=== PATIENT | male | born 1950 | race African-American/Black ===

== ENCOUNTER 2016-09-06 17:00 | Inpatient (IN) | payer MEDICARE ==
[~2016-09-06] VITALS: Ht 185.4 cm; Wt 91.6 kg
--- NOTE | 2016-09-06 17:11 | Emergency Room Report ---
History of Present Illness General Chief Complaint: Pain Source: Patient Present Illness HPI Patient is a 66-year-old male sent in from nursing facility after fall. Patient had recent hip surgery. The patient was noted to have increased pain to his left hip. Patient had been ambulatory with assistance previously. Patient was brought in by EMS. The patient did not strike his head. No loss of consciousness. Allergies: Coded Allergies: No Known Allergies (Unverified , 09/06/16) Patient History Past Medical History: see triage record Reviewed Nursing Documentation: PMH: Agreed, PSxH: Agreed Review of Systems All Other Systems: negative except mentioned in HPI Physical Exam Vital Signs Date Time Temp Pulse Resp B/P Pulse Ox O2 Delivery O2 Flow Rate FiO2 09/06/16 17:03 97.7 87 18 146/76 96 Room Air Sp02 EP Interpretation: reviewed, normal General Appearance: normal inspection, well appearing, no apparent distress, alert Head: atraumatic ENT: normal ENT inspection, hearing grossly normal, normal voice Neck: normal inspection, supple, no bony tend, limited range of motion Respiratory: normal inspection, lungs clear, normal breath sounds, no respiratory distress, no retraction, no wheezing Cardiovascular #1: regular rate, rhythm, no edema Gastrointestinal: normal inspection, normal bowel sounds, non tender, soft, no guarding, no hernia Genitourinary: no CVA tenderness Musculoskeletal: normal inspection, back normal, decreased range of motion - left hip Neurologic: alert, responsive, speech normal Psychiatric: normal inspection Skin: normal color, no rash, laceration - 1 cm Procedures Laceration/Wound Repair Laceration/Wound Repair : Wound Location: other - buttock Wound's Depth, Shape: superficial Wound Length (cm): 1 Irrigated w/ Saline (ccs): 100 Betadine Prep?: Yes Anesthesia: Lidocaine w/ Epi Volume Anesthetic (ccs): 3 Wound Debrided: minimal Wound Repaired With: sutures - 1 horizontal mattress Suture Size/Type: 3:0 Number of Sutures: 1 Layer Closure?: No Sterile Dressing Applied?: Yes Patient Tolerated: Well Complications: None Medical Decision Making Diagnostic Impression: Primary Impression: Fall Additional Impression: Laceration of buttock ER Course Patient presented for extremity pain after fall. Differential diagnosis included but was not limited to fracture, contusion, renal stone, vascular insufficiency, aortic aneurysm, cellulitis. The patient was noted to have a open wound. This was irrigated and closed with 3-0 nylon suture. This will require removal in approximately 10 days. Last Vital Signs Date Time Temp Pulse Resp B/P Pulse Ox O2 Delivery O2 Flow Rate FiO2 09/06/16 17:03 97.7 87 18 146/76 96 Room Air Jun Knapp Sep 06, 2016 17:11
[2016-09-06] MEDS ORDERED: Silver Nitrate Stick TOPIC ONE (17:15)
[2016-09-06] MEDS ORDERED: Lidocaine 2% 20mg/ml/Epi 0.005mg/ml 20ml vial ONE (17:18)
[2016-09-06] MEDS ORDERED: Neosporin Oint Ud Pkt TOPIC ONE (17:28)
[2016-09-06] MEDS ORDERED: Bacitracin Oint UD TOPIC ONE (17:30)
[2016-09-06 17:32] VITALS: BP 149/73
[2016-09-06] MEDS ORDERED: Morphine Sulfate 4mg/ml Inj IM ONE (17:45)
[2016-09-06] MEDS ORDERED: Lidocaine 2% 20mg/ml/Epi 0.005mg/ml 20ml vial INJ ONE (18:00)
[2016-09-06] MEDS ORDERED: XIFAXAN550 MG ORAL (18:43)
[2016-09-06] MEDS ORDERED: FERROUS SULFAT325 MG ORAL (18:43)
[2016-09-06] MEDS ORDERED: CALCIUM CARBON500 M1 PO (18:43)
[2016-09-06] MEDS ORDERED: SPIRONOLACTONE50 MG ORAL (18:43)
[2016-09-06] MEDS ORDERED: GABAPENTIN100 MG ORAL (18:43)
[2016-09-06] MEDS ORDERED: VITAMIN D250000 UNI1 ORAL ×2 (18:43→18:48)
[2016-09-06] MEDS ORDERED: VIBRAMYCIN100 MG ORAL (18:43)
[2016-09-06] MEDS ORDERED: LACTULOSE20 GM/301 ORAL (18:48)
[2016-09-06] MEDS ORDERED: PROTONIX40 MG ORAL ×2 (18:48→18:53)
[2016-09-06] MEDS ORDERED: SANTYL30 GM TP ×2 (18:53→19:06)
[2016-09-06] MEDS ORDERED: LEXAPRO20 MG ORAL (18:53)
[2016-09-06] MEDS ORDERED: ZYPREXA5 MG ORAL (18:53)
[2016-09-06] MEDS ORDERED: ASPIRIN81 MG ORAL (18:53)
[2016-09-06] MEDS ORDERED: CALCIUM ALGINATE1 GM TOPIC (19:06)
[2016-09-06] MEDS ORDERED: SENNA8.6 M2 PO (19:06)
[2016-09-06] MEDS ORDERED: MILK OF MA400 MG/51 ORAL (19:06)
[2016-09-06] MEDS ORDERED: DOCUSATE SODIU100 MG ORAL (19:06)
[2016-09-06] MEDS ORDERED: FLEET ENEMA133 ML RECTAL (19:06)
[2016-09-06] MEDS ORDERED: DULCOLAX10 MG RC (19:06)
[2016-09-06] MEDS ORDERED: ACETAMINOPHEN325 M1 ORAL (19:06)
[2016-09-06 19:30] VITALS: BP 154/84
[2016-09-06 19:49] LABS: MEAN CORPUSCULAR HEMOGLOBIN 36.1 PG (27.0-31.0); MEAN CORPUSCULAR HGB CONC 35.6 G/DL (32.0-36.0); MEAN CORPUSCULAR VOLUME 101 FL (80-99); MEAN PLATELET VOLUME 8.2 FL (6.5-10.1); PLATELET COUNT 65 K/UL (150-450); RED BLOOD COUNT 3.56 M/UL (4.70-6.10); RED CELL DISTRIBUTION WIDTH 14.6 % (11.6-14.8); WHITE BLOOD COUNT 5.4 K/UL (4.8-10.8)
[2016-09-06 19:50] LABS: BASOPHILS % (AUTO) 1.8 % (0.0-2.0); EOSINOPHILS % (AUTO) 0.5 % (0.0-3.0); LYMPHOCYTES % (AUTO) 9.3 % (20.0-45.0); MONOCYTES % (AUTO) 7.4 % (1.0-10.0); NEUTROPHILS % (AUTO) 80.9 % (45.0-75.0)
[2016-09-06 20:01] LABS: INR 1.6 (0.9-1.1); PROTHROMBIN TIME 16.4 SEC (9.30-11.50)
[2016-09-06 20:16] LABS: ALANINE AMINOTRANSFERASE 45 U/L (3-41); ALBUMIN/GLOBULIN RATIO 0.4 (1.0-2.7); ANION GAP 15 (5-15); ASPARTATE AMINO TRANSFERASE 111 U/L (5-40); CALCIUM 8.3 mg/dL (8.6-10.2); CARBON DIOXIDE 21 mEQ/L (20-30); CHLORIDE 100 mEQ/L (98-107); CREATININE 0.8 mg/dL (0.7-1.2); GLOMERULAR FILTRATION RATE > 60 mL/min (>60); HEMOLYSIS 5; POTASSIUM 4.3 mEQ/L (3.4-4.9); SODIUM 136 mEQ/L (135-145); TOTAL PROTEIN 7.1 g/dL (6.6-8.7)
[2016-09-06 20:38] LABS: BILIRUBIN,DIRECT 1.2 mg/dL (0.1-0.3)
[2016-09-06] MEDS ORDERED: Norco 5mg/325mg tab ORAL PRN (21:45)
[2016-09-06 22:00] VITALS: BP 147/77
--- NOTE | 2016-09-06 22:37 | Cardiology Progress Note ---
Assessment/Plan Assessment/Plan The patient is seen and examined. Full consult note will be dictated. Objective Last 24 Hour Vital Signs Date Time Temp Pulse Resp B/P Pulse Ox O2 Delivery O2 Flow Rate FiO2 09/06/16 22:00 97.5 93 19 147/77 97 Room Air 09/06/16 19:30 97.5 84 19 154/84 97 Room Air 09/06/16 17:32 97.5 84 19 149/73 97 Room Air 09/06/16 17:03 97.7 87 18 146/76 96 Room Air Laboratory Tests Test 09/06/16 19:10 White Blood Count 5.4 K/UL (4.8-10.8) Red Blood Count 3.56 M/UL (4.70-6.10) L Hemoglobin 12.9 G/DL (14.2-18.0) L Hematocrit 36.1 % (42.0-52.0) L Mean Corpuscular Volume 101 FL (80-99) H Mean Corpuscular Hemoglobin 36.1 PG (27.0-31.0) H Mean Corpuscular Hemoglobin Concent 35.6 G/DL (32.0-36.0) Red Cell Distribution Width 14.6 % (11.6-14.8) Platelet Count 65 K/UL (150-450) L Mean Platelet Volume 8.2 FL (6.5-10.1) Neutrophils (%) (Auto) 80.9 % (45.0-75.0) H Lymphocytes (%) (Auto) 9.3 % (20.0-45.0) L Monocytes (%) (Auto) 7.4 % (1.0-10.0) Eosinophils (%) (Auto) 0.5 % (0.0-3.0) Basophils (%) (Auto) 1.8 % (0.0-2.0) Prothrombin Time 16.4 SEC (9.30-11.50) H Prothromb Time International Ratio 1.6 (0.9-1.1) H Activated Partial Thromboplast Time 34 SEC (23-33) H Sodium Level 136 mEQ/L (135-145) Potassium Level 4.3 mEQ/L (3.4-4.9) Chloride Level 100 mEQ/L (98-107) Carbon Dioxide Level 21 mEQ/L (20-30) Anion Gap 15 (5-15) Blood Urea Nitrogen 12 mg/dL (7-23) Creatinine 0.8 mg/dL (0.7-1.2) Estimat Glomerular Filtration Rate > 60 mL/min (>60) Glucose Level 114 mg/dL (74-106) H Calcium Level 8.3 mg/dL (8.6-10.2) L Total Bilirubin 2.4 mg/dL (0.0-1.2) H Direct Bilirubin 1.2 mg/dL (0.1-0.3) H Aspartate Amino Transf (AST/SGOT) 111 U/L (5-40) H Alanine Aminotransferase (ALT/SGPT) 45 U/L (3-41) H Alkaline Phosphatase 148 U/L (40-129) H Total Protein 7.1 g/dL (6.6-8.7) Albumin 2.3 g/dL (3.5-5.2) L Globulin 4.8 g/dL Albumin/Globulin Ratio 0.4 (1.0-2.7) L ASHLEY URIBE Sep 06, 2016 22:37
[2016-09-06] MEDS: HYDROmorphone 1mg/ml Carpuject IVP PRN (22:54)
[2016-09-06] MEDS: Propranolol 10mg tab ORAL SCH (23:03)
[2016-09-07] VITALS (7 sets, daily range): BP systolic 119–156; BP diastolic 56–104
[2016-09-07] MEDS: Propranolol 10mg tab ORAL SCH ×3 (05:30→20:14)
[2016-09-07] MEDS: HYDROmorphone 1mg/ml Carpuject IVP PRN ×3 (05:31→20:15)
--- NOTE | 2016-09-07 09:24 | Diagnostic Imaging Report ---
Indication: PAIN Technique: CT scan of the pelvis performed without intravenous contrast material. Axial, coronal, and sagittal images were generated. Dose: Total Dose Length Product - DLP [address] Dose Index - CTDIvol(s) 14.4 mGy. Comparison: None Findings: The bones are osteopenic. The pelvis is intact. There is a left hip hemiarthroplasty. Fracture of the intertrochanteric region of the left femur is noted. There is some soft tissue swelling in the region of the fracture. Degenerative changes are noted in the spine. The aorta and iliac vessels are calcified. There is some ascites in the pelvis. Impression: Left hip hemiarthroplasty. Fracture of the intertrochanteric region of the left femur around the prosthesis. Soft tissue swelling (hematoma) in the proximal left thigh. Atherosclerotic change. Ascites. The above report is concordant with preliminary reading by [employer] . The CT scanner at [facility] is accredited by the [employer] and the scans are performed using protocols designed to limit radiation exposure to as low as reasonably achievable to attain images of sufficient resolution adequate for diagnostic evaluation.
[2016-09-07] MEDS ORDERED: CALCIUM CARBON500 M1 PO (09:56)
--- NOTE | 2016-09-07 10:21 | Diagnostic Imaging Report ---
Indication: PREOP. Technique: XRAY CHEST 1 V. Comparison: None Findings: The heart is normal in size. The lungs are clear. No pleural fluid. There is atherosclerotic change of the aorta. The bones are unremarkable. Impression: Atherosclerotic change. Otherwise negative chest.
[2016-09-07] MEDS ORDERED: Norco 5mg/325mg tab ORAL PRN (10:30)
[2016-09-07 12:06] LABS: CHOLESTEROL/HDL RATIO 2.7 (3.3-4.4)
[2016-09-07 12:12] LABS: THYROID STIMULATING HORMONE 2.23 uIU/mL (0.300-4.500)
[2016-09-07 12:47] LABS: HEMOGLOBIN A1C 4.8 % (< 6.0)
[2016-09-07] MEDS: Lactulose 20gm/30ml UDC ORAL SCH ×2 (12:52→17:59)
[2016-09-07] MEDS: Rifaximin 550mg tab ORAL SCH (17:59)
--- NOTE | 2016-09-07 18:05 | General Progress Note ---
Assessment/Plan Status: stable Assessment/Plan 1- Acute Lt hip Ellie-Prostatic fracture 2- Alcoholic Liver Cirrhosis 3- Thrombocytopenia 4- Anemia 5- Hypercoagulation state 6- Dementia GI, Hemonch, Cardiology services notified and consulted Anticipated surgery on Friday By Dr Dolan Subjective ROS Limited/Unobtainable: Yes - patient demented Allergies: Coded Allergies: No Known Allergies (Unverified , 09/06/16) Objective Last 24 Hour Vital Signs Date Time Temp Pulse Resp B/P Pulse Ox O2 Delivery O2 Flow Rate FiO2 09/07/16 15:42 98.1 76 21 150/71 97 Room Air 09/07/16 14:00 65 95/47 09/07/16 12:39 98.2 68 21 138/88 97 Room Air 09/07/16 08:08 97.9 67 21 156/104 97 Room Air 09/07/16 05:30 72 143/86 09/07/16 04:00 97.9 72 16 143/86 93 Room Air 09/07/16 00:00 98.3 93 17 155/98 97 Room Air 09/06/16 23:03 93 147/77 09/06/16 22:15 97.5 93 19 147/77 97 Room Air 09/06/16 22:00 97.5 93 19 147/77 97 Room Air 09/06/16 19:30 97.5 84 19 154/84 97 Room Air Intake and Output 09/06/16 09/07/16 19:00 07:00 Intake Total 240 ml Balance 240 ml Intake Oral 240 ml # Voids 1 Laboratory Tests 09/06/16 19:10: White Blood Count 5.4, Red Blood Count 3.56L, Hemoglobin 12.9L, Hematocrit 36.1L , Mean Corpuscular Volume 101H, Mean Corpuscular Hemoglobin 36.1H, Mean Corpuscular Hemoglobin Concent 35.6, Red Cell Distribution Width 14.6, Platelet Count 65L, Mean Platelet Volume 8.2, Neutrophils (%) (Auto) 80.9H, Lymphocytes ( %) (Auto) 9.3L, Monocytes (%) (Auto) 7.4, Eosinophils (%) (Auto) 0.5, Basophils (%) (Auto) 1.8, Prothrombin Time 16.4H, Prothromb Time International Ratio 1.6H , Activated Partial Thromboplast Time 34H, Sodium Level 136, Potassium Level 4.3 , Chloride Level 100, Carbon Dioxide Level 21, Anion Gap 15, Blood Urea Nitrogen 12, Creatinine 0.8, Estimat Glomerular Filtration Rate > 60, Glucose Level 114H, Calcium Level 8.3L, Total Bilirubin 2.4H, Direct Bilirubin 1.2H, Aspartate Amino Transf (AST/SGOT) 111H, Alanine Aminotransferase (ALT/SGPT) 45H , Alkaline Phosphatase 148H, Total Protein 7.1, Albumin 2.3L, Globulin 4.8, Albumin/Globulin Ratio 0.4L 09/07/16 11:27: Hemoglobin A1c 4.8, Ammonia 63H, Triglycerides Level 49, Cholesterol Level 119, LDL Cholesterol 65, HDL Cholesterol 44, Cholesterol/HDL Ratio 2.7L, Thyroid Stimulating Hormone (TSH) 2.230 Height (Feet): 6 Height (Inches): 1.00 Weight (Pounds): 202 General Appearance: no apparent distress EENT: PERRL/EOMI Neck: supple Cardiovascular: normal rate Respiratory/Chest: lungs clear Abdomen: soft Extremities: non-tender Neurologic: disoriented, other - demented Shanita Oden MD Sep 07, 2016 18:05
--- NOTE | 2016-09-07 18:14 | Cardiology Progress Note ---
Assessment/Plan Assessment/Plan 1. The patient is clear for "intermediate risk" orthopedic surgery with the risk of coronary artery events perioperatively estimated to be less than 1%. 2. s/p fall with no associated syncope/pre-syncope. 3. Hx of HTN, will increase propranolol dose. 4. Hx of liver cirrhosis Subjective Subjective No cardiac events. Not on the tele unit. Objective Last 24 Hour Vital Signs Date Time Temp Pulse Resp B/P Pulse Ox O2 Delivery O2 Flow Rate FiO2 09/07/16 15:42 98.1 76 21 150/71 97 Room Air 09/07/16 14:00 65 95/47 09/07/16 12:39 98.2 68 21 138/88 97 Room Air 09/07/16 08:08 97.9 67 21 156/104 97 Room Air 09/07/16 05:30 72 143/86 09/07/16 04:00 97.9 72 16 143/86 93 Room Air 09/07/16 00:00 98.3 93 17 155/98 97 Room Air 09/06/16 23:03 93 147/77 09/06/16 22:15 97.5 93 19 147/77 97 Room Air 09/06/16 22:00 97.5 93 19 147/77 97 Room Air 09/06/16 19:30 97.5 84 19 154/84 97 Room Air Intake and Output 09/06/16 09/07/16 19:00 07:00 Intake Total 240 ml Balance 240 ml Intake Oral 240 ml # Voids 1 2D Echo: LVEF 60%, Mild LVH, Mild LAE, RVSP 29, Mod MR, Grade I LVDD Laboratory Tests Test 09/06/16 19:10 09/07/16 11:27 White Blood Count 5.4 K/UL (4.8-10.8) Red Blood Count 3.56 M/UL (4.70-6.10) L Hemoglobin 12.9 G/DL (14.2-18.0) L Hematocrit 36.1 % (42.0-52.0) L Mean Corpuscular Volume 101 FL (80-99) H Mean Corpuscular Hemoglobin 36.1 PG (27.0-31.0) H Mean Corpuscular Hemoglobin Concent 35.6 G/DL (32.0-36.0) Red Cell Distribution Width 14.6 % (11.6-14.8) Platelet Count 65 K/UL (150-450) L Mean Platelet Volume 8.2 FL (6.5-10.1) Neutrophils (%) (Auto) 80.9 % (45.0-75.0) H Lymphocytes (%) (Auto) 9.3 % (20.0-45.0) L Monocytes (%) (Auto) 7.4 % (1.0-10.0) Eosinophils (%) (Auto) 0.5 % (0.0-3.0) Basophils (%) (Auto) 1.8 % (0.0-2.0) Prothrombin Time 16.4 SEC (9.30-11.50) H Prothromb Time International Ratio 1.6 (0.9-1.1) H Activated Partial Thromboplast Time 34 SEC (23-33) H Sodium Level 136 mEQ/L (135-145) Potassium Level 4.3 mEQ/L (3.4-4.9) Chloride Level 100 mEQ/L (98-107) Carbon Dioxide Level 21 mEQ/L (20-30) Anion Gap 15 (5-15) Blood Urea Nitrogen 12 mg/dL (7-23) Creatinine 0.8 mg/dL (0.7-1.2) Estimat Glomerular Filtration Rate > 60 mL/min (>60) Glucose Level 114 mg/dL (74-106) H Calcium Level 8.3 mg/dL (8.6-10.2) L Total Bilirubin 2.4 mg/dL (0.0-1.2) H Direct Bilirubin 1.2 mg/dL (0.1-0.3) H Aspartate Amino Transf (AST/SGOT) 111 U/L (5-40) H Alanine Aminotransferase (ALT/SGPT) 45 U/L (3-41) H Alkaline Phosphatase 148 U/L (40-129) H Total Protein 7.1 g/dL (6.6-8.7) Albumin 2.3 g/dL (3.5-5.2) L Globulin 4.8 g/dL Albumin/Globulin Ratio 0.4 (1.0-2.7) L Hemoglobin A1c 4.8 % (< 6.0) Ammonia 63 umol/L (16-60) H Triglycerides Level 49 mg/dL (< 150) Cholesterol Level 119 mg/dL (< 200) LDL Cholesterol 65 mg/dL (60-99) HDL Cholesterol 44 mg/dL (> 60) Cholesterol/HDL Ratio 2.7 (3.3-4.4) L Thyroid Stimulating Hormone (TSH) 2.230 uIU/mL (0.300-4.500) Objective HEENT: Atruamatic, normocephalic, PERRLA, EOMI Neck: Negative JVD, no carotid bruit, upstroke 2+ B/L Respiratory: normal inspection, lungs clear, normal breath sounds Cardiovascular: Normal S1 S2, regular rate, rhythm, no murmurs, gallops or rubs Gastrointestinal: normal inspection, normal bowel sounds, non tender, soft, no guarding Musculoskeletal: no edema, clubbing or cyanosis, decreased range of motion - left hip ASHLEY URIBE Sep 07, 2016 18:14
[2016-09-07] MEDS ORDERED: Phytonadione 1 MG in D5W 55 ML IVPB ONE (19:00)
[2016-09-07 22:03] LABS: INR 1.7 (0.9-1.1)
[2016-09-07 22:20] LABS: PSA TOTAL < 0.1 ng/mL (< 4.5)
--- NOTE | 2016-09-07 23:08 | Consultation ---
DATE OF CONSULTATION: 09/06/2016 CARDIOLOGY CONSULTATION REFERRING PHYSICIAN: Shanita Oden M.D. REASON FOR CONSULTATION: Preoperative cardiac assessment for noncardiac surgery. HISTORY OF PRESENT ILLNESS: The patient is a very pleasant 66-year-old gentleman, who is sent from nursing facility after an episode of fall, which was not associated with presyncope or syncopal event. Apparently, the patient had a trip and injured his left hip. It is important to mention that the he had left hemiarthroplasty, not too long ago plus trying to ambulate with a walker in the nursing facility. Head CT of pelvic area showed the fracture of the intertrochanteric region of the left femur around the prosthesis and presence of the left hip hemiarthroplasty. Cardiology consultation was made at request of Dr. Oden for preoperative cardiac assessment, as he is scheduled for operation on Friday. At this time, the patient is denying any chest pain or shortness of breath. He states that he walks a few steps with a walker at the nursing facility without having significant symptoms. PAST MEDICAL HISTORY: Significant for 1. History of hepatic encephalopathy. 2. History of liver cirrhosis. 3. History of anemia. 4. History of gastroesophageal reflux. 5. History of depression. 6. History of bipolar disorder. 7. History of left hip hemiarthroplasty. PAST SURGICAL HISTORY: Left hip hemiarthroplasty. MEDICATIONS: List of medications nursing facility includes acetaminophen 650 mg q.4 h. p.r.n. pain and temperature above 101 degrees, Dulcolax 10 mg rectal p.r.n. constipation, calcium carbonate 500 mg twice daily, Santyl one application daily, Colace 100 mg twice daily, Lexapro 20 mg p.o. daily, ferrous sulfate 325 mg twice daily, lactulose 15 mL daily, milk of magnesia 30 mL p.o. daily p.r.n. constipation, fleet enema 133 mL rectal p.r.n. constipation, Zyprexa 5 mg p.o. at bedtime, Protonix 40 mg p.o. daily before breakfast, Zyprexa 550 mg twice daily, senna 8.6 mg p.o. daily, and Aldactone 50 mg p.o. daily. ALLERGIES: No known drug allergies. REVIEW OF SYSTEMS: HEENT: Denies any headache, diplopia, or blurred vision. Constitutional: Generalized weakness. Denies any fever, chills, or night sweats. Cardiovascular: Denies any chest pain or shortness of breath. Denies any PND or orthopnea. Complaints of bilateral lower extremity edema. Denies any syncope or palpitation. Pulmonary: Denies any cough, hemoptysis, or wheezing. Gastrointestinal: Denies any nausea, vomiting, or diarrhea. He has a history of the liver cirrhosis. Genitourinary: Denies any hematuria, dysuria, or incontinence. Neurology: Denies any motor dysfunction, sensory deficit, or altered speech. Musculoskeletal: He has got bilateral lower extremity edema. Difficulty any ambulation. He was using a walker after his surgery at nursing facility and tolerating a few steps. PHYSICAL EXAMINATION: GENERAL: The patient is a pleasant 62-year-old gentleman, older than the stated age, not in no apparent respiratory distress. VITAL SIGNS: Blood pressure at time of arrival to the hospital was 146/76, pulse 87, respirations of 18, temperature 97.7 degrees Fahrenheit, and O2 saturation 96% on room air. HEENT: Atraumatic and normocephalic. Anicteric. Pupils are equal, round, and reactive to light and accommodation. Extraocular muscles intact. NECK: JVP is less than 5 cm. No carotid bruits. Carotid upstrokes 2+ bilaterally. LUNGS: Clear to auscultation bilaterally. CARDIOVASCULAR: Normal S1 and S2. Regular rate and rhythm. There is no gallops, murmurs and rubs. PMI is at fourth costosternal in left midclavicular line. ABDOMEN: Soft, nontender, and nondistended. No hepatosplenomegaly. Positive bowel sounds. EXTREMITIES: There is 1 to 2+ of bilateral lower extremity edema. Also, there is tenderness in the left hip area with motion. LABORATORY AND DIAGNOSTIC DATA: Chest x-ray showed atherosclerotic changes and no acute cardiopulmonary disease. A 12-lead electrocardiogram not done. Laboratory findings, WBC is 5.4, hemoglobin of 12.9, hematocrit 36.1 and platelet count of 265,000. Sodium 136, potassium 4.3, chloride 100, bicarbonate 21, BUN of 12, creatinine 0.8 and glucose is 114. Calcium is 8.3. ASSESSMENT AND PLAN: The patient is a very unfortunate 66-year-old gentleman who is seen in Cardiology consultation for preoperative cardiac assessment, as he is scheduled for left hip open reduction and internal fixation. The patient does not have any history of coronary artery disease, congestive heart failure, or cardiac arrhythmias. His risk factors for coronary artery disease includes hypertension. A 12-lead electrocardiogram shows hypertension. In order to obtain clearance, we would like to obtain 2D echocardiography for assessment of left ventricular systolic function and also 12-lead electrocardiogram. Chest x-ray will also be ordered. A chest x-ray has shown no acute cardiopulmonary disease. Further diagnostic decision will be based on the area result of the above studies. History of hypertension. I would start the patient on low-dose propranolol for portal hypertension in view of his liver cirrhosis and also control blood pressure. History of liver cirrhosis. Status post fall with left intertrochanteric femur fracture. History of left hip hemiarthroplasty. I would like to thank, Dr. Oden, for allowing me to participate in the care of this patient. Wilner Mcnair M.D. DR: DAJA JOB#: [id number] CC:
[2016-09-08] MEDS: HYDROmorphone 1mg/ml Carpuject IVP PRN ×4 (00:51→19:59)
--- NOTE | 2016-09-08 01:28 | History and Physical Report ---
DATE OF ADMISSION: 09/06/2016 SOURCE OF INFORMATION: EMR. HISTORY OF PRESENT ILLNESS: The patient is a pleasant 66-year-old male with a history of left side hip fracture status post surgery. The patient is currently a resident of a senior living. I had a call from the staff regarding an incidental fall and pain in the left hip area. Requested the patient to be transferred to the hospital. Initial evaluation in the emergency room shows a fracture of the intertrochanteric region of the left femur around the prosthesis. The patient was admitted for additional evaluation and surgery. PAST MEDICAL HISTORY: Cirrhosis, anxiety, depression, hypertension, dementia, history of alcoholism, and anemia. PAST SURGICAL HISTORY: Left-sided hip surgery. ALLERGIES: NKDA. SOCIAL HISTORY: The patient is positive for prior history of alcoholism. The patient is a resident of a [facility] facility (limited source of information). Remainder information cannot be obtained. FAMILY HISTORY: Reviewed and noncontributory. Review Of Systems: Limited as the patient is closely demented, however, appears to be stable and comfortable. No chest pain or shortness of breath. No abdominal pain. No fever or chills. No severe headache or blurry vision is noted. PHYSICAL EXAMINATION: VITAL SIGNS: Blood pressure 140/70, temperature 98.2 degrees, and pulse oximetry 98% on room air. HEAD AND NECK: Atraumatic and normocephalic. CHEST: Clear to auscultation. HEART: S1 and S2. Regular rate and rhythm. ABDOMEN: Soft. Tenderness in the right upper quadrant of abdomen. No evidence of shifting dullness to suggest . NEUROLOGY: The patient is awake and alert x1. Positive for gross dementia. LABORATORY AND DIAGNOSTIC DATA: WBC 5.4, hemoglobin 12.9, and platelets 65,000. Sodium 136, potassium 4.3, BUN 12, and creatinine 0.8. Calcium 8.3. AST 110 and ALT 45. Ammonia 63. Albumin 2.3. INR 1.6. Pelvic CT scan and chest x-ray are noted. ASSESSMENT AND PLAN: 1. Left-sided periprosthetic intertrochanteric hip fracture. 2. Liver cirrhosis. 3. Psychiatric disorder. 4. Dementia. 5. Iron deficiency anemia. 6. Hypercoagulation. 7. Abnormal blood sugar. 8. Gastrointestinal and deep vein thrombosis prophylaxis. PLAN OF CARE: We will continue with the SCDs. Surgeon Dr. Dolan and Cardiology Dr. Mcnair have been consulted. We will avoid aspirin and heparin. We will provide 1 mg vitamin K. We will monitor the PT/PTT/NR. Continue with the current pain management with Shannon and Dilaudid p.r.n. Shanita Oden M.D. DR: Jimmie JOB#: [id number] CC: LEATHA
--- NOTE | 2016-09-08 03:38 | Consultation ---
DATE OF CONSULTATION: HEMATOLOGY/ONCOLOGY CONSULTATION CONSULTING PHYSICIAN: Abril Snyder M.D ATTENDING PHYSICIAN: Shanita Oden M.D. REASON FOR CONSULTATION: Coagulopathy, thrombocytopenia, and anemia. CURRENT COMPLAINT/HISTORY OF PRESENT ILLNESS: Dear Dr. Oden, Today, I had an opportunity to see one of your patient, Mr. Channing Freed, who as you are well aware 66-year-old delightful gentleman with past medical history remarkable for history of hip fracture, alcoholic liver cirrhosis, thrombocytopenia, anemia, and dementia. The patient was found to have fall episodes and developed acute left hip periprosthetic fracture. The patient will be scheduled surgery by Dr. Dolan coming Friday. coagulopathy as well as thrombocytopenia and anemia. PAST MEDICAL HISTORY: 1. History of left hip fracture. 2. Alcoholic liver cirrhosis. 3. Thrombocytopenia. 4. Anemia of chronic disease. 5. 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 6. Dementia. MEDICATIONS: 1. Spironolactone. 2. Celexa. 3. 4. Protonix. 5. . 6. . 7. Ferrous sulfate. 8. . 9. Tylenol. 10. Dilaudid. ALLERGIES: NKDA. FAMILY HISTORY: Noncontributory. SOCIAL HISTORY: No history of smoking. No history of alcohol abuse. No history of illicit drug use. REVIEW OF SYSTEMS: General Description: The patient is not in any significant distress, but is chronically ill. Respiratory: Mild shortness of breath on exertion. Gastrointestinal: The patient claims constipation. Neuromuscular: The patient claims muscle weakness. PHYSICAL EXAMINATION: VITAL SIGNS: T-max 97 degrees, respiratory rate 20, heart rate 80, and blood pressure 130/80. HEART: S1 and S2 regular. ABDOMEN: Soft and benign. No organomegaly present. Bowel sounds present. EXTREMITIES: No cyanosis, clubbing, or edema. LABORATORY AND DIAGNOSTIC DATA: , AST 45. Coagulation shows INR 1.6. Hematology show WBC 5.4, hemoglobin 12.9, hematocrit 36.1 and platelets 65,000. IMPRESSION: 1. Thrombocytopenia . 2. Alcoholic liver cirrhosis. 3. Anemia of chronic disease. 4. 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 5. secondary to alcoholic liver cirrhosis. 6. Acute left hip periprosthetic fracture. 7. Alcoholic liver cirrhosis. 8. History of alcohol abuse. 9. Dementia. 10. Psychosis. 11. Failure to thrive. RECOMMENDATIONS: 1. Watch count. 2. Watch coagulopathy. 3. bilateral lowe extremities to rule out DVT. 4. Vitamin K prior to surgery. 5. Platelet transfusion prior to surgery. 6. Close followup. 7. will be appropriate to do platelet transfusion prior to surgery to target platelet count 100,000 and above prior to surgery. 8. Case will be discussed with orthopedic surgeon, Dr. Dolan. All recommendations . Dear Dr. Oden, I greatly appreciate the opportunity to participate in care of one of your patient. this interesting and challenging case. Jacky Snyder MD DR: VARGAS JOB#: [id number] CC:
[2016-09-08 04:00] VITALS: BP 126/61
[2016-09-08 07:12] LABS: MEAN CORPUSCULAR HEMOGLOBIN 33.5 PG (27.0-31.0); MEAN CORPUSCULAR HGB CONC 33.2 G/DL (32.0-36.0); MEAN CORPUSCULAR VOLUME 101 FL (80-99); PLATELET COUNT 96 K/UL (150-450); RED BLOOD COUNT 3.25 M/UL (4.70-6.10); RED CELL DISTRIBUTION WIDTH 14.4 % (11.6-14.8); WHITE BLOOD COUNT 10.5 K/UL (4.8-10.8)
[2016-09-08 07:42] LABS: ALANINE AMINOTRANSFERASE 38 U/L (3-41); ALBUMIN/GLOBULIN RATIO 0.4 (1.0-2.7); ANION GAP 12 (5-15); ASPARTATE AMINO TRANSFERASE 80 U/L (5-40); CALCIUM 8.2 mg/dL (8.6-10.2); CARBON DIOXIDE 23 mEQ/L (20-30); CHLORIDE 98 mEQ/L (98-107); GLOMERULAR FILTRATION RATE > 60 mL/min (>60); HEMOLYSIS 3; POTASSIUM 4.6 mEQ/L (3.4-4.9); SODIUM 133 mEQ/L (135-145); TOTAL PROTEIN 6.1 g/dL (6.6-8.7)
[2016-09-08 08:00] LABS: BILIRUBIN,DIRECT 1.1 mg/dL (0.1-0.3)
[2016-09-08 08:13] VITALS: BP 114/62
[2016-09-08 08:19] LABS: ANISOCYTOSIS 1+; BAND NEUTROPHILS % (MANUAL) 0 % (0-8); BASOPHILS % (MANUAL) 0 % (0-2); EOSINOPHILS % (MANUAL) 0 % (0-3); HYPOCHROMASIA 1+; LYMPHOCYTES % (MANUAL) 4 % (20-45); MACROCYTES 1+; NEUTROPHILS % (MANUAL) 91 % (45-75); PLATELET ESTIMATE DECREASED; PLATELET MORPHOLOGY NORMAL; TOTAL CELLS COUNTED 100
[2016-09-08] MEDS: Spironolactone 50mg tab ORAL SCH (08:20)
[2016-09-08] MEDS: Rifaximin 550mg tab ORAL SCH ×2 (08:20→18:00)
[2016-09-08] MEDS: Lactulose 20gm/30ml UDC ORAL SCH ×3 (08:21→18:00)
[2016-09-08] MEDS: Propranolol 10mg tab ORAL SCH ×4 (08:22→21:00)
--- NOTE | 2016-09-08 10:42 | General Progress Note ---
Assessment/Plan Status: stable Assessment/Plan 1. Left-sided periprosthetic intertrochanteric hip fracture. 2. Liver cirrhosis. 3. Psychiatric disorder. 4. Dementia. 5. Iron deficiency anemia. 6. Hypercoagulation. 7. Abnormal blood sugar. 8. Gastrointestinal and deep vein thrombosis prophylaxis. GI, Hemonch, Cardiology Notes were reviewed Anticipated surgery on Friday By Dr Magdaleno Ojeda ROS Limited/Unobtainable: Yes Constitutional: Reports: no symptoms HEENT: Reports: no symptoms Respiratory: Reports: no symptoms Allergies: Coded Allergies: No Known Allergies (Unverified , 09/06/16) Objective Last 24 Hour Vital Signs Date Time Temp Pulse Resp B/P Pulse Ox O2 Delivery O2 Flow Rate FiO2 09/08/16 08:22 66 114/62 09/08/16 08:13 97.2 66 21 114/62 96 Room Air 09/08/16 06:23 97.9 09/08/16 04:00 99.0 73 18 126/61 95 Room Air 09/07/16 23:39 97.9 68 18 126/56 99 Room Air 09/07/16 20:14 65 119/76 09/07/16 20:00 97.3 65 18 119/76 100 Room Air 09/07/16 15:42 98.1 76 21 150/71 97 Room Air 09/07/16 14:00 65 95/47 09/07/16 12:39 98.2 68 21 138/88 97 Room Air Intake and Output 09/07/16 09/08/16 19:00 07:00 Intake Total 240 ml 450 ml Output Total 600 ml Balance 240 ml -150 ml Intake Oral 240 ml 450 ml Output Urine Total 600 ml # Voids 3 Laboratory Tests 09/07/16 11:27: Hemoglobin A1c 4.8, Ammonia 63H, Triglycerides Level 49, Cholesterol Level 119, LDL Cholesterol 65, HDL Cholesterol 44, Cholesterol/HDL Ratio 2.7L, Thyroid Stimulating Hormone (TSH) 2.230 09/07/16 21:30: Prothrombin Time 18.0H, Prothromb Time International Ratio 1.7H, Alpha Fetoprotein [Pending], Carcinoembryonic Antigen 9.1H, Prostate Specific Antigen < 0.1, Hepatitis A IgM Antibody [Pending], Hepatitis B Surface Antigen [Pending] , Hepatitis B Core IgM Antibody [Pending], Hepatitis C Antibody [Pending], HIV ( 1&2) Antibody Rapid Negative 09/08/16 06:15: White Blood Count 10.5#, Red Blood Count 3.25L, Hemoglobin 10.9L, Hematocrit 32.8L, Mean Corpuscular Volume 101H, Mean Corpuscular Hemoglobin 33.5H, Mean Corpuscular Hemoglobin Concent 33.2, Red Cell Distribution Width 14.4, Platelet Count 96L, Mean Platelet Volume 8.0, Neutrophils (%) (Auto) , Lymphocytes (%) ( Auto) , Monocytes (%) (Auto) , Eosinophils (%) (Auto) , Basophils (%) (Auto) , Differential Total Cells Counted 100, Neutrophils % (Manual) 91H, Lymphocytes % (Manual) 4L, Monocytes % (Manual) 5, Eosinophils % (Manual) 0, Basophils % ( Manual) 0, Band Neutrophils 0, Platelet Estimate DecreasedL, Platelet Morphology Normal, Hypochromasia 1+, Anisocytosis 1+, Macrocytosis 1+, Sodium Level 133L, Potassium Level 4.6, Chloride Level 98, Carbon Dioxide Level 23, Anion Gap 12, Blood Urea Nitrogen 26H, Creatinine 1.0, Estimat Glomerular Filtration Rate > 60, Glucose Level 107H, Calcium Level 8.2L, Total Bilirubin 2.6H, Direct Bilirubin 1.1H, Aspartate Amino Transf (AST/SGOT) 80H, Alanine Aminotransferase (ALT/SGPT) 38, Alkaline Phosphatase 112, Total Protein 6.1L, Albumin 1.9L, Globulin 4.2, Albumin/Globulin Ratio 0.4L Height (Feet): 6 Height (Inches): 1.00 Weight (Pounds): 202 General Appearance: no apparent distress EENT: PERRL/EOMI Neck: supple Cardiovascular: normal rate Respiratory/Chest: lungs clear Abdomen: soft Extremities: other - pianful on movement. Limited ROM of left LE Neurologic: disoriented, other - demented. limited source of info Shanita Oden MD Sep 08, 2016 10:42
[2016-09-08 12:15] VITALS: BP 111/47
--- NOTE | 2016-09-08 12:55 | General Progress Note ---
Assessment/Plan Assessment/Plan IMPRESSION: 1. Thrombocytopenia secondary to alcoholic liver cirrhosis. Is cleared for surgery, plt close to 100k as required and INR <2 2. Alcoholic liver cirrhosis. 3. Anemia of chronic disease. 4. 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 5. Acute left hip periprosthetic fracture. 6. History of alcohol abuse. 7. Dementia. 8. Psychosis. 9. Failure to thrive. RECOMMENDATIONS: 1. Watch counts, transfuse to hgb >7. 2. Watch coagulopathy. 3. Duplex bilateral lower extremities to rule out DVT. 4. Vitamin K prior to surgery. 5. Platelet transfusion prior to surgery. 6. Close followup. 7. Will be appropriate to do platelet transfusion prior to surgery to target platelet count 100,000 and above prior to surgery. 8. Case will be discussed with orthopedic surgeon, Dr. Dolan. 9. Appreciate consultation! Subjective ROS Limited/Unobtainable: Yes Constitutional: Reports: no symptoms HEENT: Reports: no symptoms Cardiovascular: Reports: no symptoms Respiratory: Reports: no symptoms Gastrointestinal/Abdominal: Reports: constipated Genitourinary: Reports: no symptoms Neurologic/Psychiatric: Reports: no symptoms Endocrine: Reports: no symptoms Hematologic/Lymphatic: Reports: anemia Allergies: Coded Allergies: No Known Allergies (Unverified , 09/06/16) Subjective pt resting, awaits hip surgery Saturday 09/09 Objective Last 24 Hour Vital Signs Date Time Temp Pulse Resp B/P Pulse Ox O2 Delivery O2 Flow Rate FiO2 09/08/16 12:15 97.6 64 20 111/47 95 Room Air 09/08/16 08:22 66 114/62 09/08/16 08:13 97.2 66 21 114/62 96 Room Air 09/08/16 06:23 97.9 09/08/16 04:00 99.0 73 18 126/61 95 Room Air 09/07/16 23:39 97.9 68 18 126/56 99 Room Air 09/07/16 20:14 65 119/76 09/07/16 20:00 97.3 65 18 119/76 100 Room Air 09/07/16 15:42 98.1 76 21 150/71 97 Room Air 09/07/16 14:00 65 95/47 Intake and Output 09/07/16 09/08/16 19:00 07:00 Intake Total 240 ml 450 ml Output Total 600 ml Balance 240 ml -150 ml Intake Oral 240 ml 450 ml Output Urine Total 600 ml # Voids 3 Laboratory Tests 09/07/16 21:30: Prothrombin Time 18.0H, Prothromb Time International Ratio 1.7H, Alpha Fetoprotein [Pending], Carcinoembryonic Antigen 9.1H, Prostate Specific Antigen < 0.1, Hepatitis A IgM Antibody [Pending], Hepatitis B Surface Antigen [Pending] , Hepatitis B Core IgM Antibody [Pending], Hepatitis C Antibody [Pending], HIV ( 1&2) Antibody Rapid Negative 09/08/16 06:15: White Blood Count 10.5#, Red Blood Count 3.25L, Hemoglobin 10.9L, Hematocrit 32.8L, Mean Corpuscular Volume 101H, Mean Corpuscular Hemoglobin 33.5H, Mean Corpuscular Hemoglobin Concent 33.2, Red Cell Distribution Width 14.4, Platelet Count 96L, Mean Platelet Volume 8.0, Neutrophils (%) (Auto) , Lymphocytes (%) ( Auto) , Monocytes (%) (Auto) , Eosinophils (%) (Auto) , Basophils (%) (Auto) , Differential Total Cells Counted 100, Neutrophils % (Manual) 91H, Lymphocytes % (Manual) 4L, Monocytes % (Manual) 5, Eosinophils % (Manual) 0, Basophils % ( Manual) 0, Band Neutrophils 0, Platelet Estimate DecreasedL, Platelet Morphology Normal, Hypochromasia 1+, Anisocytosis 1+, Macrocytosis 1+, Sodium Level 133L, Potassium Level 4.6, Chloride Level 98, Carbon Dioxide Level 23, Anion Gap 12, Blood Urea Nitrogen 26H, Creatinine 1.0, Estimat Glomerular Filtration Rate > 60, Glucose Level 107H, Calcium Level 8.2L, Total Bilirubin 2.6H, Direct Bilirubin 1.1H, Aspartate Amino Transf (AST/SGOT) 80H, Alanine Aminotransferase (ALT/SGPT) 38, Alkaline Phosphatase 112, Total Protein 6.1L, Albumin 1.9L, Globulin 4.2, Albumin/Globulin Ratio 0.4L Height (Feet): 6 Height (Inches): 1.00 Weight (Pounds): 202 General Appearance: no apparent distress EENT: PERRL/EOMI Neck: non-tender Cardiovascular: normal peripheral pulses Respiratory/Chest: lungs clear Abdomen: normal bowel sounds Extremities: other - limited ROM LLE d/t hip fx Edema: no edema noted Leg (L), no edema noted Leg (R), no edema noted Pedal (L) , no edema noted Pedal (R) 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
[2016-09-08] MEDS ORDERED: NS 275ml ONE (13:50)
[2016-09-08] MEDS ORDERED: Tubing IV Secondary IV ONE (13:50)
[2016-09-08 16:15] VITALS: BP 99/54
[2016-09-08 19:34] VITALS: BP 113/46
--- NOTE | 2016-09-08 22:00 | Cardiology Progress Note ---
Assessment/Plan Assessment/Plan 1. The patient is clear for "intermediate risk" orthopedic surgery with the risk of coronary artery events perioperatively estimated to be less than 1%. 2D echo showed normal LV systolic function with LVEF at 65%. 2. s/p fall with no associated syncope/pre-syncope. 3. Hx of HTN, will increase propranolol dose. 4. Hx of liver cirrhosis Subjective Subjective No cardiac events. Echocardiogram was reviewed. Objective Last 24 Hour Vital Signs Date Time Temp Pulse Resp B/P Pulse Ox O2 Delivery O2 Flow Rate FiO2 09/08/16 21:00 54 113/46 09/08/16 19:34 98.8 54 20 113/46 94 Room Air 09/08/16 17:59 51 96/47 09/08/16 16:15 98.0 73 21 99/54 95 Room Air 09/08/16 12:45 61 90/51 09/08/16 12:15 97.6 64 20 111/47 95 Room Air 09/08/16 08:22 66 114/62 09/08/16 08:13 97.2 66 21 114/62 96 Room Air 09/08/16 06:23 97.9 09/08/16 04:00 99.0 73 18 126/61 95 Room Air 09/07/16 23:39 97.9 68 18 126/56 99 Room Air Intake and Output 09/07/16 09/08/16 19:00 07:00 Intake Total 240 ml 450 ml Output Total 600 ml Balance 240 ml -150 ml Intake Oral 240 ml 450 ml Output Urine Total 600 ml # Voids 3 2D Echo: LVEF 65%, Mild LVH, Grade I LVDD, Mod MR, RVSP 29 mmHg Laboratory Tests Test 09/08/16 06:15 White Blood Count 10.5 K/UL (4.8-10.8) # Red Blood Count 3.25 M/UL (4.70-6.10) L Hemoglobin 10.9 G/DL (14.2-18.0) L Hematocrit 32.8 % (42.0-52.0) L Mean Corpuscular Volume 101 FL (80-99) H Mean Corpuscular Hemoglobin 33.5 PG (27.0-31.0) H Mean Corpuscular Hemoglobin Concent 33.2 G/DL (32.0-36.0) Red Cell Distribution Width 14.4 % (11.6-14.8) Platelet Count 96 K/UL (150-450) L Mean Platelet Volume 8.0 FL (6.5-10.1) Neutrophils (%) (Auto) % (45.0-75.0) Lymphocytes (%) (Auto) % (20.0-45.0) Monocytes (%) (Auto) % (1.0-10.0) Eosinophils (%) (Auto) % (0.0-3.0) Basophils (%) (Auto) % (0.0-2.0) Differential Total Cells Counted 100 Neutrophils % (Manual) 91 % (45-75) H Lymphocytes % (Manual) 4 % (20-45) L Monocytes % (Manual) 5 % (1-10) Eosinophils % (Manual) 0 % (0-3) Basophils % (Manual) 0 % (0-2) Band Neutrophils 0 % (0-8) Platelet Estimate Decreased L Platelet Morphology Normal Hypochromasia 1+ Anisocytosis 1+ Macrocytosis 1+ Sodium Level 133 mEQ/L (135-145) L Potassium Level 4.6 mEQ/L (3.4-4.9) Chloride Level 98 mEQ/L (98-107) Carbon Dioxide Level 23 mEQ/L (20-30) Anion Gap 12 (5-15) Blood Urea Nitrogen 26 mg/dL (7-23) H Creatinine 1.0 mg/dL (0.7-1.2) Estimat Glomerular Filtration Rate > 60 mL/min (>60) Glucose Level 107 mg/dL (74-106) H Calcium Level 8.2 mg/dL (8.6-10.2) L Total Bilirubin 2.6 mg/dL (0.0-1.2) H Direct Bilirubin 1.1 mg/dL (0.1-0.3) H Aspartate Amino Transf (AST/SGOT) 80 U/L (5-40) H Alanine Aminotransferase (ALT/SGPT) 38 U/L (3-41) Alkaline Phosphatase 112 U/L (40-129) Total Protein 6.1 g/dL (6.6-8.7) L Albumin 1.9 g/dL (3.5-5.2) L Globulin 4.2 g/dL Albumin/Globulin Ratio 0.4 (1.0-2.7) L Microbiology Date/Time Source Procedure Growth Status 4/14/17 19:55 Rectum VRE Culture - Final Enterococcus Faecium - Vre Complete Objective HEENT: Atruamatic, normocephalic, PERRLA, EOMI Neck: Negative JVD, no carotid bruit, upstroke 2+ B/L Respiratory: normal inspection, lungs clear, normal breath sounds Cardiovascular: Normal S1 S2, regular rate, rhythm, 2/6 HSM at the apex, no gallops or rubs Gastrointestinal: normal inspection, normal bowel sounds, non tender, soft, no guarding Musculoskeletal: no edema, clubbing or cyanosis, decreased range of motion - left hip ASHLEY URIBE Sep 08, 2016 22:00
[2016-09-09] VITALS (9 sets, daily range): BP systolic 100–139; BP diastolic 49–67
--- NOTE | 2016-09-09 01:58 | Consultation ---
DATE OF CONSULTATION: 09/08/2016 REQUESTING PHYSICIAN: Shanita Oden M.D. CHIEF COMPLAINT: Left hip pain. HISTORY OF PRESENT ILLNESS: The patient is a pleasant 66-year-old gentleman with a history of psychiatric issues who had a mechanical fall approximately 2 weeks ago. Today, he underwent a left hip hemiarthroplasty and was sent to rehabilitation center brought here to [place]. He had a fall, had significant pain and difficulty ambulating. He was brought to the ER and was diagnosed with periprosthetic femur fracture. He was admitted. Orthopedic consult was obtained for further care and recommendation. PAST MEDICAL HISTORY: Reviewed from the intake chart. PAST SURGICAL HISTORY: Reviewed from the intake chart. MEDICATIONS: Reviewed from the intake chart. PHYSICAL EXAMINATION: The patient is little confused. Left hip incision shows some drainage but is clean, dry, and intact. There is +1 in the left lower extremity. Posterior calf is soft. No palpable cord. Neurovascular was normal. IMAGING STUDIES: Show left periprosthetic femur fracture, had hip hemiarthroplasty. ASSESSMENT: Left periprosthetic femur fracture. DISCUSSION: At this point, I have had a lengthy discussion with his sister who is the only person who is really involved in his care. I discussed with her that we proceed with surgery tomorrow. This would entail fixing the bone and then using implant more distal fixation ambulation. Risks, limitations, expectations, and complications of the procedure were discussed in detail. All questions were addressed. We will proceed with surgery accordingly. Georgi Dolan M.D. DR: MICHAEL JOB#: [id number] CC:
[2016-09-09] MEDS: HYDROmorphone 1mg/ml Carpuject IVP PRN ×3 (06:06→15:27)
[2016-09-09 07:00] LABS: ALANINE AMINOTRANSFERASE 36 U/L (3-41); ALBUMIN/GLOBULIN RATIO 0.4 (1.0-2.7); ANION GAP 10 (5-15); ASPARTATE AMINO TRANSFERASE 79 U/L (5-40); CALCIUM 8.1 mg/dL (8.6-10.2); CARBON DIOXIDE 24 mEQ/L (20-30); CHLORIDE 102 mEQ/L (98-107); CREATININE 0.8 mg/dL (0.7-1.2); GLOMERULAR FILTRATION RATE > 60 mL/min (>60); HEMOLYSIS 1; POTASSIUM 4.4 mEQ/L (3.4-4.9); SODIUM 136 mEQ/L (135-145); TOTAL PROTEIN 5.8 g/dL (6.6-8.7)
[2016-09-09 07:06] LABS: MEAN CORPUSCULAR HEMOGLOBIN 33.9 PG (27.0-31.0); MEAN CORPUSCULAR HGB CONC 33.4 G/DL (32.0-36.0); MEAN CORPUSCULAR VOLUME 101 FL (80-99); MEAN PLATELET VOLUME 8.1 FL (6.5-10.1); PLATELET COUNT 79 K/UL (150-450); RED CELL DISTRIBUTION WIDTH 14.5 % (11.6-14.8); WHITE BLOOD COUNT 4.8 K/UL (4.8-10.8)
[2016-09-09 07:20] LABS: BILIRUBIN,DIRECT 0.9 mg/dL (0.1-0.3)
[2016-09-09] MEDS: Propranolol 10mg tab ORAL SCH ×4 (09:00→21:25)
--- NOTE | 2016-09-09 09:07 | Diagnostic Imaging Report ---
Indication: PAIN Technique: XRAY PELVIS 1 VIEW Comparison: None. Findings: The pelvis is intact. No fracture. No bone destruction. There is a left hip hemiarthroplasty. Impression: Left hip hemiarthroplasty. No fracture identified on this one view.
[2016-09-09] MEDS: Rifaximin 550mg tab ORAL SCH ×2 (09:18→17:54)
[2016-09-09] MEDS: Spironolactone 50mg tab ORAL SCH (09:18)
[2016-09-09] MEDS: Lactulose 20gm/30ml UDC ORAL SCH ×3 (09:19→17:53)
[2016-09-09 09:40] LABS: LYMPHOCYTES % (MANUAL) 12 % (20-45); NEUTROPHILS % (MANUAL) 77 % (45-75); TOTAL CELLS COUNTED 100
[2016-09-09 09:41] LABS: ANISOCYTOSIS 1+; BAND NEUTROPHILS % (MANUAL) 0 % (0-8); BASOPHILS % (MANUAL) 0 % (0-2); EOSINOPHILS % (MANUAL) 0 % (0-3); HYPOCHROMASIA 1+; MACROCYTES 1+; PLATELET ESTIMATE DECREASED; PLATELET MORPHOLOGY NORMAL
--- NOTE | 2016-09-09 11:53 | General Progress Note ---
Assessment/Plan Status: stable Assessment/Plan 1. Left-sided periprosthetic intertrochanteric hip fracture. 2. Liver cirrhosis. 3. Psychiatric disorder. 4. Dementia. 5. Iron deficiency anemia. 6. Hypercoagulation. 7. Abnormal blood sugar. 8. Gastrointestinal and deep vein thrombosis prophylaxis. GI, Hemonch, Cardiology Notes were reviewed case discussed with Dr Dolan in detailed Given the anticipated complexity of surgical technique, patient will be transferred to [facility] Subjective ROS Limited/Unobtainable: Yes Constitutional: Reports: no symptoms HEENT: Reports: no symptoms Cardiovascular: Reports: no symptoms Allergies: Coded Allergies: No Known Allergies (Unverified , 09/06/16) Objective Last 24 Hour Vital Signs Date Time Temp Pulse Resp B/P Pulse Ox O2 Delivery O2 Flow Rate FiO2 09/09/16 09:00 63 100/52 09/09/16 08:00 97.7 63 20 100/52 100 Room Air 09/09/16 06:00 97.9 64 20 112/54 96 Room Air 09/09/16 04:00 97.9 64 20 112/54 96 Room Air 09/09/16 01:38 98.4 71 20 113/58 95 Room Air 09/09/16 00:00 98.4 71 20 113/58 95 Room Air 09/08/16 21:00 54 113/46 09/08/16 19:34 98.8 54 20 113/46 94 Room Air 09/08/16 17:59 51 96/47 09/08/16 16:15 98.0 73 21 99/54 95 Room Air 09/08/16 12:45 61 90/51 09/08/16 12:15 97.6 64 20 111/47 95 Room Air Intake and Output 09/08/16 09/09/16 19:00 07:00 Intake Total 240 ml 120 ml Output Total 300 ml Balance -60 ml 120 ml Intake Oral 240 ml 120 ml Output Urine Total 300 ml # Voids 3 2 Laboratory Tests 09/09/16 05:55: White Blood Count 4.8#, Red Blood Count 3.00L, Hemoglobin 10.2L, Hematocrit 30.5L, Mean Corpuscular Volume 101H, Mean Corpuscular Hemoglobin 33.9H, Mean Corpuscular Hemoglobin Concent 33.4, Red Cell Distribution Width 14.5, Platelet Count 79L, Mean Platelet Volume 8.1, Neutrophils (%) (Auto) , Lymphocytes (%) ( Auto) , Monocytes (%) (Auto) , Eosinophils (%) (Auto) , Basophils (%) (Auto) , Differential Total Cells Counted 100, Neutrophils % (Manual) 77H, Lymphocytes % (Manual) 12L, Monocytes % (Manual) 11H, Eosinophils % (Manual) 0, Basophils % ( Manual) 0, Band Neutrophils 0, Platelet Estimate DecreasedL, Platelet Morphology Normal, Hypochromasia 1+, Anisocytosis 1+, Macrocytosis 1+, Sodium Level 136, Potassium Level 4.4, Chloride Level 102, Carbon Dioxide Level 24, Anion Gap 10, Blood Urea Nitrogen 23, Creatinine 0.8, Estimat Glomerular Filtration Rate > 60, Glucose Level 96, Calcium Level 8.1L, Total Bilirubin 2.1H , Direct Bilirubin 0.9H, Aspartate Amino Transf (AST/SGOT) 79H, Alanine Aminotransferase (ALT/SGPT) 36, Alkaline Phosphatase 106, Total Protein 5.8L, Albumin 1.7L, Globulin 4.1, Albumin/Globulin Ratio 0.4L Height (Feet): 6 Height (Inches): 1.00 Weight (Pounds): 202 General Appearance: no apparent distress EENT: PERRL/EOMI Neck: supple Cardiovascular: normal rate Respiratory/Chest: lungs clear Abdomen: soft Extremities: other - painful left hip and decreased ROM Neurologic: disoriented, other - demented Shanita Oden MD Sep 09, 2016 11:53
--- NOTE | 2016-09-09 16:33 | GI Initial Consult Note ---
Bren Palacios N.PSong 09/09/16 1633: History of Present Illness General Date patient seen: Sep 09, 2016 Time patient seen: 11:00 Reason for Hospitalization: Pain Referring physician: KIMBERLYN BROWN Reason for Consultation: ANEMIA / ELEVATED CEA Present Illness HPI The patient is a pleasant 66-year-old male with a history of left side hip fracture status post surgery. The [facility] a [facility] of a [facility]. Call from the staff regarding an incidental fall and pain in the left hip area. Requested the patient to be transferred to the hospital. Initial evaluation in the emergency room shows a fracture of the intertrochanteric region of the left femur around the prosthesis. The patient was admitted for additional evaluation and surgery. GI CONSULT: HPI as noted above. GI consulted for evaluation of anemia and elevated CEA. Pt seen on floor, awake A&Ox4 NAD with noted AMS and BLE + 1 edema. Pt presents today for MIKI revision, iron deficiency anemia, thrombocytopenia, elevated ammonia 60, and elevated CEA 9.1 Unknown history of endoscopic procedures. Home Meds Reported Medications Hydromorphone HCl (Hydromorphone HCl) 1 Mg/1 Ml Syringe, 1 MG IVP Q4HR Y for Severe Pain (Pain Scale 7-10), MG 09/09/16 Hydromorphone Hcl (DILAUDID) 1 Mg/1 Ml Liquid, 1 MG PO, ML 09/09/16 Acetaminophen (Acetaminophen) 650 Mg/20.3 Ml Solution, 650 MG ORAL Q4HR Y for Mild Pain/Temp > 100.5, ML 0 Refills 09/09/16 Hydrocodone Bit/Acetaminophen 5-325* (NORCO 5-325 TABLET*) 1 Each Tablet, 1 TAB ORAL Q4H Y for Moderate Pain (Pain Scale 4-6), TAB 09/09/16 Lactulose (LACTULOSE) 10 Gm/15 Ml Solution, 10 GM PO TID 09/09/16 Rifaximin* (XIFAXAN*) 550 Mg Tablet, 550 MG ORAL TWICE A DAY for 30 Days, MG 0 Refills 09/09/16 Ferrous Sulfate (Ferrous Sulfate) 325 Mg Tablet, 1 TAB ORAL TWICE A DAY, #60 TAB 0 Refills 09/09/16 Calcium Carbonate (CALCIUM CARBONATE) 500 Mg Tablet, 500 MG PO BID, TAB 09/09/16 Propranolol HCl (Propranolol HCl) 20 Mg Tablet, 20 MG PO FOUR TIMES A DAY, TAB 09/09/16 Olanzapine* (ZYPREXA*) 5 Mg Tablet, 5 MG ORAL BEDTIME, TAB 09/09/16 Pantoprazole* (PROTONIX*) 40 Mg Tablet.dr, 40 MG ORAL BEFORE BREAKFAST, TAB 09/09/16 Escitalopram Oxalate* (LEXAPRO*) 20 Mg Tablet, 20 MG ORAL DAILY, TAB 09/09/16 Spironolact/Hydrochlorothiazid (ALDACTAZIDE 50-50 TABLET) 1 Each Tablet, 1 TAB ORAL DAILY, TAB 09/09/16 Pantoprazole (PANTOPRAZOLE) 20 Mg Tablet.dr, 20 MG ORAL DAILY, #10 TAB 0 Refills 09/09/16 Spironolact/Hydrochlorothiazid (SPIRONOLACTONE-HCTZ 25-25 TAB) 1 Each Tablet, 1 TAB ORAL DAILY, TAB 09/09/16 Calcium Carbonate (CALCIUM CARBONATE) 500 Mg Tablet, 500 MG PO BID, TAB 09/07/16 Acetaminophen* (ACETAMINOPHEN 325MG TABLET*) 325 Mg Tablet, 650 MG ORAL Q4H/PRN for mild pain/fever >101F 09/06/16 Sennosides (SENNA) 8.6 Mg Tablet, 8.6 MG PO 09/06/16 Na Phos,M-B/Na Phos,Di-Ba* (FLEET ENEMA*) 133 Ml Enema, 133 ML RECTAL PRN 09/06/16 Bisacodyl (DULCOLAX) 10 Mg Supp.rect, 10 MG RC PRN for if MOM not effective 09/06/16 Magnesium Hydroxide* (MILK OF MAGNESIA*) 400 Mg/5 Ml Oral.susp, 30 ML ORAL Daily /PRN 09/06/16 Docusate Sodium* (DOCUSATE SODIUM*) 100 Mg Capsule, 100 MG ORAL TWICE A DAY 09/06/16 Collagenase Clostridium Hist. (Santyl) 30 Gm Oint...g., 1 APPLIC TP Daily/PRN for L trochanter/surgical [id number] 09/06/16 Escitalopram Oxalate* (LEXAPRO*) 20 Mg Tablet, 20 MG ORAL DAILY 09/06/16 Olanzapine* (ZYPREXA*) 5 Mg Tablet, 5 MG ORAL BEDTIME 09/06/16 Pantoprazole* (PROTONIX*) 40 Mg Tablet.dr, 40 MG ORAL BEFORE BREAKFAST 09/06/16 Lactulose (LACTULOSE*) 20 Gm/30 Ml Solution, 15 ML ORAL for hold for LBM 09/06/16 Spironolactone* (ALDACTONE*) 50 Mg Tablet, 50 MG ORAL DAILY 09/06/16 Rifaximin* (XIFAXAN*) 550 Mg Tablet, 550 MG ORAL TWICE A DAY, 0 Refills 09/06/16 Ferrous Sulfate* (FERROUS SULFATE*) 325 Mg Tablet, 325 MG ORAL TWICE A DAY, 0 Refills 09/06/16 Discontinued Reported Medications Calcium Alginate (CALCIUM ALGINATE) 1 Gm Powder, 1 APPLIC TOPIC Daily/PRN for L trochanter/surgical [id number] 09/06/16 Aspirin* (ASPIRIN*) 81 Mg Tab.chew, 81 MG ORAL DAILY 09/06/16 Ergocalciferol (Vitamin D2)* (VITAMIN D*) 50,000 Unit Capsule, 27526 UNIT ORAL Friday/, CAP 09/06/16 Ergocalciferol (Vitamin D2)* (VITAMIN D*) 50,000 Unit Capsule, 43569 UNIT ORAL TWICE A WEEK Y for FRI AND 09/06/16 Doxycycline Hyclate* (VIBRAMYCIN*) 100 Mg Capsule, 100 MG ORAL EVERY 12 HOURS for x2 more days, 0 Refills 09/06/16 Calcium Carbonate (CALCIUM CARBONATE) 500 Mg Tablet, 500 MG PO 09/06/16 Gabapentin* (GABAPENTIN*) 100 Mg Capsule, 100 MG ORAL BID 09/06/16 Med list reviewed/reconciled: Yes Allergies: Coded Allergies: No Known Allergies (Unverified , 09/06/16) Patient History Limited by: medical condition History Provided By: Medical Record [facility] Narrative PAST MEDICAL HISTORY: Cirrhosis, anxiety, depression, hypertension, dementia, history of alcoholism, and anemia. PAST SURGICAL HISTORY: Left-sided hip surgery. ALLERGIES: NKDA. SOCIAL HISTORY: The patient is positive for prior history of alcoholism. The patient is a resident of a longterm facility (limited source of information). Remainder information cannot be obtained. Review of Systems All Other Systems: limited Physical Exam Vital Signs Date Time Temp Pulse Resp B/P Pulse Ox O2 Delivery O2 Flow Rate FiO2 09/06/16 17:03 97.7 87 18 146/76 96 Room Air Sp02 EP Interpretation: reviewed Labs Laboratory Tests Test 09/09/16 05:55 White Blood Count 4.8 K/UL (4.8-10.8) # Red Blood Count 3.00 M/UL (4.70-6.10) L Hemoglobin 10.2 G/DL (14.2-18.0) L Hematocrit 30.5 % (42.0-52.0) L Mean Corpuscular Volume 101 FL (80-99) H Mean Corpuscular Hemoglobin 33.9 PG (27.0-31.0) H Mean Corpuscular Hemoglobin Concent 33.4 G/DL (32.0-36.0) Red Cell Distribution Width 14.5 % (11.6-14.8) Platelet Count 79 K/UL (150-450) L Mean Platelet Volume 8.1 FL (6.5-10.1) Neutrophils (%) (Auto) % (45.0-75.0) Lymphocytes (%) (Auto) % (20.0-45.0) Monocytes (%) (Auto) % (1.0-10.0) Eosinophils (%) (Auto) % (0.0-3.0) Basophils (%) (Auto) % (0.0-2.0) Differential Total Cells Counted 100 Neutrophils % (Manual) 77 % (45-75) H Lymphocytes % (Manual) 12 % (20-45) L Monocytes % (Manual) 11 % (1-10) H Eosinophils % (Manual) 0 % (0-3) Basophils % (Manual) 0 % (0-2) Band Neutrophils 0 % (0-8) Platelet Estimate Decreased L Platelet Morphology Normal Hypochromasia 1+ Anisocytosis 1+ Macrocytosis 1+ Sodium Level 136 mEQ/L (135-145) Potassium Level 4.4 mEQ/L (3.4-4.9) Chloride Level 102 mEQ/L (98-107) Carbon Dioxide Level 24 mEQ/L (20-30) Anion Gap 10 (5-15) Blood Urea Nitrogen 23 mg/dL (7-23) Creatinine 0.8 mg/dL (0.7-1.2) Estimat Glomerular Filtration Rate > 60 mL/min (>60) Glucose Level 96 mg/dL (74-106) Calcium Level 8.1 mg/dL (8.6-10.2) L Total Bilirubin 2.1 mg/dL (0.0-1.2) H Direct Bilirubin 0.9 mg/dL (0.1-0.3) H Aspartate Amino Transf (AST/SGOT) 79 U/L (5-40) H Alanine Aminotransferase (ALT/SGPT) 36 U/L (3-41) Alkaline Phosphatase 106 U/L (40-129) Total Protein 5.8 g/dL (6.6-8.7) L Albumin 1.7 g/dL (3.5-5.2) L Globulin 4.1 g/dL Albumin/Globulin Ratio 0.4 (1.0-2.7) L General Appearance: no apparent distress, alert, other - periods of confusion Head: normocephalic EENT: PERRL/EOMI, normal ENT inspection Neck: supple Respiratory: normal breath sounds, no respiratory distress Cardiovascular: normal rate Gastrointestinal: normal inspection, non tender, soft Rectal: deferred Musculoskeletal: back normal Neurologic: alert Skin: normal color, no rash Lymphatic: normal inspection, no adenopathy Other Organ Systems BLE +1 edema Current Medications Current Medications Medications (Trade) Dose Ordered Sig/Carolynn Route PRN Reason Start Time Stop Time Status Last Admin Dose Admin Acetaminophen (Tylenol) 650 mg Q4H PRN ORAL Mild Pain/Temp > 100.5 09/07/16 10:00 10/07/16 09:59 Acetaminophen/ Hydrocodone Bitart ([place] 5/325) 1 tab Q4H PRN ORAL Moderate Pain (Pain Scale 4-6) 09/07/16 10:30 09/13/16 21:44 Calcium Carbonate ([place]) 500 mg BID ORAL 09/07/16 18:00 10/07/16 17:59 09/09/16 09:19 Escitalopram Oxalate (Lexapro) 20 mg DAILY ORAL 09/08/16 09:00 10/08/16 08:59 09/09/16 09:18 Ferrous Sulfate (Feosol) 325 mg TWICE A DAY ORAL 09/07/16 18:00 10/07/16 17:59 09/09/16 09:18 Hydromorphone HCl (Dilaudid) 1 mg Q4H PRN IVP Severe Pain (Pain Scale 7-10) 09/06/16 21:45 09/13/16 21:44 09/09/16 15:27 Lactulose (Cephulac) 10 gm TID ORAL 09/07/16 13:00 10/07/16 12:59 09/09/16 09:19 Olanzapine (ZyPREXA) 5 mg BEDTIME ORAL 09/07/16 21:00 10/07/16 20:59 09/08/16 21:11 Pantoprazole (Protonix) 40 mg BEFORE BREAKFAST ORAL 09/08/16 06:30 10/08/16 06:29 09/09/16 06:02 Propranolol HCl (Inderal) 20 mg FOUR TIMES A DAY ORAL 09/07/16 21:00 10/07/16 20:59 09/08/16 08:22 Rifaximin (Xifaxan) 550 mg TWICE A DAY ORAL 09/07/16 18:00 09/14/16 17:59 09/09/16 09:18 Spironolactone (Aldactone) 50 mg DAILY ORAL 09/08/16 09:00 10/08/16 08:59 09/09/16 09:18 GI: Plan Problems: (1) LFT elevation (2) History of alcoholism (3) Anemia (4) Acute hepatic encephalopathy (5) Elevated CEA Plan ok for surgical procedures per GI standpoint thrombocytopenia >> see hematology note ordered APCT to evaluate CEA elevated ammonia >> cont lactulose + Xifaxan cont propranolol, hold for SBP < 90. monitor H&H, transfuse prn ppi anemia work up fu hep panel fu iron panel fu labs outpatient colonoscopy to evaluate elevated CEA. Discussed with Dr. Seaman. Thank you for referring this patient, we will follow. THAI SEAMAN 09/13/16 0907: History of Present Illness General Reason for Hospitalization: Pain Present Illness Home Meds Reported Medications Hydromorphone HCl (Hydromorphone HCl) 1 Mg/1 Ml Syringe, 1 MG IVP Q4HR Y for Severe Pain (Pain Scale 7-10), MG 09/09/16 Hydromorphone Hcl (DILAUDID) 1 Mg/1 Ml Liquid, 1 MG PO, ML 09/09/16 Acetaminophen (Acetaminophen) 650 Mg/20.3 Ml Solution, 650 MG ORAL Q4HR Y for Mild Pain/Temp > 100.5, ML 0 Refills 09/09/16 Hydrocodone Bit/Acetaminophen 5-325* (NORCO 5-325 TABLET*) 1 Each Tablet, 1 TAB ORAL Q4H Y for Moderate Pain (Pain Scale 4-6), TAB 09/09/16 Lactulose (LACTULOSE) 10 Gm/15 Ml Solution, 10 GM PO TID 09/09/16 Rifaximin* (XIFAXAN*) 550 Mg Tablet, 550 MG ORAL TWICE A DAY for 30 Days, MG 0 Refills 09/09/16 Ferrous Sulfate (Ferrous Sulfate) 325 Mg Tablet, 1 TAB ORAL TWICE A DAY, #60 TAB 0 Refills 09/09/16 Calcium Carbonate (CALCIUM CARBONATE) 500 Mg Tablet, 500 MG PO BID, TAB 09/09/16 Propranolol HCl (Propranolol HCl) 20 Mg Tablet, 20 MG PO FOUR TIMES A DAY, TAB 09/09/16 Olanzapine* (ZYPREXA*) 5 Mg Tablet, 5 MG ORAL BEDTIME, TAB 09/09/16 Pantoprazole* (PROTONIX*) 40 Mg Tablet.dr, 40 MG ORAL BEFORE BREAKFAST, TAB 09/09/16 Escitalopram Oxalate* (LEXAPRO*) 20 Mg Tablet, 20 MG ORAL DAILY, TAB 09/09/16 Spironolact/Hydrochlorothiazid (ALDACTAZIDE 50-50 TABLET) 1 Each Tablet, 1 TAB ORAL DAILY, TAB 09/09/16 Pantoprazole (PANTOPRAZOLE) 20 Mg Tablet.dr, 20 MG ORAL DAILY, #10 TAB 0 Refills 09/09/16 Spironolact/Hydrochlorothiazid (SPIRONOLACTONE-HCTZ 25-25 TAB) 1 Each Tablet, 1 TAB ORAL DAILY, TAB 09/09/16 Calcium Carbonate (CALCIUM CARBONATE) 500 Mg Tablet, 500 MG PO BID, TAB 09/07/16 Acetaminophen* (ACETAMINOPHEN 325MG TABLET*) 325 Mg Tablet, 650 MG ORAL Q4H/PRN for mild pain/fever >101F 09/06/16 Sennosides (SENNA) 8.6 Mg Tablet, 8.6 MG PO 09/06/16 Na Phos,M-B/Na Phos,Di-Ba* (FLEET ENEMA*) 133 Ml Enema, 133 ML RECTAL PRN 09/06/16 Bisacodyl (DULCOLAX) 10 Mg Supp.rect, 10 MG RC PRN for if MOM not effective 09/06/16 Magnesium Hydroxide* (MILK OF MAGNESIA*) 400 Mg/5 Ml Oral.susp, 30 ML ORAL Daily /PRN 09/06/16 Docusate Sodium* (DOCUSATE SODIUM*) 100 Mg Capsule, 100 MG ORAL TWICE A DAY 09/06/16 Collagenase Clostridium Hist. (Santyl) 30 Gm Oint...g., 1 APPLIC TP Daily/PRN for L trochanter/surgical [id number] 09/06/16 Escitalopram Oxalate* (LEXAPRO*) 20 Mg Tablet, 20 MG ORAL DAILY 09/06/16 Olanzapine* (ZYPREXA*) 5 Mg Tablet, 5 MG ORAL BEDTIME 09/06/16 Pantoprazole* (PROTONIX*) 40 Mg Tablet.dr, 40 MG ORAL BEFORE BREAKFAST 09/06/16 Lactulose (LACTULOSE*) 20 Gm/30 Ml Solution, 15 ML ORAL for hold for LBM 09/06/16 Spironolactone* (ALDACTONE*) 50 Mg Tablet, 50 MG ORAL DAILY 09/06/16 Rifaximin* (XIFAXAN*) 550 Mg Tablet, 550 MG ORAL TWICE A DAY, 0 Refills 09/06/16 Ferrous Sulfate* (FERROUS SULFATE*) 325 Mg Tablet, 325 MG ORAL TWICE A DAY, 0 Refills 09/06/16 Discontinued Reported Medications Calcium Alginate (CALCIUM ALGINATE) 1 Gm Powder, 1 APPLIC TOPIC Daily/PRN for L trochanter/surgical [id number] 09/06/16 Aspirin* (ASPIRIN*) 81 Mg Tab.chew, 81 MG ORAL DAILY 09/06/16 Ergocalciferol (Vitamin D2)* (VITAMIN D*) 50,000 Unit Capsule, 84580 UNIT ORAL Friday/, CAP 09/06/16 Ergocalciferol (Vitamin D2)* (VITAMIN D*) 50,000 Unit Capsule, 28666 UNIT ORAL TWICE A WEEK Y for FRI AND 09/06/16 Doxycycline Hyclate* (VIBRAMYCIN*) 100 Mg Capsule, 100 MG ORAL EVERY 12 HOURS for x2 more days, 0 Refills 09/06/16 Calcium Carbonate (CALCIUM CARBONATE) 500 Mg Tablet, 500 MG PO 09/06/16 Gabapentin* (GABAPENTIN*) 100 Mg Capsule, 100 MG ORAL BID 09/06/16 Allergies: Coded Allergies: No Known Allergies (Unverified , 09/06/16) GI: Plan Plan The patient was seen and examined at bedside and all new and available data was reviewed in the patients chart. I agree with the above findings, impression and plan. (Patient seen earlier today. Signature stamp does not reflect patient encounter time.). -Martina Javier MDh Norris Lauren Sep 09, 2016 16:33 THAI SEAMAN Sep 13, 2016 09:07
--- NOTE | 2016-09-09 18:33 | General Progress Note ---
Assessment/Plan Assessment/Plan IMPRESSION: 1. Thrombocytopenia secondary to alcoholic liver cirrhosis. Is cleared for surgery, plt close to 100k as required and INR <2 2. Alcoholic liver cirrhosis. 3. Anemia of chronic disease. 4. 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 5. Acute left hip periprosthetic fracture- to be transferred for surgery. 6. History of alcohol abuse. 7. Dementia. 8. Psychosis. 9. Failure to thrive. RECOMMENDATIONS: 1. Watch counts, transfuse to hgb >7. 2. Watch coagulopathy. 3. Duplex bilateral lower extremities to rule out DVT- negative for DVT. 4. Vitamin K prior to surgery. 5. Platelet transfusion prior to surgery, prn. 6. Close followup. 7. To be transferred potentially. 8. Appreciate ortho recs. 9. Appreciate consultation! Subjective Constitutional: Reports: no symptoms HEENT: Reports: no symptoms Cardiovascular: Reports: no symptoms Respiratory: Reports: no symptoms Gastrointestinal/Abdominal: Reports: no symptoms Genitourinary: Reports: no symptoms Neurologic/Psychiatric: Reports: weakness Endocrine: Reports: no symptoms Hematologic/Lymphatic: Reports: anemia Allergies: Coded Allergies: No Known Allergies (Unverified , 09/06/16) Subjective pt received plt, awaits surgery Tues, potential to be transferred Objective Last 24 Hour Vital Signs Date Time Temp Pulse Resp B/P Pulse Ox O2 Delivery O2 Flow Rate FiO2 09/09/16 16:00 97.7 61 20 127/49 98 Room Air 09/09/16 11:54 96.8 60 20 102/62 94 Room Air 09/09/16 09:00 63 100/52 09/09/16 08:00 97.7 63 20 100/52 100 Room Air 09/09/16 06:00 97.9 64 20 112/54 96 Room Air 09/09/16 04:00 97.9 64 20 112/54 96 Room Air 09/09/16 01:38 98.4 71 20 113/58 95 Room Air 09/09/16 00:00 98.4 71 20 113/58 95 Room Air 09/08/16 21:00 54 113/46 09/08/16 19:34 98.8 54 20 113/46 94 Room Air Intake and Output 09/08/16 09/09/16 19:00 07:00 Intake Total 240 ml 120 ml Output Total 300 ml Balance -60 ml 120 ml Intake Oral 240 ml 120 ml Output Urine Total 300 ml # Voids 3 2 Laboratory Tests 09/09/16 05:55: White Blood Count 4.8#, Red Blood Count 3.00L, Hemoglobin 10.2L, Hematocrit 30.5L, Mean Corpuscular Volume 101H, Mean Corpuscular Hemoglobin 33.9H, Mean Corpuscular Hemoglobin Concent 33.4, Red Cell Distribution Width 14.5, Platelet Count 79L, Mean Platelet Volume 8.1, Neutrophils (%) (Auto) , Lymphocytes (%) ( Auto) , Monocytes (%) (Auto) , Eosinophils (%) (Auto) , Basophils (%) (Auto) , Differential Total Cells Counted 100, Neutrophils % (Manual) 77H, Lymphocytes % (Manual) 12L, Monocytes % (Manual) 11H, Eosinophils % (Manual) 0, Basophils % ( Manual) 0, Band Neutrophils 0, Platelet Estimate DecreasedL, Platelet Morphology Normal, Hypochromasia 1+, Anisocytosis 1+, Macrocytosis 1+, Sodium Level 136, Potassium Level 4.4, Chloride Level 102, Carbon Dioxide Level 24, Anion Gap 10, Blood Urea Nitrogen 23, Creatinine 0.8, Estimat Glomerular Filtration Rate > 60, Glucose Level 96, Calcium Level 8.1L, Total Bilirubin 2.1H , Direct Bilirubin 0.9H, Aspartate Amino Transf (AST/SGOT) 79H, Alanine Aminotransferase (ALT/SGPT) 36, Alkaline Phosphatase 106, Total Protein 5.8L, Albumin 1.7L, Globulin 4.1, Albumin/Globulin Ratio 0.4L Height (Feet): 6 Height (Inches): 1.00 Weight (Pounds): 202 General Appearance: no apparent distress EENT: PERRL/EOMI Neck: non-tender Cardiovascular: normal peripheral pulses Respiratory/Chest: chest wall non-tender Abdomen: normal bowel sounds Extremities: non-tender Edema: no edema noted Arm (L), no edema noted Arm (R), 1+ Leg (L), 1+ Leg (R) 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
--- NOTE | 2016-09-09 18:55 | Cardiology Progress Note ---
Assessment/Plan Assessment/Plan 1. Clear for orthopedic surgery, LVEF at 65%. 2. s/p fall with no associated syncope/pre-syncope. 3. Hx of HTN, well controlled, continue propranolol. 4. Hx of liver cirrhosis Subjective Subjective No cardiac events. Objective Last 24 Hour Vital Signs Date Time Temp Pulse Resp B/P Pulse Ox O2 Delivery O2 Flow Rate FiO2 09/09/16 16:00 97.7 61 20 127/49 98 Room Air 09/09/16 11:54 96.8 60 20 102/62 94 Room Air 09/09/16 09:00 63 100/52 09/09/16 08:00 97.7 63 20 100/52 100 Room Air 09/09/16 06:00 97.9 64 20 112/54 96 Room Air 09/09/16 04:00 97.9 64 20 112/54 96 Room Air 09/09/16 01:38 98.4 71 20 113/58 95 Room Air 09/09/16 00:00 98.4 71 20 113/58 95 Room Air 09/08/16 21:00 54 113/46 09/08/16 19:34 98.8 54 20 113/46 94 Room Air Intake and Output 09/08/16 09/09/16 19:00 07:00 Intake Total 240 ml 120 ml Output Total 300 ml Balance -60 ml 120 ml Intake Oral 240 ml 120 ml Output Urine Total 300 ml # Voids 3 2 2D Echo: LVEF 65%, Mild LVH, Grade I LVDD, Mod MR, RVSP 29 mmHg Laboratory Tests Test 09/09/16 05:55 White Blood Count 4.8 K/UL (4.8-10.8) # Red Blood Count 3.00 M/UL (4.70-6.10) L Hemoglobin 10.2 G/DL (14.2-18.0) L Hematocrit 30.5 % (42.0-52.0) L Mean Corpuscular Volume 101 FL (80-99) H Mean Corpuscular Hemoglobin 33.9 PG (27.0-31.0) H Mean Corpuscular Hemoglobin Concent 33.4 G/DL (32.0-36.0) Red Cell Distribution Width 14.5 % (11.6-14.8) Platelet Count 79 K/UL (150-450) L Mean Platelet Volume 8.1 FL (6.5-10.1) Neutrophils (%) (Auto) % (45.0-75.0) Lymphocytes (%) (Auto) % (20.0-45.0) Monocytes (%) (Auto) % (1.0-10.0) Eosinophils (%) (Auto) % (0.0-3.0) Basophils (%) (Auto) % (0.0-2.0) Differential Total Cells Counted 100 Neutrophils % (Manual) 77 % (45-75) H Lymphocytes % (Manual) 12 % (20-45) L Monocytes % (Manual) 11 % (1-10) H Eosinophils % (Manual) 0 % (0-3) Basophils % (Manual) 0 % (0-2) Band Neutrophils 0 % (0-8) Platelet Estimate Decreased L Platelet Morphology Normal Hypochromasia 1+ Anisocytosis 1+ Macrocytosis 1+ Sodium Level 136 mEQ/L (135-145) Potassium Level 4.4 mEQ/L (3.4-4.9) Chloride Level 102 mEQ/L (98-107) Carbon Dioxide Level 24 mEQ/L (20-30) Anion Gap 10 (5-15) Blood Urea Nitrogen 23 mg/dL (7-23) Creatinine 0.8 mg/dL (0.7-1.2) Estimat Glomerular Filtration Rate > 60 mL/min (>60) Glucose Level 96 mg/dL (74-106) Calcium Level 8.1 mg/dL (8.6-10.2) L Total Bilirubin 2.1 mg/dL (0.0-1.2) H Direct Bilirubin 0.9 mg/dL (0.1-0.3) H Aspartate Amino Transf (AST/SGOT) 79 U/L (5-40) H Alanine Aminotransferase (ALT/SGPT) 36 U/L (3-41) Alkaline Phosphatase 106 U/L (40-129) Total Protein 5.8 g/dL (6.6-8.7) L Albumin 1.7 g/dL (3.5-5.2) L Globulin 4.1 g/dL Albumin/Globulin Ratio 0.4 (1.0-2.7) L Microbiology Date/Time Source Procedure Growth Status 09/06/16 19:55 Nasal Nares MRSA Culture - Final NO METHICILLIN RESISTANT STAPH AUREUS... Complete 09/06/16 19:55 Rectum VRE Culture - Final Enterococcus Faecium - Vre Complete Objective HEENT: Atraumatic, normocephalic, PERRLA, EOMI Neck: Negative JVD, no carotid bruit, upstroke 2+ B/L Respiratory: normal inspection, lungs clear, normal breath sounds Cardiovascular: Normal S1 S2, regular rate, rhythm, 2/6 HSM at the apex, no gallops or rubs Gastrointestinal: normal inspection, normal bowel sounds, non tender, soft, no guarding Musculoskeletal: no edema, clubbing or cyanosis, decreased range of motion - left hip ASHLEY URIBE Sep 09, 2016 18:55
[2016-09-09] MEDS ORDERED: SPIRONOLACTONE1 EACH ORAL (20:41)
[2016-09-09] MEDS ORDERED: PANTOPRAZOLE SO20 MG ORAL (20:42)
[2016-09-09] MEDS ORDERED: ALDACTAZIDE 501 EACH ORAL (20:43)
[2016-09-09] MEDS ORDERED: PROTONIX40 MG ORAL (20:44)
[2016-09-09] MEDS ORDERED: LEXAPRO20 MG ORAL (20:44)
[2016-09-09] MEDS ORDERED: ZYPREXA5 MG ORAL (20:45)
[2016-09-09] MEDS ORDERED: INDERAL20 MG PO (20:46)
[2016-09-09] MEDS ORDERED: CALCIUM CARBON500 M1 PO (20:47)
[2016-09-09] MEDS ORDERED: FEOSOL1 TAB ORAL (20:48)
[2016-09-09] MEDS ORDERED: LACTULOSE10 GM/153 PO (20:49)
[2016-09-09] MEDS ORDERED: XIFAXAN550 MG ORAL (20:49)
[2016-09-09] MEDS ORDERED: TYLENOL650 MG/20. ORAL (20:50)
[2016-09-09] MEDS ORDERED: NORCO 5-325 TA1 EAC1 ORAL (20:50)
[2016-09-09] MEDS ORDERED: DILAUDID1 MG/1 ML PO (20:52)
[2016-09-09] MEDS ORDERED: DILAUDID1 MG/M1 IVP (20:52)
[2016-09-09] MEDS ORDERED: NS 275ml ONE (21:49)
--- NOTE | 2016-09-10 12:03 | Discharge Summary ---
Discharge Summary Hospital Course Date of Admission Sep 06, 2016 at 19:48 Date of Discharge Sep 09, 2016 at 21:50 Admitting Diagnosis periprosthetic fracture HPI Channing Freed is a 66 year old male who was admitted on Sep 06, 2016 at 19:48 for Periprosthetic Fracture Hospital Course dc summary #[id number] Discharge Medications Continued Medications: Acetaminophen* (Acetaminophen 325MG Tablet*) 325 Mg Tablet 650 MG ORAL Q4H/PRN for mild pain/fever >101F Calcium Carbonate (Calcium Carbonate) 500 Mg Tablet 500 MG PO BID, TAB Escitalopram Oxalate* (Lexapro*) 20 Mg Tablet 20 MG ORAL DAILY Ferrous Sulfate* (Ferrous Sulfate*) 325 Mg Tablet 325 MG ORAL TWICE A DAY, 0 Refills Hydrocodone Bit/Acetaminophen 5-325* ([place] 5-325 Tablet*) 1 Each Tablet 1 TAB ORAL Q4H PRN for Moderate Pain (Pain Scale 4-6), TAB Hydromorphone HCl (Hydromorphone HCl) 1 Mg/1 Ml Syringe 1 MG IVP Q4HR PRN for Severe Pain (Pain Scale 7-10), MG Lactulose (Lactulose*) 20 Gm/30 Ml Solution 15 ML ORAL for hold for LBM Olanzapine* (Zyprexa*) 5 Mg Tablet 5 MG ORAL BEDTIME Pantoprazole* (Protonix*) 40 Mg Tablet.dr 40 MG ORAL BEFORE BREAKFAST Propranolol HCl (Propranolol HCl) 20 Mg Tablet 20 MG PO FOUR TIMES A DAY, TAB Rifaximin* (Xifaxan*) 550 Mg Tablet 550 MG ORAL TWICE A DAY, 0 Refills Spironolactone* (Aldactone*) 50 Mg Tablet 50 MG ORAL DAILY Discharge Condition Upon Discharge: stable Discharge Disposition Patient was discharged to [facility] for surgery Discharge Diagnoses: Discharge Instructions Discharge Instructions Special Instructions I have been assigned to complete a D/C Summary on this account. I was not involved in the patient management Yesenia Bailey NP ([place]te[place]) Sep 10, 2016 12:03
--- NOTE | 2016-09-11 00:28 | Cardiology Report ---
APPROVED REPORT EKG Measurement Heart [id number] IN [id number] Normal sinus rhythm T wave abnormality, consider inferior ischemia Abnormal ECG
--- NOTE | 2016-09-11 04:18 | Discharge Summary 2 SIG ---
DATE OF ADMISSION: 09/06/2016 DATE OF DISCHARGE: 09/09/2016 REASON FOR ADMISSION: 66-year-old male was sent from the longterm facility after a mechanical fall that he sustained recently. The patient had a recent left hip hemiarthroplasty. The patient noted after fall to have increased pain in the left hip. Prior to fall, the patient was ambulatory with assistance. The patient denied any head injury, any loss of consciousness, or blackouts. No dizziness. He denied chest pain, shortness of breath, or palpitations. No fever. No chills. Workup in the emergency room revealed left intertrochanteric femur fracture. The patient's laboratory work revealed elevated transaminase, coagulopathy, INR 1.6. No leukocytosis. Mild anemia and thrombocytopenia with platelets of 65,000. The patient admitted for further management. ADMITTING DIAGNOSES: 1. Status post mechanical fall. 2. Periprosthetic left femur fracture. 3. Left hip pain. 4. Alcoholic liver cirrhosis. 5. Dementia. HOSPITAL STAY: The patient was admitted. The patient with a history of alcoholic liver cirrhosis. GI and Hematology along with ortho surgery consults were requested. Orthopedic surgeon had seen the patient and had discussion with his sister who was involved in care of the patient. Decision was made to proceed with the surgery in the morning. Risks, limitations, expectations, and complications were discussed in detail by surgeon, all the questions were addressed. At the same time, the patient was seen by Cardiology, GI, and Hematology to clear the patient for surgery. As per GI note, the patient noted to have alcoholic liver cirrhosis along with elevated transaminase and albumin. Vitamin K was given for coagulability. The patient with a history of alcohol abuse and subsequent alcoholic liver cirrhosis. Recommended to start the patient on PPI. Anemia workup revealed anemia of chronic disease. The patient with elevated ammonia - 63. The patient was on rifaximin and lactulose. The patient noted to have elevated tumor markers with alpha-fetoprotein - 13.2 and CEA- 9.5, normal PSA. Hepatitis panel was positive for hepatitis C antibody. GI recommended outpatient colonoscopy. GI cleared the patient for surgery. Name Plate Stamping Machine Operator had seen and evaluated the patient and cleared the patient for surgery as well. Per Hematology, thrombocytopenia was likely related to alcoholic liver cirrhosis. Platelets were trending up. INR below 2. Venous duplex bilateral lower extremities was negative for DVT. He recommended to watch counts and transfuse as needed to keep hemoglobin above 7. Recommended another vitamin K prior to surgery and watch for coagulability. Launch Manager had seen the patient and cleared the patient for orthopedic surgery. Ejection fraction 65%. Fall was mechanical. No associated syncope or presyncope. Blood pressure, well controlled. Continue propranolol. For DVT prophylaxis, SCDs were used. No aspirin. No heparin. Family later decided to transfer the patient to [facility] for surgery. Transfer was arranged, and the patient was transferred to [facility] for surgery. DISCHARGE DIAGNOSES: 1. Status post mechanical fall. 2. Left periprosthetic femoral fracture. 3. Alcoholic liver cirrhosis. 4. Elevated transaminase. 5. 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 6. Elevated tumor markers (CEA, AFP/alpha-fetoprotein). 7. Acute hepatic encephalopathy. 8. Hypertension. 9. Dementia. 10. Psychosis. 11. History of hemiarthroplasty, left hip, recent. 12. Hepatitis C. 13. History of alcohol abuse. 14. Anemia of chronic disease. 15. Thrombocytopenia, secondary to alcohol abuse. DISCHARGE MEDICATIONS: See medication reconciliation list. DISCHARGE INSTRUCTIONS: The patient was transferred to [facility] for surgery. Shanita Oden M.D. I have been assigned to dictate discharge summary on this account and I was not involved in the patient's management. Yesenia ScanlonBatavia Veterans Administration Hospitaltho [facility].P. DR: GABRIEL JOB#: [id number] CC: LEATHA
--- NOTE | 2016-09-11 11:36 | Cardiology Report ---
APPROVED REPORT EXAM: Two-dimensional and M-mode echocardiogram with Doppler and color Doppler. INDICATION Pre-Op M-Mode DIMENSIONS IVSd0.6 (0.7-1.1cm)Left Atrium (MM)3.5 (1.6-4.0cm) LVDd5.7 (3.5-5.6cm)Aortic Root2.9 (2.0-3.7cm) PWd1.0 (0.7-1.1cm)Aortic Cusp Exc.1.6 (1.5-2.0cm) LVDs3.4 (2.5-4.0cm) PWs0.9 cm Normal left ventricular chamber size, systolic function and wall motion. Left ventricular ejection fraction estimated to be 60-65%. Mild left ventricular hypertrophy. No evidence of pericardial fat or effusion. Right cardiac chamber sizes are within normal limits. Mild left atrial enlargement by 2D. Focal aortic valve sclerosis with adequate cusp excursion Thickened mitral valve leaflets with normal excursion. Mitral annulus and aortic root calcification. Pulmonic valve not well visualized. Normal tricuspid valve structure. IVC not obtainable due to patients position. A color flow and spectral Doppler study was performed and revealed: No aortic regurgitation. Moderate mitral regurgitation. Left ventricular diastolic dysfunction grade 1. Moderate tricuspid regurgitation. Tricuspid systolic velocities suggests peak right ventricular systolic pressure of 29 mmHg
--- NOTE | 2016-09-13 08:29 | Diagnostic Imaging Report ---
APPROVED REPORT CPT Code: 44923 BILATERAL: Imaging reveals a patent deep venous system bilaterally. There is no evidence of thrombus within the femoral, popliteal or tibial segments. The greater saphenous veins are also within normal limits. Doppler indicates normal spontaneous flow within these segments.
== END 2016-09-09 21:50 | disposition short-term general hospital (02) | DRG 536 ==
LOC: EDBD 17:00 → EMR 17:32 → 4E 19:48 → EDBEDREQ 21:46
PROC: 30233R1 Transfusion of Nonautologous Platelets into Peripheral Vein, Percutaneous Approach (ICD-10-PCS; principal; 2016-09-09)
DX: S72.142A Displaced intertrochanteric fracture of left femur, initial encounter for closed fracture (principal); D68.4 Acquired coagulation factor deficiency; F03.90 Unspecified dementia, unspecified severity, without behavioral disturbance, psychotic disturbance, mood disturbance, and anxiety; K70.30 Alcoholic cirrhosis of liver without ascites; D69.59 Other secondary thrombocytopenia; D50.9 Iron deficiency anemia, unspecified; I10 Essential (primary) hypertension; F10.21 Alcohol dependence, in remission; M97.02XA Periprosthetic fracture around internal prosthetic left hip joint, initial encounter; W19.XXXA Unspecified fall, initial encounter; Y92.129 Unspecified place in nursing home as the place of occurrence of the external cause; R97.0 Elevated carcinoembryonic antigen [CEA]; K72.90 Hepatic failure, unspecified without coma; B19.20 Unspecified viral hepatitis C without hepatic coma; D63.8 Anemia in other chronic diseases classified elsewhere; F29 Unspecified psychosis not due to a substance or known physiological condition
CPT/HCPCS: 36415; 71010; 72170; 72192; 80053; 80061; 82105; 82140; 82248; 82378; 83036; 84153; 84443; 85007; 85025; 85610; 85730; 86703; 86705; 86709; 86803; 86850; 86900; 86901; 87081; 87340; 93005; 93306; 93970; J3430

== ENCOUNTER 2016-09-23 22:45 | Inpatient (IN) | payer MEDICARE ==
[~2016-09-23] VITALS: Ht 188 cm; Wt 105.2 kg
[~2016-09-23 22:45] MED LIST: ACETAMINOPHEN325 M1 ORAL; ALDACTAZIDE 501 EACH ORAL; ASPIRIN81 MG ORAL; CALCIUM ALGINATE1 GM TOPIC; CALCIUM CARBON500 M1 PO; DILAUDID1 MG/1 ML PO; DILAUDID1 MG/M1 IVP; DOCUSATE SODIU100 MG ORAL; DULCOLAX10 MG RC; FEOSOL1 TAB ORAL; FERROUS SULFAT325 MG ORAL; FLEET ENEMA133 ML RECTAL; GABAPENTIN100 MG ORAL; INDERAL20 MG PO; LACTULOSE10 GM/153 PO; LACTULOSE20 GM/301 ORAL; LEXAPRO20 MG ORAL; MILK OF MA400 MG/51 ORAL; NORCO 5-325 TA1 EAC1 ORAL; PANTOPRAZOLE SO20 MG ORAL; PROTONIX40 MG ORAL; SANTYL30 GM TP; SENNA8.6 M2 PO; SPIRONOLACTONE1 EACH ORAL; SPIRONOLACTONE50 MG ORAL; TYLENOL650 MG/20. ORAL; VIBRAMYCIN100 MG ORAL; VITAMIN D250000 UNI1 ORAL; XIFAXAN550 MG ORAL; ZYPREXA5 MG ORAL
[2016-09-23 23:00] VITALS: BP 126/72
[2016-09-24] VITALS (8 sets, daily range): BP systolic 111–145; BP diastolic 63–86
[2016-09-24] LABS: APPEARANCE,URINE SLIGHTLY CLOUDY; KETONES,URINE NEGATIVE (NEGATIVE); LEUKOCYTE ESTERASE ,URINE 2+ (NEGATIVE); NITRITE,URINE NEGATIVE (NEGATIVE); PH,URINE 6 (4.5-8.0); PROTEIN,URINE 2+ (NEGATIVE); UROBILINOGEN,URINE 4 MG/DL (0.0-1.0)
[2016-09-24 00:10] LABS: CALCIUM 8.4 mg/dL (8.6-10.2); CREATININE 1.7 mg/dL (0.7-1.2); GLOMERULAR FILTRATION RATE 49.3 mL/min (>60); POTASSIUM 5.1 mEQ/L (3.4-4.9)
[2016-09-24 00:12] LABS: INR 2.7 (0.9-1.1); PROTHROMBIN TIME 28.1 SEC (9.30-11.50)
[2016-09-24 00:14] LABS: MEAN CORPUSCULAR HEMOGLOBIN 34.6 PG (27.0-31.0); MEAN CORPUSCULAR HGB CONC 33.3 G/DL (32.0-36.0); MEAN CORPUSCULAR VOLUME 104 FL (80-99); PLATELET COUNT 80 K/UL (150-450); RED CELL DISTRIBUTION WIDTH 19.7 % (11.6-14.8); WHITE BLOOD COUNT 9.9 K/UL (4.8-10.8)
[2016-09-24 00:30] LABS: AMORPHOUS SEDIMENT,UR MODERATE /LPF; BACTERIA,URINE FEW /HPF; FINE GRANULAR CASTS,URINE 0-2 /LPF; RBC,URINE TNTC /HPF (0 - 0)
[2016-09-24 00:32] LABS: ICTOTEST NEGATIVE
--- NOTE | 2016-09-24 01:32 | Emergency Room Report ---
History of Present Illness General Chief Complaint: Abnormal Labs Source: Medical Record, EMS Present Illness HPI Is a 66-year-old male with multiple medical problem. He resides in a intermediate. He presents with chief complaint of abnormal lab with low hemoglobin. No active bleeding. This has no complaint. No fever or chills. No chest pain. Allergies: Coded Allergies: No Known Allergies (Unverified , 09/06/16) Patient History Past Medical History: see triage record, old chart reviewed Past Surgical History: other Pertinent Family History: none Social History: Denies: drug use Immunizations: other Reviewed Nursing Documentation: PMH: Agreed, PSxH: Agreed Nursing Documentation-PMH Hx Cardiac Problems: No Hx Hypertension: Yes Review of Systems Eye: Denies: blurred vision, eye pain ENT: Denies: ear pain, nose congestion, throat swelling Respiratory: Denies: cough, shortness of breath Cardiovascular: Denies: chest pain, palpitations Gastrointestinal: Denies: abdominal pain, diarrhea, nausea, vomiting Musculoskeletal: Denies: back pain, joint pain Skin: Denies: rash Neurological: Denies: headache, numbness Endocrine: Denies: increased thirst, increased urine Hematologic/Lymphatic: Denies: easy bruising All Other Systems: negative except mentioned in HPI Physical Exam Vital Signs Date Time Temp Pulse Resp B/P Pulse Ox O2 Delivery O2 Flow Rate FiO2 09/23/16 22:45 98.2 89 18 116/54 98 Room Air vitals unremarkable Sp02 EP Interpretation: reviewed, normal General Appearance: well appearing, no apparent distress, alert Head: normocephalic, atraumatic Eyes: bilateral eye EOMI, bilateral eye PERRL ENT: hearing grossly normal, normal pharynx Neck: full range of motion, supple, no meningismus Respiratory: chest non-tender, lungs clear, normal breath sounds Cardiovascular #1: regular rate, rhythm, no murmur Gastrointestinal: normal bowel sounds, non tender, no mass, no organomegaly, no bruit, non-distended Musculoskeletal: back normal, normal range of motion Neurologic: alert, grossly normal Psychiatric: mood/affect normal Skin: warm/dry Medical Decision Making Diagnostic Impression: Primary Impression: Anemia Qualified Codes: D64.9 - Anemia, unspecified Additional Impressions: Proteinuria Qualified Codes: R80.9 - Proteinuria, unspecified Dehydration EDITH (acute kidney injury) ER Course Patient with anemia. No evidence of acute bleeding. This may be a chronic issue. Will admit for serial H&H and possible transfusion. Lab Results Impression last with low hemoglobin 7.6 Rhythm Strip Diag. Results EP Interpretation: yes Rate: 87 Rhythm: NSR, no PVC's, no ectopy Last Vital Signs Date Time Temp Pulse Resp B/P Pulse Ox O2 Delivery O2 Flow Rate FiO2 09/24/16 00:46 98.2 88 16 116/86 99 Room Air Status: improved Disposition: ADMITTED INPATIENT Condition: Serious Referrals: Shanita Oden MD (PCP) NOAH COLLIER M.D. September 24, 2016 01:32
[2016-09-24] MEDS ORDERED: ASPIR 8181 MG ORAL (02:15)
[2016-09-24] MEDS ORDERED: VITAMIN D400 INTLU ORAL (02:18)
[2016-09-24] MEDS ORDERED: ZINC50 M2 ORAL (02:18)
[2016-09-24] MEDS ORDERED: VITAMIN C500 M1 ORAL (02:18)
[2016-09-24] MEDS ORDERED: ZINC50 M1 ORAL (02:18)
[2016-09-24] MEDS ORDERED: Norco 5mg/325mg tab ORAL PRN (05:00)
[2016-09-24] MEDS ORDERED: Milk of Magnesia 30ml Ud ORAL PRN (05:00)
[2016-09-24] MEDS: Aspirin EC 81mg tab ORAL SCH (09:08)
[2016-09-24] MEDS: Ascorbic Acid 500mg tab ORAL SCH (09:08)
[2016-09-24] MEDS: Rifaximin 550mg tab ORAL SCH ×2 (09:08→19:00)
[2016-09-24] MEDS: Docusate 100mg cap ORAL SCH ×2 (09:08→19:00)
--- NOTE | 2016-09-24 10:15 | History & Physical ---
History and Physical History & Physicial patient is seen and examined. Dictation is completed. Shanita Oden MD September 24, 2016 10:15
--- NOTE | 2016-09-24 10:19 | General Progress Note ---
Assessment/Plan Status: stable Assessment/Plan 1- Acute Anemia 2- Bleeding diathesis- hypercoagulation state 3- Alcoholic cirhosis 4- left Hip fracture, s/p sx times two 5- Dementia 6- Abn Cr level Plan: GI Hemonch Nephro Ortho services are consulted Subjective Allergies: Coded Allergies: No Known Allergies (Unverified , 09/06/16) Objective Last 24 Hour Vital Signs Date Time Temp Pulse Resp B/P Pulse Ox O2 Delivery O2 Flow Rate FiO2 09/24/16 07:40 98.1 83 20 111/77 98 Room Air 09/24/16 04:00 97.3 18 124/85 Nasal Cannula 09/24/16 02:46 98.2 87 16 115/63 98 Room Air 09/24/16 02:40 98.2 87 16 115/63 98 Room Air 09/24/16 00:46 98.2 88 16 116/86 99 Room Air 09/23/16 23:00 98.2 87 18 126/72 99 Room Air 09/23/16 22:45 98.2 89 18 116/54 98 Room Air Intake and Output 09/23/16 09/24/16 19:00 07:00 Output Total 200 ml Balance -200 ml Output Urine Total 200 ml # Voids 3 Laboratory Tests 09/23/16 23:16: White Blood Count 9.9, Red Blood Count 2.20L, Hemoglobin 7.6L, Hematocrit 22.9L , Mean Corpuscular Volume 104H, Mean Corpuscular Hemoglobin 34.6H, Mean Corpuscular Hemoglobin Concent 33.3, Red Cell Distribution Width 19.7H, Platelet Count 80L, Mean Platelet Volume 7.0, Neutrophils (%) (Auto) , Lymphocytes (%) (Auto) , Monocytes (%) (Auto) , Eosinophils (%) (Auto) , Basophils (%) (Auto) , Prothrombin Time 28.1H, Prothromb Time International Ratio 2.7H, Activated Partial Thromboplast Time 47H, Sodium Level 133L, Potassium Level 5.1H, Chloride Level 99, Carbon Dioxide Level 21, Anion Gap 13, Blood Urea Nitrogen 42H, Creatinine 1.7H, Estimat Glomerular Filtration Rate 49.3, Glucose Level 123H, Calcium Level 8.4L 09/23/16 23:26: Urine Color Yellow, Urine Appearance Slightly cloudy, Urine pH 6, Urine Specific [place] 1.015, Urine Protein 2+H, Urine Glucose (UA) Negative, Urine Ketones Negative, Urine Occult Blood 5+H, Urine Nitrite Negative, Urine Bilirubin 1+H, Urine Ictotest Negative, Urine Urobilinogen 4H, Urine Leukocyte Esterase 2+H, Urine RBC TntcH, Urine WBC 2-4, Urine Squamous Epithelial Cells None, Urine Amorphous Sediment ModerateH, Urine Bacteria Few, Urine Fine Granular Casts 0-2H Height (Feet): 6 Height (Inches): 2.00 Weight (Pounds): 232 Shanita Oden MD September 24, 2016 10:19
--- NOTE | 2016-09-24 10:23 | General Progress Note ---
Assessment/Plan Assessment/Plan 1- Acute Anemia 2- Bleeding diathesis- hypercoagulation state 3- Alcoholic cirhosis 4- left Hip fracture, s/p sx times two 5- Dementia 6- Abn Cr level Plan: GI Hemonch Nephro Ortho services are consulted Subjective ROS Limited/Unobtainable: Yes - significant dementia Allergies: Coded Allergies: No Known Allergies (Unverified , 09/06/16) Objective Last 24 Hour Vital Signs Date Time Temp Pulse Resp B/P Pulse Ox O2 Delivery O2 Flow Rate FiO2 09/24/16 07:40 98.1 83 20 111/77 98 Room Air 09/24/16 04:00 97.3 18 124/85 Nasal Cannula 09/24/16 02:46 98.2 87 16 115/63 98 Room Air 09/24/16 02:40 98.2 87 16 115/63 98 Room Air 09/24/16 00:46 98.2 88 16 116/86 99 Room Air 09/23/16 23:00 98.2 87 18 126/72 99 Room Air 09/23/16 22:45 98.2 89 18 116/54 98 Room Air Intake and Output 09/23/16 09/24/16 19:00 07:00 Output Total 200 ml Balance -200 ml Output Urine Total 200 ml # Voids 3 Laboratory Tests 09/23/16 23:16: White Blood Count 9.9, Red Blood Count 2.20L, Hemoglobin 7.6L, Hematocrit 22.9L , Mean Corpuscular Volume 104H, Mean Corpuscular Hemoglobin 34.6H, Mean Corpuscular Hemoglobin Concent 33.3, Red Cell Distribution Width 19.7H, Platelet Count 80L, Mean Platelet Volume 7.0, Neutrophils (%) (Auto) , Lymphocytes (%) (Auto) , Monocytes (%) (Auto) , Eosinophils (%) (Auto) , Basophils (%) (Auto) , Prothrombin Time 28.1H, Prothromb Time International Ratio 2.7H, Activated Partial Thromboplast Time 47H, Sodium Level 133L, Potassium Level 5.1H, Chloride Level 99, Carbon Dioxide Level 21, Anion Gap 13, Blood Urea Nitrogen 42H, Creatinine 1.7H, Estimat Glomerular Filtration Rate 49.3, Glucose Level 123H, Calcium Level 8.4L 09/23/16 23:26: Urine Color Yellow, Urine Appearance Slightly cloudy, Urine pH 6, Urine Specific [place] 1.015, Urine Protein 2+H, Urine Glucose (UA) Negative, Urine Ketones Negative, Urine Occult Blood 5+H, Urine Nitrite Negative, Urine Bilirubin 1+H, Urine Ictotest Negative, Urine Urobilinogen 4H, Urine Leukocyte Esterase 2+H, Urine RBC TntcH, Urine WBC 2-4, Urine Squamous Epithelial Cells None, Urine Amorphous Sediment ModerateH, Urine Bacteria Few, Urine Fine Granular Casts 0-2H Height (Feet): 6 Height (Inches): 2.00 Weight (Pounds): 232 General Appearance: no apparent distress EENT: PERRL/EOMI Neck: supple Cardiovascular: normal rate Respiratory/Chest: lungs clear Abdomen: distended Extremities: non-tender, other - minimal blood oozing from left hip area, Edema: 2+ Leg (L), 2+ Leg (R), 2+ Pedal (L), 2+ Pedal (R) Neurologic: other - demented Shanita Oden MD September 24, 2016 10:23
[2016-09-24 10:44] LABS: HEMOLYSIS 7; IRON 50 ug/dL (59-158); TOTAL IRON BINDING CAPACITY 120 ug/dL (250-400)
[2016-09-24] MEDS: HYDROmorphone 1mg/ml Carpuject IVP PRN (11:00)
[2016-09-24] MEDS ORDERED: Phytonadione 1 MG in D5W 55 ML IVPB ONE (11:30)
[2016-09-24] MEDS: Calcium Carbonate 1250mg/5ml Liquid ud ORAL SCH ×2 (12:17→19:00)
--- NOTE | 2016-09-24 15:00 | GI Initial Consult Note ---
Bren Palacios N.P. 09/24/16 1500: History of Present Illness General Date patient seen: September 24, 2016 Time patient seen: 14:49 Reason for Hospitalization: Abnormal Labs Referring physician: KEVIN Reason for Consultation: ANEMIA Present Illness HPI Is a 66-year-old male with multiple medical problem. He resides in a [facility]pc. He presents with chief complaint of abnormal lab with low hemoglobin. No active bleeding. This has no complaint. No fever or chills. No chest pain. GI CONSULT: HPI noted above. GI consulted for anemia. Pt seen on floor, awake and alert NAD. He presents today with low Hgb ~ 7.6, baseline approximately 10 from previous admission. Pt was seen a few weeks prior admitted for MIKI revision. He has history of liver cirrhosis presents today with abdominal distention 2/2 ascites and BLE +2 edema. Iron panel unremarkable. During the last admission, we recommended outpatient colonoscopy to evaluate anemia and elevated CEA in which we will proceed this admission. Home Meds Reported Medications Zinc (ZINC) 50 Mg Tablet, 50 MG ORAL DAILY, TAB 09/24/16 Zinc Amino Acid Chelate (ZINC) 50 Mg Tablet, 50 MG ORAL, TAB 09/24/16 Vitamin D (Vitamin D3) 400 Unit Tablet, 31674 UNITS ORAL, TAB 09/24/16 Ascorbic Acid* (VITAMIN C*) 500 Mg Tablet, 500 MG ORAL DAILY, #30 TAB 0 Refills 09/24/16 Aspirin* (ASPIR 81*) 81 Mg Tablet.dr, 81 MG ORAL DAILY, TAB 09/24/16 Hydromorphone HCl (Hydromorphone HCl) 1 Mg/1 Ml Syringe, 1 MG IVP Q4HR Y for Severe Pain (Pain Scale 7-10), MG 09/09/16 Hydromorphone Hcl (DILAUDID) 1 Mg/1 Ml Liquid, 1 MG PO, ML 09/09/16 Acetaminophen (Acetaminophen) 650 Mg/20.3 Ml Solution, 650 MG ORAL Q4HR Y for Mild Pain/Temp > 100.5, ML 0 Refills 09/09/16 Hydrocodone Bit/Acetaminophen 5-325* (NORCO 5-325 TABLET*) 1 Each Tablet, 1 TAB ORAL Q4H Y for Moderate Pain (Pain Scale 4-6), TAB 09/09/16 Lactulose (LACTULOSE) 10 Gm/15 Ml Solution, 10 GM PO TID 09/09/16 Rifaximin* (XIFAXAN*) 550 Mg Tablet, 550 MG ORAL TWICE A DAY for 30 Days, MG 0 Refills 09/09/16 Ferrous Sulfate (Ferrous Sulfate) 325 Mg Tablet, 1 TAB ORAL TWICE A DAY, #60 TAB 0 Refills 09/09/16 Calcium Carbonate (CALCIUM CARBONATE) 500 Mg Tablet, 500 MG PO BID, TAB 09/09/16 Propranolol HCl (Propranolol HCl) 20 Mg Tablet, 20 MG PO FOUR TIMES A DAY, TAB 09/09/16 Olanzapine* (ZYPREXA*) 5 Mg Tablet, 5 MG ORAL BEDTIME, TAB 09/09/16 Pantoprazole* (PROTONIX*) 40 Mg Tablet.dr, 40 MG ORAL BEFORE BREAKFAST, TAB 09/09/16 Escitalopram Oxalate* (LEXAPRO*) 20 Mg Tablet, 20 MG ORAL DAILY, TAB 09/09/16 Spironolact/Hydrochlorothiazid (ALDACTAZIDE 50-50 TABLET) 1 Each Tablet, 1 TAB ORAL DAILY, TAB 09/09/16 Pantoprazole (PANTOPRAZOLE) 20 Mg Tablet.dr, 20 MG ORAL DAILY, #10 TAB 0 Refills 09/09/16 Spironolact/Hydrochlorothiazid (SPIRONOLACTONE-HCTZ 25-25 TAB) 1 Each Tablet, 1 TAB ORAL DAILY, TAB 09/09/16 Calcium Carbonate (CALCIUM CARBONATE) 500 Mg Tablet, 500 MG PO BID, TAB 09/07/16 Acetaminophen* (ACETAMINOPHEN 325MG TABLET*) 325 Mg Tablet, 650 MG ORAL Q4H/PRN for mild pain/fever >101F 09/06/16 Sennosides (SENNA) 8.6 Mg Tablet, 8.6 MG PO 09/06/16 Na Phos,M-B/Na Phos,Di-Ba* (FLEET ENEMA*) 133 Ml Enema, 133 ML RECTAL PRN 09/06/16 Bisacodyl (DULCOLAX) 10 Mg Supp.rect, 10 MG RC PRN for if MOM not effective 09/06/16 Magnesium Hydroxide* (MILK OF MAGNESIA*) 400 Mg/5 Ml Oral.susp, 30 ML ORAL Daily /PRN 09/06/16 Docusate Sodium* (DOCUSATE SODIUM*) 100 Mg Capsule, 100 MG ORAL TWICE A DAY 09/06/16 Collagenase Clostridium Hist. (Santyl) 30 Gm Oint...g., 1 APPLIC TP Daily/PRN for L trochanter/surgical [id number] 09/06/16 Escitalopram Oxalate* (LEXAPRO*) 20 Mg Tablet, 20 MG ORAL DAILY 09/06/16 Olanzapine* (ZYPREXA*) 5 Mg Tablet, 5 MG ORAL BEDTIME 09/06/16 Pantoprazole* (PROTONIX*) 40 Mg Tablet.dr, 40 MG ORAL BEFORE BREAKFAST 09/06/16 Lactulose (LACTULOSE*) 20 Gm/30 Ml Solution, 15 ML ORAL for hold for LBM 09/06/16 Spironolactone* (ALDACTONE*) 50 Mg Tablet, 50 MG ORAL DAILY 09/06/16 Rifaximin* (XIFAXAN*) 550 Mg Tablet, 550 MG ORAL TWICE A DAY, 0 Refills 09/06/16 Ferrous Sulfate* (FERROUS SULFATE*) 325 Mg Tablet, 325 MG ORAL TWICE A DAY, 0 Refills 09/06/16 Med list reviewed/reconciled: Yes Allergies: Coded Allergies: No Known Allergies (Unverified , 09/06/16) Patient History History Provided By: Medical Record [facility] Narrative PAST MEDICAL HISTORY: Cirrhosis, anxiety, depression, hypertension, dementia, history of alcoholism, and anemia. PAST SURGICAL HISTORY: Left-sided hip surgery. ALLERGIES: NKDA. SOCIAL HISTORY: The patient is positive for prior history of alcoholism. The patient is a [facility] of [facility] (limited source of information). Remainder information cannot be obtained. Social History: Reports: alcohol use - history Review of Systems All Other Systems: negative except mentioned in HPI Physical Exam Vital Signs Date Time Temp Pulse Resp B/P Pulse Ox O2 Delivery O2 Flow Rate FiO2 09/23/16 22:45 98.2 89 18 116/54 98 Room Air Sp02 EP Interpretation: reviewed Labs Laboratory Tests Test 09/23/16 23:16 09/23/16 23:26 09/24/16 10:15 White Blood Count 9.9 K/UL (4.8-10.8) Red Blood Count 2.20 M/UL (4.70-6.10) L Hemoglobin 7.6 G/DL (14.2-18.0) L Hematocrit 22.9 % (42.0-52.0) L Mean Corpuscular Volume 104 FL (80-99) H Mean Corpuscular Hemoglobin 34.6 PG (27.0-31.0) H Mean Corpuscular Hemoglobin Concent 33.3 G/DL (32.0-36.0) Red Cell Distribution Width 19.7 % (11.6-14.8) H Platelet Count 80 K/UL (150-450) L Mean Platelet Volume 7.0 FL (6.5-10.1) Neutrophils (%) (Auto) % (45.0-75.0) Lymphocytes (%) (Auto) % (20.0-45.0) Monocytes (%) (Auto) % (1.0-10.0) Eosinophils (%) (Auto) % (0.0-3.0) Basophils (%) (Auto) % (0.0-2.0) Prothrombin Time 28.1 SEC (9.30-11.50) H Prothromb Time International Ratio 2.7 (0.9-1.1) H Activated Partial Thromboplast Time 47 SEC (23-33) H Sodium Level 133 mEQ/L (135-145) L Potassium Level 5.1 mEQ/L (3.4-4.9) H Chloride Level 99 mEQ/L (98-107) Carbon Dioxide Level 21 mEQ/L (20-30) Anion Gap 13 (5-15) Blood Urea Nitrogen 42 mg/dL (7-23) H Creatinine 1.7 mg/dL (0.7-1.2) H Estimat Glomerular Filtration Rate 49.3 mL/min (>60) Glucose Level 123 mg/dL (74-106) H Calcium Level 8.4 mg/dL (8.6-10.2) L Urine Color Yellow Urine Appearance Slightly cloudy Urine pH 6 (4.5-8.0) Urine Specific [place] 1.015 (1.005-1.035) Urine Protein 2+ (NEGATIVE) H Urine Glucose (UA) Negative (NEGATIVE) Urine Ketones Negative (NEGATIVE) Urine Occult Blood 5+ (NEGATIVE) H Urine Nitrite Negative (NEGATIVE) Urine Bilirubin 1+ (NEGATIVE) H Urine Ictotest Negative Urine Urobilinogen 4 MG/DL (0.0-1.0) H Urine Leukocyte Esterase 2+ (NEGATIVE) H Urine RBC Tntc /HPF (0 - 0) H Urine WBC 2-4 /HPF (0 - 0) Urine Squamous Epithelial Cells None /LPF (NONE/OCC) Urine Amorphous Sediment Moderate /LPF (NONE) H Urine Bacteria Few /HPF (NONE) Urine Fine Granular Casts 0-2 /LPF (NONE) H Iron Level 50 ug/dL (59-158) L Total Iron Binding Capacity 120 ug/dL (250-400) L Percent Iron Saturation 42 % (15-50) Unsaturated Iron Binding 70 ug/dL (112-346) L General Appearance: no apparent distress Head: normocephalic EENT: normal ENT inspection Neck: supple Respiratory: no respiratory distress Cardiovascular: normal rate Gastrointestinal: distended, ascites Rectal: deferred Neurologic: alert, responsive Psychiatric: normal inspection, judgement/insight normal, memory normal Skin: normal inspection, normal color, no rash, warm/dry Lymphatic: normal inspection, no adenopathy Current Medications Current Medications Medications (Trade) Dose Ordered Sig/Carolynn Route PRN Reason Start Time Stop Time Status Last Admin Dose Admin Acetaminophen (Tylenol) 650 mg Q4H PRN ORAL Mild Pain/Temp > 100.5 09/24/16 05:00 10/24/16 04:59 Acetaminophen/ Hydrocodone Bitart ([place] 5/325) 1 tab Q4H PRN ORAL Moderate Pain (Pain Scale 4-6) 09/24/16 05:00 10/01/16 04:59 Ascorbic Acid (Vitamin C) 500 mg DAILY ORAL 09/24/16 09:00 10/24/16 08:59 09/24/16 09:08 Aspirin (Ecotrin) 81 mg DAILY ORAL 09/24/16 09:00 10/24/16 08:59 09/24/16 09:08 Bisacodyl (Dulcolax) 10 mg PRN PRN RECTAL Constipation 09/24/16 05:00 10/24/16 04:59 Calcium Carbonate ([place]) 1,250 mg BID ORAL 09/24/16 11:30 10/24/16 11:29 09/24/16 12:17 Docusate Sodium (Colace) 100 mg TWICE A DAY ORAL 09/24/16 09:00 10/24/16 08:59 09/24/16 09:08 Ergocalciferol (Drisdol) 50,000 intlu MoTh ORAL 09/26/16 09:00 10/26/16 08:59 Escitalopram Oxalate (Lexapro) 20 mg DAILY ORAL 09/24/16 09:00 10/24/16 08:59 09/24/16 09:08 Ferrous Sulfate (Feosol) 325 mg BIAC ORAL 09/24/16 06:30 10/24/16 06:29 09/24/16 06:06 Hydromorphone HCl (Dilaudid) 1 mg Q4H PRN IVP Severe Pain (Pain Scale 7-10) 09/24/16 05:00 10/01/16 04:59 09/24/16 11:00 Magnesium Hydroxide (Mom) 30 ml QHS PRN ORAL Constipation 09/24/16 05:00 10/24/16 04:59 Olanzapine (ZyPREXA) 5 mg BEDTIME ORAL 09/24/16 21:00 10/24/16 20:59 Pantoprazole (Protonix) 40 mg BEFORE BREAKFAST ORAL 09/24/16 06:30 10/24/16 06:29 09/24/16 06:06 Rifaximin (Xifaxan) 550 mg TWICE A DAY ORAL 09/24/16 09:00 10/01/16 08:59 09/24/16 09:08 Sodium Chloride (Sodium Chloride 1000ml bag) 1,000 ml @ 10 mls/hr Q24H ONCE IV 09/23/16 22:58 09/24/16 22:57 09/24/16 00:00 GI: Plan Problems: (1) Anemia (2) Elevated CEA (3) Acute hepatic encephalopathy (4) History of alcoholism (5) LFT elevation (6) Dehydration Plan Hep C positive OB stool uncollected patient will be scheduled for pt for EGD/colonoscopy - maintain patient on CLD. monitor H&H, transfuse prn ordered paracentesis, r/o SBP lactulose + xifaxin, ammonia levels am ppi propranolol, hold for SBP < [address] fu labs [address] with Dr. Bojorquez. Thank you for referring this patient, we will follow. TREVOR BOJORQUEZ 09/25/16 4120: History of Present Illness General Reason for Hospitalization: Abnormal Labs Present Illness Home Meds Reported Medications Zinc (ZINC) 50 Mg Tablet, 50 MG ORAL DAILY, TAB 09/24/16 Zinc Amino Acid Chelate (ZINC) 50 Mg Tablet, 50 MG ORAL, TAB 09/24/16 Vitamin D (Vitamin D3) 400 Unit Tablet, 12844 UNITS ORAL, TAB 09/24/16 Ascorbic Acid* (VITAMIN C*) 500 Mg Tablet, 500 MG ORAL DAILY, #30 TAB 0 Refills 09/24/16 Aspirin* (ASPIR 81*) 81 Mg Tablet.dr, 81 MG ORAL DAILY, TAB 09/24/16 Hydromorphone HCl (Hydromorphone HCl) 1 Mg/1 Ml Syringe, 1 MG IVP Q4HR Y for Severe Pain (Pain Scale 7-10), MG 09/09/16 Hydromorphone Hcl (DILAUDID) 1 Mg/1 Ml Liquid, 1 MG PO, ML 09/09/16 Acetaminophen (Acetaminophen) 650 Mg/20.3 Ml Solution, 650 MG ORAL Q4HR Y for Mild Pain/Temp > 100.5, ML 0 Refills 09/09/16 Hydrocodone Bit/Acetaminophen 5-325* (NORCO 5-325 TABLET*) 1 Each Tablet, 1 TAB ORAL Q4H Y for Moderate Pain (Pain Scale 4-6), TAB 09/09/16 Lactulose (LACTULOSE) 10 Gm/15 Ml Solution, 10 GM PO TID 09/09/16 Rifaximin* (XIFAXAN*) 550 Mg Tablet, 550 MG ORAL TWICE A DAY for 30 Days, MG 0 Refills 09/09/16 Ferrous Sulfate (Ferrous Sulfate) 325 Mg Tablet, 1 TAB ORAL TWICE A DAY, #60 TAB 0 Refills 09/09/16 Calcium Carbonate (CALCIUM CARBONATE) 500 Mg Tablet, 500 MG PO BID, TAB 09/09/16 Propranolol HCl (Propranolol HCl) 20 Mg Tablet, 20 MG PO FOUR TIMES A DAY, TAB 09/09/16 Olanzapine* (ZYPREXA*) 5 Mg Tablet, 5 MG ORAL BEDTIME, TAB 09/09/16 Pantoprazole* (PROTONIX*) 40 Mg Tablet.dr, 40 MG ORAL BEFORE BREAKFAST, TAB 09/09/16 Escitalopram Oxalate* (LEXAPRO*) 20 Mg Tablet, 20 MG ORAL DAILY, TAB 09/09/16 Spironolact/Hydrochlorothiazid (ALDACTAZIDE 50-50 TABLET) 1 Each Tablet, 1 TAB ORAL DAILY, TAB 09/09/16 Pantoprazole (PANTOPRAZOLE) 20 Mg Tablet.dr, 20 MG ORAL DAILY, #10 TAB 0 Refills 09/09/16 Spironolact/Hydrochlorothiazid (SPIRONOLACTONE-HCTZ 25-25 TAB) 1 Each Tablet, 1 TAB ORAL DAILY, TAB 09/09/16 Calcium Carbonate (CALCIUM CARBONATE) 500 Mg Tablet, 500 MG PO BID, TAB 09/07/16 Acetaminophen* (ACETAMINOPHEN 325MG TABLET*) 325 Mg Tablet, 650 MG ORAL Q4H/PRN for mild pain/fever >101F 09/06/16 Sennosides (SENNA) 8.6 Mg Tablet, 8.6 MG PO 09/06/16 Na Phos,M-B/Na Phos,Di-Ba* (FLEET ENEMA*) 133 Ml Enema, 133 ML RECTAL PRN 09/06/16 Bisacodyl (DULCOLAX) 10 Mg Supp.rect, 10 MG RC PRN for if MOM not effective 09/06/16 Magnesium Hydroxide* (MILK OF MAGNESIA*) 400 Mg/5 Ml Oral.susp, 30 ML ORAL Daily /PRN 09/06/16 Docusate Sodium* (DOCUSATE SODIUM*) 100 Mg Capsule, 100 MG ORAL TWICE A DAY 09/06/16 Collagenase Clostridium Hist. (Santyl) 30 Gm Oint...g., 1 APPLIC TP Daily/PRN for L trochanter/surgical [id number] 09/06/16 Escitalopram Oxalate* (LEXAPRO*) 20 Mg Tablet, 20 MG ORAL DAILY 09/06/16 Olanzapine* (ZYPREXA*) 5 Mg Tablet, 5 MG ORAL BEDTIME 09/06/16 Pantoprazole* (PROTONIX*) 40 Mg Tablet.dr, 40 MG ORAL BEFORE BREAKFAST 09/06/16 Lactulose (LACTULOSE*) 20 Gm/30 Ml Solution, 15 ML ORAL for hold for LBM 09/06/16 Spironolactone* (ALDACTONE*) 50 Mg Tablet, 50 MG ORAL DAILY 09/06/16 Rifaximin* (XIFAXAN*) 550 Mg Tablet, 550 MG ORAL TWICE A DAY, 0 Refills 09/06/16 Ferrous Sulfate* (FERROUS SULFATE*) 325 Mg Tablet, 325 MG ORAL TWICE A DAY, 0 Refills 09/06/16 Allergies: Coded Allergies: No Known Allergies (Unverified , 09/06/16) GI: Plan Plan The patient was seen and examined at bedside and all new and available data was reviewed in the patients chart. I agree with the above findings, impression and plan. (Patient seen earlier today. Signature stamp does not reflect patient encounter time.). -[facility] Norris N.PSong September 24, 2016 15:00 TREVOR BOJORQUEZ September 25, 2016 13:57
--- NOTE | 2016-09-24 15:15 | Consultation ---
Consult Note Consult Note asked to evaluate for renal failure and hyperkalemia Is a 66-year-old male with multiple medical problem. He resides in a half-way. He presents with chief complaint of abnormal lab with low hemoglobin. No active bleeding. This has no complaint. No fever or chills. No chest pain. admitted for Anemia , dehydration, EDITH patient lethargic non historian examined data reviewed Assessment/Plan status: Acute renal failure- Severe Anemia HyperKalemia Dehydration Proteinuria UTI High INR others: 1. s/p Status post mechanical fall. 2. Left periprosthetic femoral fracture. 3. Alcoholic liver cirrhosis. 4. s/p Elevated transaminase. 5. 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 6. Elevated tumor markers (CEA, AFP/alpha-fetoprotein). 7. Acute hepatic encephalopathy. 8. Hypertension. 9. Dementia. 10. Psychosis. 11. History of hemiarthroplasty, left hip, recent. 12. Hepatitis C. 13. History of alcohol abuse. 14. Anemia of chronic disease. 15. Thrombocytopenia, secondary to alcohol abuse. Plan: Transfuse- hold mind altering meds- antibiotics - avoid nephrotoxics urine studies monitor renal parameters per orders PRINCESS PALACIO September 24, 2016 15:15
--- NOTE | 2016-09-24 17:58 | History and Physical Report ---
DATE OF ADMISSION: 09/24/2016 SOURCE OF INFORMATION: EMR. HISTORY OF PRESENT ILLNESS: The patient is a 66-year-old male, status post left hip fracture and surgery. The patient is transferred from a prison facility regarding the abnormal oozing of the blood and decreased drop in the hemoglobin. At the time of evaluation, the patient is comfortable and seen and examined under General Medical Floor and positive review of systems as follows, positive for [id number] pain on the hip, negative for chest pain and shortness of breath, positive for minimal bleeding from the wound of the left hip. REVIEW OF SYSTEMS: 10-point review of systems reviewed. The pertinent positive findings in history of present illness as above. PAST MEDICAL HISTORY: Significant for depression, hypertension, dementia, history of alcoholism, and anemia. PAST SURGICAL HISTORY: Left hip surgery initially three to four months ago followed by complication of second surgery about two weeks ago in [facility]. CURRENT HOSPITAL MEDICATIONS: As follows, Tylenol, aspirin, calcium, vitamin D, Lexapro, ferrous sulfate, [place], and rifaximin. ALLERGIES: NKDA. SOCIAL HISTORY: Positive for prior history of alcoholism. Currently resident of a prison facility [facility]. The patient's next kin sister is in close contact with the medical team. FAMILY HISTORY: Reviewed and noncontributory. PHYSICAL EXAMINATION: VITAL SIGNS: Blood pressure 120/70, pulse oximetry 98% on room air, respiratory rate 18, pulse rate 85-90, and temperature 98.2 degrees. HEAD AND NECK: Atraumatic and normocephalic. CHEST: Clear to auscultation. HEART: S1 and S2. Regular rate and rhythm. ABDOMEN: Soft. Positive for distention and possibility of the mood shifting dullness cannot be excluded. NEUROLOGIC: The patient is awake, alert and oriented x1. MUSCULOSKELETAL: Positive for decreased range of motion of the lower extremity. Positive for 2+ pitting edema in the lower extremities. LABORATORY AND DIAGNOSTIC DATA: Labs dated 09/23/2016 shows WBC 9.9, hemoglobin 7.6, and platelets 80,000. Sodium 133, potassium 5.1, BUN 42, creatinine 1.7. INR 2.7. ASSESSMENT: 1. Bleeding diatheses from the postoperative left-sided hip area. 2. Left-sided hip fracture, status post complicated course of infection and revision surgery in [facility] in August 2016. 3. Acute anemia. 4. Anxiety and depression. 5. Dementia. 6. Alcoholic cirrhosis. 7. Hypercoagulable state. 8. Iron deficiency anemia. 9. Pain management. 10. Gastrointestinal and deep vein thrombosis prophylaxis. PLAN: Plan of care with the anticoagulation. Only on aspirin low dose. We will obtain the lower extremity duplex prior to SCD placement. Hematology/Oncology, orthopedic surgeon, and Nephrology have already been consulted in addition to the GI service. We will resume the snf medications. We will obtain the iron panel. No evidence of active infection. Type and cross 2 units of blood supply to the transfusion. Vitamin K 10 mg x1 subcutaneously. Guarded prognosis. Shanita Oden M.D. DR: Rocío JOB#: [id number] CC:
[2016-09-24] MEDS: Propranolol 40mg tab ORAL SCH (18:00)
[2016-09-24] MEDS ORDERED: Propranolol 40mg tab ORAL SCH (18:00)
[2016-09-24] MEDS: Lactulose 20gm/30ml UDC ORAL SCH (19:00)
[2016-09-24] MEDS ORDERED: Tamsulosin 0.4mg cap ORAL SCH (21:00)
--- NOTE | 2016-09-24 21:08 | Wound Care Consultation ---
Wound Assessment Wound Assessment #1: Wound Present on Admission: Yes New Wound: No Status Change of Wound: No Wound Location Body Site Modif: left Wound Location Body Site: trochanter Wound Type: incision - surgical Angela Test: Does not Angela Pressure Ulcer Stage: deep tissue injury Incisional Wounds: Sutured w/ Brandie Wound Length: 28.0 Wound Drainage Description: [place], Serosanguineous Wound Drainage Amount: Moderate Wound Drainage Odor: None/Absent Tissue Surrounding Wound: Intact Wound General Appearance: Draining Wound Assessment #2: Wound Number: #2 Wound Present on Admission: Yes New Wound: No Status Change of Wound: No Wound Location Body Site Modif: left Wound Location Body Site: heel Wound Type: pressure ulcer Angela Test: Does not Angela Pressure Ulcer Stage: deep tissue injury - blood filled blister, soft and boggy Wound Thickness: Full Thickness Wound Length: 6.5 Wound Width: 7.0 Wound Depth: utd Percent of Wound Purple/Maroon: 100 Wound Drainage Amount: None Wound Drainage Odor: None/Absent Tissue Surrounding Wound: Intact Wound General Appearance: Reddened Wound Comment #1 Left hip surgical incision with brandie #2 Left heel DTI pressure ulcer. Blood filled blister, soft and boggy. Recommendation -Local wound care per protocol for DTI pressure ulcer -F/u with MD for surgical incision treatment -Heel protector on both heels -Offload both heels -Turn and reposition -Optimize nutrition -Keep clean and dry -Low air loss mattress -Assess and f/u accordingly for any changes BURAK REYES RN September 24, 2016 21:08
--- NOTE | 2016-09-24 22:55 | Consultation ---
Consult Note Consult Note DATE OF CONSULTATION: 09/24/16 HEMATOLOGY/ONCOLOGY CONSULTATION CONSULTING PHYSICIAN: Abril Snyder M.D ATTENDING PHYSICIAN: Shanita Oden M.D. REASON FOR CONSULTATION: Coagulopathy, thrombocytopenia, and anemia. CURRENT COMPLAINT/HISTORY OF PRESENT ILLNESS: Dear Dr. Oden, Today, I had an opportunity to see one of your patient, Mr. Channing Freed, who as you are well aware 66-year-old delightful gentleman with past medical history remarkable for history of hip fracture s/p rep, alcoholic liver cirrhosis, thrombocytopenia, anemia, and dementia. The patient was found to have fall episodes and developed acute left hip periprosthetic fracture. He has coagulopathy as well as thrombocytopenia and anemia and heme was consulted in regards to anticoag PAST MEDICAL HISTORY: 1. History of left hip fracture. 2. Alcoholic liver cirrhosis. 3. Thrombocytopenia. 4. Anemia of chronic disease. 5. 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 6. Dementia. MEDICATIONS: 1. Spironolactone. 2. Celexa. 3. Protonix. 4. Ferrous sulfate. 5. Tylenol. 6. Dilaudid. ALLERGIES: NKDA. FAMILY HISTORY: Noncontributory. SOCIAL HISTORY: No history of smoking. No history of alcohol abuse. No history of illicit drug use. REVIEW OF SYSTEMS: General Description: The patient is not in any significant distress, but is chronically ill. Respiratory: Mild shortness of breath on exertion. Gastrointestinal: The patient claim constipation. Neuromuscular: The patient claims muscle weakness. PHYSICAL EXAMINATION: VITAL SIGNS: Vitals have been reviewed and are stable GEN: NAD, A+O x3 HEART: S1 and S2 regular. ABDOMEN: Soft and benign. No organomegaly present. Bowel sounds present. EXTREMITIES: No cyanosis, clubbing, or edema. IMPRESSION: 1. Thrombocytopenia secondary to alcoholic liver cirrhosis. ok to continue asa, would hold off on coumadin and/or heparin sq 2. Alcoholic liver cirrhosis. 3. Anemia of bleeding diathesis from hip 4. 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 5. Acute left hip periprosthetic fracture s/p repair 6. History of alcohol abuse. 7. Dementia. 8. Psychosis. 9. Failure to thrive. RECOMMENDATIONS: -. Prior admission and heme workup has been reviewed -. Ok to continue asa, would hold off on coumadin and/or heparin sq -. Watch counts, transfuse to hgb >8 (especially in light of bleeding diathesis and cirrhosis) -. Watch coagulopathy. -. Vitamin K prn -. Appreciate consultation! Darren Snyder September 24, 2016 22:55
[2016-09-25] VITALS (23 sets, daily range): BP systolic 80–135; BP diastolic 43–97
[2016-09-25 06:29] LABS: MEAN CORPUSCULAR HEMOGLOBIN 33.1 PG (27.0-31.0); MEAN CORPUSCULAR HGB CONC 32.7 G/DL (32.0-36.0); MEAN CORPUSCULAR VOLUME 101 FL (80-99); MEAN PLATELET VOLUME 7.4 FL (6.5-10.1); PLATELET COUNT 56 K/UL (150-450); RED BLOOD COUNT 2.33 M/UL (4.70-6.10)
[2016-09-25 06:34] LABS: INR 1.8 (0.9-1.1); PROTHROMBIN TIME 18.3 SEC (9.30-11.50)
[2016-09-25 07:20] LABS: ALBUMIN/GLOBULIN RATIO 0.3 (1.0-2.7); CALCIUM 8.2 mg/dL (8.6-10.2); CREATININE 1.5 mg/dL (0.7-1.2); POTASSIUM 4.9 mEQ/L (3.4-4.9); TOTAL PROTEIN 5.8 g/dL (6.6-8.7)
[2016-09-25 07:34] LABS: CRP QUANT 1.8 mg/dL (< 0.5); MAGNESIUM 1.9 mg/dL (1.7-2.5); PHOSPHORUS 3.2 mg/dL (2.5-4.8); URIC ACID 9.1 mg/dL (3.0-7.5)
[2016-09-25 07:36] LABS: BILIRUBIN,DIRECT 1.3 mg/dL (0.1-0.3)
[2016-09-25 08:25] LABS: BAND NEUTROPHILS % (MANUAL) 0 % (0-8); BASOPHILS % (MANUAL) 0 % (0-2); EOSINOPHILS % (MANUAL) 1 % (0-3); HYPOCHROMASIA 1+; LYMPHOCYTES % (MANUAL) 14 % (20-45); MACROCYTES 1+; NEUTROPHILS % (MANUAL) 80 % (45-75); PLATELET ESTIMATE DECREASED; PLATELET MORPHOLOGY NORMAL; TOTAL CELLS COUNTED 100
[2016-09-25 08:26] LABS: ANISOCYTOSIS 2+
--- NOTE | 2016-09-25 08:48 | Consultation ---
History of Present Illness General Date patient seen: September 25, 2016 Present Illness Allergies: Coded Allergies: No Known Allergies (Unverified , 09/06/16) Medication History Scheduled Acetaminophen* (Acetaminophen 325MG Tablet*), 650 MG ORAL Q4H/PRN, (Reported) Ascorbic Acid* (Vitamin C*), 500 MG ORAL DAILY, (Reported) Aspirin* (Aspir 81*), 81 MG ORAL DAILY, (Reported) Bisacodyl (Dulcolax), 10 MG RC PRN, (Reported) Calcium Carbonate (Calcium Carbonate), 500 MG PO BID, (Reported) Calcium Carbonate (Calcium Carbonate), 500 MG PO BID, (Reported) Collagenase Clostridium Hist. (Santyl), 1 APPLIC TP Daily/PRN, (Reported) Docusate Sodium* (Docusate Sodium*), 100 MG ORAL TWICE A DAY, (Reported) Escitalopram Oxalate* (Lexapro*), 20 MG ORAL DAILY, (Reported) Escitalopram Oxalate* (Lexapro*), 20 MG ORAL DAILY, (Reported) Ferrous Sulfate (Ferrous Sulfate), 1 TAB ORAL TWICE A DAY, (Reported) Ferrous Sulfate* (Ferrous Sulfate*), 325 MG ORAL TWICE A DAY, (Reported) Lactulose (Lactulose), 10 GM PO TID, (Reported) Magnesium Hydroxide* (Milk Of Magnesia*), 30 ML ORAL Daily/PRN, (Reported) Na Phos,M-B/Na Phos,Di-Ba* (Fleet Enema*), 133 ML RECTAL PRN, (Reported) Olanzapine* (Zyprexa*), 5 MG ORAL BEDTIME, (Reported) Olanzapine* (Zyprexa*), 5 MG ORAL BEDTIME, (Reported) Pantoprazole (Pantoprazole), 20 MG ORAL DAILY, (Reported) Pantoprazole* (Protonix*), 40 MG ORAL BEFORE BREAKFAST, (Reported) Pantoprazole* (Protonix*), 40 MG ORAL BEFORE BREAKFAST, (Reported) Propranolol HCl (Propranolol HCl), 20 MG PO FOUR TIMES A DAY, (Reported) Rifaximin* (Xifaxan*), 550 MG ORAL TWICE A DAY, (Reported) Rifaximin* (Xifaxan*), 550 MG ORAL TWICE A DAY, (Reported) Spironolact/Hydrochlorothiazid (Spironolactone-Hctz 25-25 Tab), 1 TAB ORAL DAILY , (Reported) Spironolact/Hydrochlorothiazid (Aldactazide 50-50 Tablet), 1 TAB ORAL DAILY, ( Reported) Spironolactone* (Aldactone*), 50 MG ORAL DAILY, (Reported) Zinc (Zinc), 50 MG ORAL DAILY, (Reported) Scheduled PRN Acetaminophen (Acetaminophen), 650 MG ORAL Q4HR PRN for Mild Pain/Temp > 100.5, (Reported) Hydrocodone Bit/Acetaminophen 5-325* ([place] 5-325 Tablet*), 1 TAB ORAL Q4H PRN for Moderate Pain (Pain Scale 4-6), (Reported) Hydromorphone HCl (Hydromorphone HCl), 1 MG IVP Q4HR PRN for Severe Pain (Pain Scale 7-10), (Reported) Miscellaneous Medications Hydromorphone Hcl (Dilaudid), 1 MG PO, (Reported) Lactulose (Lactulose*), 15 ML ORAL, (Reported) Sennosides (Senna), 8.6 MG PO, (Reported) Vitamin D (Vitamin D3), 50,000 UNITS ORAL, (Reported) Zinc Amino Acid Chelate (Zinc), 50 MG ORAL, (Reported) Patient History Healthcare decision maker Resuscitation status Full Code Advanced Directive on File No Physical Exam Last 24 Hour Vital Signs Date Time Temp Pulse Resp B/P Pulse Ox O2 Delivery O2 Flow Rate FiO2 09/25/16 08:12 98.1 88 19 135/76 100 09/25/16 04:20 97.3 82 17 128/78 93 Room Air 09/24/16 23:45 97.7 85 19 130/80 Room Air 09/24/16 20:52 100.0 75 17 145/69 59 Room Air 09/24/16 18:00 84 100/58 09/24/16 15:58 97.7 80 20 117/72 97 Room Air 09/24/16 11:46 97.2 88 21 115/66 98 Room Air Intake and Output 09/24/16 09/25/16 19:00 07:00 Intake Total 650 ml Output Total 275 ml Balance 375 ml Intake Oral 400 ml Blood Product 250 ml Output Urine Total 275 ml # Voids 3 2 # Bowel Movements 2 3 Laboratory Tests Test 09/24/16 10:15 09/24/16 10:27 5/2/17 20:00 09/25/16 05:05 Iron Level 50 ug/dL (59-158) L Total Iron Binding Capacity 120 ug/dL (250-400) L Percent Iron Saturation 42 % (15-50) Unsaturated Iron Binding 70 ug/dL (112-346) L Ferritin 396 ng/mL (10-230) H Stool Occult Blood Pending White Blood Count 5.0 K/UL (4.8-10.8) Red Blood Count 2.33 M/UL (4.70-6.10) L Hemoglobin 7.7 G/DL (14.2-18.0) L Hematocrit 23.6 % (42.0-52.0) L Mean Corpuscular Volume 101 FL (80-99) H Mean Corpuscular Hemoglobin 33.1 PG (27.0-31.0) H Mean Corpuscular Hemoglobin Concent 32.7 G/DL (32.0-36.0) Red Cell Distribution Width 21.0 % (11.6-14.8) H Platelet Count 56 K/UL (150-450) L Mean Platelet Volume 7.4 FL (6.5-10.1) Neutrophils (%) (Auto) % (45.0-75.0) Lymphocytes (%) (Auto) % (20.0-45.0) Monocytes (%) (Auto) % (1.0-10.0) Eosinophils (%) (Auto) % (0.0-3.0) Basophils (%) (Auto) % (0.0-2.0) Differential Total Cells Counted 100 Neutrophils % (Manual) 80 % (45-75) H Lymphocytes % (Manual) 14 % (20-45) L Monocytes % (Manual) 5 % (1-10) Eosinophils % (Manual) 1 % (0-3) Basophils % (Manual) 0 % (0-2) Band Neutrophils 0 % (0-8) Platelet Estimate Decreased L Platelet Morphology Normal Hypochromasia 1+ Anisocytosis 2+ Macrocytosis 1+ Prothrombin Time 18.3 SEC (9.30-11.50) H Prothromb Time International Ratio 1.8 (0.9-1.1) H Activated Partial Thromboplast Time 40 SEC (23-33) H Sodium Level 136 mEQ/L (135-145) Potassium Level 4.9 mEQ/L (3.4-4.9) Chloride Level 102 mEQ/L (98-107) Carbon Dioxide Level 22 mEQ/L (20-30) Anion Gap 12 (5-15) Blood Urea Nitrogen 43 mg/dL (7-23) H Creatinine 1.5 mg/dL (0.7-1.2) H Estimat Glomerular Filtration Rate 57.0 mL/min (>60) Glucose Level 92 mg/dL (74-106) Uric Acid 9.1 mg/dL (3.0-7.5) H Calcium Level 8.2 mg/dL (8.6-10.2) L Phosphorus Level 3.2 mg/dL (2.5-4.8) Magnesium Level 1.9 mg/dL (1.7-2.5) Total Bilirubin 2.6 mg/dL (0.0-1.2) H Direct Bilirubin 1.3 mg/dL (0.1-0.3) H Gamma Glutamyl Transpeptidase 29 U/L (8-61) Aspartate Amino Transf (AST/SGOT) 70 U/L (5-40) H Alanine Aminotransferase (ALT/SGPT) 11 U/L (3-41) Alkaline Phosphatase 111 U/L (40-129) Ammonia 53 umol/L (16-60) Total Creatine Kinase 98 U/L (38-174) C-Reactive Protein, Quantitative 1.8 mg/dL (< 0.5) H Pro-B-Type Natriuretic Peptide 305 pg/mL (0-125) H Total Protein 5.8 g/dL (6.6-8.7) L Albumin 1.4 g/dL (3.5-5.2) L Globulin 4.4 g/dL Albumin/Globulin Ratio 0.3 (1.0-2.7) L Vitamin B12 Level 1975 pg/mL (211-946) H Folate Pending Height (Feet): 6 Height (Inches): 2.00 Weight (Pounds): 232 Medications Current Medications Medications (Trade) Dose Ordered Sig/Carolynn Route PRN Reason Start Time Stop Time Status Last Admin Dose Admin Acetaminophen (Tylenol) 650 mg Q4H PRN ORAL Mild Pain/Temp > 100.5 09/24/16 05:00 10/24/16 04:59 Acetaminophen/ Hydrocodone Bitart ([place] 5/325) 1 tab Q4H PRN ORAL Moderate Pain (Pain Scale 4-6) 09/24/16 05:00 10/01/16 04:59 Ascorbic Acid (Vitamin C) 500 mg DAILY ORAL 09/24/16 09:00 10/24/16 08:59 09/24/16 09:08 Aspirin (Ecotrin) 81 mg DAILY ORAL 09/24/16 09:00 10/24/16 08:59 09/24/16 09:08 Bisacodyl (Dulcolax) 10 mg PRN PRN RECTAL Constipation 09/24/16 05:00 10/24/16 04:59 Calcium Carbonate (Os-Amari) 1,250 mg BID ORAL 09/24/16 11:30 10/24/16 11:29 09/24/16 19:00 Docusate Sodium (Colace) 100 mg TWICE A DAY ORAL 09/24/16 09:00 10/24/16 08:59 09/24/16 19:00 Ergocalciferol (Drisdol) 50,000 intlu MoTh ORAL 09/26/16 09:00 10/26/16 08:59 Escitalopram Oxalate (Lexapro) 20 mg DAILY ORAL 09/24/16 09:00 10/24/16 08:59 09/24/16 09:08 Hydromorphone HCl (Dilaudid) 1 mg Q4H PRN IVP Severe Pain (Pain Scale 7-10) 09/24/16 05:00 10/01/16 04:59 09/24/16 11:00 Lactulose (Cephulac) 30 gm THREE TIMES A DAY ORAL 09/24/16 18:00 10/24/16 17:59 09/24/16 19:00 Magnesium Hydroxide (Mom) 30 ml QHS PRN ORAL Constipation 09/24/16 05:00 10/24/16 04:59 Olanzapine (ZyPREXA) 5 mg BEDTIME ORAL 09/24/16 21:00 10/24/16 20:59 09/24/16 21:10 Pantoprazole (Protonix) 40 mg DAILY IVP 09/25/16 09:00 10/25/16 08:59 Propranolol HCl (Inderal) 20 mg BID ORAL 09/24/16 18:00 10/24/16 17:59 Rifaximin (Xifaxan) 550 mg TWICE A DAY ORAL 09/24/16 09:00 10/01/16 08:59 09/24/16 19:00 Tamsulosin HCl (Flomax) 0.4 mg BEDTIME ORAL 09/24/16 21:00 10/24/16 20:59 09/24/16 21:10 Assessment/Plan Assessment/Plan (1) Dementia (2) S/p Mechanical fall (3) Left hip Fracture (4) Left hip pain (5) S/p Left hip hemiarthroplasty Seen dictated SLOAN PACKER September 25, 2016 08:48
[2016-09-25] MEDS ORDERED: Pantoprazole Inj IVP SCH (09:00)
[2016-09-25] MEDS: Lactulose 20gm/30ml UDC ORAL SCH (09:36)
[2016-09-25] MEDS: Docusate 100mg cap ORAL SCH (09:38)
[2016-09-25] MEDS: Aspirin EC 81mg tab ORAL SCH (09:39)
[2016-09-25] MEDS: Propranolol 40mg tab ORAL SCH (09:44)
[2016-09-25] MEDS: Calcium Carbonate 1250mg/5ml Liquid ud ORAL SCH (09:48)
[2016-09-25] MEDS: Ascorbic Acid 500mg tab ORAL SCH (09:49)
[2016-09-25] MEDS: Rifaximin 550mg tab ORAL SCH (09:50)
--- NOTE | 2016-09-25 09:59 | General Progress Note ---
Assessment/Plan Status: stable Assessment/Plan 1. Bleeding diatheses from the postoperative left-sided hip area. 2. Left-sided hip fracture, status post complicated course of infection and revision surgery in [facility] in August 2016. 3. Acute anemia. 4. Anxiety and depression. 5. Dementia. 6. Alcoholic cirrhosis. 7. Hypercoagulable state. 8. Iron deficiency anemia. 9. Pain management. 11. A/C Renal failure 10. Gastrointestinal and deep vein thrombosis prophylaxis. Plan: Current management GI Hemonch Nephro Ortho Notes are reviewed Subjective ROS Limited/Unobtainable: Yes Allergies: Coded Allergies: No Known Allergies (Unverified , 09/06/16) Objective Last 24 Hour Vital Signs Date Time Temp Pulse Resp B/P Pulse Ox O2 Delivery O2 Flow Rate FiO2 09/25/16 09:44 83 118/62 09/25/16 08:12 98.1 88 19 135/76 100 09/25/16 04:20 97.3 82 17 128/78 93 Room Air 09/24/16 23:45 97.7 85 19 130/80 Room Air 09/24/16 20:52 100.0 75 17 145/69 59 Room Air 09/24/16 18:00 84 100/58 09/24/16 15:58 97.7 80 20 117/72 97 Room Air 09/24/16 11:46 97.2 88 21 115/66 98 Room Air Intake and Output 09/24/16 09/25/16 19:00 07:00 Intake Total 650 ml Output Total 275 ml Balance 375 ml Intake Oral 400 ml Blood Product 250 ml Output Urine Total 275 ml # Voids 3 2 # Bowel Movements 2 3 Laboratory Tests 09/24/16 10:15: Iron Level 50L, Total Iron Binding Capacity 120L, Percent Iron Saturation 42, Unsaturated Iron Binding 70L 09/24/16 10:27: Ferritin 396H 09/24/16 20:00: Stool Occult Blood [Pending] 09/25/16 05:05: White Blood Count 5.0, Red Blood Count 2.33L, Hemoglobin 7.7L, Hematocrit 23.6L , Mean Corpuscular Volume 101H, Mean Corpuscular Hemoglobin 33.1H, Mean Corpuscular Hemoglobin Concent 32.7, Red Cell Distribution Width 21.0H, Platelet Count 56L, Mean Platelet Volume 7.4, Neutrophils (%) (Auto) , Lymphocytes (%) (Auto) , Monocytes (%) (Auto) , Eosinophils (%) (Auto) , Basophils (%) (Auto) , Differential Total Cells Counted 100, Neutrophils % ( Manual) 80H, Lymphocytes % (Manual) 14L, Monocytes % (Manual) 5, Eosinophils % ( Manual) 1, Basophils % (Manual) 0, Band Neutrophils 0, Platelet Estimate DecreasedL, Platelet Morphology Normal, Hypochromasia 1+, Anisocytosis 2+, Macrocytosis 1+, Prothrombin Time 18.3H, Prothromb Time International Ratio 1.8H , Activated Partial Thromboplast Time 40H, Sodium Level 136, Potassium Level 4.9 , Chloride Level 102, Carbon Dioxide Level 22, Anion Gap 12, Blood Urea Nitrogen 43H, Creatinine 1.5H, Estimat Glomerular Filtration Rate 57.0, Glucose Level 92, Uric Acid 9.1H, Calcium Level 8.2L, Phosphorus Level 3.2, Magnesium Level 1.9, Total Bilirubin 2.6H, Direct Bilirubin 1.3H, Gamma Glutamyl Transpeptidase 29, Aspartate Amino Transf (AST/SGOT) 70H, Alanine Aminotransferase (ALT/SGPT) 11, Alkaline Phosphatase 111, Ammonia 53, Total Creatine Kinase 98, C-Reactive Protein, Quantitative 1.8H, Pro-B-Type Natriuretic Peptide 305H, Total Protein 5.8L, Albumin 1.4L, Globulin 4.4, Albumin/Globulin Ratio 0.3L, Vitamin B12 Level 1975H, Folate [Pending] Height (Feet): 6 Height (Inches): 2.00 Weight (Pounds): 232 General Appearance: WD/WN EENT: PERRL/EOMI Neck: supple Cardiovascular: normal rate Respiratory/Chest: lungs clear Abdomen: soft Extremities: other - minimal oozing from left hip wound. 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
--- NOTE | 2016-09-25 10:40 | General Progress Note ---
Assessment/Plan Status: stable - from renal stand Assessment/Plan status; Acute renal failure- Severe Anemia HyperKalemia Dehydration Proteinuria UTI High INR others: 1. s/p Status post mechanical fall. 2. Left periprosthetic femoral fracture. 3. Alcoholic liver cirrhosis. 4. s/p Elevated transaminase. 5. 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 6. Elevated tumor markers (CEA, AFP/alpha-fetoprotein). 7. Acute hepatic encephalopathy. 8. Hypertension. 9. Dementia. 10. Psychosis. 11. History of hemiarthroplasty, left hip, recent. 12. Hepatitis C. 13. History of alcohol abuse. 14. Anemia of chronic disease. 15. Thrombocytopenia, secondary to alcohol abuse. Transfuse- hold mind altering meds- antibiotics - avoid nephrotoxics urine studies monitor renal parameters per orders Subjective ROS Limited/Unobtainable: No Constitutional: Reports: malaise, weakness Allergies: Coded Allergies: No Known Allergies (Unverified , 09/06/16) Objective Last 24 Hour Vital Signs Date Time Temp Pulse Resp B/P Pulse Ox O2 Delivery O2 Flow Rate FiO2 09/25/16 09:44 83 118/62 09/25/16 08:12 98.1 88 19 135/76 100 09/25/16 04:20 97.3 82 17 128/78 93 Room Air 09/24/16 23:45 97.7 85 19 130/80 Room Air 09/24/16 20:52 100.0 75 17 145/69 59 Room Air 09/24/16 18:00 84 100/58 09/24/16 15:58 97.7 80 20 117/72 97 Room Air 09/24/16 11:46 97.2 88 21 115/66 98 Room Air Intake and Output 09/24/16 09/25/16 19:00 07:00 Intake Total 650 ml Output Total 275 ml Balance 375 ml Intake Oral 400 ml Blood Product 250 ml Output Urine Total 275 ml # Voids 3 2 # Bowel Movements 2 3 Laboratory Tests 09/24/16 20:00: Stool Occult Blood Positive 09/25/16 05:05: White Blood Count 5.0, Red Blood Count 2.33L, Hemoglobin 7.7L, Hematocrit 23.6L , Mean Corpuscular Volume 101H, Mean Corpuscular Hemoglobin 33.1H, Mean Corpuscular Hemoglobin Concent 32.7, Red Cell Distribution Width 21.0H, Platelet Count 56L, Mean Platelet Volume 7.4, Neutrophils (%) (Auto) , Lymphocytes (%) (Auto) , Monocytes (%) (Auto) , Eosinophils (%) (Auto) , Basophils (%) (Auto) , Differential Total Cells Counted 100, Neutrophils % ( Manual) 80H, Lymphocytes % (Manual) 14L, Monocytes % (Manual) 5, Eosinophils % ( Manual) 1, Basophils % (Manual) 0, Band Neutrophils 0, Platelet Estimate DecreasedL, Platelet Morphology Normal, Hypochromasia 1+, Anisocytosis 2+, Macrocytosis 1+, Prothrombin Time 18.3H, Prothromb Time International Ratio 1.8H , Activated Partial Thromboplast Time 40H, Sodium Level 136, Potassium Level 4.9 , Chloride Level 102, Carbon Dioxide Level 22, Anion Gap 12, Blood Urea Nitrogen 43H, Creatinine 1.5H, Estimat Glomerular Filtration Rate 57.0, Glucose Level 92, Uric Acid 9.1H, Calcium Level 8.2L, Phosphorus Level 3.2, Magnesium Level 1.9, Total Bilirubin 2.6H, Direct Bilirubin 1.3H, Gamma Glutamyl Transpeptidase 29, Aspartate Amino Transf (AST/SGOT) 70H, Alanine Aminotransferase (ALT/SGPT) 11, Alkaline Phosphatase 111, Ammonia 53, Total Creatine Kinase 98, C-Reactive Protein, Quantitative 1.8H, Pro-B-Type Natriuretic Peptide 305H, Total Protein 5.8L, Albumin 1.4L, Globulin 4.4, Albumin/Globulin Ratio 0.3L, Vitamin B12 Level 1975H, Folate [Pending] Height (Feet): 6 Height (Inches): 2.00 Weight (Pounds): 232 General Appearance: no apparent distress, lethargic Cardiovascular: normal rate Respiratory/Chest: decreased breath sounds Abdomen: distended PRINCESS PALACIO September 25, 2016 10:40
[2016-09-25] MEDS: HYDROmorphone 1mg/ml Carpuject IVP PRN (11:02)
--- NOTE | 2016-09-25 11:28 | GI Progress Note ---
Assessment/Plan Problems: (1) Acute hepatic encephalopathy ICD Codes: K72.00 - Acute and subacute hepatic failure without coma SNOMED: 52821104 (2) LFT elevation ICD Codes: R94.5 - Abnormal results of liver function studies SNOMED: 964096470 (3) History of alcoholism ICD Codes: F10.21 - Alcohol dependence, in remission SNOMED: 552929796 (4) Elevated CEA ICD Codes: R97.0 - Elevated carcinoembryonic antigen [CEA] SNOMED: 13938358, 961808509 (5) Anemia ICD Codes: D64.9 - Anemia, unspecified SNOMED: 503000195 Qualifiers: Qualified Codes: D64.9 - Anemia, unspecified (6) Dehydration ICD Codes: E86.0 - Dehydration SNOMED: 80787626 Status: unchanged Status Narrative Discussed with Dr. Bojorquez. Assessment/Plan Hep C positive OB stool positive ammonia WNL >> cont lactulose + Xifaxan monitor H&H, transfuse prn fu paracentesis, r/o SBP ppi propranolol, hold for SBP < 90 fu labs patient will be scheduled for pt for EGD/colonoscopy tomorrow. - CLD today, NPO @ CO. - hold all blood thinners Subjective Subjective limited Objective Last 24 Hour Vital Signs Date Time Temp Pulse Resp B/P Pulse Ox O2 Delivery O2 Flow Rate FiO2 09/25/16 09:44 83 118/62 09/25/16 08:12 98.1 88 19 135/76 100 09/25/16 04:20 97.3 82 17 128/78 93 Room Air 09/24/16 23:45 97.7 85 19 130/80 Room Air 09/24/16 20:52 100.0 75 17 145/69 59 Room Air 09/24/16 18:00 84 100/58 09/24/16 15:58 97.7 80 20 117/72 97 Room Air 09/24/16 11:46 97.2 88 21 115/66 98 Room Air Intake and Output 09/24/16 09/25/16 19:00 07:00 Intake Total 650 ml Output Total 275 ml Balance 375 ml Intake Oral 400 ml Blood Product 250 ml Output Urine Total 275 ml # Voids 3 2 # Bowel Movements 2 3 Laboratory Tests Test 09/24/16 20:00 09/25/16 05:05 Stool Occult Blood Positive (NEGATIVE) White Blood Count 5.0 K/UL (4.8-10.8) Red Blood Count 2.33 M/UL (4.70-6.10) L Hemoglobin 7.7 G/DL (14.2-18.0) L Hematocrit 23.6 % (42.0-52.0) L Mean Corpuscular Volume 101 FL (80-99) H Mean Corpuscular Hemoglobin 33.1 PG (27.0-31.0) H Mean Corpuscular Hemoglobin Concent 32.7 G/DL (32.0-36.0) Red Cell Distribution Width 21.0 % (11.6-14.8) H Platelet Count 56 K/UL (150-450) L Mean Platelet Volume 7.4 FL (6.5-10.1) Neutrophils (%) (Auto) % (45.0-75.0) Lymphocytes (%) (Auto) % (20.0-45.0) Monocytes (%) (Auto) % (1.0-10.0) Eosinophils (%) (Auto) % (0.0-3.0) Basophils (%) (Auto) % (0.0-2.0) Differential Total Cells Counted 100 Neutrophils % (Manual) 80 % (45-75) H Lymphocytes % (Manual) 14 % (20-45) L Monocytes % (Manual) 5 % (1-10) Eosinophils % (Manual) 1 % (0-3) Basophils % (Manual) 0 % (0-2) Band Neutrophils 0 % (0-8) Platelet Estimate Decreased L Platelet Morphology Normal Hypochromasia 1+ Anisocytosis 2+ Macrocytosis 1+ Prothrombin Time 18.3 SEC (9.30-11.50) H Prothromb Time International Ratio 1.8 (0.9-1.1) H Activated Partial Thromboplast Time 40 SEC (23-33) H Sodium Level 136 mEQ/L (135-145) Potassium Level 4.9 mEQ/L (3.4-4.9) Chloride Level 102 mEQ/L (98-107) Carbon Dioxide Level 22 mEQ/L (20-30) Anion Gap 12 (5-15) Blood Urea Nitrogen 43 mg/dL (7-23) H Creatinine 1.5 mg/dL (0.7-1.2) H Estimat Glomerular Filtration Rate 57.0 mL/min (>60) Glucose Level 92 mg/dL (74-106) Uric Acid 9.1 mg/dL (3.0-7.5) H Calcium Level 8.2 mg/dL (8.6-10.2) L Phosphorus Level 3.2 mg/dL (2.5-4.8) Magnesium Level 1.9 mg/dL (1.7-2.5) Total Bilirubin 2.6 mg/dL (0.0-1.2) H Direct Bilirubin 1.3 mg/dL (0.1-0.3) H Gamma Glutamyl Transpeptidase 29 U/L (8-61) Aspartate Amino Transf (AST/SGOT) 70 U/L (5-40) H Alanine Aminotransferase (ALT/SGPT) 11 U/L (3-41) Alkaline Phosphatase 111 U/L (40-129) Ammonia 53 umol/L (16-60) Total Creatine Kinase 98 U/L (38-174) C-Reactive Protein, Quantitative 1.8 mg/dL (< 0.5) H Pro-B-Type Natriuretic Peptide 305 pg/mL (0-125) H Total Protein 5.8 g/dL (6.6-8.7) L Albumin 1.4 g/dL (3.5-5.2) L Globulin 4.4 g/dL Albumin/Globulin Ratio 0.3 (1.0-2.7) L Vitamin B12 Level 1975 pg/mL (211-946) H Folate Pending Height (Feet): 6 Height (Inches): 2.00 Weight (Pounds): 232 General Appearance: no apparent distress, alert Cardiovascular: normal rate Respiratory/Chest: normal breath sounds, no respiratory distress Abdominal Exam: normal bowel sounds, non tender, soft Bren Palacios N.PSong September 25, 2016 11:28
[2016-09-25] MEDS ORDERED: Norco 5mg/325mg tab ORAL PRN ×2 (13:00→20:30)
[2016-09-25] MEDS ORDERED: Phytonadione 1 MG in D5W 55 ML IVPB ONE (15:00)
[2016-09-25] MEDS ORDERED: NS 550ML IV ONE (15:51)
[2016-09-25] MEDS ORDERED: Tubing Blood Filter IV ONE (15:51)
[2016-09-25] MEDS ORDERED: Bisacodyl EC 5mg tab ORAL ONE ×2 (16:00)
[2016-09-25] MEDS ORDERED: Nulytely 4L ORAL ONE ×2 (16:00)
--- NOTE | 2016-09-25 16:18 | Consultation ---
DATE OF CONSULTATION: 09/25/2016 REQUESTING PHYSICIAN: Shanita Oden M.D. CHIEF COMPLAINT: Status post left hip hemiarthroplasty. HISTORY OF PRESENT ILLNESS: The patient is a pleasant, 66-year-old gentleman who underwent a left hip hemiarthroplasty less than two weeks ago at [facility]. He subsequently was readmitted for anemia. There was some moderate drainage on the left hip incision. Therefore, orthopedic consultation was obtained for further care and recommendation of his left hip. PAST MEDICAL HISTORY: Reviewed from the intake chart. PAST SURGICAL HISTORY: Reviewed from the intake chart. MEDICATIONS: Reviewed from the intake chart. PHYSICAL EXAMINATION: The patient is alert. Left hip incision shows significantly sized incision. There is some drainage proximally. Posterior calf is soft. Neurovascular exam is normal. IMAGING STUDY: A left hip hemiarthroplasty with somewhat shortening of the leg length. ASSESSMENT: Status post left hip hemiarthroplasty. DISCUSSION: At this point, he has drainage on the incision site given his other medical comorbidities we continue to oniter this.. He is only on aspirin. At this point, what I recommend is continue to monitor the wound and go on twice a day dressing changes. He is currently only taking aspirin for DVT prophylaxis. We will continue to monitor his drainage. If he has continued issues, then ultimately may require I and D for possible subcutaneous or subfascial seroma. Georgi Dolan M.D. DR: RUBENS JOB#: [id number] CC: LEATHA
[2016-09-25 17:02] LABS: TROPONIN I < 0.30 ng/mL (<=0.30)
[2016-09-25] MEDS ORDERED: Lactulose 20gm/30ml UDC ORAL SCH ×2 (18:00)
[2016-09-25] MEDS ORDERED: Docusate 100mg cap ORAL SCH (18:00)
[2016-09-25] MEDS ORDERED: Rifaximin 550mg tab ORAL SCH (18:00)
[2016-09-25] MEDS ORDERED: DOPamine 400mg/250ml 250 ML IV SCH (18:30)
--- NOTE | 2016-09-25 19:05 | Consultation ---
Consult Note Consult Note ID Dic# [id number] CHAY DOMINGO M.D. September 25, 2016 19:05
--- NOTE | 2016-09-25 20:00 | General Progress Note ---
Assessment/Plan Assessment/Plan IMPRESSION: 1. Thrombocytopenia secondary to alcoholic liver cirrhosis. ok to continue asa, would hold off on coumadin and/or heparin sq 2. Alcoholic liver cirrhosis. 3. Anemia of bleeding diathesis from hip 4. 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 5. Acute left hip periprosthetic fracture s/p repair 6. History of alcohol abuse. 7. Dementia. 8. Psychosis. 9. Failure to thrive. RECOMMENDATIONS: -. SEND OFF DIC PANEL TODAY -. Prior admission and heme workup has been reviewed -. Ok to continue asa, would hold off on coumadin and/or heparin sq -. Watch counts, transfuse to hgb >8 (especially in light of bleeding diathesis and cirrhosis) -. Watch coagulopathy. -. Vitamin K prn -. Appreciate consultation! Subjective Constitutional: Reports: no symptoms HEENT: Reports: no symptoms Cardiovascular: Reports: no symptoms Respiratory: Reports: no symptoms Gastrointestinal/Abdominal: Reports: no symptoms Genitourinary: Reports: no symptoms Neurologic/Psychiatric: Reports: no symptoms Endocrine: Reports: no symptoms Hematologic/Lymphatic: Reports: anemia Allergies: Coded Allergies: No Known Allergies (Unverified , 09/06/16) Subjective hr 29, transferred to icu Objective Last 24 Hour Vital Signs Date Time Temp Pulse Resp B/P Pulse Ox O2 Delivery O2 Flow Rate FiO2 09/25/16 19:15 85 14 90/49 100 Room Air 09/25/16 19:00 86 8 110/56 100 Room Air 09/25/16 18:48 90/51 09/25/16 18:45 90 20 105/56 100 Room Air 09/25/16 18:30 60 19 98/56 99 Room Air 09/25/16 18:00 98.5 45 19 90/56 99 Room Air 09/25/16 17:30 50 09/25/16 15:37 97.1 78 20 118/82 100 Room Air 09/25/16 14:13 96.2 77 20 117/83 100 Room Air 09/25/16 12:52 44 09/25/16 11:49 97.5 42 19 80/43 95 09/25/16 09:44 83 118/62 09/25/16 08:12 98.1 88 19 135/76 100 09/25/16 04:20 97.3 82 17 128/78 93 Room Air 09/24/16 23:45 97.7 85 19 130/80 Room Air 09/24/16 20:52 100.0 75 17 145/69 59 Room Air Intake and Output 09/24/16 09/25/16 19:00 07:00 Intake Total 650 ml Output Total 275 ml Balance 375 ml Intake Oral 400 ml Blood Product 250 ml Output Urine Total 275 ml # Voids 3 2 # Bowel Movements 2 3 Laboratory Tests 09/24/16 20:00: Stool Occult Blood Positive 09/25/16 05:05: White Blood Count 5.0, Red Blood Count 2.33L, Hemoglobin 7.7L, Hematocrit 23.6L , Mean Corpuscular Volume 101H, Mean Corpuscular Hemoglobin 33.1H, Mean Corpuscular Hemoglobin Concent 32.7, Red Cell Distribution Width 21.0H, Platelet Count 56L, Mean Platelet Volume 7.4, Neutrophils (%) (Auto) , Lymphocytes (%) (Auto) , Monocytes (%) (Auto) , Eosinophils (%) (Auto) , Basophils (%) (Auto) , Differential Total Cells Counted 100, Neutrophils % ( Manual) 80H, Lymphocytes % (Manual) 14L, Monocytes % (Manual) 5, Eosinophils % ( Manual) 1, Basophils % (Manual) 0, Band Neutrophils 0, Platelet Estimate DecreasedL, Platelet Morphology Normal, Hypochromasia 1+, Anisocytosis 2+, Macrocytosis 1+, Prothrombin Time 18.3H, Prothromb Time International Ratio 1.8H , Activated Partial Thromboplast Time 40H, Sodium Level 136, Potassium Level 4.9 , Chloride Level 102, Carbon Dioxide Level 22, Anion Gap 12, Blood Urea Nitrogen 43H, Creatinine 1.5H, Estimat Glomerular Filtration Rate 57.0, Glucose Level 92, Uric Acid 9.1H, Calcium Level 8.2L, Phosphorus Level 3.2, Magnesium Level 1.9, Total Bilirubin 2.6H, Direct Bilirubin 1.3H, Gamma Glutamyl Transpeptidase 29, Aspartate Amino Transf (AST/SGOT) 70H, Alanine Aminotransferase (ALT/SGPT) 11, Alkaline Phosphatase 111, Ammonia 53, Total Creatine Kinase 98, C-Reactive Protein, Quantitative 1.8H, Pro-B-Type Natriuretic Peptide 305H, Total Protein 5.8L, Albumin 1.4L, Globulin 4.4, Albumin/Globulin Ratio 0.3L, Vitamin B12 Level 1975H, Folate [Pending] 09/25/16 15:50: Troponin I < 0.30 Height (Feet): 6 Height (Inches): 2.00 Weight (Pounds): 232 General Appearance: no apparent distress EENT: pharynx normal Neck: supple Cardiovascular: normal rate Respiratory/Chest: normal breath sounds Abdomen: no mass Pelvis: speculum exam normal Extremities: non-tender Edema: 1+ Leg (L), 1+ Leg (R) Neurologic: alert Skin: normal pigmentation Darren Snyder September 25, 2016 20:00
--- NOTE | 2016-09-25 20:19 | Cardiology Progress Note ---
Assessment/Plan Assessment/Plan The patient is seen and examined, full consult note is dictated. Objective Last 24 Hour Vital Signs Date Time Temp Pulse Resp B/P Pulse Ox O2 Delivery O2 Flow Rate FiO2 09/25/16 19:15 85 14 90/49 100 Room Air 09/25/16 19:00 86 8 110/56 100 Room Air 09/25/16 18:48 90/51 09/25/16 18:45 90 20 105/56 100 Room Air 09/25/16 18:30 60 19 98/56 99 Room Air 09/25/16 18:00 98.5 45 19 90/56 99 Room Air 09/25/16 17:30 50 09/25/16 15:37 97.1 78 20 118/82 100 Room Air 09/25/16 14:13 96.2 77 20 117/83 100 Room Air 09/25/16 12:52 44 09/25/16 11:49 97.5 42 19 80/43 95 09/25/16 09:44 83 118/62 09/25/16 08:12 98.1 88 19 135/76 100 09/25/16 04:20 97.3 82 17 128/78 93 Room Air 09/24/16 23:45 97.7 85 19 130/80 Room Air 09/24/16 20:52 100.0 75 17 145/69 59 Room Air Intake and Output 09/24/16 09/25/16 19:00 07:00 Intake Total 650 ml Output Total 275 ml Balance 375 ml Intake Oral 400 ml Blood Product 250 ml Output Urine Total 275 ml # Voids 3 2 # Bowel Movements 2 3 Laboratory Tests Test 09/25/16 05:05 09/25/16 15:50 White Blood Count 5.0 K/UL (4.8-10.8) Red Blood Count 2.33 M/UL (4.70-6.10) L Hemoglobin 7.7 G/DL (14.2-18.0) L Hematocrit 23.6 % (42.0-52.0) L Mean Corpuscular Volume 101 FL (80-99) H Mean Corpuscular Hemoglobin 33.1 PG (27.0-31.0) H Mean Corpuscular Hemoglobin Concent 32.7 G/DL (32.0-36.0) Red Cell Distribution Width 21.0 % (11.6-14.8) H Platelet Count 56 K/UL (150-450) L Mean Platelet Volume 7.4 FL (6.5-10.1) Neutrophils (%) (Auto) % (45.0-75.0) Lymphocytes (%) (Auto) % (20.0-45.0) Monocytes (%) (Auto) % (1.0-10.0) Eosinophils (%) (Auto) % (0.0-3.0) Basophils (%) (Auto) % (0.0-2.0) Differential Total Cells Counted 100 Neutrophils % (Manual) 80 % (45-75) H Lymphocytes % (Manual) 14 % (20-45) L Monocytes % (Manual) 5 % (1-10) Eosinophils % (Manual) 1 % (0-3) Basophils % (Manual) 0 % (0-2) Band Neutrophils 0 % (0-8) Platelet Estimate Decreased L Platelet Morphology Normal Hypochromasia 1+ Anisocytosis 2+ Macrocytosis 1+ Prothrombin Time 18.3 SEC (9.30-11.50) H Prothromb Time International Ratio 1.8 (0.9-1.1) H Activated Partial Thromboplast Time 40 SEC (23-33) H Sodium Level 136 mEQ/L (135-145) Potassium Level 4.9 mEQ/L (3.4-4.9) Chloride Level 102 mEQ/L (98-107) Carbon Dioxide Level 22 mEQ/L (20-30) Anion Gap 12 (5-15) Blood Urea Nitrogen 43 mg/dL (7-23) H Creatinine 1.5 mg/dL (0.7-1.2) H Estimat Glomerular Filtration Rate 57.0 mL/min (>60) Glucose Level 92 mg/dL (74-106) Uric Acid 9.1 mg/dL (3.0-7.5) H Calcium Level 8.2 mg/dL (8.6-10.2) L Phosphorus Level 3.2 mg/dL (2.5-4.8) Magnesium Level 1.9 mg/dL (1.7-2.5) Total Bilirubin 2.6 mg/dL (0.0-1.2) H Direct Bilirubin 1.3 mg/dL (0.1-0.3) H Gamma Glutamyl Transpeptidase 29 U/L (8-61) Aspartate Amino Transf (AST/SGOT) 70 U/L (5-40) H Alanine Aminotransferase (ALT/SGPT) 11 U/L (3-41) Alkaline Phosphatase 111 U/L (40-129) Ammonia 53 umol/L (16-60) Total Creatine Kinase 98 U/L (38-174) C-Reactive Protein, Quantitative 1.8 mg/dL (< 0.5) H Pro-B-Type Natriuretic Peptide 305 pg/mL (0-125) H Total Protein 5.8 g/dL (6.6-8.7) L Albumin 1.4 g/dL (3.5-5.2) L Globulin 4.4 g/dL Albumin/Globulin Ratio 0.3 (1.0-2.7) L Vitamin B12 Level 1975 pg/mL (211-946) H Folate Pending Troponin I < 0.30 ng/mL (<=0.30) ASHLEY URIBE September 25, 2016 20:18
[2016-09-25] MEDS ORDERED: Sodium Chloride 550 ML IV PRN (20:30)
[2016-09-25] MEDS ORDERED: Tamsulosin 0.4mg cap ORAL SCH ×2 (21:00)
[2016-09-25 21:30] LABS: MEAN CORPUSCULAR HEMOGLOBIN 35.2 PG (27.0-31.0); MEAN CORPUSCULAR HGB CONC 34.3 G/DL (32.0-36.0); MEAN CORPUSCULAR VOLUME 103 FL (80-99); PLATELET COUNT 72 K/UL (150-450); RED BLOOD COUNT 2.45 M/UL (4.70-6.10); RED CELL DISTRIBUTION WIDTH 21.5 % (11.6-14.8); WHITE BLOOD COUNT 9.5 K/UL (4.8-10.8)
[2016-09-25 21:50] LABS: INR 1.6 (0.9-1.1); PROTHROMBIN TIME 16.7 SEC (9.30-11.50)
[2016-09-25 22:03] LABS: BILIRUBIN,DIRECT 1.6 mg/dL (0.1-0.3)
[2016-09-25 22:11] LABS: ALBUMIN/GLOBULIN RATIO 0.3 (1.0-2.7); CALCIUM 8.2 mg/dL (8.6-10.2); CREATININE 1.6 mg/dL (0.7-1.2); GLOMERULAR FILTRATION RATE 52.8 mL/min (>60)
[2016-09-25 22:24] LABS: BILIRUBIN,DIRECT 1.6 mg/dL (0.1-0.3)
--- NOTE | 2016-09-25 22:29 | Consultation ---
DATE OF CONSULTATION: 09/25/2016 PAIN MANAGEMENT CONSULTATION: CONSULTING PHYSICIAN: Shanita Oden M.D. REQUESTING PHYSICIAN: Quinton Donald M.D. CHIEF COMPLAINT: Left hip pain. HISTORY OF PRESENT ILLNESS: This is a 66-year-old male, who is being seen on the medical/surgical floor of [facility] for initial pain management. The patient is confused due to dementia and also has alcoholic cirrhosis, and unable to give a complete history. Most of the information is received from the chart and nurse. At this time, the patient is in pain with movement and has a surgical wound with josué applied into the left hip, drainage seen, on Dilaudid 1 mg IV every four hours as needed for severe pain and Lucien 5/325 mg one tablet every four hours as needed for moderate pain. He has not received the medication over the time due to anemia and we were consulted, so the patient adequate control, while here in hospital. PAST MEDICAL HISTORY: Depression, dementia, alcoholism, and anemia. PAST SURGICAL HISTORY: Left hip surgery. ALLERGIES: No known drug allergies. MEDICATIONS: Tylenol, aspirin, calcium, vitamin D, Lexapro, ferrous sulfate, Lucien, and rifaximin. SOCIAL HISTORY: Alcoholism. Denies smoking and IV drug abuse. REVIEW OF SYSTEMS: Unable to obtain due to the patient's mental status, but just complains of left hip pain. PHYSICAL EXAMINATION: GENERAL: Alert and awake. VITAL SIGNS: Blood pressure is 135/76, heart rate 88, oxygen saturation 100%, respiratory rate 19, and temperature 98.1 degrees Fahrenheit. HEENT: PERRLA. NECK: Range of motion is full in all directions. No tenderness to paracervical muscles. LUNGS: Clear. HEART: Regular. ABDOMEN: Distended. BACK: Range of motion is decreased in flexion and extension. EXTREMITIES: Upper extremity motion is full in all directions. Motor is intact. No cyanosis. No clubbing. No edema. Sensory is intact. Reflexes are not obtainable. No adenopathy. Lower extremity motion is decreased over the left hip. Josué are seen over the surgical wound. Drainage noted. Tenderness to palpation. ASSESSMENT AND PLAN: This is a 66-year-old male with dementia, left hip fracture, and left hip pain, status post mechanical fall and status post hemiarthroplasty of left hip. The patient will be continued on Dilaudid 1 mg IV every four hours for severe pain, hold for oversedation and Lucien 5/325 mg every four hours for moderate pain. The patient was discussed with Dr. Donald and Dr. Donald concurred. We will follow the patient. Thank you very much for the courtesy of this consultation. Shanita Oden M.D. KAY aRtliff DR: Don JOB#: [id number] CC:
[2016-09-25 22:37] LABS: BASOPHILS % (MANUAL) 1 % (0-2); EOSINOPHILS % (MANUAL) 2 % (0-3); HYPOCHROMASIA 2+; LYMPHOCYTES % (MANUAL) 9 % (20-45); NEUTROPHILS % (MANUAL) 82 % (45-75); TOTAL CELLS COUNTED 100
[2016-09-25 22:38] LABS: ANISOCYTOSIS 2+; BAND NEUTROPHILS % (MANUAL) 0 % (0-8); MACROCYTES 2+; PLATELET ESTIMATE DECREASED; PLATELET MORPHOLOGY NORMAL; POLYCHROMASIA 1+
[2016-09-25 22:39] LABS: PATH BLOOD SMEAR/OMC SENT TO PATHOLOGIST
--- NOTE | 2016-09-25 22:59 | Consultation ---
DATE OF CONSULTATION: 09/25/2016 CONSULTING PHYSICIAN: Rufino Ng M.D. REFERRING PHYSICIAN: Shanita Oden M.D. REASON FOR CONSULTATION: Evaluation of urinary retention. HISTORY OF PRESENT ILLNESS: This is a 66-year-old gentleman. He was admitted to the hospital because of oozing from the wound from recent hip surgery. Today he was noted to have difficulty voiding. Bladder scan showed residual of 400 mL. Carter catheter was placed. Urology evaluation requested. The patient is a poor historian. Most of the history was obtained from the chart. Apparently does have a history of BPH. PAST MEDICAL HISTORY: Significant for depression, hypertension, dementia, alcoholism, anemia, BPH. PAST SURGICAL HISTORY: Hip surgery. CURRENT MEDICATIONS: In the hospital, the patient is on vitamin C, Ecotrin, Drisdol, Lexapro, Protonix, Dulcolax, Zyprexa, Flomax, Colace, Xifaxan, Tylenol, and [place]. ALLERGIES: No known drug allergies. SOCIAL HISTORY: Resident of senior care. REVIEW OF SYSTEMS: Difficult to obtain. FAMILY HISTORY: Unable to obtain. PHYSICAL EXAMINATION: GENERAL: This is an elderly male. VITAL SIGNS: Temperature is 97.1, blood pressure is 118/82. ABDOMEN: Soft. Carter in place. Urine is [place]. LABORATORY DATA: INR is 1.8. White count 5.0, hemoglobin 10.7, BUN 43, creatinine 1.5. His creatinine was 1.7 on admission. UA showed 2+ protein, 2 to 4 WBCs, too numerous to count RBCs. DIAGNOSTIC IMAGING STUDIES: The patient had a pelvic CT scan in August, at that time there was left hip hemiarthroplasty noted. Fracture was noted. IMPRESSION: 1. Urinary retention. 2. Benign prostatic hypertrophy. 3. Possible neurogenic bladder. 4. Hematuria. 5. Pyuria. 6. Proteinuria. 7. Renal insufficiency which is acute on chronic. PLAN AND DISCUSSION: The patient's Carter catheter remained indwelling. He is to continue with Flomax as ordered. Finasteride 5 mg will be added and can have a voiding trial when he is more medically stable, more alert and ambulatory. He has had some labile blood pressure and we may have to hold Flomax. He will need to have cystoscopy at some point to complete the workup. Thank you, Dr. Oden , for asking me to see this patient in consultation Rufino Ng M.D. DR: Erin JOB#: [id number] CC:
--- NOTE | 2016-09-25 22:59 | Consultation ---
DATE OF CONSULTATION: INFECTIOUS DISEASE CONSULTATION CONSULTING PHYSICIAN: Marcos Ricketts M.D. REFERRING PHYSICIAN: Shanita Oden M.D. REASON FOR CONSULTATION: Evaluation of the patient for possible sepsis due to hypotension. HISTORY OF PRESENT ILLNESS: The patient is a 66-year-old male with multiple medical problems, who was admitted to this medical center for weakness and anemia. The patient developed hypotension and bradycardia and was transferred to intensive care unit. The patient has been started on dopamine. Infectious Disease consultation requested for further evaluation of the patient's antibiotic management. PAST MEDICAL HISTORY: 1. Depression. 2. Hypotension. 3. Dementia. 4. Alcohol . 5. Anemia. 6. History of left hip surgery four months ago. ALLERGIES: No known drug allergies. SOCIAL HISTORY: The patient has a history of alcohol abuse. FAMILY HISTORY: Noncontributory. REVIEW OF SYSTEMS: HEENT: No recent change in vision or hearing. Pulmonary: No cough or shortness of breath. Cardiovascular: No chest pain or palpitation. Gastrointestinal: Distended abdomen. Extremities: No cyanosis. Pelvic: The patient left hip surgery staple is oozing blood. PHYSICAL EXAMINATION: VITAL SIGNS: Temperature is 97, blood pressure 118/82, pulse 86, and respiratory rate 18. HEENT: Mild pale conjunctivae. No icterus. NECK: Supple. CHEST: Coarse breathing sounds. HEART: S1 and S2. ABDOMEN: Distended. No tenderness. LABORATORY AND DIAGNOSTIC DATA: BUN 43, creatinine 1.5. AST 70, ALT 11, and alkaline phosphatase 111. Hepatitis C antibody is positive. HIV test is negative. Rectum is positive. CT of the pelvis, left hip hemiarthroplasty, fracture of intertrochanteric region of the femur, soft tissue swelling, hematoma, and ascites. ASSESSMENT: The patient is a 66-year-old male with multiple medical problems as listed above, who was admitted with anemia, appears to be secondary to bleeding from the surgical site. The patient developed hypotension due to bradycardia. There is no abdominal tenderness, doubt spontaneous bacterial peritonitis, however, if the patient's blood pressure does not improve, we may consider treatment with empiric antibiotics for possible spontaneous bacterial peritonitis while we are waiting for paracentesis. Also, the patient will benefit from panculture. There is no evidence of surgical site infection at this time. PLAN: 1. We will monitor the patient off of antibiotics. 2. Monitor CBC. 3. Monitor BMP. 4. Monitor cultures of the blood and urine. 5. Paracentesis when the patient is more stable. 6. If the patient does not improve, clinically we will start the patient on intravenous Rocephin empirically. Thank you, Dr. Castro, for allowing me to participate in the care of this patient. I will follow the patient with you during this hospitalization. Marcos Ricketts M.D. DR: JOEY JOB#: [id number] CC:
[2016-09-25] MEDS ORDERED: Fleet's Enema 133ml RECTAL ONE ×3 (23:00)
[2016-09-26] VITALS (31 sets, daily range): BP systolic 90–130; BP diastolic 47–95
--- NOTE | 2016-09-26 00:38 | Consultation ---
DATE OF CONSULTATION: 09/25/2016 CARDIOLOGY CONSULTATION REFERRING PHYSICIAN: Shanita Oden M.D. REASON FOR CONSULTATION: Management of profound bradyarrhythmia. HISTORY OF PRESENT ILLNESS: The patient is a very unfortunate 66-year-old gentleman, who [facility], who was brought to this facility for abnormal laboratories including low hemoglobin and hematocrit with no signs of active bleeding. The patient was recently seen in this facility after an episode of fall, which was not associated with presyncope or syncopal event. At the time of the fall, he injured his left hip, which was complicated as he has already had a left hemiarthroplasty of the hip not too long prior to that event. As Dr. Dolan decided that the open reduction and internal fixation of this hip is complicated, the patient was transferred to [facility] for surgical procedure and was accordingly discharged after the procedure. The patient was readmitted to this facility on 09/24/2016 with the complaints as mentioned above to Med/Surg unit. The patient developed bradycardia and therefore was transferred to telemetry unit. I received a call from the nurse that the patient is running profound sinus bradycardia in the upper 20s and low 80s. There is also pauses of around 2 seconds and junctional escaped beats. A 12-lead electrocardiogram stat revealed junctional rhythm at rate of 42. The nurse was advised to transfer the patient to intensive care unit and to initiate a dopamine drip at 5 mcg/kg/min. Of note, the previous admission prior to the surgical procedure of the hip, he had been started on propranolol in view of the tachycardia and also history of liver cirrhosis. PAST MEDICAL HISTORY: Includes hepatic encephalopathy, liver cirrhosis, anemia, gastroesophageal reflux disease, history of depression, history of bipolar disorder, status post left hemiarthroplasty, which underwent revision following the fall and fracture around the hardware, which was done 2 weeks ago at [facility]. PAST SURGICAL HISTORY: Left hip hemiarthroplasty and status post revision following fracture around the hardware done at [facility] by Dr. Dolan. MEDICATIONS: At nursing facility, acetaminophen 650 mg q.4 hours, vitamin C 500 mg p.o. daily, aspirin 81 mg p.o. daily, Dulcolax 10 mg rectal p.r.n. constipation, calcium carbonate 500 mg twice daily, Santyl 1 application once daily, Colace 100 mg p.o. twice daily, Lexapro 10 mg p.o. daily, ferrous sulfate 325 mg twice daily, hydrocodone and acetaminophen 5-325 mg one tablet q.4 hours p.r.n. pain, Dilaudid 1 mg IV push q.4 hours p.r.n. severe pain, lactulose 15 mL p.o. daily p.r.n. constipation, 10 mg p.o. t.i.d., milk of magnesia 30 mL p.o. daily p.r.n. constipation, Fleet enema 133 mL rectal p.r.n. constipation, Zyprexa 5 mg p.o. q.h.s., pantoprazole 40 mg before breakfast, propranolol 20 mg 4 times daily, Xifaxan 550 mg twice daily, Senna 8.6 mg p.o. daily, spironolactone hydrochlorothiazide 25-25 mg one tablet p.o. daily, Aldactone 50 mg p.o. daily, vitamin D3 50,000 units p.o. q.weekly, and zinc 50 mg p.o. daily. REVIEW OF SYSTEMS: Twelve systems review were done essentially negative except what I mentioned in history of present illness. PHYSICAL EXAMINATION: VITAL SIGNS: Blood pressure 90/49, heart rate of 85, respirations of 14, and O2 saturation 100%. Prior to the arrival to intensive care unit, heart rate was 45, respiratory rate of 19, blood pressure 90/56, pulse ox of 99% on room air and temperature 98.5 degrees Fahrenheit. GENERAL: The patient is a very unfortunate 66-year-old gentleman, alert and awake, in no apparent respiratory distress. HEENT: Atraumatic and normocephalic. Anicteric. Pupils are equal, round, and reactive to light and accommodation. Extraocular muscles intact. NECK: JVP is 5 cm, but no carotid bruit. Carotid upstrokes 2+ bilaterally. CARDIOVASCULAR: Normal S1 and S2. Regular rate and rhythm. A 2/6 mid systolic murmur left sternal border. PMI is at fourth intercostal space in the midclavicular line. LUNGS: Diminished breath sounds at both bases. ABDOMEN: Distended with ascites. Positive shifting dullness. EXTREMITIES: There is 1+ to 3+ edema bilaterally. LABORATORY AND DIAGNOSTIC DATA: WBC is 9.9, hemoglobin 7.6, hematocrit 32.9, and platelet counts 80,000. Sodium 136, potassium 4.9, chloride 102, bicarbonate 22, BUN of 43, creatinine 1.5, and glucose 92. Calcium is 8.2. Troponin I is less than 0.3. ProBNP is 305. ECG shows junctional rhythm at rate of 42, with no ST and T-wave abnormalities. ASSESSMENT AND PLAN: The patient is a very pleasant 66-year-old gentleman seen in Cardiology consultation for bradyarrhythmias. 1. Junctional rhythm heart rate of 42. The patient was transferred to intensive care unit of [facility] for dopamine drip, which was started at 5 microgram/kilograms/per minute. He responded to this therapy and currently as sinus rhythm at a rate of 64. We will continue the dopamine to ensure that we are keeping the heart rate at about 65. Electrophysiology consultation with Dr. Eden for possible pacemaker implantation. The patient is currently hemodynamically stable with dopamine 5 micrograms. Recent 2D echocardiography has shown normal LV systolic function with LVEF of 60% to 65%, mild left ventricular hypertrophy and normal pulmonary artery pressure. 2. Status post open reduction and internal fixation of left hip at [facility] around two weeks ago. 3. History of hypertension. Currently hypotensive. Off propranolol from 09/24/2016. 4. History of liver cirrhosis. 5. Total amount of time spent in evaluation and management of this patient in the intensive care unit of [facility] was 45 minutes. I would like to thank, Dr. Oden for allowing me to participate in the care of this patient. Wilner Mcnair M.D. DR: MELVA JOB#: [id number] CC:
[2016-09-26 06:01] LABS: MEAN CORPUSCULAR HEMOGLOBIN 33.7 PG (27.0-31.0); MEAN CORPUSCULAR HGB CONC 32.9 G/DL (32.0-36.0); MEAN CORPUSCULAR VOLUME 103 FL (80-99); MEAN PLATELET VOLUME 6.9 FL (6.5-10.1); PLATELET COUNT 67 K/UL (150-450); WHITE BLOOD COUNT 6.7 K/UL (4.8-10.8)
[2016-09-26 06:23] LABS: INR 1.7 (0.9-1.1); PROTHROMBIN TIME 17.1 SEC (9.30-11.50)
[2016-09-26 06:31] LABS: ALBUMIN/GLOBULIN RATIO 0.2 (1.0-2.7); CALCIUM 8.3 mg/dL (8.6-10.2); CREATININE 1.7 mg/dL (0.7-1.2); GLOMERULAR FILTRATION RATE 49.3 mL/min (>60); POTASSIUM 5.3 mEQ/L (3.4-4.9)
[2016-09-26 07:07] LABS: BILIRUBIN,DIRECT 1.3 mg/dL (0.1-0.3)
--- NOTE | 2016-09-26 07:41 | Urology Progress Note ---
Assessment/Plan Assessment/Plan 1. Urinary retention. 2. Benign prostatic hypertrophy. 3. Possible neurogenic bladder. 4. Hematuria. 5. Pyuria. 6. Proteinuria. 7. Renal insufficiency which is acute on chronic. weeks indwelling flomax, may need to hold if BP low proscar monitor renal fxn voiding trial later Subjective Allergies: Coded Allergies: No Known Allergies (Unverified , 09/06/16) Subjective all noted, feels fair Objective Last 24 Hour Vital Signs Date Time Temp Pulse Resp B/P Pulse Ox O2 Delivery O2 Flow Rate FiO2 09/26/16 07:00 71 15 106/65 94 Room Air 09/26/16 06:30 74 14 108/74 100 Room Air 09/26/16 06:00 71 10 126/70 100 Room Air 09/26/16 05:30 73 18 115/95 92 Room Air 09/26/16 05:00 71 14 102/66 97 Room Air 09/26/16 04:30 71 17 99/59 100 Room Air 09/26/16 04:00 97.9 66 16 99/59 99 Room Air 09/26/16 03:30 73 15 107/69 98 Room Air 09/26/16 03:00 71 15 96/69 98 Room Air 09/26/16 02:30 69 11 90/53 99 Room Air 09/26/16 02:00 71 9 101/59 96 Room Air 09/26/16 01:30 71 10 103/56 97 Room Air 09/26/16 01:00 70 9 107/65 99 Room Air 09/26/16 00:30 71 11 98/66 99 Room Air 09/26/16 00:00 69 09/26/16 00:00 98.5 73 16 97/47 100 Room Air 09/25/16 23:30 63 11 95/44 99 Room Air 09/25/16 23:00 68 15 116/64 100 Room Air 09/25/16 22:30 59 13 95/64 99 Room Air 09/25/16 22:00 66 10 123/60 100 Room Air 09/25/16 21:30 73 16 105/61 100 Room Air 09/25/16 21:15 69 17 123/97 100 Room Air 09/25/16 21:00 71 16 112/66 100 Room Air 09/25/16 20:45 73 17 107/60 100 Room Air 09/25/16 20:30 58 14 87/57 100 Room Air 09/25/16 20:15 56 15 94/54 100 Room Air 09/25/16 20:00 65 09/25/16 20:00 116/63 09/25/16 20:00 98.1 68 10 119/83 100 Room Air 09/25/16 19:45 59 14 116/63 100 Room Air 09/25/16 19:30 62 15 103/77 100 Room Air 09/25/16 19:15 85 14 90/49 100 Room Air 09/25/16 19:00 86 8 110/56 100 Room Air 09/25/16 18:48 90/51 09/25/16 18:45 90 20 105/56 100 Room Air 09/25/16 18:30 60 19 98/56 99 Room Air 09/25/16 18:00 98.5 45 19 90/56 99 Room Air 09/25/16 17:30 50 09/25/16 15:37 97.1 78 20 118/82 100 Room Air 09/25/16 14:13 96.2 77 20 117/83 100 Room Air 09/25/16 12:52 44 09/25/16 11:49 97.5 42 19 80/43 95 09/25/16 09:44 83 118/62 09/25/16 08:12 98.1 88 19 135/76 100 Intake and Output 09/25/16 09/26/16 19:00 07:00 Intake Total 280 ml 374.665 ml Output Total 650 ml 550 ml Balance -370 ml -175.335 ml Intake Oral 280 ml IV Total 244.665 ml Other 130 ml Output Urine Total 650 ml 550 ml # Bowel Movements 4 Current Medications Medications (Trade) Dose Ordered Sig/Carolynn Route PRN Reason Start Time Stop Time Status Last Admin Dose Admin Acetaminophen (Tylenol) 650 mg Q4H PRN ORAL Mild Pain/Temp > 100.5 09/25/16 20:00 10/25/16 19:59 Acetaminophen/ Hydrocodone Bitart ([place] 5/325) 1 tab Q4H PRN ORAL Moderate Pain (Pain Scale 4-6) 09/25/16 20:30 10/02/16 20:29 Ascorbic Acid (Vitamin C) 500 mg DAILY ORAL 09/26/16 09:00 10/26/16 08:59 Aspirin (Ecotrin) 81 mg DAILY ORAL 09/26/16 09:00 10/26/16 08:59 Bisacodyl (Dulcolax) 10 mg DAILYPRN PRN RECTAL Constipation 09/25/16 21:00 10/25/16 20:59 Docusate Sodium (Colace) 100 mg TWICE A DAY ORAL 09/26/16 09:00 10/26/16 08:59 Dopamine HCl/ Dextrose (DOPamine 400mg/ 250ml) 250 ml @ 0 mls/hr Q24H IV 09/26/16 20:00 10/26/16 19:59 09/25/16 20:00 Ergocalciferol (Drisdol) 50,000 intlu MoTh ORAL 09/26/16 09:00 10/26/16 08:59 Escitalopram Oxalate (Lexapro) 20 mg DAILY ORAL 09/26/16 09:00 10/26/16 08:59 Lactulose (Cephulac) 30 gm BID ORAL 09/26/16 09:00 10/26/16 08:59 Olanzapine (ZyPREXA) 5 mg BEDTIME ORAL 09/25/16 21:00 10/25/16 20:59 09/25/16 20:48 Pantoprazole (Protonix) 40 mg DAILY IVP 09/26/16 09:00 10/26/16 08:59 Rifaximin (Xifaxan) 550 mg TWICE A DAY ORAL 09/26/16 09:00 10/03/16 08:59 Sodium Chloride (NS) 550 ml @ 0 mls/hr Q0M PRN IV PRN SBP < 95 09/25/16 20:30 10/25/16 20:29 Tamsulosin HCl 0.4 mg 0.4 mg BEDTIME ORAL 09/25/16 21:00 10/25/16 20:59 09/25/16 20:48 Laboratory Tests 09/25/16 10:15: Reticulocyte Count 2.6H, Sodium Level 132L, Potassium Level 5.0H, Chloride Level 100, Carbon Dioxide Level 19L, Anion Gap 13, Blood Urea Nitrogen 43H, Creatinine 1.6H, Estimat Glomerular Filtration Rate 52.8, Glucose Level 116H, Calcium Level 8.2L, Total Bilirubin 2.9H, Direct Bilirubin 1.6H, Aspartate Amino Transf (AST/SGOT) 80H, Alanine Aminotransferase (ALT/SGPT) 13, Alkaline Phosphatase 108, Ammonia 54, Total Protein 6.0L, Albumin 1.5L, Globulin 4.5, Albumin/Globulin Ratio 0.3L, Vitamin B12 Level 1819H, Hepatitis A IgM Antibody [ Pending], Hepatitis B Surface Antigen [Pending], Hepatitis B Core IgM Antibody [ Pending], Hepatitis C Antibody [Pending], HIV (1&2) Antibody Rapid Negative 09/25/16 15:50: Troponin I < 0.30 09/25/16 21:00: Total Bilirubin 3.0H, Direct Bilirubin 1.6H, White Blood Count 9.5#, Red Blood Count 2.45L, Hemoglobin 8.6L, Hematocrit 25.1L, Mean Corpuscular Volume 103H, Mean Corpuscular Hemoglobin 35.2H, Mean Corpuscular Hemoglobin Concent 34.3, Red Cell Distribution Width 21.5H, Platelet Count 72L, Mean Platelet Volume 6.0L , Neutrophils (%) (Auto) , Lymphocytes (%) (Auto) , Monocytes (%) (Auto) , Eosinophils (%) (Auto) , Basophils (%) (Auto) , Differential Total Cells Counted 100, Neutrophils % (Manual) 82H, Lymphocytes % (Manual) 9L, Monocytes % (Manual) 6, Eosinophils % (Manual) 2, Basophils % (Manual) 1, Band Neutrophils 0 , Platelet Estimate DecreasedL, Platelet Morphology Normal, Polychromasia 1+, Hypochromasia 2+, Anisocytosis 2+, Macrocytosis 2+, Haptoglobin < 29L, Prothrombin Time 16.7H, Prothromb Time International Ratio 1.6H, Fibrinogen 152L , Urine Random Sodium < 10 09/26/16 04:45: Sodium Level 132L, Potassium Level 5.3H, Chloride Level 102, Carbon Dioxide Level 21, Anion Gap 9, Blood Urea Nitrogen 45H, Creatinine 1.7H, Estimat Glomerular Filtration Rate 49.3, Glucose Level 114H, Calcium Level 8.3L, Total Bilirubin 2.7H, Direct Bilirubin 1.3H, Aspartate Amino Transf (AST/SGOT) 79H, Alanine Aminotransferase (ALT/SGPT) 14, Alkaline Phosphatase 108, Total Protein 6.0L, Albumin 1.3L, Globulin 4.7, Albumin/Globulin Ratio 0.2L, White Blood Count 6.7, Red Blood Count 2.50L, Hemoglobin 8.4L, Hematocrit 25.7L, Mean Corpuscular Volume 103H, Mean Corpuscular Hemoglobin 33.7H, Mean Corpuscular Hemoglobin Concent 32.9, Red Cell Distribution Width 22.0H, Platelet Count 67L, Mean Platelet Volume 6.9, Neutrophils (%) (Auto) , Lymphocytes (%) (Auto) , Monocytes (%) (Auto) , Eosinophils (%) (Auto) , Basophils (%) (Auto) , Neutrophils % (Manual) [Pending], Lymphocytes % (Manual) [Pending], Platelet Estimate [Pending], Platelet Morphology [Pending], Prothrombin Time 17.1H, Prothromb Time International Ratio 1.7H, Activated Partial Thromboplast Time 38H Height (Feet): 6 Height (Inches): 2.00 Weight (Pounds): 232 Objective exam stable MESHA TRUONG September 26, 2016 07:41
[2016-09-26] MEDS: DOPamine 400mg/250ml 250 ML IV SCH ×2 (08:16→20:06)
[2016-09-26] MEDS: Lactulose 20gm/30ml UDC ORAL SCH ×2 (08:20→17:56)
[2016-09-26] MEDS: Pantoprazole Inj IVP SCH (08:20)
[2016-09-26] MEDS: Aspirin EC 81mg tab ORAL SCH (08:21)
[2016-09-26] MEDS: Docusate 100mg cap ORAL SCH ×2 (08:21→17:56)
[2016-09-26] MEDS: Ascorbic Acid 500mg tab ORAL SCH (08:22)
[2016-09-26] MEDS: Rifaximin 550mg tab ORAL SCH ×2 (08:22→17:56)
--- NOTE | 2016-09-26 08:26 | General Progress Note ---
Assessment/Plan Assessment/Plan (1) Dementia (2) S/p Mechanical fall (3) Left hip Fracture (4) Left hip pain (5) S/p Left hip hemiarthroplasty Patient will be continued on [place] as needed. Parameters to hold opioids for oversedation or SBP <90 or DBP <60. D/w Dr. Donald and he concurred. Subjective Date patient seen: September 26, 2016 Time patient seen: 07:30 - am Allergies: Coded Allergies: No Known Allergies (Unverified , 09/06/16) Subjective REVIEW OF SYSTEMS: Unable to obtain due to the patient's mental status SUBJECTIVE: Patient was transferred to ICU due to Hypotension caused by anemia. At this time patient is in bed no signs of pain or distress. Dilaudid was discontinued and Parameters were set to hold opioids. Objective Last 24 Hour Vital Signs Date Time Temp Pulse Resp B/P Pulse Ox O2 Delivery O2 Flow Rate FiO2 09/26/16 08:16 90/52 09/26/16 07:00 71 15 106/65 94 Room Air 09/26/16 06:30 74 14 108/74 100 Room Air 09/26/16 06:00 71 10 126/70 100 Room Air 09/26/16 05:30 73 18 115/95 92 Room Air 09/26/16 05:00 71 14 102/66 97 Room Air 09/26/16 04:30 71 17 99/59 100 Room Air 09/26/16 04:00 97.9 66 16 99/59 99 Room Air 09/26/16 03:30 73 15 107/69 98 Room Air 09/26/16 03:00 71 15 96/69 98 Room Air 09/26/16 02:30 69 11 90/53 99 Room Air 09/26/16 02:00 71 9 101/59 96 Room Air 09/26/16 01:30 71 10 103/56 97 Room Air 09/26/16 01:00 70 9 107/65 99 Room Air 09/26/16 00:30 71 11 98/66 99 Room Air 09/26/16 00:00 69 09/26/16 00:00 98.5 73 16 97/47 100 Room Air 09/25/16 23:30 63 11 95/44 99 Room Air 09/25/16 23:00 68 15 116/64 100 Room Air 09/25/16 22:30 59 13 95/64 99 Room Air 09/25/16 22:00 66 10 123/60 100 Room Air 09/25/16 21:30 73 16 105/61 100 Room Air 09/25/16 21:15 69 17 123/97 100 Room Air 09/25/16 21:00 71 16 112/66 100 Room Air 09/25/16 20:45 73 17 107/60 100 Room Air 09/25/16 20:30 58 14 87/57 100 Room Air 09/25/16 20:15 56 15 94/54 100 Room Air 09/25/16 20:00 65 09/25/16 20:00 116/63 09/25/16 20:00 98.1 68 10 119/83 100 Room Air 09/25/16 19:45 59 14 116/63 100 Room Air 09/25/16 19:30 62 15 103/77 100 Room Air 09/25/16 19:15 85 14 90/49 100 Room Air 09/25/16 19:00 86 8 110/56 100 Room Air 09/25/16 18:48 90/51 09/25/16 18:45 90 20 105/56 100 Room Air 09/25/16 18:30 60 19 98/56 99 Room Air 09/25/16 18:00 98.5 45 19 90/56 99 Room Air 09/25/16 17:30 50 09/25/16 15:37 97.1 78 20 118/82 100 Room Air 09/25/16 14:13 96.2 77 20 117/83 100 Room Air 09/25/16 12:52 44 09/25/16 11:49 97.5 42 19 80/43 95 09/25/16 09:44 83 118/62 Intake and Output 09/25/16 09/26/16 19:00 07:00 Intake Total 280 ml 374.665 ml Output Total 650 ml 550 ml Balance -370 ml -175.335 ml Intake Oral 280 ml IV Total 244.665 ml Other 130 ml Output Urine Total 650 ml 550 ml # Bowel Movements 4 Laboratory Tests 09/25/16 10:15: Reticulocyte Count 2.6H, Sodium Level 132L, Potassium Level 5.0H, Chloride Level 100, Carbon Dioxide Level 19L, Anion Gap 13, Blood Urea Nitrogen 43H, Creatinine 1.6H, Estimat Glomerular Filtration Rate 52.8, Glucose Level 116H, Calcium Level 8.2L, Total Bilirubin 2.9H, Direct Bilirubin 1.6H, Aspartate Amino Transf (AST/SGOT) 80H, Alanine Aminotransferase (ALT/SGPT) 13, Alkaline Phosphatase 108, Ammonia 54, Total Protein 6.0L, Albumin 1.5L, Globulin 4.5, Albumin/Globulin Ratio 0.3L, Vitamin B12 Level 1819H, Hepatitis A IgM Antibody [ Pending], Hepatitis B Surface Antigen [Pending], Hepatitis B Core IgM Antibody [ Pending], Hepatitis C Antibody [Pending], HIV (1&2) Antibody Rapid Negative 09/25/16 15:50: Troponin I < 0.30 09/25/16 21:00: Total Bilirubin 3.0H, Direct Bilirubin 1.6H, White Blood Count 9.5#, Red Blood Count 2.45L, Hemoglobin 8.6L, Hematocrit 25.1L, Mean Corpuscular Volume 103H, Mean Corpuscular Hemoglobin 35.2H, Mean Corpuscular Hemoglobin Concent 34.3, Red Cell Distribution Width 21.5H, Platelet Count 72L, Mean Platelet Volume 6.0L , Neutrophils (%) (Auto) , Lymphocytes (%) (Auto) , Monocytes (%) (Auto) , Eosinophils (%) (Auto) , Basophils (%) (Auto) , Differential Total Cells Counted 100, Neutrophils % (Manual) 82H, Lymphocytes % (Manual) 9L, Monocytes % (Manual) 6, Eosinophils % (Manual) 2, Basophils % (Manual) 1, Band Neutrophils 0 , Platelet Estimate DecreasedL, Platelet Morphology Normal, Polychromasia 1+, Hypochromasia 2+, Anisocytosis 2+, Macrocytosis 2+, Haptoglobin < 29L, Prothrombin Time 16.7H, Prothromb Time International Ratio 1.6H, Fibrinogen 152L , Urine Random Sodium < 10 09/26/16 04:45: Sodium Level 132L, Potassium Level 5.3H, Chloride Level 102, Carbon Dioxide Level 21, Anion Gap 9, Blood Urea Nitrogen 45H, Creatinine 1.7H, Estimat Glomerular Filtration Rate 49.3, Glucose Level 114H, Calcium Level 8.3L, Total Bilirubin 2.7H, Direct Bilirubin 1.3H, Aspartate Amino Transf (AST/SGOT) 79H, Alanine Aminotransferase (ALT/SGPT) 14, Alkaline Phosphatase 108, Total Protein 6.0L, Albumin 1.3L, Globulin 4.7, Albumin/Globulin Ratio 0.2L, White Blood Count 6.7, Red Blood Count 2.50L, Hemoglobin 8.4L, Hematocrit 25.7L, Mean Corpuscular Volume 103H, Mean Corpuscular Hemoglobin 33.7H, Mean Corpuscular Hemoglobin Concent 32.9, Red Cell Distribution Width 22.0H, Platelet Count 67L, Mean Platelet Volume 6.9, Neutrophils (%) (Auto) , Lymphocytes (%) (Auto) , Monocytes (%) (Auto) , Eosinophils (%) (Auto) , Basophils (%) (Auto) , Neutrophils % (Manual) [Pending], Lymphocytes % (Manual) [Pending], Platelet Estimate [Pending], Platelet Morphology [Pending], Prothrombin Time 17.1H, Prothromb Time International Ratio 1.7H, Activated Partial Thromboplast Time 38H Height (Feet): 6 Height (Inches): 2.00 Weight (Pounds): 232 Objective GENERAL: Alert and awake. HEENT: PERRLA. NECK: Range of motion is full in all directions. No tenderness to paracervical muscles. LUNGS: Clear. HEART: Regular. ABDOMEN: Distended. BACK: Range of motion is decreased in flexion and extension. EXTREMITIES: Lower extremity motion is decreased over the left hip. Josué are seen over the surgical wound. Drainage noted. Tenderness to palpation. SLOAN PACKER September 26, 2016 08:26
--- NOTE | 2016-09-26 08:39 | Diagnostic Imaging Report ---
Indication: Evaluation of existing PICC Technique: One view of the chest Comparison: For 2016 Findings: There is a left arm PICC, tip which terminates in the mid superior vena cava. There is suggestion of mild interstitial congestion. Heart is borderline enlarged. Pleural spaces are clear. No focal airspace consolidation. Impression: Satisfactory position of PICC, in the mid superior vena cava, suitable for use Mild interstitial congestion Borderline cardiomegaly
[2016-09-26 08:43] LABS: BAND NEUTROPHILS % (MANUAL) 0 % (0-8); BASOPHILS % (MANUAL) 0 % (0-2); EOSINOPHILS % (MANUAL) 1 % (0-3); HYPOCHROMASIA 3+; LYMPHOCYTES % (MANUAL) 12 % (20-45); MACROCYTES 1+; NEUTROPHILS % (MANUAL) 80 % (45-75); PLATELET ESTIMATE DECREASED; SPHEROCYTES 2+; TOTAL CELLS COUNTED 100
[2016-09-26 08:44] LABS: ANISOCYTOSIS 3+; PLATELET MORPHOLOGY NORMAL
[2016-09-26] MEDS ORDERED: Ascorbic Acid 500mg tab ORAL SCH (09:00)
[2016-09-26] MEDS ORDERED: Pantoprazole Inj IVP SCH (09:00)
[2016-09-26] MEDS ORDERED: Aspirin EC 81mg tab ORAL SCH (09:00)
[2016-09-26] MEDS ORDERED: Vitamin D 50,000 units cap ORAL SCH ×3 (09:00)
--- NOTE | 2016-09-26 10:33 | General Progress Note ---
Assessment/Plan Status: stable Status Narrative Location of Service: CCU- Assessment/Plan 1. Shock: ddx, cardiogenic secondary to arrythmai 2. Bradycardia-junctional 3.Bleeding diatheses from the postoperative left-sided hip area. 4. Left-sided hip fracture, status post complicated course of infection and revision surgery in [facility] in August 2016. 5. Acute anemia. 6. Anxiety and depression. 5. Dementia. 6. Alcoholic cirrhosis. 7. Hypercoagulable state. 8. Iron deficiency anemia. 9. Pain management. 11. A/C Renal failure 10. Gastrointestinal and deep vein thrombosis prophylaxis. Plan: Will hold all alpha blockers and All psychotropic medications for now continue Dopamin gtt and optimise to achieve MAP greater than 65 Ok to continue ASA, per [facility] Notes are reviewed Subjective ROS Limited/Unobtainable: Yes Allergies: Coded Allergies: No Known Allergies (Unverified , 09/06/16) Objective Last 24 Hour Vital Signs Date Time Temp Pulse Resp B/P Pulse Ox O2 Delivery O2 Flow Rate FiO2 09/26/16 10:00 73 15 104/63 100 Room Air 09/26/16 09:00 71 15 106/72 100 Room Air 09/26/16 08:16 90/52 09/26/16 08:00 97.9 60 16 98/67 98 Room Air 09/26/16 07:00 71 15 106/65 94 Room Air 09/26/16 06:30 74 14 108/74 100 Room Air 09/26/16 06:00 71 10 126/70 100 Room Air 09/26/16 05:30 73 18 115/95 92 Room Air 09/26/16 05:00 71 14 102/66 97 Room Air 09/26/16 04:30 71 17 99/59 100 Room Air 09/26/16 04:00 97.9 66 16 99/59 99 Room Air 09/26/16 03:30 73 15 107/69 98 Room Air 09/26/16 03:00 71 15 96/69 98 Room Air 09/26/16 02:30 69 11 90/53 99 Room Air 09/26/16 02:00 71 9 101/59 96 Room Air 09/26/16 01:30 71 10 103/56 97 Room Air 09/26/16 01:00 70 9 107/65 99 Room Air 09/26/16 00:30 71 11 98/66 99 Room Air 09/26/16 00:00 69 09/26/16 00:00 98.5 73 16 97/47 100 Room Air 09/25/16 23:30 63 11 95/44 99 Room Air 09/25/16 23:00 68 15 116/64 100 Room Air 09/25/16 22:30 59 13 95/64 99 Room Air 09/25/16 22:00 66 10 123/60 100 Room Air 09/25/16 21:30 73 16 105/61 100 Room Air 09/25/16 21:15 69 17 123/97 100 Room Air 09/25/16 21:00 71 16 112/66 100 Room Air 09/25/16 20:45 73 17 107/60 100 Room Air 09/25/16 20:30 58 14 87/57 100 Room Air 09/25/16 20:15 56 15 94/54 100 Room Air 09/25/16 20:00 65 09/25/16 20:00 116/63 09/25/16 20:00 98.1 68 10 119/83 100 Room Air 09/25/16 19:45 59 14 116/63 100 Room Air 09/25/16 19:30 62 15 103/77 100 Room Air 09/25/16 19:15 85 14 90/49 100 Room Air 09/25/16 19:00 86 8 110/56 100 Room Air 09/25/16 18:48 90/51 09/25/16 18:45 90 20 105/56 100 Room Air 09/25/16 18:30 60 19 98/56 99 Room Air 09/25/16 18:00 98.5 45 19 90/56 99 Room Air 09/25/16 17:30 50 09/25/16 15:37 97.1 78 20 118/82 100 Room Air 09/25/16 14:13 96.2 77 20 117/83 100 Room Air 09/25/16 12:52 44 09/25/16 11:49 97.5 42 19 80/43 95 Intake and Output 09/25/16 09/26/16 19:00 07:00 Intake Total 280 ml 374.665 ml Output Total 650 ml 550 ml Balance -370 ml -175.335 ml Intake Oral 280 ml IV Total 244.665 ml Other 130 ml Output Urine Total 650 ml 550 ml # Bowel Movements 4 Laboratory Tests 09/25/16 15:50: Troponin I < 0.30 09/25/16 21:00: White Blood Count 9.5#, Red Blood Count 2.45L, Hemoglobin 8.6L, Hematocrit 25.1L , Mean Corpuscular Volume 103H, Mean Corpuscular Hemoglobin 35.2H, Mean Corpuscular Hemoglobin Concent 34.3, Red Cell Distribution Width 21.5H, Platelet Count 72L, Mean Platelet Volume 6.0L, Neutrophils (%) (Auto) , Lymphocytes (%) (Auto) , Monocytes (%) (Auto) , Eosinophils (%) (Auto) , Basophils (%) (Auto) , Differential Total Cells Counted 100, Neutrophils % ( Manual) 82H, Lymphocytes % (Manual) 9L, Monocytes % (Manual) 6, Eosinophils % ( Manual) 2, Basophils % (Manual) 1, Band Neutrophils 0, Platelet Estimate DecreasedL, Platelet Morphology Normal, Polychromasia 1+, Hypochromasia 2+, Anisocytosis 2+, Macrocytosis 2+, Haptoglobin < 29L, Prothrombin Time 16.7H, Prothromb Time International Ratio 1.6H, Fibrinogen 152L, Urine Random Sodium < 10, Total Bilirubin 3.0H, Direct Bilirubin 1.6H 09/26/16 04:45: White Blood Count 6.7, Red Blood Count 2.50L, Hemoglobin 8.4L, Hematocrit 25.7L , Mean Corpuscular Volume 103H, Mean Corpuscular Hemoglobin 33.7H, Mean Corpuscular Hemoglobin Concent 32.9, Red Cell Distribution Width 22.0H, Platelet Count 67L, Mean Platelet Volume 6.9, Neutrophils (%) (Auto) , Lymphocytes (%) (Auto) , Monocytes (%) (Auto) , Eosinophils (%) (Auto) , Basophils (%) (Auto) , Differential Total Cells Counted 100, Neutrophils % ( Manual) 80H, Lymphocytes % (Manual) 12L, Monocytes % (Manual) 7, Eosinophils % ( Manual) 1, Basophils % (Manual) 0, Band Neutrophils 0, Platelet Estimate DecreasedL, Platelet Morphology Normal, Hypochromasia 3+, Anisocytosis 3+, Macrocytosis 1+, Prothrombin Time 17.1H, Prothromb Time International Ratio 1.7H , Total Bilirubin 2.7H, Direct Bilirubin 1.3H, Spherocytes 2+, Activated Partial Thromboplast Time 38H, Sodium Level 132L, Potassium Level 5.3H, Chloride Level 102, Carbon Dioxide Level 21, Anion Gap 9, Blood Urea Nitrogen 45H, Creatinine 1.7H, Estimat Glomerular Filtration Rate 49.3, Glucose Level 114H, Calcium Level 8.3L, Aspartate Amino Transf (AST/SGOT) 79H, Alanine Aminotransferase (ALT/SGPT) 14, Alkaline Phosphatase 108, Total Protein 6.0L, Albumin 1.3L, Globulin 4.7, Albumin/Globulin Ratio 0.2L Height (Feet): 6 Height (Inches): 2.00 Weight (Pounds): 232 General Appearance: no apparent distress EENT: PERRL/EOMI Neck: supple Cardiovascular: bradycardia Respiratory/Chest: lungs clear Abdomen: soft, other - diffuse sever ascitis Extremities: other - minimal oozing blood from left hip Edema: 2+ Leg (R), 2+ Pedal (L) 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
--- NOTE | 2016-09-26 10:38 | Infectious Diseases Prog Note ---
Assessment/Plan Assessment/Plan A: No evid of sepsis at this time SP Hypotension Doubt :SPB No evidence of surgical site infection at this time Hepatitis C antibody + HIV : neg Depression Hypotension due to bradycardia Dementia Alcohol abuse Anemia History of left hip surgery four months ago CT of the pelvis, left hip : hemiarthroplasty, fracture of intertrochanteric region of the femur, soft tissue swelling, hematoma, and ascites PLAN: Monitor the patient off of antibiotics Monitor CBC Monitor BMP. Monitor cultures of the blood and urine Paracentesis today Subjective Allergies: Coded Allergies: No Known Allergies (Unverified , 09/06/16) Subjective on dopamine Objective Vital Signs Last 24 Hour Vital Signs Date Time Temp Pulse Resp B/P Pulse Ox O2 Delivery O2 Flow Rate FiO2 09/26/16 10:00 73 15 104/63 100 Room Air 09/26/16 09:00 71 15 106/72 100 Room Air 09/26/16 08:16 90/52 09/26/16 08:00 97.9 60 16 98/67 98 Room Air 09/26/16 07:00 71 15 106/65 94 Room Air 09/26/16 06:30 74 14 108/74 100 Room Air 09/26/16 06:00 71 10 126/70 100 Room Air 09/26/16 05:30 73 18 115/95 92 Room Air 09/26/16 05:00 71 14 102/66 97 Room Air 09/26/16 04:30 71 17 99/59 100 Room Air 09/26/16 04:00 97.9 66 16 99/59 99 Room Air 09/26/16 03:30 73 15 107/69 98 Room Air 09/26/16 03:00 71 15 96/69 98 Room Air 09/26/16 02:30 69 11 90/53 99 Room Air 09/26/16 02:00 71 9 101/59 96 Room Air 09/26/16 01:30 71 10 103/56 97 Room Air 09/26/16 01:00 70 9 107/65 99 Room Air 09/26/16 00:30 71 11 98/66 99 Room Air 09/26/16 00:00 69 09/26/16 00:00 98.5 73 16 97/47 100 Room Air 09/25/16 23:30 63 11 95/44 99 Room Air 09/25/16 23:00 68 15 116/64 100 Room Air 09/25/16 22:30 59 13 95/64 99 Room Air 09/25/16 22:00 66 10 123/60 100 Room Air 09/25/16 21:30 73 16 105/61 100 Room Air 09/25/16 21:15 69 17 123/97 100 Room Air 09/25/16 21:00 71 16 112/66 100 Room Air 09/25/16 20:45 73 17 107/60 100 Room Air 09/25/16 20:30 58 14 87/57 100 Room Air 09/25/16 20:15 56 15 94/54 100 Room Air 09/25/16 20:00 65 09/25/16 20:00 116/63 09/25/16 20:00 98.1 68 10 119/83 100 Room Air 09/25/16 19:45 59 14 116/63 100 Room Air 09/25/16 19:30 62 15 103/77 100 Room Air 09/25/16 19:15 85 14 90/49 100 Room Air 09/25/16 19:00 86 8 110/56 100 Room Air 09/25/16 18:48 90/51 09/25/16 18:45 90 20 105/56 100 Room Air 09/25/16 18:30 60 19 98/56 99 Room Air 09/25/16 18:00 98.5 45 19 90/56 99 Room Air 09/25/16 17:30 50 09/25/16 15:37 97.1 78 20 118/82 100 Room Air 09/25/16 14:13 96.2 77 20 117/83 100 Room Air 09/25/16 12:52 44 09/25/16 11:49 97.5 42 19 80/43 95 Height (Feet): 6 Height (Inches): 2.00 Weight (Pounds): 232 HEENT: atraumatic Respiratory/Chest: normal breath sounds Cardiovascular: no JVD Abdomen: non distended Microbiology Date/Time Source Procedure Growth Status 09/24/16 02:35 Nasal Nares MRSA Culture - Final NO METHICILLIN RESISTANT STAPH AUREUS... Complete Laboratory Tests Test 09/25/16 15:50 09/25/16 21:00 09/26/16 04:45 Troponin I < 0.30 ng/mL (<=0.30) White Blood Count 9.5 K/UL (4.8-10.8) # 6.7 K/UL (4.8-10.8) Red Blood Count 2.45 M/UL (4.70-6.10) L 2.50 M/UL (4.70-6.10) L Hemoglobin 8.6 G/DL (14.2-18.0) L 8.4 G/DL (14.2-18.0) L Hematocrit 25.1 % (42.0-52.0) L 25.7 % (42.0-52.0) L Mean Corpuscular Volume 103 FL (80-99) H 103 FL (80-99) H Mean Corpuscular Hemoglobin 35.2 PG (27.0-31.0) H 33.7 PG (27.0-31.0) H Mean Corpuscular Hemoglobin Concent 34.3 G/DL (32.0-36.0) 32.9 G/DL (32.0-36.0) Red Cell Distribution Width 21.5 % (11.6-14.8) H 22.0 % (11.6-14.8) H Platelet Count 72 K/UL (150-450) L 67 K/UL (150-450) L Mean Platelet Volume 6.0 FL (6.5-10.1) L 6.9 FL (6.5-10.1) Neutrophils (%) (Auto) % (45.0-75.0) % (45.0-75.0) Lymphocytes (%) (Auto) % (20.0-45.0) % (20.0-45.0) Monocytes (%) (Auto) % (1.0-10.0) % (1.0-10.0) Eosinophils (%) (Auto) % (0.0-3.0) % (0.0-3.0) Basophils (%) (Auto) % (0.0-2.0) % (0.0-2.0) Differential Total Cells Counted 100 100 Neutrophils % (Manual) 82 % (45-75) H 80 % (45-75) H Lymphocytes % (Manual) 9 % (20-45) L 12 % (20-45) L Monocytes % (Manual) 6 % (1-10) 7 % (1-10) Eosinophils % (Manual) 2 % (0-3) 1 % (0-3) Basophils % (Manual) 1 % (0-2) 0 % (0-2) Band Neutrophils 0 % (0-8) 0 % (0-8) Platelet Estimate Decreased L Decreased L Platelet Morphology Normal Normal Polychromasia 1+ Hypochromasia 2+ 3+ Anisocytosis 2+ 3+ Macrocytosis 2+ 1+ Haptoglobin < 29 mg/dL (30-200) L Prothrombin Time 16.7 SEC (9.30-11.50) H 17.1 SEC (9.30-11.50) H Prothromb Time International Ratio 1.6 (0.9-1.1) H 1.7 (0.9-1.1) H Fibrinogen 152 mg/dL (200-400) L Urine Random Sodium < 10 mmol/L Total Bilirubin 3.0 mg/dL (0.0-1.2) H 2.7 mg/dL (0.0-1.2) H Direct Bilirubin 1.6 mg/dL (0.1-0.3) H 1.3 mg/dL (0.1-0.3) H Spherocytes 2+ Activated Partial Thromboplast Time 38 SEC (23-33) H Sodium Level 132 mEQ/L (135-145) L Potassium Level 5.3 mEQ/L (3.4-4.9) H Chloride Level 102 mEQ/L (98-107) Carbon Dioxide Level 21 mEQ/L (20-30) Anion Gap 9 (5-15) Blood Urea Nitrogen 45 mg/dL (7-23) H Creatinine 1.7 mg/dL (0.7-1.2) H Estimat Glomerular Filtration Rate 49.3 mL/min (>60) Glucose Level 114 mg/dL (74-106) H Calcium Level 8.3 mg/dL (8.6-10.2) L Aspartate Amino Transf (AST/SGOT) 79 U/L (5-40) H Alanine Aminotransferase (ALT/SGPT) 14 U/L (3-41) Alkaline Phosphatase 108 U/L (40-129) Total Protein 6.0 g/dL (6.6-8.7) L Albumin 1.3 g/dL (3.5-5.2) L Globulin 4.7 g/dL Albumin/Globulin Ratio 0.2 (1.0-2.7) L Current Medications Medications (Trade) Dose Ordered Sig/Carolynn Route PRN Reason Start Time Stop Time Status Last Admin Dose Admin Acetaminophen (Tylenol) 650 mg Q4H PRN ORAL Mild Pain/Temp > 100.5 09/25/16 20:00 10/25/16 19:59 Acetaminophen/ Hydrocodone Bitart ([place] 5/325) 1 tab Q4H PRN ORAL Moderate Pain (Pain Scale 4-6) 09/25/16 20:30 10/02/16 20:29 Ascorbic Acid (Vitamin C) 500 mg DAILY ORAL 09/26/16 09:00 10/26/16 08:59 Aspirin (Ecotrin) 81 mg DAILY ORAL 09/26/16 09:00 10/26/16 08:59 Bisacodyl (Dulcolax) 10 mg DAILYPRN PRN RECTAL Constipation 09/25/16 21:00 10/25/16 20:59 Docusate Sodium (Colace) 100 mg TWICE A DAY ORAL 09/26/16 09:00 10/26/16 08:59 Dopamine HCl/ Dextrose (DOPamine 400mg/ 250ml) 250 ml @ 0 mls/hr Q24H IV 09/26/16 08:15 10/26/16 08:14 09/26/16 08:16 Ergocalciferol (Drisdol) 50,000 intlu MoTh ORAL 09/26/16 09:00 10/26/16 08:59 Lactulose (Cephulac) 30 gm BID ORAL 09/26/16 09:00 10/26/16 08:59 Pantoprazole (Protonix) 40 mg DAILY IVP 09/26/16 09:00 10/26/16 08:59 09/26/16 08:20 Rifaximin 550 mg 550 mg TWICE A DAY ORAL 09/26/16 09:00 10/03/16 08:59 Sodium Chloride 550 ml @ 0 mls/hr Q0M PRN IV PRN SBP < 95 09/25/16 20:30 10/25/16 20:29 CHAY DOMINGO M.D. September 26, 2016 10:38
--- NOTE | 2016-09-26 10:58 | Pulmonolgy Critical Care Note ---
Critical Care - Asmt/Plan Problems: (1) Coagulopathy (2) Shock (3) End-stage liver disease (4) Elevated CEA (5) EDITH (acute kidney injury) (6) Bradycardia (7) Thrombocytopenia Respiratory: monitor respiratory rate, adjust FIO2 Cardiac: continue pressors Renal: F/U I&O, keep IV fluid, check electrolytes Infectious Disease: check cultures Gastrointestinal: other - paracenthesis Endocrine: monitor blood sugar Hematologic: monitor H/H, transfuse if hgb<8.5 Neurologic: PRN Ativan, PRN Morphine, keep patient comfortable Affect: PRN ativan Prophylaxis: Protonix, Heparin Notes Reviewed: log buyer, cardio, renal Discussed with: nurses, consultants, nurse outreach case manageroracle database manager - Objective Last 24 Hour Vital Signs Date Time Temp Pulse Resp B/P Pulse Ox O2 Delivery O2 Flow Rate FiO2 09/26/16 10:00 73 15 104/63 100 Room Air 09/26/16 09:00 71 15 106/72 100 Room Air 09/26/16 08:16 90/52 09/26/16 08:00 97.9 60 16 98/67 98 Room Air 09/26/16 07:00 71 15 106/65 94 Room Air 09/26/16 06:30 74 14 108/74 100 Room Air 09/26/16 06:00 71 10 126/70 100 Room Air 09/26/16 05:30 73 18 115/95 92 Room Air 09/26/16 05:00 71 14 102/66 97 Room Air 09/26/16 04:30 71 17 99/59 100 Room Air 09/26/16 04:00 97.9 66 16 99/59 99 Room Air 09/26/16 03:30 73 15 107/69 98 Room Air 09/26/16 03:00 71 15 96/69 98 Room Air 09/26/16 02:30 69 11 90/53 99 Room Air 09/26/16 02:00 71 9 101/59 96 Room Air 09/26/16 01:30 71 10 103/56 97 Room Air 09/26/16 01:00 70 9 107/65 99 Room Air 09/26/16 00:30 71 11 98/66 99 Room Air 09/26/16 00:00 69 09/26/16 00:00 98.5 73 16 97/47 100 Room Air 09/25/16 23:30 63 11 95/44 99 Room Air 09/25/16 23:00 68 15 116/64 100 Room Air 09/25/16 22:30 59 13 95/64 99 Room Air 09/25/16 22:00 66 10 123/60 100 Room Air 09/25/16 21:30 73 16 105/61 100 Room Air 09/25/16 21:15 69 17 123/97 100 Room Air 09/25/16 21:00 71 16 112/66 100 Room Air 09/25/16 20:45 73 17 107/60 100 Room Air 09/25/16 20:30 58 14 87/57 100 Room Air 09/25/16 20:15 56 15 94/54 100 Room Air 09/25/16 20:00 65 09/25/16 20:00 116/63 09/25/16 20:00 98.1 68 10 119/83 100 Room Air 09/25/16 19:45 59 14 116/63 100 Room Air 09/25/16 19:30 62 15 103/77 100 Room Air 09/25/16 19:15 85 14 90/49 100 Room Air 09/25/16 19:00 86 8 110/56 100 Room Air 09/25/16 18:48 90/51 09/25/16 18:45 90 20 105/56 100 Room Air 09/25/16 18:30 60 19 98/56 99 Room Air 09/25/16 18:00 98.5 45 19 90/56 99 Room Air 09/25/16 17:30 50 09/25/16 15:37 97.1 78 20 118/82 100 Room Air 09/25/16 14:13 96.2 77 20 117/83 100 Room Air 09/25/16 12:52 44 09/25/16 11:49 97.5 42 19 80/43 95 Status: awake Condition: critical HEENT: atraumatic Heart: HR/BP stable, HR/BP unstable Abdomen: soft, active bowel sounds Extremities: no C/C/E Decubiti: location Micro: Microbiology Date/Time Source Procedure Growth Status 09/24/16 02:35 Nasal Nares MRSA Culture - Final NO METHICILLIN RESISTANT STAPH AUREUS... Complete Critical Care - Subjective ROS Limited/Unobtainable: No ICU Day: 2 Interval Events: 66 year old male with hx of end-stage ETOH liver disease, chronic thrombocytopenia and anemia was admitted a few days ago with CC of anemia and increased weakness. He was transferred to ICU with CC of hypotension and bradycardia and was started on dopamine drip. His Echo showed EF of 55% Currently, he is awake and c/o abdominal distension. Condition: critical Drips: dopamin drip I&O: Intake and Output 09/25/16 09/26/16 19:00 07:00 Intake Total 280 ml 374.665 ml Output Total 650 ml 550 ml Balance -370 ml -175.335 ml Intake Oral 280 ml IV Total 244.665 ml Other 130 ml Output Urine Total 650 ml 550 ml # Bowel Movements 4 CXR: pulmonary edema Labs: Laboratory Tests Test 09/25/16 15:50 09/25/16 21:00 09/26/16 04:45 Troponin I < 0.30 ng/mL (<=0.30) White Blood Count 9.5 K/UL (4.8-10.8) # 6.7 K/UL (4.8-10.8) Red Blood Count 2.45 M/UL (4.70-6.10) L 2.50 M/UL (4.70-6.10) L Hemoglobin 8.6 G/DL (14.2-18.0) L 8.4 G/DL (14.2-18.0) L Hematocrit 25.1 % (42.0-52.0) L 25.7 % (42.0-52.0) L Mean Corpuscular Volume 103 FL (80-99) H 103 FL (80-99) H Mean Corpuscular Hemoglobin 35.2 PG (27.0-31.0) H 33.7 PG (27.0-31.0) H Mean Corpuscular Hemoglobin Concent 34.3 G/DL (32.0-36.0) 32.9 G/DL (32.0-36.0) Red Cell Distribution Width 21.5 % (11.6-14.8) H 22.0 % (11.6-14.8) H Platelet Count 72 K/UL (150-450) L 67 K/UL (150-450) L Mean Platelet Volume 6.0 FL (6.5-10.1) L 6.9 FL (6.5-10.1) Neutrophils (%) (Auto) % (45.0-75.0) % (45.0-75.0) Lymphocytes (%) (Auto) % (20.0-45.0) % (20.0-45.0) Monocytes (%) (Auto) % (1.0-10.0) % (1.0-10.0) Eosinophils (%) (Auto) % (0.0-3.0) % (0.0-3.0) Basophils (%) (Auto) % (0.0-2.0) % (0.0-2.0) Differential Total Cells Counted 100 100 Neutrophils % (Manual) 82 % (45-75) H 80 % (45-75) H Lymphocytes % (Manual) 9 % (20-45) L 12 % (20-45) L Monocytes % (Manual) 6 % (1-10) 7 % (1-10) Eosinophils % (Manual) 2 % (0-3) 1 % (0-3) Basophils % (Manual) 1 % (0-2) 0 % (0-2) Band Neutrophils 0 % (0-8) 0 % (0-8) Platelet Estimate Decreased L Decreased L Platelet Morphology Normal Normal Polychromasia 1+ Hypochromasia 2+ 3+ Anisocytosis 2+ 3+ Macrocytosis 2+ 1+ Haptoglobin < 29 mg/dL (30-200) L Prothrombin Time 16.7 SEC (9.30-11.50) H 17.1 SEC (9.30-11.50) H Prothromb Time International Ratio 1.6 (0.9-1.1) H 1.7 (0.9-1.1) H Fibrinogen 152 mg/dL (200-400) L Urine Random Sodium < 10 mmol/L Total Bilirubin 3.0 mg/dL (0.0-1.2) H 2.7 mg/dL (0.0-1.2) H Direct Bilirubin 1.6 mg/dL (0.1-0.3) H 1.3 mg/dL (0.1-0.3) H Spherocytes 2+ Activated Partial Thromboplast Time 38 SEC (23-33) H Sodium Level 132 mEQ/L (135-145) L Potassium Level 5.3 mEQ/L (3.4-4.9) H Chloride Level 102 mEQ/L (98-107) Carbon Dioxide Level 21 mEQ/L (20-30) Anion Gap 9 (5-15) Blood Urea Nitrogen 45 mg/dL (7-23) H Creatinine 1.7 mg/dL (0.7-1.2) H Estimat Glomerular Filtration Rate 49.3 mL/min (>60) Glucose Level 114 mg/dL (74-106) H Calcium Level 8.3 mg/dL (8.6-10.2) L Aspartate Amino Transf (AST/SGOT) 79 U/L (5-40) H Alanine Aminotransferase (ALT/SGPT) 14 U/L (3-41) Alkaline Phosphatase 108 U/L (40-129) Total Protein 6.0 g/dL (6.6-8.7) L Albumin 1.3 g/dL (3.5-5.2) L Globulin 4.7 g/dL Albumin/Globulin Ratio 0.2 (1.0-2.7) L CIRA KOCH September 26, 2016 10:58
--- NOTE | 2016-09-26 11:03 | Anethesia Preoperative Eval ---
Anesthesia Pre-op PMH/ROS General Date of Evaluation: September 26, 2016 Time of Evaluation: 11:01 Anesthesiologist: evangelina ASA Score: ASA 3 Mallampati Score Class I : Soft palate, uvula, fauces, pillars visible Class II: Soft palate, uvula, fauces visible Class III: Soft palate, base of uvula visible Class IV: Only hard plate visible Mallampati Classification: Class III Surgeon: alfredo Diagnosis: anemia Surgical Procedure: EGD Anesthesia History: none Family History: no anesthesia problems Allergies: Coded Allergies: No Known Allergies (Unverified , 09/06/16) Past Medical History Cardiovascular: Reports: other - hypotension on dopamine Pulmonary: Denies: COPD, JARET, asthma, other Gastrointestinal/Genitourinary: Reports: CRI, other - cirrhosis / hep c Neurologic/Psychiatric: Reports: dementia Endocrine: Denies: DM, hypothyroidism, other, steroids HEENT: Denies: NULATO (L), NULATO (R), cataract (L), cataract (R), glaucoma, other Hematology/Immune: Reports: anemia, bleeding disorder Musculoskeletal/Integumentary: Denies: DDD, DJD, OA, RA, edema, other PMH Narrative: 1- Acute Anemia 2- Bleeding diathesis- hypercoagulation state 3- Alcoholic cirhosis 4- left Hip fracture, s/p sx times two 5- Dementia 6- Abn Cr level PSxH Narrative: hip surgery Anesthesia Pre-op Phys. Exam Physician Exam Last Vital Signs Date Time Temp Pulse Resp B/P Pulse Ox O2 Delivery O2 Flow Rate FiO2 09/26/16 10:00 73 15 104/63 100 Room Air 09/26/16 08:00 97.9 Constitutional: NAD Neurologic: other - answers simple questions Cardiovascular: RRR Respiratory: CTA Gastrointestinal: other - distended Airway Exam Mallampati Classification 3 Mallampati Score: Class III MO: limited ROM: limited Teeth: missing Dentures: no lower, no upper Anesthesia Pre-op A/P Labs Hematology Test 09/25/16 21:00 09/26/16 04:45 White Blood Count 9.5 K/UL (4.8-10.8) # 6.7 K/UL (4.8-10.8) Red Blood Count 2.45 M/UL (4.70-6.10) L 2.50 M/UL (4.70-6.10) L Hemoglobin 8.6 G/DL (14.2-18.0) L 8.4 G/DL (14.2-18.0) L Hematocrit 25.1 % (42.0-52.0) L 25.7 % (42.0-52.0) L Mean Corpuscular Volume 103 FL (80-99) H 103 FL (80-99) H Mean Corpuscular Hemoglobin 35.2 PG (27.0-31.0) H 33.7 PG (27.0-31.0) H Mean Corpuscular Hemoglobin Concent 34.3 G/DL (32.0-36.0) 32.9 G/DL (32.0-36.0) Red Cell Distribution Width 21.5 % (11.6-14.8) H 22.0 % (11.6-14.8) H Platelet Count 72 K/UL (150-450) L 67 K/UL (150-450) L Mean Platelet Volume 6.0 FL (6.5-10.1) L 6.9 FL (6.5-10.1) Neutrophils (%) (Auto) % (45.0-75.0) % (45.0-75.0) Lymphocytes (%) (Auto) % (20.0-45.0) % (20.0-45.0) Monocytes (%) (Auto) % (1.0-10.0) % (1.0-10.0) Eosinophils (%) (Auto) % (0.0-3.0) % (0.0-3.0) Basophils (%) (Auto) % (0.0-2.0) % (0.0-2.0) Differential Total Cells Counted 100 100 Neutrophils % (Manual) 82 % (45-75) H 80 % (45-75) H Lymphocytes % (Manual) 9 % (20-45) L 12 % (20-45) L Monocytes % (Manual) 6 % (1-10) 7 % (1-10) Eosinophils % (Manual) 2 % (0-3) 1 % (0-3) Basophils % (Manual) 1 % (0-2) 0 % (0-2) Band Neutrophils 0 % (0-8) 0 % (0-8) Platelet Estimate Decreased L Decreased L Platelet Morphology Normal Normal Polychromasia 1+ Hypochromasia 2+ 3+ Anisocytosis 2+ 3+ Macrocytosis 2+ 1+ Haptoglobin < 29 mg/dL (30-200) L Spherocytes 2+ Coagulation Test 09/25/16 21:00 09/26/16 04:45 Prothrombin Time 16.7 SEC (9.30-11.50) H 17.1 SEC (9.30-11.50) H Prothromb Time International Ratio 1.6 (0.9-1.1) H 1.7 (0.9-1.1) H Fibrinogen 152 mg/dL (200-400) L Activated Partial Thromboplast Time 38 SEC (23-33) H Chemistry Test 09/25/16 15:50 09/25/16 21:00 09/26/16 04:45 Troponin I < 0.30 ng/mL (<=0.30) Total Bilirubin 3.0 mg/dL (0.0-1.2) H 2.7 mg/dL (0.0-1.2) H Direct Bilirubin 1.6 mg/dL (0.1-0.3) H 1.3 mg/dL (0.1-0.3) H Sodium Level 132 mEQ/L (135-145) L Potassium Level 5.3 mEQ/L (3.4-4.9) H Chloride Level 102 mEQ/L (98-107) Carbon Dioxide Level 21 mEQ/L (20-30) Anion Gap 9 (5-15) Blood Urea Nitrogen 45 mg/dL (7-23) H Creatinine 1.7 mg/dL (0.7-1.2) H Estimat Glomerular Filtration Rate 49.3 mL/min (>60) Glucose Level 114 mg/dL (74-106) H Calcium Level 8.3 mg/dL (8.6-10.2) L Aspartate Amino Transf (AST/SGOT) 79 U/L (5-40) H Alanine Aminotransferase (ALT/SGPT) 14 U/L (3-41) Alkaline Phosphatase 108 U/L (40-129) Total Protein 6.0 g/dL (6.6-8.7) L Albumin 1.3 g/dL (3.5-5.2) L Globulin 4.7 g/dL Albumin/Globulin Ratio 0.2 (1.0-2.7) L Studies Pre-op Studies: EKG - SR, echo - ef=55% Risk Assessment & Plan Plan: mac Status Change Before Surgery: No Pre-Antibiotics Drug: none MOOSE ROSENBERG CRNA September 26, 2016 11:03
--- NOTE | 2016-09-26 11:04 | Pre-Procedure Note/Attestation ---
Pre-Procedure Note/Attestation Complete Prior to Procedure Planned Procedure: not applicable Procedure Narrative: egd Indications for Procedure Pre-Operative Diagnosis: gib Attestation I attest that I discussed the nature of the procedure; its benefits; risks and complications; and alternatives (and the risks and benefits of such alternatives ), prior to the procedure, with the patient (or the patient's legal sales representative [place] [employer]). I attest that, if there was a reasonable possibility of needing a blood transfusion, the patient (or the patient's legal sales representative [place]) was given the [facility] standardized written summary, pursuant to the Nikko Julia Blood Safety Act ([place] Health and Safety Code # 1645, as amended). I attest that I re-evaluated the patient just prior to the surgery and that there has been no change in the patient's H&P, except as documented below: THAI SEAMAN September 26, 2016 11:04
--- NOTE | 2016-09-26 11:19 | Endoscopy Procedure Note ---
Endoscopy Procedure Note Indication for Procedure: gib Procedures Performed: EGD Operative Findings/Diagnosis: gastritis Specimen: yes Pt Tolerated Procedure Well: Yes Estimated Blood Loss: none Anesthesiologist: kelly Anesthesia: MAC Implant(s) used?: No 50 yrs or older w/o bx or poly: Not Applicable 10yrs. F/U not recommended: Not Applicable THAI SEAMAN September 26, 2016 11:19
--- NOTE | 2016-09-26 11:27 | Immediate Post-Op Evaluation ---
Immediate Post-Op Evalulation Immediate Post-Op Evalulation Procedure: egd Date of Evaluation: September 26, 2016 Time of Evaluation: 11:20 Blood Pressure Systolic: 98 Blood Pressure Diastolic: 50 Pulse Rate: 78 Respiratory Rate: 14 O2 Sat by Pulse Oximetry: 98 Nausea: No Vomiting: No Complications none Patient Status: awake, reacts Hydration Status: other - on dopamine as baseline Drug: none MOOSE ROSENBERG CRNA September 26, 2016 11:27
--- NOTE | 2016-09-26 11:34 | General Progress Note ---
Assessment/Plan Status: unchanged Assessment/Plan status; Acute renal failure- Severe Anemia HyperKalemia Dehydration Proteinuria UTI High INR others: 1. s/p Status post mechanical fall. 2. Left periprosthetic femoral fracture. 3. Alcoholic liver cirrhosis. 4. s/p Elevated transaminase. 5. 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 6. Elevated tumor markers (CEA, AFP/alpha-fetoprotein). 7. Acute hepatic encephalopathy. 8. Hypertension. 9. Dementia. 10. Psychosis. 11. History of hemiarthroplasty, left hip, recent. 12. Hepatitis C. 13. History of alcohol abuse. 14. Anemia of chronic disease. 15. Thrombocytopenia, secondary to alcohol abuse. Transfuse- hold mind altering meds- antibiotics - avoid nephrotoxics urine studies monitor renal parameters Paracythesis per orders Subjective ROS Limited/Unobtainable: No Constitutional: Reports: malaise Allergies: Coded Allergies: No Known Allergies (Unverified , 09/06/16) Objective Last 24 Hour Vital Signs Date Time Temp Pulse Resp B/P Pulse Ox O2 Delivery O2 Flow Rate FiO2 09/26/16 11:27 78 14 98 09/26/16 11:00 77 15 123/68 100 Room Air 09/26/16 10:00 73 15 104/63 100 Room Air 09/26/16 09:00 71 15 106/72 100 Room Air 09/26/16 08:16 90/52 09/26/16 08:00 97.9 60 16 98/67 98 Room Air 09/26/16 07:00 71 15 106/65 94 Room Air 09/26/16 06:30 74 14 108/74 100 Room Air 09/26/16 06:00 71 10 126/70 100 Room Air 09/26/16 05:30 73 18 115/95 92 Room Air 09/26/16 05:00 71 14 102/66 97 Room Air 09/26/16 04:30 71 17 99/59 100 Room Air 09/26/16 04:00 97.9 66 16 99/59 99 Room Air 09/26/16 03:30 73 15 107/69 98 Room Air 09/26/16 03:00 71 15 96/69 98 Room Air 09/26/16 02:30 69 11 90/53 99 Room Air 09/26/16 02:00 71 9 101/59 96 Room Air 09/26/16 01:30 71 10 103/56 97 Room Air 09/26/16 01:00 70 9 107/65 99 Room Air 09/26/16 00:30 71 11 98/66 99 Room Air 09/26/16 00:00 69 09/26/16 00:00 98.5 73 16 97/47 100 Room Air 09/25/16 23:30 63 11 95/44 99 Room Air 09/25/16 23:00 68 15 116/64 100 Room Air 09/25/16 22:30 59 13 95/64 99 Room Air 09/25/16 22:00 66 10 123/60 100 Room Air 09/25/16 21:30 73 16 105/61 100 Room Air 09/25/16 21:15 69 17 123/97 100 Room Air 09/25/16 21:00 71 16 112/66 100 Room Air 09/25/16 20:45 73 17 107/60 100 Room Air 09/25/16 20:30 58 14 87/57 100 Room Air 09/25/16 20:15 56 15 94/54 100 Room Air 09/25/16 20:00 65 09/25/16 20:00 116/63 09/25/16 20:00 98.1 68 10 119/83 100 Room Air 09/25/16 19:45 59 14 116/63 100 Room Air 09/25/16 19:30 62 15 103/77 100 Room Air 09/25/16 19:15 85 14 90/49 100 Room Air 09/25/16 19:00 86 8 110/56 100 Room Air 09/25/16 18:48 90/51 09/25/16 18:45 90 20 105/56 100 Room Air 09/25/16 18:30 60 19 98/56 99 Room Air 09/25/16 18:00 98.5 45 19 90/56 99 Room Air 09/25/16 17:30 50 09/25/16 15:37 97.1 78 20 118/82 100 Room Air 09/25/16 14:13 96.2 77 20 117/83 100 Room Air 09/25/16 12:52 44 09/25/16 11:49 97.5 42 19 80/43 95 Intake and Output 09/25/16 09/26/16 19:00 07:00 Intake Total 280 ml 374.665 ml Output Total 650 ml 550 ml Balance -370 ml -175.335 ml Intake Oral 280 ml IV Total 244.665 ml Other 130 ml Output Urine Total 650 ml 550 ml # Bowel Movements 4 Laboratory Tests 09/25/16 15:50: Troponin I < 0.30 09/25/16 21:00: White Blood Count 9.5#, Red Blood Count 2.45L, Hemoglobin 8.6L, Hematocrit 25.1L , Mean Corpuscular Volume 103H, Mean Corpuscular Hemoglobin 35.2H, Mean Corpuscular Hemoglobin Concent 34.3, Red Cell Distribution Width 21.5H, Platelet Count 72L, Mean Platelet Volume 6.0L, Neutrophils (%) (Auto) , Lymphocytes (%) (Auto) , Monocytes (%) (Auto) , Eosinophils (%) (Auto) , Basophils (%) (Auto) , Differential Total Cells Counted 100, Neutrophils % ( Manual) 82H, Lymphocytes % (Manual) 9L, Monocytes % (Manual) 6, Eosinophils % ( Manual) 2, Basophils % (Manual) 1, Band Neutrophils 0, Platelet Estimate DecreasedL, Platelet Morphology Normal, Polychromasia 1+, Hypochromasia 2+, Anisocytosis 2+, Macrocytosis 2+, Haptoglobin < 29L, Prothrombin Time 16.7H, Prothromb Time International Ratio 1.6H, Fibrinogen 152L, Urine Random Sodium < 10, Total Bilirubin 3.0H, Direct Bilirubin 1.6H 09/26/16 04:45: White Blood Count 6.7, Red Blood Count 2.50L, Hemoglobin 8.4L, Hematocrit 25.7L , Mean Corpuscular Volume 103H, Mean Corpuscular Hemoglobin 33.7H, Mean Corpuscular Hemoglobin Concent 32.9, Red Cell Distribution Width 22.0H, Platelet Count 67L, Mean Platelet Volume 6.9, Neutrophils (%) (Auto) , Lymphocytes (%) (Auto) , Monocytes (%) (Auto) , Eosinophils (%) (Auto) , Basophils (%) (Auto) , Differential Total Cells Counted 100, Neutrophils % ( Manual) 80H, Lymphocytes % (Manual) 12L, Monocytes % (Manual) 7, Eosinophils % ( Manual) 1, Basophils % (Manual) 0, Band Neutrophils 0, Platelet Estimate DecreasedL, Platelet Morphology Normal, Hypochromasia 3+, Anisocytosis 3+, Macrocytosis 1+, Prothrombin Time 17.1H, Prothromb Time International Ratio 1.7H , Total Bilirubin 2.7H, Direct Bilirubin 1.3H, Spherocytes 2+, Activated Partial Thromboplast Time 38H, Sodium Level 132L, Potassium Level 5.3H, Chloride Level 102, Carbon Dioxide Level 21, Anion Gap 9, Blood Urea Nitrogen 45H, Creatinine 1.7H, Estimat Glomerular Filtration Rate 49.3, Glucose Level 114H, Calcium Level 8.3L, Aspartate Amino Transf (AST/SGOT) 79H, Alanine Aminotransferase (ALT/SGPT) 14, Alkaline Phosphatase 108, Total Protein 6.0L, Albumin 1.3L, Globulin 4.7, Albumin/Globulin Ratio 0.2L Height (Feet): 6 Height (Inches): 2.00 Weight (Pounds): 232 General Appearance: lethargic Cardiovascular: normal rate Respiratory/Chest: decreased breath sounds Abdomen: distended, other - ascitis PRINCESS PALACIO September 26, 2016 11:34
--- NOTE | 2016-09-26 12:14 | 48 Hour Post Anesthesia Eval ---
Post Anesthesia Evaluation Procedure: egd Date of Evaluation: September 26, 2016 Time of Evaluation: 12:14 Blood Pressure Systolic: 96 0: 40 Pulse Rate: 75 Respiratory Rate: 14 O2 Sat by Pulse Oximetry: 100 Airway: patent Nausea: No Vomiting: No Hydration Status: adequate Mental Status/LOC: patient returned to baseline Post-Anesthesia Complications: none Follow-up care needed: N/A MOOSE ROSENBERG CRNA September 26, 2016 12:14
[2016-09-26 12:32] LABS: RETICULOCYTE COUNT 4.9 % (0.0-2.0)
[2016-09-26 12:35] LABS: LACTATE DEHYDROGENASE 374 U/L (135-230)
[2016-09-26 13:42] LABS: HEMOLYSIS 6; IRON 52 ug/dL (59-158); TOTAL IRON BINDING CAPACITY 137 ug/dL (250-400)
--- NOTE | 2016-09-26 15:11 | Diagnostic Imaging Report ---
APPROVED REPORT CPT Code: 43599 Present Symptoms Lower Extremity Pain: Bilateral BILATERAL: Imaging reveals a patent deep venous system bilaterally. There is no evidence of thrombus within the femoral, popliteal or tibial segments. The greater saphenous veins are also within normal limits. Doppler indicates normal spontaneous flow within these segments.
--- NOTE | 2016-09-26 15:58 | Cardiology Report ---
APPROVED REPORT EKG Measurement Heart [id number] [id number] Atrial fibrillation Abnormal ECG
--- NOTE | 2016-09-26 16:10 | Diagnostic Imaging Report ---
Indications: Tense abdominal distention, recurrent ascites. Technique: Procedure, indications, risks and alternatives were explained to the patient's family who understands and gives consent to proceed. Procedure performed at bedside. The abdomen and pelvis were surveyed sonographically. The skin over the left lower quadrant was sterilely prepped and draped in usual fashion. Skin and subcutaneous soft tissues were infiltrated with 1% lidocaine and sodium bicarbonate. A small dermatotomy was made, through which an 8 Frisian paracentesis catheter was advanced under direct sonographic guidance into the peritoneal cavity. Ascites was maximally drained via vacuum apparatus. Followup imaging was performed. Catheter was removed. Dermatotomy site was manually compressed to achieve stasis, then cleansed and bandaged. Patient tolerated the procedure well without immediate complications. Ascites sent to laboratory/pathology for analysis, as ordered. Findings: Initial imaging demonstrates a moderate amount of ascites throughout the abdomen and pelvis. Post procedure imaging demonstrates near complete resolution of ascites. Paracentesis yields approximately 5000 cc of clear light yellow fluid. IMPRESSION: Ultrasound-guided paracentesis yielding 5 L of ascites.
--- NOTE | 2016-09-26 17:48 | Procedure Note ---
DATE OF PROCEDURE: 09/26/2016 SURGEON: Trevor Bojorquez M.D. ANESTHESIA: PROCEDURE: Colonoscopy with biopsy. INSTRUMENT: Olympus adult flexible colonoscope. INDICATION: Upper GI bleeding. REASON FOR PROCEDURE: The procedure, risks, benefits, and possible consequences, including hemorrhage, aspiration, perforation and infection, and alternative treatments, were explained to the patient/legal guardian by Dr. Trevor Bojorquez and the patient/legal guardian understood and accepted these risks DESCRIPTION OF PROCEDURE: After informed consent was obtained and the patient was adequately sedated, Olympus upper endoscope was advanced from mouth into the second portion of duodenum and retroflexion was performed in the stomach. The patient has severe diffuse portal hypertensive gastropathy without any active bleeding. There was evidence of may be two to three columns of grade I/maximum grade II distal esophageal varices without any stigmata of bleeding. Biopsy from the body of the stomach was obtained to document the portal hypertensive gastropathy. Otherwise, the rest of the examination within normal limit. No obvious bleeding at this time. FINDINGS: 1. Severe portal hypertensive gastropathy. Status post biopsy. 2. Distal esophageal varices grade I/II without any stigmata. RECOMMENDATIONS: The patient to clear the paracentesis today, follow biopsy results. The patient did not take the prep for colonoscopy last night, we will monitor hemoglobin and hematocrit, and if the patient has signs and symptoms of bleeding, again we will consider doing colonoscopy at that time. I want to thank, Dr. Oden, for this kind referral. Trevor Bojorquez M.D. DR: Ke JOB#: [id number] CC: Shanita Oden M.D.; Fax#: [phone]
--- NOTE | 2016-09-26 17:51 | General Progress Note ---
Assessment/Plan Assessment/Plan IMPRESSION: 1. Thrombocytopenia secondary to alcoholic liver cirrhosis. ok to continue asa, would hold off on coumadin and/or heparin sq. Also patient with DIC as haptoglobin is <29, monitor closely, given sepsis. Has a hx of hepatitis C and 5L removed via para on admission 2. Alcoholic liver cirrhosis. 3. Anemia of bleeding diathesis from hip 4. 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 5. Acute left hip periprosthetic fracture s/p repair 6. History of alcohol abuse. 7. Hepatitis C. 8. Psychosis. 9. Failure to thrive. RECOMMENDATIONS: -. DIC test is +++ thus will monitor closely for fibrinogen and treat symptomatically -. Prior admission and heme workup has been reviewed -. Ok to continue asa, would hold off on coumadin and/or heparin sq -. Watch counts, transfuse to hgb >8 (especially in light of bleeding diathesis and cirrhosis) -. Watch coagulopathy. -. Hep C rx as outpatient -. Vitamin K prn -. Appreciate consultation! Subjective Constitutional: Reports: no symptoms HEENT: Reports: no symptoms Cardiovascular: Reports: no symptoms Respiratory: Reports: no symptoms Gastrointestinal/Abdominal: Reports: poor appetite Genitourinary: Reports: no symptoms Neurologic/Psychiatric: Reports: weakness Endocrine: Reports: no symptoms Hematologic/Lymphatic: Reports: anemia Allergies: Coded Allergies: No Known Allergies (Unverified , 09/06/16) Subjective Monitoring counts closely, remains in the ICU Objective Last 24 Hour Vital Signs Date Time Temp Pulse Resp B/P Pulse Ox O2 Delivery O2 Flow Rate FiO2 09/26/16 17:00 76 09/26/16 17:00 79 15 116/71 100 Room Air 09/26/16 16:00 97.8 80 16 126/75 99 Room Air 09/26/16 15:00 74 15 114/54 99 Room Air 09/26/16 14:00 75 15 104/58 99 Room Air 09/26/16 13:00 77 15 100/60 95 Room Air 09/26/16 12:14 75 14 100 09/26/16 12:00 98.1 74 15 113/62 100 Room Air 09/26/16 11:27 78 14 98 09/26/16 11:00 77 15 123/68 100 Room Air 09/26/16 10:00 73 15 104/63 100 Room Air 09/26/16 09:00 71 15 106/72 100 Room Air 09/26/16 08:16 90/52 09/26/16 08:00 97.9 60 16 98/67 98 Room Air 09/26/16 07:00 71 15 106/65 94 Room Air 09/26/16 06:30 74 14 108/74 100 Room Air 09/26/16 06:00 71 10 126/70 100 Room Air 09/26/16 05:30 73 18 115/95 92 Room Air 09/26/16 05:00 71 14 102/66 97 Room Air 09/26/16 04:30 71 17 99/59 100 Room Air 09/26/16 04:00 97.9 66 16 99/59 99 Room Air 09/26/16 03:30 73 15 107/69 98 Room Air 09/26/16 03:00 71 15 96/69 98 Room Air 09/26/16 02:30 69 11 90/53 99 Room Air 09/26/16 02:00 71 9 101/59 96 Room Air 09/26/16 01:30 71 10 103/56 97 Room Air 09/26/16 01:00 70 9 107/65 99 Room Air 09/26/16 00:30 71 11 98/66 99 Room Air 09/26/16 00:00 69 09/26/16 00:00 98.5 73 16 97/47 100 Room Air 09/25/16 23:30 63 11 95/44 99 Room Air 09/25/16 23:00 68 15 116/64 100 Room Air 09/25/16 22:30 59 13 95/64 99 Room Air 09/25/16 22:00 66 10 123/60 100 Room Air 09/25/16 21:30 73 16 105/61 100 Room Air 09/25/16 21:15 69 17 123/97 100 Room Air 09/25/16 21:00 71 16 112/66 100 Room Air 09/25/16 20:45 73 17 107/60 100 Room Air 09/25/16 20:30 58 14 87/57 100 Room Air 09/25/16 20:15 56 15 94/54 100 Room Air 09/25/16 20:00 65 09/25/16 20:00 116/63 09/25/16 20:00 98.1 68 10 119/83 100 Room Air 09/25/16 19:45 59 14 116/63 100 Room Air 09/25/16 19:30 62 15 103/77 100 Room Air 09/25/16 19:15 85 14 90/49 100 Room Air 09/25/16 19:00 86 8 110/56 100 Room Air 09/25/16 18:48 90/51 09/25/16 18:45 90 20 105/56 100 Room Air 09/25/16 18:30 60 19 98/56 99 Room Air 09/25/16 18:00 98.5 45 19 90/56 99 Room Air Intake and Output 09/25/16 09/26/16 19:00 07:00 Intake Total 280 ml 374.665 ml Output Total 650 ml 550 ml Balance -370 ml -175.335 ml Intake Oral 280 ml IV Total 244.665 ml Other 130 ml Output Urine Total 650 ml 550 ml # Bowel Movements 4 Laboratory Tests 09/25/16 21:00: White Blood Count 9.5#, Red Blood Count 2.45L, Hemoglobin 8.6L, Hematocrit 25.1L , Mean Corpuscular Volume 103H, Mean Corpuscular Hemoglobin 35.2H, Mean Corpuscular Hemoglobin Concent 34.3, Red Cell Distribution Width 21.5H, Platelet Count 72L, Mean Platelet Volume 6.0L, Neutrophils (%) (Auto) , Lymphocytes (%) (Auto) , Monocytes (%) (Auto) , Eosinophils (%) (Auto) , Basophils (%) (Auto) , Differential Total Cells Counted 100, Neutrophils % ( Manual) 82H, Lymphocytes % (Manual) 9L, Monocytes % (Manual) 6, Eosinophils % ( Manual) 2, Basophils % (Manual) 1, Band Neutrophils 0, Platelet Estimate DecreasedL, Platelet Morphology Normal, Polychromasia 1+, Hypochromasia 2+, Anisocytosis 2+, Macrocytosis 2+, Haptoglobin < 29L, Prothrombin Time 16.7H, Prothromb Time International Ratio 1.6H, Fibrinogen 152L, Urine Random Sodium < 10, Total Bilirubin 3.0H, Direct Bilirubin 1.6H 09/26/16 04:45: White Blood Count 6.7, Red Blood Count 2.50L, Hemoglobin 8.4L, Hematocrit 25.7L , Mean Corpuscular Volume 103H, Mean Corpuscular Hemoglobin 33.7H, Mean Corpuscular Hemoglobin Concent 32.9, Red Cell Distribution Width 22.0H, Platelet Count 67L, Mean Platelet Volume 6.9, Neutrophils (%) (Auto) , Lymphocytes (%) (Auto) , Monocytes (%) (Auto) , Eosinophils (%) (Auto) , Basophils (%) (Auto) , Differential Total Cells Counted 100, Neutrophils % ( Manual) 80H, Lymphocytes % (Manual) 12L, Monocytes % (Manual) 7, Eosinophils % ( Manual) 1, Basophils % (Manual) 0, Band Neutrophils 0, Platelet Estimate DecreasedL, Platelet Morphology Normal, Hypochromasia 3+, Anisocytosis 3+, Macrocytosis 1+, Prothrombin Time 17.1H, Prothromb Time International Ratio 1.7H , Total Bilirubin 2.7H, Direct Bilirubin 1.3H, Spherocytes 2+, Activated Partial Thromboplast Time 38H, Sodium Level 132L, Potassium Level 5.3H, Chloride Level 102, Carbon Dioxide Level 21, Anion Gap 9, Blood Urea Nitrogen 45H, Creatinine 1.7H, Estimat Glomerular Filtration Rate 49.3, Glucose Level 114H, Calcium Level 8.3L, Aspartate Amino Transf (AST/SGOT) 79H, Alanine Aminotransferase (ALT/SGPT) 14, Alkaline Phosphatase 108, Total Protein 6.0L, Albumin 1.3L, Globulin 4.7, Albumin/Globulin Ratio 0.2L 09/26/16 11:20: Erythrocyte Sedimentation Rate 116H, Reticulocyte Count 4.9H, Iron Level 52L, Total Iron Binding Capacity 137L, Percent Iron Saturation 38, Unsaturated Iron Binding 85L, Lactate Dehydrogenase 374H, Alpha Fetoprotein [Pending], Carcinoembryonic Antigen 9.6H, Vitamin B12 Level > 2000H, Folate [Pending] 09/26/16 14:15: Body Fluid Source [Pending], Body Fluid Volume [Pending], Body Fluid Appearance [Pending], Body Fluid RBC [Pending], Body Fluid Total Nucleated Cells [Pending] , Body Fluid Polynuclear WBCs (%) [Pending], Body Fluid Mononuclear WBCs (%) [ Pending], Body Fluid Mesothelial Cells (%) [Pending], Body Fluid Albumin [ Pending] Height (Feet): 6 Height (Inches): 2.00 Weight (Pounds): 232 General Appearance: no apparent distress EENT: TMs normal Neck: supple Cardiovascular: regular rhythm Respiratory/Chest: lungs clear Abdomen: non tender Extremities: non-tender Edema: no edema noted Leg (L), no edema noted Leg (R) Neurologic: alert Skin: warm/dry Darren Snyder September 26, 2016 17:51
[2016-09-26] MEDS ORDERED: DOPamine 400mg/250ml 250 ML IV SCH (20:00)
[2016-09-26 20:23] LABS: APPEARANCE, BODY FLUID CLEAR; BD FL SOURCE PARACENTESIS; BD FL VOLUME 24 mL
[2016-09-26 20:24] LABS: BODY FLUID NUCLEATED CELLS 21 /CUMM; BODY FLUID RBC 1285 /CUMM; MONONUCLEAR WBC 53 %; POLYMORPHONUCLEAR WBC 28 %
[2016-09-27] VITALS (24 sets, daily range): BP systolic 86–133; BP diastolic 56–80
[2016-09-27 05:28] LABS: MEAN CORPUSCULAR HEMOGLOBIN 33.2 PG (27.0-31.0); MEAN CORPUSCULAR HGB CONC 32.6 G/DL (32.0-36.0); MEAN CORPUSCULAR VOLUME 102 FL (80-99); MEAN PLATELET VOLUME 8.3 FL (6.5-10.1); PLATELET COUNT 84 K/UL (150-450); RED BLOOD COUNT 2.81 M/UL (4.70-6.10); RED CELL DISTRIBUTION WIDTH 21.2 % (11.6-14.8); WHITE BLOOD COUNT 7.3 K/UL (4.8-10.8)
[2016-09-27 06:00] LABS: ALBUMIN/GLOBULIN RATIO 0.3 (1.0-2.7); CREATININE 1.5 mg/dL (0.7-1.2); TOTAL PROTEIN 6.4 g/dL (6.6-8.7)
[2016-09-27 06:15] LABS: MAGNESIUM 1.9 mg/dL (1.7-2.5); PHOSPHORUS 3.7 mg/dL (2.5-4.8)
[2016-09-27 06:57] LABS: BILIRUBIN,DIRECT 1.2 mg/dL (0.1-0.3)
[2016-09-27] MEDS: Pantoprazole Inj IVP SCH (08:13)
[2016-09-27] MEDS: Ascorbic Acid 500mg tab ORAL SCH (08:14)
[2016-09-27] MEDS: Lactulose 20gm/30ml UDC ORAL SCH ×2 (08:14→17:44)
[2016-09-27] MEDS: Rifaximin 550mg tab ORAL SCH ×2 (08:14→17:44)
[2016-09-27] MEDS: Docusate 100mg cap ORAL SCH ×2 (08:14→17:44)
[2016-09-27] MEDS: Aspirin EC 81mg tab ORAL SCH (08:15)
[2016-09-27 08:17] LABS: ABG PCO2 28.7 mmHg (35.0-45.0)
[2016-09-27 08:18] LABS: ABG ALLEN TEST POSITIVE; ABG BASE EXCESS -4.1
--- NOTE | 2016-09-27 09:42 | Urology Progress Note ---
Assessment/Plan Assessment/Plan 1. Urinary retention. 2. Benign prostatic hypertrophy. 3. Possible neurogenic bladder. 4. Hematuria. 5. Pyuria. 6. Proteinuria. 7. Renal insufficiency which is acute on chronic. weeks indwelling flomax and proscar dc'd monitor renal fxn voiding trial later Subjective Allergies: Coded Allergies: No Known Allergies (Unverified , 09/06/16) Subjective all noted, confused Objective Last 24 Hour Vital Signs Date Time Temp Pulse Resp B/P Pulse Ox O2 Delivery O2 Flow Rate FiO2 09/27/16 09:00 71 16 107/72 97 Room Air 09/27/16 08:00 97.8 79 15 108/56 98 Room Air 09/27/16 07:00 75 14 131/78 100 Room Air 09/27/16 06:00 74 14 128/72 99 Room Air 09/27/16 05:00 71 11 115/71 99 Room Air 09/27/16 04:00 97.9 72 10 121/76 97 Room Air 09/27/16 03:00 83 25 123/61 97 Room Air 09/27/16 02:00 76 10 112/63 98 Room Air 09/27/16 01:00 78 16 126/71 99 Room Air 09/27/16 00:00 98.0 72 14 133/65 100 Room Air 09/26/16 23:00 77 17 94/60 100 Room Air 09/26/16 22:00 85 23 130/76 100 Room Air 09/26/16 21:00 76 18 108/59 100 Room Air 09/26/16 20:06 97/57 09/26/16 20:00 97.8 75 17 109/59 100 Room Air 09/26/16 19:00 69 12 97/57 100 Room Air 09/26/16 18:00 70 16 99/59 100 Room Air 09/26/16 17:00 76 09/26/16 17:00 79 15 116/71 100 Room Air 09/26/16 16:00 97.8 80 16 126/75 99 Room Air 09/26/16 15:00 74 15 114/54 99 Room Air 09/26/16 14:00 75 15 104/58 99 Room Air 09/26/16 13:00 77 15 100/60 95 Room Air 09/26/16 12:14 75 14 100 09/26/16 12:00 98.1 74 15 113/62 100 Room Air 09/26/16 11:27 78 14 98 09/26/16 11:00 77 15 123/68 100 Room Air 09/26/16 10:00 73 15 104/63 100 Room Air Intake and Output 09/26/16 09/27/16 19:00 07:00 Intake Total 506.772 ml 1076.772 ml Output Total 1130 ml 525 ml Balance -623.228 ml 551.772 ml Intake Oral 270 ml 840 ml IV Total 236.772 ml 236.772 ml Output Urine Total 630 ml 525 ml Other 500 ml # Bowel Movements 1 Microbiology Date/Time Source Procedure Growth Status 09/25/16 21:05 Blood Blood Culture - Preliminary NO GROWTH AFTER 24 HOURS Resulted 09/24/16 02:35 Nasal Nares MRSA Culture - Final NO METHICILLIN RESISTANT STAPH AUREUS... Complete 09/26/16 14:15 Abdominal Fluid Gram Stain Pending Resulted 09/26/16 14:15 Abdominal Fluid Body Fluid Culture - Preliminary NO GROWTH Resulted Current Medications Medications (Trade) Dose Ordered Sig/Carolynn Route PRN Reason Start Time Stop Time Status Last Admin Dose Admin Acetaminophen (Tylenol) 650 mg Q4H PRN ORAL Mild Pain/Temp > 100.5 09/25/16 20:00 10/25/16 19:59 09/27/16 01:00 Acetaminophen/ Hydrocodone Bitart ([place] 5/325) 1 tab Q4H PRN ORAL Moderate Pain (Pain Scale 4-6) 09/25/16 20:30 10/02/16 20:29 09/27/16 08:15 Ascorbic Acid (Vitamin C) 500 mg DAILY ORAL 09/26/16 09:00 10/26/16 08:59 09/27/16 08:14 Aspirin (Ecotrin) 81 mg DAILY ORAL 09/26/16 09:00 10/26/16 08:59 Bisacodyl (Dulcolax) 10 mg DAILYPRN PRN RECTAL Constipation 09/25/16 21:00 10/25/16 20:59 Docusate Sodium (Colace) 100 mg TWICE A DAY ORAL 09/26/16 09:00 10/26/16 08:59 09/27/16 08:14 Dopamine HCl/ Dextrose (DOPamine 400mg/ 250ml) 250 ml @ 0 mls/hr Q24H IV 09/26/16 08:15 10/26/16 08:14 09/26/16 20:06 Ergocalciferol (Drisdol) 50,000 intlu MoTh ORAL 09/26/16 09:00 10/26/16 08:59 Lactulose (Cephulac) 30 gm BID ORAL 09/26/16 09:00 10/26/16 08:59 09/27/16 08:14 Pantoprazole (Protonix) 40 mg DAILY IVP 09/26/16 09:00 10/26/16 08:59 09/27/16 08:13 Rifaximin 550 mg 550 mg TWICE A DAY ORAL 09/26/16 09:00 10/03/16 08:59 09/27/16 08:14 Sodium Chloride 550 ml @ 0 mls/hr Q0M PRN IV PRN SBP < 95 09/25/16 20:30 10/25/16 20:29 Laboratory Tests 09/26/16 11:20: Erythrocyte Sedimentation Rate 116H, Reticulocyte Count 4.9H, Iron Level 52L, Total Iron Binding Capacity 137L, Percent Iron Saturation 38, Unsaturated Iron Binding 85L, Lactate Dehydrogenase 374H, Alpha Fetoprotein 5.6, Carcinoembryonic Antigen 9.6H, Vitamin B12 Level > 2000H, Folate [Pending] 09/26/16 14:15: Body Fluid Source Paracentesis, Body Fluid Volume 24, Body Fluid Appearance Clear, Body Fluid RBC 1285, Body Fluid Total Nucleated Cells 21, Body Fluid Polynuclear WBCs (%) 28, Body Fluid Mononuclear WBCs (%) 53, Body Fluid Mesothelial Cells (%) 19, Body Fluid Albumin [Pending] 09/27/16 04:10: White Blood Count 7.3, Red Blood Count 2.81L, Hemoglobin 9.3L, Hematocrit 28.7L , Mean Corpuscular Volume 102H, Mean Corpuscular Hemoglobin 33.2H, Mean Corpuscular Hemoglobin Concent 32.6, Red Cell Distribution Width 21.2H, Platelet Count 84L, Mean Platelet Volume 8.3, Neutrophils (%) (Auto) , Lymphocytes (%) (Auto) , Monocytes (%) (Auto) , Eosinophils (%) (Auto) , Basophils (%) (Auto) , Neutrophils % (Manual) [Pending], Lymphocytes % (Manual) [Pending], Platelet Estimate [Pending], Platelet Morphology [Pending], Sodium Level 136, Potassium Level 5.0H, Chloride Level 102, Carbon Dioxide Level 19L, Anion Gap 15, Blood Urea Nitrogen 43H, Creatinine 1.5H, Estimat Glomerular Filtration Rate 57.0, Glucose Level 114H, Calcium Level 8.0L, Phosphorus Level 3.7, Magnesium Level 1.9, Total Bilirubin 2.6H, Direct Bilirubin 1.2H, Aspartate Amino Transf (AST/SGOT) 81H, Alanine Aminotransferase (ALT/SGPT) 17, Alkaline Phosphatase 115, Total Protein 6.4L, Albumin 1.6L, Globulin 4.8, Albumin/Globulin Ratio 0.3L 09/27/16 08:05: Arterial Blood pH 7.440, Arterial Blood Partial Pressure CO2 28.7L, Arterial Blood Partial Pressure O2 77.4, Arterial Blood HCO3 19.1L, Arterial Blood Oxygen Saturation 95.4, Arterial Blood Base Excess -4.1, Rinku Test Positive Height (Feet): 6 Height (Inches): 2.00 Weight (Pounds): 232 Objective exam stable MESHA TRUONG September 27, 2016 09:42
--- NOTE | 2016-09-27 10:03 | General Progress Note ---
Assessment/Plan Assessment/Plan (1) Dementia (2) S/p Mechanical fall (3) Left hip Fracture (4) Left hip pain (5) S/p Left hip hemiarthroplasty Patient will be continued on [place] as needed. Parameters continued. D/w Dr. Donald and he concurred. Subjective Date patient seen: September 27, 2016 Time patient seen: 09:30 - am Allergies: Coded Allergies: No Known Allergies (Unverified , 09/06/16) Subjective REVIEW OF SYSTEMS: Complaining of left hip pain SUBJECTIVE: The pt is in bed in no acute distress and reports that the pain is worse with movement. Has gotten one dose of [place]. Objective Last 24 Hour Vital Signs Date Time Temp Pulse Resp B/P Pulse Ox O2 Delivery O2 Flow Rate FiO2 09/27/16 09:00 71 16 107/72 97 Room Air 09/27/16 08:00 97.8 79 15 108/56 98 Room Air 09/27/16 07:00 75 14 131/78 100 Room Air 09/27/16 06:00 74 14 128/72 99 Room Air 09/27/16 05:00 71 11 115/71 99 Room Air 09/27/16 04:00 97.9 72 10 121/76 97 Room Air 09/27/16 03:00 83 25 123/61 97 Room Air 09/27/16 02:00 76 10 112/63 98 Room Air 09/27/16 01:00 78 16 126/71 99 Room Air 09/27/16 00:00 98.0 72 14 133/65 100 Room Air 09/26/16 23:00 77 17 94/60 100 Room Air 09/26/16 22:00 85 23 130/76 100 Room Air 09/26/16 21:00 76 18 108/59 100 Room Air 09/26/16 20:06 97/57 09/26/16 20:00 97.8 75 17 109/59 100 Room Air 09/26/16 19:00 69 12 97/57 100 Room Air 09/26/16 18:00 70 16 99/59 100 Room Air 09/26/16 17:00 76 09/26/16 17:00 79 15 116/71 100 Room Air 09/26/16 16:00 97.8 80 16 126/75 99 Room Air 09/26/16 15:00 74 15 114/54 99 Room Air 09/26/16 14:00 75 15 104/58 99 Room Air 09/26/16 13:00 77 15 100/60 95 Room Air 09/26/16 12:14 75 14 100 09/26/16 12:00 98.1 74 15 113/62 100 Room Air 09/26/16 11:27 78 14 98 09/26/16 11:00 77 15 123/68 100 Room Air Intake and Output 09/26/16 09/27/16 19:00 07:00 Intake Total 506.772 ml 1076.772 ml Output Total 1130 ml 525 ml Balance -623.228 ml 551.772 ml Intake Oral 270 ml 840 ml IV Total 236.772 ml 236.772 ml Output Urine Total 630 ml 525 ml Other 500 ml # Bowel Movements 1 Laboratory Tests 09/26/16 11:20: Erythrocyte Sedimentation Rate 116H, Reticulocyte Count 4.9H, Iron Level 52L, Total Iron Binding Capacity 137L, Percent Iron Saturation 38, Unsaturated Iron Binding 85L, Lactate Dehydrogenase 374H, Alpha Fetoprotein 5.6, Carcinoembryonic Antigen 9.6H, Vitamin B12 Level > 2000H, Folate [Pending] 09/26/16 14:15: Body Fluid Source Paracentesis, Body Fluid Volume 24, Body Fluid Appearance Clear, Body Fluid RBC 1285, Body Fluid Total Nucleated Cells 21, Body Fluid Polynuclear WBCs (%) 28, Body Fluid Mononuclear WBCs (%) 53, Body Fluid Mesothelial Cells (%) 19, Body Fluid Albumin [Pending] 09/27/16 04:10: White Blood Count 7.3, Red Blood Count 2.81L, Hemoglobin 9.3L, Hematocrit 28.7L , Mean Corpuscular Volume 102H, Mean Corpuscular Hemoglobin 33.2H, Mean Corpuscular Hemoglobin Concent 32.6, Red Cell Distribution Width 21.2H, Platelet Count 84L, Mean Platelet Volume 8.3, Neutrophils (%) (Auto) , Lymphocytes (%) (Auto) , Monocytes (%) (Auto) , Eosinophils (%) (Auto) , Basophils (%) (Auto) , Neutrophils % (Manual) [Pending], Lymphocytes % (Manual) [Pending], Platelet Estimate [Pending], Platelet Morphology [Pending], Sodium Level 136, Potassium Level 5.0H, Chloride Level 102, Carbon Dioxide Level 19L, Anion Gap 15, Blood Urea Nitrogen 43H, Creatinine 1.5H, Estimat Glomerular Filtration Rate 57.0, Glucose Level 114H, Calcium Level 8.0L, Phosphorus Level 3.7, Magnesium Level 1.9, Total Bilirubin 2.6H, Direct Bilirubin 1.2H, Aspartate Amino Transf (AST/SGOT) 81H, Alanine Aminotransferase (ALT/SGPT) 17, Alkaline Phosphatase 115, Total Protein 6.4L, Albumin 1.6L, Globulin 4.8, Albumin/Globulin Ratio 0.3L 09/27/16 08:05: Arterial Blood pH 7.440, Arterial Blood Partial Pressure CO2 28.7L, Arterial Blood Partial Pressure O2 77.4, Arterial Blood HCO3 19.1L, Arterial Blood Oxygen Saturation 95.4, Arterial Blood Base Excess -4.1, Rinku Test Positive Height (Feet): 6 Height (Inches): 2.00 Weight (Pounds): 232 Objective GENERAL: Alert and awake. HEENT: PERRLA. NECK: Range of motion is full in all directions. No tenderness to paracervical muscles. LUNGS: Clear. HEART: Regular. ABDOMEN: Distended. BACK: Range of motion is decreased in flexion and extension. EXTREMITIES: Lower extremity motion is decreased over the left hip. Josué are seen over the surgical wound. Drainage noted. Tenderness to palpation. SLOAN PACKER September 27, 2016 10:03
[2016-09-27] MEDS: DOPamine 400mg/250ml 250 ML IV SCH (10:32)
--- NOTE | 2016-09-27 10:56 | GI Progress Note ---
Assessment/Plan Problems: (1) Acute hepatic encephalopathy ICD Codes: K72.00 - Acute and subacute hepatic failure without coma SNOMED: 90217373 (2) LFT elevation ICD Codes: R94.5 - Abnormal results of liver function studies SNOMED: 070984392 (3) History of alcoholism ICD Codes: F10.21 - Alcohol dependence, in remission SNOMED: 319076036 (4) Elevated CEA ICD Codes: R97.0 - Elevated carcinoembryonic antigen [CEA] SNOMED: 15217043, 565973002 (5) Anemia ICD Codes: D64.9 - Anemia, unspecified SNOMED: 553370661 Qualifiers: Qualified Codes: D64.9 - Anemia, unspecified (6) Dehydration ICD Codes: E86.0 - Dehydration SNOMED: 99490120 Status: stable, progressing Status Narrative Discussed with Dr. Bojorquez. Assessment/Plan S/P EGD - FINDINGS: 1. Severe portal hypertensive gastropathy. Status post biopsy. 2. Distal esophageal varices grade I/II without any stigmata. Hep C positive s/p paracentesis >> 5L yield >> r/o SBP ammonia WNL >> cont lactulose + Xifaxan monitor H&H, will consider colonoscopy if patient has s/sx of bleeding ppi dc propranolol fu labs Subjective Subjective limited Objective Last 24 Hour Vital Signs Date Time Temp Pulse Resp B/P Pulse Ox O2 Delivery O2 Flow Rate FiO2 09/27/16 10:32 121/57 09/27/16 10:00 73 16 127/70 98 Room Air 09/27/16 09:00 71 16 107/72 97 Room Air 09/27/16 08:00 97.8 79 15 108/56 98 Room Air 09/27/16 07:00 75 14 131/78 100 Room Air 09/27/16 06:00 74 14 128/72 99 Room Air 09/27/16 05:00 71 11 115/71 99 Room Air 09/27/16 04:00 97.9 72 10 121/76 97 Room Air 09/27/16 03:00 83 25 123/61 97 Room Air 09/27/16 02:00 76 10 112/63 98 Room Air 09/27/16 01:00 78 16 126/71 99 Room Air 09/27/16 00:00 98.0 72 14 133/65 100 Room Air 09/26/16 23:00 77 17 94/60 100 Room Air 09/26/16 22:00 85 23 130/76 100 Room Air 09/26/16 21:00 76 18 108/59 100 Room Air 09/26/16 20:06 97/57 09/26/16 20:00 97.8 75 17 109/59 100 Room Air 09/26/16 19:00 69 12 97/57 100 Room Air 09/26/16 18:00 70 16 99/59 100 Room Air 09/26/16 17:00 76 09/26/16 17:00 79 15 116/71 100 Room Air 09/26/16 16:00 97.8 80 16 126/75 99 Room Air 09/26/16 15:00 74 15 114/54 99 Room Air 09/26/16 14:00 75 15 104/58 99 Room Air 09/26/16 13:00 77 15 100/60 95 Room Air 09/26/16 12:14 75 14 100 09/26/16 12:00 98.1 74 15 113/62 100 Room Air 09/26/16 11:27 78 14 98 09/26/16 11:00 77 15 123/68 100 Room Air Intake and Output 09/26/16 09/27/16 19:00 07:00 Intake Total 506.772 ml 1076.772 ml Output Total 1130 ml 525 ml Balance -623.228 ml 551.772 ml Intake Oral 270 ml 840 ml IV Total 236.772 ml 236.772 ml Output Urine Total 630 ml 525 ml Other 500 ml # Bowel Movements 1 Laboratory Tests Test 09/26/16 11:20 09/26/16 14:15 09/27/16 04:10 09/27/16 08:05 Erythrocyte Sedimentation Rate 116 MM/HR (0-20) H Reticulocyte Count 4.9 % (0.0-2.0) H Iron Level 52 ug/dL (59-158) L Total Iron Binding Capacity 137 ug/dL (250-400) L Percent Iron Saturation 38 % (15-50) Unsaturated Iron Binding 85 ug/dL (112-346) L Lactate Dehydrogenase 374 U/L (135-230) H Alpha Fetoprotein 5.6 ng/mL (0.0-8.3) Carcinoembryonic Antigen 9.6 ng/mL H Vitamin B12 Level > 2000 pg/mL (211-946) H Folate Pending Body Fluid Source Paracentesis Body Fluid Volume 24 mL Body Fluid Appearance Clear Body Fluid RBC 1285 /CUMM Body Fluid Total Nucleated Cells 21 /CUMM Body Fluid Polynuclear WBCs (%) 28 % Body Fluid Mononuclear WBCs (%) 53 % Body Fluid Mesothelial Cells (%) 19 % Body Fluid Albumin Pending White Blood Count 7.3 K/UL (4.8-10.8) Red Blood Count 2.81 M/UL (4.70-6.10) L Hemoglobin 9.3 G/DL (14.2-18.0) L Hematocrit 28.7 % (42.0-52.0) L Mean Corpuscular Volume 102 FL (80-99) H Mean Corpuscular Hemoglobin 33.2 PG (27.0-31.0) H Mean Corpuscular Hemoglobin Concent 32.6 G/DL (32.0-36.0) Red Cell Distribution Width 21.2 % (11.6-14.8) H Platelet Count 84 K/UL (150-450) L Mean Platelet Volume 8.3 FL (6.5-10.1) Neutrophils (%) (Auto) % (45.0-75.0) Lymphocytes (%) (Auto) % (20.0-45.0) Monocytes (%) (Auto) % (1.0-10.0) Eosinophils (%) (Auto) % (0.0-3.0) Basophils (%) (Auto) % (0.0-2.0) Neutrophils % (Manual) Pending Lymphocytes % (Manual) Pending Platelet Estimate Pending Platelet Morphology Pending Sodium Level 136 mEQ/L (135-145) Potassium Level 5.0 mEQ/L (3.4-4.9) H Chloride Level 102 mEQ/L (98-107) Carbon Dioxide Level 19 mEQ/L (20-30) L Anion Gap 15 (5-15) Blood Urea Nitrogen 43 mg/dL (7-23) H Creatinine 1.5 mg/dL (0.7-1.2) H Estimat Glomerular Filtration Rate 57.0 mL/min (>60) Glucose Level 114 mg/dL (74-106) H Calcium Level 8.0 mg/dL (8.6-10.2) L Phosphorus Level 3.7 mg/dL (2.5-4.8) Magnesium Level 1.9 mg/dL (1.7-2.5) Total Bilirubin 2.6 mg/dL (0.0-1.2) H Direct Bilirubin 1.2 mg/dL (0.1-0.3) H Aspartate Amino Transf (AST/SGOT) 81 U/L (5-40) H Alanine Aminotransferase (ALT/SGPT) 17 U/L (3-41) Alkaline Phosphatase 115 U/L (40-129) Total Protein 6.4 g/dL (6.6-8.7) L Albumin 1.6 g/dL (3.5-5.2) L Globulin 4.8 g/dL Albumin/Globulin Ratio 0.3 (1.0-2.7) L Arterial Blood pH 7.440 (7.350-7.450) Arterial Blood Partial Pressure CO2 28.7 mmHg (35.0-45.0) L Arterial Blood Partial Pressure O2 77.4 mmHg (75.0-100.0) Arterial Blood HCO3 19.1 mmol/L (22.0-26.0) L Arterial Blood Oxygen Saturation 95.4 % (92.0-98.0) Arterial Blood Base Excess -4.1 Rinku Test Positive Microbiology Date/Time Source Procedure Growth Status 09/26/16 14:15 Abdominal Fluid Gram Stain Pending Resulted 09/26/16 14:15 Abdominal Fluid Body Fluid Culture - Preliminary NO GROWTH Resulted Height (Feet): 6 Height (Inches): 2.00 Weight (Pounds): 232 General Appearance: no apparent distress, alert Cardiovascular: normal rate Respiratory/Chest: normal breath sounds Abdominal Exam: soft, distended, ascites Bren Palacios N.PSong September 27, 2016 10:56
--- NOTE | 2016-09-27 11:11 | Pulmonolgy Critical Care Note ---
Critical Care - Asmt/Plan Problems: (1) Coagulopathy (2) Shock (3) End-stage liver disease (4) Elevated CEA (5) EDITH (acute kidney injury) (6) Bradycardia (7) Thrombocytopenia Respiratory: monitor respiratory rate, adjust FIO2 Cardiac: stop pressors, other - add midodrine Renal: F/U I&O Infectious Disease: check cultures, continue antibiotics, add antibiotics Gastrointestinal: continue feedings/current rate Endocrine: monitor blood sugar, check HgA1C Hematologic: monitor H/H, transfuse if hgb<8.5 Neurologic: PRN Ativan, keep patient comfortable Prophylaxis: Protonix, Heparin Disposition: keep in ICU Notes Reviewed: rn bsn, cardio, renal Discussed with: nurses, consultants, 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 [employer] - Objective Last 24 Hour Vital Signs Date Time Temp Pulse Resp B/P Pulse Ox O2 Delivery O2 Flow Rate FiO2 09/27/16 10:32 121/57 09/27/16 10:00 73 16 127/70 98 Room Air 09/27/16 09:00 71 16 107/72 97 Room Air 09/27/16 08:00 97.8 79 15 108/56 98 Room Air 09/27/16 07:00 75 14 131/78 100 Room Air 09/27/16 06:00 74 14 128/72 99 Room Air 09/27/16 05:00 71 11 115/71 99 Room Air 09/27/16 04:00 97.9 72 10 121/76 97 Room Air 09/27/16 03:00 83 25 123/61 97 Room Air 09/27/16 02:00 76 10 112/63 98 Room Air 09/27/16 01:00 78 16 126/71 99 Room Air 09/27/16 00:00 98.0 72 14 133/65 100 Room Air 09/26/16 23:00 77 17 94/60 100 Room Air 09/26/16 22:00 85 23 130/76 100 Room Air 09/26/16 21:00 76 18 108/59 100 Room Air 09/26/16 20:06 97/57 09/26/16 20:00 97.8 75 17 109/59 100 Room Air 09/26/16 19:00 69 12 97/57 100 Room Air 09/26/16 18:00 70 16 99/59 100 Room Air 09/26/16 17:00 76 09/26/16 17:00 79 15 116/71 100 Room Air 09/26/16 16:00 97.8 80 16 126/75 99 Room Air 09/26/16 15:00 74 15 114/54 99 Room Air 09/26/16 14:00 75 15 104/58 99 Room Air 09/26/16 13:00 77 15 100/60 95 Room Air 09/26/16 12:14 75 14 100 09/26/16 12:00 98.1 74 15 113/62 100 Room Air 09/26/16 11:27 78 14 98 Status: awake Condition: critical HEENT: atraumatic Neck: full ROM Lungs: chest wall tender Heart: HR/BP stable Abdomen: soft, non-tender, active bowel sounds Extremities: no C/C/E, edema Micro: Microbiology Date/Time Source Procedure Growth Status 09/25/16 21:05 Blood Blood Culture - Preliminary NO GROWTH AFTER 24 HOURS Resulted 09/25/16 21:00 Blood Blood Culture - Preliminary NO GROWTH AFTER 24 HOURS Resulted 09/25/16 21:00 Urine,Clean Catch Urine Culture - Preliminary NO GROWTH AFTER 24 HOURS Resulted 09/26/16 14:15 Abdominal Fluid Gram Stain Pending Resulted 09/26/16 14:15 Abdominal Fluid Body Fluid Culture - Preliminary NO GROWTH Resulted Critical Care - Subjective ROS Limited/Unobtainable: No ICU Day: 3 Interval Events: had paracentesis, still on dopamine drip Condition: critical EKG Rhythm: Sinus Rhythm Drips: dopamin I&O: Intake and Output 09/26/16 09/27/16 19:00 07:00 Intake Total 506.772 ml 1076.772 ml Output Total 1130 ml 525 ml Balance -623.228 ml 551.772 ml Intake Oral 270 ml 840 ml IV Total 236.772 ml 236.772 ml Output Urine Total 630 ml 525 ml Other 500 ml # Bowel Movements 1 CXR: no change Labs: Laboratory Tests Test 09/26/16 11:20 09/26/16 14:15 09/27/16 04:10 09/27/16 08:05 Erythrocyte Sedimentation Rate 116 MM/HR (0-20) H Reticulocyte Count 4.9 % (0.0-2.0) H Iron Level 52 ug/dL (59-158) L Total Iron Binding Capacity 137 ug/dL (250-400) L Percent Iron Saturation 38 % (15-50) Unsaturated Iron Binding 85 ug/dL (112-346) L Lactate Dehydrogenase 374 U/L (135-230) H Alpha Fetoprotein 5.6 ng/mL (0.0-8.3) Carcinoembryonic Antigen 9.6 ng/mL H Vitamin B12 Level > 2000 pg/mL (211-946) H Folate Pending Body Fluid Source Paracentesis Body Fluid Volume 24 mL Body Fluid Appearance Clear Body Fluid RBC 1285 /CUMM Body Fluid Total Nucleated Cells 21 /CUMM Body Fluid Polynuclear WBCs (%) 28 % Body Fluid Mononuclear WBCs (%) 53 % Body Fluid Mesothelial Cells (%) 19 % Body Fluid Albumin Pending White Blood Count 7.3 K/UL (4.8-10.8) Red Blood Count 2.81 M/UL (4.70-6.10) L Hemoglobin 9.3 G/DL (14.2-18.0) L Hematocrit 28.7 % (42.0-52.0) L Mean Corpuscular Volume 102 FL (80-99) H Mean Corpuscular Hemoglobin 33.2 PG (27.0-31.0) H Mean Corpuscular Hemoglobin Concent 32.6 G/DL (32.0-36.0) Red Cell Distribution Width 21.2 % (11.6-14.8) H Platelet Count 84 K/UL (150-450) L Mean Platelet Volume 8.3 FL (6.5-10.1) Neutrophils (%) (Auto) % (45.0-75.0) Lymphocytes (%) (Auto) % (20.0-45.0) Monocytes (%) (Auto) % (1.0-10.0) Eosinophils (%) (Auto) % (0.0-3.0) Basophils (%) (Auto) % (0.0-2.0) Neutrophils % (Manual) Pending Lymphocytes % (Manual) Pending Platelet Estimate Pending Platelet Morphology Pending Sodium Level 136 mEQ/L (135-145) Potassium Level 5.0 mEQ/L (3.4-4.9) H Chloride Level 102 mEQ/L (98-107) Carbon Dioxide Level 19 mEQ/L (20-30) L Anion Gap 15 (5-15) Blood Urea Nitrogen 43 mg/dL (7-23) H Creatinine 1.5 mg/dL (0.7-1.2) H Estimat Glomerular Filtration Rate 57.0 mL/min (>60) Glucose Level 114 mg/dL (74-106) H Calcium Level 8.0 mg/dL (8.6-10.2) L Phosphorus Level 3.7 mg/dL (2.5-4.8) Magnesium Level 1.9 mg/dL (1.7-2.5) Total Bilirubin 2.6 mg/dL (0.0-1.2) H Direct Bilirubin 1.2 mg/dL (0.1-0.3) H Aspartate Amino Transf (AST/SGOT) 81 U/L (5-40) H Alanine Aminotransferase (ALT/SGPT) 17 U/L (3-41) Alkaline Phosphatase 115 U/L (40-129) Total Protein 6.4 g/dL (6.6-8.7) L Albumin 1.6 g/dL (3.5-5.2) L Globulin 4.8 g/dL Albumin/Globulin Ratio 0.3 (1.0-2.7) L Arterial Blood pH 7.440 (7.350-7.450) Arterial Blood Partial Pressure CO2 28.7 mmHg (35.0-45.0) L Arterial Blood Partial Pressure O2 77.4 mmHg (75.0-100.0) Arterial Blood HCO3 19.1 mmol/L (22.0-26.0) L Arterial Blood Oxygen Saturation 95.4 % (92.0-98.0) Arterial Blood Base Excess -4.1 Rinku Test Positive CIRA KOCH September 27, 2016 11:11
[2016-09-27 11:35] LABS: ANISOCYTOSIS 2+; BAND NEUTROPHILS % (MANUAL) 0 % (0-8); BASOPHILS % (MANUAL) 0 % (0-2); EOSINOPHILS % (MANUAL) 3 % (0-3); HYPOCHROMASIA 1+; LYMPHOCYTES % (MANUAL) 12 % (20-45); MACROCYTES 1+; NEUTROPHILS % (MANUAL) 82 % (45-75); PLATELET ESTIMATE DECREASED; PLATELET MORPHOLOGY NORMAL; TOTAL CELLS COUNTED 100
--- NOTE | 2016-09-27 12:31 | Diagnostic Imaging Report ---
Indication: Dyspnea Comparison: 09/25/16 A single view chest radiograph was obtained. Findings: Aorta is ectatic. There is a PICC line present in good position. Bones are osteopenic. Lungs appear clear. Heart size is normal. Impression: No acute disease
[2016-09-27 13:05] LABS: OTHERS PATHOLOGIST COMMENT
[2016-09-27 13:08] LABS: OTHERS PATHOLOGIST COMMENT
[2016-09-27] MEDS: Midodrine 10mg tab ORAL SCH ×2 (13:24→17:44)
--- NOTE | 2016-09-27 13:30 | General Progress Note ---
Assessment/Plan Status: unchanged Status Narrative Cr Stable- Had 5 liters removal of Ascitis yesterday BP Low Assessment/Plan status; Acute renal failure- Severe Anemia HyperKalemia Dehydration Proteinuria UTI High INR others: 1. s/p Status post mechanical fall. 2. Left periprosthetic femoral fracture. 3. Alcoholic liver cirrhosis. 4. s/p Elevated transaminase. 5. 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 6. Elevated tumor markers (CEA, AFP/alpha-fetoprotein). 7. Acute hepatic encephalopathy. 8. Hypertension. 9. Dementia. 10. Psychosis. 11. History of hemiarthroplasty, left hip, recent. 12. Hepatitis C. 13. History of alcohol abuse. 14. Anemia of chronic disease. 15. Thrombocytopenia, secondary to alcohol abuse. Transfuse as needed Midodrine- hold mind altering meds- antibiotics - avoid nephrotoxics urine studies monitor renal parameters Tap Ascitis PRN per orders Subjective ROS Limited/Unobtainable: No Constitutional: Reports: malaise Allergies: Coded Allergies: No Known Allergies (Unverified , 09/06/16) Objective Last 24 Hour Vital Signs Date Time Temp Pulse Resp B/P Pulse Ox O2 Delivery O2 Flow Rate FiO2 09/27/16 13:00 74 15 105/80 98 Room Air 09/27/16 12:00 97.9 75 14 130/57 99 Room Air 09/27/16 11:30 68 15 86/61 99 Room Air 09/27/16 11:15 67 14 90/62 98 Room Air 09/27/16 11:00 67 13 93/65 98 Room Air 09/27/16 10:32 121/57 09/27/16 10:00 73 16 127/70 98 Room Air 09/27/16 09:00 71 16 107/72 97 Room Air 09/27/16 08:00 97.8 79 15 108/56 98 Room Air 09/27/16 07:00 75 14 131/78 100 Room Air 09/27/16 06:00 74 14 128/72 99 Room Air 09/27/16 05:00 71 11 115/71 99 Room Air 09/27/16 04:00 97.9 72 10 121/76 97 Room Air 09/27/16 03:00 83 25 123/61 97 Room Air 09/27/16 02:00 76 10 112/63 98 Room Air 09/27/16 01:00 78 16 126/71 99 Room Air 09/27/16 00:00 98.0 72 14 133/65 100 Room Air 09/26/16 23:00 77 17 94/60 100 Room Air 09/26/16 22:00 85 23 130/76 100 Room Air 09/26/16 21:00 76 18 108/59 100 Room Air 09/26/16 20:06 97/57 09/26/16 20:00 97.8 75 17 109/59 100 Room Air 09/26/16 19:00 69 12 97/57 100 Room Air 09/26/16 18:00 70 16 99/59 100 Room Air 09/26/16 17:00 76 09/26/16 17:00 79 15 116/71 100 Room Air 09/26/16 16:00 97.8 80 16 126/75 99 Room Air 09/26/16 15:00 74 15 114/54 99 Room Air 09/26/16 14:00 75 15 104/58 99 Room Air Intake and Output 09/26/16 09/27/16 19:00 07:00 Intake Total 506.772 ml 1076.772 ml Output Total 1130 ml 525 ml Balance -623.228 ml 551.772 ml Intake Oral 270 ml 840 ml IV Total 236.772 ml 236.772 ml Output Urine Total 630 ml 525 ml Other 500 ml # Bowel Movements 1 Laboratory Tests 09/26/16 14:15: Body Fluid Source Paracentesis, Body Fluid Volume 24, Body Fluid Appearance Clear, Body Fluid RBC 1285, Body Fluid Total Nucleated Cells 21, Body Fluid Polynuclear WBCs (%) 28, Body Fluid Mononuclear WBCs (%) 53, Body Fluid Mesothelial Cells (%) 19, Body Fluid Albumin [Pending] 09/27/16 04:10: White Blood Count 7.3, Red Blood Count 2.81L, Hemoglobin 9.3L, Hematocrit 28.7L , Mean Corpuscular Volume 102H, Mean Corpuscular Hemoglobin 33.2H, Mean Corpuscular Hemoglobin Concent 32.6, Red Cell Distribution Width 21.2H, Platelet Count 84L, Mean Platelet Volume 8.3, Neutrophils (%) (Auto) , Lymphocytes (%) (Auto) , Monocytes (%) (Auto) , Eosinophils (%) (Auto) , Basophils (%) (Auto) , Differential Total Cells Counted 100, Neutrophils % ( Manual) 82H, Lymphocytes % (Manual) 12L, Monocytes % (Manual) 3, Eosinophils % ( Manual) 3, Basophils % (Manual) 0, Band Neutrophils 0, Platelet Estimate DecreasedL, Platelet Morphology Normal, Hypochromasia 1+, Anisocytosis 2+, Macrocytosis 1+, Sodium Level 136, Potassium Level 5.0H, Chloride Level 102, Carbon Dioxide Level 19L, Anion Gap 15, Blood Urea Nitrogen 43H, Creatinine 1.5H , Estimat Glomerular Filtration Rate 57.0, Glucose Level 114H, Calcium Level 8.0L, Phosphorus Level 3.7, Magnesium Level 1.9, Total Bilirubin 2.6H, Direct Bilirubin 1.2H, Aspartate Amino Transf (AST/SGOT) 81H, Alanine Aminotransferase (ALT/SGPT) 17, Alkaline Phosphatase 115, Total Protein 6.4L, Albumin 1.6L, Globulin 4.8, Albumin/Globulin Ratio 0.3L 09/27/16 08:05: Arterial Blood pH 7.440, Arterial Blood Partial Pressure CO2 28.7L, Arterial Blood Partial Pressure O2 77.4, Arterial Blood HCO3 19.1L, Arterial Blood Oxygen Saturation 95.4, Arterial Blood Base Excess -4.1, Rinku Test Positive Height (Feet): 6 Height (Inches): 2.00 Weight (Pounds): 232 General Appearance: no apparent distress Cardiovascular: normal rate Respiratory/Chest: decreased breath sounds Abdomen: distended Objective no change in PE PRINCESS PALACIO September 27, 2016 13:30
--- NOTE | 2016-09-27 14:42 | General Progress Note ---
Assessment/Plan Status: unchanged Assessment/Plan 1. Shock: ddx, cardiogenic secondary to arrythmai, DIC?! 2. Bradycardia-junctional rythm 3.Bleeding diatheses from the postoperative left-sided hip area. 4. Left-sided hip fracture, status post complicated course of infection and revision surgery in [facility] in August 2016. 5. Acute anemia. 6. Anxiety and depression. 5. Dementia. 6. Alcoholic cirrhosis. 7. Hypercoagulable state. 8. Iron deficiency anemia. 9. Pain management. 11. A/C Renal failure 12. Ascites: S/p paracenthesis twice 10. Gastrointestinal and deep vein thrombosis prophylaxis. Plan: Will hold all alpha blockers and All psychotropic medications for now continue Midodrine and optimise to achieve MAP greater than 65 Ok to continue ASA, per [facility] Notes are reviewed Poor Prognosis Subjective ROS Limited/Unobtainable: Yes Allergies: Coded Allergies: No Known Allergies (Unverified , 09/06/16) Objective Last 24 Hour Vital Signs Date Time Temp Pulse Resp B/P Pulse Ox O2 Delivery O2 Flow Rate FiO2 09/27/16 13:00 74 15 105/80 98 Room Air 09/27/16 12:00 97.9 75 14 130/57 99 Room Air 09/27/16 11:30 68 15 86/61 99 Room Air 09/27/16 11:15 67 14 90/62 98 Room Air 09/27/16 11:00 67 13 93/65 98 Room Air 09/27/16 10:32 121/57 09/27/16 10:00 73 16 127/70 98 Room Air 09/27/16 09:00 71 16 107/72 97 Room Air 09/27/16 08:00 97.8 79 15 108/56 98 Room Air 09/27/16 07:00 75 14 131/78 100 Room Air 09/27/16 06:00 74 14 128/72 99 Room Air 09/27/16 05:00 71 11 115/71 99 Room Air 09/27/16 04:00 97.9 72 10 121/76 97 Room Air 09/27/16 03:00 83 25 123/61 97 Room Air 09/27/16 02:00 76 10 112/63 98 Room Air 09/27/16 01:00 78 16 126/71 99 Room Air 09/27/16 00:00 98.0 72 14 133/65 100 Room Air 09/26/16 23:00 77 17 94/60 100 Room Air 09/26/16 22:00 85 23 130/76 100 Room Air 09/26/16 21:00 76 18 108/59 100 Room Air 09/26/16 20:06 97/57 09/26/16 20:00 97.8 75 17 109/59 100 Room Air 09/26/16 19:00 69 12 97/57 100 Room Air 09/26/16 18:00 70 16 99/59 100 Room Air 09/26/16 17:00 76 09/26/16 17:00 79 15 116/71 100 Room Air 09/26/16 16:00 97.8 80 16 126/75 99 Room Air 09/26/16 15:00 74 15 114/54 99 Room Air Intake and Output 09/26/16 09/27/16 19:00 07:00 Intake Total 506.772 ml 1076.772 ml Output Total 1130 ml 525 ml Balance -623.228 ml 551.772 ml Intake Oral 270 ml 840 ml IV Total 236.772 ml 236.772 ml Output Urine Total 630 ml 525 ml Other 500 ml # Bowel Movements 1 Laboratory Tests 09/27/16 04:10: White Blood Count 7.3, Red Blood Count 2.81L, Hemoglobin 9.3L, Hematocrit 28.7L , Mean Corpuscular Volume 102H, Mean Corpuscular Hemoglobin 33.2H, Mean Corpuscular Hemoglobin Concent 32.6, Red Cell Distribution Width 21.2H, Platelet Count 84L, Mean Platelet Volume 8.3, Neutrophils (%) (Auto) , Lymphocytes (%) (Auto) , Monocytes (%) (Auto) , Eosinophils (%) (Auto) , Basophils (%) (Auto) , Differential Total Cells Counted 100, Neutrophils % ( Manual) 82H, Lymphocytes % (Manual) 12L, Monocytes % (Manual) 3, Eosinophils % ( Manual) 3, Basophils % (Manual) 0, Band Neutrophils 0, Platelet Estimate DecreasedL, Platelet Morphology Normal, Hypochromasia 1+, Anisocytosis 2+, Macrocytosis 1+, Sodium Level 136, Potassium Level 5.0H, Chloride Level 102, Carbon Dioxide Level 19L, Anion Gap 15, Blood Urea Nitrogen 43H, Creatinine 1.5H , Estimat Glomerular Filtration Rate 57.0, Glucose Level 114H, Calcium Level 8.0L, Phosphorus Level 3.7, Magnesium Level 1.9, Total Bilirubin 2.6H, Direct Bilirubin 1.2H, Aspartate Amino Transf (AST/SGOT) 81H, Alanine Aminotransferase (ALT/SGPT) 17, Alkaline Phosphatase 115, Total Protein 6.4L, Albumin 1.6L, Globulin 4.8, Albumin/Globulin Ratio 0.3L 09/27/16 08:05: Arterial Blood pH 7.440, Arterial Blood Partial Pressure CO2 28.7L, Arterial Blood Partial Pressure O2 77.4, Arterial Blood HCO3 19.1L, Arterial Blood Oxygen Saturation 95.4, Arterial Blood Base Excess -4.1, Rinku Test Positive Height (Feet): 6 Height (Inches): 2.00 Weight (Pounds): 232 General Appearance: no apparent distress EENT: PERRL/EOMI Neck: supple Cardiovascular: bradycardia Respiratory/Chest: crackles/rales Abdomen: other - signigicant distention Extremities: swelling Edema: 1+ Leg (R), 1+ Pedal (L) Neurologic: disoriented, other - demented at base line Shanita Oden MD September 27, 2016 14:42
--- NOTE | 2016-09-27 17:19 | General Progress Note ---
Assessment/Plan Assessment/Plan IMPRESSION: 1. Thrombocytopenia secondary to alcoholic liver cirrhosis. ok to continue asa, would hold off on coumadin and/or heparin sq. Also patient with DIC as haptoglobin is <29, monitor closely, given sepsis. Has a hx of hepatitis C and 5L removed via para on admission 2. Alcoholic liver cirrhosis. 3. Anemia of bleeding diathesis from hip 4. 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 5. Acute left hip periprosthetic fracture s/p repair 6. History of alcohol abuse. 7. Hepatitis C. 8. Psychosis. 9. Failure to thrive. RECOMMENDATIONS: -. DIC test is ++ thus will monitor closely for fibrinogen and treat symptomatically -. Prior admission and heme workup has been reviewed -. Ok to continue asa, would hold off on coumadin and/or heparin sq -. Watch counts, transfuse to hgb >8 (especially in light of bleeding diathesis and cirrhosis) -. Watch coagulopathy. -. Gi service followup -. Hep C rx as outpatient -. Vitamin K prn -. Appreciate consultation!! Subjective HEENT: Reports: no symptoms Cardiovascular: Reports: no symptoms Respiratory: Reports: no symptoms Gastrointestinal/Abdominal: Reports: poor appetite Genitourinary: Reports: no symptoms Neurologic/Psychiatric: Reports: no symptoms Endocrine: Reports: no symptoms Hematologic/Lymphatic: Reports: no symptoms Allergies: Coded Allergies: No Known Allergies (Unverified , 09/06/16) Subjective Monitoring counts closely, patient in the ICU still Objective Last 24 Hour Vital Signs Date Time Temp Pulse Resp B/P Pulse Ox O2 Delivery O2 Flow Rate FiO2 09/27/16 16:00 97.9 79 14 120/60 98 Room Air 09/27/16 15:00 70 15 102/62 98 Room Air 09/27/16 14:00 72 14 126/64 98 Room Air 09/27/16 13:00 74 15 105/80 98 Room Air 09/27/16 12:00 97.9 75 14 130/57 99 Room Air 09/27/16 11:30 68 15 86/61 99 Room Air 09/27/16 11:15 67 14 90/62 98 Room Air 09/27/16 11:00 67 13 93/65 98 Room Air 09/27/16 10:32 121/57 09/27/16 10:00 73 16 127/70 98 Room Air 09/27/16 09:00 71 16 107/72 97 Room Air 09/27/16 08:00 97.8 79 15 108/56 98 Room Air 09/27/16 07:00 75 14 131/78 100 Room Air 09/27/16 06:00 74 14 128/72 99 Room Air 09/27/16 05:00 71 11 115/71 99 Room Air 09/27/16 04:00 97.9 72 10 121/76 97 Room Air 09/27/16 03:00 83 25 123/61 97 Room Air 09/27/16 02:00 76 10 112/63 98 Room Air 09/27/16 01:00 78 16 126/71 99 Room Air 09/27/16 00:00 98.0 72 14 133/65 100 Room Air 09/26/16 23:00 77 17 94/60 100 Room Air 09/26/16 22:00 85 23 130/76 100 Room Air 09/26/16 21:00 76 18 108/59 100 Room Air 09/26/16 20:06 97/57 09/26/16 20:00 97.8 75 17 109/59 100 Room Air 09/26/16 19:00 69 12 97/57 100 Room Air 09/26/16 18:00 70 16 99/59 100 Room Air Intake and Output 09/26/16 09/27/16 19:00 07:00 Intake Total 506.772 ml 1076.772 ml Output Total 1130 ml 525 ml Balance -623.228 ml 551.772 ml Intake Oral 270 ml 840 ml IV Total 236.772 ml 236.772 ml Output Urine Total 630 ml 525 ml Other 500 ml # Bowel Movements 1 Laboratory Tests 09/27/16 04:10: White Blood Count 7.3, Red Blood Count 2.81L, Hemoglobin 9.3L, Hematocrit 28.7L , Mean Corpuscular Volume 102H, Mean Corpuscular Hemoglobin 33.2H, Mean Corpuscular Hemoglobin Concent 32.6, Red Cell Distribution Width 21.2H, Platelet Count 84L, Mean Platelet Volume 8.3, Neutrophils (%) (Auto) , Lymphocytes (%) (Auto) , Monocytes (%) (Auto) , Eosinophils (%) (Auto) , Basophils (%) (Auto) , Differential Total Cells Counted 100, Neutrophils % ( Manual) 82H, Lymphocytes % (Manual) 12L, Monocytes % (Manual) 3, Eosinophils % ( Manual) 3, Basophils % (Manual) 0, Band Neutrophils 0, Platelet Estimate DecreasedL, Platelet Morphology Normal, Hypochromasia 1+, Anisocytosis 2+, Macrocytosis 1+, Sodium Level 136, Potassium Level 5.0H, Chloride Level 102, Carbon Dioxide Level 19L, Anion Gap 15, Blood Urea Nitrogen 43H, Creatinine 1.5H , Estimat Glomerular Filtration Rate 57.0, Glucose Level 114H, Calcium Level 8.0L, Phosphorus Level 3.7, Magnesium Level 1.9, Total Bilirubin 2.6H, Direct Bilirubin 1.2H, Aspartate Amino Transf (AST/SGOT) 81H, Alanine Aminotransferase (ALT/SGPT) 17, Alkaline Phosphatase 115, Total Protein 6.4L, Albumin 1.6L, Globulin 4.8, Albumin/Globulin Ratio 0.3L 09/27/16 08:05: Arterial Blood pH 7.440, Arterial Blood Partial Pressure CO2 28.7L, Arterial Blood Partial Pressure O2 77.4, Arterial Blood HCO3 19.1L, Arterial Blood Oxygen Saturation 95.4, Arterial Blood Base Excess -4.1, Rinku Test Positive Height (Feet): 6 Height (Inches): 2.00 Weight (Pounds): 232 General Appearance: lethargic EENT: TMs normal Neck: supple, normal inspection Cardiovascular: regular rhythm Respiratory/Chest: normal breath sounds Genitourinary/Rectal: heme negative stool Extremities: non-tender Edema: 1+ Leg (L), 1+ Leg (R) Edema: mild edema Neurologic: alert Skin: warm/dry Darren Snyder September 27, 2016 17:19
[2016-09-27] MEDS ORDERED: Sodium Chloride 550 ML IV PRN (18:30)
--- NOTE | 2016-09-27 18:49 | Infectious Diseases Prog Note ---
Assessment/Plan Assessment/Plan A: No evid of sepsis at this time SP Hypotension Doubt :SPB No evidence of surgical site infection at this time Hepatitis C antibody + HIV : neg SP Paracentesis Depression Hypotension due to bradycardia Dementia Alcohol abuse Anemia History of left hip surgery four months ago CT of the pelvis, left hip : hemiarthroplasty, fracture of intertrochanteric region of the femur, soft tissue swelling, hematoma, and ascites PLAN: Monitor the patient off of antibiotics Monitor CBC Monitor BMP. Monitor cultures of the blood and urine Subjective Constitutional: Denies: anorexia, chills, drenching sweats, fatigue, fever, no symptoms, other Allergies: Coded Allergies: No Known Allergies (Unverified , 09/06/16) Subjective Objective Vital Signs Last 24 Hour Vital Signs Date Time Temp Pulse Resp B/P Pulse Ox O2 Delivery O2 Flow Rate FiO2 09/27/16 18:00 78 16 119/72 98 Room Air 09/27/16 17:00 77 16 95/57 96 Room Air 09/27/16 17:00 69 09/27/16 16:00 97.9 79 14 120/60 98 Room Air 09/27/16 15:00 70 15 102/62 98 Room Air 09/27/16 14:00 72 14 126/64 98 Room Air 09/27/16 13:00 74 15 105/80 98 Room Air 09/27/16 12:00 97.9 75 14 130/57 99 Room Air 09/27/16 12:00 78 09/27/16 11:30 68 15 86/61 99 Room Air 09/27/16 11:15 67 14 90/62 98 Room Air 09/27/16 11:00 67 13 93/65 98 Room Air 09/27/16 10:32 121/57 09/27/16 10:00 73 16 127/70 98 Room Air 09/27/16 09:00 71 16 107/72 97 Room Air 09/27/16 08:00 72 09/27/16 08:00 97.8 79 15 108/56 98 Room Air 09/27/16 07:00 75 14 131/78 100 Room Air 09/27/16 06:00 74 14 128/72 99 Room Air 09/27/16 05:00 71 11 115/71 99 Room Air 09/27/16 04:00 97.9 72 10 121/76 97 Room Air 09/27/16 03:00 83 25 123/61 97 Room Air 09/27/16 02:00 76 10 112/63 98 Room Air 09/27/16 01:00 78 16 126/71 99 Room Air 09/27/16 00:00 98.0 72 14 133/65 100 Room Air 09/26/16 23:00 77 17 94/60 100 Room Air 09/26/16 22:00 85 23 130/76 100 Room Air 09/26/16 21:00 76 18 108/59 100 Room Air 09/26/16 20:06 97/57 09/26/16 20:00 97.8 75 17 109/59 100 Room Air 09/26/16 19:00 69 12 97/57 100 Room Air Height (Feet): 6 Height (Inches): 2.00 Weight (Pounds): 232 HEENT: anicteric Respiratory/Chest: normal breath sounds Cardiovascular: regularly irregular Abdomen: no organomegaly Microbiology Date/Time Source Procedure Growth Status 09/25/16 21:05 Blood Blood Culture - Preliminary NO GROWTH AFTER 24 HOURS Resulted 09/25/16 21:00 Blood Blood Culture - Preliminary NO GROWTH AFTER 24 HOURS Resulted 09/25/16 21:00 Urine,Clean Catch Urine Culture - Preliminary NO GROWTH AFTER 24 HOURS Resulted 09/26/16 14:15 Abdominal Fluid Gram Stain - Final Resulted 09/26/16 14:15 Abdominal Fluid Body Fluid Culture - Preliminary NO GROWTH Resulted Laboratory Tests Test 09/27/16 04:10 09/27/16 08:05 White Blood Count 7.3 K/UL (4.8-10.8) Red Blood Count 2.81 M/UL (4.70-6.10) L Hemoglobin 9.3 G/DL (14.2-18.0) L Hematocrit 28.7 % (42.0-52.0) L Mean Corpuscular Volume 102 FL (80-99) H Mean Corpuscular Hemoglobin 33.2 PG (27.0-31.0) H Mean Corpuscular Hemoglobin Concent 32.6 G/DL (32.0-36.0) Red Cell Distribution Width 21.2 % (11.6-14.8) H Platelet Count 84 K/UL (150-450) L Mean Platelet Volume 8.3 FL (6.5-10.1) Neutrophils (%) (Auto) % (45.0-75.0) Lymphocytes (%) (Auto) % (20.0-45.0) Monocytes (%) (Auto) % (1.0-10.0) Eosinophils (%) (Auto) % (0.0-3.0) Basophils (%) (Auto) % (0.0-2.0) Differential Total Cells Counted 100 Neutrophils % (Manual) 82 % (45-75) H Lymphocytes % (Manual) 12 % (20-45) L Monocytes % (Manual) 3 % (1-10) Eosinophils % (Manual) 3 % (0-3) Basophils % (Manual) 0 % (0-2) Band Neutrophils 0 % (0-8) Platelet Estimate Decreased L Platelet Morphology Normal Hypochromasia 1+ Anisocytosis 2+ Macrocytosis 1+ Sodium Level 136 mEQ/L (135-145) Potassium Level 5.0 mEQ/L (3.4-4.9) H Chloride Level 102 mEQ/L (98-107) Carbon Dioxide Level 19 mEQ/L (20-30) L Anion Gap 15 (5-15) Blood Urea Nitrogen 43 mg/dL (7-23) H Creatinine 1.5 mg/dL (0.7-1.2) H Estimat Glomerular Filtration Rate 57.0 mL/min (>60) Glucose Level 114 mg/dL (74-106) H Calcium Level 8.0 mg/dL (8.6-10.2) L Phosphorus Level 3.7 mg/dL (2.5-4.8) Magnesium Level 1.9 mg/dL (1.7-2.5) Total Bilirubin 2.6 mg/dL (0.0-1.2) H Direct Bilirubin 1.2 mg/dL (0.1-0.3) H Aspartate Amino Transf (AST/SGOT) 81 U/L (5-40) H Alanine Aminotransferase (ALT/SGPT) 17 U/L (3-41) Alkaline Phosphatase 115 U/L (40-129) Total Protein 6.4 g/dL (6.6-8.7) L Albumin 1.6 g/dL (3.5-5.2) L Globulin 4.8 g/dL Albumin/Globulin Ratio 0.3 (1.0-2.7) L Arterial Blood pH 7.440 (7.350-7.450) Arterial Blood Partial Pressure CO2 28.7 mmHg (35.0-45.0) L Arterial Blood Partial Pressure O2 77.4 mmHg (75.0-100.0) Arterial Blood HCO3 19.1 mmol/L (22.0-26.0) L Arterial Blood Oxygen Saturation 95.4 % (92.0-98.0) Arterial Blood Base Excess -4.1 Rinku Test Positive Current Medications Medications (Trade) Dose Ordered Sig/Carolynn Route PRN Reason Start Time Stop Time Status Last Admin Dose Admin Acetaminophen (Tylenol) 650 mg Q4H PRN ORAL Mild Pain/Temp > 100.5 09/27/16 19:00 10/27/16 18:59 Acetaminophen/ Hydrocodone Bitart ([place] 5/325) 1 tab Q4H PRN ORAL Moderate Pain (Pain Scale 4-6) 09/27/16 19:00 10/04/16 18:59 Ascorbic Acid (Vitamin C) 500 mg DAILY ORAL 09/28/16 09:00 10/28/16 08:59 Aspirin (Ecotrin) 81 mg DAILY ORAL 09/28/16 09:00 10/28/16 08:59 Bisacodyl (Dulcolax) 10 mg DAILYPRN PRN RECTAL Constipation 09/27/16 19:00 10/27/16 18:59 Docusate Sodium (Colace) 100 mg TWICE A DAY ORAL 09/28/16 09:00 10/28/16 08:59 Ergocalciferol (Drisdol) 50,000 intlu MoTh ORAL 09/30/16 09:00 10/30/16 08:59 Lactulose (Cephulac) 30 gm BID ORAL 09/28/16 09:00 10/28/16 08:59 Midodrine (Pro-Amatine) 10 mg THREE TIMES A DAY ORAL 09/28/16 09:00 10/28/16 08:59 Pantoprazole (Protonix) 40 mg DAILY IVP 09/28/16 09:00 10/28/16 08:59 Rifaximin (Xifaxan) 550 mg TWICE A DAY ORAL 09/28/16 09:00 10/05/16 08:59 Sodium Chloride (NS) 550 ml @ 0 mls/hr Q0M PRN IV PRN SBP < 95 09/27/16 18:30 10/27/16 18:29 CHAY DOMINGO M.D. September 27, 2016 18:49
[2016-09-27] MEDS ORDERED: Norco 5mg/325mg tab ORAL PRN (19:00)
[2016-09-28] VITALS (7 sets, daily range): BP systolic 101–146; BP diastolic 57–93
[2016-09-28 08:41] LABS: MEAN CORPUSCULAR HEMOGLOBIN 33.8 PG (27.0-31.0); MEAN CORPUSCULAR HGB CONC 32.1 G/DL (32.0-36.0); MEAN CORPUSCULAR VOLUME 105 FL (80-99); MEAN PLATELET VOLUME 6.6 FL (6.5-10.1); PLATELET COUNT 74 K/UL (150-450); RED BLOOD COUNT 2.89 M/UL (4.70-6.10); RED CELL DISTRIBUTION WIDTH 21.8 % (11.6-14.8); WHITE BLOOD COUNT 6.4 K/UL (4.8-10.8)
[2016-09-28 09:00] LABS: ALBUMIN/GLOBULIN RATIO 0.3 (1.0-2.7); CALCIUM 8.2 mg/dL (8.6-10.2); CREATININE 1.5 mg/dL (0.7-1.2); POTASSIUM 4.8 mEQ/L (3.4-4.9); TOTAL PROTEIN 6.4 g/dL (6.6-8.7)
[2016-09-28] MEDS ORDERED: Ascorbic Acid 500mg tab ORAL SCH (09:00)
[2016-09-28] MEDS ORDERED: Aspirin EC 81mg tab ORAL SCH (09:00)
[2016-09-28] MEDS ORDERED: Pantoprazole Inj IVP SCH (09:00)
[2016-09-28] MEDS: Lactulose 20gm/30ml UDC ORAL SCH ×3 (09:03→17:37)
[2016-09-28] MEDS: Rifaximin 550mg tab ORAL SCH ×2 (09:03→17:30)
[2016-09-28] MEDS: Docusate 100mg cap ORAL SCH ×2 (09:03→17:29)
[2016-09-28] MEDS: Midodrine 10mg tab ORAL SCH ×3 (09:04→17:29)
[2016-09-28 09:20] LABS: BILIRUBIN,DIRECT 1.3 mg/dL (0.1-0.3)
--- NOTE | 2016-09-28 09:30 | Urology Progress Note ---
Assessment/Plan Assessment/Plan 1. Urinary retention. 2. Benign prostatic hypertrophy. 3. Possible neurogenic bladder. 4. Hematuria. 5. Pyuria. 6. Proteinuria. 7. Renal insufficiency which is acute on chronic. weeks indwelling flomax and proscar dc'd monitor renal fxn voiding trial later Subjective Allergies: Coded Allergies: No Known Allergies (Unverified , 09/06/16) Subjective all noted, tx out of ICU Objective Last 24 Hour Vital Signs Date Time Temp Pulse Resp B/P Pulse Ox O2 Delivery O2 Flow Rate FiO2 09/28/16 07:47 97.5 84 20 115/65 99 Room Air 09/28/16 04:09 98.3 79 20 111/75 98 Room Air 09/28/16 00:13 98.1 77 19 106/60 96 Room Air 09/27/16 20:42 98.5 58 20 113/58 98 Room Air 09/27/16 19:00 98.5 58 20 113/58 98 Room Air 09/27/16 18:00 78 16 119/72 98 Room Air 09/27/16 17:00 77 16 95/57 96 Room Air 09/27/16 17:00 69 09/27/16 16:00 97.9 79 14 120/60 98 Room Air 09/27/16 15:00 70 15 102/62 98 Room Air 09/27/16 14:00 72 14 126/64 98 Room Air 09/27/16 13:00 74 15 105/80 98 Room Air 09/27/16 12:00 97.9 75 14 130/57 99 Room Air 09/27/16 12:00 78 09/27/16 11:30 68 15 86/61 99 Room Air 09/27/16 11:15 67 14 90/62 98 Room Air 09/27/16 11:00 67 13 93/65 98 Room Air 09/27/16 10:32 121/57 09/27/16 10:00 73 16 127/70 98 Room Air Intake and Output 09/27/16 09/28/16 19:00 07:00 Intake Total 556.549 ml Output Total 430 ml Balance 126.549 ml Intake Oral 450 ml IV Total 106.549 ml Output Urine Total 430 ml # Bowel Movements 3 Microbiology Date/Time Source Procedure Growth Status 09/25/16 21:05 Blood Blood Culture - Preliminary NO GROWTH AFTER 48 HOURS Resulted 09/24/16 02:35 Nasal Nares MRSA Culture - Final NO METHICILLIN RESISTANT STAPH AUREUS... Complete 09/25/16 21:00 Urine,Clean Catch Urine Culture - Final NO GROWTH AFTER 48 HOURS Complete 09/26/16 14:15 Abdominal Fluid Gram Stain - Final Resulted 09/26/16 14:15 Abdominal Fluid Body Fluid Culture - Preliminary NO GROWTH AFTER 48 HOURS Resulted Current Medications Medications (Trade) Dose Ordered Sig/Carolynn Route PRN Reason Start Time Stop Time Status Last Admin Dose Admin Acetaminophen (Tylenol) 650 mg Q4H PRN ORAL Mild Pain/Temp > 100.5 09/27/16 19:00 10/27/16 18:59 Acetaminophen/ Hydrocodone Bitart ([place] 5/325) 1 tab Q4H PRN ORAL Moderate Pain (Pain Scale 4-6) 09/27/16 19:00 10/04/16 18:59 Ascorbic Acid (Vitamin C) 500 mg DAILY ORAL 09/28/16 09:00 10/28/16 08:59 09/28/16 09:03 Aspirin (Ecotrin) 81 mg DAILY ORAL 09/28/16 09:00 10/28/16 08:59 09/28/16 09:04 Bisacodyl (Dulcolax) 10 mg DAILYPRN PRN RECTAL Constipation 09/27/16 19:00 10/27/16 18:59 Docusate Sodium (Colace) 100 mg TWICE A DAY ORAL 09/28/16 09:00 10/28/16 08:59 09/28/16 09:03 Ergocalciferol (Drisdol) 50,000 intlu MoTh ORAL 09/30/16 09:00 10/30/16 08:59 Lactulose (Cephulac) 30 gm BID ORAL 09/28/16 09:00 10/28/16 08:59 09/28/16 09:03 Midodrine (Pro-Amatine) 10 mg THREE TIMES A DAY ORAL 09/28/16 09:00 10/28/16 08:59 09/28/16 09:04 Pantoprazole (Protonix) 40 mg DAILY IVP 09/28/16 09:00 10/28/16 08:59 09/28/16 09:05 Rifaximin (Xifaxan) 550 mg TWICE A DAY ORAL 09/28/16 09:00 10/05/16 08:59 09/28/16 09:03 Sodium Chloride (NS) 550 ml @ 0 mls/hr Q0M PRN IV PRN SBP < 95 09/27/16 18:30 10/27/16 18:29 Laboratory Tests 09/28/16 07:10: White Blood Count 6.4, Red Blood Count 2.89L, Hemoglobin 9.8L, Hematocrit 30.4L , Mean Corpuscular Volume 105H, Mean Corpuscular Hemoglobin 33.8H, Mean Corpuscular Hemoglobin Concent 32.1, Red Cell Distribution Width 21.8H, Platelet Count 74L, Mean Platelet Volume 6.6, Neutrophils (%) (Auto) , Lymphocytes (%) (Auto) , Monocytes (%) (Auto) , Eosinophils (%) (Auto) , Basophils (%) (Auto) , Neutrophils % (Manual) [Pending], Lymphocytes % (Manual) [Pending], Platelet Estimate [Pending], Platelet Morphology [Pending], Sodium Level 134L, Potassium Level 4.8, Chloride Level 101, Carbon Dioxide Level 20, Anion Gap 13, Blood Urea Nitrogen 42H, Creatinine 1.5H, Estimat Glomerular Filtration Rate 57.0, Glucose Level 75, Calcium Level 8.2L, Total Bilirubin 2.8H , Direct Bilirubin 1.3H, Aspartate Amino Transf (AST/SGOT) 97H, Alanine Aminotransferase (ALT/SGPT) 21, Alkaline Phosphatase 125, Pro-B-Type Natriuretic Peptide 281H, Total Protein 6.4L, Albumin 1.6L, Globulin 4.8, Albumin/Globulin Ratio 0.3L Height (Feet): 6 Height (Inches): 2.00 Weight (Pounds): 232 Objective exam stable MESHA TRUONG September 28, 2016 09:30
--- NOTE | 2016-09-28 10:17 | General Progress Note ---
Assessment/Plan Status: stable Assessment/Plan 1. Shock: ddx, cardiogenic secondary to arrythmai, DIC?! 2. Bradycardia-junctional rythm 3.Bleeding diatheses from the postoperative left-sided hip area. 4. Left-sided hip fracture, status post complicated course of infection and revision surgery in [facility] in August 2016. 5. Acute anemia. 6. Anxiety and depression. 5. Dementia. 6. Alcoholic cirrhosis. 7. Hypercoagulable state. 8. Iron deficiency anemia. 9. Pain management. 11. A/C Renal failure 12. Ascites: S/p paracenthesis twice 10. Gastrointestinal and deep vein thrombosis prophylaxis. Plan: Will hold all alpha blockers and All psychotropic medications for now continue Midodrine and optimise to achieve MAP greater than 65 Ok to continue ASA, per [facility] Notes are reviewed Poor Prognosis, but stable at this time Subjective ROS Limited/Unobtainable: Yes Allergies: Coded Allergies: No Known Allergies (Unverified , 09/06/16) Objective Last 24 Hour Vital Signs Date Time Temp Pulse Resp B/P Pulse Ox O2 Delivery O2 Flow Rate FiO2 09/28/16 08:00 81 09/28/16 07:47 97.5 84 20 115/65 99 Room Air 09/28/16 04:09 98.3 79 20 111/75 98 Room Air 09/28/16 00:13 98.1 77 19 106/60 96 Room Air 09/27/16 20:42 98.5 58 20 113/58 98 Room Air 09/27/16 19:00 98.5 58 20 113/58 98 Room Air 09/27/16 18:00 78 16 119/72 98 Room Air 09/27/16 17:00 77 16 95/57 96 Room Air 09/27/16 17:00 69 09/27/16 16:00 97.9 79 14 120/60 98 Room Air 09/27/16 15:00 70 15 102/62 98 Room Air 09/27/16 14:00 72 14 126/64 98 Room Air 09/27/16 13:00 74 15 105/80 98 Room Air 09/27/16 12:00 97.9 75 14 130/57 99 Room Air 09/27/16 12:00 78 09/27/16 11:30 68 15 86/61 99 Room Air 09/27/16 11:15 67 14 90/62 98 Room Air 09/27/16 11:00 67 13 93/65 98 Room Air 09/27/16 10:32 121/57 Intake and Output 09/27/16 09/28/16 19:00 07:00 Intake Total 556.549 ml Output Total 430 ml Balance 126.549 ml Intake Oral 450 ml IV Total 106.549 ml Output Urine Total 430 ml # Bowel Movements 3 Laboratory Tests 09/28/16 07:10: White Blood Count 6.4, Red Blood Count 2.89L, Hemoglobin 9.8L, Hematocrit 30.4L , Mean Corpuscular Volume 105H, Mean Corpuscular Hemoglobin 33.8H, Mean Corpuscular Hemoglobin Concent 32.1, Red Cell Distribution Width 21.8H, Platelet Count 74L, Mean Platelet Volume 6.6, Neutrophils (%) (Auto) , Lymphocytes (%) (Auto) , Monocytes (%) (Auto) , Eosinophils (%) (Auto) , Basophils (%) (Auto) , Neutrophils % (Manual) [Pending], Lymphocytes % (Manual) [Pending], Platelet Estimate [Pending], Platelet Morphology [Pending], Sodium Level 134L, Potassium Level 4.8, Chloride Level 101, Carbon Dioxide Level 20, Anion Gap 13, Blood Urea Nitrogen 42H, Creatinine 1.5H, Estimat Glomerular Filtration Rate 57.0, Glucose Level 75, Calcium Level 8.2L, Total Bilirubin 2.8H , Direct Bilirubin 1.3H, Aspartate Amino Transf (AST/SGOT) 97H, Alanine Aminotransferase (ALT/SGPT) 21, Alkaline Phosphatase 125, Pro-B-Type Natriuretic Peptide 281H, Total Protein 6.4L, Albumin 1.6L, Globulin 4.8, Albumin/Globulin Ratio 0.3L Height (Feet): 6 Height (Inches): 2.00 Weight (Pounds): 232 General Appearance: no apparent distress EENT: PERRL/EOMI Neck: supple Cardiovascular: normal rate Respiratory/Chest: lungs clear Abdomen: other - marked ascitis Extremities: non-tender Edema: 2+ Leg (R), 2+ Pedal (L), 2+ Pedal (R) 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
[2016-09-28 11:25] LABS: EOSINOPHILS % (MANUAL) 4 % (0-3); LYMPHOCYTES % (MANUAL) 14 % (20-45); NEUTROPHILS % (MANUAL) 76 % (45-75); TOTAL CELLS COUNTED 100
[2016-09-28 11:26] LABS: ANISOCYTOSIS 2+; BAND NEUTROPHILS % (MANUAL) 0 % (0-8); BASOPHILS % (MANUAL) 0 % (0-2); HYPOCHROMASIA 1+; MACROCYTES 1+; PLATELET ESTIMATE DECREASED; PLATELET MORPHOLOGY NORMAL
--- NOTE | 2016-09-28 11:38 | General Progress Note ---
Assessment/Plan Status: stable - from renal stand point Status Narrative Cr stable Assessment/Plan status; Acute renal failure- Severe Anemia HyperKalemia Dehydration Proteinuria UTI High INR others: 1. s/p Status post mechanical fall. 2. Left periprosthetic femoral fracture. 3. Alcoholic liver cirrhosis. 4. s/p Elevated transaminase. 5. 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 6. Elevated tumor markers (CEA, AFP/alpha-fetoprotein). 7. Acute hepatic encephalopathy. 8. Hypertension. 9. Dementia. 10. Psychosis. 11. History of hemiarthroplasty, left hip, recent. 12. Hepatitis C. 13. History of alcohol abuse. 14. Anemia of chronic disease. 15. Thrombocytopenia, secondary to alcohol abuse. Transfuse as needed Midodrine- hold mind altering meds- antibiotics - avoid nephrotoxics urine studies monitor renal parameters Tap Ascitis PRN per orders Subjective ROS Limited/Unobtainable: No Constitutional: Reports: malaise Allergies: Coded Allergies: No Known Allergies (Unverified , 09/06/16) Objective Last 24 Hour Vital Signs Date Time Temp Pulse Resp B/P Pulse Ox O2 Delivery O2 Flow Rate FiO2 09/28/16 11:24 97.8 83 20 118/73 96 Room Air 09/28/16 08:00 81 09/28/16 07:47 97.5 84 20 115/65 99 Room Air 09/28/16 04:09 98.3 79 20 111/75 98 Room Air 09/28/16 00:13 98.1 77 19 106/60 96 Room Air 09/27/16 20:42 98.5 58 20 113/58 98 Room Air 09/27/16 19:00 98.5 58 20 113/58 98 Room Air 09/27/16 18:00 78 16 119/72 98 Room Air 09/27/16 17:00 77 16 95/57 96 Room Air 09/27/16 17:00 69 09/27/16 16:00 97.9 79 14 120/60 98 Room Air 09/27/16 15:00 70 15 102/62 98 Room Air 09/27/16 14:00 72 14 126/64 98 Room Air 09/27/16 13:00 74 15 105/80 98 Room Air 09/27/16 12:00 97.9 75 14 130/57 99 Room Air 09/27/16 12:00 78 Intake and Output 09/27/16 09/28/16 19:00 07:00 Intake Total 556.549 ml Output Total 430 ml Balance 126.549 ml Intake Oral 450 ml IV Total 106.549 ml Output Urine Total 430 ml # Bowel Movements 3 Laboratory Tests 09/28/16 07:10: White Blood Count 6.4, Red Blood Count 2.89L, Hemoglobin 9.8L, Hematocrit 30.4L , Mean Corpuscular Volume 105H, Mean Corpuscular Hemoglobin 33.8H, Mean Corpuscular Hemoglobin Concent 32.1, Red Cell Distribution Width 21.8H, Platelet Count 74L, Mean Platelet Volume 6.6, Neutrophils (%) (Auto) , Lymphocytes (%) (Auto) , Monocytes (%) (Auto) , Eosinophils (%) (Auto) , Basophils (%) (Auto) , Differential Total Cells Counted 100, Neutrophils % ( Manual) 76H, Lymphocytes % (Manual) 14L, Monocytes % (Manual) 6, Eosinophils % ( Manual) 4H, Basophils % (Manual) 0, Band Neutrophils 0, Platelet Estimate DecreasedL, Platelet Morphology Normal, Hypochromasia 1+, Anisocytosis 2+, Macrocytosis 1+, Sodium Level 134L, Potassium Level 4.8, Chloride Level 101, Carbon Dioxide Level 20, Anion Gap 13, Blood Urea Nitrogen 42H, Creatinine 1.5H , Estimat Glomerular Filtration Rate 57.0, Glucose Level 75, Calcium Level 8.2L , Total Bilirubin 2.8H, Direct Bilirubin 1.3H, Aspartate Amino Transf (AST/SGOT ) 97H, Alanine Aminotransferase (ALT/SGPT) 21, Alkaline Phosphatase 125, Pro-B- Type Natriuretic Peptide 281H, Total Protein 6.4L, Albumin 1.6L, Globulin 4.8, Albumin/Globulin Ratio 0.3L Height (Feet): 6 Height (Inches): 2.00 Weight (Pounds): 232 General Appearance: no apparent distress Objective no change in PE PRINCESS PALACIO September 28, 2016 11:38
--- NOTE | 2016-09-28 11:50 | Diagnostic Imaging Report ---
Indication: Dyspnea Comparison: 09/27/16 A single view chest radiograph was obtained. Findings: No definite infiltrate or pulmonary vascular congestion identified. The heart is enlarged. The aorta is mildly enlarged consistent with atherosclerotic vascular disease. The bones are osteopenic. PICC line is in good position. Impression: No acute disease
[2016-09-28] MEDS ORDERED: Lotrisone Cream 15gm TOPIC SCH (12:00)
--- NOTE | 2016-09-28 15:06 | General Progress Note ---
Assessment/Plan Assessment/Plan Assessment/Plan Problems: (1) Acute hepatic encephalopathy ICD Codes: K72.00 - Acute and subacute hepatic failure without coma SNOMED: 82679566 (2) LFT elevation/cirrhosis ICD Codes: R94.5 - Abnormal results of liver function studies SNOMED: 719582190 (3) History of alcoholism ICD Codes: F10.21 - Alcohol dependence, in remission SNOMED: 402096648 (4) Elevated CEA ICD Codes: R97.0 - Elevated carcinoembryonic antigen [CEA] SNOMED: 61642619, 619911229 (5) Anemia ICD Codes: D64.9 - Anemia, unspecified SNOMED: 849380461 Qualifiers: Qualified Codes: D64.9 - Anemia, unspecified (6) Dehydration ICD Codes: E86.0 - Dehydration SNOMED: 88503673 Status: stable, progressing Assessment/Plan S/P EGD - FINDINGS: 1. Severe portal hypertensive gastropathy. Status post biopsy. 2. Distal esophageal varices grade I/II without any stigmata. Hep C positive s/p paracentesis >> 5L yield >> r/o SBP ammonia WNL >> cont lactulose + Xifaxan monitor H&H, will consider colonoscopy if patient has s/sx of bleeding ppi dc propranolol fu labs Subjective Allergies: Coded Allergies: No Known Allergies (Unverified , 09/06/16) Subjective above noted poor historian not hungry Objective Last 24 Hour Vital Signs Date Time Temp Pulse Resp B/P Pulse Ox O2 Delivery O2 Flow Rate FiO2 09/28/16 12:00 80 09/28/16 11:24 97.8 83 20 118/73 96 Room Air 09/28/16 08:00 81 09/28/16 07:47 97.5 84 20 115/65 99 Room Air 09/28/16 04:09 98.3 79 20 111/75 98 Room Air 09/28/16 00:13 98.1 77 19 106/60 96 Room Air 09/27/16 20:42 98.5 58 20 113/58 98 Room Air 09/27/16 19:00 98.5 58 20 113/58 98 Room Air 09/27/16 18:00 78 16 119/72 98 Room Air 09/27/16 17:00 77 16 95/57 96 Room Air 09/27/16 17:00 69 5/5/17 16:00 97.9 79 14 120/60 98 Room Air Intake and Output 09/27/16 09/28/16 19:00 07:00 Intake Total 556.549 ml Output Total 430 ml Balance 126.549 ml Intake Oral 450 ml IV Total 106.549 ml Output Urine Total 430 ml # Bowel Movements 3 Laboratory Tests 09/28/16 07:10: White Blood Count 6.4, Red Blood Count 2.89L, Hemoglobin 9.8L, Hematocrit 30.4L , Mean Corpuscular Volume 105H, Mean Corpuscular Hemoglobin 33.8H, Mean Corpuscular Hemoglobin Concent 32.1, Red Cell Distribution Width 21.8H, Platelet Count 74L, Mean Platelet Volume 6.6, Neutrophils (%) (Auto) , Lymphocytes (%) (Auto) , Monocytes (%) (Auto) , Eosinophils (%) (Auto) , Basophils (%) (Auto) , Differential Total Cells Counted 100, Neutrophils % ( Manual) 76H, Lymphocytes % (Manual) 14L, Monocytes % (Manual) 6, Eosinophils % ( Manual) 4H, Basophils % (Manual) 0, Band Neutrophils 0, Platelet Estimate DecreasedL, Platelet Morphology Normal, Hypochromasia 1+, Anisocytosis 2+, Macrocytosis 1+, Sodium Level 134L, Potassium Level 4.8, Chloride Level 101, Carbon Dioxide Level 20, Anion Gap 13, Blood Urea Nitrogen 42H, Creatinine 1.5H , Estimat Glomerular Filtration Rate 57.0, Glucose Level 75, Calcium Level 8.2L , Total Bilirubin 2.8H, Direct Bilirubin 1.3H, Aspartate Amino Transf (AST/SGOT ) 97H, Alanine Aminotransferase (ALT/SGPT) 21, Alkaline Phosphatase 125, Pro-B- Type Natriuretic Peptide 281H, Total Protein 6.4L, Albumin 1.6L, Globulin 4.8, Albumin/Globulin Ratio 0.3L Height (Feet): 6 Height (Inches): 2.00 Weight (Pounds): 232 Objective WDWN AA man NCAT supple CTA RRR soft ND NT no edema non focal CELIO SMALL September 28, 2016 15:06
--- NOTE | 2016-09-28 17:13 | General Progress Note ---
Assessment/Plan Assessment/Plan Assessment/Plan Assessment/Plan IMPRESSION: 1. Thrombocytopenia secondary to alcoholic liver cirrhosis. ok to continue asa, would hold off on coumadin and/or heparin sq. Also patient with DIC as haptoglobin is <29, monitor closely, given sepsis. Has a hx of hepatitis C and 5L removed via para on admission 2. Alcoholic liver cirrhosis. 3. Anemia of bleeding diathesis from hip 4. 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 5. Acute left hip periprosthetic fracture s/p repair 6. History of alcohol abuse. 7. Hepatitis C. 8. Psychosis. 9. Failure to thrive. RECOMMENDATIONS: -. DIC test is ++ thus will monitor closely for fibrinogen and treat symptomatically -. Prior admission and heme workup has been reviewed -. Ok to continue asa, would hold off on coumadin and/or heparin sq -. Watch counts, transfuse to hgb >8 (especially in light of bleeding diathesis and cirrhosis) -. Watch coagulopathy. -. Gi service followup -. Hep C rx as outpatient -. Vitamin K chani Snyder M.D. Subjective Constitutional: Reports: no symptoms HEENT: Reports: no symptoms Cardiovascular: Reports: no symptoms Respiratory: Reports: no symptoms Gastrointestinal/Abdominal: Reports: no symptoms Genitourinary: Reports: no symptoms Neurologic/Psychiatric: Reports: no symptoms Endocrine: Reports: no symptoms Hematologic/Lymphatic: Reports: no symptoms Allergies: Coded Allergies: No Known Allergies (Unverified , 09/06/16) Objective Last 24 Hour Vital Signs Date Time Temp Pulse Resp B/P Pulse Ox O2 Delivery O2 Flow Rate FiO2 09/28/16 16:00 77 09/28/16 15:37 97.1 89 20 133/92 95 Room Air 09/28/16 12:00 80 09/28/16 11:24 97.8 83 20 118/73 96 Room Air 09/28/16 08:00 81 09/28/16 07:47 97.5 84 20 115/65 99 Room Air 09/28/16 04:09 98.3 79 20 111/75 98 Room Air 09/28/16 00:13 98.1 77 19 106/60 96 Room Air 09/27/16 20:42 98.5 58 20 113/58 98 Room Air 09/27/16 19:00 98.5 58 20 113/58 98 Room Air 09/27/16 18:00 78 16 119/72 98 Room Air Intake and Output 09/27/16 09/28/16 19:00 07:00 Intake Total 556.549 ml Output Total 430 ml Balance 126.549 ml Intake Oral 450 ml IV Total 106.549 ml Output Urine Total 430 ml # Bowel Movements 3 Laboratory Tests 09/28/16 07:10: White Blood Count 6.4, Red Blood Count 2.89L, Hemoglobin 9.8L, Hematocrit 30.4L , Mean Corpuscular Volume 105H, Mean Corpuscular Hemoglobin 33.8H, Mean Corpuscular Hemoglobin Concent 32.1, Red Cell Distribution Width 21.8H, Platelet Count 74L, Mean Platelet Volume 6.6, Neutrophils (%) (Auto) , Lymphocytes (%) (Auto) , Monocytes (%) (Auto) , Eosinophils (%) (Auto) , Basophils (%) (Auto) , Differential Total Cells Counted 100, Neutrophils % ( Manual) 76H, Lymphocytes % (Manual) 14L, Monocytes % (Manual) 6, Eosinophils % ( Manual) 4H, Basophils % (Manual) 0, Band Neutrophils 0, Platelet Estimate DecreasedL, Platelet Morphology Normal, Hypochromasia 1+, Anisocytosis 2+, Macrocytosis 1+, Sodium Level 134L, Potassium Level 4.8, Chloride Level 101, Carbon Dioxide Level 20, Anion Gap 13, Blood Urea Nitrogen 42H, Creatinine 1.5H , Estimat Glomerular Filtration Rate 57.0, Glucose Level 75, Calcium Level 8.2L , Total Bilirubin 2.8H, Direct Bilirubin 1.3H, Aspartate Amino Transf (AST/SGOT ) 97H, Alanine Aminotransferase (ALT/SGPT) 21, Alkaline Phosphatase 125, Pro-B- Type Natriuretic Peptide 281H, Total Protein 6.4L, Albumin 1.6L, Globulin 4.8, Albumin/Globulin Ratio 0.3L Height (Feet): 6 Height (Inches): 2.00 Weight (Pounds): 232 General Appearance: no apparent distress EENT: normal ENT inspection Neck: supple Cardiovascular: normal rate Respiratory/Chest: lungs clear Abdomen: soft Pelvis: no masses Genitourinary/Rectal: normal rectal exam Extremities: normal inspection Edema: no edema noted Arm (L), no edema noted Arm (R), no edema noted Leg (L), no edema noted Leg (R), no edema noted Pedal (L), no edema noted Pedal (R), no edema noted Generalized Edema: mild edema Neurologic: alert Skin: warm/dry Lymphatic: normal anterior cervical (L), normal anterior cervical (R), normal axillary (L), normal axillary (R), normal inguinal (L), normal inguinal (R), normal other, normal posterior cervical (L), normal posterior cervical (R), normal submandibular (L), normal submandibular (R), normal supraclavicular (L), normal supraclavicular (R) ANATOLIY SNYDER September 28, 2016 17:13
--- NOTE | 2016-09-28 17:56 | Infectious Diseases Prog Note ---
Assessment/Plan Assessment/Plan A: No evid of sepsis at this time SP Hypotension Doubt :SPB No evidence of surgical site infection at this time Hepatitis C antibody + HIV : neg SP Paracentesis Depression Hypotension due to bradycardia Dementia Alcohol abuse Anemia History of left hip surgery four months ago CT of the pelvis, left hip : hemiarthroplasty, fracture of intertrochanteric region of the femur, soft tissue swelling, hematoma, and ascites PLAN: Monitor the patient off of antibiotics Monitor CBC Monitor BMP. Monitor cultures of the blood and urine Subjective Constitutional: Denies: anorexia, chills, drenching sweats, fatigue, fever, no symptoms, other Allergies: Coded Allergies: No Known Allergies (Unverified , 09/06/16) Subjective Objective Vital Signs Last 24 Hour Vital Signs Date Time Temp Pulse Resp B/P Pulse Ox O2 Delivery O2 Flow Rate FiO2 09/28/16 16:00 77 09/28/16 15:37 97.1 89 20 133/92 95 Room Air 09/28/16 12:00 80 09/28/16 11:24 97.8 83 20 118/73 96 Room Air 09/28/16 08:00 81 09/28/16 07:47 97.5 84 20 115/65 99 Room Air 09/28/16 04:09 98.3 79 20 111/75 98 Room Air 09/28/16 00:13 98.1 77 19 106/60 96 Room Air 09/27/16 20:42 98.5 58 20 113/58 98 Room Air 09/27/16 19:00 98.5 58 20 113/58 98 Room Air 09/27/16 18:00 78 16 119/72 98 Room Air Height (Feet): 6 Height (Inches): 2.00 Weight (Pounds): 232 HEENT: atraumatic Respiratory/Chest: normal breath sounds Cardiovascular: regular rhythm Abdomen: soft, non tender Microbiology Date/Time Source Procedure Growth Status 09/25/16 21:05 Blood Blood Culture - Preliminary NO GROWTH AFTER 48 HOURS Resulted 09/25/16 21:00 Blood Blood Culture - Preliminary NO GROWTH AFTER 48 HOURS Resulted 09/25/16 21:00 Urine,Clean Catch Urine Culture - Final NO GROWTH AFTER 48 HOURS Complete 09/26/16 14:15 Abdominal Fluid Gram Stain - Final Resulted 09/26/16 14:15 Abdominal Fluid Body Fluid Culture - Preliminary NO GROWTH AFTER 48 HOURS Resulted Laboratory Tests Test 09/28/16 07:10 White Blood Count 6.4 K/UL (4.8-10.8) Red Blood Count 2.89 M/UL (4.70-6.10) L Hemoglobin 9.8 G/DL (14.2-18.0) L Hematocrit 30.4 % (42.0-52.0) L Mean Corpuscular Volume 105 FL (80-99) H Mean Corpuscular Hemoglobin 33.8 PG (27.0-31.0) H Mean Corpuscular Hemoglobin Concent 32.1 G/DL (32.0-36.0) Red Cell Distribution Width 21.8 % (11.6-14.8) H Platelet Count 74 K/UL (150-450) L Mean Platelet Volume 6.6 FL (6.5-10.1) Neutrophils (%) (Auto) % (45.0-75.0) Lymphocytes (%) (Auto) % (20.0-45.0) Monocytes (%) (Auto) % (1.0-10.0) Eosinophils (%) (Auto) % (0.0-3.0) Basophils (%) (Auto) % (0.0-2.0) Differential Total Cells Counted 100 Neutrophils % (Manual) 76 % (45-75) H Lymphocytes % (Manual) 14 % (20-45) L Monocytes % (Manual) 6 % (1-10) Eosinophils % (Manual) 4 % (0-3) H Basophils % (Manual) 0 % (0-2) Band Neutrophils 0 % (0-8) Platelet Estimate Decreased L Platelet Morphology Normal Hypochromasia 1+ Anisocytosis 2+ Macrocytosis 1+ Sodium Level 134 mEQ/L (135-145) L Potassium Level 4.8 mEQ/L (3.4-4.9) Chloride Level 101 mEQ/L (98-107) Carbon Dioxide Level 20 mEQ/L (20-30) Anion Gap 13 (5-15) Blood Urea Nitrogen 42 mg/dL (7-23) H Creatinine 1.5 mg/dL (0.7-1.2) H Estimat Glomerular Filtration Rate 57.0 mL/min (>60) Glucose Level 75 mg/dL (74-106) Calcium Level 8.2 mg/dL (8.6-10.2) L Total Bilirubin 2.8 mg/dL (0.0-1.2) H Direct Bilirubin 1.3 mg/dL (0.1-0.3) H Aspartate Amino Transf (AST/SGOT) 97 U/L (5-40) H Alanine Aminotransferase (ALT/SGPT) 21 U/L (3-41) Alkaline Phosphatase 125 U/L (40-129) Pro-B-Type Natriuretic Peptide 281 pg/mL (0-125) H Total Protein 6.4 g/dL (6.6-8.7) L Albumin 1.6 g/dL (3.5-5.2) L Globulin 4.8 g/dL Albumin/Globulin Ratio 0.3 (1.0-2.7) L Current Medications Medications (Trade) Dose Ordered Sig/Carolynn Route PRN Reason Start Time Stop Time Status Last Admin Dose Admin Acetaminophen (Tylenol) 650 mg Q4H PRN ORAL Mild Pain/Temp > 100.5 09/27/16 19:00 10/27/16 18:59 Acetaminophen/ Hydrocodone Bitart ([place] 5/325) 1 tab Q4H PRN ORAL Moderate Pain (Pain Scale 4-6) 09/27/16 19:00 10/04/16 18:59 09/28/16 17:29 Ascorbic Acid (Vitamin C) 500 mg DAILY ORAL 09/28/16 09:00 10/28/16 08:59 09/28/16 09:03 Aspirin (Ecotrin) 81 mg DAILY ORAL 09/28/16 09:00 10/28/16 08:59 09/28/16 09:04 Betamethasone/ Clotrimazole (Lotrisone) 1 applic Q12HR TOPIC 09/28/16 12:00 10/28/16 11:59 09/28/16 13:29 Bisacodyl (Dulcolax) 10 mg DAILYPRN PRN RECTAL Constipation 09/27/16 19:00 10/27/16 18:59 Docusate Sodium (Colace) 100 mg TWICE A DAY ORAL 09/28/16 09:00 10/28/16 08:59 09/28/16 17:29 Ergocalciferol (Drisdol) 50,000 intlu MoTh ORAL 09/30/16 09:00 10/30/16 08:59 Lactulose (Cephulac) 30 gm BID ORAL 09/28/16 09:00 10/28/16 08:59 09/28/16 09:03 Midodrine (Pro-Amatine) 10 mg THREE TIMES A DAY ORAL 09/28/16 09:00 10/28/16 08:59 09/28/16 17:29 Pantoprazole (Protonix) 40 mg DAILY IVP 09/28/16 09:00 10/28/16 08:59 09/28/16 09:05 Rifaximin (Xifaxan) 550 mg TWICE A DAY ORAL 09/28/16 09:00 10/05/16 08:59 09/28/16 17:30 Sodium Chloride (NS) 550 ml @ 0 mls/hr Q0M PRN IV PRN SBP < 95 09/27/16 18:30 10/27/16 18:29 CHAY DOMINGO M.D. September 28, 2016 17:56
[2016-09-28] MEDS ORDERED: Sodium Chloride 550 ML IV PRN (21:30)
--- NOTE | 2016-09-28 21:54 | Pulmonology Progress Note ---
Subjective Allergies: Coded Allergies: No Known Allergies (Unverified , 09/06/16) Objective Last 24 Hour Vital Signs Date Time Temp Pulse Resp B/P Pulse Ox O2 Delivery O2 Flow Rate FiO2 09/28/16 20:30 98.8 79 20 101/57 100 Room Air 09/28/16 18:25 97.1 09/28/16 16:00 77 09/28/16 15:37 97.1 89 20 133/92 95 Room Air 09/28/16 12:00 80 09/28/16 11:24 97.8 83 20 118/73 96 Room Air 09/28/16 08:00 81 09/28/16 07:47 97.5 84 20 115/65 99 Room Air 09/28/16 04:09 98.3 79 20 111/75 98 Room Air 09/28/16 00:13 98.1 77 19 106/60 96 Room Air Intake and Output 09/27/16 09/28/16 19:00 07:00 Intake Total 556.549 ml Output Total 430 ml Balance 126.549 ml Intake Oral 450 ml IV Total 106.549 ml Output Urine Total 430 ml # Bowel Movements 3 Microbiology Date/Time Source Procedure Growth Status 09/26/16 14:15 Abdominal Fluid Gram Stain - Final Resulted 09/26/16 14:15 Abdominal Fluid Body Fluid Culture - Preliminary NO GROWTH AFTER 48 HOURS Resulted Laboratory Tests 09/28/16 07:10: White Blood Count 6.4, Red Blood Count 2.89L, Hemoglobin 9.8L, Hematocrit 30.4L , Mean Corpuscular Volume 105H, Mean Corpuscular Hemoglobin 33.8H, Mean Corpuscular Hemoglobin Concent 32.1, Red Cell Distribution Width 21.8H, Platelet Count 74L, Mean Platelet Volume 6.6, Neutrophils (%) (Auto) , Lymphocytes (%) (Auto) , Monocytes (%) (Auto) , Eosinophils (%) (Auto) , Basophils (%) (Auto) , Differential Total Cells Counted 100, Neutrophils % ( Manual) 76H, Lymphocytes % (Manual) 14L, Monocytes % (Manual) 6, Eosinophils % ( Manual) 4H, Basophils % (Manual) 0, Band Neutrophils 0, Platelet Estimate DecreasedL, Platelet Morphology Normal, Hypochromasia 1+, Anisocytosis 2+, Macrocytosis 1+, Sodium Level 134L, Potassium Level 4.8, Chloride Level 101, Carbon Dioxide Level 20, Anion Gap 13, Blood Urea Nitrogen 42H, Creatinine 1.5H , Estimat Glomerular Filtration Rate 57.0, Glucose Level 75, Calcium Level 8.2L , Total Bilirubin 2.8H, Direct Bilirubin 1.3H, Aspartate Amino Transf (AST/SGOT ) 97H, Alanine Aminotransferase (ALT/SGPT) 21, Alkaline Phosphatase 125, Pro-B- Type Natriuretic Peptide 281H, Total Protein 6.4L, Albumin 1.6L, Globulin 4.8, Albumin/Globulin Ratio 0.3L Current Medications Medications (Trade) Dose Ordered Sig/Carolynn Route PRN Reason Start Time Stop Time Status Last Admin Dose Admin Acetaminophen (Tylenol) 650 mg Q4H PRN ORAL Mild Pain/Temp > 100.5 09/28/16 23:00 10/28/16 22:59 Acetaminophen/ Hydrocodone Bitart ([place] 5/325) 1 tab Q4H PRN ORAL Moderate Pain (Pain Scale 4-6) 09/28/16 23:00 10/05/16 22:59 Ascorbic Acid (Vitamin C) 500 mg DAILY ORAL 09/29/16 09:00 10/29/16 08:59 Aspirin (Ecotrin) 81 mg DAILY ORAL 09/29/16 09:00 10/29/16 08:59 Betamethasone/ Clotrimazole (Lotrisone) 1 applic Q12HR TOPIC 09/29/16 09:00 10/29/16 08:59 Bisacodyl (Dulcolax) 10 mg DAILYPRN PRN RECTAL Constipation 09/29/16 19:00 10/29/16 18:59 Docusate Sodium (Colace) 100 mg TWICE A DAY ORAL 09/29/16 09:00 10/29/16 08:59 Ergocalciferol (Drisdol) 50,000 intlu MoTh ORAL 09/30/16 09:00 10/30/16 08:59 Lactulose (Cephulac) 30 gm BID ORAL 09/29/16 09:00 10/29/16 08:59 Midodrine (Pro-Amatine) 10 mg THREE TIMES A DAY ORAL 09/29/16 09:00 10/29/16 08:59 Pantoprazole (Protonix) 40 mg DAILY IVP 09/29/16 09:00 10/29/16 08:59 Rifaximin (Xifaxan) 550 mg TWICE A DAY ORAL 09/29/16 09:00 10/06/16 08:59 Sodium Chloride (NS) 550 ml @ 0 mls/hr Q0M PRN IV PRN SBP < 95 09/28/16 21:30 10/28/16 21:29 CIRA KOCH September 28, 2016 21:53
[2016-09-29] VITALS (7 sets, daily range): BP systolic 118–165; BP diastolic 66–100
--- NOTE | 2016-09-29 08:51 | Urology Progress Note ---
Assessment/Plan Assessment/Plan 1. Urinary retention. 2. Benign prostatic hypertrophy. 3. Possible neurogenic bladder. 4. Hematuria. 5. Pyuria. 6. Proteinuria. 7. Renal insufficiency which is acute on chronic. weeks indwelling flomax and proscar dc'd, resume if ok from medical standpoint monitor renal fxn voiding trial later Subjective Allergies: Coded Allergies: No Known Allergies (Unverified , 09/06/16) Subjective all noted, feels fair Objective Last 24 Hour Vital Signs Date Time Temp Pulse Resp B/P Pulse Ox O2 Delivery O2 Flow Rate FiO2 09/29/16 04:00 97.0 79 18 120/66 98 Room Air 09/29/16 00:00 97.5 76 18 118/72 98 Room Air 09/28/16 21:15 98.1 82 18 146/93 98 Room Air 09/28/16 20:30 98.8 79 20 101/57 100 Room Air 09/28/16 18:25 97.1 09/28/16 16:00 77 09/28/16 15:37 97.1 89 20 133/92 95 Room Air 09/28/16 12:00 80 09/28/16 11:24 97.8 83 20 118/73 96 Room Air Intake and Output 09/28/16 09/29/16 19:00 07:00 Intake Total 460 ml Balance 460 ml Intake Oral 460 ml # Bowel Movements 5 2 Microbiology Date/Time Source Procedure Growth Status 09/25/16 21:05 Blood Blood Culture - Preliminary NO GROWTH AFTER 72 HOURS Resulted 09/24/16 02:35 Nasal Nares MRSA Culture - Final NO METHICILLIN RESISTANT STAPH AUREUS... Complete 09/25/16 21:00 Urine,Clean Catch Urine Culture - Final NO GROWTH AFTER 48 HOURS Complete 09/26/16 14:15 Abdominal Fluid Gram Stain - Final Resulted 09/26/16 14:15 Abdominal Fluid Body Fluid Culture - Preliminary NO GROWTH AFTER 48 HOURS Resulted Current Medications Medications (Trade) Dose Ordered Sig/Carolynn Route PRN Reason Start Time Stop Time Status Last Admin Dose Admin Acetaminophen (Tylenol) 650 mg Q4H PRN ORAL Mild Pain/Temp > 100.5 09/28/16 23:00 10/28/16 22:59 Acetaminophen/ Hydrocodone Bitart ([place] 5/325) 1 tab Q4H PRN ORAL Moderate Pain (Pain Scale 4-6) 09/28/16 23:00 10/05/16 22:59 Ascorbic Acid (Vitamin C) 500 mg DAILY ORAL 09/29/16 09:00 10/29/16 08:59 Aspirin (Ecotrin) 81 mg DAILY ORAL 09/29/16 09:00 10/29/16 08:59 Betamethasone/ Clotrimazole (Lotrisone) 1 applic Q12HR TOPIC 09/29/16 09:00 10/29/16 08:59 Bisacodyl (Dulcolax) 10 mg DAILYPRN PRN RECTAL Constipation 09/29/16 19:00 10/29/16 18:59 Docusate Sodium (Colace) 100 mg TWICE A DAY ORAL 09/29/16 09:00 10/29/16 08:59 Ergocalciferol (Drisdol) 50,000 intlu MoTh ORAL 09/30/16 09:00 10/30/16 08:59 Lactulose (Cephulac) 30 gm BID ORAL 09/29/16 09:00 10/29/16 08:59 Midodrine (Pro-Amatine) 10 mg THREE TIMES A DAY ORAL 09/29/16 09:00 10/29/16 08:59 Pantoprazole (Protonix) 40 mg DAILY IVP 09/29/16 09:00 10/29/16 08:59 Rifaximin (Xifaxan) 550 mg TWICE A DAY ORAL 09/29/16 09:00 10/06/16 08:59 Sodium Chloride (NS) 550 ml @ 0 mls/hr Q0M PRN IV PRN SBP < 95 09/28/16 21:30 10/28/16 21:29 Height (Feet): 6 Height (Inches): 2.00 Weight (Pounds): 232 Objective exam stable MESHA TRUONG September 29, 2016 08:51
[2016-09-29] MEDS: Lactulose 20gm/30ml UDC ORAL SCH ×3 (09:00→17:17)
[2016-09-29] MEDS: Rifaximin 550mg tab ORAL SCH ×2 (09:41→17:17)
[2016-09-29] MEDS: Docusate 100mg cap ORAL SCH ×2 (09:41→17:16)
[2016-09-29] MEDS: Midodrine 10mg tab ORAL SCH ×3 (09:41→17:16)
[2016-09-29] MEDS: Ascorbic Acid 500mg tab ORAL SCH (09:42)
[2016-09-29] MEDS: Aspirin EC 81mg tab ORAL SCH (09:42)
[2016-09-29] MEDS: Lotrisone Cream 15gm TOPIC SCH ×2 (09:43→20:26)
[2016-09-29] MEDS: Pantoprazole Inj IVP SCH (10:58)
[2016-09-29] MEDS: Norco 5mg/325mg tab ORAL PRN ×2 (11:03→17:22)
--- NOTE | 2016-09-29 11:40 | General Progress Note ---
Assessment/Plan Status: stable Assessment/Plan status; Acute renal failure- Severe Anemia HyperKalemia Dehydration Proteinuria UTI High INR others: 1. s/p Status post mechanical fall. 2. Left periprosthetic femoral fracture. 3. Alcoholic liver cirrhosis. 4. s/p Elevated transaminase. 5. 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 6. Elevated tumor markers (CEA, AFP/alpha-fetoprotein). 7. Acute hepatic encephalopathy. 8. Hypertension. 9. Dementia. 10. Psychosis. 11. History of hemiarthroplasty, left hip, recent. 12. Hepatitis C. 13. History of alcohol abuse. 14. Anemia of chronic disease. 15. Thrombocytopenia, secondary to alcohol abuse. Plan; No labs today- Transfuse as needed Midodrine- hold mind altering meds- antibiotics - avoid nephrotoxics urine studies monitor renal parameters Tap Ascitis PRN per orders Subjective ROS Limited/Unobtainable: No Constitutional: Reports: malaise Allergies: Coded Allergies: No Known Allergies (Unverified , 09/06/16) Objective Last 24 Hour Vital Signs Date Time Temp Pulse Resp B/P Pulse Ox O2 Delivery O2 Flow Rate FiO2 09/29/16 08:00 96.7 84 18 139/85 95 Room Air 09/29/16 04:00 97.0 79 18 120/66 98 Room Air 09/29/16 00:00 97.5 76 18 118/72 98 Room Air 09/28/16 21:15 98.1 82 18 146/93 98 Room Air 09/28/16 20:30 98.8 79 20 101/57 100 Room Air 09/28/16 18:25 97.1 09/28/16 16:00 77 09/28/16 15:37 97.1 89 20 133/92 95 Room Air 09/28/16 12:00 80 Intake and Output 09/28/16 09/29/16 19:00 07:00 Intake Total 460 ml Balance 460 ml Intake Oral 460 ml # Bowel Movements 5 2 Height (Feet): 6 Height (Inches): 2.00 Weight (Pounds): 232 General Appearance: no apparent distress Objective no change in PE PRINCESS PALACIO September 29, 2016 11:40
--- NOTE | 2016-09-29 12:08 | General Progress Note ---
Assessment/Plan Assessment/Plan (1) Dementia (2) S/p Mechanical fall (3) Left hip Fracture (4) Left hip pain (5) S/p Left hip hemiarthroplasty Patient will be continued on [place] as needed. Parameters continued. D/w Dr. Donald and he concurred. Subjective Date patient seen: September 29, 2016 Time patient seen: 11:00 - am Allergies: Coded Allergies: No Known Allergies (Unverified , 09/06/16) Subjective REVIEW OF SYSTEMS: Complaining of left hip pain SUBJECTIVE: The pt has been transferred to med/surg floor He is comfortable and in no distress of signs of pain. Receiving the [place] as needed. Objective Last 24 Hour Vital Signs Date Time Temp Pulse Resp B/P Pulse Ox O2 Delivery O2 Flow Rate FiO2 09/29/16 08:00 96.7 84 18 139/85 95 Room Air 09/29/16 04:00 97.0 79 18 120/66 98 Room Air 09/29/16 00:00 97.5 76 18 118/72 98 Room Air 09/28/16 21:15 98.1 82 18 146/93 98 Room Air 09/28/16 20:30 98.8 79 20 101/57 100 Room Air 09/28/16 18:25 97.1 09/28/16 16:00 77 09/28/16 15:37 97.1 89 20 133/92 95 Room Air Intake and Output 09/28/16 09/29/16 19:00 07:00 Intake Total 460 ml Balance 460 ml Intake Oral 460 ml # Bowel Movements 5 2 Height (Feet): 6 Height (Inches): 2.00 Weight (Pounds): 232 Objective GENERAL: Alert and awake. HEENT: PERRLA. NECK: Range of motion is full in all directions. No tenderness to paracervical muscles. LUNGS: Clear. HEART: Regular. ABDOMEN: Distended. BACK: Range of motion is decreased in flexion and extension. EXTREMITIES: Lower extremity motion is decreased over the left hip. Stevenson are seen over the surgical wound. Drainage noted. Tenderness to palpation. SLOAN PACKER September 29, 2016 12:08
--- NOTE | 2016-09-29 13:05 | General Progress Note ---
Assessment/Plan Status: stable Assessment/Plan 1. Shock: ddx, cardiogenic secondary to arrythmai, 2. Bradycardia-junctional rhythm, 3.Bleeding diatheses from the postoperative left-sided hip area. 4. Left-sided hip fracture, status post complicated course of infection and revision surgery in [facility] in August 2016. 5. Acute anemia. 6. Anxiety and depression. 5. Dementia. 6. Alcoholic cirrhosis. 7. Hypercoagulable state. 8. Iron deficiency anemia. 9. Pain management. 11. A/C Renal failure 12. Ascites: S/p paracenthesis twice 10. Gastrointestinal and deep vein thrombosis prophylaxis. Plan: Ok to resume Alpha bladimir and proceed with Voiding trial Ok to continue ASA, per [facility] Notes are reviewed Poor Prognosis, but stable at this time Subjective ROS Limited/Unobtainable: Yes Allergies: Coded Allergies: No Known Allergies (Unverified , 09/06/16) Objective Last 24 Hour Vital Signs Date Time Temp Pulse Resp B/P Pulse Ox O2 Delivery O2 Flow Rate FiO2 09/29/16 12:13 97.5 75 18 122/68 100 Room Air 09/29/16 12:02 96.7 09/29/16 08:00 96.7 84 18 139/85 95 Room Air 09/29/16 04:00 97.0 79 18 120/66 98 Room Air 09/29/16 00:00 97.5 76 18 118/72 98 Room Air 09/28/16 21:15 98.1 82 18 146/93 98 Room Air 09/28/16 20:30 98.8 79 20 101/57 100 Room Air 09/28/16 18:25 97.1 09/28/16 16:00 77 09/28/16 15:37 97.1 89 20 133/92 95 Room Air Intake and Output 09/28/16 09/29/16 19:00 07:00 Intake Total 460 ml Balance 460 ml Intake Oral 460 ml # Bowel Movements 5 2 Height (Feet): 6 Height (Inches): 2.00 Weight (Pounds): 232 General Appearance: no apparent distress EENT: PERRL/EOMI Neck: supple Cardiovascular: normal rate Respiratory/Chest: lungs clear Abdomen: other - Diffuse ascitis, Extremities: non-tender Edema: 2+ Leg (R), 2+ Pedal (L) 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
--- NOTE | 2016-09-29 13:35 | Infectious Diseases Prog Note ---
Assessment/Plan Assessment/Plan A: Hepatitis C Cirrhosis Anemia Thrombocytopenia P: observe off antibiotic Subjective ROS Limited/Unobtainable: No Constitutional: Reports: no symptoms Respiratory: Reports: no symptoms Gastrointestinal/Abdominal: Reports: other - on and off abdominal pain Genitourinary: Reports: no symptoms Musculoskeletal: Reports: pain Allergies: Coded Allergies: No Known Allergies (Unverified , 09/06/16) Objective Vital Signs Last 24 Hour Vital Signs Date Time Temp Pulse Resp B/P Pulse Ox O2 Delivery O2 Flow Rate FiO2 09/29/16 12:13 97.5 75 18 122/68 100 Room Air 09/29/16 12:02 96.7 09/29/16 08:00 96.7 84 18 139/85 95 Room Air 09/29/16 04:00 97.0 79 18 120/66 98 Room Air 09/29/16 00:00 97.5 76 18 118/72 98 Room Air 09/28/16 21:15 98.1 82 18 146/93 98 Room Air 09/28/16 20:30 98.8 79 20 101/57 100 Room Air 09/28/16 18:25 97.1 09/28/16 16:00 77 09/28/16 15:37 97.1 89 20 133/92 95 Room Air Height (Feet): 6 Height (Inches): 2.00 Weight (Pounds): 232 General Appearance: no acute distress HEENT: mucous membranes moist Respiratory/Chest: lungs clear Cardiovascular: normal rate Abdomen: distended, other - ascites Extremities: other - bilateral SCD of legs Neurologic/Psychiatric: alert, responsive Microbiology Date/Time Source Procedure Growth Status 09/26/16 14:15 Abdominal Fluid Gram Stain - Final Resulted 09/26/16 14:15 Abdominal Fluid Body Fluid Culture - Preliminary NO GROWTH AFTER 72 HOURS Resulted Current Medications Medications (Trade) Dose Ordered Sig/Carolynn Route PRN Reason Start Time Stop Time Status Last Admin Dose Admin Acetaminophen (Tylenol) 650 mg Q4H PRN ORAL Mild Pain/Temp > 100.5 09/28/16 23:00 10/28/16 22:59 Acetaminophen/ Hydrocodone Bitart ([place] 5/325) 1 tab Q4H PRN ORAL Moderate Pain (Pain Scale 4-6) 09/28/16 23:00 10/05/16 22:59 09/29/16 11:03 Ascorbic Acid (Vitamin C) 500 mg DAILY ORAL 09/29/16 09:00 10/29/16 08:59 09/29/16 09:42 Aspirin (Ecotrin) 81 mg DAILY ORAL 09/29/16 09:00 10/29/16 08:59 09/29/16 09:42 Betamethasone/ Clotrimazole (Lotrisone) 1 applic Q12HR TOPIC 09/29/16 09:00 10/29/16 08:59 09/29/16 09:43 Bisacodyl (Dulcolax) 10 mg DAILYPRN PRN RECTAL Constipation 09/29/16 19:00 10/29/16 18:59 Docusate Sodium (Colace) 100 mg TWICE A DAY ORAL 09/29/16 09:00 10/29/16 08:59 09/29/16 09:41 Ergocalciferol (Drisdol) 50,000 intlu MoTh ORAL 09/30/16 09:00 10/30/16 08:59 Finasteride (Proscar) 5 mg DAILY ORAL 09/29/16 14:00 10/29/16 13:59 Lactulose (Cephulac) 30 gm BID ORAL 09/29/16 09:00 10/29/16 08:59 Midodrine (Pro-Amatine) 10 mg THREE TIMES A DAY ORAL 09/29/16 09:00 10/29/16 08:59 09/29/16 09:41 Pantoprazole (Protonix) 40 mg DAILY IVP 09/29/16 09:00 10/29/16 08:59 09/29/16 10:58 Rifaximin (Xifaxan) 550 mg TWICE A DAY ORAL 09/29/16 09:00 10/06/16 08:59 09/29/16 09:41 Sodium Chloride (NS) 550 ml @ 0 mls/hr Q0M PRN IV PRN SBP < 95 09/28/16 21:30 10/28/16 21:29 Tamsulosin HCl (Flomax) 0.4 mg BEDTIME ORAL 09/29/16 21:00 10/29/16 20:59 YOLANDE MANCIA September 29, 2016 13:35
--- NOTE | 2016-09-29 16:39 | General Progress Note ---
Assessment/Plan Assessment/Plan Assessment/Plan Problems: (1) Acute hepatic encephalopathy ICD Codes: K72.00 - Acute and subacute hepatic failure without coma SNOMED: 23335079 (2) LFT elevation/cirrhosis ICD Codes: R94.5 - Abnormal results of liver function studies SNOMED: 077012281 (3) History of alcoholism ICD Codes: F10.21 - Alcohol dependence, in remission SNOMED: 839854517 (4) Elevated CEA ICD Codes: R97.0 - Elevated carcinoembryonic antigen [CEA] SNOMED: 75005630, 682059127 (5) Anemia ICD Codes: D64.9 - Anemia, unspecified SNOMED: 234297488 Qualifiers: Qualified Codes: D64.9 - Anemia, unspecified (6) Dehydration ICD Codes: E86.0 - Dehydration SNOMED: 79316752 Status: stable, progressing Assessment/Plan S/P EGD - FINDINGS: 1. Severe portal hypertensive gastropathy. Status post biopsy. 2. Distal esophageal varices grade I/II without any stigmata. Hep C positive s/p paracentesis >> 5L yield >> r/o SBP ammonia WNL >> cont lactulose + Xifaxan monitor H&H, will consider colonoscopy if patient has s/sx of bleeding ppi dc propranolol fu labs Subjective Allergies: Coded Allergies: No Known Allergies (Unverified , 09/06/16) Subjective above noted feels OK no complaints Objective Last 24 Hour Vital Signs Date Time Temp Pulse Resp B/P Pulse Ox O2 Delivery O2 Flow Rate FiO2 09/29/16 16:02 96.8 79 18 143/90 96 Nasal Cannula 2.0 09/29/16 12:13 97.5 75 18 122/68 100 Room Air 09/29/16 12:02 96.7 09/29/16 08:00 96.7 84 18 139/85 95 Room Air 09/29/16 04:00 97.0 79 18 120/66 98 Room Air 09/29/16 00:00 97.5 76 18 118/72 98 Room Air 09/28/16 21:15 98.1 82 18 146/93 98 Room Air 09/28/16 20:30 98.8 79 20 101/57 100 Room Air 09/28/16 18:25 97.1 Intake and Output 09/28/16 09/29/16 19:00 07:00 Intake Total 460 ml Balance 460 ml Intake Oral 460 ml # Bowel Movements 5 2 Height (Feet): 6 Height (Inches): 2.00 Weight (Pounds): 232 Objective WDWN AA man NCAT supple CTA RRR soft ND NT no edema non focal CELIO SMALL September 29, 2016 16:39
[2016-09-29] MEDS: Tamsulosin 0.4mg cap ORAL SCH (20:26)
--- NOTE | 2016-09-29 22:58 | Pulmonology Progress Note ---
Subjective Allergies: Coded Allergies: No Known Allergies (Unverified , 09/06/16) Objective Last 24 Hour Vital Signs Date Time Temp Pulse Resp B/P Pulse Ox O2 Delivery O2 Flow Rate FiO2 09/29/16 20:00 97.6 81 18 165/100 100 Nasal Cannula 2.0 09/29/16 18:21 96.8 09/29/16 16:02 96.8 79 18 143/90 96 Nasal Cannula 2.0 09/29/16 12:13 97.5 75 18 122/68 100 Room Air 09/29/16 08:00 96.7 84 18 139/85 95 Room Air 09/29/16 04:00 97.0 79 18 120/66 98 Room Air 09/29/16 00:00 97.5 76 18 118/72 98 Room Air Intake and Output 09/28/16 09/29/16 19:00 07:00 Intake Total 460 ml Balance 460 ml Intake Oral 460 ml # Bowel Movements 5 2 Current Medications Medications (Trade) Dose Ordered Sig/Carolynn Route PRN Reason Start Time Stop Time Status Last Admin Dose Admin Acetaminophen (Tylenol) 650 mg Q4H PRN ORAL Mild Pain/Temp > 100.5 09/28/16 23:00 10/28/16 22:59 Acetaminophen/ Hydrocodone Bitart ([place] 5/325) 1 tab Q4H PRN ORAL Moderate Pain (Pain Scale 4-6) 09/28/16 23:00 10/05/16 22:59 09/29/16 17:22 Ascorbic Acid (Vitamin C) 500 mg DAILY ORAL 09/29/16 09:00 10/29/16 08:59 09/29/16 09:42 Aspirin (Ecotrin) 81 mg DAILY ORAL 09/29/16 09:00 10/29/16 08:59 09/29/16 09:42 Betamethasone/ Clotrimazole (Lotrisone) 1 applic Q12HR TOPIC 09/29/16 09:00 10/29/16 08:59 09/29/16 20:26 Bisacodyl (Dulcolax) 10 mg DAILYPRN PRN RECTAL Constipation 09/29/16 19:00 10/29/16 18:59 Docusate Sodium (Colace) 100 mg TWICE A DAY ORAL 09/29/16 09:00 10/29/16 08:59 09/29/16 17:16 Ergocalciferol (Drisdol) 50,000 intlu MoTh ORAL 09/30/16 09:00 10/30/16 08:59 Finasteride (Proscar) 5 mg DAILY ORAL 09/29/16 14:00 10/29/16 13:59 09/29/16 14:03 Lactulose (Cephulac) 30 gm BID ORAL 09/29/16 09:00 10/29/16 08:59 Midodrine (Pro-Amatine) 10 mg THREE TIMES A DAY ORAL 09/29/16 09:00 10/29/16 08:59 09/29/16 17:16 Pantoprazole (Protonix) 40 mg DAILY IVP 09/29/16 09:00 10/29/16 08:59 09/29/16 10:58 Rifaximin (Xifaxan) 550 mg TWICE A DAY ORAL 09/29/16 09:00 10/06/16 08:59 09/29/16 17:17 Sodium Chloride (NS) 550 ml @ 0 mls/hr Q0M PRN IV PRN SBP < 95 09/28/16 21:30 10/28/16 21:29 Tamsulosin HCl (Flomax) 0.4 mg BEDTIME ORAL 09/29/16 21:00 10/29/16 20:59 09/29/16 20:26 CIRA KOCH September 29, 2016 22:58
--- NOTE | 2016-09-29 23:58 | Cardiology Progress Note ---
Assessment/Plan Assessment/Plan 1. Junctional rhythm, resolved with dopamine gtt, continue to keep HR >70, LVEF at 65%. 2. Status post open reduction and internal fixation of left hip at [facility] around two weeks ago. 3. History of hypertension. 4. History of liver cirrhosis. Subjective Subjective Sinus rhythm at 80. Objective Last 24 Hour Vital Signs Date Time Temp Pulse Resp B/P Pulse Ox O2 Delivery O2 Flow Rate FiO2 09/29/16 20:00 97.6 81 18 165/100 100 Nasal Cannula 2.0 09/29/16 18:21 96.8 09/29/16 16:02 96.8 79 18 143/90 96 Nasal Cannula 2.0 09/29/16 12:13 97.5 75 18 122/68 100 Room Air 09/29/16 08:00 96.7 84 18 139/85 95 Room Air 09/29/16 04:00 97.0 79 18 120/66 98 Room Air 09/29/16 00:00 97.5 76 18 118/72 98 Room Air Intake and Output 09/28/16 09/29/16 19:00 07:00 Intake Total 460 ml Balance 460 ml Intake Oral 460 ml # Bowel Movements 5 2 2D Echo: LVEF 65%, Mild LVH, Grade I LVDD, Mod MR, RVSP 29 mmHg Objective GENERAL: The patient is a very unfortunate 66-year-old gentleman, alert and awake, in no apparent respiratory distress. HEENT: Atraumatic and normocephalic. Anicteric. Pupils are equal, round, and reactive to light and accommodation. Extraocular muscles intact. NECK: JVP is 5 cm, but no carotid bruit. Carotid upstrokes 2+ bilaterally. CARDIOVASCULAR: Normal S1 and S2. Regular rate and rhythm. A 2/6 mid systolic murmur left sternal border. PMI is at fourth intercostal space in the midclavicular line. LUNGS: Diminished breath sounds at both bases. ABDOMEN: Distended with ascites. Positive shifting dullness. EXTREMITIES: There is 1+ to 3+ edema bilaterally. ASHLEY URIBE September 29, 2016 23:58
[2016-09-30] MEDS: Norco 5mg/325mg tab ORAL PRN ×2 (00:27→08:40)
--- NOTE | 2016-09-30 00:27 | General Progress Note ---
Assessment/Plan Assessment/Plan Assessment/Plan Assessment/Plan IMPRESSION: 1. Thrombocytopenia secondary to alcoholic liver cirrhosis. ok to continue asa, would hold off on coumadin and/or heparin sq. Also patient with DIC as haptoglobin is <29, monitor closely, given sepsis. Has a hx of hepatitis C and 5L removed via para on admission 2. Alcoholic liver cirrhosis. 3. Anemia of bleeding diathesis from hip 4. 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 5. Acute left hip periprosthetic fracture s/p repair 6. History of alcohol abuse. 7. Hepatitis C. 8. Psychosis. 9. Failure to thrive. RECOMMENDATIONS: -. DIC test is ++ thus will monitor closely for fibrinogen and treat symptomatically -. Prior admission and heme workup has been reviewed -. Ok to continue asa, would hold off on coumadin and/or heparin sq -. Watch counts, transfuse to hgb >8 (especially in light of bleeding diathesis and cirrhosis) -. Watch coagulopathy. -. Gi service followup -. Hep C rx as outpatient -. Vitamin K chani Snyder M.D. Subjective Constitutional: Reports: no symptoms HEENT: Reports: no symptoms Cardiovascular: Reports: no symptoms Respiratory: Reports: no symptoms Gastrointestinal/Abdominal: Reports: no symptoms Genitourinary: Reports: no symptoms Neurologic/Psychiatric: Reports: no symptoms Endocrine: Reports: no symptoms Hematologic/Lymphatic: Reports: no symptoms Allergies: Coded Allergies: No Known Allergies (Unverified , 09/06/16) Objective Last 24 Hour Vital Signs Date Time Temp Pulse Resp B/P Pulse Ox O2 Delivery O2 Flow Rate FiO2 09/29/16 23:57 96.8 85 18 159/97 96 Nasal Cannula 2.0 09/29/16 20:00 97.6 81 18 165/100 100 Nasal Cannula 2.0 09/29/16 18:21 96.8 09/29/16 16:02 96.8 79 18 143/90 96 Nasal Cannula 2.0 09/29/16 12:13 97.5 75 18 122/68 100 Room Air 09/29/16 08:00 96.7 84 18 139/85 95 Room Air 09/29/16 04:00 97.0 79 18 120/66 98 Room Air Intake and Output 09/29/16 09/30/16 19:00 07:00 Intake Total 600 ml Output Total 400 ml Balance 200 ml Intake Oral 600 ml Output Urine Total 400 ml # Voids 1 # Bowel Movements 1 Height (Feet): 6 Height (Inches): 2.00 Weight (Pounds): 232 General Appearance: no apparent distress EENT: TMs normal Neck: supple Cardiovascular: normal rate Respiratory/Chest: lungs clear Abdomen: soft Pelvis: speculum exam normal Extremities: non-tender Edema: no edema noted Arm (L), no edema noted Arm (R), no edema noted Leg (L), no edema noted Leg (R), no edema noted Pedal (L), no edema noted Pedal (R), no edema noted Generalized ANATOLIY SNYDER September 30, 2016 00:27
[2016-09-30 04:00] VITALS: BP 133/88
[2016-09-30 08:03] LABS: MEAN CORPUSCULAR HEMOGLOBIN 33.7 PG (27.0-31.0); MEAN CORPUSCULAR HGB CONC 31.8 G/DL (32.0-36.0); MEAN CORPUSCULAR VOLUME 106 FL (80-99); MEAN PLATELET VOLUME 5.7 FL (6.5-10.1); PLATELET COUNT 62 K/UL (150-450); RED BLOOD COUNT 2.58 M/UL (4.70-6.10); RED CELL DISTRIBUTION WIDTH 21.3 % (11.6-14.8); WHITE BLOOD COUNT 4.9 K/UL (4.8-10.8)
--- NOTE | 2016-09-30 08:10 | General Progress Note ---
Assessment/Plan Assessment/Plan (1) Dementia (2) S/p Mechanical fall (3) Left hip Fracture (4) Left hip pain (5) S/p Left hip hemiarthroplasty Patient will be continued on [place] as needed. Parameters continued. D/w Dr. Donald and he concurred. Subjective Date patient seen: September 30, 2016 Time patient seen: 07:00 - am Allergies: Coded Allergies: No Known Allergies (Unverified , 09/06/16) Subjective REVIEW OF SYSTEMS: Complaining of left hip pain SUBJECTIVE: He is in bed no new complaints or signs of pain. Pain is worse with movement and has received the [place] which reduces his pain. Objective Last 24 Hour Vital Signs Date Time Temp Pulse Resp B/P Pulse Ox O2 Delivery O2 Flow Rate FiO2 09/30/16 04:00 97.2 91 18 133/88 100 Nasal Cannula 2.0 09/30/16 01:26 96.8 09/29/16 23:57 96.8 85 18 159/97 96 Nasal Cannula 2.0 09/29/16 20:00 97.6 81 18 165/100 100 Nasal Cannula 2.0 09/29/16 16:02 96.8 79 18 143/90 96 Nasal Cannula 2.0 09/29/16 12:13 97.5 75 18 122/68 100 Room Air Intake and Output 09/29/16 09/30/16 19:00 07:00 Intake Total 600 ml Output Total 400 ml Balance 200 ml Intake Oral 600 ml Output Urine Total 400 ml # Voids 1 # Bowel Movements 1 Laboratory Tests 09/30/16 05:00: White Blood Count 4.9, Red Blood Count 2.58L, Hemoglobin 8.7L, Hematocrit 27.4L , Mean Corpuscular Volume 106H, Mean Corpuscular Hemoglobin 33.7H, Mean Corpuscular Hemoglobin Concent 31.8L, Red Cell Distribution Width 21.3H, Platelet Count 62L, Mean Platelet Volume 5.7L, Neutrophils (%) (Auto) , Lymphocytes (%) (Auto) , Monocytes (%) (Auto) , Eosinophils (%) (Auto) , Basophils (%) (Auto) , Neutrophils % (Manual) [Pending], Lymphocytes % (Manual) [Pending], Platelet Estimate [Pending], Platelet Morphology [Pending], Sodium Level [Pending], Potassium Level [Pending], Chloride Level [Pending], Carbon Dioxide Level [Pending], Blood Urea Nitrogen [Pending], Creatinine [Pending], Estimat Glomerular Filtration Rate [Pending], Glucose Level [Pending], Uric Acid [Pending], Calcium Level [Pending], Phosphorus Level [Pending], Magnesium Level [Pending], Total Bilirubin [Pending], Aspartate Amino Transf (AST/SGOT) [ Pending], Alanine Aminotransferase (ALT/SGPT) [Pending], Alkaline Phosphatase [ Pending], C-Reactive Protein, Quantitative [Pending], Pro-B-Type Natriuretic Peptide [Pending], Total Protein [Pending], Albumin [Pending], Globulin [Pending ] Height (Feet): 6 Height (Inches): 2.00 Weight (Pounds): 232 Objective GENERAL: Alert and awake. HEENT: PERRLA. NECK: Range of motion is full in all directions. No tenderness to paracervical muscles. LUNGS: Clear. HEART: Regular. ABDOMEN: Distended. BACK: Range of motion is decreased in flexion and extension. EXTREMITIES: Lower extremity motion is decreased over the left hip. [place] are seen over the surgical wound. Drainage noted. Tenderness to palpation. SLONA PACKER September 30, 2016 08:10
[2016-09-30 08:14] VITALS: BP 138/99
[2016-09-30] MEDS: Pantoprazole Inj IVP SCH (08:16)
[2016-09-30] MEDS: Vitamin D 50,000 units cap ORAL SCH (08:17)
[2016-09-30] MEDS: Ascorbic Acid 500mg tab ORAL SCH (08:17)
[2016-09-30] MEDS: Midodrine 10mg tab ORAL SCH (08:17)
[2016-09-30] MEDS: Docusate 100mg cap ORAL SCH ×2 (08:17→17:05)
[2016-09-30] MEDS: Aspirin EC 81mg tab ORAL SCH (08:17)
[2016-09-30] MEDS: Lactulose 20gm/30ml UDC ORAL SCH ×2 (08:17→17:05)
[2016-09-30] MEDS: Rifaximin 550mg tab ORAL SCH ×2 (08:18→17:05)
[2016-09-30 08:19] LABS: ALBUMIN/GLOBULIN RATIO 0.3 (1.0-2.7); CREATININE 1.6 mg/dL (0.7-1.2); CRP QUANT 1.2 mg/dL (< 0.5); GLOMERULAR FILTRATION RATE 52.8 mL/min (>60); MAGNESIUM 1.9 mg/dL (1.7-2.5); PHOSPHORUS 3.4 mg/dL (2.5-4.8); POTASSIUM 4.7 mEQ/L (3.4-4.9); TOTAL PROTEIN 6.4 g/dL (6.6-8.7); URIC ACID 9.5 mg/dL (3.0-7.5)
[2016-09-30 08:44] LABS: BILIRUBIN,DIRECT 1.2 mg/dL (0.1-0.3)
[2016-09-30] MEDS: Lotrisone Cream 15gm TOPIC SCH (09:00)
[2016-09-30] MEDS ORDERED: Vitamin D 50,000 units cap ORAL SCH (09:00)
--- NOTE | 2016-09-30 09:38 | Infectious Diseases Prog Note ---
Assessment/Plan Assessment/Plan A: No evid of sepsis at this time SP Hypotension SP Paracentesis no evidence of SPB No evidence of surgical site infection at this time Hepatitis C antibody + HIV : neg Depression Hypotension due to bradycardia Dementia Alcohol abuse Anemia History of left hip surgery four months ago CT of the pelvis, left hip : hemiarthroplasty, fracture of intertrochanteric region of the femur, soft tissue swelling, hematoma, and ascites PLAN: Monitor the patient off of antibiotics Monitor CBC Monitor BMP. Monitor cultures of the blood and urine Subjective Constitutional: Denies: anorexia, chills, drenching sweats, fatigue, fever, no symptoms, other Allergies: Coded Allergies: No Known Allergies (Unverified , 09/06/16) Subjective Objective Vital Signs Last 24 Hour Vital Signs Date Time Temp Pulse Resp B/P Pulse Ox O2 Delivery O2 Flow Rate FiO2 09/30/16 08:14 97.3 95 18 138/99 100 Room Air 09/30/16 04:00 97.2 91 18 133/88 100 Nasal Cannula 2.0 09/30/16 01:26 96.8 09/29/16 23:57 96.8 85 18 159/97 96 Nasal Cannula 2.0 09/29/16 20:00 97.6 81 18 165/100 100 Nasal Cannula 2.0 09/29/16 16:02 96.8 79 18 143/90 96 Nasal Cannula 2.0 09/29/16 12:13 97.5 75 18 122/68 100 Room Air Height (Feet): 6 Height (Inches): 2.00 Weight (Pounds): 232 HEENT: anicteric Respiratory/Chest: normal breath sounds Cardiovascular: regular rhythm Abdomen: no organomegaly Laboratory Tests Test 09/30/16 05:00 White Blood Count 4.9 K/UL (4.8-10.8) Red Blood Count 2.58 M/UL (4.70-6.10) L Hemoglobin 8.7 G/DL (14.2-18.0) L Hematocrit 27.4 % (42.0-52.0) L Mean Corpuscular Volume 106 FL (80-99) H Mean Corpuscular Hemoglobin 33.7 PG (27.0-31.0) H Mean Corpuscular Hemoglobin Concent 31.8 G/DL (32.0-36.0) L Red Cell Distribution Width 21.3 % (11.6-14.8) H Platelet Count 62 K/UL (150-450) L Mean Platelet Volume 5.7 FL (6.5-10.1) L Neutrophils (%) (Auto) % (45.0-75.0) Lymphocytes (%) (Auto) % (20.0-45.0) Monocytes (%) (Auto) % (1.0-10.0) Eosinophils (%) (Auto) % (0.0-3.0) Basophils (%) (Auto) % (0.0-2.0) Neutrophils % (Manual) Pending Lymphocytes % (Manual) Pending Platelet Estimate Pending Platelet Morphology Pending Sodium Level 134 mEQ/L (135-145) L Potassium Level 4.7 mEQ/L (3.4-4.9) Chloride Level 100 mEQ/L (98-107) Carbon Dioxide Level 21 mEQ/L (20-30) Anion Gap 13 (5-15) Blood Urea Nitrogen 41 mg/dL (7-23) H Creatinine 1.6 mg/dL (0.7-1.2) H Estimat Glomerular Filtration Rate 52.8 mL/min (>60) Glucose Level 116 mg/dL (74-106) H Uric Acid 9.5 mg/dL (3.0-7.5) H Calcium Level 8.0 mg/dL (8.6-10.2) L Phosphorus Level 3.4 mg/dL (2.5-4.8) Magnesium Level 1.9 mg/dL (1.7-2.5) Total Bilirubin 2.4 mg/dL (0.0-1.2) H Direct Bilirubin 1.2 mg/dL (0.1-0.3) H Aspartate Amino Transf (AST/SGOT) 104 U/L (5-40) H Alanine Aminotransferase (ALT/SGPT) 27 U/L (3-41) Alkaline Phosphatase 156 U/L (40-129) H C-Reactive Protein, Quantitative 1.2 mg/dL (< 0.5) H Pro-B-Type Natriuretic Peptide 310 pg/mL (0-125) H Total Protein 6.4 g/dL (6.6-8.7) L Albumin 1.6 g/dL (3.5-5.2) L Globulin 4.8 g/dL Albumin/Globulin Ratio 0.3 (1.0-2.7) L Current Medications Medications (Trade) Dose Ordered Sig/Carolynn Route PRN Reason Start Time Stop Time Status Last Admin Dose Admin Acetaminophen (Tylenol) 650 mg Q4H PRN ORAL Mild Pain/Temp > 100.5 09/28/16 23:00 10/28/16 22:59 Acetaminophen/ Hydrocodone Bitart ([place] 5/325) 1 tab Q4H PRN ORAL Moderate Pain (Pain Scale 4-6) 09/28/16 23:00 10/05/16 22:59 09/30/16 08:40 Ascorbic Acid (Vitamin C) 500 mg DAILY ORAL 09/29/16 09:00 10/29/16 08:59 09/30/16 08:17 Aspirin (Ecotrin) 81 mg DAILY ORAL 09/29/16 09:00 10/29/16 08:59 09/30/16 08:17 Betamethasone/ Clotrimazole (Lotrisone) 1 applic Q12HR TOPIC 09/29/16 09:00 10/29/16 08:59 09/29/16 20:26 Bisacodyl (Dulcolax) 10 mg DAILYPRN PRN RECTAL Constipation 09/29/16 19:00 10/29/16 18:59 Docusate Sodium (Colace) 100 mg TWICE A DAY ORAL 09/29/16 09:00 10/29/16 08:59 09/30/16 08:17 Ergocalciferol (Drisdol) 50,000 intlu MoTh ORAL 09/30/16 09:00 10/30/16 08:59 09/30/16 08:17 Finasteride (Proscar) 5 mg DAILY ORAL 09/29/16 14:00 10/29/16 13:59 09/30/16 08:17 Lactulose (Cephulac) 30 gm BID ORAL 09/29/16 09:00 10/29/16 08:59 09/30/16 08:17 Midodrine (Pro-Amatine) 10 mg THREE TIMES A DAY ORAL 09/29/16 09:00 10/29/16 08:59 09/30/16 08:17 Pantoprazole (Protonix) 40 mg DAILY IVP 09/29/16 09:00 10/29/16 08:59 09/30/16 08:16 Rifaximin (Xifaxan) 550 mg TWICE A DAY ORAL 09/29/16 09:00 10/06/16 08:59 09/30/16 08:18 Sodium Chloride (NS) 550 ml @ 0 mls/hr Q0M PRN IV PRN SBP < 95 09/28/16 21:30 10/28/16 21:29 Tamsulosin HCl (Flomax) 0.4 mg BEDTIME ORAL 09/29/16 21:00 10/29/16 20:59 09/29/16 20:26 CHAY DOMINGO M.D. September 30, 2016 09:38
--- NOTE | 2016-09-30 09:49 | Urology Progress Note ---
Assessment/Plan Assessment/Plan 1. Urinary retention. 2. Benign prostatic hypertrophy. 3. Possible neurogenic bladder. 4. Hematuria. 5. Pyuria. 6. Proteinuria. 7. Renal insufficiency which is acute on chronic. weeks out flomax and proscar resumed check PVR monitor renal fxn Subjective Allergies: Coded Allergies: No Known Allergies (Unverified , 09/06/16) Subjective all noted, weeks removed, incontinent Objective Last 24 Hour Vital Signs Date Time Temp Pulse Resp B/P Pulse Ox O2 Delivery O2 Flow Rate FiO2 09/30/16 08:14 97.3 95 18 138/99 100 Room Air 09/30/16 04:00 97.2 91 18 133/88 100 Nasal Cannula 2.0 09/30/16 01:26 96.8 09/29/16 23:57 96.8 85 18 159/97 96 Nasal Cannula 2.0 09/29/16 20:00 97.6 81 18 165/100 100 Nasal Cannula 2.0 09/29/16 16:02 96.8 79 18 143/90 96 Nasal Cannula 2.0 09/29/16 12:13 97.5 75 18 122/68 100 Room Air Intake and Output 09/29/16 09/30/16 19:00 07:00 Intake Total 600 ml Output Total 400 ml Balance 200 ml Intake Oral 600 ml Output Urine Total 400 ml # Voids 1 # Bowel Movements 1 Microbiology Date/Time Source Procedure Growth Status 09/25/16 21:05 Blood Blood Culture - Preliminary NO GROWTH AFTER 4 DAYS Resulted 09/24/16 02:35 Nasal Nares MRSA Culture - Final NO METHICILLIN RESISTANT STAPH AUREUS... Complete 09/25/16 21:00 Urine,Clean Catch Urine Culture - Final NO GROWTH AFTER 48 HOURS Complete 09/26/16 14:15 Abdominal Fluid Gram Stain - Final Resulted 09/26/16 14:15 Abdominal Fluid Body Fluid Culture - Preliminary NO GROWTH AFTER 72 HOURS Resulted Current Medications Medications (Trade) Dose Ordered Sig/Carolynn Route PRN Reason Start Time Stop Time Status Last Admin Dose Admin Acetaminophen (Tylenol) 650 mg Q4H PRN ORAL Mild Pain/Temp > 100.5 09/28/16 23:00 10/28/16 22:59 Acetaminophen/ Hydrocodone Bitart ([place] 5/325) 1 tab Q4H PRN ORAL Moderate Pain (Pain Scale 4-6) 09/28/16 23:00 5/13/17 22:59 09/30/16 08:40 Ascorbic Acid (Vitamin C) 500 mg DAILY ORAL 09/29/16 09:00 10/29/16 08:59 09/30/16 08:17 Aspirin (Ecotrin) 81 mg DAILY ORAL 09/29/16 09:00 10/29/16 08:59 09/30/16 08:17 Betamethasone/ Clotrimazole (Lotrisone) 1 applic Q12HR TOPIC 09/29/16 09:00 10/29/16 08:59 09/29/16 20:26 Bisacodyl (Dulcolax) 10 mg DAILYPRN PRN RECTAL Constipation 09/29/16 19:00 10/29/16 18:59 Docusate Sodium (Colace) 100 mg TWICE A DAY ORAL 09/29/16 09:00 10/29/16 08:59 09/30/16 08:17 Ergocalciferol (Drisdol) 50,000 intlu MoTh ORAL 09/30/16 09:00 10/30/16 08:59 09/30/16 08:17 Finasteride (Proscar) 5 mg DAILY ORAL 09/29/16 14:00 10/29/16 13:59 09/30/16 08:17 Lactulose (Cephulac) 30 gm BID ORAL 09/29/16 09:00 10/29/16 08:59 09/30/16 08:17 Midodrine (Pro-Amatine) 10 mg THREE TIMES A DAY ORAL 09/29/16 09:00 10/29/16 08:59 09/30/16 08:17 Pantoprazole (Protonix) 40 mg DAILY IVP 09/29/16 09:00 10/29/16 08:59 09/30/16 08:16 Rifaximin (Xifaxan) 550 mg TWICE A DAY ORAL 09/29/16 09:00 10/06/16 08:59 09/30/16 08:18 Sodium Chloride (NS) 550 ml @ 0 mls/hr Q0M PRN IV PRN SBP < 95 09/28/16 21:30 10/28/16 21:29 Tamsulosin HCl (Flomax) 0.4 mg BEDTIME ORAL 09/29/16 21:00 10/29/16 20:59 09/29/16 20:26 Laboratory Tests 09/30/16 05:00: White Blood Count 4.9, Red Blood Count 2.58L, Hemoglobin 8.7L, Hematocrit 27.4L , Mean Corpuscular Volume 106H, Mean Corpuscular Hemoglobin 33.7H, Mean Corpuscular Hemoglobin Concent 31.8L, Red Cell Distribution Width 21.3H, Platelet Count 62L, Mean Platelet Volume 5.7L, Neutrophils (%) (Auto) , Lymphocytes (%) (Auto) , Monocytes (%) (Auto) , Eosinophils (%) (Auto) , Basophils (%) (Auto) , Neutrophils % (Manual) [Pending], Lymphocytes % (Manual) [Pending], Platelet Estimate [Pending], Platelet Morphology [Pending], Sodium Level 134L, Potassium Level 4.7, Chloride Level 100, Carbon Dioxide Level 21, Anion Gap 13, Blood Urea Nitrogen 41H, Creatinine 1.6H, Estimat Glomerular Filtration Rate 52.8, Glucose Level 116H, Uric Acid 9.5H, Calcium Level 8.0L, Phosphorus Level 3.4, Magnesium Level 1.9, Total Bilirubin 2.4H, Direct Bilirubin 1.2H, Aspartate Amino Transf (AST/SGOT) 104H, Alanine Aminotransferase (ALT/SGPT) 27, Alkaline Phosphatase 156H, C-Reactive Protein, Quantitative 1.2H, Pro-B-Type Natriuretic Peptide 310H, Total Protein 6.4L, Albumin 1.6L, Globulin 4.8, Albumin/Globulin Ratio 0.3L Height (Feet): 6 Height (Inches): 2.00 Weight (Pounds): 232 Objective exam stable MESHA TRUONG September 30, 2016 09:49
--- NOTE | 2016-09-30 10:17 | Cardiology Report ---
APPROVED REPORT EXAM: Two-dimensional and M-mode echocardiogram with Doppler and color Doppler. INDICATION Bradycardia M-Mode DIMENSIONS IVSd1.1 (0.7-1.1cm)Left Atrium (MM)3.9 (1.6-4.0cm) LVDd5.2 (3.5-5.6cm)Aortic Root3.0 (2.0-3.7cm) PWd1.0 (0.7-1.1cm)Aortic Cusp Exc.1.6 (1.5-2.0cm) LVDs2.8 (2.5-4.0cm) PWs1.7 cm Technically difficult study due to poor acoustic windows and combative patient. Study quality precludes accurate assessment of regional wall motion. Normal left ventricular chamber size, systolic function and wall motion. Left ventricular ejection fraction estimated to be 55 %. No evidence of ventricular hypertrophy. Anterior Echo-free space, may be due to pericardial fat or effusion. Moderate right atrial and right ventricular enlargement. Left atrial chamber size is within normal limits. Mild focal aortic valve sclerosis with adequate cusp excursion. Mildly thickened mitral valve leaflets with normal excursion. Mild mitral annulus and aortic root calcification. Normal pulmonic valve structure. Normal tricuspid valve structure. No subcostal views obtained. A color flow and spectral Doppler study was performed and revealed: No aortic regurgitation. Trace mitral regurgitation. Mitral inflow velocities indicates normal left ventricular diastolic function. Mild tricuspid regurgitation. Tricuspid systolic velocities suggests peak right ventricular systolic pressure of 12 mmHg. No pulmonic regurgitation present.
--- NOTE | 2016-09-30 10:33 | General Progress Note ---
Assessment/Plan Status: stable Assessment/Plan 1. Shock: ddx, cardiogenic secondary to arrythmai, 2. Bradycardia-junctional rhythm, 3.Bleeding diatheses from the postoperative left-sided hip area. 4. Left-sided hip fracture, status post complicated course of infection and revision surgery in [facility] in August 2016. 5. Acute anemia. 6. Anxiety and depression. 5. Dementia. 6. Alcoholic cirrhosis. 7. Hypercoagulable state. 8. Iron deficiency anemia. 9. Pain management. 11. A/C Renal failure 12. Ascites: S/p paracenthesis twice 10. Gastrointestinal and deep vein thrombosis prophylaxis. Plan: Ok to resume Alpha bladimir and proceed with Voiding trial Ok to continue ASA, per [facility] Notes are reviewed Poor Prognosis, but stable at this time Ok to continue care as an outpatient Subjective ROS Limited/Unobtainable: Yes HEENT: Reports: no symptoms Respiratory: Reports: no symptoms Allergies: Coded Allergies: No Known Allergies (Unverified , 09/06/16) Objective Last 24 Hour Vital Signs Date Time Temp Pulse Resp B/P Pulse Ox O2 Delivery O2 Flow Rate FiO2 09/30/16 09:39 97.3 09/30/16 08:14 97.3 95 18 138/99 100 Room Air 09/30/16 04:00 97.2 91 18 133/88 100 Nasal Cannula 2.0 09/29/16 23:57 96.8 85 18 159/97 96 Nasal Cannula 2.0 09/29/16 20:00 97.6 81 18 165/100 100 Nasal Cannula 2.0 09/29/16 16:02 96.8 79 18 143/90 96 Nasal Cannula 2.0 09/29/16 12:13 97.5 75 18 122/68 100 Room Air Intake and Output 09/29/16 09/30/16 19:00 07:00 Intake Total 600 ml Output Total 400 ml Balance 200 ml Intake Oral 600 ml Output Urine Total 400 ml # Voids 1 # Bowel Movements 1 Laboratory Tests 09/30/16 05:00: White Blood Count 4.9, Red Blood Count 2.58L, Hemoglobin 8.7L, Hematocrit 27.4L , Mean Corpuscular Volume 106H, Mean Corpuscular Hemoglobin 33.7H, Mean Corpuscular Hemoglobin Concent 31.8L, Red Cell Distribution Width 21.3H, Platelet Count 62L, Mean Platelet Volume 5.7L, Neutrophils (%) (Auto) , Lymphocytes (%) (Auto) , Monocytes (%) (Auto) , Eosinophils (%) (Auto) , Basophils (%) (Auto) , Neutrophils % (Manual) [Pending], Lymphocytes % (Manual) [Pending], Platelet Estimate [Pending], Platelet Morphology [Pending], Sodium Level 134L, Potassium Level 4.7, Chloride Level 100, Carbon Dioxide Level 21, Anion Gap 13, Blood Urea Nitrogen 41H, Creatinine 1.6H, Estimat Glomerular Filtration Rate 52.8, Glucose Level 116H, Uric Acid 9.5H, Calcium Level 8.0L, Phosphorus Level 3.4, Magnesium Level 1.9, Total Bilirubin 2.4H, Direct Bilirubin 1.2H, Aspartate Amino Transf (AST/SGOT) 104H, Alanine Aminotransferase (ALT/SGPT) 27, Alkaline Phosphatase 156H, C-Reactive Protein, Quantitative 1.2H, Pro-B-Type Natriuretic Peptide 310H, Total Protein 6.4L, Albumin 1.6L, Globulin 4.8, Albumin/Globulin Ratio 0.3L Height (Feet): 6 Height (Inches): 2.00 Weight (Pounds): 232 General Appearance: no apparent distress EENT: PERRL/EOMI Neck: supple Cardiovascular: normal rate Respiratory/Chest: lungs clear Abdomen: distended, other - positie for shifting dullness Extremities: other - cachexia 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
[2016-09-30 10:47] LABS: ANISOCYTOSIS 2+; BAND NEUTROPHILS % (MANUAL) 0 % (0-8); BASOPHILS % (MANUAL) 0 % (0-2); EOSINOPHILS % (MANUAL) 4 % (0-3); HYPOCHROMASIA 1+; LYMPHOCYTES % (MANUAL) 6 % (20-45); MACROCYTES 1+; NEUTROPHILS % (MANUAL) 84 % (45-75); PLATELET ESTIMATE DECREASED; PLATELET MORPHOLOGY NORMAL; TOTAL CELLS COUNTED 100
[2016-09-30 11:14] LABS: COMMENT,BODY FLUID PATHOLOGIST COMMENT
--- NOTE | 2016-09-30 11:20 | General Progress Note ---
Assessment/Plan Status: stable Status Narrative Cr 1.6 Assessment/Plan status; Acute renal failure- Severe Anemia HyperKalemia- resolved Dehydration Proteinuria UTI High INR others: 1. s/p Status post mechanical fall. 2. Left periprosthetic femoral fracture. 3. Alcoholic liver cirrhosis. 4. s/p Elevated transaminase. 5. 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 6. Elevated tumor markers (CEA, AFP/alpha-fetoprotein). 7. Acute hepatic encephalopathy. 8. Hypertension. 9. Dementia. 10. Psychosis. 11. History of hemiarthroplasty, left hip, recent. 12. Hepatitis C. 13. History of alcohol abuse. 14. Anemia of chronic disease. 15. Thrombocytopenia, secondary to alcohol abuse. Plan; Transfuse as needed down dose Midodrine- hold mind altering meds- antibiotics - avoid nephrotoxics urine studies monitor renal parameters Tap Ascitis PRN per orders Subjective ROS Limited/Unobtainable: No Constitutional: Reports: malaise, weakness Allergies: Coded Allergies: No Known Allergies (Unverified , 09/06/16) Objective Last 24 Hour Vital Signs Date Time Temp Pulse Resp B/P Pulse Ox O2 Delivery O2 Flow Rate FiO2 09/30/16 09:39 97.3 09/30/16 08:14 97.3 95 18 138/99 100 Room Air 09/30/16 04:00 97.2 91 18 133/88 100 Nasal Cannula 2.0 09/29/16 23:57 96.8 85 18 159/97 96 Nasal Cannula 2.0 09/29/16 20:00 97.6 81 18 165/100 100 Nasal Cannula 2.0 09/29/16 16:02 96.8 79 18 143/90 96 Nasal Cannula 2.0 09/29/16 12:13 97.5 75 18 122/68 100 Room Air Intake and Output 09/29/16 09/30/16 19:00 07:00 Intake Total 600 ml Output Total 400 ml Balance 200 ml Intake Oral 600 ml Output Urine Total 400 ml # Voids 1 # Bowel Movements 1 Laboratory Tests 09/30/16 05:00: White Blood Count 4.9, Red Blood Count 2.58L, Hemoglobin 8.7L, Hematocrit 27.4L , Mean Corpuscular Volume 106H, Mean Corpuscular Hemoglobin 33.7H, Mean Corpuscular Hemoglobin Concent 31.8L, Red Cell Distribution Width 21.3H, Platelet Count 62L, Mean Platelet Volume 5.7L, Neutrophils (%) (Auto) , Lymphocytes (%) (Auto) , Monocytes (%) (Auto) , Eosinophils (%) (Auto) , Basophils (%) (Auto) , Differential Total Cells Counted 100, Neutrophils % ( Manual) 84H, Lymphocytes % (Manual) 6L, Monocytes % (Manual) 6, Eosinophils % ( Manual) 4H, Basophils % (Manual) 0, Band Neutrophils 0, Platelet Estimate DecreasedL, Platelet Morphology Normal, Hypochromasia 1+, Anisocytosis 2+, Macrocytosis 1+, Sodium Level 134L, Potassium Level 4.7, Chloride Level 100, Carbon Dioxide Level 21, Anion Gap 13, Blood Urea Nitrogen 41H, Creatinine 1.6H , Estimat Glomerular Filtration Rate 52.8, Glucose Level 116H, Uric Acid 9.5H, Calcium Level 8.0L, Phosphorus Level 3.4, Magnesium Level 1.9, Total Bilirubin 2.4H, Direct Bilirubin 1.2H, Aspartate Amino Transf (AST/SGOT) 104H, Alanine Aminotransferase (ALT/SGPT) 27, Alkaline Phosphatase 156H, C-Reactive Protein, Quantitative 1.2H, Pro-B-Type Natriuretic Peptide 310H, Total Protein 6.4L, Albumin 1.6L, Globulin 4.8, Albumin/Globulin Ratio 0.3L Height (Feet): 6 Height (Inches): 2.00 Weight (Pounds): 232 General Appearance: no apparent distress Respiratory/Chest: decreased breath sounds Abdomen: distended, other - ascitis Objective no change in PE PRINCESS PALACIO September 30, 2016 11:20
[2016-09-30 11:57] VITALS: BP 129/78
--- NOTE | 2016-09-30 13:26 | GI Progress Note ---
Assessment/Plan Problems: (1) Acute hepatic encephalopathy ICD Codes: K72.00 - Acute and subacute hepatic failure without coma SNOMED: 74255508 (2) LFT elevation ICD Codes: R94.5 - Abnormal results of liver function studies SNOMED: 813645039 (3) History of alcoholism ICD Codes: F10.21 - Alcohol dependence, in remission SNOMED: 282865129 (4) Elevated CEA ICD Codes: R97.0 - Elevated carcinoembryonic antigen [CEA] SNOMED: 12995378, 564667991 (5) Anemia ICD Codes: D64.9 - Anemia, unspecified SNOMED: 530045197 Qualifiers: Qualified Codes: D64.9 - Anemia, unspecified (6) Dehydration ICD Codes: E86.0 - Dehydration SNOMED: 28546377 Status: stable Status Narrative Discussed with Dr. Bojorquez. Assessment/Plan S/P EGD - FINDINGS: 1. Severe portal hypertensive gastropathy. Status post biopsy. >> unremarkable 2. Distal esophageal varices grade I/II without any stigmata. Hep C positive elevated CEA >> 9.6 s/p paracentesis >> 5L yield >> r/o SBP, negative ammonia WNL >> cont lactulose + Xifaxan stable H&H, will consider colonoscopy if patient has s/sx of bleeding ordered OB stool ppi dc propranolol fu labs Subjective Gastrointestinal/Abdominal: Reports: no symptoms Objective Last 24 Hour Vital Signs Date Time Temp Pulse Resp B/P Pulse Ox O2 Delivery O2 Flow Rate FiO2 09/30/16 11:57 97.2 79 18 129/78 98 Nasal Cannula 2.0 09/30/16 09:39 97.3 09/30/16 08:14 97.3 95 18 138/99 100 Room Air 09/30/16 04:00 97.2 91 18 133/88 100 Nasal Cannula 2.0 09/29/16 23:57 96.8 85 18 159/97 96 Nasal Cannula 2.0 09/29/16 20:00 97.6 81 18 165/100 100 Nasal Cannula 2.0 09/29/16 16:02 96.8 79 18 143/90 96 Nasal Cannula 2.0 Intake and Output 09/29/16 09/30/16 19:00 07:00 Intake Total 600 ml Output Total 400 ml Balance 200 ml Intake Oral 600 ml Output Urine Total 400 ml # Voids 1 # Bowel Movements 1 Laboratory Tests Test 09/30/16 05:00 White Blood Count 4.9 K/UL (4.8-10.8) Red Blood Count 2.58 M/UL (4.70-6.10) L Hemoglobin 8.7 G/DL (14.2-18.0) L Hematocrit 27.4 % (42.0-52.0) L Mean Corpuscular Volume 106 FL (80-99) H Mean Corpuscular Hemoglobin 33.7 PG (27.0-31.0) H Mean Corpuscular Hemoglobin Concent 31.8 G/DL (32.0-36.0) L Red Cell Distribution Width 21.3 % (11.6-14.8) H Platelet Count 62 K/UL (150-450) L Mean Platelet Volume 5.7 FL (6.5-10.1) L Neutrophils (%) (Auto) % (45.0-75.0) Lymphocytes (%) (Auto) % (20.0-45.0) Monocytes (%) (Auto) % (1.0-10.0) Eosinophils (%) (Auto) % (0.0-3.0) Basophils (%) (Auto) % (0.0-2.0) Differential Total Cells Counted 100 Neutrophils % (Manual) 84 % (45-75) H Lymphocytes % (Manual) 6 % (20-45) L Monocytes % (Manual) 6 % (1-10) Eosinophils % (Manual) 4 % (0-3) H Basophils % (Manual) 0 % (0-2) Band Neutrophils 0 % (0-8) Platelet Estimate Decreased L Platelet Morphology Normal Hypochromasia 1+ Anisocytosis 2+ Macrocytosis 1+ Sodium Level 134 mEQ/L (135-145) L Potassium Level 4.7 mEQ/L (3.4-4.9) Chloride Level 100 mEQ/L (98-107) Carbon Dioxide Level 21 mEQ/L (20-30) Anion Gap 13 (5-15) Blood Urea Nitrogen 41 mg/dL (7-23) H Creatinine 1.6 mg/dL (0.7-1.2) H Estimat Glomerular Filtration Rate 52.8 mL/min (>60) Glucose Level 116 mg/dL (74-106) H Uric Acid 9.5 mg/dL (3.0-7.5) H Calcium Level 8.0 mg/dL (8.6-10.2) L Phosphorus Level 3.4 mg/dL (2.5-4.8) Magnesium Level 1.9 mg/dL (1.7-2.5) Total Bilirubin 2.4 mg/dL (0.0-1.2) H Direct Bilirubin 1.2 mg/dL (0.1-0.3) H Aspartate Amino Transf (AST/SGOT) 104 U/L (5-40) H Alanine Aminotransferase (ALT/SGPT) 27 U/L (3-41) Alkaline Phosphatase 156 U/L (40-129) H C-Reactive Protein, Quantitative 1.2 mg/dL (< 0.5) H Pro-B-Type Natriuretic Peptide 310 pg/mL (0-125) H Total Protein 6.4 g/dL (6.6-8.7) L Albumin 1.6 g/dL (3.5-5.2) L Globulin 4.8 g/dL Albumin/Globulin Ratio 0.3 (1.0-2.7) L Height (Feet): 6 Height (Inches): 2.00 Weight (Pounds): 232 General Appearance: no apparent distress, alert Cardiovascular: normal rate Respiratory/Chest: normal breath sounds, no respiratory distress Abdominal Exam: normal bowel sounds, non tender, soft Bren Palacios N.PSong September 30, 2016 13:26
--- NOTE | 2016-09-30 14:01 | Cardiology Progress Note ---
Assessment/Plan Assessment/Plan 1. Junctional rhythm, resolved with dopamine gtt, in sinus rhythm, LVEF at 65%. 2. Status post open reduction and internal fixation of left hip at [facility] around two weeks ago. 3. History of hypertension. 4. History of liver cirrhosis. Subjective Subjective Transferred to the non-tele bed. No cardiac events. Objective Last 24 Hour Vital Signs Date Time Temp Pulse Resp B/P Pulse Ox O2 Delivery O2 Flow Rate FiO2 09/30/16 11:57 97.2 79 18 129/78 98 Nasal Cannula 2.0 09/30/16 09:39 97.3 09/30/16 08:14 97.3 95 18 138/99 100 Room Air 09/30/16 04:00 97.2 91 18 133/88 100 Nasal Cannula 2.0 09/29/16 23:57 96.8 85 18 159/97 96 Nasal Cannula 2.0 09/29/16 20:00 97.6 81 18 165/100 100 Nasal Cannula 2.0 09/29/16 16:02 96.8 79 18 143/90 96 Nasal Cannula 2.0 Intake and Output 09/29/16 09/30/16 19:00 07:00 Intake Total 600 ml Output Total 400 ml Balance 200 ml Intake Oral 600 ml Output Urine Total 400 ml # Voids 1 # Bowel Movements 1 2D Echo: LVEF 65%, Mild LVH, Grade I LVDD, Mod MR, RVSP 29 mmHg Laboratory Tests Test 09/30/16 05:00 White Blood Count 4.9 K/UL (4.8-10.8) Red Blood Count 2.58 M/UL (4.70-6.10) L Hemoglobin 8.7 G/DL (14.2-18.0) L Hematocrit 27.4 % (42.0-52.0) L Mean Corpuscular Volume 106 FL (80-99) H Mean Corpuscular Hemoglobin 33.7 PG (27.0-31.0) H Mean Corpuscular Hemoglobin Concent 31.8 G/DL (32.0-36.0) L Red Cell Distribution Width 21.3 % (11.6-14.8) H Platelet Count 62 K/UL (150-450) L Mean Platelet Volume 5.7 FL (6.5-10.1) L Neutrophils (%) (Auto) % (45.0-75.0) Lymphocytes (%) (Auto) % (20.0-45.0) Monocytes (%) (Auto) % (1.0-10.0) Eosinophils (%) (Auto) % (0.0-3.0) Basophils (%) (Auto) % (0.0-2.0) Differential Total Cells Counted 100 Neutrophils % (Manual) 84 % (45-75) H Lymphocytes % (Manual) 6 % (20-45) L Monocytes % (Manual) 6 % (1-10) Eosinophils % (Manual) 4 % (0-3) H Basophils % (Manual) 0 % (0-2) Band Neutrophils 0 % (0-8) Platelet Estimate Decreased L Platelet Morphology Normal Hypochromasia 1+ Anisocytosis 2+ Macrocytosis 1+ Sodium Level 134 mEQ/L (135-145) L Potassium Level 4.7 mEQ/L (3.4-4.9) Chloride Level 100 mEQ/L (98-107) Carbon Dioxide Level 21 mEQ/L (20-30) Anion Gap 13 (5-15) Blood Urea Nitrogen 41 mg/dL (7-23) H Creatinine 1.6 mg/dL (0.7-1.2) H Estimat Glomerular Filtration Rate 52.8 mL/min (>60) Glucose Level 116 mg/dL (74-106) H Uric Acid 9.5 mg/dL (3.0-7.5) H Calcium Level 8.0 mg/dL (8.6-10.2) L Phosphorus Level 3.4 mg/dL (2.5-4.8) Magnesium Level 1.9 mg/dL (1.7-2.5) Total Bilirubin 2.4 mg/dL (0.0-1.2) H Direct Bilirubin 1.2 mg/dL (0.1-0.3) H Aspartate Amino Transf (AST/SGOT) 104 U/L (5-40) H Alanine Aminotransferase (ALT/SGPT) 27 U/L (3-41) Alkaline Phosphatase 156 U/L (40-129) H C-Reactive Protein, Quantitative 1.2 mg/dL (< 0.5) H Pro-B-Type Natriuretic Peptide 310 pg/mL (0-125) H Total Protein 6.4 g/dL (6.6-8.7) L Albumin 1.6 g/dL (3.5-5.2) L Globulin 4.8 g/dL Albumin/Globulin Ratio 0.3 (1.0-2.7) L Objective GENERAL: The patient is a very unfortunate 66-year-old gentleman, alert and awake, in no apparent respiratory distress. HEENT: Atraumatic and normocephalic. Anicteric. Pupils are equal, round, and reactive to light and accommodation. Extraocular muscles intact. NECK: JVP is 5 cm, but no carotid bruit. Carotid upstrokes 2+ bilaterally. CARDIOVASCULAR: Normal S1 and S2. Regular rate and rhythm. A 2/6 mid systolic murmur left sternal border. PMI is at fourth intercostal space in the midclavicular line. LUNGS: Diminished breath sounds at both bases. ABDOMEN: Distended with ascites. Positive shifting dullness. EXTREMITIES: There is 1+ to 3+ edema bilaterally. ASHLEY URIBE September 30, 2016 14:01
[2016-09-30 16:06] VITALS: BP 116/66
[2016-09-30] MEDS: Nystatin Powder 100,000 units/gm 15gm TOPIC SCH (17:27)
[2016-09-30 20:01] VITALS: BP 141/86
--- NOTE | 2016-09-30 20:17 | General Progress Note ---
Assessment/Plan Assessment/Plan IMPRESSION: 1. Thrombocytopenia secondary to alcoholic liver cirrhosis. ok to continue asa, would hold off on coumadin and/or heparin sq. Also patient with DIC as haptoglobin is <29, monitor closely, given sepsis. Has a hx of hepatitis C and 5L removed via para on admission 2. Alcoholic liver cirrhosis. 3. Anemia of bleeding diathesis from hip 4. 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 5. Acute left hip periprosthetic fracture s/p repair 6. History of alcohol abuse. 7. Hepatitis C. 8. Psychosis. 9. Failure to thrive. RECOMMENDATIONS: -. DIC test is ++ thus will monitor closely for fibrinogen and treat symptomatically if <100 -. Prior admission and heme workup has been reviewed -. Ok to continue asa, would hold off on coumadin and/or heparin sq -. Watch counts, transfuse to hgb >8 (especially in light of bleeding diathesis and cirrhosis) -. Watch coagulopathy. -. Gi service followup -. Hep C rx as outpatient -. Vitamin K prn -. Appreciate consultation! Subjective Constitutional: Reports: no symptoms HEENT: Reports: no symptoms Cardiovascular: Reports: no symptoms Respiratory: Reports: no symptoms Gastrointestinal/Abdominal: Reports: no symptoms Genitourinary: Reports: no symptoms Neurologic/Psychiatric: Reports: anxiety Endocrine: Reports: no symptoms Hematologic/Lymphatic: Reports: anemia Allergies: Coded Allergies: No Known Allergies (Unverified , 09/06/16) Subjective Monitoring counts closely, remains in icu Objective Last 24 Hour Vital Signs Date Time Temp Pulse Resp B/P Pulse Ox O2 Delivery O2 Flow Rate FiO2 09/30/16 20:01 96.8 95 20 141/86 100 Nasal Cannula 2.0 09/30/16 16:06 97.5 83 18 116/66 100 Nasal Cannula 2.0 09/30/16 11:57 97.2 79 18 129/78 98 Nasal Cannula 2.0 09/30/16 09:39 97.3 09/30/16 08:14 97.3 95 18 138/99 100 Room Air 09/30/16 04:00 97.2 91 18 133/88 100 Nasal Cannula 2.0 09/29/16 23:57 96.8 85 18 159/97 96 Nasal Cannula 2.0 Intake and Output 09/29/16 09/30/16 19:00 07:00 Intake Total 600 ml Output Total 400 ml Balance 200 ml Intake Oral 600 ml Output Urine Total 400 ml # Voids 1 # Bowel Movements 1 Laboratory Tests 09/30/16 05:00: White Blood Count 4.9, Red Blood Count 2.58L, Hemoglobin 8.7L, Hematocrit 27.4L , Mean Corpuscular Volume 106H, Mean Corpuscular Hemoglobin 33.7H, Mean Corpuscular Hemoglobin Concent 31.8L, Red Cell Distribution Width 21.3H, Platelet Count 62L, Mean Platelet Volume 5.7L, Neutrophils (%) (Auto) , Lymphocytes (%) (Auto) , Monocytes (%) (Auto) , Eosinophils (%) (Auto) , Basophils (%) (Auto) , Differential Total Cells Counted 100, Neutrophils % ( Manual) 84H, Lymphocytes % (Manual) 6L, Monocytes % (Manual) 6, Eosinophils % ( Manual) 4H, Basophils % (Manual) 0, Band Neutrophils 0, Platelet Estimate DecreasedL, Platelet Morphology Normal, Hypochromasia 1+, Anisocytosis 2+, Macrocytosis 1+, Sodium Level 134L, Potassium Level 4.7, Chloride Level 100, Carbon Dioxide Level 21, Anion Gap 13, Blood Urea Nitrogen 41H, Creatinine 1.6H , Estimat Glomerular Filtration Rate 52.8, Glucose Level 116H, Uric Acid 9.5H, Calcium Level 8.0L, Phosphorus Level 3.4, Magnesium Level 1.9, Total Bilirubin 2.4H, Direct Bilirubin 1.2H, Aspartate Amino Transf (AST/SGOT) 104H, Alanine Aminotransferase (ALT/SGPT) 27, Alkaline Phosphatase 156H, C-Reactive Protein, Quantitative 1.2H, Pro-B-Type Natriuretic Peptide 310H, Total Protein 6.4L, Albumin 1.6L, Globulin 4.8, Albumin/Globulin Ratio 0.3L Height (Feet): 6 Height (Inches): 2.00 Weight (Pounds): 232 General Appearance: alert EENT: TMs normal Neck: supple Cardiovascular: regular rhythm Respiratory/Chest: normal breath sounds Abdomen: no mass Extremities: non-tender Edema: no edema noted Leg (L), no edema noted Leg (R) Darren Snyder September 30, 2016 20:17
[2016-09-30] MEDS: Tamsulosin 0.4mg cap ORAL SCH (20:28)
--- NOTE | 2016-09-30 22:51 | Pulmonology Progress Note ---
Subjective Allergies: Coded Allergies: No Known Allergies (Unverified , 09/06/16) Objective Last 24 Hour Vital Signs Date Time Temp Pulse Resp B/P Pulse Ox O2 Delivery O2 Flow Rate FiO2 09/30/16 20:01 96.8 95 20 141/86 100 Nasal Cannula 2.0 09/30/16 16:06 97.5 83 18 116/66 100 Nasal Cannula 2.0 09/30/16 11:57 97.2 79 18 129/78 98 Nasal Cannula 2.0 09/30/16 09:39 97.3 09/30/16 08:14 97.3 95 18 138/99 100 Room Air 09/30/16 04:00 97.2 91 18 133/88 100 Nasal Cannula 2.0 09/29/16 23:57 96.8 85 18 159/97 96 Nasal Cannula 2.0 Intake and Output 09/29/16 09/30/16 19:00 07:00 Intake Total 600 ml Output Total 400 ml Balance 200 ml Intake Oral 600 ml Output Urine Total 400 ml # Voids 1 # Bowel Movements 1 Laboratory Tests 09/30/16 05:00: White Blood Count 4.9, Red Blood Count 2.58L, Hemoglobin 8.7L, Hematocrit 27.4L , Mean Corpuscular Volume 106H, Mean Corpuscular Hemoglobin 33.7H, Mean Corpuscular Hemoglobin Concent 31.8L, Red Cell Distribution Width 21.3H, Platelet Count 62L, Mean Platelet Volume 5.7L, Neutrophils (%) (Auto) , Lymphocytes (%) (Auto) , Monocytes (%) (Auto) , Eosinophils (%) (Auto) , Basophils (%) (Auto) , Differential Total Cells Counted 100, Neutrophils % ( Manual) 84H, Lymphocytes % (Manual) 6L, Monocytes % (Manual) 6, Eosinophils % ( Manual) 4H, Basophils % (Manual) 0, Band Neutrophils 0, Platelet Estimate DecreasedL, Platelet Morphology Normal, Hypochromasia 1+, Anisocytosis 2+, Macrocytosis 1+, Sodium Level 134L, Potassium Level 4.7, Chloride Level 100, Carbon Dioxide Level 21, Anion Gap 13, Blood Urea Nitrogen 41H, Creatinine 1.6H , Estimat Glomerular Filtration Rate 52.8, Glucose Level 116H, Uric Acid 9.5H, Calcium Level 8.0L, Phosphorus Level 3.4, Magnesium Level 1.9, Total Bilirubin 2.4H, Direct Bilirubin 1.2H, Aspartate Amino Transf (AST/SGOT) 104H, Alanine Aminotransferase (ALT/SGPT) 27, Alkaline Phosphatase 156H, C-Reactive Protein, Quantitative 1.2H, Pro-B-Type Natriuretic Peptide 310H, Total Protein 6.4L, Albumin 1.6L, Globulin 4.8, Albumin/Globulin Ratio 0.3L Current Medications Medications (Trade) Dose Ordered Sig/Carolynn Route PRN Reason Start Time Stop Time Status Last Admin Dose Admin Acetaminophen (Tylenol) 650 mg Q4H PRN ORAL Mild Pain/Temp > 100.5 09/28/16 23:00 10/28/16 22:59 Acetaminophen/ Hydrocodone Bitart ([place] 5/325) 1 tab Q4H PRN ORAL Moderate Pain (Pain Scale 4-6) 09/28/16 23:00 10/05/16 22:59 09/30/16 08:40 Ascorbic Acid (Vitamin C) 500 mg DAILY ORAL 09/29/16 09:00 10/29/16 08:59 09/30/16 08:17 Aspirin (Ecotrin) 81 mg DAILY ORAL 09/29/16 09:00 10/29/16 08:59 09/30/16 08:17 Bisacodyl (Dulcolax) 10 mg DAILYPRN PRN RECTAL Constipation 09/29/16 19:00 10/29/16 18:59 Docusate Sodium (Colace) 100 mg TWICE A DAY ORAL 09/29/16 09:00 10/29/16 08:59 09/30/16 17:05 Ergocalciferol (Drisdol) 50,000 intlu MoTh ORAL 09/30/16 09:00 10/30/16 08:59 09/30/16 08:17 Finasteride (Proscar) 5 mg DAILY ORAL 09/29/16 14:00 10/29/16 13:59 09/30/16 08:17 Lactulose (Cephulac) 30 gm BID ORAL 09/29/16 09:00 10/29/16 08:59 09/30/16 17:05 Midodrine (Pro-Amatine) 2.5 mg THREE TIMES A DAY ORAL 09/30/16 13:00 10/30/16 12:59 09/30/16 17:05 Nystatin (Nystop Powder) 1 applic THREE TIMES A DAY TOPIC 09/30/16 18:00 10/30/16 17:59 09/30/16 17:27 Pantoprazole (Protonix) 40 mg EVERY 12 HOURS ORAL 09/30/16 21:00 10/30/16 20:59 09/30/16 20:29 Rifaximin (Xifaxan) 550 mg TWICE A DAY ORAL 09/29/16 09:00 10/06/16 08:59 09/30/16 17:05 Sodium Chloride (NS) 550 ml @ 0 mls/hr Q0M PRN IV PRN SBP < 95 09/28/16 21:30 10/28/16 21:29 Tamsulosin HCl (Flomax) 0.4 mg BEDTIME ORAL 09/29/16 21:00 10/29/16 20:59 09/30/16 20:28 CIRA KOCH September 30, 2016 22:51
[2016-10-01] VITALS: BP 114/75
[2016-10-01 04:00] VITALS: BP 133/94
[2016-10-01] MEDS: Norco 5mg/325mg tab ORAL PRN ×2 (06:09→21:25)
[2016-10-01 07:27] LABS: ALBUMIN/GLOBULIN RATIO 0.3 (1.0-2.7); CALCIUM 8.3 mg/dL (8.6-10.2); CREATININE 1.5 mg/dL (0.7-1.2); POTASSIUM 5.1 mEQ/L (3.4-4.9); TOTAL PROTEIN 6.2 g/dL (6.6-8.7)
[2016-10-01 07:35] LABS: MEAN CORPUSCULAR HEMOGLOBIN 33.5 PG (27.0-31.0); MEAN CORPUSCULAR HGB CONC 31.5 G/DL (32.0-36.0); MEAN CORPUSCULAR VOLUME 106 FL (80-99); MEAN PLATELET VOLUME 6.1 FL (6.5-10.1); PLATELET COUNT 53 K/UL (150-450); RED BLOOD COUNT 2.51 M/UL (4.70-6.10); RED CELL DISTRIBUTION WIDTH 21.1 % (11.6-14.8); WHITE BLOOD COUNT 3.5 K/UL (4.8-10.8)
[2016-10-01 07:41] LABS: BILIRUBIN,DIRECT 1.2 mg/dL (0.1-0.3)
[2016-10-01 08:38] VITALS: BP 92/60
--- NOTE | 2016-10-01 08:46 | General Progress Note ---
Assessment/Plan Assessment/Plan (1) Dementia (2) S/p Mechanical fall (3) Left hip Fracture (4) Left hip pain (5) S/p Left hip hemiarthroplasty Patient will be continued on [place] as needed. Parameters continued. D/w Dr. Donald and he concurred. Subjective Date patient seen: October 01, 2016 Time patient seen: 07:00 - am Allergies: Coded Allergies: No Known Allergies (Unverified , 09/06/16) Subjective REVIEW OF SYSTEMS: Complaining of left hip pain SUBJECTIVE: Patient is reporting pain is tolerable, reduced from a 7/10 to a 2/10 on the [place]. Objective Last 24 Hour Vital Signs Date Time Temp Pulse Resp B/P Pulse Ox O2 Delivery O2 Flow Rate FiO2 10/01/16 08:38 98.2 96 18 92/60 100 Nasal Cannula 2.0 10/01/16 07:08 97.9 10/01/16 04:00 97.9 99 18 133/94 100 Nasal Cannula 2.0 10/01/16 00:00 97.5 87 18 114/75 100 Nasal Cannula 2.0 09/30/16 20:01 96.8 95 20 141/86 100 Nasal Cannula 2.0 09/30/16 16:06 97.5 83 18 116/66 100 Nasal Cannula 2.0 09/30/16 11:57 97.2 79 18 129/78 98 Nasal Cannula 2.0 Intake and Output 09/30/16 10/01/16 19:00 07:00 Intake Total 480 ml 260 ml Output Total 350 ml Balance 480 ml -90 ml Intake Oral 480 ml 260 ml Output Urine Total 350 ml # Voids 3 # Bowel Movements 2 Laboratory Tests 10/01/16 05:00: White Blood Count 3.5L, Red Blood Count 2.51L, Hemoglobin 8.4L, Hematocrit 26.7L , Mean Corpuscular Volume 106H, Mean Corpuscular Hemoglobin 33.5H, Mean Corpuscular Hemoglobin Concent 31.5L, Red Cell Distribution Width 21.1H, Platelet Count 53L, Mean Platelet Volume 6.1L, Neutrophils (%) (Auto) , Lymphocytes (%) (Auto) , Monocytes (%) (Auto) , Eosinophils (%) (Auto) , Basophils (%) (Auto) , Neutrophils % (Manual) [Pending], Lymphocytes % (Manual) [Pending], Platelet Estimate [Pending], Platelet Morphology [Pending], Sodium Level 134L, Potassium Level 5.1H, Chloride Level 100, Carbon Dioxide Level 21, Anion Gap 13, Blood Urea Nitrogen 37H, Creatinine 1.5H, Estimat Glomerular Filtration Rate 57.0, Glucose Level 96, Calcium Level 8.3L, Total Bilirubin 2.6H , Direct Bilirubin 1.2H, Aspartate Amino Transf (AST/SGOT) 108H, Alanine Aminotransferase (ALT/SGPT) 29, Alkaline Phosphatase 173H, Total Protein 6.2L, Albumin 1.5L, Globulin 4.7, Albumin/Globulin Ratio 0.3L Height (Feet): 6 Height (Inches): 2.00 Weight (Pounds): 232 Objective GENERAL: Alert and awake. HEENT: PERRLA. NECK: Range of motion is full in all directions. No tenderness to paracervical muscles. LUNGS: Clear. HEART: Regular. ABDOMEN: Distended. BACK: Range of motion is decreased in flexion and extension. EXTREMITIES: Lower extremity motion is decreased over the left hip. Tenderness to palpation. SLOAN PACKER October 01, 2016 08:46
--- NOTE | 2016-10-01 09:24 | General Progress Note ---
Assessment/Plan Status: unchanged Status Narrative Cr 1.5 at its lowest Assessment/Plan status; Acute renal failure- Severe Anemia HyperKalemia- resolved Dehydration Proteinuria UTI High INR others: 1. s/p Status post mechanical fall. 2. Left periprosthetic femoral fracture. 3. Alcoholic liver cirrhosis. 4. s/p Elevated transaminase. 5. 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 6. Elevated tumor markers (CEA, AFP/alpha-fetoprotein). 7. Acute hepatic encephalopathy. 8. Hypertension. 9. Dementia. 10. Psychosis. 11. History of hemiarthroplasty, left hip, recent. 12. Hepatitis C. 13. History of alcohol abuse. 14. Anemia of chronic disease. 15. Thrombocytopenia, secondary to alcohol abuse. Plan; Transfuse as needed down dose Midodrine- hold mind altering meds- antibiotics - avoid nephrotoxics urine studies monitor renal parameters Tap Ascitis PRN per orders Subjective ROS Limited/Unobtainable: No Constitutional: Reports: malaise Allergies: Coded Allergies: No Known Allergies (Unverified , 09/06/16) Objective Last 24 Hour Vital Signs Date Time Temp Pulse Resp B/P Pulse Ox O2 Delivery O2 Flow Rate FiO2 10/01/16 08:38 98.2 96 18 92/60 100 Nasal Cannula 2.0 10/01/16 07:08 97.9 10/01/16 04:00 97.9 99 18 133/94 100 Nasal Cannula 2.0 10/01/16 00:00 97.5 87 18 114/75 100 Nasal Cannula 2.0 09/30/16 20:01 96.8 95 20 141/86 100 Nasal Cannula 2.0 09/30/16 16:06 97.5 83 18 116/66 100 Nasal Cannula 2.0 09/30/16 11:57 97.2 79 18 129/78 98 Nasal Cannula 2.0 Intake and Output 09/30/16 10/01/16 19:00 07:00 Intake Total 480 ml 260 ml Output Total 350 ml Balance 480 ml -90 ml Intake Oral 480 ml 260 ml Output Urine Total 350 ml # Voids 3 # Bowel Movements 2 Laboratory Tests 10/01/16 05:00: White Blood Count 3.5L, Red Blood Count 2.51L, Hemoglobin 8.4L, Hematocrit 26.7L , Mean Corpuscular Volume 106H, Mean Corpuscular Hemoglobin 33.5H, Mean Corpuscular Hemoglobin Concent 31.5L, Red Cell Distribution Width 21.1H, Platelet Count 53L, Mean Platelet Volume 6.1L, Neutrophils (%) (Auto) , Lymphocytes (%) (Auto) , Monocytes (%) (Auto) , Eosinophils (%) (Auto) , Basophils (%) (Auto) , Neutrophils % (Manual) [Pending], Lymphocytes % (Manual) [Pending], Platelet Estimate [Pending], Platelet Morphology [Pending], Sodium Level 134L, Potassium Level 5.1H, Chloride Level 100, Carbon Dioxide Level 21, Anion Gap 13, Blood Urea Nitrogen 37H, Creatinine 1.5H, Estimat Glomerular Filtration Rate 57.0, Glucose Level 96, Calcium Level 8.3L, Total Bilirubin 2.6H , Direct Bilirubin 1.2H, Aspartate Amino Transf (AST/SGOT) 108H, Alanine Aminotransferase (ALT/SGPT) 29, Alkaline Phosphatase 173H, Total Protein 6.2L, Albumin 1.5L, Globulin 4.7, Albumin/Globulin Ratio 0.3L Height (Feet): 6 Height (Inches): 2.00 Weight (Pounds): 232 General Appearance: no apparent distress, lethargic Cardiovascular: tachycardia Respiratory/Chest: decreased breath sounds Abdomen: soft Objective no change in PE PRINCESS PALACIO October 01, 2016 09:24
--- NOTE | 2016-10-01 09:51 | Infectious Diseases Prog Note ---
Assessment/Plan Assessment/Plan A: No evid of sepsis at this time SP Hypotension SP Paracentesis no evidence of SPB No evidence of surgical site infection at this time Hepatitis C antibody + HIV : neg Depression Hypotension due to bradycardia Dementia Alcohol abuse Anemia History of left hip surgery four months ago CT of the pelvis, left hip : hemiarthroplasty, fracture of intertrochanteric region of the femur, soft tissue swelling, hematoma, and ascites PLAN: Monitor the patient off of antibiotics Monitor CBC Monitor BMP. Monitor cultures of the blood and urine Subjective Constitutional: Denies: anorexia, chills, drenching sweats, fatigue, fever, no symptoms, other Allergies: Coded Allergies: No Known Allergies (Unverified , 09/06/16) Subjective Objective Vital Signs Last 24 Hour Vital Signs Date Time Temp Pulse Resp B/P Pulse Ox O2 Delivery O2 Flow Rate FiO2 10/01/16 08:38 98.2 96 18 92/60 100 Nasal Cannula 2.0 10/01/16 07:08 97.9 10/01/16 04:00 97.9 99 18 133/94 100 Nasal Cannula 2.0 10/01/16 00:00 97.5 87 18 114/75 100 Nasal Cannula 2.0 09/30/16 20:01 96.8 95 20 141/86 100 Nasal Cannula 2.0 09/30/16 16:06 97.5 83 18 116/66 100 Nasal Cannula 2.0 09/30/16 11:57 97.2 79 18 129/78 98 Nasal Cannula 2.0 Height (Feet): 6 Height (Inches): 2.00 Weight (Pounds): 232 HEENT: anicteric Respiratory/Chest: normal breath sounds Cardiovascular: regularly irregular Abdomen: no organomegaly Laboratory Tests Test 10/01/16 05:00 White Blood Count 3.5 K/UL (4.8-10.8) L Red Blood Count 2.51 M/UL (4.70-6.10) L Hemoglobin 8.4 G/DL (14.2-18.0) L Hematocrit 26.7 % (42.0-52.0) L Mean Corpuscular Volume 106 FL (80-99) H Mean Corpuscular Hemoglobin 33.5 PG (27.0-31.0) H Mean Corpuscular Hemoglobin Concent 31.5 G/DL (32.0-36.0) L Red Cell Distribution Width 21.1 % (11.6-14.8) H Platelet Count 53 K/UL (150-450) L Mean Platelet Volume 6.1 FL (6.5-10.1) L Neutrophils (%) (Auto) % (45.0-75.0) Lymphocytes (%) (Auto) % (20.0-45.0) Monocytes (%) (Auto) % (1.0-10.0) Eosinophils (%) (Auto) % (0.0-3.0) Basophils (%) (Auto) % (0.0-2.0) Neutrophils % (Manual) Pending Lymphocytes % (Manual) Pending Platelet Estimate Pending Platelet Morphology Pending Sodium Level 134 mEQ/L (135-145) L Potassium Level 5.1 mEQ/L (3.4-4.9) H Chloride Level 100 mEQ/L (98-107) Carbon Dioxide Level 21 mEQ/L (20-30) Anion Gap 13 (5-15) Blood Urea Nitrogen 37 mg/dL (7-23) H Creatinine 1.5 mg/dL (0.7-1.2) H Estimat Glomerular Filtration Rate 57.0 mL/min (>60) Glucose Level 96 mg/dL (74-106) Calcium Level 8.3 mg/dL (8.6-10.2) L Total Bilirubin 2.6 mg/dL (0.0-1.2) H Direct Bilirubin 1.2 mg/dL (0.1-0.3) H Aspartate Amino Transf (AST/SGOT) 108 U/L (5-40) H Alanine Aminotransferase (ALT/SGPT) 29 U/L (3-41) Alkaline Phosphatase 173 U/L (40-129) H Total Protein 6.2 g/dL (6.6-8.7) L Albumin 1.5 g/dL (3.5-5.2) L Globulin 4.7 g/dL Albumin/Globulin Ratio 0.3 (1.0-2.7) L Current Medications Medications (Trade) Dose Ordered Sig/Carolynn Route PRN Reason Start Time Stop Time Status Last Admin Dose Admin Acetaminophen (Tylenol) 650 mg Q4H PRN ORAL Mild Pain/Temp > 100.5 09/28/16 23:00 10/28/16 22:59 Acetaminophen/ Hydrocodone Bitart ([place] 5/325) 1 tab Q4H PRN ORAL Moderate Pain (Pain Scale 4-6) 09/28/16 23:00 10/05/16 22:59 10/01/16 06:09 Ascorbic Acid (Vitamin C) 500 mg DAILY ORAL 09/29/16 09:00 10/29/16 08:59 09/30/16 08:17 Aspirin (Ecotrin) 81 mg DAILY ORAL 09/29/16 09:00 10/29/16 08:59 09/30/16 08:17 Bisacodyl (Dulcolax) 10 mg DAILYPRN PRN RECTAL Constipation 09/29/16 19:00 10/29/16 18:59 Docusate Sodium (Colace) 100 mg TWICE A DAY ORAL 09/29/16 09:00 10/29/16 08:59 09/30/16 17:05 Ergocalciferol (Drisdol) 50,000 intlu MoTh ORAL 09/30/16 09:00 10/30/16 08:59 09/30/16 08:17 Finasteride (Proscar) 5 mg DAILY ORAL 09/29/16 14:00 10/29/16 13:59 09/30/16 08:17 Lactulose (Cephulac) 30 gm BID ORAL 09/29/16 09:00 10/29/16 08:59 09/30/16 17:05 Midodrine (Pro-Amatine) 2.5 mg THREE TIMES A DAY ORAL 09/30/16 13:00 10/30/16 12:59 09/30/16 17:05 Nystatin (Nystop Powder) 1 applic THREE TIMES A DAY TOPIC 09/30/16 18:00 10/30/16 17:59 09/30/16 17:27 Pantoprazole (Protonix) 40 mg EVERY 12 HOURS ORAL 09/30/16 21:00 10/30/16 20:59 09/30/16 20:29 Rifaximin (Xifaxan) 550 mg TWICE A DAY ORAL 09/29/16 09:00 10/06/16 08:59 09/30/16 17:05 Sodium Polystyrene Sulfonate (Kayexalate) 45 gm ONCE ONCE ORAL 10/01/16 10:00 10/01/16 10:01 Sodium Chloride (NS) 550 ml @ 0 mls/hr Q0M PRN IV PRN SBP < 95 09/28/16 21:30 10/28/16 21:29 Sodium Chloride (NaCl) 2 gm ONCE ONCE ORAL 10/01/16 10:00 10/01/16 10:01 Tamsulosin HCl (Flomax) 0.4 mg BEDTIME ORAL 09/29/16 21:00 10/29/16 20:59 09/30/16 20:28 CHAY DOMINGO M.D. October 01, 2016 09:51
--- NOTE | 2016-10-01 09:52 | Urology Progress Note ---
Assessment/Plan Assessment/Plan 1. Urinary retention. 2. Benign prostatic hypertrophy. 3. Possible neurogenic bladder. 4. Hematuria. 5. Pyuria. 6. Proteinuria. 7. Renal insufficiency which is acute on chronic. weeks out flomax and proscar resumed monitor renal fxn Subjective Allergies: Coded Allergies: No Known Allergies (Unverified , 09/06/16) Subjective all noted, voiding, PVR reported zero cc per nurse Objective Last 24 Hour Vital Signs Date Time Temp Pulse Resp B/P Pulse Ox O2 Delivery O2 Flow Rate FiO2 10/01/16 08:38 98.2 96 18 92/60 100 Nasal Cannula 2.0 10/01/16 07:08 97.9 10/01/16 04:00 97.9 99 18 133/94 100 Nasal Cannula 2.0 10/01/16 00:00 97.5 87 18 114/75 100 Nasal Cannula 2.0 09/30/16 20:01 96.8 95 20 141/86 100 Nasal Cannula 2.0 09/30/16 16:06 97.5 83 18 116/66 100 Nasal Cannula 2.0 09/30/16 11:57 97.2 79 18 129/78 98 Nasal Cannula 2.0 Intake and Output 09/30/16 10/01/16 19:00 07:00 Intake Total 480 ml 260 ml Output Total 350 ml Balance 480 ml -90 ml Intake Oral 480 ml 260 ml Output Urine Total 350 ml # Voids 3 # Bowel Movements 2 Microbiology Date/Time Source Procedure Growth Status 09/25/16 21:05 Blood Blood Culture - Final NO GROWTH AFTER 5 DAYS Complete 09/24/16 02:35 Nasal Nares MRSA Culture - Final NO METHICILLIN RESISTANT STAPH AUREUS... Complete 09/25/16 21:00 Urine,Clean Catch Urine Culture - Final NO GROWTH AFTER 48 HOURS Complete 09/26/16 14:15 Abdominal Fluid Gram Stain - Final Complete 09/26/16 14:15 Abdominal Fluid Body Fluid Culture - Final NO GROWTH Complete Current Medications Medications (Trade) Dose Ordered Sig/Carolynn Route PRN Reason Start Time Stop Time Status Last Admin Dose Admin Acetaminophen (Tylenol) 650 mg Q4H PRN ORAL Mild Pain/Temp > 100.5 09/28/16 23:00 10/28/16 22:59 Acetaminophen/ Hydrocodone Bitart ([place] 5/325) 1 tab Q4H PRN ORAL Moderate Pain (Pain Scale 4-6) 09/28/16 23:00 10/05/16 22:59 10/01/16 06:09 Ascorbic Acid (Vitamin C) 500 mg DAILY ORAL 09/29/16 09:00 10/29/16 08:59 09/30/16 08:17 Aspirin (Ecotrin) 81 mg DAILY ORAL 09/29/16 09:00 10/29/16 08:59 09/30/16 08:17 Bisacodyl (Dulcolax) 10 mg DAILYPRN PRN RECTAL Constipation 09/29/16 19:00 10/29/16 18:59 Docusate Sodium (Colace) 100 mg TWICE A DAY ORAL 09/29/16 09:00 10/29/16 08:59 09/30/16 17:05 Ergocalciferol (Drisdol) 50,000 intlu MoTh ORAL 09/30/16 09:00 10/30/16 08:59 09/30/16 08:17 Finasteride (Proscar) 5 mg DAILY ORAL 09/29/16 14:00 10/29/16 13:59 09/30/16 08:17 Lactulose (Cephulac) 30 gm BID ORAL 09/29/16 09:00 10/29/16 08:59 09/30/16 17:05 Midodrine (Pro-Amatine) 2.5 mg THREE TIMES A DAY ORAL 09/30/16 13:00 10/30/16 12:59 09/30/16 17:05 Nystatin (Nystop Powder) 1 applic THREE TIMES A DAY TOPIC 09/30/16 18:00 10/30/16 17:59 09/30/16 17:27 Pantoprazole (Protonix) 40 mg EVERY 12 HOURS ORAL 09/30/16 21:00 10/30/16 20:59 09/30/16 20:29 Rifaximin (Xifaxan) 550 mg TWICE A DAY ORAL 09/29/16 09:00 10/06/16 08:59 09/30/16 17:05 Sodium Polystyrene Sulfonate (Kayexalate) 45 gm ONCE ONCE ORAL 10/01/16 10:00 10/01/16 10:01 Sodium Chloride (NS) 550 ml @ 0 mls/hr Q0M PRN IV PRN SBP < 95 09/28/16 21:30 10/28/16 21:29 Sodium Chloride (NaCl) 2 gm ONCE ONCE ORAL 10/01/16 10:00 10/01/16 10:01 Tamsulosin HCl (Flomax) 0.4 mg BEDTIME ORAL 09/29/16 21:00 10/29/16 20:59 09/30/16 20:28 Laboratory Tests 10/01/16 05:00: White Blood Count 3.5L, Red Blood Count 2.51L, Hemoglobin 8.4L, Hematocrit 26.7L , Mean Corpuscular Volume 106H, Mean Corpuscular Hemoglobin 33.5H, Mean Corpuscular Hemoglobin Concent 31.5L, Red Cell Distribution Width 21.1H, Platelet Count 53L, Mean Platelet Volume 6.1L, Neutrophils (%) (Auto) , Lymphocytes (%) (Auto) , Monocytes (%) (Auto) , Eosinophils (%) (Auto) , Basophils (%) (Auto) , Neutrophils % (Manual) [Pending], Lymphocytes % (Manual) [Pending], Platelet Estimate [Pending], Platelet Morphology [Pending], Sodium Level 134L, Potassium Level 5.1H, Chloride Level 100, Carbon Dioxide Level 21, Anion Gap 13, Blood Urea Nitrogen 37H, Creatinine 1.5H, Estimat Glomerular Filtration Rate 57.0, Glucose Level 96, Calcium Level 8.3L, Total Bilirubin 2.6H , Direct Bilirubin 1.2H, Aspartate Amino Transf (AST/SGOT) 108H, Alanine Aminotransferase (ALT/SGPT) 29, Alkaline Phosphatase 173H, Total Protein 6.2L, Albumin 1.5L, Globulin 4.7, Albumin/Globulin Ratio 0.3L Height (Feet): 6 Height (Inches): 2.00 Weight (Pounds): 232 Objective exam stable MESHA TRUONG October 01, 2016 09:52
--- NOTE | 2016-10-01 09:57 | General Progress Note ---
Assessment/Plan Status: stable Assessment/Plan 1. Shock: ddx, cardiogenic secondary to arrythmai, 2. Bradycardia-junctional rhythm, 3.Bleeding diatheses from the postoperative left-sided hip area. 4. Left-sided hip fracture, status post complicated course of infection and revision surgery in [facility] in August 2016. 5. Acute anemia. 6. Anxiety and depression. 5. Dementia. 6. Alcoholic cirrhosis. 7. Chronic Hep-C 7. Hypercoagulable state. 8. Iron deficiency anemia. 9. Pain management. 11. A/C Renal failure 12. Ascites: S/p paracenthesis twice 10. Gastrointestinal and deep vein thrombosis prophylaxis. Plan: Ok to resume Alpha bladimir and proceed with Voiding trial Ok to continue ASA, per [facility] Notes are reviewed Poor Prognosis, but stable at this time Hgb not stable yet Ascites worsening Will monitor urination off Carter Subjective ROS Limited/Unobtainable: Yes Allergies: Coded Allergies: No Known Allergies (Unverified , 09/06/16) Objective Last 24 Hour Vital Signs Date Time Temp Pulse Resp B/P Pulse Ox O2 Delivery O2 Flow Rate FiO2 10/01/16 08:38 98.2 96 18 92/60 100 Nasal Cannula 2.0 10/01/16 07:08 97.9 10/01/16 04:00 97.9 99 18 133/94 100 Nasal Cannula 2.0 10/01/16 00:00 97.5 87 18 114/75 100 Nasal Cannula 2.0 09/30/16 20:01 96.8 95 20 141/86 100 Nasal Cannula 2.0 09/30/16 16:06 97.5 83 18 116/66 100 Nasal Cannula 2.0 09/30/16 11:57 97.2 79 18 129/78 98 Nasal Cannula 2.0 Intake and Output 09/30/16 10/01/16 19:00 07:00 Intake Total 480 ml 260 ml Output Total 350 ml Balance 480 ml -90 ml Intake Oral 480 ml 260 ml Output Urine Total 350 ml # Voids 3 # Bowel Movements 2 Laboratory Tests 10/01/16 05:00: White Blood Count 3.5L, Red Blood Count 2.51L, Hemoglobin 8.4L, Hematocrit 26.7L , Mean Corpuscular Volume 106H, Mean Corpuscular Hemoglobin 33.5H, Mean Corpuscular Hemoglobin Concent 31.5L, Red Cell Distribution Width 21.1H, Platelet Count 53L, Mean Platelet Volume 6.1L, Neutrophils (%) (Auto) , Lymphocytes (%) (Auto) , Monocytes (%) (Auto) , Eosinophils (%) (Auto) , Basophils (%) (Auto) , Neutrophils % (Manual) [Pending], Lymphocytes % (Manual) [Pending], Platelet Estimate [Pending], Platelet Morphology [Pending], Sodium Level 134L, Potassium Level 5.1H, Chloride Level 100, Carbon Dioxide Level 21, Anion Gap 13, Blood Urea Nitrogen 37H, Creatinine 1.5H, Estimat Glomerular Filtration Rate 57.0, Glucose Level 96, Calcium Level 8.3L, Total Bilirubin 2.6H , Direct Bilirubin 1.2H, Aspartate Amino Transf (AST/SGOT) 108H, Alanine Aminotransferase (ALT/SGPT) 29, Alkaline Phosphatase 173H, Total Protein 6.2L, Albumin 1.5L, Globulin 4.7, Albumin/Globulin Ratio 0.3L Height (Feet): 6 Height (Inches): 2.00 Weight (Pounds): 232 General Appearance: no apparent distress EENT: PERRL/EOMI Neck: supple Cardiovascular: normal rate Respiratory/Chest: lungs clear Abdomen: distended, other - Severe Ascitic fluid Extremities: non-tender Edema: 1+ Leg (R), 1+ Pedal (L) Neurologic: disoriented, other - demented at base line Shanita Oden MD October 01, 2016 09:57
[2016-10-01] MEDS ORDERED: Sodium Chloride 1gm Tab ORAL ONE (10:00)
[2016-10-01] MEDS ORDERED: Sodium Polystyrene Sulfonate 15gm Powder ORAL ONE (10:00)
[2016-10-01] MEDS: Lactulose 20gm/30ml UDC ORAL SCH ×2 (10:10→17:26)
[2016-10-01] MEDS: Ascorbic Acid 500mg tab ORAL SCH (10:10)
[2016-10-01] MEDS: Rifaximin 550mg tab ORAL SCH ×2 (10:10→17:26)
[2016-10-01] MEDS: Nystatin Powder 100,000 units/gm 15gm TOPIC SCH ×3 (10:10→17:27)
[2016-10-01] MEDS: Aspirin EC 81mg tab ORAL SCH (10:10)
[2016-10-01] MEDS: Docusate 100mg cap ORAL SCH ×2 (10:10→17:26)
[2016-10-01 10:16] LABS: ANISOCYTOSIS 3+; BAND NEUTROPHILS % (MANUAL) 0 % (0-8); BASOPHILS % (MANUAL) 1 % (0-2); EOSINOPHILS % (MANUAL) 3 % (0-3); HYPOCHROMASIA 2+; LYMPHOCYTES % (MANUAL) 15 % (20-45); MACROCYTES 1+; NEUTROPHILS % (MANUAL) 73 % (45-75); PLATELET ESTIMATE DECREASED; PLATELET MORPHOLOGY NORMAL; TOTAL CELLS COUNTED 100
--- NOTE | 2016-10-01 11:05 | GI Progress Note ---
Assessment/Plan Problems: (1) Acute hepatic encephalopathy ICD Codes: K72.00 - Acute and subacute hepatic failure without coma SNOMED: 54888754 (2) LFT elevation ICD Codes: R94.5 - Abnormal results of liver function studies SNOMED: 803378322 (3) History of alcoholism ICD Codes: F10.21 - Alcohol dependence, in remission SNOMED: 217619133 (4) Elevated CEA ICD Codes: R97.0 - Elevated carcinoembryonic antigen [CEA] SNOMED: 17888738, 276972333 (5) Anemia ICD Codes: D64.9 - Anemia, unspecified SNOMED: 299782953 Qualifiers: Qualified Codes: D64.9 - Anemia, unspecified (6) Dehydration ICD Codes: E86.0 - Dehydration SNOMED: 94613086 Status: doing well, stable Status Narrative Discussed with Dr. Bojorquez. Assessment/Plan S/P EGD - FINDINGS: 1. Severe portal hypertensive gastropathy. Status post biopsy. >> unremarkable 2. Distal esophageal varices grade I/II without any stigmata. ok for DC per GI standpoint >> recommend outpatient colonoscopy Hep C positive elevated CEA >> 9.6 s/p paracentesis >> 5L yield >> SBP negative ammonia WNL >> cont lactulose + Xifaxan stable H&H OB stool uncollected ppi dc propranolol fu labs Subjective Gastrointestinal/Abdominal: Reports: abdomen distended - ascities Objective Last 24 Hour Vital Signs Date Time Temp Pulse Resp B/P Pulse Ox O2 Delivery O2 Flow Rate FiO2 10/01/16 08:38 98.2 96 18 92/60 100 Nasal Cannula 2.0 10/01/16 07:08 97.9 10/01/16 04:00 97.9 99 18 133/94 100 Nasal Cannula 2.0 10/01/16 00:00 97.5 87 18 114/75 100 Nasal Cannula 2.0 09/30/16 20:01 96.8 95 20 141/86 100 Nasal Cannula 2.0 09/30/16 16:06 97.5 83 18 116/66 100 Nasal Cannula 2.0 09/30/16 11:57 97.2 79 18 129/78 98 Nasal Cannula 2.0 Intake and Output 09/30/16 10/01/16 19:00 07:00 Intake Total 480 ml 260 ml Output Total 350 ml Balance 480 ml -90 ml Intake Oral 480 ml 260 ml Output Urine Total 350 ml # Voids 3 # Bowel Movements 2 Laboratory Tests Test 10/01/16 05:00 White Blood Count 3.5 K/UL (4.8-10.8) L Red Blood Count 2.51 M/UL (4.70-6.10) L Hemoglobin 8.4 G/DL (14.2-18.0) L Hematocrit 26.7 % (42.0-52.0) L Mean Corpuscular Volume 106 FL (80-99) H Mean Corpuscular Hemoglobin 33.5 PG (27.0-31.0) H Mean Corpuscular Hemoglobin Concent 31.5 G/DL (32.0-36.0) L Red Cell Distribution Width 21.1 % (11.6-14.8) H Platelet Count 53 K/UL (150-450) L Mean Platelet Volume 6.1 FL (6.5-10.1) L Neutrophils (%) (Auto) % (45.0-75.0) Lymphocytes (%) (Auto) % (20.0-45.0) Monocytes (%) (Auto) % (1.0-10.0) Eosinophils (%) (Auto) % (0.0-3.0) Basophils (%) (Auto) % (0.0-2.0) Differential Total Cells Counted 100 Neutrophils % (Manual) 73 % (45-75) Lymphocytes % (Manual) 15 % (20-45) L Monocytes % (Manual) 8 % (1-10) Eosinophils % (Manual) 3 % (0-3) Basophils % (Manual) 1 % (0-2) Band Neutrophils 0 % (0-8) Platelet Estimate Decreased L Platelet Morphology Normal Hypochromasia 2+ Anisocytosis 3+ Macrocytosis 1+ Sodium Level 134 mEQ/L (135-145) L Potassium Level 5.1 mEQ/L (3.4-4.9) H Chloride Level 100 mEQ/L (98-107) Carbon Dioxide Level 21 mEQ/L (20-30) Anion Gap 13 (5-15) Blood Urea Nitrogen 37 mg/dL (7-23) H Creatinine 1.5 mg/dL (0.7-1.2) H Estimat Glomerular Filtration Rate 57.0 mL/min (>60) Glucose Level 96 mg/dL (74-106) Calcium Level 8.3 mg/dL (8.6-10.2) L Total Bilirubin 2.6 mg/dL (0.0-1.2) H Direct Bilirubin 1.2 mg/dL (0.1-0.3) H Aspartate Amino Transf (AST/SGOT) 108 U/L (5-40) H Alanine Aminotransferase (ALT/SGPT) 29 U/L (3-41) Alkaline Phosphatase 173 U/L (40-129) H Total Protein 6.2 g/dL (6.6-8.7) L Albumin 1.5 g/dL (3.5-5.2) L Globulin 4.7 g/dL Albumin/Globulin Ratio 0.3 (1.0-2.7) L Height (Feet): 6 Height (Inches): 2.00 Weight (Pounds): 232 General Appearance: no apparent distress, alert Cardiovascular: normal rate Respiratory/Chest: other - 2LNC Abdominal Exam: ascites Bren Palacios N.PSong October 01, 2016 11:05
[2016-10-01 12:39] VITALS: BP 97/57
[2016-10-01 16:03] VITALS: BP 132/72
--- NOTE | 2016-10-01 19:56 | General Progress Note ---
Assessment/Plan Assessment/Plan IMPRESSION: 1. Thrombocytopenia secondary to alcoholic liver cirrhosis. ok to continue asa, would hold off on coumadin and/or heparin sq. Also patient has DIC as haptoglobin is <29, monitor closely, given sepsis. Has a hx of hepatitis C and 5L removed via para on admission 2. Alcoholic liver cirrhosis. 3. Anemia of bleeding diathesis from hip 4. 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 5. Acute left hip periprosthetic fracture s/p repair 6. History of alcohol abuse. 7. Hepatitis C. 8. Psychosis. 9. Failure to thrive. RECOMMENDATIONS: -. DIC test is ++ thus will monitor closely for fibrinogen and treat symptomatically if <100 -. Prior admission and heme workup has been reviewed -. Ok to continue asa, would hold off on coumadin and/or heparin sq -. Watch counts, transfuse to hgb >8 (especially in light of bleeding diathesis and cirrhosis) -. Watch coagulopathy. -. Gi service followup -. Hep C rx as outpatient -. Vitamin K prn -. Appreciate consultation! Subjective Constitutional: Reports: no symptoms HEENT: Reports: no symptoms Cardiovascular: Reports: no symptoms Respiratory: Reports: no symptoms Gastrointestinal/Abdominal: Reports: poor appetite Genitourinary: Reports: no symptoms Neurologic/Psychiatric: Reports: no symptoms Endocrine: Reports: no symptoms Hematologic/Lymphatic: Reports: anemia Allergies: Coded Allergies: No Known Allergies (Unverified , 09/06/16) Subjective Monitoring counts closely, plt slightly lower Objective Last 24 Hour Vital Signs Date Time Temp Pulse Resp B/P Pulse Ox O2 Delivery O2 Flow Rate FiO2 10/01/16 16:49 Nasal Cannula 2.0 28 10/01/16 16:49 100 Nasal Cannula 2.0 28 10/01/16 16:03 96.8 90 20 132/72 100 Nasal Cannula 2.0 10/01/16 12:39 97.5 91 18 97/57 100 Nasal Cannula 2.0 10/01/16 12:39 97.5 91 18 97/57 100 Nasal Cannula 2.0 10/01/16 08:38 98.2 96 18 92/60 100 Nasal Cannula 2.0 10/01/16 07:08 97.9 10/01/16 04:00 97.9 99 18 133/94 100 Nasal Cannula 2.0 10/01/16 00:00 97.5 87 18 114/75 100 Nasal Cannula 2.0 09/30/16 20:01 96.8 95 20 141/86 100 Nasal Cannula 2.0 Intake and Output 09/30/16 10/01/16 19:00 07:00 Intake Total 480 ml 260 ml Output Total 350 ml Balance 480 ml -90 ml Intake Oral 480 ml 260 ml Output Urine Total 350 ml # Voids 3 # Bowel Movements 2 Laboratory Tests 10/01/16 05:00: White Blood Count 3.5L, Red Blood Count 2.51L, Hemoglobin 8.4L, Hematocrit 26.7L , Mean Corpuscular Volume 106H, Mean Corpuscular Hemoglobin 33.5H, Mean Corpuscular Hemoglobin Concent 31.5L, Red Cell Distribution Width 21.1H, Platelet Count 53L, Mean Platelet Volume 6.1L, Neutrophils (%) (Auto) , Lymphocytes (%) (Auto) , Monocytes (%) (Auto) , Eosinophils (%) (Auto) , Basophils (%) (Auto) , Differential Total Cells Counted 100, Neutrophils % ( Manual) 73, Lymphocytes % (Manual) 15L, Monocytes % (Manual) 8, Eosinophils % ( Manual) 3, Basophils % (Manual) 1, Band Neutrophils 0, Platelet Estimate DecreasedL, Platelet Morphology Normal, Hypochromasia 2+, Anisocytosis 3+, Macrocytosis 1+, Sodium Level 134L, Potassium Level 5.1H, Chloride Level 100, Carbon Dioxide Level 21, Anion Gap 13, Blood Urea Nitrogen 37H, Creatinine 1.5H , Estimat Glomerular Filtration Rate 57.0, Glucose Level 96, Calcium Level 8.3L , Total Bilirubin 2.6H, Direct Bilirubin 1.2H, Aspartate Amino Transf (AST/SGOT ) 108H, Alanine Aminotransferase (ALT/SGPT) 29, Alkaline Phosphatase 173H, Total Protein 6.2L, Albumin 1.5L, Globulin 4.7, Albumin/Globulin Ratio 0.3L Height (Feet): 6 Height (Inches): 2.00 Weight (Pounds): 232 General Appearance: no apparent distress EENT: normal ENT inspection Neck: normal inspection Cardiovascular: normal rate Respiratory/Chest: normal breath sounds Abdomen: non tender Extremities: non-tender Edema: no edema noted Leg (L), no edema noted Leg (R) Edema: mild edema Neurologic: alert Skin: warm/dry Kleynberg,Darren L. October 01, 2016 19:56
[2016-10-01 20:00] VITALS: BP 113/65
[2016-10-01] MEDS: Tamsulosin 0.4mg cap ORAL SCH (21:24)
--- NOTE | 2016-10-01 22:42 | Pulmonology Progress Note ---
Assessment/Plan Problems: (1) Acute hepatic encephalopathy (2) EDITH (acute kidney injury) (3) End-stage liver disease (4) Coagulopathy (5) Elevated CEA (6) Anemia Assessment/Plan f/u ammonia level h/h stable endoscopy showed esophageal varrices increased CEA and shazia fetoprotein showing some kind of malignancy consider DNR and comfort care pt satisfies Medicare criteria for hospice cane Subjective ROS Limited/Unobtainable: No Constitutional: Reports: no symptoms Allergies: Coded Allergies: No Known Allergies (Unverified , 09/06/16) Objective Last 24 Hour Vital Signs Date Time Temp Pulse Resp B/P Pulse Ox O2 Delivery O2 Flow Rate FiO2 10/01/16 20:00 97.5 89 20 113/65 98 Nasal Cannula 2.0 10/01/16 16:49 Nasal Cannula 2.0 28 10/01/16 16:49 100 Nasal Cannula 2.0 28 10/01/16 16:03 96.8 90 20 132/72 100 Nasal Cannula 2.0 10/01/16 12:39 97.5 91 18 97/57 100 Nasal Cannula 2.0 10/01/16 12:39 97.5 91 18 97/57 100 Nasal Cannula 2.0 10/01/16 08:38 98.2 96 18 92/60 100 Nasal Cannula 2.0 10/01/16 07:08 97.9 10/01/16 04:00 97.9 99 18 133/94 100 Nasal Cannula 2.0 10/01/16 00:00 97.5 87 18 114/75 100 Nasal Cannula 2.0 Intake and Output 09/30/16 10/01/16 19:00 07:00 Intake Total 480 ml 260 ml Output Total 350 ml Balance 480 ml -90 ml Intake Oral 480 ml 260 ml Output Urine Total 350 ml # Voids 3 # Bowel Movements 2 General Appearance: WD/WN HEENT: normocephalic, atraumatic Respiratory/Chest: chest wall non-tender, lungs clear Cardiovascular: normal peripheral pulses, normal rate Abdomen: soft, non tender Genitourinary: normal external genitalia Neurologic/Psychiatric: special effects specialist II-XII grossly normal Lymphatic: no groin adenopathy Musculoskeletal: normal muscle bulk Laboratory Tests 10/01/16 05:00: White Blood Count 3.5L, Red Blood Count 2.51L, Hemoglobin 8.4L, Hematocrit 26.7L , Mean Corpuscular Volume 106H, Mean Corpuscular Hemoglobin 33.5H, Mean Corpuscular Hemoglobin Concent 31.5L, Red Cell Distribution Width 21.1H, Platelet Count 53L, Mean Platelet Volume 6.1L, Neutrophils (%) (Auto) , Lymphocytes (%) (Auto) , Monocytes (%) (Auto) , Eosinophils (%) (Auto) , Basophils (%) (Auto) , Differential Total Cells Counted 100, Neutrophils % ( Manual) 73, Lymphocytes % (Manual) 15L, Monocytes % (Manual) 8, Eosinophils % ( Manual) 3, Basophils % (Manual) 1, Band Neutrophils 0, Platelet Estimate DecreasedL, Platelet Morphology Normal, Hypochromasia 2+, Anisocytosis 3+, Macrocytosis 1+, Sodium Level 134L, Potassium Level 5.1H, Chloride Level 100, Carbon Dioxide Level 21, Anion Gap 13, Blood Urea Nitrogen 37H, Creatinine 1.5H , Estimat Glomerular Filtration Rate 57.0, Glucose Level 96, Calcium Level 8.3L , Total Bilirubin 2.6H, Direct Bilirubin 1.2H, Aspartate Amino Transf (AST/SGOT ) 108H, Alanine Aminotransferase (ALT/SGPT) 29, Alkaline Phosphatase 173H, Total Protein 6.2L, Albumin 1.5L, Globulin 4.7, Albumin/Globulin Ratio 0.3L Current Medications Medications (Trade) Dose Ordered Sig/Carolynn Route PRN Reason Start Time Stop Time Status Last Admin Dose Admin Acetaminophen (Tylenol) 650 mg Q4H PRN ORAL Mild Pain/Temp > 100.5 09/28/16 23:00 10/28/16 22:59 Acetaminophen/ Hydrocodone Bitart ([place] 5/325) 1 tab Q4H PRN ORAL Moderate Pain (Pain Scale 4-6) 09/28/16 23:00 10/05/16 22:59 10/01/16 21:25 Ascorbic Acid (Vitamin C) 500 mg DAILY ORAL 09/29/16 09:00 10/29/16 08:59 10/01/16 10:10 Aspirin (Ecotrin) 81 mg DAILY ORAL 09/29/16 09:00 10/29/16 08:59 10/01/16 10:10 Bisacodyl (Dulcolax) 10 mg DAILYPRN PRN RECTAL Constipation 09/29/16 19:00 10/29/16 18:59 Docusate Sodium (Colace) 100 mg TWICE A DAY ORAL 09/29/16 09:00 10/29/16 08:59 10/01/16 17:26 Ergocalciferol (Drisdol) 50,000 intlu MoTh ORAL 09/30/16 09:00 10/30/16 08:59 09/30/16 08:17 Finasteride (Proscar) 5 mg DAILY ORAL 09/29/16 14:00 10/29/16 13:59 10/01/16 10:10 Lactulose (Cephulac) 30 gm BID ORAL 09/29/16 09:00 10/29/16 08:59 10/01/16 17:26 Midodrine (Pro-Amatine) 2.5 mg THREE TIMES A DAY ORAL 09/30/16 13:00 10/30/16 12:59 10/01/16 17:26 Nystatin (Nystop Powder) 1 applic THREE TIMES A DAY TOPIC 09/30/16 18:00 10/30/16 17:59 10/01/16 17:27 Pantoprazole (Protonix) 40 mg EVERY 12 HOURS ORAL 09/30/16 21:00 10/30/16 20:59 10/01/16 21:23 Rifaximin (Xifaxan) 550 mg TWICE A DAY ORAL 09/29/16 09:00 10/06/16 08:59 10/01/16 17:26 Sodium Chloride (NS) 550 ml @ 0 mls/hr Q0M PRN IV PRN SBP < 95 09/28/16 21:30 10/28/16 21:29 Tamsulosin HCl (Flomax) 0.4 mg BEDTIME ORAL 09/29/16 21:00 10/29/16 20:59 10/01/16 21:24 CIRA KOCH October 01, 2016 22:42
[2016-10-02] VITALS (7 sets, daily range): BP systolic 97–135; BP diastolic 62–75
[2016-10-02] MEDS: Norco 5mg/325mg tab ORAL PRN ×3 (02:52→15:14)
[2016-10-02 06:39] LABS: MEAN CORPUSCULAR HEMOGLOBIN 33.3 PG (27.0-31.0); MEAN CORPUSCULAR HGB CONC 31.3 G/DL (32.0-36.0); MEAN CORPUSCULAR VOLUME 106 FL (80-99); MEAN PLATELET VOLUME 6.2 FL (6.5-10.1); PLATELET COUNT 44 K/UL (150-450); RED BLOOD COUNT 2.39 M/UL (4.70-6.10); RED CELL DISTRIBUTION WIDTH 20.8 % (11.6-14.8); WHITE BLOOD COUNT 3.6 K/UL (4.8-10.8)
[2016-10-02 07:20] LABS: ALBUMIN/GLOBULIN RATIO 0.3 (1.0-2.7); CALCIUM 8.1 mg/dL (8.6-10.2); CREATININE 1.5 mg/dL (0.7-1.2); POTASSIUM 3.6 mEQ/L (3.4-4.9)
[2016-10-02 07:35] LABS: BILIRUBIN,DIRECT 1.2 mg/dL (0.1-0.3)
[2016-10-02] MEDS: Lactulose 20gm/30ml UDC ORAL SCH ×2 (08:42→18:05)
[2016-10-02] MEDS: Rifaximin 550mg tab ORAL SCH ×2 (08:43→18:05)
[2016-10-02] MEDS: Docusate 100mg cap ORAL SCH ×2 (08:43→18:05)
[2016-10-02] MEDS: Ascorbic Acid 500mg tab ORAL SCH (08:43)
[2016-10-02] MEDS: Aspirin EC 81mg tab ORAL SCH (08:43)
--- NOTE | 2016-10-02 08:48 | General Progress Note ---
Assessment/Plan Assessment/Plan (1) Dementia (2) S/p Mechanical fall (3) Left hip Fracture (4) Left hip pain (5) S/p Left hip hemiarthroplasty Patient will be continued on Carpenter as needed. Parameters continued. D/w Dr. Donald and he concurred. Subjective Date patient seen: October 02, 2016 Time patient seen: 07:00 - am Allergies: Coded Allergies: No Known Allergies (Unverified , 09/06/16) Subjective REVIEW OF SYSTEMS: Complaining of left hip pain SUBJECTIVE: Pain is unchanged and is worse with positional changes. Nurse is in room and has administered the Carpenter. Objective Last 24 Hour Vital Signs Date Time Temp Pulse Resp B/P Pulse Ox O2 Delivery O2 Flow Rate FiO2 10/02/16 08:27 97.2 91 17 121/67 100 Nasal Cannula 2.0 10/02/16 04:00 97.7 93 18 97/62 Nasal Cannula 2.0 10/02/16 03:51 97.7 10/02/16 00:00 97.7 85 20 113/75 Nasal Cannula 2.0 10/01/16 20:00 97.5 89 20 113/65 98 Nasal Cannula 2.0 10/01/16 16:49 Nasal Cannula 2.0 28 10/01/16 16:49 100 Nasal Cannula 2.0 28 10/01/16 16:03 96.8 90 20 132/72 100 Nasal Cannula 2.0 10/01/16 12:39 97.5 91 18 97/57 100 Nasal Cannula 2.0 10/01/16 12:39 97.5 91 18 97/57 100 Nasal Cannula 2.0 Intake and Output 10/01/16 10/02/16 19:00 07:00 Intake Total 840 ml 600 ml Output Total 240 ml 250 ml Balance 600 ml 350 ml Intake Oral 840 ml 600 ml Output Urine Total 240 ml 250 ml # Bowel Movements 1 Laboratory Tests 10/02/16 04:00: White Blood Count 3.6L, Red Blood Count 2.39L, Hemoglobin 8.0L, Hematocrit 25.5L , Mean Corpuscular Volume 106H, Mean Corpuscular Hemoglobin 33.3H, Mean Corpuscular Hemoglobin Concent 31.3L, Red Cell Distribution Width 20.8H, Platelet Count 44L, Mean Platelet Volume 6.2L, Neutrophils (%) (Auto) , Lymphocytes (%) (Auto) , Monocytes (%) (Auto) , Eosinophils (%) (Auto) , Basophils (%) (Auto) , Neutrophils % (Manual) [Pending], Lymphocytes % (Manual) [Pending], Platelet Estimate [Pending], Platelet Morphology [Pending], Sodium Level 133L, Potassium Level 3.6, Chloride Level 99, Carbon Dioxide Level 22, Anion Gap 12, Blood Urea Nitrogen 34H, Creatinine 1.5H, Estimat Glomerular Filtration Rate 57.0, Glucose Level 121H, Calcium Level 8.1L, Total Bilirubin 2.4H, Direct Bilirubin 1.2H, Aspartate Amino Transf (AST/SGOT) 105H, Alanine Aminotransferase (ALT/SGPT) 31, Alkaline Phosphatase 144H, Total Protein 6.0L, Albumin 1.5L, Globulin 4.5, Albumin/Globulin Ratio 0.3L Height (Feet): 6 Height (Inches): 2.00 Weight (Pounds): 232 Objective GENERAL: Alert and awake. HEENT: PERRLA. NECK: Range of motion is full in all directions. No tenderness to paracervical muscles. LUNGS: Clear. HEART: Regular. ABDOMEN: Distended. BACK: Range of motion is decreased in flexion and extension. EXTREMITIES: Lower extremity motion is decreased over the left hip. Tenderness to palpation. SLOAN PACKER October 02, 2016 08:48
[2016-10-02] MEDS: Nystatin Powder 100,000 units/gm 15gm TOPIC SCH ×3 (09:02→18:05)
[2016-10-02] MEDS: Tamsulosin 0.4mg cap ORAL SCH ×2 (09:02→18:05)
--- NOTE | 2016-10-02 09:20 | Urology Progress Note ---
Assessment/Plan Assessment/Plan 1. Urinary retention. 2. Benign prostatic hypertrophy. 3. Possible neurogenic bladder. 4. Hematuria. 5. Pyuria. 6. Proteinuria. 7. Renal insufficiency which is acute on chronic. weeks back indwelling increase flomax to BID, proscar resumed monitor renal fxn repeat voiding trial later Subjective Allergies: Coded Allergies: No Known Allergies (Unverified , 09/06/16) Subjective all noted, weeks reinserted Objective Last 24 Hour Vital Signs Date Time Temp Pulse Resp B/P Pulse Ox O2 Delivery O2 Flow Rate FiO2 10/02/16 08:27 97.2 91 17 121/67 100 Nasal Cannula 2.0 10/02/16 04:00 97.7 93 18 97/62 Nasal Cannula 2.0 10/02/16 03:51 97.7 10/02/16 00:00 97.7 85 20 113/75 Nasal Cannula 2.0 10/01/16 20:00 97.5 89 20 113/65 98 Nasal Cannula 2.0 10/01/16 16:49 Nasal Cannula 2.0 28 10/01/16 16:49 100 Nasal Cannula 2.0 28 10/01/16 16:03 96.8 90 20 132/72 100 Nasal Cannula 2.0 10/01/16 12:39 97.5 91 18 97/57 100 Nasal Cannula 2.0 10/01/16 12:39 97.5 91 18 97/57 100 Nasal Cannula 2.0 Intake and Output 10/01/16 10/02/16 19:00 07:00 Intake Total 840 ml 600 ml Output Total 240 ml 250 ml Balance 600 ml 350 ml Intake Oral 840 ml 600 ml Output Urine Total 240 ml 250 ml # Bowel Movements 1 Microbiology Date/Time Source Procedure Growth Status 09/25/16 21:05 Blood Blood Culture - Final NO GROWTH AFTER 5 DAYS Complete 09/24/16 02:35 Nasal Nares MRSA Culture - Final NO METHICILLIN RESISTANT STAPH AUREUS... Complete 09/25/16 21:00 Urine,Clean Catch Urine Culture - Final NO GROWTH AFTER 48 HOURS Complete 09/26/16 14:15 Abdominal Fluid Gram Stain - Final Complete 09/26/16 14:15 Abdominal Fluid Body Fluid Culture - Final NO GROWTH Complete Current Medications Medications (Trade) Dose Ordered Sig/Carolynn Route PRN Reason Start Time Stop Time Status Last Admin Dose Admin Acetaminophen (Tylenol) 650 mg Q4H PRN ORAL Mild Pain/Temp > 100.5 09/28/16 23:00 10/28/16 22:59 Acetaminophen/ Hydrocodone Bitart ([place] 5/325) 1 tab Q4H PRN ORAL Moderate Pain (Pain Scale 4-6) 09/28/16 23:00 10/05/16 22:59 10/02/16 08:43 Ascorbic Acid (Vitamin C) 500 mg DAILY ORAL 09/29/16 09:00 10/29/16 08:59 10/02/16 08:43 Aspirin (Ecotrin) 81 mg DAILY ORAL 09/29/16 09:00 10/29/16 08:59 10/02/16 08:43 Bisacodyl (Dulcolax) 10 mg DAILYPRN PRN RECTAL Constipation 09/29/16 19:00 10/29/16 18:59 Docusate Sodium (Colace) 100 mg TWICE A DAY ORAL 09/29/16 09:00 10/29/16 08:59 10/02/16 08:43 Ergocalciferol (Drisdol) 50,000 intlu MoTh ORAL 09/30/16 09:00 10/30/16 08:59 09/30/16 08:17 Finasteride (Proscar) 5 mg DAILY ORAL 09/29/16 14:00 10/29/16 13:59 10/02/16 08:42 Lactulose (Cephulac) 30 gm BID ORAL 09/29/16 09:00 10/29/16 08:59 10/02/16 08:42 Midodrine (Pro-Amatine) 2.5 mg THREE TIMES A DAY ORAL 09/30/16 13:00 10/30/16 12:59 10/02/16 08:43 Nystatin (Nystop Powder) 1 applic THREE TIMES A DAY TOPIC 09/30/16 18:00 10/30/16 17:59 10/02/16 09:02 Pantoprazole (Protonix) 40 mg EVERY 12 HOURS ORAL 09/30/16 21:00 10/30/16 20:59 10/02/16 08:43 Rifaximin (Xifaxan) 550 mg TWICE A DAY ORAL 09/29/16 09:00 10/06/16 08:59 10/02/16 08:43 Sodium Chloride (NS) 550 ml @ 0 mls/hr Q0M PRN IV PRN SBP < 95 09/28/16 21:30 10/28/16 21:29 Tamsulosin HCl (Flomax) 0.4 mg BID ORAL 10/02/16 09:00 11/01/16 08:59 10/02/16 09:02 Laboratory Tests 10/02/16 04:00: White Blood Count 3.6L, Red Blood Count 2.39L, Hemoglobin 8.0L, Hematocrit 25.5L , Mean Corpuscular Volume 106H, Mean Corpuscular Hemoglobin 33.3H, Mean Corpuscular Hemoglobin Concent 31.3L, Red Cell Distribution Width 20.8H, Platelet Count 44L, Mean Platelet Volume 6.2L, Neutrophils (%) (Auto) , Lymphocytes (%) (Auto) , Monocytes (%) (Auto) , Eosinophils (%) (Auto) , Basophils (%) (Auto) , Neutrophils % (Manual) [Pending], Lymphocytes % (Manual) [Pending], Platelet Estimate [Pending], Platelet Morphology [Pending], Sodium Level 133L, Potassium Level 3.6, Chloride Level 99, Carbon Dioxide Level 22, Anion Gap 12, Blood Urea Nitrogen 34H, Creatinine 1.5H, Estimat Glomerular Filtration Rate 57.0, Glucose Level 121H, Calcium Level 8.1L, Total Bilirubin 2.4H, Direct Bilirubin 1.2H, Aspartate Amino Transf (AST/SGOT) 105H, Alanine Aminotransferase (ALT/SGPT) 31, Alkaline Phosphatase 144H, Total Protein 6.0L, Albumin 1.5L, Globulin 4.5, Albumin/Globulin Ratio 0.3L Height (Feet): 6 Height (Inches): 2.00 Weight (Pounds): 232 Objective exam stable MESHA TRUONG October 02, 2016 09:20
[2016-10-02 10:17] LABS: ANISOCYTOSIS 2+; BAND NEUTROPHILS % (MANUAL) 0 % (0-8); BASOPHILS % (MANUAL) 0 % (0-2); EOSINOPHILS % (MANUAL) 2 % (0-3); HYPOCHROMASIA 3+; LYMPHOCYTES % (MANUAL) 5 % (20-45); MACROCYTES 1+; NEUTROPHILS % (MANUAL) 86 % (45-75); NUCLEATED RED BLOOD CELLS 1 /100 WBC; PLATELET ESTIMATE DECREASED; PLATELET MORPHOLOGY NORMAL; TOTAL CELLS COUNTED 100
--- NOTE | 2016-10-02 10:28 | GI Progress Note ---
Assessment/Plan Problems: (1) Acute hepatic encephalopathy ICD Codes: K72.00 - Acute and subacute hepatic failure without coma SNOMED: 95373560 (2) LFT elevation ICD Codes: R94.5 - Abnormal results of liver function studies SNOMED: 067494656 (3) History of alcoholism ICD Codes: F10.21 - Alcohol dependence, in remission SNOMED: 402168381 (4) Elevated CEA ICD Codes: R97.0 - Elevated carcinoembryonic antigen [CEA] SNOMED: 50073967, 117360688 (5) Anemia ICD Codes: D64.9 - Anemia, unspecified SNOMED: 052671425 Qualifiers: Qualified Codes: D64.9 - Anemia, unspecified (6) Dehydration ICD Codes: E86.0 - Dehydration SNOMED: 34149945 Status: unchanged Status Narrative Discussed with Dr. Bojorquez. Assessment/Plan S/P EGD - FINDINGS: 1. Severe portal hypertensive gastropathy. Status post biopsy. >> unremarkable 2. Distal esophageal varices grade I/II without any stigmata. ok for DC per GI standpoint >> recommend outpatient colonoscopy Hep C positive elevated CEA >> 9.6 s/p paracentesis >> 5L yield >> SBP negative ammonia WNL >> cont lactulose + Xifaxan stable H&H OB stool uncollected ppi dc propranolol fu labs PT evaluation Subjective Subjective wants to get up abdominal distention Objective Last 24 Hour Vital Signs Date Time Temp Pulse Resp B/P Pulse Ox O2 Delivery O2 Flow Rate FiO2 10/02/16 09:42 97.2 10/02/16 08:27 97.2 91 17 121/67 100 Nasal Cannula 2.0 10/02/16 04:00 97.7 93 18 97/62 Nasal Cannula 2.0 10/02/16 00:00 97.7 85 20 113/75 Nasal Cannula 2.0 10/01/16 20:00 97.5 89 20 113/65 98 Nasal Cannula 2.0 10/01/16 16:49 Nasal Cannula 2.0 28 10/01/16 16:49 100 Nasal Cannula 2.0 28 10/01/16 16:03 96.8 90 20 132/72 100 Nasal Cannula 2.0 10/01/16 12:39 97.5 91 18 97/57 100 Nasal Cannula 2.0 10/01/16 12:39 97.5 91 18 97/57 100 Nasal Cannula 2.0 Intake and Output 10/01/16 10/02/16 19:00 07:00 Intake Total 840 ml 600 ml Output Total 240 ml 250 ml Balance 600 ml 350 ml Intake Oral 840 ml 600 ml Output Urine Total 240 ml 250 ml # Bowel Movements 1 Laboratory Tests Test 10/02/16 04:00 White Blood Count 3.6 K/UL (4.8-10.8) L Red Blood Count 2.39 M/UL (4.70-6.10) L Hemoglobin 8.0 G/DL (14.2-18.0) L Hematocrit 25.5 % (42.0-52.0) L Mean Corpuscular Volume 106 FL (80-99) H Mean Corpuscular Hemoglobin 33.3 PG (27.0-31.0) H Mean Corpuscular Hemoglobin Concent 31.3 G/DL (32.0-36.0) L Red Cell Distribution Width 20.8 % (11.6-14.8) H Platelet Count 44 K/UL (150-450) L Mean Platelet Volume 6.2 FL (6.5-10.1) L Neutrophils (%) (Auto) % (45.0-75.0) Lymphocytes (%) (Auto) % (20.0-45.0) Monocytes (%) (Auto) % (1.0-10.0) Eosinophils (%) (Auto) % (0.0-3.0) Basophils (%) (Auto) % (0.0-2.0) Differential Total Cells Counted 100 Neutrophils % (Manual) 86 % (45-75) H Lymphocytes % (Manual) 5 % (20-45) L Monocytes % (Manual) 7 % (1-10) Eosinophils % (Manual) 2 % (0-3) Basophils % (Manual) 0 % (0-2) Band Neutrophils 0 % (0-8) Nucleated Red Blood Cells 1 /100 WBC Platelet Estimate Decreased L Platelet Morphology Normal Hypochromasia 3+ Anisocytosis 2+ Macrocytosis 1+ Sodium Level 133 mEQ/L (135-145) L Potassium Level 3.6 mEQ/L (3.4-4.9) Chloride Level 99 mEQ/L (98-107) Carbon Dioxide Level 22 mEQ/L (20-30) Anion Gap 12 (5-15) Blood Urea Nitrogen 34 mg/dL (7-23) H Creatinine 1.5 mg/dL (0.7-1.2) H Estimat Glomerular Filtration Rate 57.0 mL/min (>60) Glucose Level 121 mg/dL (74-106) H Calcium Level 8.1 mg/dL (8.6-10.2) L Total Bilirubin 2.4 mg/dL (0.0-1.2) H Direct Bilirubin 1.2 mg/dL (0.1-0.3) H Aspartate Amino Transf (AST/SGOT) 105 U/L (5-40) H Alanine Aminotransferase (ALT/SGPT) 31 U/L (3-41) Alkaline Phosphatase 144 U/L (40-129) H Total Protein 6.0 g/dL (6.6-8.7) L Albumin 1.5 g/dL (3.5-5.2) L Globulin 4.5 g/dL Albumin/Globulin Ratio 0.3 (1.0-2.7) L Height (Feet): 6 Height (Inches): 2.00 Weight (Pounds): 232 General Appearance: no apparent distress, alert Cardiovascular: normal rate Respiratory/Chest: normal breath sounds Abdominal Exam: distended, ascites Bren Palacios N.P. October 02, 2016 10:28
--- NOTE | 2016-10-02 11:58 | General Progress Note ---
Assessment/Plan Status: stable Status Narrative Cr 1.5 Assessment/Plan status; Acute renal failure- Severe Anemia HyperKalemia- resolved Dehydration Proteinuria UTI High INR others: 1. s/p Status post mechanical fall. 2. Left periprosthetic femoral fracture. 3. Alcoholic liver cirrhosis. 4. s/p Elevated transaminase. 5. 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 6. Elevated tumor markers (CEA, AFP/alpha-fetoprotein). 7. Acute hepatic encephalopathy. 8. Hypertension. 9. Dementia. 10. Psychosis. 11. History of hemiarthroplasty, left hip, recent. 12. Hepatitis C. 13. History of alcohol abuse. 14. Anemia of chronic disease. 15. Thrombocytopenia, secondary to alcohol abuse. Plan; Transfuse as needed down dose Midodrine- hold mind altering meds- antibiotics - avoid nephrotoxics urine studies monitor renal parameters Tap Ascitis PRN per orders Subjective ROS Limited/Unobtainable: No Constitutional: Reports: malaise Allergies: Coded Allergies: No Known Allergies (Unverified , 09/06/16) Objective Last 24 Hour Vital Signs Date Time Temp Pulse Resp B/P Pulse Ox O2 Delivery O2 Flow Rate FiO2 10/02/16 09:42 97.2 10/02/16 08:27 97.2 91 17 121/67 100 Nasal Cannula 2.0 10/02/16 04:00 97.7 93 18 97/62 Nasal Cannula 2.0 10/02/16 00:00 97.7 85 20 113/75 Nasal Cannula 2.0 10/01/16 20:00 97.5 89 20 113/65 98 Nasal Cannula 2.0 10/01/16 16:49 Nasal Cannula 2.0 28 10/01/16 16:49 100 Nasal Cannula 2.0 28 10/01/16 16:03 96.8 90 20 132/72 100 Nasal Cannula 2.0 10/01/16 12:39 97.5 91 18 97/57 100 Nasal Cannula 2.0 10/01/16 12:39 97.5 91 18 97/57 100 Nasal Cannula 2.0 Intake and Output 10/01/16 10/02/16 19:00 07:00 Intake Total 840 ml 600 ml Output Total 240 ml 250 ml Balance 600 ml 350 ml Intake Oral 840 ml 600 ml Output Urine Total 240 ml 250 ml # Bowel Movements 1 Laboratory Tests 10/02/16 04:00: White Blood Count 3.6L, Red Blood Count 2.39L, Hemoglobin 8.0L, Hematocrit 25.5L , Mean Corpuscular Volume 106H, Mean Corpuscular Hemoglobin 33.3H, Mean Corpuscular Hemoglobin Concent 31.3L, Red Cell Distribution Width 20.8H, Platelet Count 44L, Mean Platelet Volume 6.2L, Neutrophils (%) (Auto) , Lymphocytes (%) (Auto) , Monocytes (%) (Auto) , Eosinophils (%) (Auto) , Basophils (%) (Auto) , Differential Total Cells Counted 100, Neutrophils % ( Manual) 86H, Lymphocytes % (Manual) 5L, Monocytes % (Manual) 7, Eosinophils % ( Manual) 2, Basophils % (Manual) 0, Band Neutrophils 0, Nucleated Red Blood Cells 1, Platelet Estimate DecreasedL, Platelet Morphology Normal, Hypochromasia 3+, Anisocytosis 2+, Macrocytosis 1+, Sodium Level 133L, Potassium Level 3.6, Chloride Level 99, Carbon Dioxide Level 22, Anion Gap 12, Blood Urea Nitrogen 34H, Creatinine 1.5H, Estimat Glomerular Filtration Rate 57.0, Glucose Level 121H, Calcium Level 8.1L, Total Bilirubin 2.4H, Direct Bilirubin 1.2H, Aspartate Amino Transf (AST/SGOT) 105H, Alanine Aminotransferase (ALT/SGPT) 31, Alkaline Phosphatase 144H, Total Protein 6.0L, Albumin 1.5L, Globulin 4.5, Albumin/Globulin Ratio 0.3L Height (Feet): 6 Height (Inches): 2.00 Weight (Pounds): 232 General Appearance: no apparent distress Objective no change in PE PRINCESS PALACIO October 02, 2016 11:58
--- NOTE | 2016-10-02 16:09 | General Progress Note ---
Assessment/Plan Assessment/Plan IMPRESSION: 1. Thrombocytopenia secondary to alcoholic liver cirrhosis and hepatitis C. hold asa, would hold off on coumadin and/or heparin sq given low platelets. Also patient has DIC as haptoglobin is <29, monitor closely, given sepsis. Has a hx of hepatitis C and 5L removed via para on admission 2. Alcoholic liver cirrhosis. 3. Anemia of bleeding diathesis from hip 4. 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 5. Acute left hip periprosthetic fracture s/p repair 6. History of alcohol abuse. 7. Hepatitis C. 8. Psychosis. 9. Failure to thrive. RECOMMENDATIONS: -. Monitor closely for fibrinogen and treat symptomatically if <100 -. Prior admission and heme workup has been reviewed -. Ok to continue asa, would hold off on coumadin and/or heparin sq -. Watch counts, transfuse to hgb >8 (especially in light of bleeding diathesis and cirrhosis) -. Watch coagulopathy. -. Gi service followup -. Hep C rx as outpatient -. Vitamin K prn -. Appreciate consultation! Subjective Constitutional: Reports: no symptoms HEENT: Reports: no symptoms Cardiovascular: Reports: no symptoms Respiratory: Reports: no symptoms Gastrointestinal/Abdominal: Reports: no symptoms Genitourinary: Reports: no symptoms Neurologic/Psychiatric: Reports: no symptoms Endocrine: Reports: no symptoms Hematologic/Lymphatic: Reports: anemia Allergies: Coded Allergies: No Known Allergies (Unverified , 09/06/16) Subjective Monitoring counts closely, no events overnight, plt count is lower Objective Last 24 Hour Vital Signs Date Time Temp Pulse Resp B/P Pulse Ox O2 Delivery O2 Flow Rate FiO2 10/02/16 12:24 97.2 91 17 121/67 100 Nasal Cannula 10/02/16 09:42 97.2 10/02/16 08:27 97.2 91 17 121/67 100 Nasal Cannula 2.0 10/02/16 04:00 97.7 93 18 97/62 Nasal Cannula 2.0 10/02/16 00:00 97.7 85 20 113/75 Nasal Cannula 2.0 10/01/16 20:00 97.5 89 20 113/65 98 Nasal Cannula 2.0 10/01/16 16:49 Nasal Cannula 2.0 28 10/01/16 16:49 100 Nasal Cannula 2.0 28 Intake and Output 10/01/16 10/02/16 19:00 07:00 Intake Total 840 ml 600 ml Output Total 240 ml 250 ml Balance 600 ml 350 ml Intake Oral 840 ml 600 ml Output Urine Total 240 ml 250 ml # Bowel Movements 1 Laboratory Tests 10/02/16 04:00: White Blood Count 3.6L, Red Blood Count 2.39L, Hemoglobin 8.0L, Hematocrit 25.5L , Mean Corpuscular Volume 106H, Mean Corpuscular Hemoglobin 33.3H, Mean Corpuscular Hemoglobin Concent 31.3L, Red Cell Distribution Width 20.8H, Platelet Count 44L, Mean Platelet Volume 6.2L, Neutrophils (%) (Auto) , Lymphocytes (%) (Auto) , Monocytes (%) (Auto) , Eosinophils (%) (Auto) , Basophils (%) (Auto) , Differential Total Cells Counted 100, Neutrophils % ( Manual) 86H, Lymphocytes % (Manual) 5L, Monocytes % (Manual) 7, Eosinophils % ( Manual) 2, Basophils % (Manual) 0, Band Neutrophils 0, Nucleated Red Blood Cells 1, Platelet Estimate DecreasedL, Platelet Morphology Normal, Hypochromasia 3+, Anisocytosis 2+, Macrocytosis 1+, Sodium Level 133L, Potassium Level 3.6, Chloride Level 99, Carbon Dioxide Level 22, Anion Gap 12, Blood Urea Nitrogen 34H, Creatinine 1.5H, Estimat Glomerular Filtration Rate 57.0, Glucose Level 121H, Calcium Level 8.1L, Total Bilirubin 2.4H, Direct Bilirubin 1.2H, Aspartate Amino Transf (AST/SGOT) 105H, Alanine Aminotransferase (ALT/SGPT) 31, Alkaline Phosphatase 144H, Total Protein 6.0L, Albumin 1.5L, Globulin 4.5, Albumin/Globulin Ratio 0.3L Height (Feet): 6 Height (Inches): 2.00 Weight (Pounds): 232 General Appearance: no apparent distress EENT: TMs normal Neck: normal alignment Cardiovascular: regular rhythm Respiratory/Chest: lungs clear Abdomen: no organomegaly Extremities: normal inspection Edema: mild edema Neurologic: alert Skin: warm/dry Darren Snyder October 02, 2016 16:09
--- NOTE | 2016-10-02 21:39 | Infectious Diseases Prog Note ---
Assessment/Plan Assessment/Plan A: No evid of sepsis at this time SP Hypotension SP Paracentesis no evidence of SPB No evidence of surgical site infection at this time Hepatitis C antibody + HIV : neg Depression Hypotension due to bradycardia Dementia Alcohol abuse Anemia History of left hip surgery four months ago CT of the pelvis, left hip : hemiarthroplasty, fracture of intertrochanteric region of the femur, soft tissue swelling, hematoma, and ascites PLAN: Monitor the patient off of antibiotics Monitor CBC Monitor BMP. Monitor cultures of the blood and urine Subjective Constitutional: Denies: anorexia, chills, drenching sweats, fatigue, fever, no symptoms, other Allergies: Coded Allergies: No Known Allergies (Unverified , 09/06/16) Subjective Objective Vital Signs Last 24 Hour Vital Signs Date Time Temp Pulse Resp B/P Pulse Ox O2 Delivery O2 Flow Rate FiO2 10/02/16 19:41 97.2 89 15 103/72 100 Nasal Cannula 2.5 10/02/16 19:28 100 Nasal Cannula 2.0 28 10/02/16 19:28 Nasal Cannula 2.0 28 10/02/16 16:13 97.2 10/02/16 16:12 97.2 83 21 100/68 100 Nasal Cannula 10/02/16 12:24 97.2 91 17 121/67 100 Nasal Cannula 10/02/16 08:27 97.2 91 17 121/67 100 Nasal Cannula 2.0 10/02/16 04:00 97.7 93 18 97/62 Nasal Cannula 2.0 10/02/16 00:00 97.7 85 20 113/75 Nasal Cannula 2.0 Height (Feet): 6 Height (Inches): 2.00 Weight (Pounds): 232 HEENT: atraumatic Respiratory/Chest: lungs clear Cardiovascular: regular rhythm Abdomen: no organomegaly Laboratory Tests Test 10/02/16 04:00 White Blood Count 3.6 K/UL (4.8-10.8) L Red Blood Count 2.39 M/UL (4.70-6.10) L Hemoglobin 8.0 G/DL (14.2-18.0) L Hematocrit 25.5 % (42.0-52.0) L Mean Corpuscular Volume 106 FL (80-99) H Mean Corpuscular Hemoglobin 33.3 PG (27.0-31.0) H Mean Corpuscular Hemoglobin Concent 31.3 G/DL (32.0-36.0) L Red Cell Distribution Width 20.8 % (11.6-14.8) H Platelet Count 44 K/UL (150-450) L Mean Platelet Volume 6.2 FL (6.5-10.1) L Neutrophils (%) (Auto) % (45.0-75.0) Lymphocytes (%) (Auto) % (20.0-45.0) Monocytes (%) (Auto) % (1.0-10.0) Eosinophils (%) (Auto) % (0.0-3.0) Basophils (%) (Auto) % (0.0-2.0) Differential Total Cells Counted 100 Neutrophils % (Manual) 86 % (45-75) H Lymphocytes % (Manual) 5 % (20-45) L Monocytes % (Manual) 7 % (1-10) Eosinophils % (Manual) 2 % (0-3) Basophils % (Manual) 0 % (0-2) Band Neutrophils 0 % (0-8) Nucleated Red Blood Cells 1 /100 WBC Platelet Estimate Decreased L Platelet Morphology Normal Hypochromasia 3+ Anisocytosis 2+ Macrocytosis 1+ Sodium Level 133 mEQ/L (135-145) L Potassium Level 3.6 mEQ/L (3.4-4.9) Chloride Level 99 mEQ/L (98-107) Carbon Dioxide Level 22 mEQ/L (20-30) Anion Gap 12 (5-15) Blood Urea Nitrogen 34 mg/dL (7-23) H Creatinine 1.5 mg/dL (0.7-1.2) H Estimat Glomerular Filtration Rate 57.0 mL/min (>60) Glucose Level 121 mg/dL (74-106) H Calcium Level 8.1 mg/dL (8.6-10.2) L Total Bilirubin 2.4 mg/dL (0.0-1.2) H Direct Bilirubin 1.2 mg/dL (0.1-0.3) H Aspartate Amino Transf (AST/SGOT) 105 U/L (5-40) H Alanine Aminotransferase (ALT/SGPT) 31 U/L (3-41) Alkaline Phosphatase 144 U/L (40-129) H Total Protein 6.0 g/dL (6.6-8.7) L Albumin 1.5 g/dL (3.5-5.2) L Globulin 4.5 g/dL Albumin/Globulin Ratio 0.3 (1.0-2.7) L Current Medications Medications (Trade) Dose Ordered Sig/Carolynn Route PRN Reason Start Time Stop Time Status Last Admin Dose Admin Acetaminophen (Tylenol) 650 mg Q4H PRN ORAL Mild Pain/Temp > 100.5 09/28/16 23:00 10/28/16 22:59 Acetaminophen/ Hydrocodone Bitart ([place] 5/325) 1 tab Q4H PRN ORAL Moderate Pain (Pain Scale 4-6) 09/28/16 23:00 10/05/16 22:59 10/02/16 15:14 Ascorbic Acid (Vitamin C) 500 mg DAILY ORAL 09/29/16 09:00 10/29/16 08:59 10/02/16 08:43 Bisacodyl (Dulcolax) 10 mg DAILYPRN PRN RECTAL Constipation 09/29/16 19:00 10/29/16 18:59 Docusate Sodium (Colace) 100 mg TWICE A DAY ORAL 09/29/16 09:00 10/29/16 08:59 10/02/16 18:05 Ergocalciferol (Drisdol) 50,000 intlu MoTh ORAL 09/30/16 09:00 10/30/16 08:59 09/30/16 08:17 Finasteride (Proscar) 5 mg DAILY ORAL 09/29/16 14:00 10/29/16 13:59 10/02/16 08:42 Lactulose (Cephulac) 30 gm BID ORAL 09/29/16 09:00 10/29/16 08:59 10/02/16 18:05 Midodrine (Pro-Amatine) 2.5 mg THREE TIMES A DAY ORAL 09/30/16 13:00 10/30/16 12:59 10/02/16 18:05 Nystatin (Nystop Powder) 1 applic THREE TIMES A DAY TOPIC 09/30/16 18:00 10/30/16 17:59 10/02/16 18:05 Pantoprazole (Protonix) 40 mg EVERY 12 HOURS ORAL 09/30/16 21:00 10/30/16 20:59 10/02/16 21:02 Rifaximin (Xifaxan) 550 mg TWICE A DAY ORAL 09/29/16 09:00 10/06/16 08:59 10/02/16 18:05 Sodium Chloride (NS) 550 ml @ 0 mls/hr Q0M PRN IV PRN SBP < 95 09/28/16 21:30 10/28/16 21:29 Tamsulosin HCl (Flomax) 0.4 mg BID ORAL 10/02/16 09:00 11/01/16 08:59 10/02/16 18:05 CHAY DOMINGO M.D. October 02, 2016 21:39
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
--- NOTE | 2016-10-02 22:22 | Cardiology Progress Note ---
Assessment/Plan Assessment/Plan 1. Hx of junctional rhythm, responded to dopamine gtt, now in sinus rhythm, LVEF at 65%, continue hemodynamic observation, on midodrine. 2. Status post open reduction and internal fixation of left hip at [facility], not a candidate for DVT prophylaxis in view of end-stage liver disease 3. History of hypertension, now hypotensive on midodrine. 4. 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 Subjective Subjective No cardiac events. Objective Last 24 Hour Vital Signs Date Time Temp Pulse Resp B/P Pulse Ox O2 Delivery O2 Flow Rate FiO2 10/02/16 19:41 97.2 89 15 103/72 100 Nasal Cannula 2.5 10/02/16 19:28 100 Nasal Cannula 2.0 28 10/02/16 19:28 Nasal Cannula 2.0 28 10/02/16 16:13 97.2 10/02/16 16:12 97.2 83 21 100/68 100 Nasal Cannula 10/02/16 12:24 97.2 91 17 121/67 100 Nasal Cannula 10/02/16 08:27 97.2 91 17 121/67 100 Nasal Cannula 2.0 10/02/16 04:00 97.7 93 18 97/62 Nasal Cannula 2.0 10/02/16 00:00 97.7 85 20 113/75 Nasal Cannula 2.0 Intake and Output 10/01/16 10/02/16 19:00 07:00 Intake Total 840 ml 600 ml Output Total 240 ml 250 ml Balance 600 ml 350 ml Intake Oral 840 ml 600 ml Output Urine Total 240 ml 250 ml # Bowel Movements 1 2D Echo: LVEF 65%, Mild LVH, Grade I LVDD, Mod MR, RVSP 29 mmHg Laboratory Tests Test 10/02/16 04:00 White Blood Count 3.6 K/UL (4.8-10.8) L Red Blood Count 2.39 M/UL (4.70-6.10) L Hemoglobin 8.0 G/DL (14.2-18.0) L Hematocrit 25.5 % (42.0-52.0) L Mean Corpuscular Volume 106 FL (80-99) H Mean Corpuscular Hemoglobin 33.3 PG (27.0-31.0) H Mean Corpuscular Hemoglobin Concent 31.3 G/DL (32.0-36.0) L Red Cell Distribution Width 20.8 % (11.6-14.8) H Platelet Count 44 K/UL (150-450) L Mean Platelet Volume 6.2 FL (6.5-10.1) L Neutrophils (%) (Auto) % (45.0-75.0) Lymphocytes (%) (Auto) % (20.0-45.0) Monocytes (%) (Auto) % (1.0-10.0) Eosinophils (%) (Auto) % (0.0-3.0) Basophils (%) (Auto) % (0.0-2.0) Differential Total Cells Counted 100 Neutrophils % (Manual) 86 % (45-75) H Lymphocytes % (Manual) 5 % (20-45) L Monocytes % (Manual) 7 % (1-10) Eosinophils % (Manual) 2 % (0-3) Basophils % (Manual) 0 % (0-2) Band Neutrophils 0 % (0-8) Nucleated Red Blood Cells 1 /100 WBC Platelet Estimate Decreased L Platelet Morphology Normal Hypochromasia 3+ Anisocytosis 2+ Macrocytosis 1+ Sodium Level 133 mEQ/L (135-145) L Potassium Level 3.6 mEQ/L (3.4-4.9) Chloride Level 99 mEQ/L (98-107) Carbon Dioxide Level 22 mEQ/L (20-30) Anion Gap 12 (5-15) Blood Urea Nitrogen 34 mg/dL (7-23) H Creatinine 1.5 mg/dL (0.7-1.2) H Estimat Glomerular Filtration Rate 57.0 mL/min (>60) Glucose Level 121 mg/dL (74-106) H Calcium Level 8.1 mg/dL (8.6-10.2) L Total Bilirubin 2.4 mg/dL (0.0-1.2) H Direct Bilirubin 1.2 mg/dL (0.1-0.3) H Aspartate Amino Transf (AST/SGOT) 105 U/L (5-40) H Alanine Aminotransferase (ALT/SGPT) 31 U/L (3-41) Alkaline Phosphatase 144 U/L (40-129) H Total Protein 6.0 g/dL (6.6-8.7) L Albumin 1.5 g/dL (3.5-5.2) L Globulin 4.5 g/dL Albumin/Globulin Ratio 0.3 (1.0-2.7) L Objective GENERAL: The patient is a very unfortunate 66-year-old gentleman, alert and awake, in no apparent respiratory distress. HEENT: Atraumatic and normocephalic. Anicteric. Pupils are equal, round, and reactive to light and accommodation. Extraocular muscles intact. NECK: JVP is 5 cm, but no carotid bruit. Carotid upstrokes 2+ bilaterally. CARDIOVASCULAR: Normal S1 and S2. Regular rate and rhythm. A 2/6 mid systolic murmur left sternal border. PMI is at fourth intercostal space in the midclavicular line. LUNGS: Diminished breath sounds at both bases. ABDOMEN: Distended with ascites. Positive shifting dullness. EXTREMITIES: There is 1+ to 3+ edema bilaterally. ASHLEY URIBE October 02, 2016 22:22
--- NOTE | 2016-10-02 23:02 | Pulmonology Progress Note ---
Assessment/Plan Problems: (1) Acute hepatic encephalopathy (2) EDITH (acute kidney injury) (3) End-stage liver disease (4) Coagulopathy (5) Elevated CEA (6) Anemia Assessment/Plan f/u ammonia level h/h stable endoscopy showed esophageal varrices increased CEA and shazia fetoprotein showing some kind of malignancy off antibiotics consider DNR and comfort care pt satisfies Medicare criteria for hospice cane pt singed the consent for Hospice Subjective ROS Limited/Unobtainable: No Constitutional: Reports: no symptoms HEENT: Repors: no symptoms Respiratory: Reports: no symptoms Cardiovascular: Reports: no symptoms Gastrointestinal/Abdominal: Reports: no symptoms Genitourinary: Reports: no symptoms Neurologic: Reports: no symptoms Psychiatric: Reports: no symptoms Skin: Reports: no symptoms Endocrine: Reports: no symptoms Hematologic: Reports: no symptoms Allergies: Coded Allergies: No Known Allergies (Unverified , 09/06/16) Objective Last 24 Hour Vital Signs Date Time Temp Pulse Resp B/P Pulse Ox O2 Delivery O2 Flow Rate FiO2 10/02/16 19:41 97.2 89 15 103/72 100 Nasal Cannula 2.5 10/02/16 19:28 100 Nasal Cannula 2.0 28 10/02/16 19:28 Nasal Cannula 2.0 28 10/02/16 16:13 97.2 10/02/16 16:12 97.2 83 21 100/68 100 Nasal Cannula 10/02/16 12:24 97.2 91 17 121/67 100 Nasal Cannula 10/02/16 08:27 97.2 91 17 121/67 100 Nasal Cannula 2.0 10/02/16 04:00 97.7 93 18 97/62 Nasal Cannula 2.0 10/02/16 00:00 97.7 85 20 113/75 Nasal Cannula 2.0 Intake and Output 10/01/16 10/02/16 19:00 07:00 Intake Total 840 ml 600 ml Output Total 240 ml 250 ml Balance 600 ml 350 ml Intake Oral 840 ml 600 ml Output Urine Total 240 ml 250 ml # Bowel Movements 1 General Appearance: WD/WN, cachetic HEENT: normocephalic, atraumatic Respiratory/Chest: chest wall non-tender, lungs clear Cardiovascular: normal peripheral pulses, normal rate Abdomen: normal bowel sounds, soft, non tender Genitourinary: normal external genitalia 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, no motor/sensory deficits Lymphatic: no neck adenopathy Laboratory Tests 10/02/16 04:00: White Blood Count 3.6L, Red Blood Count 2.39L, Hemoglobin 8.0L, Hematocrit 25.5L , Mean Corpuscular Volume 106H, Mean Corpuscular Hemoglobin 33.3H, Mean Corpuscular Hemoglobin Concent 31.3L, Red Cell Distribution Width 20.8H, Platelet Count 44L, Mean Platelet Volume 6.2L, Neutrophils (%) (Auto) , Lymphocytes (%) (Auto) , Monocytes (%) (Auto) , Eosinophils (%) (Auto) , Basophils (%) (Auto) , Differential Total Cells Counted 100, Neutrophils % ( Manual) 86H, Lymphocytes % (Manual) 5L, Monocytes % (Manual) 7, Eosinophils % ( Manual) 2, Basophils % (Manual) 0, Band Neutrophils 0, Nucleated Red Blood Cells 1, Platelet Estimate DecreasedL, Platelet Morphology Normal, Hypochromasia 3+, Anisocytosis 2+, Macrocytosis 1+, Sodium Level 133L, Potassium Level 3.6, Chloride Level 99, Carbon Dioxide Level 22, Anion Gap 12, Blood Urea Nitrogen 34H, Creatinine 1.5H, Estimat Glomerular Filtration Rate 57.0, Glucose Level 121H, Calcium Level 8.1L, Total Bilirubin 2.4H, Direct Bilirubin 1.2H, Aspartate Amino Transf (AST/SGOT) 105H, Alanine Aminotransferase (ALT/SGPT) 31, Alkaline Phosphatase 144H, Total Protein 6.0L, Albumin 1.5L, Globulin 4.5, Albumin/Globulin Ratio 0.3L Current Medications Medications (Trade) Dose Ordered Sig/Carolynn Route PRN Reason Start Time Stop Time Status Last Admin Dose Admin Acetaminophen (Tylenol) 650 mg Q4H PRN ORAL Mild Pain/Temp > 100.5 09/28/16 23:00 10/28/16 22:59 Acetaminophen/ Hydrocodone Bitart ([place] 5/325) 1 tab Q4H PRN ORAL Moderate Pain (Pain Scale 4-6) 09/28/16 23:00 10/05/16 22:59 10/02/16 15:14 Ascorbic Acid (Vitamin C) 500 mg DAILY ORAL 09/29/16 09:00 10/29/16 08:59 10/02/16 08:43 Bisacodyl (Dulcolax) 10 mg DAILYPRN PRN RECTAL Constipation 09/29/16 19:00 10/29/16 18:59 Docusate Sodium (Colace) 100 mg TWICE A DAY ORAL 09/29/16 09:00 10/29/16 08:59 10/02/16 18:05 Ergocalciferol (Drisdol) 50,000 intlu MoTh ORAL 09/30/16 09:00 10/30/16 08:59 09/30/16 08:17 Finasteride (Proscar) 5 mg DAILY ORAL 09/29/16 14:00 10/29/16 13:59 10/02/16 08:42 Lactulose (Cephulac) 30 gm BID ORAL 09/29/16 09:00 10/29/16 08:59 10/02/16 18:05 Midodrine (Pro-Amatine) 2.5 mg THREE TIMES A DAY ORAL 09/30/16 13:00 10/30/16 12:59 10/02/16 18:05 Nystatin (Nystop Powder) 1 applic THREE TIMES A DAY TOPIC 09/30/16 18:00 10/30/16 17:59 10/02/16 18:05 Pantoprazole (Protonix) 40 mg EVERY 12 HOURS ORAL 09/30/16 21:00 10/30/16 20:59 10/02/16 21:02 Rifaximin (Xifaxan) 550 mg TWICE A DAY ORAL 09/29/16 09:00 10/06/16 08:59 10/02/16 18:05 Sodium Chloride (NS) 550 ml @ 0 mls/hr Q0M PRN IV PRN SBP < 95 09/28/16 21:30 10/28/16 21:29 Tamsulosin HCl (Flomax) 0.4 mg BID ORAL 10/02/16 09:00 11/01/16 08:59 10/02/16 18:05 CIRA KOCH October 02, 2016 23:02
[2016-10-03] VITALS (8 sets, daily range): BP systolic 111–120; BP diastolic 61–80
[2016-10-03] MEDS: Norco 5mg/325mg tab ORAL PRN (00:42)
[2016-10-03 06:36] LABS: MEAN CORPUSCULAR HEMOGLOBIN 32.9 PG (27.0-31.0); MEAN CORPUSCULAR HGB CONC 31.3 G/DL (32.0-36.0); MEAN CORPUSCULAR VOLUME 105 FL (80-99); MEAN PLATELET VOLUME 7.5 FL (6.5-10.1); PLATELET COUNT 51 K/UL (150-450); RED BLOOD COUNT 2.54 M/UL (4.70-6.10); RED CELL DISTRIBUTION WIDTH 20.5 % (11.6-14.8); WHITE BLOOD COUNT 3.7 K/UL (4.8-10.8)
[2016-10-03 07:28] LABS: ALBUMIN/GLOBULIN RATIO 0.3 (1.0-2.7); CREATININE 1.6 mg/dL (0.7-1.2); GLOMERULAR FILTRATION RATE 52.8 mL/min (>60); POTASSIUM 3.8 mEQ/L (3.4-4.9); TOTAL PROTEIN 6.3 g/dL (6.6-8.7)
[2016-10-03 07:40] LABS: BILIRUBIN,DIRECT 1.2 mg/dL (0.1-0.3)
[2016-10-03 07:47] LABS: BAND NEUTROPHILS % (MANUAL) 0 % (0-8); BASOPHILS % (MANUAL) 0 % (0-2); EOSINOPHILS % (MANUAL) 3 % (0-3); LYMPHOCYTES % (MANUAL) 10 % (20-45); NEUTROPHILS % (MANUAL) 84 % (45-75); PLATELET ESTIMATE DECREASED; PLATELET MORPHOLOGY NORMAL; TOTAL CELLS COUNTED 100
[2016-10-03] MEDS: Ascorbic Acid 500mg tab ORAL SCH (08:36)
[2016-10-03] MEDS: Rifaximin 550mg tab ORAL SCH ×2 (08:36→17:44)
[2016-10-03] MEDS: Nystatin Powder 100,000 units/gm 15gm TOPIC SCH ×3 (08:36→17:44)
[2016-10-03] MEDS: Vitamin D 50,000 units cap ORAL SCH (08:37)
[2016-10-03] MEDS: Docusate 100mg cap ORAL SCH ×2 (08:42→17:43)
[2016-10-03] MEDS: Lactulose 20gm/30ml UDC ORAL SCH ×2 (08:42→17:43)
[2016-10-03] MEDS: Tamsulosin 0.4mg cap ORAL SCH ×2 (08:43→17:43)
--- NOTE | 2016-10-03 09:16 | Urology Progress Note ---
Assessment/Plan Assessment/Plan 1. Urinary retention. 2. Benign prostatic hypertrophy. 3. Possible neurogenic bladder. 4. Hematuria. 5. Pyuria. 6. Proteinuria. 7. Renal insufficiency which is acute on chronic. weeks indwelling cont flomax BID, proscar resumed monitor renal fxn repeat voiding trial later Subjective Allergies: Coded Allergies: No Known Allergies (Unverified , 09/06/16) Subjective all noted Objective Last 24 Hour Vital Signs Date Time Temp Pulse Resp B/P Pulse Ox O2 Delivery O2 Flow Rate FiO2 10/03/16 07:54 98.1 93 20 113/78 100 Nasal Cannula 2.0 10/03/16 04:23 97.0 97 15 111/63 99 Nasal Cannula 2.0 10/02/16 23:48 97.7 96 20 135/65 97 Room Air 10/02/16 19:41 97.2 89 15 103/72 100 Nasal Cannula 2.5 10/02/16 19:28 100 Nasal Cannula 2.0 28 10/02/16 19:28 Nasal Cannula 2.0 28 10/02/16 16:13 97.2 10/02/16 16:12 97.2 83 21 100/68 100 Nasal Cannula 10/02/16 12:24 97.2 91 17 121/67 100 Nasal Cannula Intake and Output 10/02/16 10/03/16 19:00 07:00 Output Total 400 ml Balance -400 ml Output Urine Total 400 ml # Bowel Movements 1 Microbiology Date/Time Source Procedure Growth Status 09/25/16 21:05 Blood Blood Culture - Final NO GROWTH AFTER 5 DAYS Complete 09/24/16 02:35 Nasal Nares MRSA Culture - Final NO METHICILLIN RESISTANT STAPH AUREUS... Complete 09/25/16 21:00 Urine,Clean Catch Urine Culture - Final NO GROWTH AFTER 48 HOURS Complete 09/26/16 14:15 Abdominal Fluid Gram Stain - Final Complete 09/26/16 14:15 Abdominal Fluid Body Fluid Culture - Final NO GROWTH Complete Current Medications Medications (Trade) Dose Ordered Sig/Carolynn Route PRN Reason Start Time Stop Time Status Last Admin Dose Admin Acetaminophen (Tylenol) 650 mg Q4H PRN ORAL Mild Pain/Temp > 100.5 09/28/16 23:00 10/28/16 22:59 Acetaminophen/ Hydrocodone Bitart ([place] 5/325) 1 tab Q4H PRN ORAL Moderate Pain (Pain Scale 4-6) 09/28/16 23:00 10/05/16 22:59 10/03/16 00:42 Ascorbic Acid (Vitamin C) 500 mg DAILY ORAL 09/29/16 09:00 10/29/16 08:59 10/03/16 08:36 Bisacodyl (Dulcolax) 10 mg DAILYPRN PRN RECTAL Constipation 09/29/16 19:00 10/29/16 18:59 Docusate Sodium (Colace) 100 mg TWICE A DAY ORAL 09/29/16 09:00 10/29/16 08:59 10/02/16 18:05 Ergocalciferol (Drisdol) 50,000 intlu MoTh ORAL 09/30/16 09:00 10/30/16 08:59 10/03/16 08:37 Finasteride (Proscar) 5 mg DAILY ORAL 09/29/16 14:00 10/29/16 13:59 10/02/16 08:42 Lactulose (Cephulac) 30 gm BID ORAL 09/29/16 09:00 10/29/16 08:59 10/02/16 18:05 Midodrine (Pro-Amatine) 2.5 mg THREE TIMES A DAY ORAL 09/30/16 13:00 10/30/16 12:59 10/02/16 18:05 Nystatin (Nystop Powder) 1 applic THREE TIMES A DAY TOPIC 09/30/16 18:00 10/30/16 17:59 10/03/16 08:36 Pantoprazole (Protonix) 40 mg EVERY 12 HOURS ORAL 09/30/16 21:00 10/30/16 20:59 10/02/16 21:02 Rifaximin (Xifaxan) 550 mg TWICE A DAY ORAL 09/29/16 09:00 10/06/16 08:59 10/03/16 08:36 Sodium Chloride (NS) 550 ml @ 0 mls/hr Q0M PRN IV PRN SBP < 95 09/28/16 21:30 10/28/16 21:29 Tamsulosin HCl (Flomax) 0.4 mg BID ORAL 10/02/16 09:00 11/01/16 08:59 10/02/16 18:05 Laboratory Tests 10/03/16 05:00: White Blood Count 3.7L, Red Blood Count 2.54L, Hemoglobin 8.3L, Hematocrit 26.6L , Mean Corpuscular Volume 105H, Mean Corpuscular Hemoglobin 32.9H, Mean Corpuscular Hemoglobin Concent 31.3L, Red Cell Distribution Width 20.5H, Platelet Count 51L, Mean Platelet Volume 7.5, Neutrophils (%) (Auto) , Lymphocytes (%) (Auto) , Monocytes (%) (Auto) , Eosinophils (%) (Auto) , Basophils (%) (Auto) , Differential Total Cells Counted 100, Neutrophils % ( Manual) 84H, Lymphocytes % (Manual) 10L, Monocytes % (Manual) 3, Eosinophils % ( Manual) 3, Basophils % (Manual) 0, Band Neutrophils 0, Platelet Estimate DecreasedL, Platelet Morphology Normal, Red Blood Cell Morphology Normal, Sodium Level 134L, Potassium Level 3.8, Chloride Level 99, Carbon Dioxide Level 22, Anion Gap 13, Blood Urea Nitrogen 33H, Creatinine 1.6H, Estimat Glomerular Filtration Rate 52.8, Glucose Level 117H, Calcium Level 8.0L, Total Bilirubin 2.3H, Direct Bilirubin 1.2H, Aspartate Amino Transf (AST/SGOT) 101H, Alanine Aminotransferase (ALT/SGPT) 32, Alkaline Phosphatase 163H, Total Protein 6.3L, Albumin 1.6L, Globulin 4.7, Albumin/Globulin Ratio 0.3L Height (Feet): 6 Height (Inches): 2.00 Weight (Pounds): 232 Objective exam stable MESHA TRUONG October 03, 2016 09:16
--- NOTE | 2016-10-03 09:29 | General Progress Note ---
Assessment/Plan Assessment/Plan (1) Dementia (2) S/p Mechanical fall (3) Left hip Fracture (4) Left hip pain (5) S/p Left hip hemiarthroplasty Patient will be continued on Ada as needed. Parameters continued. D/w Dr. Donald and he concurred. Subjective Date patient seen: October 03, 2016 Time patient seen: 07:00 - am Allergies: Coded Allergies: No Known Allergies (Unverified , 09/06/16) Subjective REVIEW OF SYSTEMS: Complaining of left hip pain SUBJECTIVE: He continues to lay in bed in no acute distress at this time. The pain has been tolerated well on the Ada. He c/o pain being aggravated with movement. Objective Last 24 Hour Vital Signs Date Time Temp Pulse Resp B/P Pulse Ox O2 Delivery O2 Flow Rate FiO2 10/03/16 07:54 98.1 93 20 113/78 100 Nasal Cannula 2.0 10/03/16 04:23 97.0 97 15 111/63 99 Nasal Cannula 2.0 10/02/16 23:48 97.7 96 20 135/65 97 Room Air 10/02/16 19:41 97.2 89 15 103/72 100 Nasal Cannula 2.5 10/02/16 19:28 100 Nasal Cannula 2.0 28 10/02/16 19:28 Nasal Cannula 2.0 28 10/02/16 16:13 97.2 10/02/16 16:12 97.2 83 21 100/68 100 Nasal Cannula 10/02/16 12:24 97.2 91 17 121/67 100 Nasal Cannula Intake and Output 10/02/16 10/03/16 19:00 07:00 Output Total 400 ml Balance -400 ml Output Urine Total 400 ml # Bowel Movements 1 Laboratory Tests 10/03/16 05:00: White Blood Count 3.7L, Red Blood Count 2.54L, Hemoglobin 8.3L, Hematocrit 26.6L , Mean Corpuscular Volume 105H, Mean Corpuscular Hemoglobin 32.9H, Mean Corpuscular Hemoglobin Concent 31.3L, Red Cell Distribution Width 20.5H, Platelet Count 51L, Mean Platelet Volume 7.5, Neutrophils (%) (Auto) , Lymphocytes (%) (Auto) , Monocytes (%) (Auto) , Eosinophils (%) (Auto) , Basophils (%) (Auto) , Differential Total Cells Counted 100, Neutrophils % ( Manual) 84H, Lymphocytes % (Manual) 10L, Monocytes % (Manual) 3, Eosinophils % ( Manual) 3, Basophils % (Manual) 0, Band Neutrophils 0, Platelet Estimate DecreasedL, Platelet Morphology Normal, Red Blood Cell Morphology Normal, Sodium Level 134L, Potassium Level 3.8, Chloride Level 99, Carbon Dioxide Level 22, Anion Gap 13, Blood Urea Nitrogen 33H, Creatinine 1.6H, Estimat Glomerular Filtration Rate 52.8, Glucose Level 117H, Calcium Level 8.0L, Total Bilirubin 2.3H, Direct Bilirubin 1.2H, Aspartate Amino Transf (AST/SGOT) 101H, Alanine Aminotransferase (ALT/SGPT) 32, Alkaline Phosphatase 163H, Total Protein 6.3L, Albumin 1.6L, Globulin 4.7, Albumin/Globulin Ratio 0.3L Height (Feet): 6 Height (Inches): 2.00 Weight (Pounds): 232 Objective GENERAL: Alert and awake. HEENT: PERRLA. NECK: Range of motion is full in all directions. No tenderness to paracervical muscles. LUNGS: Clear. HEART: Regular. ABDOMEN: Distended. BACK: Range of motion is decreased in flexion and extension. EXTREMITIES: Lower extremity motion is decreased over the left hip. Tenderness to palpation. SLOAN PACKER October 03, 2016 09:29
--- NOTE | 2016-10-03 09:47 | GI Progress Note ---
Assessment/Plan Problems: (1) Acute hepatic encephalopathy ICD Codes: K72.00 - Acute and subacute hepatic failure without coma SNOMED: 49152579 (2) LFT elevation ICD Codes: R94.5 - Abnormal results of liver function studies SNOMED: 196037232 (3) History of alcoholism ICD Codes: F10.21 - Alcohol dependence, in remission SNOMED: 811514916 (4) Elevated CEA ICD Codes: R97.0 - Elevated carcinoembryonic antigen [CEA] SNOMED: 55615326, 053587160 (5) Anemia ICD Codes: D64.9 - Anemia, unspecified SNOMED: 376190107 Qualifiers: Qualified Codes: D64.9 - Anemia, unspecified (6) Dehydration ICD Codes: E86.0 - Dehydration SNOMED: 91825184 Status: unchanged Status Narrative Discussed with Dr. Bojorquez. Assessment/Plan S/P EGD - FINDINGS: 1. Severe portal hypertensive gastropathy. Status post biopsy. >> unremarkable 2. Distal esophageal varices grade I/II without any stigmata. ok for DC per GI standpoint >> recommend outpatient colonoscopy >> refused to have as inpatient, wants to leave. Hep C positive elevated CEA >> 9.6 s/p paracentesis >> 5L yield >> SBP negative ammonia WNL >> cont lactulose + Xifaxan stable H&H OB stool pending ppi dc propranolol fu labs PT evaluation Subjective Subjective wants to get up abdominal distention Objective Last 24 Hour Vital Signs Date Time Temp Pulse Resp B/P Pulse Ox O2 Delivery O2 Flow Rate FiO2 10/03/16 07:54 98.1 93 20 113/78 100 Nasal Cannula 2.0 10/03/16 04:23 97.0 97 15 111/63 99 Nasal Cannula 2.0 10/02/16 23:48 97.7 96 20 135/65 97 Room Air 10/02/16 19:41 97.2 89 15 103/72 100 Nasal Cannula 2.5 10/02/16 19:28 100 Nasal Cannula 2.0 28 10/02/16 19:28 Nasal Cannula 2.0 28 10/02/16 16:13 97.2 10/02/16 16:12 97.2 83 21 100/68 100 Nasal Cannula 10/02/16 12:24 97.2 91 17 121/67 100 Nasal Cannula Intake and Output 5/10/17 5/11/17 19:00 07:00 Output Total 400 ml Balance -400 ml Output Urine Total 400 ml # Bowel Movements 1 Laboratory Tests Test 10/03/16 05:00 White Blood Count 3.7 K/UL (4.8-10.8) L Red Blood Count 2.54 M/UL (4.70-6.10) L Hemoglobin 8.3 G/DL (14.2-18.0) L Hematocrit 26.6 % (42.0-52.0) L Mean Corpuscular Volume 105 FL (80-99) H Mean Corpuscular Hemoglobin 32.9 PG (27.0-31.0) H Mean Corpuscular Hemoglobin Concent 31.3 G/DL (32.0-36.0) L Red Cell Distribution Width 20.5 % (11.6-14.8) H Platelet Count 51 K/UL (150-450) L Mean Platelet Volume 7.5 FL (6.5-10.1) Neutrophils (%) (Auto) % (45.0-75.0) Lymphocytes (%) (Auto) % (20.0-45.0) Monocytes (%) (Auto) % (1.0-10.0) Eosinophils (%) (Auto) % (0.0-3.0) Basophils (%) (Auto) % (0.0-2.0) Differential Total Cells Counted 100 Neutrophils % (Manual) 84 % (45-75) H Lymphocytes % (Manual) 10 % (20-45) L Monocytes % (Manual) 3 % (1-10) Eosinophils % (Manual) 3 % (0-3) Basophils % (Manual) 0 % (0-2) Band Neutrophils 0 % (0-8) Platelet Estimate Decreased L Platelet Morphology Normal Red Blood Cell Morphology Normal Sodium Level 134 mEQ/L (135-145) L Potassium Level 3.8 mEQ/L (3.4-4.9) Chloride Level 99 mEQ/L (98-107) Carbon Dioxide Level 22 mEQ/L (20-30) Anion Gap 13 (5-15) Blood Urea Nitrogen 33 mg/dL (7-23) H Creatinine 1.6 mg/dL (0.7-1.2) H Estimat Glomerular Filtration Rate 52.8 mL/min (>60) Glucose Level 117 mg/dL (74-106) H Calcium Level 8.0 mg/dL (8.6-10.2) L Total Bilirubin 2.3 mg/dL (0.0-1.2) H Direct Bilirubin 1.2 mg/dL (0.1-0.3) H Aspartate Amino Transf (AST/SGOT) 101 U/L (5-40) H Alanine Aminotransferase (ALT/SGPT) 32 U/L (3-41) Alkaline Phosphatase 163 U/L (40-129) H Total Protein 6.3 g/dL (6.6-8.7) L Albumin 1.6 g/dL (3.5-5.2) L Globulin 4.7 g/dL Albumin/Globulin Ratio 0.3 (1.0-2.7) L Height (Feet): 6 Height (Inches): 2.00 Weight (Pounds): 232 General Appearance: no apparent distress, alert Cardiovascular: normal rate Respiratory/Chest: normal breath sounds Abdominal Exam: distended, ascites Bren Palacios NJesika October 03, 2016 09:47
[2016-10-03] MEDS ORDERED: Norco 5mg/325mg tab ORAL PRN (10:00)
--- NOTE | 2016-10-03 11:13 | Infectious Diseases Prog Note ---
Assessment/Plan Assessment/Plan A: No evid of sepsis at this time Monitor cultures of the blood and urine: neg SP Hypotension SP Paracentesis no evidence of SPB No evidence of surgical site infection at this time Hepatitis C antibody + HIV : neg Depression Hypotension due to bradycardia Dementia Alcohol abuse Anemia History of left hip surgery four months ago CT of the pelvis, left hip : hemiarthroplasty, fracture of intertrochanteric region of the femur, soft tissue swelling, hematoma, and ascites PLAN: Monitor the patient off of antibiotics Monitor CBC Monitor BMP. Subjective Constitutional: Denies: anorexia, chills, drenching sweats, fatigue, fever, no symptoms, other Allergies: Coded Allergies: No Known Allergies (Unverified , 09/06/16) Subjective Objective Vital Signs Last 24 Hour Vital Signs Date Time Temp Pulse Resp B/P Pulse Ox O2 Delivery O2 Flow Rate FiO2 10/03/16 07:54 98.1 93 20 113/78 100 Nasal Cannula 2.0 10/03/16 04:23 97.0 97 15 111/63 99 Nasal Cannula 2.0 10/02/16 23:48 97.7 96 20 135/65 97 Room Air 10/02/16 19:41 97.2 89 15 103/72 100 Nasal Cannula 2.5 10/02/16 19:28 100 Nasal Cannula 2.0 28 10/02/16 19:28 Nasal Cannula 2.0 28 10/02/16 16:13 97.2 10/02/16 16:12 97.2 83 21 100/68 100 Nasal Cannula 10/02/16 12:24 97.2 91 17 121/67 100 Nasal Cannula Height (Feet): 6 Height (Inches): 2.00 Weight (Pounds): 232 HEENT: atraumatic Respiratory/Chest: normal breath sounds Cardiovascular: regular rhythm Abdomen: no organomegaly Laboratory Tests Test 10/03/16 05:00 White Blood Count 3.7 K/UL (4.8-10.8) L Red Blood Count 2.54 M/UL (4.70-6.10) L Hemoglobin 8.3 G/DL (14.2-18.0) L Hematocrit 26.6 % (42.0-52.0) L Mean Corpuscular Volume 105 FL (80-99) H Mean Corpuscular Hemoglobin 32.9 PG (27.0-31.0) H Mean Corpuscular Hemoglobin Concent 31.3 G/DL (32.0-36.0) L Red Cell Distribution Width 20.5 % (11.6-14.8) H Platelet Count 51 K/UL (150-450) L Mean Platelet Volume 7.5 FL (6.5-10.1) Neutrophils (%) (Auto) % (45.0-75.0) Lymphocytes (%) (Auto) % (20.0-45.0) Monocytes (%) (Auto) % (1.0-10.0) Eosinophils (%) (Auto) % (0.0-3.0) Basophils (%) (Auto) % (0.0-2.0) Differential Total Cells Counted 100 Neutrophils % (Manual) 84 % (45-75) H Lymphocytes % (Manual) 10 % (20-45) L Monocytes % (Manual) 3 % (1-10) Eosinophils % (Manual) 3 % (0-3) Basophils % (Manual) 0 % (0-2) Band Neutrophils 0 % (0-8) Platelet Estimate Decreased L Platelet Morphology Normal Red Blood Cell Morphology Normal Sodium Level 134 mEQ/L (135-145) L Potassium Level 3.8 mEQ/L (3.4-4.9) Chloride Level 99 mEQ/L (98-107) Carbon Dioxide Level 22 mEQ/L (20-30) Anion Gap 13 (5-15) Blood Urea Nitrogen 33 mg/dL (7-23) H Creatinine 1.6 mg/dL (0.7-1.2) H Estimat Glomerular Filtration Rate 52.8 mL/min (>60) Glucose Level 117 mg/dL (74-106) H Calcium Level 8.0 mg/dL (8.6-10.2) L Total Bilirubin 2.3 mg/dL (0.0-1.2) H Direct Bilirubin 1.2 mg/dL (0.1-0.3) H Aspartate Amino Transf (AST/SGOT) 101 U/L (5-40) H Alanine Aminotransferase (ALT/SGPT) 32 U/L (3-41) Alkaline Phosphatase 163 U/L (40-129) H Total Protein 6.3 g/dL (6.6-8.7) L Albumin 1.6 g/dL (3.5-5.2) L Globulin 4.7 g/dL Albumin/Globulin Ratio 0.3 (1.0-2.7) L Current Medications Medications (Trade) Dose Ordered Sig/Carolynn Route PRN Reason Start Time Stop Time Status Last Admin Dose Admin Acetaminophen (Tylenol) 650 mg Q4H PRN ORAL Mild Pain/Temp > 100.5 09/28/16 23:00 10/28/16 22:59 Acetaminophen/ Hydrocodone Bitart ([place] 5/325) 1 tab Q4H PRN ORAL Moderate Pain (Pain Scale 4-6) 10/03/16 10:00 10/10/16 09:59 Ascorbic Acid (Vitamin C) 500 mg DAILY ORAL 09/29/16 09:00 10/29/16 08:59 10/03/16 08:36 Bisacodyl (Dulcolax) 10 mg DAILYPRN PRN RECTAL Constipation 09/29/16 19:00 10/29/16 18:59 Docusate Sodium (Colace) 100 mg TWICE A DAY ORAL 09/29/16 09:00 10/29/16 08:59 10/02/16 18:05 Ergocalciferol (Drisdol) 50,000 intlu MoTh ORAL 09/30/16 09:00 10/30/16 08:59 10/03/16 08:37 Finasteride (Proscar) 5 mg DAILY ORAL 09/29/16 14:00 10/29/16 13:59 10/02/16 08:42 Lactulose (Cephulac) 30 gm BID ORAL 09/29/16 09:00 10/29/16 08:59 10/02/16 18:05 Midodrine (Pro-Amatine) 2.5 mg THREE TIMES A DAY ORAL 09/30/16 13:00 10/30/16 12:59 10/02/16 18:05 Nystatin (Nystop Powder) 1 applic THREE TIMES A DAY TOPIC 09/30/16 18:00 10/30/16 17:59 10/03/16 08:36 Pantoprazole (Protonix) 40 mg EVERY 12 HOURS ORAL 09/30/16 21:00 10/30/16 20:59 10/02/16 21:02 Rifaximin (Xifaxan) 550 mg TWICE A DAY ORAL 09/29/16 09:00 10/06/16 08:59 10/03/16 08:36 Sodium Chloride (NS) 550 ml @ 0 mls/hr Q0M PRN IV PRN SBP < 95 09/28/16 21:30 10/28/16 21:29 Tamsulosin HCl (Flomax) 0.4 mg BID ORAL 10/02/16 09:00 11/01/16 08:59 10/02/16 18:05 CHAY DOMINGO M.D. October 03, 2016 11:13
--- NOTE | 2016-10-03 11:14 | General Progress Note ---
Assessment/Plan Status: stable Status Narrative Cr 1.6 Assessment/Plan status; Acute renal failure- Severe Anemia HyperKalemia- resolved Dehydration Proteinuria UTI High INR others: 1. s/p Status post mechanical fall. 2. Left periprosthetic femoral fracture. 3. Alcoholic liver cirrhosis. 4. s/p Elevated transaminase. 5. 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 6. Elevated tumor markers (CEA, AFP/alpha-fetoprotein). 7. Acute hepatic encephalopathy. 8. Hypertension. 9. Dementia. 10. Psychosis. 11. History of hemiarthroplasty, left hip, recent. 12. Hepatitis C. 13. History of alcohol abuse. 14. Anemia of chronic disease. 15. Thrombocytopenia, secondary to alcohol abuse. Plan; Transfuse as needed down dose Midodrine- hold mind altering meds- antibiotics - avoid nephrotoxics urine studies monitor renal parameters Tap Ascitis PRN per orders Subjective ROS Limited/Unobtainable: No Constitutional: Reports: malaise Allergies: Coded Allergies: No Known Allergies (Unverified , 09/06/16) Objective Last 24 Hour Vital Signs Date Time Temp Pulse Resp B/P Pulse Ox O2 Delivery O2 Flow Rate FiO2 10/03/16 07:54 98.1 93 20 113/78 100 Nasal Cannula 2.0 10/03/16 04:23 97.0 97 15 111/63 99 Nasal Cannula 2.0 10/02/16 23:48 97.7 96 20 135/65 97 Room Air 10/02/16 19:41 97.2 89 15 103/72 100 Nasal Cannula 2.5 10/02/16 19:28 100 Nasal Cannula 2.0 28 10/02/16 19:28 Nasal Cannula 2.0 28 10/02/16 16:13 97.2 10/02/16 16:12 97.2 83 21 100/68 100 Nasal Cannula 10/02/16 12:24 97.2 91 17 121/67 100 Nasal Cannula Intake and Output 10/02/16 10/03/16 19:00 07:00 Output Total 400 ml Balance -400 ml Output Urine Total 400 ml # Bowel Movements 1 Laboratory Tests 10/03/16 05:00: White Blood Count 3.7L, Red Blood Count 2.54L, Hemoglobin 8.3L, Hematocrit 26.6L , Mean Corpuscular Volume 105H, Mean Corpuscular Hemoglobin 32.9H, Mean Corpuscular Hemoglobin Concent 31.3L, Red Cell Distribution Width 20.5H, Platelet Count 51L, Mean Platelet Volume 7.5, Neutrophils (%) (Auto) , Lymphocytes (%) (Auto) , Monocytes (%) (Auto) , Eosinophils (%) (Auto) , Basophils (%) (Auto) , Differential Total Cells Counted 100, Neutrophils % ( Manual) 84H, Lymphocytes % (Manual) 10L, Monocytes % (Manual) 3, Eosinophils % ( Manual) 3, Basophils % (Manual) 0, Band Neutrophils 0, Platelet Estimate DecreasedL, Platelet Morphology Normal, Red Blood Cell Morphology Normal, Sodium Level 134L, Potassium Level 3.8, Chloride Level 99, Carbon Dioxide Level 22, Anion Gap 13, Blood Urea Nitrogen 33H, Creatinine 1.6H, Estimat Glomerular Filtration Rate 52.8, Glucose Level 117H, Calcium Level 8.0L, Total Bilirubin 2.3H, Direct Bilirubin 1.2H, Aspartate Amino Transf (AST/SGOT) 101H, Alanine Aminotransferase (ALT/SGPT) 32, Alkaline Phosphatase 163H, Total Protein 6.3L, Albumin 1.6L, Globulin 4.7, Albumin/Globulin Ratio 0.3L Height (Feet): 6 Height (Inches): 2.00 Weight (Pounds): 232 General Appearance: no apparent distress Objective no change in PE PRINCESS PALACIO October 03, 2016 11:13
--- NOTE | 2016-10-03 13:51 | General Progress Note ---
Assessment/Plan Status: stable Assessment/Plan 1. Shock: ddx, cardiogenic secondary to arrythmai, 2. Bradycardia-junctional rhythm, 3.Bleeding diatheses from the postoperative left-sided hip area. 4. Left-sided hip fracture, status post complicated course of infection and revision surgery in [facility] in August 2016. 5. Acute anemia. 6. Anxiety and depression. 5. Dementia. 6. Alcoholic cirrhosis. 7. Chronic Hep-C 7. Hypercoagulable state. 8. Iron deficiency anemia. 9. Pain management. 11. A/C Renal failure 12. Ascites: S/p paracenthesis twice 10. Gastrointestinal and deep vein thrombosis prophylaxis. Plan: Ok to resume Alpha bladimir and proceed with Voiding trial Ok to continue ASA, per [facility] Notes are reviewed Poor Prognosis, but stable at this time Ascites worsening Failed urination off Carter Ok to Dc to facility, once bed available Subjective ROS Limited/Unobtainable: Yes Allergies: Coded Allergies: No Known Allergies (Unverified , 09/06/16) Objective Last 24 Hour Vital Signs Date Time Temp Pulse Resp B/P Pulse Ox O2 Delivery O2 Flow Rate FiO2 10/03/16 11:36 97.7 97 20 112/69 99 Nasal Cannula 2.0 10/03/16 07:54 98.1 93 20 113/78 100 Nasal Cannula 2.0 10/03/16 04:23 97.0 97 15 111/63 99 Nasal Cannula 2.0 10/02/16 23:48 97.7 96 20 135/65 97 Room Air 10/02/16 19:41 97.2 89 15 103/72 100 Nasal Cannula 2.5 10/02/16 19:28 100 Nasal Cannula 2.0 28 10/02/16 19:28 Nasal Cannula 2.0 28 10/02/16 16:13 97.2 10/02/16 16:12 97.2 83 21 100/68 100 Nasal Cannula Intake and Output 10/02/16 10/03/16 19:00 07:00 Output Total 400 ml Balance -400 ml Output Urine Total 400 ml # Bowel Movements 1 Laboratory Tests 10/03/16 05:00: White Blood Count 3.7L, Red Blood Count 2.54L, Hemoglobin 8.3L, Hematocrit 26.6L , Mean Corpuscular Volume 105H, Mean Corpuscular Hemoglobin 32.9H, Mean Corpuscular Hemoglobin Concent 31.3L, Red Cell Distribution Width 20.5H, Platelet Count 51L, Mean Platelet Volume 7.5, Neutrophils (%) (Auto) , Lymphocytes (%) (Auto) , Monocytes (%) (Auto) , Eosinophils (%) (Auto) , Basophils (%) (Auto) , Differential Total Cells Counted 100, Neutrophils % ( Manual) 84H, Lymphocytes % (Manual) 10L, Monocytes % (Manual) 3, Eosinophils % ( Manual) 3, Basophils % (Manual) 0, Band Neutrophils 0, Platelet Estimate DecreasedL, Platelet Morphology Normal, Red Blood Cell Morphology Normal, Sodium Level 134L, Potassium Level 3.8, Chloride Level 99, Carbon Dioxide Level 22, Anion Gap 13, Blood Urea Nitrogen 33H, Creatinine 1.6H, Estimat Glomerular Filtration Rate 52.8, Glucose Level 117H, Calcium Level 8.0L, Total Bilirubin 2.3H, Direct Bilirubin 1.2H, Aspartate Amino Transf (AST/SGOT) 101H, Alanine Aminotransferase (ALT/SGPT) 32, Alkaline Phosphatase 163H, Total Protein 6.3L, Albumin 1.6L, Globulin 4.7, Albumin/Globulin Ratio 0.3L Height (Feet): 6 Height (Inches): 2.00 Weight (Pounds): 232 General Appearance: no apparent distress EENT: PERRL/EOMI Neck: supple Cardiovascular: normal rate Respiratory/Chest: lungs clear Abdomen: distended, other - Shifting dulness, diffuse ascitis Extremities: non-tender Neurologic: disoriented, other - Demented at base line Shanita Oden MD October 03, 2016 13:51
--- NOTE | 2016-10-03 22:23 | Pulmonology Progress Note ---
Assessment/Plan Problems: (1) Acute hepatic encephalopathy (2) EDITH (acute kidney injury) (3) End-stage liver disease (4) Coagulopathy (5) Elevated CEA (6) Anemia Assessment/Plan f/u ammonia level h/h stable endoscopy showed esophageal varrices increased CEA and shazia fetoprotein showing some kind of malignancy off antibiotics consider DNR and comfort care pt satisfies Medicare criteria for hospice cane pt singed the consent for Hospice dc planning in process, pt doens't have any medical Subjective ROS Limited/Unobtainable: No Constitutional: Reports: no symptoms HEENT: Repors: no symptoms Allergies: Coded Allergies: No Known Allergies (Unverified , 09/06/16) Objective Last 24 Hour Vital Signs Date Time Temp Pulse Resp B/P Pulse Ox O2 Delivery O2 Flow Rate FiO2 10/03/16 21:22 98.1 88 20 120/80 Room Air 10/03/16 21:20 98.1 88 20 120/80 100 Room Air 10/03/16 20:20 98.1 88 20 120/80 100 Room Air 10/03/16 19:05 100 Nasal Cannula 2.0 28 10/03/16 19:03 Nasal Cannula 2.0 28 10/03/16 17:35 84 120/61 10/03/16 15:44 98.0 95 20 113/63 99 Nasal Cannula 10/03/16 11:36 97.7 97 20 112/69 99 Nasal Cannula 2.0 10/03/16 09:45 100 Nasal Cannula 2.0 28 10/03/16 09:45 Nasal Cannula 2.0 28 10/03/16 07:54 98.1 93 20 113/78 100 Nasal Cannula 2.0 10/03/16 04:23 97.0 97 15 111/63 99 Nasal Cannula 2.0 10/02/16 23:48 97.7 96 20 135/65 97 Room Air Intake and Output 10/02/16 10/03/16 19:00 07:00 Output Total 400 ml Balance -400 ml Output Urine Total 400 ml # Bowel Movements 1 Objective General Appearance: cachectic HEENT: normocephalic Respiratory/Chest: chest wall non-tender, lungs clear Cardiovascular: normal peripheral pulses, regular rhythm Abdomen: normal bowel sounds, soft, non tender, distended Genitourinary: normal external genitalia Extremities: no cyanosis, no clubbing, positive edema Skin: no rash Laboratory Tests 10/03/16 05:00: White Blood Count 3.7L, Red Blood Count 2.54L, Hemoglobin 8.3L, Hematocrit 26.6L , Mean Corpuscular Volume 105H, Mean Corpuscular Hemoglobin 32.9H, Mean Corpuscular Hemoglobin Concent 31.3L, Red Cell Distribution Width 20.5H, Platelet Count 51L, Mean Platelet Volume 7.5, Neutrophils (%) (Auto) , Lymphocytes (%) (Auto) , Monocytes (%) (Auto) , Eosinophils (%) (Auto) , Basophils (%) (Auto) , Differential Total Cells Counted 100, Neutrophils % ( Manual) 84H, Lymphocytes % (Manual) 10L, Monocytes % (Manual) 3, Eosinophils % ( Manual) 3, Basophils % (Manual) 0, Band Neutrophils 0, Platelet Estimate DecreasedL, Platelet Morphology Normal, Red Blood Cell Morphology Normal, Sodium Level 134L, Potassium Level 3.8, Chloride Level 99, Carbon Dioxide Level 22, Anion Gap 13, Blood Urea Nitrogen 33H, Creatinine 1.6H, Estimat Glomerular Filtration Rate 52.8, Glucose Level 117H, Calcium Level 8.0L, Total Bilirubin 2.3H, Direct Bilirubin 1.2H, Aspartate Amino Transf (AST/SGOT) 101H, Alanine Aminotransferase (ALT/SGPT) 32, Alkaline Phosphatase 163H, Total Protein 6.3L, Albumin 1.6L, Globulin 4.7, Albumin/Globulin Ratio 0.3L Current Medications Medications (Trade) Dose Ordered Sig/Carolynn Route PRN Reason Start Time Stop Time Status Last Admin Dose Admin Acetaminophen (Tylenol) 650 mg Q4H PRN ORAL Mild Pain/Temp > 100.5 09/28/16 23:00 10/28/16 22:59 Acetaminophen/ Hydrocodone Bitart ([place] 5/325) 1 tab Q4H PRN ORAL Moderate Pain (Pain Scale 4-6) 10/03/16 10:00 10/10/16 09:59 Ascorbic Acid (Vitamin C) 500 mg DAILY ORAL 09/29/16 09:00 10/29/16 08:59 10/03/16 08:36 Bisacodyl (Dulcolax) 10 mg DAILYPRN PRN RECTAL Constipation 09/29/16 19:00 10/29/16 18:59 Docusate Sodium (Colace) 100 mg TWICE A DAY ORAL 09/29/16 09:00 10/29/16 08:59 10/03/16 17:43 Ergocalciferol (Drisdol) 50,000 intlu MoTh ORAL 09/30/16 09:00 10/30/16 08:59 10/03/16 08:37 Finasteride (Proscar) 5 mg DAILY ORAL 09/29/16 14:00 10/29/16 13:59 10/02/16 08:42 Lactulose (Cephulac) 30 gm BID ORAL 09/29/16 09:00 10/29/16 08:59 10/03/16 17:43 Midodrine (Pro-Amatine) 2.5 mg THREE TIMES A DAY ORAL 09/30/16 13:00 10/30/16 12:59 10/02/16 18:05 Nystatin (Nystop Powder) 1 applic THREE TIMES A DAY TOPIC 09/30/16 18:00 10/30/16 17:59 10/03/16 17:44 Pantoprazole (Protonix) 40 mg EVERY 12 HOURS ORAL 09/30/16 21:00 10/30/16 20:59 10/02/16 21:02 Rifaximin (Xifaxan) 550 mg TWICE A DAY ORAL 09/29/16 09:00 10/06/16 08:59 10/03/16 17:44 Sodium Chloride (NS) 550 ml @ 0 mls/hr Q0M PRN IV PRN SBP < 95 09/28/16 21:30 10/28/16 21:29 Tamsulosin HCl (Flomax) 0.4 mg BID ORAL 10/02/16 09:00 11/01/16 08:59 10/03/16 17:43 CIRA KOCH October 03, 2016 22:23
--- NOTE | 2016-10-03 23:50 | General Progress Note ---
Assessment/Plan Assessment/Plan IMPRESSION: 1. Thrombocytopenia secondary to alcoholic liver cirrhosis and hepatitis C. hold asa, would hold off on coumadin and/or heparin sq given low platelets. Also patient has DIC as haptoglobin is <29, monitor closely, given sepsis. Has a hx of hepatitis C and 5L removed via para on admission 2. Alcoholic liver cirrhosis. 3. Anemia of bleeding diathesis from hip 4. Coagulopathy secondary to alcoholic liver cirrhosis 5. Acute left hip periprosthetic fracture s/p repair 6. History of alcohol abuse. 7. Hepatitis C. 8. Psychosis. 9. Failure to thrive. RECOMMENDATIONS: -. Prior admission and heme workup has been reviewed -. Ok to continue asa, would hold off on coumadin and/or heparin sq -. Watch coagulopathy. -. Gi service followup -. Vitamin K prn if bleeding -. Reviewed Pulm/CC notes -. Appreciate consultation! Subjective Constitutional: Reports: no symptoms HEENT: Reports: no symptoms Cardiovascular: Reports: no symptoms Respiratory: Reports: no symptoms Gastrointestinal/Abdominal: Reports: poor appetite Genitourinary: Reports: no symptoms Neurologic/Psychiatric: Reports: no symptoms Endocrine: Reports: no symptoms Hematologic/Lymphatic: Reports: anemia Allergies: Coded Allergies: No Known Allergies (Unverified , 09/06/16) Subjective Monitoring counts closely, no events overnight Objective Last 24 Hour Vital Signs Date Time Temp Pulse Resp B/P Pulse Ox O2 Delivery O2 Flow Rate FiO2 10/03/16 21:22 98.1 88 20 120/80 Room Air 10/03/16 21:20 98.1 88 20 120/80 100 Room Air 10/03/16 20:20 98.1 88 20 120/80 100 Room Air 10/03/16 19:05 100 Nasal Cannula 2.0 28 10/03/16 19:03 Nasal Cannula 2.0 28 10/03/16 17:35 84 120/61 10/03/16 15:44 98.0 95 20 113/63 99 Nasal Cannula 10/03/16 11:36 97.7 97 20 112/69 99 Nasal Cannula 2.0 10/03/16 09:45 100 Nasal Cannula 2.0 28 10/03/16 09:45 Nasal Cannula 2.0 10/03/16 07:54 98.1 93 20 113/78 100 Nasal Cannula 2.0 10/03/16 04:23 97.0 97 15 111/63 99 Nasal Cannula 2.0 10/02/16 23:48 97.7 96 20 135/65 97 Room Air Intake and Output 10/02/16 10/03/16 19:00 07:00 Output Total 400 ml Balance -400 ml Output Urine Total 400 ml # Bowel Movements 1 Laboratory Tests 10/03/16 05:00: White Blood Count 3.7L, Red Blood Count 2.54L, Hemoglobin 8.3L, Hematocrit 26.6L , Mean Corpuscular Volume 105H, Mean Corpuscular Hemoglobin 32.9H, Mean Corpuscular Hemoglobin Concent 31.3L, Red Cell Distribution Width 20.5H, Platelet Count 51L, Mean Platelet Volume 7.5, Neutrophils (%) (Auto) , Lymphocytes (%) (Auto) , Monocytes (%) (Auto) , Eosinophils (%) (Auto) , Basophils (%) (Auto) , Differential Total Cells Counted 100, Neutrophils % ( Manual) 84H, Lymphocytes % (Manual) 10L, Monocytes % (Manual) 3, Eosinophils % ( Manual) 3, Basophils % (Manual) 0, Band Neutrophils 0, Platelet Estimate DecreasedL, Platelet Morphology Normal, Red Blood Cell Morphology Normal, Sodium Level 134L, Potassium Level 3.8, Chloride Level 99, Carbon Dioxide Level 22, Anion Gap 13, Blood Urea Nitrogen 33H, Creatinine 1.6H, Estimat Glomerular Filtration Rate 52.8, Glucose Level 117H, Calcium Level 8.0L, Total Bilirubin 2.3H, Direct Bilirubin 1.2H, Aspartate Amino Transf (AST/SGOT) 101H, Alanine Aminotransferase (ALT/SGPT) 32, Alkaline Phosphatase 163H, Total Protein 6.3L, Albumin 1.6L, Globulin 4.7, Albumin/Globulin Ratio 0.3L Height (Feet): 6 Height (Inches): 2.00 Weight (Pounds): 232 General Appearance: alert EENT: TMs normal Neck: normal alignment Cardiovascular: regular rhythm Respiratory/Chest: lungs clear Abdomen: non tender Extremities: non-tender Edema: 1+ Leg (L), 1+ Leg (R) Draren Snyder October 03, 2016 23:50
[2016-10-04 00:20] VITALS: BP 115/74
[2016-10-04 04:12] VITALS: BP 112/71
[2016-10-04 07:24] LABS: MEAN CORPUSCULAR HGB CONC 32.6 G/DL (32.0-36.0); MEAN CORPUSCULAR VOLUME 104 FL (80-99); MEAN PLATELET VOLUME 6.9 FL (6.5-10.1); PLATELET COUNT 52 K/UL (150-450); RED BLOOD COUNT 2.49 M/UL (4.70-6.10); RED CELL DISTRIBUTION WIDTH 20.6 % (11.6-14.8); WHITE BLOOD COUNT 3.5 K/UL (4.8-10.8)
[2016-10-04 07:51] LABS: ALBUMIN/GLOBULIN RATIO 0.2 (1.0-2.7); CALCIUM 8.1 mg/dL (8.6-10.2); CREATININE 1.6 mg/dL (0.7-1.2); GLOMERULAR FILTRATION RATE 52.8 mL/min (>60); POTASSIUM 4.1 mEQ/L (3.4-4.9); TOTAL PROTEIN 6.6 g/dL (6.6-8.7)
[2016-10-04 08:02] VITALS: BP 129/81
[2016-10-04 08:39] LABS: BILIRUBIN,DIRECT 1.2 mg/dL (0.1-0.3)
--- NOTE | 2016-10-04 09:05 | General Progress Note ---
Assessment/Plan Assessment/Plan (1) Dementia (2) S/p Mechanical fall (3) Left hip Fracture (4) Left hip pain (5) S/p Left hip hemiarthroplasty Patient will be continued on Wesley as needed. Parameters continued. D/w Dr. Donald and he concurred. Subjective Date patient seen: October 04, 2016 Time patient seen: 08:00 - am Allergies: Coded Allergies: No Known Allergies (Unverified , 09/06/16) Subjective REVIEW OF SYSTEMS: Complaining of left hip pain SUBJECTIVE: Pain has been unchanged and is severe with movement. He says that the Wesley continues to reduce his pain to tolerable levels. Objective Last 24 Hour Vital Signs Date Time Temp Pulse Resp B/P Pulse Ox O2 Delivery O2 Flow Rate FiO2 10/04/16 08:02 98.4 95 19 129/81 100 Nasal Cannula 2.0 10/04/16 04:12 98.1 72 20 112/71 100 Room Air 10/04/16 00:20 97.3 93 18 115/74 100 Room Air 10/03/16 21:22 98.1 88 20 120/80 Room Air 10/03/16 21:20 98.1 88 20 120/80 100 Room Air 10/03/16 20:20 98.1 88 20 120/80 100 Room Air 10/03/16 19:05 100 Nasal Cannula 2.0 28 10/03/16 19:03 Nasal Cannula 2.0 28 10/03/16 17:35 84 120/61 10/03/16 15:44 98.0 95 20 113/63 99 Nasal Cannula 10/03/16 11:36 97.7 97 20 112/69 99 Nasal Cannula 2.0 10/03/16 09:45 100 Nasal Cannula 2.0 28 10/03/16 09:45 Nasal Cannula 2.0 28 Intake and Output 10/03/16 10/04/16 19:00 07:00 Intake Total 600 ml 300 ml Output Total 500 ml Balance 100 ml 300 ml Intake Oral 600 ml 300 ml Output Urine Total 500 ml Laboratory Tests 10/04/16 05:00: White Blood Count 3.5L, Red Blood Count 2.49L, Hemoglobin 8.4L, Hematocrit 25.9L , Mean Corpuscular Volume 104H, Mean Corpuscular Hemoglobin 34.0H, Mean Corpuscular Hemoglobin Concent 32.6, Red Cell Distribution Width 20.6H, Platelet Count 52L, Mean Platelet Volume 6.9, Neutrophils (%) (Auto) , Lymphocytes (%) (Auto) , Monocytes (%) (Auto) , Eosinophils (%) (Auto) , Basophils (%) (Auto) , Neutrophils % (Manual) [Pending], Lymphocytes % (Manual) [Pending], Platelet Estimate [Pending], Platelet Morphology [Pending], Sodium Level 134L, Potassium Level 4.1, Chloride Level 99, Carbon Dioxide Level 23, Anion Gap 12, Blood Urea Nitrogen 32H, Creatinine 1.6H, Estimat Glomerular Filtration Rate 52.8, Glucose Level 115H, Calcium Level 8.1L, Total Bilirubin 2.3H, Direct Bilirubin 1.2H, Aspartate Amino Transf (AST/SGOT) 95H, Alanine Aminotransferase (ALT/SGPT) 31, Alkaline Phosphatase 164H, Total Protein 6.6, Albumin 1.5L, Globulin 5.1, Albumin/Globulin Ratio 0.2L Height (Feet): 6 Height (Inches): 2.00 Weight (Pounds): 232 Objective GENERAL: Alert and awake. HEENT: PERRLA. NECK: Range of motion is full in all directions. No tenderness to paracervical muscles. LUNGS: Clear. HEART: Regular. ABDOMEN: Distended. BACK: Range of motion is decreased in flexion and extension. EXTREMITIES: Lower extremity motion is decreased over the left hip. Tenderness to palpation. SLOAN PACKER October 04, 2016 09:05
--- NOTE | 2016-10-04 09:46 | General Progress Note ---
Assessment/Plan Status: stable Assessment/Plan 1. Shock: ddx, cardiogenic secondary to arrythmai, 2. Bradycardia-junctional rhythm, 3.Bleeding diatheses from the postoperative left-sided hip area. 4. Left-sided hip fracture, status post complicated course of infection and revision surgery in [facility] in August 2016. 5. Acute anemia. 6. Anxiety and depression. 5. Dementia. 6. Alcoholic cirrhosis. 7. Chronic Hep-C 7. Hypercoagulable state. 8. Iron deficiency anemia. 9. Pain management. 11. A/C Renal failure 12. Ascites: S/p paracenthesis twice 10. Gastrointestinal and deep vein thrombosis prophylaxis. Plan: Ok to resume Alpha bladimir and proceed with Voiding trial Ok to continue ASA, per [facility] Notes are reviewed Poor Prognosis, but stable at this time Ascites worsening Failed urination off Carter Ok to Dc to facility, once bed available Subjective ROS Limited/Unobtainable: Yes Allergies: Coded Allergies: No Known Allergies (Unverified , 09/06/16) Objective Last 24 Hour Vital Signs Date Time Temp Pulse Resp B/P Pulse Ox O2 Delivery O2 Flow Rate FiO2 10/04/16 08:02 98.4 95 19 129/81 100 Nasal Cannula 2.0 10/04/16 04:12 98.1 72 20 112/71 100 Room Air 10/04/16 00:20 97.3 93 18 115/74 100 Room Air 10/03/16 21:22 98.1 88 20 120/80 Room Air 10/03/16 21:20 98.1 88 20 120/80 100 Room Air 10/03/16 20:20 98.1 88 20 120/80 100 Room Air 10/03/16 19:05 100 Nasal Cannula 2.0 28 10/03/16 19:03 Nasal Cannula 2.0 28 10/03/16 17:35 84 120/61 10/03/16 15:44 98.0 95 20 113/63 99 Nasal Cannula 10/03/16 11:36 97.7 97 20 112/69 99 Nasal Cannula 2.0 10/03/16 09:45 100 Nasal Cannula 2.0 28 10/03/16 09:45 Nasal Cannula 2.0 28 Intake and Output 10/03/16 10/04/16 19:00 07:00 Intake Total 600 ml 300 ml Output Total 500 ml Balance 100 ml 300 ml Intake Oral 600 ml 300 ml Output Urine Total 500 ml Laboratory Tests 10/04/16 05:00: White Blood Count 3.5L, Red Blood Count 2.49L, Hemoglobin 8.4L, Hematocrit 25.9L , Mean Corpuscular Volume 104H, Mean Corpuscular Hemoglobin 34.0H, Mean Corpuscular Hemoglobin Concent 32.6, Red Cell Distribution Width 20.6H, Platelet Count 52L, Mean Platelet Volume 6.9, Neutrophils (%) (Auto) , Lymphocytes (%) (Auto) , Monocytes (%) (Auto) , Eosinophils (%) (Auto) , Basophils (%) (Auto) , Neutrophils % (Manual) [Pending], Lymphocytes % (Manual) [Pending], Platelet Estimate [Pending], Platelet Morphology [Pending], Sodium Level 134L, Potassium Level 4.1, Chloride Level 99, Carbon Dioxide Level 23, Anion Gap 12, Blood Urea Nitrogen 32H, Creatinine 1.6H, Estimat Glomerular Filtration Rate 52.8, Glucose Level 115H, Calcium Level 8.1L, Total Bilirubin 2.3H, Direct Bilirubin 1.2H, Aspartate Amino Transf (AST/SGOT) 95H, Alanine Aminotransferase (ALT/SGPT) 31, Alkaline Phosphatase 164H, Total Protein 6.6, Albumin 1.5L, Globulin 5.1, Albumin/Globulin Ratio 0.2L Height (Feet): 6 Height (Inches): 2.00 Weight (Pounds): 232 General Appearance: no apparent distress EENT: PERRL/EOMI Neck: supple Cardiovascular: normal rate Respiratory/Chest: lungs clear Abdomen: distended, other - protuberant , positive shifting dullness Extremities: non-tender Neurologic: disoriented, other - demened at baseline Shanita Oden MD October 04, 2016 09:46
--- NOTE | 2016-10-04 09:47 | Urology Progress Note ---
Assessment/Plan Assessment/Plan 1. Urinary retention. 2. Benign prostatic hypertrophy. 3. Possible neurogenic bladder. 4. Hematuria. 5. Pyuria. 6. Proteinuria. 7. Renal insufficiency which is acute on chronic. weeks indwelling cont flomax BID, proscar resumed monitor renal fxn repeat voiding trial later cysto later Subjective Allergies: Coded Allergies: No Known Allergies (Unverified , 09/06/16) Subjective all noted Objective Last 24 Hour Vital Signs Date Time Temp Pulse Resp B/P Pulse Ox O2 Delivery O2 Flow Rate FiO2 10/04/16 08:02 98.4 95 19 129/81 100 Nasal Cannula 2.0 10/04/16 04:12 98.1 72 20 112/71 100 Room Air 10/04/16 00:20 97.3 93 18 115/74 100 Room Air 10/03/16 21:22 98.1 88 20 120/80 Room Air 10/03/16 21:20 98.1 88 20 120/80 100 Room Air 10/03/16 20:20 98.1 88 20 120/80 100 Room Air 10/03/16 19:05 100 Nasal Cannula 2.0 28 10/03/16 19:03 Nasal Cannula 2.0 28 10/03/16 17:35 84 120/61 10/03/16 15:44 98.0 95 20 113/63 99 Nasal Cannula 10/03/16 11:36 97.7 97 20 112/69 99 Nasal Cannula 2.0 Intake and Output 10/03/16 10/04/16 19:00 07:00 Intake Total 600 ml 300 ml Output Total 500 ml Balance 100 ml 300 ml Intake Oral 600 ml 300 ml Output Urine Total 500 ml Microbiology Date/Time Source Procedure Growth Status 09/25/16 21:05 Blood Blood Culture - Final NO GROWTH AFTER 5 DAYS Complete 09/24/16 02:35 Nasal Nares MRSA Culture - Final NO METHICILLIN RESISTANT STAPH AUREUS... Complete 09/25/16 21:00 Urine,Clean Catch Urine Culture - Final NO GROWTH AFTER 48 HOURS Complete 09/26/16 14:15 Abdominal Fluid Gram Stain - Final Complete 09/26/16 14:15 Abdominal Fluid Body Fluid Culture - Final NO GROWTH Complete Current Medications Medications (Trade) Dose Ordered Sig/Carolynn Route PRN Reason Start Time Stop Time Status Last Admin Dose Admin Acetaminophen (Tylenol) 650 mg Q4H PRN ORAL Mild Pain/Temp > 100.5 09/28/16 23:00 10/28/16 22:59 Acetaminophen/ Hydrocodone Bitart ([place] 5/325) 1 tab Q4H PRN ORAL Moderate Pain (Pain Scale 4-6) 10/03/16 10:00 10/10/16 09:59 Ascorbic Acid (Vitamin C) 500 mg DAILY ORAL 09/29/16 09:00 10/29/16 08:59 10/03/16 08:36 Bisacodyl (Dulcolax) 10 mg DAILYPRN PRN RECTAL Constipation 09/29/16 19:00 10/29/16 18:59 Docusate Sodium (Colace) 100 mg TWICE A DAY ORAL 09/29/16 09:00 10/29/16 08:59 10/03/16 17:43 Ergocalciferol (Drisdol) 50,000 intlu MoTh ORAL 09/30/16 09:00 10/30/16 08:59 10/03/16 08:37 Finasteride (Proscar) 5 mg DAILY ORAL 09/29/16 14:00 10/29/16 13:59 10/02/16 08:42 Lactulose (Cephulac) 30 gm BID ORAL 09/29/16 09:00 10/29/16 08:59 10/03/16 17:43 Midodrine (Pro-Amatine) 2.5 mg THREE TIMES A DAY ORAL 09/30/16 13:00 10/30/16 12:59 10/02/16 18:05 Nystatin (Nystop Powder) 1 applic THREE TIMES A DAY TOPIC 09/30/16 18:00 10/30/16 17:59 10/03/16 17:44 Pantoprazole (Protonix) 40 mg EVERY 12 HOURS ORAL 09/30/16 21:00 10/30/16 20:59 10/02/16 21:02 Rifaximin (Xifaxan) 550 mg TWICE A DAY ORAL 09/29/16 09:00 10/06/16 08:59 10/03/16 17:44 Sodium Chloride (NS) 550 ml @ 0 mls/hr Q0M PRN IV PRN SBP < 95 09/28/16 21:30 10/28/16 21:29 Tamsulosin HCl (Flomax) 0.4 mg BID ORAL 10/02/16 09:00 11/01/16 08:59 10/03/16 17:43 Laboratory Tests 10/04/16 05:00: White Blood Count 3.5L, Red Blood Count 2.49L, Hemoglobin 8.4L, Hematocrit 25.9L , Mean Corpuscular Volume 104H, Mean Corpuscular Hemoglobin 34.0H, Mean Corpuscular Hemoglobin Concent 32.6, Red Cell Distribution Width 20.6H, Platelet Count 52L, Mean Platelet Volume 6.9, Neutrophils (%) (Auto) , Lymphocytes (%) (Auto) , Monocytes (%) (Auto) , Eosinophils (%) (Auto) , Basophils (%) (Auto) , Neutrophils % (Manual) [Pending], Lymphocytes % (Manual) [Pending], Platelet Estimate [Pending], Platelet Morphology [Pending], Sodium Level 134L, Potassium Level 4.1, Chloride Level 99, Carbon Dioxide Level 23, Anion Gap 12, Blood Urea Nitrogen 32H, Creatinine 1.6H, Estimat Glomerular Filtration Rate 52.8, Glucose Level 115H, Calcium Level 8.1L, Total Bilirubin 2.3H, Direct Bilirubin 1.2H, Aspartate Amino Transf (AST/SGOT) 95H, Alanine Aminotransferase (ALT/SGPT) 31, Alkaline Phosphatase 164H, Total Protein 6.6, Albumin 1.5L, Globulin 5.1, Albumin/Globulin Ratio 0.2L Height (Feet): 6 Height (Inches): 2.00 Weight (Pounds): 232 Objective exam stable MESHA TRUONG October 04, 2016 09:47
[2016-10-04 10:13] LABS: ANISOCYTOSIS 2+; BAND NEUTROPHILS % (MANUAL) 0 % (0-8); BASOPHILS % (MANUAL) 0 % (0-2); EOSINOPHILS % (MANUAL) 0 % (0-3); HYPOCHROMASIA 1+; LYMPHOCYTES % (MANUAL) 15 % (20-45); MACROCYTES 1+; NEUTROPHILS % (MANUAL) 81 % (45-75); PLATELET ESTIMATE DECREASED; PLATELET MORPHOLOGY NORMAL; TOTAL CELLS COUNTED 100
[2016-10-04] MEDS: Tamsulosin 0.4mg cap ORAL SCH (10:18)
[2016-10-04] MEDS: Docusate 100mg cap ORAL SCH (10:18)
[2016-10-04] MEDS: Rifaximin 550mg tab ORAL SCH (10:19)
[2016-10-04] MEDS: Ascorbic Acid 500mg tab ORAL SCH (10:19)
[2016-10-04] MEDS: Nystatin Powder 100,000 units/gm 15gm TOPIC SCH (10:19)
[2016-10-04] MEDS: Lactulose 20gm/30ml UDC ORAL SCH (10:21)
[2016-10-04 10:28] VITALS: BP 133/82
--- NOTE | 2016-10-04 10:47 | GI Progress Note ---
Assessment/Plan Problems: (1) Acute hepatic encephalopathy ICD Codes: K72.00 - Acute and subacute hepatic failure without coma SNOMED: 44694443 (2) LFT elevation ICD Codes: R94.5 - Abnormal results of liver function studies SNOMED: 961076102 (3) History of alcoholism ICD Codes: F10.21 - Alcohol dependence, in remission SNOMED: 581686806 (4) Elevated CEA ICD Codes: R97.0 - Elevated carcinoembryonic antigen [CEA] SNOMED: 40690280, 976438676 (5) Anemia ICD Codes: D64.9 - Anemia, unspecified SNOMED: 590477803 Qualifiers: Qualified Codes: D64.9 - Anemia, unspecified (6) Dehydration ICD Codes: E86.0 - Dehydration SNOMED: 99893856 Status: stable, unchanged Status Narrative Discussed with Dr. Bojorquez. Assessment/Plan S/P EGD - FINDINGS: 1. Severe portal hypertensive gastropathy. Status post biopsy. >> unremarkable 2. Distal esophageal varices grade I/II without any stigmata. ok for DC per GI standpoint >> recommend outpatient colonoscopy >> refused to have as inpatient, wants to leave. Hep C positive elevated CEA >> 9.6 s/p paracentesis >> 5L yield >> SBP negative ammonia WNL >> cont lactulose + Xifaxan stable H&H OB stool pending ppi dc propranolol fu labs PT evaluation The patient was seen and examined at bedside and all new and available data was reviewed in the patients chart. I agree with the above findings, impression and plan. (Patient seen earlier today. Signature stamp does not reflect patient encounter time.). -Trevor Bojorquez MD Subjective Subjective wants to get up abdominal distention Objective Last 24 Hour Vital Signs Date Time Temp Pulse Resp B/P Pulse Ox O2 Delivery O2 Flow Rate FiO2 10/04/16 10:28 94 133/82 10/04/16 08:02 98.4 95 19 129/81 100 Nasal Cannula 2.0 10/04/16 04:12 98.1 72 20 112/71 100 Room Air 10/04/16 00:20 97.3 93 18 115/74 100 Room Air 10/03/16 21:22 98.1 88 20 120/80 Room Air 10/03/16 21:20 98.1 88 20 120/80 100 Room Air 10/03/16 20:20 98.1 88 20 120/80 100 Room Air 10/03/16 19:05 100 Nasal Cannula 2.0 28 10/03/16 19:03 Nasal Cannula 2.0 28 10/03/16 17:35 84 120/61 10/03/16 15:44 98.0 95 20 113/63 99 Nasal Cannula 10/03/16 11:36 97.7 97 20 112/69 99 Nasal Cannula 2.0 Intake and Output 10/03/16 10/04/16 19:00 07:00 Intake Total 600 ml 300 ml Output Total 500 ml Balance 100 ml 300 ml Intake Oral 600 ml 300 ml Output Urine Total 500 ml Laboratory Tests Test 10/04/16 05:00 White Blood Count 3.5 K/UL (4.8-10.8) L Red Blood Count 2.49 M/UL (4.70-6.10) L Hemoglobin 8.4 G/DL (14.2-18.0) L Hematocrit 25.9 % (42.0-52.0) L Mean Corpuscular Volume 104 FL (80-99) H Mean Corpuscular Hemoglobin 34.0 PG (27.0-31.0) H Mean Corpuscular Hemoglobin Concent 32.6 G/DL (32.0-36.0) Red Cell Distribution Width 20.6 % (11.6-14.8) H Platelet Count 52 K/UL (150-450) L Mean Platelet Volume 6.9 FL (6.5-10.1) Neutrophils (%) (Auto) % (45.0-75.0) Lymphocytes (%) (Auto) % (20.0-45.0) Monocytes (%) (Auto) % (1.0-10.0) Eosinophils (%) (Auto) % (0.0-3.0) Basophils (%) (Auto) % (0.0-2.0) Differential Total Cells Counted 100 Neutrophils % (Manual) 81 % (45-75) H Lymphocytes % (Manual) 15 % (20-45) L Monocytes % (Manual) 4 % (1-10) Eosinophils % (Manual) 0 % (0-3) Basophils % (Manual) 0 % (0-2) Band Neutrophils 0 % (0-8) Platelet Estimate Decreased L Platelet Morphology Normal Hypochromasia 1+ Anisocytosis 2+ Macrocytosis 1+ Sodium Level 134 mEQ/L (135-145) L Potassium Level 4.1 mEQ/L (3.4-4.9) Chloride Level 99 mEQ/L (98-107) Carbon Dioxide Level 23 mEQ/L (20-30) Anion Gap 12 (5-15) Blood Urea Nitrogen 32 mg/dL (7-23) H Creatinine 1.6 mg/dL (0.7-1.2) H Estimat Glomerular Filtration Rate 52.8 mL/min (>60) Glucose Level 115 mg/dL (74-106) H Calcium Level 8.1 mg/dL (8.6-10.2) L Total Bilirubin 2.3 mg/dL (0.0-1.2) H Direct Bilirubin 1.2 mg/dL (0.1-0.3) H Aspartate Amino Transf (AST/SGOT) 95 U/L (5-40) H Alanine Aminotransferase (ALT/SGPT) 31 U/L (3-41) Alkaline Phosphatase 164 U/L (40-129) H Total Protein 6.6 g/dL (6.6-8.7) Albumin 1.5 g/dL (3.5-5.2) L Globulin 5.1 g/dL Albumin/Globulin Ratio 0.2 (1.0-2.7) L Height (Feet): 6 Height (Inches): 2.00 Weight (Pounds): 232 General Appearance: no apparent distress, alert Cardiovascular: normal rate Respiratory/Chest: no respiratory distress Abdominal Exam: distended, hepatomegaly, ascites Bren Palacios N.PSong October 04, 2016 10:47 TREVOR BOJORQUEZ October 07, 2016 12:25
--- NOTE | 2016-10-04 10:53 | General Progress Note ---
Assessment/Plan Assessment/Plan IMPRESSION: 1. Thrombocytopenia secondary to alcoholic liver cirrhosis and hepatitis C. hold asa, would hold off on coumadin and/or heparin sq given low platelets. Also patient has DIC as haptoglobin is <29, monitor closely, given sepsis. Has a hx of hepatitis C and 5L removed via para on admission. Current platelet count 40-70k 2. Alcoholic liver cirrhosis. 3. Anemia of bleeding diathesis from hip 4. Coagulopathy secondary to alcoholic liver cirrhosis 5. Acute left hip periprosthetic fracture s/p repair 6. History of alcohol abuse. 7. Hepatitis C. 8. Psychosis. 9. Failure to thrive. RECOMMENDATIONS: -. Prior admission and heme workup has been reviewed -. Ok to continue asa, would hold off on coumadin and/or heparin sq -. Watch coagulopathy. -. Gi service followup -. Vitamin K prn if bleeding -. Reviewed Pulm/CC notes -. Appreciate consultation! Subjective Constitutional: Reports: no symptoms HEENT: Reports: no symptoms Cardiovascular: Reports: no symptoms Respiratory: Reports: no symptoms Gastrointestinal/Abdominal: Reports: no symptoms Neurologic/Psychiatric: Reports: no symptoms Hematologic/Lymphatic: Reports: anemia Allergies: Coded Allergies: No Known Allergies (Unverified , 09/06/16) Subjective Monitoring counts closely, no events noted overnight Objective Last 24 Hour Vital Signs Date Time Temp Pulse Resp B/P Pulse Ox O2 Delivery O2 Flow Rate FiO2 10/04/16 10:28 94 133/82 10/04/16 08:02 98.4 95 19 129/81 100 Nasal Cannula 2.0 10/04/16 04:12 98.1 72 20 112/71 100 Room Air 10/04/16 00:20 97.3 93 18 115/74 100 Room Air 10/03/16 21:22 98.1 88 20 120/80 Room Air 10/03/16 21:20 98.1 88 20 120/80 100 Room Air 10/03/16 20:20 98.1 88 20 120/80 100 Room Air 10/03/16 19:05 100 Nasal Cannula 2.0 28 10/03/16 19:03 Nasal Cannula 2.0 28 10/03/16 17:35 84 120/61 10/03/16 15:44 98.0 95 20 113/63 99 Nasal Cannula 10/03/16 11:36 97.7 97 20 112/69 99 Nasal Cannula 2.0 Intake and Output 10/03/16 10/04/16 19:00 07:00 Intake Total 600 ml 300 ml Output Total 500 ml Balance 100 ml 300 ml Intake Oral 600 ml 300 ml Output Urine Total 500 ml Laboratory Tests 10/04/16 05:00: White Blood Count 3.5L, Red Blood Count 2.49L, Hemoglobin 8.4L, Hematocrit 25.9L , Mean Corpuscular Volume 104H, Mean Corpuscular Hemoglobin 34.0H, Mean Corpuscular Hemoglobin Concent 32.6, Red Cell Distribution Width 20.6H, Platelet Count 52L, Mean Platelet Volume 6.9, Neutrophils (%) (Auto) , Lymphocytes (%) (Auto) , Monocytes (%) (Auto) , Eosinophils (%) (Auto) , Basophils (%) (Auto) , Differential Total Cells Counted 100, Neutrophils % ( Manual) 81H, Lymphocytes % (Manual) 15L, Monocytes % (Manual) 4, Eosinophils % ( Manual) 0, Basophils % (Manual) 0, Band Neutrophils 0, Platelet Estimate DecreasedL, Platelet Morphology Normal, Hypochromasia 1+, Anisocytosis 2+, Macrocytosis 1+, Sodium Level 134L, Potassium Level 4.1, Chloride Level 99, Carbon Dioxide Level 23, Anion Gap 12, Blood Urea Nitrogen 32H, Creatinine 1.6H , Estimat Glomerular Filtration Rate 52.8, Glucose Level 115H, Calcium Level 8.1L, Total Bilirubin 2.3H, Direct Bilirubin 1.2H, Aspartate Amino Transf (AST/ SGOT) 95H, Alanine Aminotransferase (ALT/SGPT) 31, Alkaline Phosphatase 164H, Total Protein 6.6, Albumin 1.5L, Globulin 5.1, Albumin/Globulin Ratio 0.2L Height (Feet): 6 Height (Inches): 2.00 Weight (Pounds): 232 General Appearance: no apparent distress EENT: TMs normal Neck: supple Cardiovascular: regular rhythm Respiratory/Chest: no respiratory distress Abdomen: non tender Extremities: non-tender Edema: no edema noted Leg (L), no edema noted Leg (R) Neurologic: alert Skin: normal pigmentation Darren Snyder October 04, 2016 10:53
[2016-10-04] MEDS ORDERED: VITAMIN D250000 UNI1 ORAL (11:14)
[2016-10-04] MEDS ORDERED: PROSCAR5 MG ORAL (11:14)
[2016-10-04] MEDS ORDERED: NYSTATIN15 GM TOPIC (11:15)
[2016-10-04] MEDS ORDERED: MIDODRINE HCL2.5 MG ORAL (11:15)
[2016-10-04] MEDS ORDERED: PROTONIX40 MG ORAL (11:16)
[2016-10-04] MEDS ORDERED: TAMSULOSIN HCL0.4 MG ORAL (11:17)
--- NOTE | 2016-10-04 12:23 | General Progress Note ---
Assessment/Plan Status: stable Status Narrative Cr 1.6 un changed Assessment/Plan status; Acute renal failure- Severe Anemia HyperKalemia- resolved Dehydration Proteinuria UTI High INR others: 1. s/p Status post mechanical fall. 2. Left periprosthetic femoral fracture. 3. Alcoholic liver cirrhosis. 4. s/p Elevated transaminase. 5. 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 6. Elevated tumor markers (CEA, AFP/alpha-fetoprotein). 7. Acute hepatic encephalopathy. 8. Hypertension. 9. Dementia. 10. Psychosis. 11. History of hemiarthroplasty, left hip, recent. 12. Hepatitis C. 13. History of alcohol abuse. 14. Anemia of chronic disease. 15. Thrombocytopenia, secondary to alcohol abuse. Plan; Transfuse as needed down dose Midodrine- hold mind altering meds- antibiotics - avoid nephrotoxics urine studies monitor renal parameters Tap Ascitis PRN per orders Subjective ROS Limited/Unobtainable: No Allergies: Coded Allergies: No Known Allergies (Unverified , 09/06/16) Objective Last 24 Hour Vital Signs Date Time Temp Pulse Resp B/P Pulse Ox O2 Delivery O2 Flow Rate FiO2 10/04/16 10:28 94 133/82 10/04/16 08:02 98.4 95 19 129/81 100 Nasal Cannula 2.0 10/04/16 04:12 98.1 72 20 112/71 100 Room Air 10/04/16 00:20 97.3 93 18 115/74 100 Room Air 10/03/16 21:22 98.1 88 20 120/80 Room Air 10/03/16 21:20 98.1 88 20 120/80 100 Room Air 10/03/16 20:20 98.1 88 20 120/80 100 Room Air 10/03/16 19:05 100 Nasal Cannula 2.0 28 10/03/16 19:03 Nasal Cannula 2.0 28 10/03/16 17:35 84 120/61 10/03/16 15:44 98.0 95 20 113/63 99 Nasal Cannula Intake and Output 10/03/16 10/04/16 19:00 07:00 Intake Total 600 ml 300 ml Output Total 500 ml Balance 100 ml 300 ml Intake Oral 600 ml 300 ml Output Urine Total 500 ml Laboratory Tests 10/04/16 05:00: White Blood Count 3.5L, Red Blood Count 2.49L, Hemoglobin 8.4L, Hematocrit 25.9L , Mean Corpuscular Volume 104H, Mean Corpuscular Hemoglobin 34.0H, Mean Corpuscular Hemoglobin Concent 32.6, Red Cell Distribution Width 20.6H, Platelet Count 52L, Mean Platelet Volume 6.9, Neutrophils (%) (Auto) , Lymphocytes (%) (Auto) , Monocytes (%) (Auto) , Eosinophils (%) (Auto) , Basophils (%) (Auto) , Differential Total Cells Counted 100, Neutrophils % ( Manual) 81H, Lymphocytes % (Manual) 15L, Monocytes % (Manual) 4, Eosinophils % ( Manual) 0, Basophils % (Manual) 0, Band Neutrophils 0, Platelet Estimate DecreasedL, Platelet Morphology Normal, Hypochromasia 1+, Anisocytosis 2+, Macrocytosis 1+, Sodium Level 134L, Potassium Level 4.1, Chloride Level 99, Carbon Dioxide Level 23, Anion Gap 12, Blood Urea Nitrogen 32H, Creatinine 1.6H , Estimat Glomerular Filtration Rate 52.8, Glucose Level 115H, Calcium Level 8.1L, Total Bilirubin 2.3H, Direct Bilirubin 1.2H, Aspartate Amino Transf (AST/ SGOT) 95H, Alanine Aminotransferase (ALT/SGPT) 31, Alkaline Phosphatase 164H, Total Protein 6.6, Albumin 1.5L, Globulin 5.1, Albumin/Globulin Ratio 0.2L Height (Feet): 6 Height (Inches): 2.00 Weight (Pounds): 232 General Appearance: no apparent distress, lethargic Respiratory/Chest: decreased breath sounds Objective no change in PE PRINCESS PALACIO October 04, 2016 12:23
--- NOTE | 2016-10-04 15:12 | Pulmonology Progress Note ---
Assessment/Plan Problems: (1) Acute hepatic encephalopathy (2) EDITH (acute kidney injury) (3) End-stage liver disease (4) Coagulopathy (5) Elevated CEA (6) Anemia Assessment/Plan f/u ammonia level h/h stable endoscopy showed esophageal varrices increased CEA and shazia fetoprotein showing some kind of malignancy off antibiotics consider DNR and comfort care pt satisfies Medicare criteria for hospice cane pt singed the consent for Hospice dc to [place] today Subjective ROS Limited/Unobtainable: No Interval Events: comfortable Allergies: Coded Allergies: No Known Allergies (Unverified , 09/06/16) Objective Last 24 Hour Vital Signs Date Time Temp Pulse Resp B/P Pulse Ox O2 Delivery O2 Flow Rate FiO2 10/04/16 10:28 94 133/82 10/04/16 08:02 98.4 95 19 129/81 100 Nasal Cannula 2.0 10/04/16 04:12 98.1 72 20 112/71 100 Room Air 10/04/16 00:20 97.3 93 18 115/74 100 Room Air 10/03/16 21:22 98.1 88 20 120/80 Room Air 10/03/16 21:20 98.1 88 20 120/80 100 Room Air 10/03/16 20:20 98.1 88 20 120/80 100 Room Air 10/03/16 19:05 100 Nasal Cannula 2.0 28 10/03/16 19:03 Nasal Cannula 2.0 28 10/03/16 17:35 84 120/61 10/03/16 15:44 98.0 95 20 113/63 99 Nasal Cannula Intake and Output 10/03/16 10/04/16 19:00 07:00 Intake Total 600 ml 300 ml Output Total 500 ml Balance 100 ml 300 ml Intake Oral 600 ml 300 ml Output Urine Total 500 ml Objective General Appearance: cachectic HEENT: normocephalic Respiratory/Chest: chest wall non-tender, lungs clear Cardiovascular: normal peripheral pulses, regular rhythm Abdomen: normal bowel sounds, soft, non tender, distended Genitourinary: normal external genitalia Extremities: no cyanosis, no clubbing, positive edema Skin: no rash Laboratory Tests 10/04/16 05:00: White Blood Count 3.5L, Red Blood Count 2.49L, Hemoglobin 8.4L, Hematocrit 25.9L , Mean Corpuscular Volume 104H, Mean Corpuscular Hemoglobin 34.0H, Mean Corpuscular Hemoglobin Concent 32.6, Red Cell Distribution Width 20.6H, Platelet Count 52L, Mean Platelet Volume 6.9, Neutrophils (%) (Auto) , Lymphocytes (%) (Auto) , Monocytes (%) (Auto) , Eosinophils (%) (Auto) , Basophils (%) (Auto) , Differential Total Cells Counted 100, Neutrophils % ( Manual) 81H, Lymphocytes % (Manual) 15L, Monocytes % (Manual) 4, Eosinophils % ( Manual) 0, Basophils % (Manual) 0, Band Neutrophils 0, Platelet Estimate DecreasedL, Platelet Morphology Normal, Hypochromasia 1+, Anisocytosis 2+, Macrocytosis 1+, Sodium Level 134L, Potassium Level 4.1, Chloride Level 99, Carbon Dioxide Level 23, Anion Gap 12, Blood Urea Nitrogen 32H, Creatinine 1.6H , Estimat Glomerular Filtration Rate 52.8, Glucose Level 115H, Calcium Level 8.1L, Total Bilirubin 2.3H, Direct Bilirubin 1.2H, Aspartate Amino Transf (AST/ SGOT) 95H, Alanine Aminotransferase (ALT/SGPT) 31, Alkaline Phosphatase 164H, Total Protein 6.6, Albumin 1.5L, Globulin 5.1, Albumin/Globulin Ratio 0.2L Current Medications Medications (Trade) Dose Ordered Sig/Carolynn Route PRN Reason Start Time Stop Time Status Last Admin Dose Admin Acetaminophen (Tylenol) 650 mg Q4H PRN ORAL Mild Pain/Temp > 100.5 09/28/16 23:00 10/28/16 22:59 Acetaminophen/ Hydrocodone Bitart ([place] 5/325) 1 tab Q4H PRN ORAL Moderate Pain (Pain Scale 4-6) 10/03/16 10:00 10/10/16 09:59 Ascorbic Acid (Vitamin C) 500 mg DAILY ORAL 09/29/16 09:00 10/29/16 08:59 10/04/16 10:19 Bisacodyl (Dulcolax) 10 mg DAILYPRN PRN RECTAL Constipation 09/29/16 19:00 10/29/16 18:59 Docusate Sodium (Colace) 100 mg TWICE A DAY ORAL 09/29/16 09:00 10/29/16 08:59 10/04/16 10:18 Ergocalciferol (Drisdol) 50,000 intlu MoTh ORAL 09/30/16 09:00 10/30/16 08:59 10/03/16 08:37 Finasteride (Proscar) 5 mg DAILY ORAL 09/29/16 14:00 10/29/16 13:59 10/04/16 10:18 Lactulose (Cephulac) 30 gm BID ORAL 09/29/16 09:00 10/29/16 08:59 10/04/16 10:21 Midodrine (Pro-Amatine) 2.5 mg THREE TIMES A DAY ORAL 09/30/16 13:00 10/30/16 12:59 10/02/16 18:05 Nystatin (Nystop Powder) 1 applic THREE TIMES A DAY TOPIC 09/30/16 18:00 10/30/16 17:59 10/04/16 10:19 Pantoprazole (Protonix) 40 mg EVERY 12 HOURS ORAL 09/30/16 21:00 10/30/16 20:59 10/04/16 10:19 Rifaximin (Xifaxan) 550 mg TWICE A DAY ORAL 09/29/16 09:00 10/06/16 08:59 10/04/16 10:19 Sodium Chloride (NS) 550 ml @ 0 mls/hr Q0M PRN IV PRN SBP < 95 09/28/16 21:30 10/28/16 21:29 Tamsulosin HCl (Flomax) 0.4 mg BID ORAL 10/02/16 09:00 11/01/16 08:59 10/04/16 10:18 CIRA KOCH October 04, 2016 15:12
--- NOTE | 2016-10-04 15:35 | Cardiology Progress Note ---
Assessment/Plan Assessment/Plan 1. Junctional rhythm, resolved in SR, transferred to med-surg unit, normal LVEF , on midodrine. 2. 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 Status post open reduction and internal fixation of left hip at [facility], not a candidate for DVT prophylaxis in view of end-stage liver disease 4. History of hypertension, now hypotensive on midodrine. Subjective Subjective No cardiac events. Not on the telemetry unit. Objective Last 24 Hour Vital Signs Date Time Temp Pulse Resp B/P Pulse Ox O2 Delivery O2 Flow Rate FiO2 10/04/16 10:28 94 133/82 10/04/16 08:02 98.4 95 19 129/81 100 Nasal Cannula 2.0 10/04/16 04:12 98.1 72 20 112/71 100 Room Air 10/04/16 00:20 97.3 93 18 115/74 100 Room Air 10/03/16 21:22 98.1 88 20 120/80 Room Air 10/03/16 21:20 98.1 88 20 120/80 100 Room Air 10/03/16 20:20 98.1 88 20 120/80 100 Room Air 10/03/16 19:05 100 Nasal Cannula 2.0 28 10/03/16 19:03 Nasal Cannula 2.0 28 10/03/16 17:35 84 120/61 10/03/16 15:44 98.0 95 20 113/63 99 Nasal Cannula Intake and Output 10/03/16 10/04/16 19:00 07:00 Intake Total 600 ml 300 ml Output Total 500 ml Balance 100 ml 300 ml Intake Oral 600 ml 300 ml Output Urine Total 500 ml 2D Echo: LVEF 65%, Mild LVH, Grade I LVDD, Mod MR, RVSP 29 mmHg Laboratory Tests Test 10/04/16 05:00 White Blood Count 3.5 K/UL (4.8-10.8) L Red Blood Count 2.49 M/UL (4.70-6.10) L Hemoglobin 8.4 G/DL (14.2-18.0) L Hematocrit 25.9 % (42.0-52.0) L Mean Corpuscular Volume 104 FL (80-99) H Mean Corpuscular Hemoglobin 34.0 PG (27.0-31.0) H Mean Corpuscular Hemoglobin Concent 32.6 G/DL (32.0-36.0) Red Cell Distribution Width 20.6 % (11.6-14.8) H Platelet Count 52 K/UL (150-450) L Mean Platelet Volume 6.9 FL (6.5-10.1) Neutrophils (%) (Auto) % (45.0-75.0) Lymphocytes (%) (Auto) % (20.0-45.0) Monocytes (%) (Auto) % (1.0-10.0) Eosinophils (%) (Auto) % (0.0-3.0) Basophils (%) (Auto) % (0.0-2.0) Differential Total Cells Counted 100 Neutrophils % (Manual) 81 % (45-75) H Lymphocytes % (Manual) 15 % (20-45) L Monocytes % (Manual) 4 % (1-10) Eosinophils % (Manual) 0 % (0-3) Basophils % (Manual) 0 % (0-2) Band Neutrophils 0 % (0-8) Platelet Estimate Decreased L Platelet Morphology Normal Hypochromasia 1+ Anisocytosis 2+ Macrocytosis 1+ Sodium Level 134 mEQ/L (135-145) L Potassium Level 4.1 mEQ/L (3.4-4.9) Chloride Level 99 mEQ/L (98-107) Carbon Dioxide Level 23 mEQ/L (20-30) Anion Gap 12 (5-15) Blood Urea Nitrogen 32 mg/dL (7-23) H Creatinine 1.6 mg/dL (0.7-1.2) H Estimat Glomerular Filtration Rate 52.8 mL/min (>60) Glucose Level 115 mg/dL (74-106) H Calcium Level 8.1 mg/dL (8.6-10.2) L Total Bilirubin 2.3 mg/dL (0.0-1.2) H Direct Bilirubin 1.2 mg/dL (0.1-0.3) H Aspartate Amino Transf (AST/SGOT) 95 U/L (5-40) H Alanine Aminotransferase (ALT/SGPT) 31 U/L (3-41) Alkaline Phosphatase 164 U/L (40-129) H Total Protein 6.6 g/dL (6.6-8.7) Albumin 1.5 g/dL (3.5-5.2) L Globulin 5.1 g/dL Albumin/Globulin Ratio 0.2 (1.0-2.7) L Objective GENERAL: The patient is a very unfortunate 66-year-old gentleman, alert and awake, in no apparent respiratory distress. HEENT: Atraumatic and normocephalic. Anicteric. Pupils are equal, round, and reactive to light and accommodation. Extraocular muscles intact. NECK: JVP is 5 cm, but no carotid bruit. Carotid upstrokes 2+ bilaterally. CARDIOVASCULAR: Normal S1 and S2. Regular rate and rhythm. A 2/6 mid systolic murmur left sternal border. PMI is at fourth intercostal space in the midclavicular line. LUNGS: Diminished breath sounds at both bases. ABDOMEN: Distended with ascites. Positive shifting dullness. EXTREMITIES: There is 1+ to 3+ edema bilaterally. ASHLEY URIBE October 04, 2016 15:34
--- NOTE | 2016-10-07 09:17 | Discharge Summary ---
Discharge Summary Hospital Course Date of Admission September 24, 2016 at 01:12 Date of Discharge October 04, 2016 at 12:05 Admitting Diagnosis anemia HPI Channing Freed is a 66 year old male who was admitted on September 24, 2016 at 01:12 for Anemia Hospital Course dc summary #[id number] Discharge Medications Continued Medications: Ergocalciferol (Vitamin D2)* (Vitamin D*) 50,000 Unit Capsule 88201 UNIT ORAL MoTh, CAP Finasteride* (Proscar*) 5 Mg Tablet 5 MG ORAL DAILY, #30 TAB 0 Refills Lactulose (Lactulose*) 20 Gm/30 Ml Solution 15 ML ORAL for hold for LBM Midodrine* (Proamatine*) 2.5 Mg Tablet 2.5 MG ORAL THREE TIMES A DAY, TAB Rifaximin* (Xifaxan*) 550 Mg Tablet 550 MG ORAL TWICE A DAY for 30 Days, MG 0 Refills Tamsulosin Hcl (Tamsulosin Hcl*) 0.4 Mg Cap.er.24h 0.4 MG ORAL BID, CAP Discharge Condition Upon Discharge: grave, stable Discharge Disposition Patient was discharged to [facility] (04) Discharge Diagnoses: Discharge Instructions Discharge Instructions Special Instructions I have been assigned to complete a D/C Summary on this account. I was not involved in the patient management Yesenia Bailey NP ([place]) October 07, 2016 09:17
--- NOTE | 2016-10-08 03:19 | Discharge Summary 2 SIG ---
DATE OF ADMISSION: 09/24/2016 DATE OF DISCHARGE: 10/04/2016 REASON FOR ADMISSION: 66-year-old male presented to the emergency room for evaluation due to the oozing from the surgical incision on the left hip. The patient status post recent left hip hemiarthroplasty two weeks ago. The patient with multiple chronic medical problems, including alcoholic liver cirrhosis, hepatitis C, and hypertension. In the emergency department, the patient was found to be anemic with hemoglobin of 7.8, hematocrit - 22.9, and INR- 2.7. Elevated total bilirubin -2.6 and direct bilirubin -1.3. BUN- 43 and creatinine- 1.5 The patient was admitted for further management. ADMITTING DIAGNOSES: 1. Bleeding diatheses from postoperative left-sided hip area. 2. Status post recent left hip hemiarthroplasty. 3. Acute anemia. 4. Alcoholic liver cirrhosis. 5. Hypercoagulability. 6. Dehydration. 7. Acute renal failure on chronic renal insufficiency. HOSPITAL COURSE: The patient was admitted. GI consult was requested along with orthopedic consult. Orthopedic surgeon recommended to monitor drainage from the wound, wound care with dressing changes b.i.d. Continue aspirin for DVT prophylaxis. Orthopedic surgeon also stated that if no resolution of drainage, the patient might need incision and drainage for possible subcutaneous or subfascial seroma. Drainage improved and no need for surgical intervention at this time. Gastrointestinal specialist seen and evaluated the patient. The patient undergone paracentesis on 09/25/2016, which yielded 5 liters of ascitic fluid. Culture of ascitic fluid was negative. ID doctor followed. Blood culture negative. Urine culture negative. Ascitic fluid culture negative. The patient was monitored off antibiotics. Initially, when ID seen and evaluated the patient, he stated that he doubted spontaneous bacterial peritonitis , and indeed ascitic fluid was negative. The patient was afebrile. No leukocytosis, off antibiotics. The patient developed a junctional rhythm on monitor and blood pressure was low. The patient was transferred to ICU for dopamine drip. All psychotropic and alpha blockers were placed on hold. Cardiology consult was requested. Card Grader seen the patient. Per Cardiology, the patient responded to dopamine drip and converted to sinus rhythm. Dopamine drip was continued for one additional day. When the patient was hemodynamically stable, dopamine drip was discontinued. The patient was transferred out of the intensive care unit. Echocardiogram revealed preserved ejection fraction of 60% to 65%, mild left ventricular hypertrophy, and normal pulmonary artery pressure. Venous duplex of bilateral lower extremities was negative. Chest x-ray revealed borderline cardiomegaly and mild congestive changes. GI followed the patient closely. The patient was on lactulose and Xifaxan. Ammonia level was followed. The patient undergone upper endoscopy, which revealed severe portal gastropathy and distal esophageal varices grade 1 to 2. The patient declined inpatient colonoscopy. Patient subsequently was recommended outpatient colonoscopy. Anemia workup done. The patient status post- transfusion of two units of packed red blood cells. Hemoglobin- 8.4 and hematocrit 25.9 prior to discharge. Vitamin K one time was given. INR down to 1.7. Pathology of the gastric mucosa revealed no H. pylori, no metaplasia, and no dysplasia. The patient was on PPI. Overall, prognosis poor. The patient with a known history of hepatitis C and alcoholic liver cirrhosis as well as the renal failure. Varnish Inspector followed. Renal parameters were monitored. No change. Nephrotoxics were avoided. Electrolytes were stable. Alpha-fetoprotein was normal. CEA was elevated. Human immunodeficiency virus test negative. Hepatitis panel positive for hepatitis C. Housekeeper And Laundry Assistant cleared the patient to continue aspirin, but recommended to be off Coumadin and heparin and watch for coagulopathy. He recommended vitamin K only again if the patient rebleeds. Urologist also followed the patient. Flomax and Proscar were resumed after blood pressure stabilized. He recommended voiding trial in the [facility] facility. At this time, patient had Carter catheter. He also recommended cystoscopy as outpatient. Pain management was addressed , and pain was controlled. The patient was started on midodrine and off any antihypertensive. Blood pressure was stable. fiscal specialist, Dr. Castro discussed with the patient future prognosis and plan of care. The patient opted to sign for the hospice. He understood seriousness of his condition and did not want any further diagnostic procedure. The patient was stable for transfer to [facility] facility with hospice to followup. DISCHARGE DIAGNOSES: 1. Acute anemia , status post blood transfusion. 2. Dehydration. 3. Acute renal failure on chronic kidney disease. 4. Coagulopathy. 5. Shock, - resolved. 6. Junctional rhythm,- resolved. 7. Acute hepatic encephalopathy. 8. Transaminitis. 9. Ascites 10. status post paracentesis on 09/25/2016 with 5 liters removal. 10. Alcoholic liver cirrhosis. 11. Hepatitis C. 12. Status post esophagogastroduodenoscopy. 13. Gastritis. 14. Severe portal gastropathy. 15. Distal esophageal varices. 16. Urinary retention. 17. Possible neurogenic bladder. 18. Benign prostatic hypertrophy. 19. Bleeding diatheses left hip surgical site. 20. Hypotension. 21. History of alcohol abuse. 22. Elevated carcinoembryonic antigen. DISCHARGE MEDICATIONS: See medication reconciliation list. DISCHARGE INSTRUCTIONS: The patient was discharged to [facility] facility with hospice to followup. Shanita Oden M.D. I have been assigned to dictate discharge summary on this account and I was not involved in the patient's management. Yesenia ScanlonEllis Island Immigrant HospitalRadha NSongPSong DR: MARCO JOB#: [id number] CC: LEATHA
== END 2016-10-04 12:05 | DRG 811 ==
LOC: EDBD 22:45 → EMR 22:58 → EDBEDREQ 09-24 00:32 → 4E 09-24 01:12 → EDBEDREQ 09-24 01:22 → 4E 09-24 22:36 → 2E 09-25 12:38 → ICU 09-25 17:50 → 2E 09-27 18:26 → 4W 09-28 21:46
PROC: 30233N1 Transfusion of Nonautologous Red Blood Cells into Peripheral Vein, Percutaneous Approach (ICD-10-PCS; 2016-09-24)
PROC: 0W9G3ZZ Drainage of Peritoneal Cavity, Percutaneous Approach (ICD-10-PCS; principal; 2016-09-25)
PROC: 0DB68ZX Excision of Stomach, Via Natural or Artificial Opening Endoscopic, Diagnostic (ICD-10-PCS; 2016-09-26)
DX: D62 Acute posthemorrhagic anemia (principal); K72.00 Acute and subacute hepatic failure without coma; R57.0 Cardiogenic shock; N17.9 Acute kidney failure, unspecified; D68.4 Acquired coagulation factor deficiency; I85.00 Esophageal varices without bleeding; D69.59 Other secondary thrombocytopenia; L76.22 Postprocedural hemorrhage of skin and subcutaneous tissue following other procedure; K76.6 Portal hypertension; F03.90 Unspecified dementia, unspecified severity, without behavioral disturbance, psychotic disturbance, mood disturbance, and anxiety; Y83.8 Other surgical procedures as the cause of abnormal reaction of the patient, or of later complication, without mention of misadventure at the time of the procedure; K29.70 Gastritis, unspecified, without bleeding; R00.1 Bradycardia, unspecified; Z96.642 Presence of left artificial hip joint; E86.0 Dehydration; R74.0 Nonspecific elevation of levels of transaminase and lactic acid dehydrogenase [LDH]; K70.31 Alcoholic cirrhosis of liver with ascites; B19.20 Unspecified viral hepatitis C without hepatic coma; K31.89 Other diseases of stomach and duodenum; N40.1 Benign prostatic hyperplasia with lower urinary tract symptoms; R33.8 Other retention of urine; R97.0 Elevated carcinoembryonic antigen [CEA]; E87.5 Hyperkalemia; D63.8 Anemia in other chronic diseases classified elsewhere; Z91.81 History of falling; R62.7 Adult failure to thrive; K21.9 Gastro-esophageal reflux disease without esophagitis; F41.8 Other specified anxiety disorders; S72.002D Fracture of unspecified part of neck of left femur, subsequent encounter for closed fracture with routine healing; M97.02XD Periprosthetic fracture around internal prosthetic left hip joint, subsequent encounter; M25.552 Pain in left hip; W19.XXXD Unspecified fall, subsequent encounter; F29 Unspecified psychosis not due to a substance or known physiological condition
CPT/HCPCS: 36415; 36600; 71010; 76942; 80048; 80053; 81003; 82105; 82140; 82247; 82248; 82270; 82378; 82550; 82607; 82728; 82746; 82803; 82977; 83010; 83540; 83550; 83615; 83735; 83880; 84100; 84300; 84484; 84550; 85007; 85025; 85044; 85060; 85384; 85610; 85651; 85730; 86140; 86703; 86705; 86709; 86803; 86850; 86900; 86901; 86920; 87040; 87070; 87081; 87086; 87205; 87340; 89051; 93005; 93306; 93970; 94003; 94150; 94760; J3430

== ENCOUNTER 2016-10-06 23:49 | Emergency (ER) | payer MEDICARE ==
[~2016-10-06] VITALS: Ht 185.4 cm; Wt 92.5 kg
[~2016-10-06 23:49] MED LIST changes: +ASPIR 8181 MG ORAL; +MIDODRINE HCL2.5 MG ORAL; +NYSTATIN15 GM TOPIC; +PROSCAR5 MG ORAL; +TAMSULOSIN HCL0.4 MG ORAL; +VITAMIN C500 M1 ORAL; +VITAMIN D400 INTLU ORAL; +ZINC50 M1 ORAL; +ZINC50 M2 ORAL
[2016-10-06 23:55] VITALS: BP 120/78
[2016-10-07] MEDS ORDERED: Morphine Sulfate 4mg/ml Inj IM ONE (01:00)
[2016-10-07] MEDS ORDERED: Morphine Sulfate 4mg/ml Inj IVP ONE (01:00)
[2016-10-07 01:23] LABS: MEAN CORPUSCULAR HEMOGLOBIN 34.3 PG (27.0-31.0); MEAN CORPUSCULAR HGB CONC 32.9 G/DL (32.0-36.0); MEAN CORPUSCULAR VOLUME 104 FL (80-99); MEAN PLATELET VOLUME 6.8 FL (6.5-10.1); PLATELET COUNT 42 K/UL (150-450); RED CELL DISTRIBUTION WIDTH 19.5 % (11.6-14.8); WHITE BLOOD COUNT 4.4 K/UL (4.8-10.8)
[2016-10-07 01:24] LABS: KETONES,URINE 1+ (NEGATIVE); LEUKOCYTE ESTERASE ,URINE 3+ (NEGATIVE); NITRITE,URINE NEGATIVE (NEGATIVE); PH,URINE 5 (4.5-8.0); PROTEIN,URINE 2+ (NEGATIVE); UROBILINOGEN,URINE 1 MG/DL (0.0-1.0)
[2016-10-07 01:37] LABS: APPEARANCE,URINE CLOUDY
[2016-10-07 01:38] LABS: ALBUMIN/GLOBULIN RATIO 0.3 (1.0-2.7); CALCIUM 7.9 mg/dL (8.6-10.2); CREATININE 1.5 mg/dL (0.7-1.2); POTASSIUM 4.2 mEQ/L (3.4-4.9); TOTAL PROTEIN 6.5 g/dL (6.6-8.7)
[2016-10-07 01:42] LABS: BACTERIA,URINE MANY /HPF; CALCIUM OXALATE CRYSTALS,UR FEW /LPF; RBC,URINE TNTC /HPF (0 - 0); WBC,URINE TNTC /HPF (0 - 0)
[2016-10-07 01:55] VITALS: BP 106/58
[2016-10-07] MEDS ORDERED: cefTRIAXone 1 GM in NS 55 ML IVPB ONE (02:00)
[2016-10-07] MEDS ORDERED: MYCOLOG OINT1 APPLIC TOPIC (02:34)
[2016-10-07] MEDS ORDERED: LEVAQUIN500 MG ORAL (02:34)
--- NOTE | 2016-10-07 02:34 | Emergency Room Report ---
History of Present Illness General Chief Complaint: Abdominal Pain Source: Patient, Medical Record Present Illness HPI Is a 66-year-old male with a history of alcoholic cirrhosis with ascites. He was admitted here for anemia and had paracentesis. He was discharged to the correction this one to 2 days ago. He was sent in for chief complaint of abdominal distention and fluid leaking from the abdomen. Patient complained of generalized pain. No fever or chills. No nausea no vomiting. Denies any other complaint. Pain is 8/10. Crampy in nature. [place] short of breath abdominal distention. Allergies: Coded Allergies: No Known Allergies (Unverified , 10/06/16) Patient History Past Medical History: see triage record, old chart reviewed Past Surgical History: other Pertinent Family History: none Social History: Denies: alcohol use - History of Immunizations: other Reviewed Nursing Documentation: PMH: Agreed, PSxH: Agreed Nursing Documentation-PM Past Medical History: No History, Except For Hx Cardiac Problems: No Hx Hypertension: Yes Review of Systems Eye: Denies: blurred vision, eye pain ENT: Denies: ear pain, nose congestion, throat swelling Respiratory: Denies: cough, shortness of breath Cardiovascular: Denies: chest pain, palpitations Gastrointestinal: Reports: abdominal pain, Denies: diarrhea, nausea, vomiting Musculoskeletal: Denies: back pain, joint pain Skin: Denies: rash Neurological: Denies: headache, numbness Endocrine: Denies: increased thirst, increased urine Hematologic/Lymphatic: Denies: easy bruising All Other Systems: negative except mentioned in HPI Physical Exam Vital Signs Date Time Temp Pulse Resp B/P Pulse Ox O2 Delivery O2 Flow Rate FiO2 10/06/16 23:49 98.1 100 16 120/78 98 Room Air vitals normal Sp02 EP Interpretation: reviewed, normal General Appearance: well appearing, no apparent distress, alert Head: normocephalic, atraumatic Eyes: bilateral eye EOMI, bilateral eye PERRL ENT: hearing grossly normal, normal pharynx Neck: full range of motion, supple, no meningismus Respiratory: chest non-tender, lungs clear, normal breath sounds Cardiovascular #1: regular rate, rhythm, no murmur Gastrointestinal: normal bowel sounds, non tender, no mass, no organomegaly, no bruit, non-distended, distended - With ascites. Clear straw color liquid leaking from paracentesis site., other - Diffuse erythematous candidal rash to the suprapubic and inguinal area. Musculoskeletal: back normal, normal range of motion Neurologic: alert Psychiatric: mood/affect normal Skin: warm/dry Procedures Additional Procedure Procedure Narrative Procedure: Paracentesis Indication: Tense ascites Description: Under sterile condition, I place a paracentesis catheter in the left lower quadrant. I used the same site as a previous paracentesis. I removed almost 4 L of straw-colored fluid consistent with ascites. There is no cloudiness. Patient tolerated procedure without a problem. Medical Decision Making Diagnostic Impression: Primary Impression: Cirrhosis of liver with ascites Qualified Codes: K70.31 - Alcoholic cirrhosis of liver with ascites Additional Impressions: Anemia Qualified Codes: D64.9 - Anemia, unspecified End-stage liver disease Thrombocytopenia Intertriginous candidiasis ER Course Patient presents with ascites. This is secondary to his incision and disease from alcohol. I did a therapeutic paracentesis and withdraw about 4 L. Patient felt better. No evidence of SBP. He does have urinary tract infection. We'll put on antibiotics. He is otherwise stable and labs are at baseline. We'll discharge back to correction. Lab Results Impression labs are at baseline Last Vital Signs Date Time Temp Pulse Resp B/P Pulse Ox O2 Delivery O2 Flow Rate FiO2 10/06/16 23:55 98.1 100 16 120/78 98 Room Air Status: improved Disposition: ER SNF Condition: Stable Scripts Nystatin/Triamcinolone (Nystatin-Triamcinolone Ointm) 15 Gm Oint...g. 1 APPLIC TOPIC TID, #60 GM Prov: NOAH COLLIER M.D. 10/07/16 Levofloxacin* (LEVAQUIN*) 500 Mg Tablet 500 MG ORAL DAILY, #7 TAB Prov: NOAH COLLIER M.D. 10/07/16 Referrals: Shanita Oden MD (PCP) Additional Instructions: Followup with primary care in 7 days. Return for fever or any concern. NOAH COLLIER M.D. October 07, 2016 02:34
[2016-10-07 03:00] VITALS: BP 108/65
[2016-10-07 03:01] VITALS: BP 108/65
[2016-10-07 03:29] LABS: BILIRUBIN,DIRECT 1.5 mg/dL (0.1-0.3)
== END 2016-10-07 03:09 ==
LOC: EDBD 23:49 → EMR 23:58
DX: K70.31 Alcoholic cirrhosis of liver with ascites (principal); D64.9 Anemia, unspecified; K72.90 Hepatic failure, unspecified without coma; D69.6 Thrombocytopenia, unspecified; B37.89 Other sites of candidiasis; I10 Essential (primary) hypertension
CPT/HCPCS: 36415; 49082; 80053; 81003; 82248; 83690; 85025; 87086; 87181; 96374; 96375; 99284; J0696; J2270; J2405

== ENCOUNTER 2016-10-09 03:25 | Emergency (ER) | payer MEDICARE ==
[~2016-10-09] VITALS: Ht 182.9 cm; Wt 90.7 kg
[~2016-10-09 03:25] MED LIST changes: +LEVAQUIN500 MG ORAL; +MYCOLOG OINT1 APPLIC TOPIC
[2016-10-09] MEDS ORDERED: Morphine Sulfate 4mg/ml Inj IVP ONE ×2 (03:30→05:00)
[2016-10-09] MEDS ORDERED: cefTRIAXone 1 GM in NS 55 ML IVPB ONE (03:30)
[2016-10-09 03:45] VITALS: BP 105/68
--- NOTE | 2016-10-09 04:57 | Emergency Room Report ---
History of Present Illness General Chief Complaint: Abdominal Pain Source: Patient, Medical Record, EMS Present Illness HPI Is a 66-year-old male with a history of alcoholic cirrhosis with ascites. He has end stage liver disease with probable hepatocellular carcinoma. He had paracentesis on admission and was recently discharged a residential. I saw him couple days ago for abdominal pain with ascites. I did another paracentesis remove of 4 L. Labs are at baseline. He presents with continual abdominal pain. Is a chronic issue. No fever or chills. No nausea no vomiting. He does have urine tract infection is being treated. No other complaint. Pain is 8/10. Allergies: Coded Allergies: No Known Allergies (Unverified , 10/06/16) Patient History Past Medical History: see triage record, old chart reviewed Past Surgical History: other Pertinent Family History: none Social History: Reports: alcohol use - History of Immunizations: other Reviewed Nursing Documentation: PMH: Agreed, PSxH: Agreed Nursing Documentation-PMH Hx Cardiac Problems: No Hx Hypertension: Yes Review of Systems Eye: Denies: blurred vision, eye pain ENT: Denies: ear pain, nose congestion, throat swelling Respiratory: Denies: cough, shortness of breath Cardiovascular: Denies: chest pain, palpitations Gastrointestinal: Reports: abdominal pain, Denies: diarrhea, nausea, vomiting Musculoskeletal: Denies: back pain, joint pain Skin: Denies: rash Neurological: Denies: headache, numbness Endocrine: Denies: increased thirst, increased urine Hematologic/Lymphatic: Denies: easy bruising All Other Systems: negative except mentioned in HPI Physical Exam Vital Signs Date Time Temp Pulse Resp B/P Pulse Ox O2 Delivery O2 Flow Rate FiO2 10/09/16 03:29 97.5 93 18 98/60 100 Room Air vitals normal Sp02 EP Interpretation: reviewed, normal General Appearance: well appearing, no apparent distress, alert Head: normocephalic, atraumatic Eyes: bilateral eye EOMI, bilateral eye PERRL ENT: hearing grossly normal, normal pharynx Neck: full range of motion, supple, no meningismus Respiratory: chest non-tender, lungs clear, normal breath sounds Cardiovascular #1: regular rate, rhythm, no murmur Gastrointestinal: normal bowel sounds, no mass, no organomegaly, no bruit, distended, tenderness - Abdomen is soft. Slight decrease of ascites from the paracentesis site. Liquid is clear. Minimal tenderness. Musculoskeletal: back normal, normal range of motion Neurologic: alert Psychiatric: mood/affect normal Skin: warm/dry Medical Decision Making Diagnostic Impression: Primary Impression: Abdominal pain of unknown etiology Additional Impressions: History of alcoholism End-stage liver disease Cirrhosis of liver with ascites Qualified Codes: K70.31 - Alcoholic cirrhosis of liver with ascites ER Course Patient presents with abdominal pain. This is a chronic issue. No evidence of obstruction. No evidence of SBP. I gave him a dose of Rocephin for the UTI. Microscopy is still pending. He is currently on antibiotics already. We'll discharge back to residential. CT/MRI/US Diagnostic Results CT/MRI/US Diagnostic Results : Imaging Test Ordered: CT abdomen and pelvis Impression Read by radiologist. Cirrhosis with ascites. Revision of fracture. Last Vital Signs Date Time Temp Pulse Resp B/P Pulse Ox O2 Delivery O2 Flow Rate FiO2 10/09/16 03:45 97.5 18 105/68 100 Room Air 10/09/16 03:29 93 Status: improved Disposition: XFER SNF Condition: Stable Scripts Hydrocodone/Acetaminophen 5-325* (HYDROCODONE/ACETAMINOPHEN 5-325*) 1 Each Tablet 1 TAB ORAL Q6H Y for For Pain, #30 TAB 0 Refills Prov: NOAH COLLIER M.D. 10/09/16 Referrals: Shanita Oden MD (PCP) Patient Instructions: Abdominal Pain, Adult Additional Instructions: Followup with your DrSong in 7 days. Return if symptom worsen. NOAH COLLIER M.D. October 09, 2016 04:57
[2016-10-09] MEDS ORDERED: HYDROCODON-ACE1 EA15 ORAL (05:19)
[2016-10-09 05:50] VITALS: BP 98/53
[2016-10-09 05:52] VITALS: BP 98/53
--- NOTE | 2016-10-09 10:03 | Diagnostic Imaging Report ---
Indication: Abdominal pain Technique: Continuous helical transaxial imaging of the abdomen and pelvis was obtained from the lung bases to the pubic symphysis. No intravenous contrast was administered. Coronal 2-D reformats were also obtained. Total Dose length Product (DLP): [address] Dose Index Volume (CTDIvol): 20 mGy Comparison: none Findings: The study is limited by the absence of intravenous and oral contrast. The lung bases are essentially clear. There is moderate ascites. Nodularity of the liver, marked splenomegaly and suggestion of portosystemic varices in the upper abdomen demonstrated. No evidence of bowel obstruction or free air. Carter catheter appears to be in good position. Appendix not seen. A left total hip prosthetic noted. Vascular calcifications in the aorta noted. Tiny nonobstructive stone demonstrated in both kidneys. Gallstones are present. There is a right inguinal hernia containing fluid. Impression: Chronic liver disease/cirrhosis with stigmata of portal hypertension including ascites, varices and splenomegaly. Nonobstructive bilateral renal stones Gallstone Atherosclerotic vascular disease Carter catheter Right inguinal hernia containing ascites Left total hip replacement. Anasarca The CT scanner at [facility] is accredited by the [employer] and the scans are performed using dose optimization techniques as appropriate to a performed exam including Automatic Exposure control.
[2016-10-09] MEDS ORDERED: PRO-STAT LIQUID30 ML ORAL (16:17)
[2016-10-09] MEDS ORDERED: ACETAMINOPHEN325 M1 ORAL (16:17)
[2016-10-09] MEDS ORDERED: NORCO 5-325 TA1 EAC1 ORAL (16:17)
[2016-10-09] MEDS ORDERED: VITAMIN C500 M1 ORAL (16:20)
[2016-10-09] MEDS ORDERED: FLEET ENEMA EX230 ML RC (16:20)
[2016-10-09] MEDS ORDERED: DULCOLAX10 MG RC (16:20)
[2016-10-09] MEDS ORDERED: ZINC SULFATE220 M1 ORAL (16:20)
[2016-10-09] MEDS ORDERED: SENNA8.6 M2 PO (16:20)
[2016-10-09] MEDS ORDERED: MULTIVITAMINS1 EAC8 ORAL (16:20)
[2016-10-09] MEDS ORDERED: MILK OF MA400 MG/51 ORAL ×2 (16:20→17:49)
[2016-10-09] MEDS ORDERED: DOCUSATE SODIU100 MG ORAL (16:20)
[2016-10-09] MEDS ORDERED: ASCORBIC ACID500 MG ORAL (17:47)
[2016-10-09] MEDS ORDERED: PROTONIX40 MG ORAL (17:52)
[2016-10-09] MEDS ORDERED: CRANBERRY450 M4 PO (18:16)
== END 2016-10-09 05:55 ==
LOC: EDBD 03:25 → EDUNIT# 03:25 → EMR 03:35
DX: R10.9 Unspecified abdominal pain (principal); K70.31 Alcoholic cirrhosis of liver with ascites; K72.90 Hepatic failure, unspecified without coma; F10.21 Alcohol dependence, in remission; I10 Essential (primary) hypertension
CPT/HCPCS: 74176; 96374; 96375; 99284; J0696; J2270; J2405

== ENCOUNTER 2016-10-09 14:07 | Inpatient (IN) | payer MEDICARE ==
[~2016-10-09] VITALS: Ht 175.3 cm; Wt 72.6 kg
[2016-10-09] VITALS (9 sets, daily range): BP systolic 96–143; BP diastolic 49–78
[~2016-10-09 14:07] MED LIST changes: +HYDROCODON-ACE1 EA15 ORAL
--- NOTE | 2016-10-09 15:22 | Diagnostic Imaging Report ---
Indication: Chest Pain Comparison: 09/28/16 A single view chest radiograph was obtained. Findings: PICC line is in good position. Cardiomegaly is present. Mild interstitial edema suspected. Impression: Mild interstitial edema is possible. Please correlate clinically
[2016-10-09 15:34] LABS: INR 1.8 (0.9-1.1); PROTHROMBIN TIME 18.7 SEC (9.30-11.50)
[2016-10-09 15:35] LABS: TROPONIN I < 0.30 ng/mL (<=0.30)
[2016-10-09 15:41] LABS: MEAN CORPUSCULAR HEMOGLOBIN 33.6 PG (27.0-31.0); MEAN CORPUSCULAR HGB CONC 31.9 G/DL (32.0-36.0); MEAN CORPUSCULAR VOLUME 105 FL (80-99); MEAN PLATELET VOLUME 6.4 FL (6.5-10.1); PLATELET COUNT 46 K/UL (150-450); RED BLOOD COUNT 2.69 M/UL (4.70-6.10); RED CELL DISTRIBUTION WIDTH 18.9 % (11.6-14.8)
[2016-10-09 15:53] LABS: REFLEX LACTIC ACID YES OR NO YES
[2016-10-09 16:02] LABS: APPEARANCE,URINE CLEAR; KETONES,URINE NEGATIVE (NEGATIVE); LEUKOCYTE ESTERASE ,URINE 3+ (NEGATIVE); NITRITE,URINE NEGATIVE (NEGATIVE); PH,URINE 5 (4.5-8.0); PROTEIN,URINE 2+ (NEGATIVE); UROBILINOGEN,URINE 1 MG/DL (0.0-1.0)
[2016-10-09] MEDS ORDERED: ACETAMINOPHEN325 M1 ORAL (16:17)
[2016-10-09] MEDS ORDERED: NORCO 5-325 TA1 EAC1 ORAL (16:17)
[2016-10-09] MEDS ORDERED: PRO-STAT LIQUID30 ML ORAL (16:17)
[2016-10-09] MEDS ORDERED: VITAMIN C500 M1 ORAL (16:20)
[2016-10-09] MEDS ORDERED: MILK OF MA400 MG/51 ORAL ×2 (16:20→17:49)
[2016-10-09] MEDS ORDERED: MULTIVITAMINS1 EAC8 ORAL (16:20)
[2016-10-09] MEDS ORDERED: FLEET ENEMA EX230 ML RC (16:20)
[2016-10-09] MEDS ORDERED: DULCOLAX10 MG RC (16:20)
[2016-10-09] MEDS ORDERED: DOCUSATE SODIU100 MG ORAL (16:20)
[2016-10-09] MEDS ORDERED: SENNA8.6 M2 PO (16:20)
[2016-10-09] MEDS ORDERED: ZINC SULFATE220 M1 ORAL (16:20)
[2016-10-09 16:32] LABS: BACTERIA,URINE MODERATE /HPF; YEAST,URINE FEW /HPF
[2016-10-09 17:10] LABS: ANISOCYTOSIS 1+; BAND NEUTROPHILS % (MANUAL) 2 % (0-8); BASOPHILS % (MANUAL) 0 % (0-2); EOSINOPHILS % (MANUAL) 2 % (0-3); HYPOCHROMASIA 1+; LYMPHOCYTES % (MANUAL) 9 % (20-45); MACROCYTES 1+; NEUTROPHILS % (MANUAL) 75 % (45-75); PLATELET ESTIMATE DECREASED; PLATELET MORPHOLOGY NORMAL; TOTAL CELLS COUNTED 100
[2016-10-09 17:12] LABS: ALBUMIN/GLOBULIN RATIO 0.3 (1.0-2.7); CALCIUM 8.1 mg/dL (8.6-10.2); CREATININE 1.8 mg/dL (0.7-1.2); GLOMERULAR FILTRATION RATE 46.2 mL/min (>60); POTASSIUM 4.7 mEQ/L (3.4-4.9); TOTAL PROTEIN 6.5 g/dL (6.6-8.7)
[2016-10-09] MEDS ORDERED: Ampicillin/Sulbactam Sod 3 GM in NS 110 ML IV SCH (17:15)
[2016-10-09] MEDS ORDERED: NS 1000ml 2,200 ML IVLG ONE (17:15)
[2016-10-09] MEDS ORDERED: Unasyn 3gm Inj ONE (17:26)
[2016-10-09 17:27] LABS: BILIRUBIN,DIRECT 1.3 mg/dL (0.1-0.3)
[2016-10-09] MEDS ORDERED: ASCORBIC ACID500 MG ORAL (17:47)
--- NOTE | 2016-10-09 17:47 | Emergency Room Report ---
History of Present Illness General Chief Complaint: General Complaint Source: Medical Record Present Illness HPI 66-year-old M presents to ED for evaluation. Per EMS patient is having increasing leg swelling and increased abdominal distention with drainage from abdomen. Patient was recent admitted to hospital. Patient has history of liver failure. Patient has fluid overload. On last admission patient had paracentesis. Patient was seen here twice in the last few days for similar presentation and was subsequently discharged back to facility. PMD Dr. Oden referred patient to ED for evaluation as his symptoms are not improving. Patient has dementia at baseline. No fevers or chills. No nausea or vomiting. No chest pain or shortness of breath. No aggravating relieving factors. No other associated symptoms Allergies: Coded Allergies: No Known Allergies (Unverified , 10/06/16) Patient History Past Medical History: HTN, other - liver failure Past Surgical History: none Pertinent Family History: none Social History: Denies: alcohol use, drug use, smoking Immunizations: UTD Reviewed Nursing Documentation: PMH: Agreed, PSxH: Agreed Nursing Documentation-PMH Past Medical History: No History, Except For Hx Hypertension: Yes Hx Gastrointestinal Problems: Yes - Hepatic failure Review of Systems All Other Systems: negative except mentioned in HPI Physical Exam Vital Signs Date Time Temp Pulse Resp B/P Pulse Ox O2 Delivery O2 Flow Rate FiO2 10/09/16 14:00 97.5 94 16 101/58 100 Room Air Sp02 EP Interpretation: reviewed, normal General Appearance: lethargic Head: normocephalic Eyes: bilateral eye PERRL, bilateral eye normal inspection ENT: normal ENT inspection Neck: normal inspection Respiratory: chest non-tender, lungs clear, normal breath sounds, speaking full sentences Cardiovascular #1: regular rate, rhythm, no edema Gastrointestinal: normal bowel sounds, non tender, soft, no rebound, distended Rectal: deferred Genitourinary: no CVA tenderness Musculoskeletal: swelling - 2+ pitting edema b/l LEs Neurologic: other - AAOX2 Psychiatric: other - AAOX2 Skin: normal inspection Lymphatic: normal inspection Medical Decision Making Diagnostic Impression: Primary Impression: LFT elevation Additional Impressions: End-stage liver disease Coagulopathy Sepsis Qualified Codes: A41.9 - Sepsis, unspecified organism UTI (urinary tract infection) Qualified Codes: N39.0 - Urinary tract infection, site not specified Ascites Qualified Codes: R18.8 - Other ascites ARF (acute renal failure) Qualified Codes: N17.9 - Acute kidney failure, unspecified ER Course Hospital Course 66-year-old male presents to ED with increased abdominal distention and leg swelling. Multiple visits to ED recently Differential diagnoses include: ascites, fluid overload, ARF Clinical course Patient placed on stretcher. On flame degreaser with stable vitals are ED course. After initial history and physical, I ordered labs, IV fluids, EKG, chest x-ray, blood cultures, UA. Labs - BUN/Cr elevated, no leukocytosis, troponins negative, LFTs elevated, lactic elevated, coags elevated ,UA grossly positive for UTI EKG - NSR, no acute changes CXR - mild interstitial edema, PICC line line place 30cc/kg fluid given. Abx given. Case discussed with Dr Oden and they agreed to admit patient to their service for further care and support I feel this is a highly complex case requiring extensive working including EKG/ Rhythm strip, Xray/CT/US, Blood/urine lab work, repeat exams while in ED, and administration of strong opiates/narcotics for pain control, admission to hospital or close patient follow up. Diagnosis - UTI, left elevation, end-stage liver disease, coagulopathy, sepsis, ascites, acute renal failure Patient admitted to floor in serious condition Labs Test 10/09/16 14:27 10/09/16 14:40 10/09/16 14:45 10/09/16 16:15 Sodium Level 129 mEQ/L (135-145) Potassium Level 4.7 mEQ/L (3.4-4.9) Chloride Level 95 mEQ/L (98-107) Carbon Dioxide Level 19 mEQ/L (20-30) Anion Gap 15 (5-15) Blood Urea Nitrogen 39 mg/dL (7-23) Creatinine 1.8 mg/dL (0.7-1.2) Estimat Glomerular Filtration Rate 46.2 mL/min (>60) Glucose Level 122 mg/dL (74-106) Calcium Level 8.1 mg/dL (8.6-10.2) Total Bilirubin 2.4 mg/dL (0.0-1.2) Direct Bilirubin 1.3 mg/dL (0.1-0.3) Aspartate Amino Transf (AST/SGOT) 83 U/L (5-40) Alanine Aminotransferase (ALT/SGPT) 32 U/L (3-41) Alkaline Phosphatase 181 U/L (40-129) Ammonia 55 umol/L (16-60) Total Protein 6.5 g/dL (6.6-8.7) Albumin 1.5 g/dL (3.5-5.2) Globulin 5.0 g/dL Albumin/Globulin Ratio 0.3 (1.0-2.7) Lipase 49 U/L (< 60) White Blood Count 5.0 K/UL (4.8-10.8) Red Blood Count 2.69 M/UL (4.70-6.10) Hemoglobin 9.0 G/DL (14.2-18.0) Hematocrit 28.4 % (42.0-52.0) Mean Corpuscular Volume 105 FL (80-99) Mean Corpuscular Hemoglobin 33.6 PG (27.0-31.0) Mean Corpuscular Hemoglobin Concent 31.9 G/DL (32.0-36.0) Red Cell Distribution Width 18.9 % (11.6-14.8) Platelet Count 46 K/UL (150-450) Mean Platelet Volume 6.4 FL (6.5-10.1) Neutrophils (%) (Auto) % (45.0-75.0) Lymphocytes (%) (Auto) % (20.0-45.0) Monocytes (%) (Auto) % (1.0-10.0) Eosinophils (%) (Auto) % (0.0-3.0) Basophils (%) (Auto) % (0.0-2.0) Differential Total Cells Counted 100 Neutrophils % (Manual) 75 % (45-75) Lymphocytes % (Manual) 9 % (20-45) Monocytes % (Manual) 12 % (1-10) Eosinophils % (Manual) 2 % (0-3) Basophils % (Manual) 0 % (0-2) Band Neutrophils 2 % (0-8) Platelet Estimate Decreased Platelet Morphology Normal Hypochromasia 1+ Anisocytosis 1+ Macrocytosis 1+ Prothrombin Time 18.7 SEC (9.30-11.50) Prothromb Time International Ratio 1.8 (0.9-1.1) Activated Partial Thromboplast Time 40 SEC (23-33) Lactic Acid Level 2.80 mmol/L (0.66-2.22) 3.00 mmol/L (0.66-2.22) Troponin I < 0.30 ng/mL (<=0.30) Urine Color Yellow Urine Appearance Clear Urine pH 5 (4.5-8.0) Urine Specific [place] 1.015 (1.005-1.035) Urine Protein 2+ (NEGATIVE) Urine Glucose (UA) Negative (NEGATIVE) Urine Ketones Negative (NEGATIVE) Urine Occult Blood 5+ (NEGATIVE) Urine Nitrite Negative (NEGATIVE) Urine Bilirubin Negative (NEGATIVE) Urine Urobilinogen 1 MG/DL (0.0-1.0) Urine Leukocyte Esterase 3+ (NEGATIVE) Urine RBC 10-15 /HPF (0 - 0) Urine WBC 5-10 /HPF (0 - 0) Urine Squamous Epithelial Cells None /LPF (NONE/OCC) Urine Bacteria Moderate /HPF (NONE) Urine Yeast Few /HPF (NONE) EKG Diagnostic Results Rate: normal Rhythm: NSR ST Segments: no acute changes ASA given to the pt in ED: No Rhythm Strip Diag. Results EP Interpretation: yes Rhythm: NSR, no PVC's, no ectopy Chest X-Ray Diagnostic Results EP Interpretation: No Findings: no pneumothorax, no acute cardiopulmonary disease, other - interstitital edema. PICC Line Number of Views: 1 Last Vital Signs Date Time Temp Pulse Resp B/P Pulse Ox O2 Delivery O2 Flow Rate FiO2 10/09/16 17:00 105 18 114/78 98 Room Air 10/09/16 14:05 97.5 Status: improved Disposition: ADMITTED INPATIENT Condition: Serious Referrals: NOT CHOSEN JOSE/,REFERRING (PCP) SCARLETT SANDOVAL M.D. October 09, 2016 17:47
[2016-10-09] MEDS ORDERED: PROTONIX40 MG ORAL (17:52)
[2016-10-09] MEDS ORDERED: CRANBERRY450 M4 PO (18:16)
[2016-10-09] MEDS: Norco 5mg/325mg tab ORAL PRN (22:52)
[2016-10-09] MEDS: Milk of Magnesia 30ml Ud ORAL SCH (22:52)
[2016-10-10] MEDS: Norco 5mg/325mg tab ORAL PRN (03:09)
[2016-10-10 04:00] VITALS: BP 104/57
[2016-10-10 07:14] LABS: MEAN CORPUSCULAR HEMOGLOBIN 33.2 PG (27.0-31.0); MEAN CORPUSCULAR HGB CONC 31.6 G/DL (32.0-36.0); MEAN CORPUSCULAR VOLUME 105 FL (80-99); MEAN PLATELET VOLUME 7.5 FL (6.5-10.1); PLATELET COUNT 42 K/UL (150-450); RED BLOOD COUNT 2.44 M/UL (4.70-6.10); RED CELL DISTRIBUTION WIDTH 18.9 % (11.6-14.8); WHITE BLOOD COUNT 4.3 K/UL (4.8-10.8)
[2016-10-10 07:41] VITALS: BP 109/57
[2016-10-10 08:26] LABS: ALBUMIN/GLOBULIN RATIO 0.3 (1.0-2.7); CALCIUM 7.9 mg/dL (8.6-10.2); CREATININE 1.8 mg/dL (0.7-1.2); GLOMERULAR FILTRATION RATE 46.2 mL/min (>60); POTASSIUM 4.3 mEQ/L (3.4-4.9); TOTAL PROTEIN 5.9 g/dL (6.6-8.7)
[2016-10-10 08:36] LABS: BILIRUBIN,DIRECT 1.3 mg/dL (0.1-0.3)
[2016-10-10] MEDS: Tamsulosin 0.4mg cap ORAL SCH ×2 (08:50→17:02)
[2016-10-10] MEDS: Rifaximin 550mg tab ORAL SCH ×2 (08:50→17:02)
[2016-10-10] MEDS: Docusate 100mg cap ORAL SCH ×2 (08:51→17:03)
[2016-10-10] MEDS: Lactulose 20gm/30ml UDC ORAL SCH ×2 (08:51→17:02)
[2016-10-10] MEDS: Multivitamin w/Minerals tab ORAL SCH (08:51)
[2016-10-10] MEDS: Zinc Sulfate 220mg cap ORAL SCH (08:51)
[2016-10-10] MEDS ORDERED: Ascorbic Acid 500mg tab ORAL SCH (09:00)
--- NOTE | 2016-10-10 09:55 | General Progress Note ---
Assessment/Plan Status: stable Assessment/Plan 1. Abdominal pain secondary to recurrent Ascitis expanson, infection!? 2. Anasarca, multifactorial 3. s/p Status post mechanical fall. 2. S/P Left periprosthetic femoral fracture and second surgery in hospital 3. Alcoholic liver cirrhosis. 4. Elevated transaminase. 5. 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 6. Elevated tumor markers (CEA, AFP/alpha-fetoprotein). 7. Chronic hepatic encephalopathy. 8. Hypertension. 9. Dementia. 10. Psychosis. 11. History of hemiarthroplasty, left hip, recent. 12. Hepatitis C. 13. History of alcohol abuse. 14. Acute on chronic Anemia 15. Thrombocytopenia, secondary to alcohol abuse. Plan: Nephro GI Cardiology services Are consulted and notified will monitor H&H and proceed with Paracentesis Poor Prognosis Will discuss the need for palliative care with DPOA. Subjective ROS Limited/Unobtainable: No Constitutional: Reports: weakness Cardiovascular: Reports: no symptoms Allergies: Coded Allergies: No Known Allergies (Unverified , 10/06/16) Objective Last 24 Hour Vital Signs Date Time Temp Pulse Resp B/P Pulse Ox O2 Delivery O2 Flow Rate FiO2 10/10/16 07:41 97.2 100 19 109/57 98 Room Air 10/10/16 04:08 97.2 10/10/16 04:00 97.3 98 18 104/57 98 Room Air 10/09/16 23:53 97.2 88 18 96/49 97 Room Air 10/09/16 20:00 97.9 92 18 102/68 97 Room Air 10/09/16 18:58 96.8 91 18 143/72 100 Room Air 10/09/16 18:55 96.8 104 20 143/74 100 Room Air 10/09/16 18:20 97.5 100 20 105/70 99 Room Air 10/09/16 18:00 100 20 105/70 99 Room Air 10/09/16 17:00 105 18 114/78 98 Room Air 10/09/16 16:00 91 13 99/60 97 Room Air 10/09/16 15:00 87 16 108/61 98 Room Air 10/09/16 14:05 97.5 78 16 101/58 100 Room Air 10/09/16 14:00 97.5 94 16 101/58 100 Room Air Intake and Output 10/09/16 10/10/16 19:00 07:00 Intake Total 2710 ml 275 ml Output Total 500 ml Balance 2710 ml -225 ml Intake Oral 275 ml IV Total 2710 ml Output Urine Total 500 ml # Voids 1 Laboratory Tests 10/09/16 14:27: Sodium Level 129L, Potassium Level 4.7, Chloride Level 95L, Carbon Dioxide Level 19L, Anion Gap 15, Blood Urea Nitrogen 39H, Creatinine 1.8H, Estimat Glomerular Filtration Rate 46.2, Glucose Level 122H, Calcium Level 8.1L, Total Bilirubin 2.4H, Direct Bilirubin 1.3H, Aspartate Amino Transf (AST/SGOT) 83H, Alanine Aminotransferase (ALT/SGPT) 32, Alkaline Phosphatase 181H, Ammonia 55, Total Protein 6.5L, Albumin 1.5L, Globulin 5.0, Albumin/Globulin Ratio 0.3L, Lipase 49 10/09/16 14:40: White Blood Count 5.0, Red Blood Count 2.69L, Hemoglobin 9.0L, Hematocrit 28.4L , Mean Corpuscular Volume 105H, Mean Corpuscular Hemoglobin 33.6H, Mean Corpuscular Hemoglobin Concent 31.9L, Red Cell Distribution Width 18.9H, Platelet Count 46L, Mean Platelet Volume 6.4L, Neutrophils (%) (Auto) , Lymphocytes (%) (Auto) , Monocytes (%) (Auto) , Eosinophils (%) (Auto) , Basophils (%) (Auto) , Differential Total Cells Counted 100, Neutrophils % ( Manual) 75, Lymphocytes % (Manual) 9L, Monocytes % (Manual) 12H, Eosinophils % ( Manual) 2, Basophils % (Manual) 0, Band Neutrophils 2, Platelet Estimate DecreasedL, Platelet Morphology Normal, Hypochromasia 1+, Anisocytosis 1+, Macrocytosis 1+, Prothrombin Time 18.7H, Prothromb Time International Ratio 1.8H , Activated Partial Thromboplast Time 40H, Lactic Acid Level 2.80H, Troponin I < 0.30 10/09/16 14:45: Urine Color Yellow, Urine Appearance Clear, Urine pH 5, Urine Specific [place] 1.015, Urine Protein 2+H, Urine Glucose (UA) Negative, Urine Ketones Negative, Urine Occult Blood 5+H, Urine Nitrite Negative, Urine Bilirubin Negative, Urine Urobilinogen 1H, Urine Leukocyte Esterase 3+H, Urine RBC 10-15H, Urine WBC 5-10H , Urine Squamous Epithelial Cells None, Urine Bacteria ModerateH, Urine Yeast FewH 10/09/16 16:15: Lactic Acid Level 3.00H 10/10/16 06:50: White Blood Count 4.3L, Red Blood Count 2.44L, Hemoglobin 8.1L, Hematocrit 25.6L , Mean Corpuscular Volume 105H, Mean Corpuscular Hemoglobin 33.2H, Mean Corpuscular Hemoglobin Concent 31.6L, Red Cell Distribution Width 18.9H, Platelet Count 42L, Mean Platelet Volume 7.5, Neutrophils (%) (Auto) , Lymphocytes (%) (Auto) , Monocytes (%) (Auto) , Eosinophils (%) (Auto) , Basophils (%) (Auto) , Neutrophils % (Manual) [Pending], Lymphocytes % (Manual) [Pending], Platelet Estimate [Pending], Platelet Morphology [Pending], Sodium Level 132L, Potassium Level 4.3, Chloride Level 97L, Carbon Dioxide Level 19L, Anion Gap 16H, Blood Urea Nitrogen 38H, Creatinine 1.8H, Estimat Glomerular Filtration Rate 46.2, Glucose Level 104, Calcium Level 7.9L, Total Bilirubin 2.2H, Direct Bilirubin 1.3H, Aspartate Amino Transf (AST/SGOT) 75H, Alanine Aminotransferase (ALT/SGPT) 29, Alkaline Phosphatase 160H, Total Protein 5.9L, Albumin 1.4L, Globulin 4.5, Albumin/Globulin Ratio 0.3L Height (Feet): 5 Height (Inches): 9.00 Weight (Pounds): 160 General Appearance: no apparent distress EENT: PERRL/EOMI Neck: supple Cardiovascular: normal rate Respiratory/Chest: rhonchi - bilaterally Abdomen: distended, other - sever Ascitic acumulation Genitourinary/Rectal: other - on weeks Extremities: other - decreased ROM in left leg secondary to pain Edema: 3+ Leg (R), 3+ Pedal (L), 3+ Pedal (R) Neurologic: disoriented, other - Demented Shanita Oden MD October 10, 2016 09:55
--- NOTE | 2016-10-10 10:06 | History & Physical ---
History and Physical History & Physicial Dictation completed [id number] Shanita Oden MD October 10, 2016 10:06
--- NOTE | 2016-10-10 11:25 | GI Initial Consult Note ---
Martina Collierh Norris N.PSong 10/10/16 1125: History of Present Illness General Date patient seen: October 10, 2016 Time patient seen: 10:00 Reason for Hospitalization: General Complaint Referring physician: REGLA BROWN Reason for Consultation: CIRRHOSIS Present Illness HPI 66-year-old M presents to ED for evaluation. Per EMS patient is having increasing leg swelling and increased abdominal distention with drainage from abdomen. Patient was recent admitted to hospital. Patient has history of liver failure. Patient has fluid overload. On last admission patient had paracentesis. Patient was seen here twice in the last few days for similar presentation and was subsequently discharged back to facility. PMD Dr. Brown referred patient to ED for evaluation as his symptoms are not improving. Patient has dementia at baseline. No fevers or chills. No nausea or vomiting. No chest pain or shortness of breath. No aggravating relieving factors. No other associated symptoms GI CONSULT: HPI noted above. GI consulted for abdominal pain and distention 2/ 2 to liver failure. Pt seen on floor, awake and alert NAD. He presents today with low Hgb ~ 8.1, baseline approximately 10 from previous admission. Pt was seen a few weeks prior admitted for MIKI revision. Iron panel unremarkable. During the last admission, we recommended outpatient colonoscopy to evaluate anemia and elevated CEA in which we will proceed this admission. Home Meds Reported Medications Cranberry Fruit Concentrate (CRANBERRY) 450 Mg Capsule, 450 MG PO DAILY 10/09/16 Pantoprazole* (PROTONIX*) 40 Mg Tablet.dr, 40 MG ORAL EVERY 12 HOURS 10/09/16 Magnesium Hydroxide* (MILK OF MAGNESIA*) 400 Mg/5 Ml Oral.susp, 30 ML ORAL QHS 10/09/16 Ascorbic Acid* (ASCORBIC ACID*) 500 Mg Tablet, 500 MG ORAL DAILY 10/09/16 Na Phos,M-B/Na Phos,Di-Ba (FLEET ENEMA EXTRA) 230 Ml Enema, 230 ML RC EVERY 2 DAYS Y for Constipation, EA 10/09/16 Bisacodyl (DULCOLAX) 10 Mg Supp.rect, 10 MG RC DAILY Y for Constipation, SUPP 10/09/16 Sennosides (SENNA) 8.6 Mg Tablet, 2 TAB PO BEDTIME, TAB 10/09/16 Docusate Sodium* (DOCUSATE SODIUM*) 100 Mg Capsule, 100 MG ORAL TWICE A DAY, CAP 10/09/16 Zinc Sulfate (ZINC SULFATE*) 220 Mg Capsule, 220 MG ORAL DAILY, CAP 0 Refills 10/09/16 Multivitamin With Minerals (MULTIVITAMINS WITH MINERALS*) 1 Each Tablet, 1 TAB ORAL DAILY, TAB 10/09/16 Acetaminophen* (ACETAMINOPHEN 325MG TABLET*) 325 Mg Tablet, 650 MG ORAL Q4H Y for For Pain, TAB 10/09/16 Hydrocodone Bit/Acetaminophen 5-325* (NOR[place] 5-325 TABLET*) 1 Each Tablet, 1 TAB ORAL Q4H Y for For Pain, TAB 10/09/16 Amino Acids/Protein Hydrolys (PRO-STAT LIQUID) 30 Ml Liquid.pkt, 30 ML ORAL TWICE A DAY, ML 10/09/16 Tamsulosin Hcl (TAMSULOSIN HCL*) 0.4 Mg Cap.er.24h, 0.4 MG ORAL BID, CAP 10/04/16 Midodrine* (PROAMATINE*) 2.5 Mg Tablet, 2.5 MG ORAL THREE TIMES A DAY, TAB 10/04/16 Finasteride* (PROSCAR*) 5 Mg Tablet, 5 MG ORAL DAILY, #30 TAB 0 Refills 10/04/16 Ergocalciferol (Vitamin D2)* (VITAMIN D*) 50,000 Unit Capsule, 50182 UNIT ORAL MoTh, CAP 10/04/16 Rifaximin* (XIFAXAN*) 550 Mg Tablet, 550 MG ORAL TWICE A DAY for 30 Days, MG 0 Refills 09/09/16 Lactulose (LACTULOSE*) 20 Gm/30 Ml Solution, 15 ML ORAL BID for hold for LBM 09/06/16 Ferrous Sulfate* (FERROUS SULFATE*) 325 Mg Tablet, 325 MG ORAL TWICE A DAY, 0 Refills 09/06/16 Discontinued Reported Medications Pantoprazole* (PROTONIX*) 40 Mg Tablet.dr, 40 MG ORAL EVERY 12 HOURS, TAB 10/04/16 Nystatin* (NYSTATIN*) 15 Gm Cream..g., 1 APPLIC TOPIC THREE TIMES A DAY, GM 10/04/16 Zinc (ZINC) 50 Mg Tablet, 50 MG ORAL DAILY, TAB 09/24/16 Zinc Amino Acid Chelate (ZINC) 50 Mg Tablet, 50 MG ORAL, TAB 09/24/16 Vitamin D (Vitamin D3) 400 Unit Tablet, 23149 UNITS ORAL, TAB 09/24/16 Ascorbic Acid* (VITAMIN C*) 500 Mg Tablet, 500 MG ORAL DAILY, #30 TAB 0 Refills 09/24/16 Aspirin* (ASPIR 81*) 81 Mg Tablet.dr, 81 MG ORAL DAILY, TAB 09/24/16 Hydromorphone HCl (Hydromorphone HCl) 1 Mg/1 Ml Syringe, 1 MG IVP Q4HR Y for Severe Pain (Pain Scale 7-10), MG 09/09/16 Hydromorphone Hcl (DILAUDID) 1 Mg/1 Ml Liquid, 1 MG PO, ML 09/09/16 Acetaminophen (Acetaminophen) 650 Mg/20.3 Ml Solution, 650 MG ORAL Q4HR Y for Mild Pain/Temp > 100.5, ML 0 Refills 09/09/16 Hydrocodone Bit/Acetaminophen 5-325* (NOR[place] 5-325 TABLET*) 1 Each Tablet, 1 TAB ORAL Q4H Y for Moderate Pain (Pain Scale 4-6), TAB 09/09/16 Lactulose (LACTULOSE) 10 Gm/15 Ml Solution, 10 GM PO TID 09/09/16 Ferrous Sulfate (Ferrous Sulfate) 325 Mg Tablet, 1 TAB ORAL TWICE A DAY, #60 TAB 0 Refills 09/09/16 Calcium Carbonate (CALCIUM CARBONATE) 500 Mg Tablet, 500 MG PO BID, TAB 09/09/16 Propranolol HCl (Propranolol HCl) 20 Mg Tablet, 20 MG PO FOUR TIMES A DAY, TAB 09/09/16 Olanzapine* (ZYPREXA*) 5 Mg Tablet, 5 MG ORAL BEDTIME, TAB 09/09/16 Pantoprazole* (PROTONIX*) 40 Mg Tablet.dr, 40 MG ORAL BEFORE BREAKFAST, TAB 09/09/16 Escitalopram Oxalate* (LEXAPRO*) 20 Mg Tablet, 20 MG ORAL DAILY, TAB 09/09/16 Spironolact/Hydrochlorothiazid (ALDACTAZIDE 50-50 TABLET) 1 Each Tablet, 1 TAB ORAL DAILY, TAB 09/09/16 Pantoprazole (PANTOPRAZOLE) 20 Mg Tablet.dr, 20 MG ORAL DAILY, #10 TAB 0 Refills 09/09/16 Spironolact/Hydrochlorothiazid (SPIRONOLACTONE-HCTZ 25-25 TAB) 1 Each Tablet, 1 TAB ORAL DAILY, TAB 09/09/16 Calcium Carbonate (CALCIUM CARBONATE) 500 Mg Tablet, 500 MG PO BID, TAB 09/07/16 Acetaminophen* (ACETAMINOPHEN 325MG TABLET*) 325 Mg Tablet, 650 MG ORAL Q4H/PRN for mild pain/fever >101F 09/06/16 Sennosides (SENNA) 8.6 Mg Tablet, 8.6 MG PO 09/06/16 Na Phos,M-B/Na Phos,Di-Ba* (FLEET ENEMA*) 133 Ml Enema, 133 ML RECTAL PRN 09/06/16 Bisacodyl (DULCOLAX) 10 Mg Supp.rect, 10 MG RC PRN for if MOM not effective 09/06/16 Magnesium Hydroxide* (MILK OF MAGNESIA*) 400 Mg/5 Ml Oral.susp, 30 ML ORAL Daily /PRN 09/06/16 Docusate Sodium* (DOCUSATE SODIUM*) 100 Mg Capsule, 100 MG ORAL TWICE A DAY 09/06/16 Collagenase Clostridium Hist. (Santyl) 30 Gm Oint...g., 1 APPLIC TP Daily/PRN for L trochanter/surgical [id number] 09/06/16 Escitalopram Oxalate* (LEXAPRO*) 20 Mg Tablet, 20 MG ORAL DAILY 09/06/16 Olanzapine* (ZYPREXA*) 5 Mg Tablet, 5 MG ORAL BEDTIME 09/06/16 Spironolactone* (ALDACTONE*) 50 Mg Tablet, 50 MG ORAL DAILY 09/06/16 Rifaximin* (XIFAXAN*) 550 Mg Tablet, 550 MG ORAL TWICE A DAY, 0 Refills 09/06/16 Discontinued Scripts Levofloxacin* (LEVAQUIN*) 500 Mg Tablet, 500 MG ORAL DAILY, #7 TAB Prov:NOAH COLLIER M.D. 10/07/16 Nystatin/Triamcinolone (Nystatin-Triamcinolone Ointm) 15 Gm Oint...g., 1 APPLIC TOPIC TID, #60 GM Prov:NOAH COLLIER M.D. 10/07/16 Med list reviewed/reconciled: Yes Allergies: Coded Allergies: No Known Allergies (Unverified , 10/06/16) Patient History Limited by: medical condition History Provided By: Patient, Medical Record PMH Narrative Past Medical History: HTN, other - liver failure Past Surgical History: none Pertinent Family History: none Social History: Denies: alcohol use, drug use, smoking Immunizations: UTD Reviewed Nursing Documentation: PMH: Agreed, PSxH: Agreed Nursing Documentation-PMH Past Medical History: No History, Except For Hx Hypertension: Yes Hx Gastrointestinal Problems: Yes - Hepatic failure Review of Systems All Other Systems: negative except mentioned in HPI Physical Exam Vital Signs Date Time Temp Pulse Resp B/P Pulse Ox O2 Delivery O2 Flow Rate FiO2 10/09/16 14:00 97.5 94 16 101/58 100 Room Air Sp02 EP Interpretation: reviewed Labs Laboratory Tests Test 10/09/16 14:27 10/09/16 14:40 10/09/16 14:45 10/09/16 16:15 Sodium Level 129 mEQ/L (135-145) L Potassium Level 4.7 mEQ/L (3.4-4.9) Chloride Level 95 mEQ/L (98-107) L Carbon Dioxide Level 19 mEQ/L (20-30) L Anion Gap 15 (5-15) Blood Urea Nitrogen 39 mg/dL (7-23) H Creatinine 1.8 mg/dL (0.7-1.2) H Estimat Glomerular Filtration Rate 46.2 mL/min (>60) Glucose Level 122 mg/dL (74-106) H Calcium Level 8.1 mg/dL (8.6-10.2) L Total Bilirubin 2.4 mg/dL (0.0-1.2) H Direct Bilirubin 1.3 mg/dL (0.1-0.3) H Aspartate Amino Transf (AST/SGOT) 83 U/L (5-40) H Alanine Aminotransferase (ALT/SGPT) 32 U/L (3-41) Alkaline Phosphatase 181 U/L (40-129) H Ammonia 55 umol/L (16-60) Total Protein 6.5 g/dL (6.6-8.7) L Albumin 1.5 g/dL (3.5-5.2) L Globulin 5.0 g/dL Albumin/Globulin Ratio 0.3 (1.0-2.7) L Lipase 49 U/L (< 60) White Blood Count 5.0 K/UL (4.8-10.8) Red Blood Count 2.69 M/UL (4.70-6.10) L Hemoglobin 9.0 G/DL (14.2-18.0) L Hematocrit 28.4 % (42.0-52.0) L Mean Corpuscular Volume 105 FL (80-99) H Mean Corpuscular Hemoglobin 33.6 PG (27.0-31.0) H Mean Corpuscular Hemoglobin Concent 31.9 G/DL (32.0-36.0) L Red Cell Distribution Width 18.9 % (11.6-14.8) H Platelet Count 46 K/UL (150-450) L Mean Platelet Volume 6.4 FL (6.5-10.1) L Neutrophils (%) (Auto) % (45.0-75.0) Lymphocytes (%) (Auto) % (20.0-45.0) Monocytes (%) (Auto) % (1.0-10.0) Eosinophils (%) (Auto) % (0.0-3.0) Basophils (%) (Auto) % (0.0-2.0) Differential Total Cells Counted 100 Neutrophils % (Manual) 75 % (45-75) Lymphocytes % (Manual) 9 % (20-45) L Monocytes % (Manual) 12 % (1-10) H Eosinophils % (Manual) 2 % (0-3) Basophils % (Manual) 0 % (0-2) Band Neutrophils 2 % (0-8) Platelet Estimate Decreased L Platelet Morphology Normal Hypochromasia 1+ Anisocytosis 1+ Macrocytosis 1+ Prothrombin Time 18.7 SEC (9.30-11.50) H Prothromb Time International Ratio 1.8 (0.9-1.1) H Activated Partial Thromboplast Time 40 SEC (23-33) H Lactic Acid Level 2.80 mmol/L (0.66-2.22) H 3.00 mmol/L (0.66-2.22) H Troponin I < 0.30 ng/mL (<=0.30) Urine Color Yellow Urine Appearance Clear Urine pH 5 (4.5-8.0) Urine Specific [place] 1.015 (1.005-1.035) Urine Protein 2+ (NEGATIVE) H Urine Glucose (UA) Negative (NEGATIVE) Urine Ketones Negative (NEGATIVE) Urine Occult Blood 5+ (NEGATIVE) H Urine Nitrite Negative (NEGATIVE) Urine Bilirubin Negative (NEGATIVE) Urine Urobilinogen 1 MG/DL (0.0-1.0) H Urine Leukocyte Esterase 3+ (NEGATIVE) H Urine RBC 10-15 /HPF (0 - 0) H Urine WBC 5-10 /HPF (0 - 0) H Urine Squamous Epithelial Cells None /LPF (NONE/OCC) Urine Bacteria Moderate /HPF (NONE) H Urine Yeast Few /HPF (NONE) H Test 10/10/16 06:50 White Blood Count 4.3 K/UL (4.8-10.8) L Red Blood Count 2.44 M/UL (4.70-6.10) L Hemoglobin 8.1 G/DL (14.2-18.0) L Hematocrit 25.6 % (42.0-52.0) L Mean Corpuscular Volume 105 FL (80-99) H Mean Corpuscular Hemoglobin 33.2 PG (27.0-31.0) H Mean Corpuscular Hemoglobin Concent 31.6 G/DL (32.0-36.0) L Red Cell Distribution Width 18.9 % (11.6-14.8) H Platelet Count 42 K/UL (150-450) L Mean Platelet Volume 7.5 FL (6.5-10.1) Neutrophils (%) (Auto) % (45.0-75.0) Lymphocytes (%) (Auto) % (20.0-45.0) Monocytes (%) (Auto) % (1.0-10.0) Eosinophils (%) (Auto) % (0.0-3.0) Basophils (%) (Auto) % (0.0-2.0) Neutrophils % (Manual) Pending Lymphocytes % (Manual) Pending Platelet Estimate Pending Platelet Morphology Pending Sodium Level 132 mEQ/L (135-145) L Potassium Level 4.3 mEQ/L (3.4-4.9) Chloride Level 97 mEQ/L (98-107) L Carbon Dioxide Level 19 mEQ/L (20-30) L Anion Gap 16 (5-15) H Blood Urea Nitrogen 38 mg/dL (7-23) H Creatinine 1.8 mg/dL (0.7-1.2) H Estimat Glomerular Filtration Rate 46.2 mL/min (>60) Glucose Level 104 mg/dL (74-106) Calcium Level 7.9 mg/dL (8.6-10.2) L Total Bilirubin 2.2 mg/dL (0.0-1.2) H Direct Bilirubin 1.3 mg/dL (0.1-0.3) H Aspartate Amino Transf (AST/SGOT) 75 U/L (5-40) H Alanine Aminotransferase (ALT/SGPT) 29 U/L (3-41) Alkaline Phosphatase 160 U/L (40-129) H Total Protein 5.9 g/dL (6.6-8.7) L Albumin 1.4 g/dL (3.5-5.2) L Globulin 4.5 g/dL Albumin/Globulin Ratio 0.3 (1.0-2.7) L General Appearance: well appearing, no apparent distress, alert Head: normocephalic EENT: normal ENT inspection Neck: supple Respiratory: no respiratory distress Cardiovascular: normal rate Gastrointestinal: distended, ascites Rectal: deferred Neurologic: alert, responsive Psychiatric: judgement/insight normal Skin: normal inspection, normal color, no rash, warm/dry Lymphatic: normal inspection, no adenopathy Current Medications Current Medications Medications (Trade) Dose Ordered Sig/Carolynn Route PRN Reason Start Time Stop Time Status Last Admin Dose Admin Acetaminophen (Tylenol) 650 mg Q4H PRN ORAL For Pain 1-3 10/09/16 20:45 11/08/16 20:44 Acetaminophen/ Hydrocodone Bitart ([place] 5/325) 1 tab Q4H PRN ORAL For Pain 4-10 10/09/16 20:45 10/16/16 20:44 10/10/16 03:09 Bisacodyl (Dulcolax) 10 mg DAILYPRN PRN RECTAL Constipation 10/09/16 20:45 11/08/16 20:44 Docusate Sodium (Colace) 100 mg TWICE A DAY ORAL 10/10/16 09:00 11/09/16 08:59 10/10/16 08:51 Ergocalciferol (Drisdol) 50,000 intlu MoTh ORAL 10/10/16 21:00 11/09/16 20:59 Finasteride (Proscar) 5 mg DAILY ORAL 10/10/16 09:00 11/09/16 08:59 10/10/16 08:51 Lactulose (Cephulac) 10 gm BID ORAL 10/10/16 09:00 11/09/16 08:59 10/10/16 08:51 Levofloxacin 50 ml @ 50 mls/hr Q24H IVPB 10/10/16 11:00 10/17/16 10:59 Magnesium Hydroxide (Mom) 30 ml QHS ORAL 10/09/16 21:00 11/08/16 20:59 10/09/16 22:52 Midodrine (Pro-Amatine) 2.5 mg THREE TIMES A DAY ORAL 10/10/16 09:00 11/09/16 08:59 Multivitamins Therapeutic (Therapeutic Multivitamin) 1 ea DAILY ORAL 10/10/16 09:00 11/09/16 08:59 10/10/16 08:51 Pantoprazole (Protonix) 40 mg EVERY 12 HOURS ORAL 10/09/16 22:00 11/08/16 21:59 10/10/16 08:50 Phytonadione/ Dextrose (Vitamin K/D5W) 55.5 ml @ 222 mls/hr ONCE ONCE IVPB 10/10/16 12:00 10/10/16 12:14 Rifaximin (Xifaxan) 550 mg TWICE A DAY ORAL 10/10/16 09:00 10/17/16 08:59 10/10/16 08:50 Sennosides (Senokot) 8.6 mg BEDTIME ORAL 10/09/16 21:00 11/08/16 20:59 10/09/16 22:54 Tamsulosin HCl (Flomax) 0.4 mg BID ORAL 10/10/16 09:00 11/09/16 08:59 10/10/16 08:50 Zinc Sulfate 220 mg 220 mg DAILY ORAL 10/10/16 09:00 11/09/16 08:59 10/10/16 08:51 GI: Plan Problems: (1) Elevated CEA (2) Anemia (3) Thrombocytopenia (4) End-stage liver disease (5) Coagulopathy (6) LFT elevation (7) Ascites Plan S/P EGD - FINDINGS: 1. Severe portal hypertensive gastropathy. Status post biopsy. >> unremarkable 2. Distal esophageal varices grade I/II without any stigmata. Hep C positive elevated CEA >> 9.6 r/o SBP >> negative on last admission s/p paracentesis today normal ammonia >> cont lactulose + Xifaxan monitor H&H, transfuse prn ppi dc propranolol fu labs PT evaluation poor prognosis THAI SEAMAN 10/11/16 0919: History of Present Illness General Reason for Hospitalization: General Complaint Present Illness Home Meds Reported Medications Cranberry Fruit Concentrate (CRANBERRY) 450 Mg Capsule, 450 MG PO DAILY 10/09/16 Pantoprazole* (PROTONIX*) 40 Mg Tablet.dr, 40 MG ORAL EVERY 12 HOURS 10/09/16 Magnesium Hydroxide* (MILK OF MAGNESIA*) 400 Mg/5 Ml Oral.susp, 30 ML ORAL QHS 10/09/16 Ascorbic Acid* (ASCORBIC ACID*) 500 Mg Tablet, 500 MG ORAL DAILY 10/09/16 Na Phos,M-B/Na Phos,Di-Ba (FLEET ENEMA EXTRA) 230 Ml Enema, 230 ML RC EVERY 2 DAYS Y for Constipation, EA 10/09/16 Bisacodyl (DULCOLAX) 10 Mg Supp.rect, 10 MG RC DAILY Y for Constipation, SUPP 10/09/16 Sennosides (SENNA) 8.6 Mg Tablet, 2 TAB PO BEDTIME, TAB 10/09/16 Docusate Sodium* (DOCUSATE SODIUM*) 100 Mg Capsule, 100 MG ORAL TWICE A DAY, CAP 10/09/16 Zinc Sulfate (ZINC SULFATE*) 220 Mg Capsule, 220 MG ORAL DAILY, CAP 0 Refills 10/09/16 Multivitamin With Minerals (MULTIVITAMINS WITH MINERALS*) 1 Each Tablet, 1 TAB ORAL DAILY, TAB 10/09/16 Acetaminophen* (ACETAMINOPHEN 325MG TABLET*) 325 Mg Tablet, 650 MG ORAL Q4H Y for For Pain, TAB 10/09/16 Hydrocodone Bit/Acetaminophen 5-325* ([place] 5-325 TABLET*) 1 Each Tablet, 1 TAB ORAL Q4H Y for For Pain, TAB 10/09/16 Amino Acids/Protein Hydrolys (PRO-STAT LIQUID) 30 Ml Liquid.pkt, 30 ML ORAL TWICE A DAY, ML 10/09/16 Tamsulosin Hcl (TAMSULOSIN HCL*) 0.4 Mg Cap.er.24h, 0.4 MG ORAL BID, CAP 10/04/16 Midodrine* (PROAMATINE*) 2.5 Mg Tablet, 2.5 MG ORAL THREE TIMES A DAY, TAB 10/04/16 Finasteride* (PROSCAR*) 5 Mg Tablet, 5 MG ORAL DAILY, #30 TAB 0 Refills 10/04/16 Ergocalciferol (Vitamin D2)* (VITAMIN D*) 50,000 Unit Capsule, 14250 UNIT ORAL MoTh, CAP 10/04/16 Rifaximin* (XIFAXAN*) 550 Mg Tablet, 550 MG ORAL TWICE A DAY for 30 Days, MG 0 Refills 09/09/16 Lactulose (LACTULOSE*) 20 Gm/30 Ml Solution, 15 ML ORAL BID for hold for LBM 09/06/16 Ferrous Sulfate* (FERROUS SULFATE*) 325 Mg Tablet, 325 MG ORAL TWICE A DAY, 0 Refills 09/06/16 Discontinued Reported Medications Pantoprazole* (PROTONIX*) 40 Mg Tablet.dr, 40 MG ORAL EVERY 12 HOURS, TAB 10/04/16 Nystatin* (NYSTATIN*) 15 Gm Cream..g., 1 APPLIC TOPIC THREE TIMES A DAY, GM 10/04/16 Zinc (ZINC) 50 Mg Tablet, 50 MG ORAL DAILY, TAB 09/24/16 Zinc Amino Acid Chelate (ZINC) 50 Mg Tablet, 50 MG ORAL, TAB 09/24/16 Vitamin D (Vitamin D3) 400 Unit Tablet, 42410 UNITS ORAL, TAB 09/24/16 Ascorbic Acid* (VITAMIN C*) 500 Mg Tablet, 500 MG ORAL DAILY, #30 TAB 0 Refills 09/24/16 Aspirin* (ASPIR 81*) 81 Mg Tablet.dr, 81 MG ORAL DAILY, TAB 09/24/16 Hydromorphone HCl (Hydromorphone HCl) 1 Mg/1 Ml Syringe, 1 MG IVP Q4HR Y for Severe Pain (Pain Scale 7-10), MG 09/09/16 Hydromorphone Hcl (DILAUDID) 1 Mg/1 Ml Liquid, 1 MG PO, ML 09/09/16 Acetaminophen (Acetaminophen) 650 Mg/20.3 Ml Solution, 650 MG ORAL Q4HR Y for Mild Pain/Temp > 100.5, ML 0 Refills 09/09/16 Hydrocodone Bit/Acetaminophen 5-325* ([place] 5-325 TABLET*) 1 Each Tablet, 1 TAB ORAL Q4H Y for Moderate Pain (Pain Scale 4-6), TAB 09/09/16 Lactulose (LACTULOSE) 10 Gm/15 Ml Solution, 10 GM PO TID 09/09/16 Ferrous Sulfate (Ferrous Sulfate) 325 Mg Tablet, 1 TAB ORAL TWICE A DAY, #60 TAB 0 Refills 09/09/16 Calcium Carbonate (CALCIUM CARBONATE) 500 Mg Tablet, 500 MG PO BID, TAB 09/09/16 Propranolol HCl (Propranolol HCl) 20 Mg Tablet, 20 MG PO FOUR TIMES A DAY, TAB 09/09/16 Olanzapine* (ZYPREXA*) 5 Mg Tablet, 5 MG ORAL BEDTIME, TAB 09/09/16 Pantoprazole* (PROTONIX*) 40 Mg Tablet.dr, 40 MG ORAL BEFORE BREAKFAST, TAB 09/09/16 Escitalopram Oxalate* (LEXAPRO*) 20 Mg Tablet, 20 MG ORAL DAILY, TAB 09/09/16 Spironolact/Hydrochlorothiazid (ALDACTAZIDE 50-50 TABLET) 1 Each Tablet, 1 TAB ORAL DAILY, TAB 09/09/16 Pantoprazole (PANTOPRAZOLE) 20 Mg Tablet.dr, 20 MG ORAL DAILY, #10 TAB 0 Refills 09/09/16 Spironolact/Hydrochlorothiazid (SPIRONOLACTONE-HCTZ 25-25 TAB) 1 Each Tablet, 1 TAB ORAL DAILY, TAB 09/09/16 Calcium Carbonate (CALCIUM CARBONATE) 500 Mg Tablet, 500 MG PO BID, TAB 09/07/16 Acetaminophen* (ACETAMINOPHEN 325MG TABLET*) 325 Mg Tablet, 650 MG ORAL Q4H/PRN for mild pain/fever >101F 09/06/16 Sennosides (SENNA) 8.6 Mg Tablet, 8.6 MG PO 09/06/16 Na Phos,M-B/Na Phos,Di-Ba* (FLEET ENEMA*) 133 Ml Enema, 133 ML RECTAL PRN 09/06/16 Bisacodyl (DULCOLAX) 10 Mg Supp.rect, 10 MG RC PRN for if MOM not effective 09/06/16 Magnesium Hydroxide* (MILK OF MAGNESIA*) 400 Mg/5 Ml Oral.susp, 30 ML ORAL Daily /PRN 09/06/16 Docusate Sodium* (DOCUSATE SODIUM*) 100 Mg Capsule, 100 MG ORAL TWICE A DAY 09/06/16 Collagenase Clostridium Hist. (Santyl) 30 Gm Oint...g., 1 APPLIC TP Daily/PRN for L trochanter/surgical [id number] 09/06/16 Escitalopram Oxalate* (LEXAPRO*) 20 Mg Tablet, 20 MG ORAL DAILY 09/06/16 Olanzapine* (ZYPREXA*) 5 Mg Tablet, 5 MG ORAL BEDTIME 09/06/16 Spironolactone* (ALDACTONE*) 50 Mg Tablet, 50 MG ORAL DAILY 09/06/16 Rifaximin* (XIFAXAN*) 550 Mg Tablet, 550 MG ORAL TWICE A DAY, 0 Refills 09/06/16 Discontinued Scripts Levofloxacin* (LEVAQUIN*) 500 Mg Tablet, 500 MG ORAL DAILY, #7 TAB Prov:NOAH COLLIER M.D. 10/07/16 Nystatin/Triamcinolone (Nystatin-Triamcinolone Ointm) 15 Gm Oint...g., 1 APPLIC TOPIC TID, #60 GM Prov:NOAH COLLIER M.D. 10/07/16 Allergies: Coded Allergies: No Known Allergies (Unverified , 10/06/16) GI: Plan Plan The patient was seen and examined at bedside and all new and available data was reviewed in the patients chart. I agree with the above findings, impression and plan. (Patient seen earlier today. Signature stamp does not reflect patient encounter time.). -Bren Javier MD NSongPSong October 10, 2016 11:25 THAI SEAMAN October 11, 2016 09:19
[2016-10-10 11:41] LABS: ANISOCYTOSIS 2+; BAND NEUTROPHILS % (MANUAL) 0 % (0-8); BASOPHILS % (MANUAL) 1 % (0-2); EOSINOPHILS % (MANUAL) 1 % (0-3); HYPOCHROMASIA 1+; LYMPHOCYTES % (MANUAL) 11 % (20-45); MACROCYTES 1+; NEUTROPHILS % (MANUAL) 81 % (45-75); PLATELET ESTIMATE DECREASED; PLATELET MORPHOLOGY NORMAL; TOTAL CELLS COUNTED 100
[2016-10-10 11:43] VITALS: BP 127/83
[2016-10-10] MEDS ORDERED: Phytonadione 1 MG in D5W 55 ML IVPB ONE (12:00)
[2016-10-10 13:22] VITALS: BP 94/64
--- NOTE | 2016-10-10 15:02 | Consultation ---
Consult Note Consult Note ID Dic# [id number] Assessment/Plan A: No evid of sepsis at this time SP recent Paracentesis w no evidence of SPB No evidence of surgical site infection at this time Hepatitis C antibody + HIV : neg Depression Hx of recent Hypotension due to bradycardia Dementia Alcohol abuse Anemia History of left hip surgery [address] of the pelvis, left hip : hemiarthroplasty, fracture of intertrochanteric region of the femur, soft tissue swelling, hematoma, and ascites PLAN: Monitor the patient off of antibiotics Monitor CBC Monitor BMP Monitor cultures urin thank you CHAY DOMINGO M.D. October 10, 2016 15:02
--- NOTE | 2016-10-10 15:25 | Consultation ---
Consult Note Consult Note Chief Complaint: General Complaint 66-year-old M presents to ED for evaluation. Per EMS patient is having increasing leg swelling and increased abdominal distention with drainage from abdomen. Patient was recent admitted to hospital. Patient has history of liver failure. Patient has fluid overload. On last admission patient had paracentesis. Patient was seen here twice in the last few days for similar presentation and was subsequently discharged back to facility. PMD Dr. Oden referred patient to ED for evaluation as his symptoms are not improving. Patient has dementia at baseline. No fevers or chills. No nausea or vomiting. No chest pain or shortness of breath. No aggravating relieving factors. No other associated symptoms Past Medical History: HTN, other - liver failure Hx Hypertension: Yes Hx Gastrointestinal Problems: Yes - Hepatic failure Assessment/Plan status: Acute renal failure- Severe Anemia h/o HyperKalemia- resolved Proteinuria UTI High INR others: 1. s/p Status post mechanical fall. 2. Left periprosthetic femoral fracture. 3. Alcoholic liver cirrhosis. 4. s/p Elevated transaminase. 5. 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 6. Elevated tumor markers (CEA, AFP/alpha-fetoprotein). 7. Acute hepatic encephalopathy. 8. Hypertension. 9. Dementia. 10. Psychosis. 11. History of hemiarthroplasty, left hip, recent. 12. Hepatitis C. 13. History of alcohol abuse. 14. Anemia of chronic disease. 15. Thrombocytopenia, secondary to alcohol abuse. Plan; Transfuse as needed Midodrine- hold mind altering meds- antibiotics - avoid nephrotoxics urine studies monitor renal parameters Tap Ascitis PRN consider comfort care- prognosis dismal per orders PRINCESS PALACIO October 10, 2016 15:25
[2016-10-10 15:59] VITALS: BP 95/59
--- NOTE | 2016-10-10 18:01 | History and Physical Report ---
DATE OF ADMISSION: 10/09/2016 SOURCE OF INFORMATION: EMR. HISTORY OF PRESENT ILLNESS: The patient is a 66-year-old male with multiple medical problems, including but not limited to liver cirrhosis, who is currently lives in a senior living. The patient is status post at least two times paracentesis, each five to six liters. The patient is a status post ER paracentesis at least one time couple days ago. Again, the patient demonstrated extreme fluid retention, oozing fluid out of the legs and abdomen area have been reported. The patient is complaining of pain in these areas. No chest pain. No shortness of breath. The patient is demented, limited source of information. REVIEW OF SYSTEMS: Limited evaluation, within this limitation 10-point of review of system has been reviewed. The pertinent positives and negatives have been reported. PAST MEDICAL HISTORY: Depression, hypertension, dementia, history of alcoholic cirrhosis, anemia and blood transfusion, and left-sided hip fracture status post two times surgery. PAST SURGICAL HISTORY: Left hip surgery two times approximately in July and August, with the most recent one in [facility]. ALLERGIES: NKDA. SOCIAL HISTORY: Positive for prior history of alcoholism. The patient currently resides in a nursing home facility. He is to presented by his sister, who has DPOA. FAMILY HISTORY: Reviewed and noncontributory. CODE STATUS: Full code for now (we will discuss the need for palliative care with the DPOA). PHYSICAL EXAMINATION: VITAL SIGNS: Blood pressure 100/50, temperature 97.5 degrees, pulse oximetry 100% on room air, and pulse rate is 90-100. HEAD AND NECK: Atraumatic and normocephalic. CHEST: Clear to auscultation. HEART: S1 and S2, regular rate and rhythm. ABDOMEN: Positive for shifting dullness. Positive for minimal tenderness. NEUROLOGY: The patient is awake, alert x1 and grossly demented, this is patient's baseline. MUSCULOSKELETAL: Cachectic appearance. Positive for anasarca, particularly in the buttock and lower extremities bilaterally. LABORATORY AND DIAGNOSTIC DATA: Lab results dated 10/09/2016 shows WBC 5, hemoglobin 9, and platelets 46,000. Sodium 129, potassium 4.7, BUN 39, and creatinine 1.8. AST 83. Albumin 1.5. Urinalysis shows moderate bacteria and 5+ blood. INR 1.8. ASSESSMENT: 1. Abdominal pain secondary to recurrent ascites, possibly of infection cannot be excluded. 2. Anasarca, multifactorial. 3. Status post mechanical fall and surgery in the left hip twice. 4. Alcoholic liver cirrhosis. 5. Hypercoagulation. 6. Elevated tumor markers, possibility of malignancy cannot be excluded. 7. Urinary tract infection. 8. Hypertension. 9. Chronic hepatic encephalopathy. 10. Hepatitis C. 11. History of alcohol abuse. 12. Thrombocytopenia. PLAN OF CARE: Nephrology, GI, Cardiology and Infectious Disease services have been consulted. I will start the patient on Levaquin 500 mg daily. Provid potassium 1 mg subcutaneous x1. We will type and cross two units. We will hold on transfusion. Avoid any medication that affects the platelets. Shanita Oden M.D. DR: ELISHA JOB#: [id number] CC: LEATHA
--- NOTE | 2016-10-10 19:08 | Cardiology Progress Note ---
Assessment/Plan Assessment/Plan The patient is seen and examined, full consult note will be dictated. Objective Last 24 Hour Vital Signs Date Time Temp Pulse Resp B/P Pulse Ox O2 Delivery O2 Flow Rate FiO2 10/10/16 15:59 96.3 97 19 95/59 100 Nasal Cannula 2.0 10/10/16 13:22 100 20 94/64 100 Nasal Cannula 2.0 10/10/16 11:43 97.3 99 21 127/83 100 Room Air 10/10/16 07:41 97.2 100 19 109/57 98 Room Air 10/10/16 04:08 97.2 10/10/16 04:00 97.3 98 18 104/57 98 Room Air 10/09/16 23:53 97.2 88 18 96/49 97 Room Air 10/09/16 20:00 97.9 92 18 102/68 97 Room Air Intake and Output 10/09/16 10/10/16 19:00 07:00 Intake Total 2710 ml 275 ml Output Total 500 ml Balance 2710 ml -225 ml Intake Oral 275 ml IV Total 2710 ml Output Urine Total 500 ml # Voids 1 Laboratory Tests Test 10/10/16 06:50 White Blood Count 4.3 K/UL (4.8-10.8) L Red Blood Count 2.44 M/UL (4.70-6.10) L Hemoglobin 8.1 G/DL (14.2-18.0) L Hematocrit 25.6 % (42.0-52.0) L Mean Corpuscular Volume 105 FL (80-99) H Mean Corpuscular Hemoglobin 33.2 PG (27.0-31.0) H Mean Corpuscular Hemoglobin Concent 31.6 G/DL (32.0-36.0) L Red Cell Distribution Width 18.9 % (11.6-14.8) H Platelet Count 42 K/UL (150-450) L Mean Platelet Volume 7.5 FL (6.5-10.1) Neutrophils (%) (Auto) % (45.0-75.0) Lymphocytes (%) (Auto) % (20.0-45.0) Monocytes (%) (Auto) % (1.0-10.0) Eosinophils (%) (Auto) % (0.0-3.0) Basophils (%) (Auto) % (0.0-2.0) Differential Total Cells Counted 100 Neutrophils % (Manual) 81 % (45-75) H Lymphocytes % (Manual) 11 % (20-45) L Monocytes % (Manual) 6 % (1-10) Eosinophils % (Manual) 1 % (0-3) Basophils % (Manual) 1 % (0-2) Band Neutrophils 0 % (0-8) Platelet Estimate Decreased L Platelet Morphology Normal Hypochromasia 1+ Anisocytosis 2+ Macrocytosis 1+ Sodium Level 132 mEQ/L (135-145) L Potassium Level 4.3 mEQ/L (3.4-4.9) Chloride Level 97 mEQ/L (98-107) L Carbon Dioxide Level 19 mEQ/L (20-30) L Anion Gap 16 (5-15) H Blood Urea Nitrogen 38 mg/dL (7-23) H Creatinine 1.8 mg/dL (0.7-1.2) H Estimat Glomerular Filtration Rate 46.2 mL/min (>60) Glucose Level 104 mg/dL (74-106) Calcium Level 7.9 mg/dL (8.6-10.2) L Total Bilirubin 2.2 mg/dL (0.0-1.2) H Direct Bilirubin 1.3 mg/dL (0.1-0.3) H Aspartate Amino Transf (AST/SGOT) 75 U/L (5-40) H Alanine Aminotransferase (ALT/SGPT) 29 U/L (3-41) Alkaline Phosphatase 160 U/L (40-129) H Total Protein 5.9 g/dL (6.6-8.7) L Albumin 1.4 g/dL (3.5-5.2) L Globulin 4.5 g/dL Albumin/Globulin Ratio 0.3 (1.0-2.7) L Microbiology Date/Time Source Procedure Growth Status 10/09/16 14:45 Urine,Clean Catch Urine Culture - Preliminary Resulted ASHLEY URIBE October 10, 2016 19:08
[2016-10-10 20:00] VITALS: BP 108/73
[2016-10-10] MEDS ORDERED: OLANZapine 2.5mg tab ORAL SCH (21:00)
[2016-10-10] MEDS ORDERED: Vitamin D 50,000 units cap ORAL SCH (21:00)
[2016-10-10] MEDS: Milk of Magnesia 30ml Ud ORAL SCH (21:01)
--- NOTE | 2016-10-10 22:56 | Consultation ---
History of Present Illness General Date patient seen: October 10, 2016 Chief Complaint: General Complaint Referring physician: REGLA BROWN Reason for Consultation: CIRRHOSIS Present Illness HPI 66-year-old Male with hx of end-stage liver disease, recurrent ascites, anasarca , Dementia, snf resident presented to ED for evaluation of increasing leg swelling and increased abdominal distention. No fevers or chills. No nausea or vomiting. No chest pain or shortness of breath. Allergies: Coded Allergies: No Known Allergies (Unverified , 10/06/16) Medication History Scheduled Amino Acids/Protein Hydrolys (Pro-Stat Liquid), 30 ML ORAL TWICE A DAY, ( Reported) Ascorbic Acid* (Ascorbic Acid*), 500 MG ORAL DAILY, (Reported) Cranberry Fruit Concentrate (Cranberry), 450 MG PO DAILY, (Reported) Docusate Sodium* (Docusate Sodium*), 100 MG ORAL TWICE A DAY, (Reported) Ergocalciferol (Vitamin D2)* (Vitamin D*), 50,000 UNIT ORAL MoTh, (Reported) Ferrous Sulfate* (Ferrous Sulfate*), 325 MG ORAL TWICE A DAY, (Reported) Finasteride* (Proscar*), 5 MG ORAL DAILY, (Reported) Lactulose (Lactulose*), 15 ML ORAL BID, (Reported) Magnesium Hydroxide* (Milk Of Magnesia*), 30 ML ORAL QHS, (Reported) Midodrine* (Proamatine*), 2.5 MG ORAL THREE TIMES A DAY, (Reported) Multivitamin With Minerals (Multivitamins With Minerals*), 1 TAB ORAL DAILY, ( Reported) Pantoprazole* (Protonix*), 40 MG ORAL EVERY 12 HOURS, (Reported) Rifaximin* (Xifaxan*), 550 MG ORAL TWICE A DAY, (Reported) Sennosides (Senna), 2 TAB PO BEDTIME, (Reported) Tamsulosin Hcl (Tamsulosin Hcl*), 0.4 MG ORAL BID, (Reported) Zinc Sulfate (Zinc Sulfate*), 220 MG ORAL DAILY, (Reported) Scheduled PRN Acetaminophen* (Acetaminophen 325MG Tablet*), 650 MG ORAL Q4H PRN for For Pain, (Reported) Bisacodyl (Dulcolax), 10 MG RC DAILY PRN for Constipation, (Reported) Hydrocodone Bit/Acetaminophen 5-325* (Warner 5-325 Tablet*), 1 TAB ORAL Q4H PRN for For Pain, (Reported) Na Phos,M-B/Na Phos,Di-Ba (Fleet Enema Extra), 230 ML RC EVERY 2 DAYS PRN for Constipation, (Reported) Discontinued Medications Acetaminophen (Acetaminophen), 650 MG ORAL Q4HR PRN for Mild Pain/Temp > 100.5, (Reported) Discontinued Reason: Therapy completed Acetaminophen* (Acetaminophen 325MG Tablet*), 650 MG ORAL Q4H/PRN, (Reported) Discontinued Reason: Therapy completed Ascorbic Acid* (Vitamin C*), 500 MG ORAL DAILY, (Reported) Discontinued Reason: Therapy completed Aspirin* (Aspir 81*), 81 MG ORAL DAILY, (Reported) Discontinued Reason: Therapy completed Bisacodyl (Dulcolax), 10 MG RC PRN, (Reported) Discontinued Reason: Therapy completed Calcium Carbonate (Calcium Carbonate), 500 MG PO BID, (Reported) Discontinued Reason: Therapy completed Calcium Carbonate (Calcium Carbonate), 500 MG PO BID, (Reported) Discontinued Reason: Therapy completed Collagenase Clostridium Hist. (Santyl), 1 APPLIC TP Daily/PRN, (Reported) Discontinued Reason: Therapy completed Docusate Sodium* (Docusate Sodium*), 100 MG ORAL TWICE A DAY, (Reported) Discontinued Reason: Therapy completed Escitalopram Oxalate* (Lexapro*), 20 MG ORAL DAILY, (Reported) Discontinued Reason: Therapy completed Escitalopram Oxalate* (Lexapro*), 20 MG ORAL DAILY, (Reported) Discontinued Reason: Therapy completed Ferrous Sulfate (Ferrous Sulfate), 1 TAB ORAL TWICE A DAY, (Reported) Discontinued Reason: Therapy completed Hydrocodone Bit/Acetaminophen 5-325* (Warner 5-325 Tablet*), 1 TAB ORAL Q4H PRN for Moderate Pain (Pain Scale 4-6), (Reported) Discontinued Reason: Therapy completed Hydromorphone HCl (Hydromorphone HCl), 1 MG IVP Q4HR PRN for Severe Pain (Pain Scale 7-10), (Reported) Discontinued Reason: Therapy completed Hydromorphone Hcl (Dilaudid), 1 MG PO, (Reported) Discontinued Reason: Therapy completed Lactulose (Lactulose), 10 GM PO TID, (Reported) Discontinued Reason: Therapy completed Levofloxacin* (Levaquin*), 500 MG ORAL DAILY Discontinued Reason: Therapy completed Magnesium Hydroxide* (Milk Of Magnesia*), 30 ML ORAL Daily/PRN, (Reported) Discontinued Reason: Therapy completed Na Phos,M-B/Na Phos,Di-Ba* (Fleet Enema*), 133 ML RECTAL PRN, (Reported) Discontinued Reason: Therapy completed Nystatin* (Nystatin*), 1 APPLIC TOPIC THREE TIMES A DAY, (Reported) Discontinued Reason: Therapy completed Nystatin/Triamcinolone (Nystatin-Triamcinolone Ointm), 1 APPLIC TOPIC TID Discontinued Reason: Therapy completed Olanzapine* (Zyprexa*), 5 MG ORAL BEDTIME, (Reported) Discontinued Reason: Therapy completed Olanzapine* (Zyprexa*), 5 MG ORAL BEDTIME, (Reported) Discontinued Reason: Therapy completed Pantoprazole (Pantoprazole), 20 MG ORAL DAILY, (Reported) Discontinued Reason: Therapy completed Pantoprazole* (Protonix*), 40 MG ORAL BEFORE BREAKFAST, (Reported) Discontinued Reason: Therapy completed Pantoprazole* (Protonix*), 40 MG ORAL EVERY 12 HOURS, (Reported) Discontinued Reason: Therapy completed Propranolol HCl (Propranolol HCl), 20 MG PO FOUR TIMES A DAY, (Reported) Discontinued Reason: Therapy completed Rifaximin* (Xifaxan*), 550 MG ORAL TWICE A DAY, (Reported) Discontinued Reason: Therapy completed Sennosides (Senna), 8.6 MG PO, (Reported) Discontinued Reason: Therapy completed Spironolact/Hydrochlorothiazid (Spironolactone-Hctz 25-25 Tab), 1 TAB ORAL DAILY , (Reported) Discontinued Reason: Therapy completed Spironolact/Hydrochlorothiazid (Aldactazide 50-50 Tablet), 1 TAB ORAL DAILY, ( Reported) Discontinued Reason: Therapy completed Spironolactone* (Aldactone*), 50 MG ORAL DAILY, (Reported) Discontinued Reason: Therapy completed Vitamin D (Vitamin D3), 50,000 UNITS ORAL, (Reported) Discontinued Reason: Therapy completed Zinc (Zinc), 50 MG ORAL DAILY, (Reported) Discontinued Reason: Therapy completed Zinc Amino Acid Chelate (Zinc), 50 MG ORAL, (Reported) Discontinued Reason: Therapy completed Patient History Healthcare decision maker Resuscitation status Full Code Advanced Directive on File Review of Systems All Other Systems: negative except mentioned in HPI Physical Exam General Appearance: cachetic Lines, tubes and drains: peripheral HEENT: normocephalic, atraumatic Neck: non-tender, normal alignment Respiratory/Chest: rhonchi - left, rhonchi - right Cardiovascular/Chest: normal peripheral pulses, regular rhythm Abdomen: distended Extremities: severe edema, pitting 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 II-XII grossly normal, no motor/sensory deficits Lymphatic: anterior cervical, posterior cervical (L) Last 24 Hour Vital Signs Date Time Temp Pulse Resp B/P Pulse Ox O2 Delivery O2 Flow Rate FiO2 10/10/16 20:00 97.1 95 20 108/73 100 Nasal Cannula 10/10/16 15:59 96.3 97 19 95/59 100 Nasal Cannula 2.0 10/10/16 13:22 100 20 94/64 100 Nasal Cannula 2.0 10/10/16 11:43 97.3 99 21 127/83 100 Room Air 10/10/16 07:41 97.2 100 19 109/57 98 Room Air 10/10/16 04:08 97.2 10/10/16 04:00 97.3 98 18 104/57 98 Room Air 10/09/16 23:53 97.2 88 18 96/49 97 Room Air Intake and Output 10/09/16 10/10/16 19:00 07:00 Intake Total 2710 ml 275 ml Output Total 500 ml Balance 2710 ml -225 ml Intake Oral 275 ml IV Total 2710 ml Output Urine Total 500 ml # Voids 1 Laboratory Tests Test 10/10/16 06:50 White Blood Count 4.3 K/UL (4.8-10.8) L Red Blood Count 2.44 M/UL (4.70-6.10) L Hemoglobin 8.1 G/DL (14.2-18.0) L Hematocrit 25.6 % (42.0-52.0) L Mean Corpuscular Volume 105 FL (80-99) H Mean Corpuscular Hemoglobin 33.2 PG (27.0-31.0) H Mean Corpuscular Hemoglobin Concent 31.6 G/DL (32.0-36.0) L Red Cell Distribution Width 18.9 % (11.6-14.8) H Platelet Count 42 K/UL (150-450) L Mean Platelet Volume 7.5 FL (6.5-10.1) Neutrophils (%) (Auto) % (45.0-75.0) Lymphocytes (%) (Auto) % (20.0-45.0) Monocytes (%) (Auto) % (1.0-10.0) Eosinophils (%) (Auto) % (0.0-3.0) Basophils (%) (Auto) % (0.0-2.0) Differential Total Cells Counted 100 Neutrophils % (Manual) 81 % (45-75) H Lymphocytes % (Manual) 11 % (20-45) L Monocytes % (Manual) 6 % (1-10) Eosinophils % (Manual) 1 % (0-3) Basophils % (Manual) 1 % (0-2) Band Neutrophils 0 % (0-8) Platelet Estimate Decreased L Platelet Morphology Normal Hypochromasia 1+ Anisocytosis 2+ Macrocytosis 1+ Sodium Level 132 mEQ/L (135-145) L Potassium Level 4.3 mEQ/L (3.4-4.9) Chloride Level 97 mEQ/L (98-107) L Carbon Dioxide Level 19 mEQ/L (20-30) L Anion Gap 16 (5-15) H Blood Urea Nitrogen 38 mg/dL (7-23) H Creatinine 1.8 mg/dL (0.7-1.2) H Estimat Glomerular Filtration Rate 46.2 mL/min (>60) Glucose Level 104 mg/dL (74-106) Calcium Level 7.9 mg/dL (8.6-10.2) L Total Bilirubin 2.2 mg/dL (0.0-1.2) H Direct Bilirubin 1.3 mg/dL (0.1-0.3) H Aspartate Amino Transf (AST/SGOT) 75 U/L (5-40) H Alanine Aminotransferase (ALT/SGPT) 29 U/L (3-41) Alkaline Phosphatase 160 U/L (40-129) H Total Protein 5.9 g/dL (6.6-8.7) L Albumin 1.4 g/dL (3.5-5.2) L Globulin 4.5 g/dL Albumin/Globulin Ratio 0.3 (1.0-2.7) L Height (Feet): 5 Height (Inches): 9.00 Weight (Pounds): 160 Medications Current Medications Medications (Trade) Dose Ordered Sig/Carolynn Route PRN Reason Start Time Stop Time Status Last Admin Dose Admin Acetaminophen (Tylenol) 650 mg Q4H PRN ORAL For Pain 1-3 10/09/16 20:45 11/08/16 20:44 Acetaminophen/ Hydrocodone Bitart (Warner 5/325) 1 tab Q4H PRN ORAL For Pain 4-10 10/09/16 20:45 10/16/16 20:44 10/10/16 03:09 Bisacodyl (Dulcolax) 10 mg DAILYPRN PRN RECTAL Constipation 10/09/16 20:45 11/08/16 20:44 Docusate Sodium (Colace) 100 mg TWICE A DAY ORAL 10/10/16 09:00 11/09/16 08:59 10/10/16 17:03 Ergocalciferol (Drisdol) 50,000 intlu MoTh ORAL 10/10/16 21:00 11/09/16 20:59 10/10/16 21:04 Finasteride (Proscar) 5 mg DAILY ORAL 10/10/16 09:00 11/09/16 08:59 10/10/16 08:51 Lactulose (Cephulac) 10 gm BID ORAL 10/10/16 09:00 11/09/16 08:59 10/10/16 17:02 Levofloxacin (Levaquin) 50 ml @ 50 mls/hr Q24H IVPB 10/10/16 11:00 10/17/16 10:59 10/10/16 14:07 Magnesium Hydroxide (Mom) 30 ml QHS ORAL 10/09/16 21:00 11/08/16 20:59 10/10/16 21:01 Midodrine (Pro-Amatine) 2.5 mg THREE TIMES A DAY ORAL 10/10/16 09:00 11/09/16 08:59 10/10/16 17:02 Multivitamins Therapeutic (Therapeutic Multivitamin) 1 ea DAILY ORAL 10/10/16 09:00 11/09/16 08:59 10/10/16 08:51 Olanzapine (ZyPREXA) 2.5 mg BEDTIME ORAL 10/10/16 21:00 11/09/16 20:59 10/10/16 21:01 Pantoprazole (Protonix) 40 mg EVERY 12 HOURS ORAL 10/09/16 22:00 11/08/16 21:59 10/10/16 21:02 Rifaximin (Xifaxan) 550 mg TWICE A DAY ORAL 10/10/16 09:00 10/17/16 08:59 10/10/16 17:02 Sennosides (Senokot) 8.6 mg BEDTIME ORAL 10/09/16 21:00 11/08/16 20:59 10/10/16 21:02 Tamsulosin HCl (Flomax) 0.4 mg BID ORAL 10/10/16 09:00 11/09/16 08:59 10/10/16 17:02 Zinc Sulfate 220 mg 220 mg DAILY ORAL 10/10/16 09:00 11/09/16 08:59 10/10/16 08:51 Assessment/Plan Problem List: (1) Acute hepatic encephalopathy ICD Codes: K72.00 - Acute and subacute hepatic failure without coma SNOMED: 70328073 (2) Anasarca ICD Codes: R60.1 - Generalized edema SNOMED: 367186222, 671296027 (3) Coagulopathy ICD Codes: D68.9 - Coagulation defect, unspecified SNOMED: 08660356 (4) Thrombocytopenia ICD Codes: D69.6 - Thrombocytopenia, unspecified SNOMED: 996131125 (5) Elevated CEA ICD Codes: R97.0 - Elevated carcinoembryonic antigen [CEA] SNOMED: 24434774, 967048023 (6) hep c (7) End-stage liver disease ICD Codes: K72.90 - Hepatic failure, unspecified without coma SNOMED: 175792350 Assessment/Plan supportive care lactulose paracentesis dvt prophylaxis social service to arrange family meeting for plan of care discussion pt will benefit from hospice care. CIRA KOCH October 10, 2016 22:56
--- NOTE | 2016-10-10 23:31 | Consultation ---
DATE OF CONSULTATION: INFECTIOUS DISEASE CONSULTATION: REFERRING PHYSICIAN: Shanita Oden M.D. REASON FOR CONSULTATION: Evaluation of patient for possible sepsis and need for antibiotics. HISTORY OF PRESENT ILLNESS: The patient is a 66-year-old male well known to our service from prior admission who was admitted to this medical center due to shortness of breath. The patient denied having cough. Also, the patient with increased swelling of bilateral lower extremity. The patient has a left heel wound without any discharge. Also, the patient has been complaining of abdominal distention. Infectious Disease consultation has been requested for further evaluation of the patient for possible need for antibiotic treatment of cellulitis and sepsis. PAST MEDICAL HISTORY: Significant for, 1. Cirrhosis. 2. Hepatitis C. 3. History of depression. 4. History of hypertension and bradycardia in the past. 5. History of dementia. 6. History of alcohol abuse. 7. History of anemia. 8. History of left hip surgery four months ago. 9. History of ascites with the recent paracentesis, but did not show any evidence of SBP. MEDICATIONS: Currently is off antibiotics. The patient received one dose of Unasyn in the emergency room. SOCIAL HISTORY: As mentioned above. FAMILY HISTORY: Noncontributory. REVIEW OF SYSTEMS: HEENT: No recent change in vision or hearing. Pulmonary: Shortness of breath, but no cough. Cardiovascular: As mentioned above. Gastrointestinal/Abdomen: As mentioned above. Genitourinary: No dysuria. PHYSICAL EXAMINATION: VITAL SIGNS: Temperature 97 degrees, blood pressure 122/82, pulse 99, and respiratory rate 20. HEENT: Mild pale conjunctivae. No icterus. NECK: No lymphadenopathy. CHEST: No wheezes. HEART: S1 and S2. ABDOMEN: Soft, obese, distended, and nontender. EXTREMITIES: The patient has bilateral lower extremity pitting edema. Left heel wound unstageable decubitus, no purulent discharge or erythema suggestive of infectious process. NEUROLOGIC: Awake, alert, and lethargic. LABORATORY AND DIAGNOSTIC DATA: WBC 4.3, hemoglobin 8, and platelets 42,000. UA shows 5-10 white blood cells. BUN 38 and creatinine 1.8. AST 75, ALT 29, and alkaline phosphatase 160. Hepatitis C antibody positive. HIV test is negative. Urine culture is pending. ASSESSMENT: The patient is a 66-year-old male with multiple medical problems who has been admitted to this medical center with shortness of breath that appears to be due to increase of ascitic fluid and mild pulmonary edema. The patient does not have cough. No leukocytosis. No fever. There is no evidence of cellulitis on the wound. Of note, no signs of infection. PLAN: 1. We will monitor the patient off antibiotics. 2. Monitor CBC and monitor BMP. 3. Monitor cultures. 4. Based on the patient's clinical course and labs, we will do further recommendation. Thank you, Dr. Nobles, for allowing me to participate in the care of this patient. I will follow the patient with you during this hospitalization. Marcos Ricketts M.D. DR: Amira JOB#: [id number] CC:
[2016-10-11] VITALS (7 sets, daily range): BP systolic 94–115; BP diastolic 58–72
--- NOTE | 2016-10-11 00:01 | Consultation ---
DATE OF CONSULTATION: 10/10/2016 HISTORY OF PRESENT ILLNESS: The patient is a 66-year-old male with history of hypertension, liver failure, dementia, and psychotic disorder, who has been admitted to the hospital due to increasing leg swelling. The patient also presented with increased abdominal distention with diarrhea. The patient is presenting with impairment of memory. He is also disorganized and not able to be engaged during the evaluation and presenting with waxing and waning consciousness. PAST PSYCHIATRIC HISTORY: Psychotic disorder and dementia. PAST MEDICAL HISTORY: Includes anemia, UTI, liver failure and hypertension. ALLERGIES: No known drug allergies. SUBSTANCE ABUSE HISTORY: No history of illicit drug use or alcohol. Nonsmoker. MENTAL STATUS EXAMINATION: The patient is alert, oriented, and not engaged during the evaluation. Mood is neutral. Affect is constricted. Congruent mood. Thought process, there is a paucity of thought content. Cognition is impaired. ASSESSMENT: AXIS I Delirium due to general medical condition, dementia and psychotic disorder. AXIS II Deferred. AXIS III Renal failure. AXIS IV Low. AXIS V Global assessment of functioning is 10. PLAN: 1. The patient will be started on low-dose of antipsychotic risperdal 0.5 mg h.s. 2. We will continue follow and adjust the medications. Lea Gomes M.D. DR: ZAYDA JOB#: [id number] CC: LEATHA
[2016-10-11] MEDS: Norco 5mg/325mg tab ORAL PRN (04:59)
[2016-10-11 07:36] LABS: MEAN CORPUSCULAR HEMOGLOBIN 33.8 PG (27.0-31.0); MEAN CORPUSCULAR HGB CONC 32.2 G/DL (32.0-36.0); MEAN CORPUSCULAR VOLUME 105 FL (80-99); MEAN PLATELET VOLUME 8.4 FL (6.5-10.1); PLATELET COUNT 51 K/UL (150-450); RED BLOOD COUNT 2.48 M/UL (4.70-6.10); RED CELL DISTRIBUTION WIDTH 18.7 % (11.6-14.8); WHITE BLOOD COUNT 4.3 K/UL (4.8-10.8)
[2016-10-11 08:08] LABS: ALBUMIN/GLOBULIN RATIO 0.3 (1.0-2.7); CALCIUM 8.1 mg/dL (8.6-10.2); CREATININE 1.8 mg/dL (0.7-1.2); GLOMERULAR FILTRATION RATE 46.2 mL/min (>60); POTASSIUM 4.5 mEQ/L (3.4-4.9); TOTAL PROTEIN 6.1 g/dL (6.6-8.7)
[2016-10-11 08:10] LABS: CRP QUANT 2.1 mg/dL (< 0.5); MAGNESIUM 1.8 mg/dL (1.7-2.5); PHOSPHORUS 3.3 mg/dL (2.5-4.8); URIC ACID 9.4 mg/dL (3.0-7.5)
[2016-10-11] MEDS: Lactulose 20gm/30ml UDC ORAL SCH ×2 (08:33→17:32)
[2016-10-11] MEDS: Zinc Sulfate 220mg cap ORAL SCH (08:34)
[2016-10-11] MEDS: Tamsulosin 0.4mg cap ORAL SCH ×2 (08:34→17:30)
[2016-10-11] MEDS: Docusate 100mg cap ORAL SCH ×2 (08:34→17:29)
[2016-10-11] MEDS: Rifaximin 550mg tab ORAL SCH ×2 (08:34→17:31)
[2016-10-11] MEDS: Multivitamin w/Minerals tab ORAL SCH (08:34)
--- NOTE | 2016-10-11 08:37 | Infectious Diseases Prog Note ---
Assessment/Plan Assessment/Plan A: Possible yeast UTI No evid of sepsis at this time - afebrile without leukocytosis SP recent Paracentesis w no evidence of SPB Hepatitis C antibody + HIV : neg Depression Hx of recent Hypotension due to bradycardia Dementia Alcohol abuse Anemia History of left hip surgery 5 months ago - No evidence of surgical site infection at this time CT of the pelvis, left hip : hemiarthroplasty, fracture of intertrochanteric region of the femur, soft tissue swelling, hematoma, and ascites NKDA Full Code PLAN: start fluconazole d# 1 short course with hardware in place Monitor the patient off of antibiotics Monitor CBC Monitor BMP Monitor cultures urine Subjective Allergies: Coded Allergies: No Known Allergies (Unverified , 10/06/16) Subjective remains afebrile UCx yeast Objective Vital Signs Last 24 Hour Vital Signs Date Time Temp Pulse Resp B/P Pulse Ox O2 Delivery O2 Flow Rate FiO2 10/11/16 08:07 98.4 98 22 94/67 95 Nasal Cannula 4.0 10/11/16 04:00 97.4 69 20 103/68 100 Nasal Cannula 10/11/16 00:00 97.0 93 18 104/72 Nasal Cannula 10/10/16 20:00 97.1 95 20 108/73 100 Nasal Cannula 10/10/16 15:59 96.3 97 19 95/59 100 Nasal Cannula 2.0 10/10/16 13:22 100 20 94/64 100 Nasal Cannula 2.0 10/10/16 11:43 97.3 99 21 127/83 100 Room Air Height (Feet): 5 Height (Inches): 9.00 Weight (Pounds): 160 General Appearance: no acute distress Respiratory/Chest: no respiratory distress Cardiovascular: normal rate, regular rhythm Abdomen: normal bowel sounds, soft, non tender, non distended Microbiology Date/Time Source Procedure Growth Status 10/09/16 14:40 Blood Blood Culture - Preliminary NO GROWTH AFTER 24 HOURS Resulted 10/09/16 14:40 Blood Blood Culture - Preliminary NO GROWTH AFTER 24 HOURS Resulted 10/09/16 17:42 Nasal Nares MRSA Culture - Final NO METHICILLIN RESISTANT STAPH AUREUS... Complete 10/09/16 14:45 Urine,Clean Catch Urine Culture - Preliminary YEAST Resulted Laboratory Tests Test 10/11/16 05:15 White Blood Count 4.3 K/UL (4.8-10.8) L Red Blood Count 2.48 M/UL (4.70-6.10) L Hemoglobin 8.4 G/DL (14.2-18.0) L Hematocrit 26.1 % (42.0-52.0) L Mean Corpuscular Volume 105 FL (80-99) H Mean Corpuscular Hemoglobin 33.8 PG (27.0-31.0) H Mean Corpuscular Hemoglobin Concent 32.2 G/DL (32.0-36.0) Red Cell Distribution Width 18.7 % (11.6-14.8) H Platelet Count 51 K/UL (150-450) L Mean Platelet Volume 8.4 FL (6.5-10.1) Neutrophils (%) (Auto) % (45.0-75.0) Lymphocytes (%) (Auto) % (20.0-45.0) Monocytes (%) (Auto) % (1.0-10.0) Eosinophils (%) (Auto) % (0.0-3.0) Basophils (%) (Auto) % (0.0-2.0) Neutrophils % (Manual) Pending Lymphocytes % (Manual) Pending Platelet Estimate Pending Platelet Morphology Pending Sodium Level 128 mEQ/L (135-145) L Potassium Level 4.5 mEQ/L (3.4-4.9) Chloride Level 94 mEQ/L (98-107) L Carbon Dioxide Level 21 mEQ/L (20-30) Anion Gap 13 (5-15) Blood Urea Nitrogen 39 mg/dL (7-23) H Creatinine 1.8 mg/dL (0.7-1.2) H Estimat Glomerular Filtration Rate 46.2 mL/min (>60) Glucose Level 104 mg/dL (74-106) Uric Acid 9.4 mg/dL (3.0-7.5) H Calcium Level 8.1 mg/dL (8.6-10.2) L Phosphorus Level 3.3 mg/dL (2.5-4.8) Magnesium Level 1.8 mg/dL (1.7-2.5) Total Bilirubin 2.2 mg/dL (0.0-1.2) H Direct Bilirubin Pending Gamma Glutamyl Transpeptidase 41 U/L (8-61) Aspartate Amino Transf (AST/SGOT) 84 U/L (5-40) H Alanine Aminotransferase (ALT/SGPT) 31 U/L (3-41) Alkaline Phosphatase 185 U/L (40-129) H C-Reactive Protein, Quantitative 2.1 mg/dL (< 0.5) H Pro-B-Type Natriuretic Peptide 446 pg/mL (0-125) H Total Protein 6.1 g/dL (6.6-8.7) L Albumin 1.5 g/dL (3.5-5.2) L Globulin 4.6 g/dL Albumin/Globulin Ratio 0.3 (1.0-2.7) L Current Medications Medications (Trade) Dose Ordered Sig/Carolynn Route PRN Reason Start Time Stop Time Status Last Admin Dose Admin Acetaminophen (Tylenol) 650 mg Q4H PRN ORAL For Pain 1-3 10/09/16 20:45 11/08/16 20:44 Acetaminophen/ Hydrocodone Bitart ([place] 5/325) 1 tab Q4H PRN ORAL For Pain 4-10 10/09/16 20:45 10/16/16 20:44 10/11/16 04:59 Bisacodyl (Dulcolax) 10 mg DAILYPRN PRN RECTAL Constipation 10/09/16 20:45 11/08/16 20:44 Docusate Sodium (Colace) 100 mg TWICE A DAY ORAL 10/10/16 09:00 11/09/16 08:59 10/10/16 17:03 Ergocalciferol (Drisdol) 50,000 intlu MoTh ORAL 10/10/16 21:00 11/09/16 20:59 10/10/16 21:04 Finasteride (Proscar) 5 mg DAILY ORAL 10/10/16 09:00 11/09/16 08:59 10/10/16 08:51 Lactulose (Cephulac) 10 gm BID ORAL 10/10/16 09:00 11/09/16 08:59 10/10/16 17:02 Levofloxacin (Levaquin) 50 ml @ 50 mls/hr Q24H IVPB 10/10/16 11:00 10/17/16 10:59 10/10/16 14:07 Magnesium Hydroxide (Mom) 30 ml QHS ORAL 10/09/16 21:00 11/08/16 20:59 10/10/16 21:01 Midodrine (Pro-Amatine) 2.5 mg THREE TIMES A DAY ORAL 10/10/16 09:00 11/09/16 08:59 10/10/16 17:02 Multivitamins Therapeutic (Therapeutic Multivitamin) 1 ea DAILY ORAL 10/10/16 09:00 11/09/16 08:59 10/10/16 08:51 Olanzapine (ZyPREXA) 2.5 mg BEDTIME ORAL 10/10/16 21:00 11/09/16 20:59 10/10/16 21:01 Pantoprazole (Protonix) 40 mg EVERY 12 HOURS ORAL 10/09/16 22:00 11/08/16 21:59 10/10/16 21:02 Rifaximin (Xifaxan) 550 mg TWICE A DAY ORAL 10/10/16 09:00 10/17/16 08:59 10/10/16 17:02 Sennosides (Senokot) 8.6 mg BEDTIME ORAL 10/09/16 21:00 11/08/16 20:59 10/10/16 21:02 Tamsulosin HCl (Flomax) 0.4 mg BID ORAL 10/10/16 09:00 11/09/16 08:59 10/10/16 17:02 Zinc Sulfate 220 mg 220 mg DAILY ORAL 10/10/16 09:00 11/09/16 08:59 10/10/16 08:51 ANKIT CRUZ October 11, 2016 08:37
[2016-10-11 08:40] LABS: BILIRUBIN,DIRECT 1.3 mg/dL (0.1-0.3)
[2016-10-11] MEDS ORDERED: Fluconazole 100mg tab ORAL SCH (09:00)
--- NOTE | 2016-10-11 09:47 | General Progress Note ---
Assessment/Plan Status: unchanged, deteriorating Status Narrative Cr 1.8- Alb 1.5 Assessment/Plan Acute renal failure- Severe Anemia h/o HyperKalemia- resolved Proteinuria UTI High INR others: 1. s/p Status post mechanical fall. 2. Left periprosthetic femoral fracture. 3. Alcoholic liver cirrhosis. 4. s/p Elevated transaminase. 5. 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 6. Elevated tumor markers (CEA, AFP/alpha-fetoprotein). 7. Acute hepatic encephalopathy. 8. Hypertension. 9. Dementia. 10. Psychosis. 11. History of hemiarthroplasty, left hip, recent. 12. Hepatitis C. 13. History of alcohol abuse. 14. Anemia of chronic disease. 15. Thrombocytopenia, secondary to alcohol abuse. Plan; Transfuse as needed Midodrine for low BP hold mind altering meds- antibiotics - avoid nephrotoxics urine studies monitor renal parameters Tap Ascitis PRN consider comfort care- prognosis dismal- Trial albumin and lasix IV. per orders Subjective ROS Limited/Unobtainable: No Constitutional: Reports: malaise, weakness Allergies: Coded Allergies: No Known Allergies (Unverified , 10/06/16) Objective Last 24 Hour Vital Signs Date Time Temp Pulse Resp B/P Pulse Ox O2 Delivery O2 Flow Rate FiO2 10/11/16 08:07 98.4 98 22 94/67 95 Nasal Cannula 4.0 10/11/16 04:00 97.4 69 20 103/68 100 Nasal Cannula 10/11/16 00:00 97.0 93 18 104/72 Nasal Cannula 10/10/16 20:00 97.1 95 20 108/73 100 Nasal Cannula 10/10/16 15:59 96.3 97 19 95/59 100 Nasal Cannula 2.0 10/10/16 13:22 100 20 94/64 100 Nasal Cannula 2.0 10/10/16 11:43 97.3 99 21 127/83 100 Room Air Intake and Output 10/10/16 10/11/16 19:00 07:00 Intake Total 650 ml Output Total 400 ml 400 ml Balance -400 ml 250 ml Intake Oral 650 ml Output Urine Total 400 ml 400 ml # Bowel Movements 2 Laboratory Tests 10/11/16 05:15: White Blood Count 4.3L, Red Blood Count 2.48L, Hemoglobin 8.4L, Hematocrit 26.1L , Mean Corpuscular Volume 105H, Mean Corpuscular Hemoglobin 33.8H, Mean Corpuscular Hemoglobin Concent 32.2, Red Cell Distribution Width 18.7H, Platelet Count 51L, Mean Platelet Volume 8.4, Neutrophils (%) (Auto) , Lymphocytes (%) (Auto) , Monocytes (%) (Auto) , Eosinophils (%) (Auto) , Basophils (%) (Auto) , Neutrophils % (Manual) [Pending], Lymphocytes % (Manual) [Pending], Platelet Estimate [Pending], Platelet Morphology [Pending], Sodium Level 128L, Potassium Level 4.5, Chloride Level 94L, Carbon Dioxide Level 21, Anion Gap 13, Blood Urea Nitrogen 39H, Creatinine 1.8H, Estimat Glomerular Filtration Rate 46.2, Glucose Level 104, Uric Acid 9.4H, Calcium Level 8.1L, Phosphorus Level 3.3, Magnesium Level 1.8, Total Bilirubin 2.2H, Direct Bilirubin 1.3H, Gamma Glutamyl Transpeptidase 41, Aspartate Amino Transf (AST/ SGOT) 84H, Alanine Aminotransferase (ALT/SGPT) 31, Alkaline Phosphatase 185H, C- Reactive Protein, Quantitative 2.1H, Pro-B-Type Natriuretic Peptide 446H, Total Protein 6.1L, Albumin 1.5L, Globulin 4.6, Albumin/Globulin Ratio 0.3L Height (Feet): 5 Height (Inches): 9.00 Weight (Pounds): 160 General Appearance: no apparent distress, lethargic, confused Cardiovascular: tachycardia Respiratory/Chest: decreased breath sounds Abdomen: distended, other - ascitis PRINCESS PALACIO October 11, 2016 09:47
[2016-10-11] MEDS ORDERED: Dyna-Hex 2% Top Sol 8oz TOPIC SCH (10:00)
--- NOTE | 2016-10-11 10:12 | GI Progress Note ---
Assessment/Plan Problems: (1) Elevated CEA ICD Codes: R97.0 - Elevated carcinoembryonic antigen [CEA] SNOMED: 08614000, 129951604 (2) Thrombocytopenia ICD Codes: D69.6 - Thrombocytopenia, unspecified SNOMED: 264734108 (3) Ascites ICD Codes: R18.8 - Other ascites SNOMED: 828601596 Qualifiers: Qualified Codes: R18.8 - Other ascites (4) Anemia ICD Codes: D64.9 - Anemia, unspecified SNOMED: 322209994 (5) End-stage liver disease ICD Codes: K72.90 - Hepatic failure, unspecified without coma SNOMED: 609462069 Status: unchanged Status Narrative Discussed with Dr. Bojorquez. Assessment/Plan S/P EGD - FINDINGS: 1. Severe portal hypertensive gastropathy. Status post biopsy. >> unremarkable 2. Distal esophageal varices grade I/II without any stigmata. Hep C positive elevated CEA >> 9.6 r/o SBP >> negative on last admission paracentesis today normal ammonia >> cont lactulose + Xifaxan monitor H&H, transfuse prn ppi dc propranolol fu labs PT evaluation poor prognosis Subjective Gastrointestinal/Abdominal: Reports: abdomen distended - 2/2 ascites Objective Last 24 Hour Vital Signs Date Time Temp Pulse Resp B/P Pulse Ox O2 Delivery O2 Flow Rate FiO2 10/11/16 08:07 98.4 98 22 94/67 95 Nasal Cannula 4.0 10/11/16 04:00 97.4 69 20 103/68 100 Nasal Cannula 10/11/16 00:00 97.0 93 18 104/72 Nasal Cannula 10/10/16 20:00 97.1 95 20 108/73 100 Nasal Cannula 10/10/16 15:59 96.3 97 19 95/59 100 Nasal Cannula 2.0 10/10/16 13:22 100 20 94/64 100 Nasal Cannula 2.0 10/10/16 11:43 97.3 99 21 127/83 100 Room Air Intake and Output 10/10/16 10/11/16 19:00 07:00 Intake Total 650 ml Output Total 400 ml 400 ml Balance -400 ml 250 ml Intake Oral 650 ml Output Urine Total 400 ml 400 ml # Bowel Movements 2 Laboratory Tests Test 10/11/16 05:15 White Blood Count 4.3 K/UL (4.8-10.8) L Red Blood Count 2.48 M/UL (4.70-6.10) L Hemoglobin 8.4 G/DL (14.2-18.0) L Hematocrit 26.1 % (42.0-52.0) L Mean Corpuscular Volume 105 FL (80-99) H Mean Corpuscular Hemoglobin 33.8 PG (27.0-31.0) H Mean Corpuscular Hemoglobin Concent 32.2 G/DL (32.0-36.0) Red Cell Distribution Width 18.7 % (11.6-14.8) H Platelet Count 51 K/UL (150-450) L Mean Platelet Volume 8.4 FL (6.5-10.1) Neutrophils (%) (Auto) % (45.0-75.0) Lymphocytes (%) (Auto) % (20.0-45.0) Monocytes (%) (Auto) % (1.0-10.0) Eosinophils (%) (Auto) % (0.0-3.0) Basophils (%) (Auto) % (0.0-2.0) Neutrophils % (Manual) Pending Lymphocytes % (Manual) Pending Platelet Estimate Pending Platelet Morphology Pending Sodium Level 128 mEQ/L (135-145) L Potassium Level 4.5 mEQ/L (3.4-4.9) Chloride Level 94 mEQ/L (98-107) L Carbon Dioxide Level 21 mEQ/L (20-30) Anion Gap 13 (5-15) Blood Urea Nitrogen 39 mg/dL (7-23) H Creatinine 1.8 mg/dL (0.7-1.2) H Estimat Glomerular Filtration Rate 46.2 mL/min (>60) Glucose Level 104 mg/dL (74-106) Uric Acid 9.4 mg/dL (3.0-7.5) H Calcium Level 8.1 mg/dL (8.6-10.2) L Phosphorus Level 3.3 mg/dL (2.5-4.8) Magnesium Level 1.8 mg/dL (1.7-2.5) Total Bilirubin 2.2 mg/dL (0.0-1.2) H Direct Bilirubin 1.3 mg/dL (0.1-0.3) H Gamma Glutamyl Transpeptidase 41 U/L (8-61) Aspartate Amino Transf (AST/SGOT) 84 U/L (5-40) H Alanine Aminotransferase (ALT/SGPT) 31 U/L (3-41) Alkaline Phosphatase 185 U/L (40-129) H C-Reactive Protein, Quantitative 2.1 mg/dL (< 0.5) H Pro-B-Type Natriuretic Peptide 446 pg/mL (0-125) H Total Protein 6.1 g/dL (6.6-8.7) L Albumin 1.5 g/dL (3.5-5.2) L Globulin 4.6 g/dL Albumin/Globulin Ratio 0.3 (1.0-2.7) L Height (Feet): 5 Height (Inches): 9.00 Weight (Pounds): 160 General Appearance: no apparent distress, alert, thin Cardiovascular: normal rate Respiratory/Chest: normal breath sounds, no respiratory distress Abdominal Exam: distended, ascites Extremities: other - decreased ROM Bren Palacios N.P. October 11, 2016 10:12
--- NOTE | 2016-10-11 10:19 | General Progress Note ---
Assessment/Plan Status: unchanged Assessment/Plan 1. Abdominal pain secondary to recurrent Ascitis expanson, infection!? 2. Anasarca, multifactorial 3. s/p Status post mechanical fall. 2. S/P Left periprosthetic femoral fracture and second surgery in hospital 3. Alcoholic liver cirrhosis. 4. Elevated transaminase. 5. 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 6. Elevated tumor markers (CEA, AFP/alpha-fetoprotein). 7. Chronic hepatic encephalopathy. 8. Hypertension. 9. Dementia. 10. Psychosis. 11. History of hemiarthroplasty, left hip, recent. 12. Hepatitis C. 13. History of alcohol abuse. 14. Acute on chronic Anemia 15. Thrombocytopenia, secondary to alcohol abuse. 16. HypoNatremia Plan: Nephro GI Cardiology services Notes are reviewed will monitor H&H and proceed with Paracentesis Poor Prognosis Discussed the care with the sister; NATHANIEL. She requested Full code Fluid management per Nephro Subjective ROS Limited/Unobtainable: Yes Allergies: Coded Allergies: No Known Allergies (Unverified , 10/06/16) Objective Last 24 Hour Vital Signs Date Time Temp Pulse Resp B/P Pulse Ox O2 Delivery O2 Flow Rate FiO2 10/11/16 08:07 98.4 98 22 94/67 95 Nasal Cannula 4.0 10/11/16 04:00 97.4 69 20 103/68 100 Nasal Cannula 10/11/16 00:00 97.0 93 18 104/72 Nasal Cannula 10/10/16 20:00 97.1 95 20 108/73 100 Nasal Cannula 10/10/16 15:59 96.3 97 19 95/59 100 Nasal Cannula 2.0 10/10/16 13:22 100 20 94/64 100 Nasal Cannula 2.0 10/10/16 11:43 97.3 99 21 127/83 100 Room Air Intake and Output 10/10/16 10/11/16 19:00 07:00 Intake Total 650 ml Output Total 400 ml 400 ml Balance -400 ml 250 ml Intake Oral 650 ml Output Urine Total 400 ml 400 ml # Bowel Movements 2 Laboratory Tests 10/11/16 05:15: White Blood Count 4.3L, Red Blood Count 2.48L, Hemoglobin 8.4L, Hematocrit 26.1L , Mean Corpuscular Volume 105H, Mean Corpuscular Hemoglobin 33.8H, Mean Corpuscular Hemoglobin Concent 32.2, Red Cell Distribution Width 18.7H, Platelet Count 51L, Mean Platelet Volume 8.4, Neutrophils (%) (Auto) , Lymphocytes (%) (Auto) , Monocytes (%) (Auto) , Eosinophils (%) (Auto) , Basophils (%) (Auto) , Neutrophils % (Manual) [Pending], Lymphocytes % (Manual) [Pending], Platelet Estimate [Pending], Platelet Morphology [Pending], Sodium Level 128L, Potassium Level 4.5, Chloride Level 94L, Carbon Dioxide Level 21, Anion Gap 13, Blood Urea Nitrogen 39H, Creatinine 1.8H, Estimat Glomerular Filtration Rate 46.2, Glucose Level 104, Uric Acid 9.4H, Calcium Level 8.1L, Phosphorus Level 3.3, Magnesium Level 1.8, Total Bilirubin 2.2H, Direct Bilirubin 1.3H, Gamma Glutamyl Transpeptidase 41, Aspartate Amino Transf (AST/ SGOT) 84H, Alanine Aminotransferase (ALT/SGPT) 31, Alkaline Phosphatase 185H, C- Reactive Protein, Quantitative 2.1H, Pro-B-Type Natriuretic Peptide 446H, Total Protein 6.1L, Albumin 1.5L, Globulin 4.6, Albumin/Globulin Ratio 0.3L Height (Feet): 5 Height (Inches): 9.00 Weight (Pounds): 160 General Appearance: no apparent distress EENT: PERRL/EOMI Neck: supple Cardiovascular: normal rate Respiratory/Chest: lungs clear Abdomen: distended, other - Marked Ascitis, no severe pain Extremities: non-tender Edema: 3+ Leg (R), 3+ Pedal (L), 3+ Pedal (R), 3+ Generalized Neurologic: disoriented, other - Demented, AOX1 at base line Shanita Oden MD October 11, 2016 10:19
[2016-10-11 11:07] LABS: INR 1.8 (0.9-1.1); PROTHROMBIN TIME 18.7 SEC (9.30-11.50)
[2016-10-11 11:17] LABS: ANISOCYTOSIS 2+; BAND NEUTROPHILS % (MANUAL) 0 % (0-8); BASOPHILS % (MANUAL) 0 % (0-2); EOSINOPHILS % (MANUAL) 1 % (0-3); HYPOCHROMASIA 1+; LYMPHOCYTES % (MANUAL) 15 % (20-45); MACROCYTES 1+; NEUTROPHILS % (MANUAL) 79 % (45-75); PLATELET ESTIMATE DECREASED; PLATELET MORPHOLOGY NORMAL; TOTAL CELLS COUNTED 100
[2016-10-11] MEDS ORDERED: Ketorolac 30mg Inj IV PRN (11:45)
--- NOTE | 2016-10-11 12:48 | Pulmonology Progress Note ---
Assessment/Plan Assessment/Plan ASSESSMENT abdominal pain recurrent ascites alcoholic liver cirrhosis chronic hepatic encephalopathy end stage liver disease elevated tumor markers (CEA, AFP) anasarca acute on chronic renal failure possible hepatorenal syndrome coagulopathy (secondary to alcoholic liver cirrhosis). Hypotension hepatitis C elevated LFT possible yeast UTI hx of ETOH abuse thrombocytopenia anemia hyponatremia dementia psychosis PLAN OF CARE MS floor paracentesis pending O2 HHN prn GI follows ammonia WNL continue lactulose and Xifaxan PPI s/p vit K prior EGD with evidence of portal hypertensive gastropathy,, biopsy unremarkable, distant esophageal varices grade 1-2 s any stigmata renal parameters without any change nephro follows trial of Albumin and Lasix avoid nephrotic closely monitor renal parameters and lytes renal US possible hepatorenal syndrome ID follows, urien cx + yeast, antifungal recent paracentesis no evidence of SBE monitor HH transfuse prn monitor BP, on Midodrine no Heparin 2 to thrombocytopenia transfer to higher level of care-RUFUS overall prognosis poor consider palliative care case discussed and evaluated by supervising physician Subjective Allergies: Coded Allergies: No Known Allergies (Unverified , 10/06/16) Subjective poorly arousable sitter at the bedside Objective Last 24 Hour Vital Signs Date Time Temp Pulse Resp B/P Pulse Ox O2 Delivery O2 Flow Rate FiO2 10/11/16 11:46 98.0 90 20 104/60 95 Nasal Cannula 4.0 10/11/16 08:07 98.4 98 22 94/67 95 Nasal Cannula 4.0 10/11/16 04:00 97.4 69 20 103/68 100 Nasal Cannula 10/11/16 00:00 97.0 93 18 104/72 Nasal Cannula 10/10/16 20:00 97.1 95 20 108/73 100 Nasal Cannula 10/10/16 15:59 96.3 97 19 95/59 100 Nasal Cannula 2.0 10/10/16 13:22 100 20 94/64 100 Nasal Cannula 2.0 Intake and Output 10/10/16 10/11/16 19:00 07:00 Intake Total 650 ml Output Total 400 ml 400 ml Balance -400 ml 250 ml Intake Oral 650 ml Output Urine Total 400 ml 400 ml # Bowel Movements 2 General Appearance: no acute distress, other - drowsy,. arousable HEENT: normocephalic, atraumatic Respiratory/Chest: decreased breath sounds Cardiovascular: normal rate, regular rhythm Abdomen: normal bowel sounds, other - abdomen distended, mild diffused tenderness Extremities: other - +3 edema BLE Neurologic/Psychiatric: abnormal gait, other - drowsy, but when arousable- responsive Musculoskeletal: atrophy - BLE Microbiology Date/Time Source Procedure Growth Status 10/09/16 14:40 Blood Blood Culture - Preliminary NO GROWTH AFTER 24 HOURS Resulted 10/09/16 14:40 Blood Blood Culture - Preliminary NO GROWTH AFTER 24 HOURS Resulted 10/09/16 17:42 Nasal Nares MRSA Culture - Final NO METHICILLIN RESISTANT STAPH AUREUS... Complete 10/09/16 14:45 Urine,Clean Catch Urine Culture - Preliminary YEAST Resulted Laboratory Tests 10/11/16 05:15: White Blood Count 4.3L, Red Blood Count 2.48L, Hemoglobin 8.4L, Hematocrit 26.1L , Mean Corpuscular Volume 105H, Mean Corpuscular Hemoglobin 33.8H, Mean Corpuscular Hemoglobin Concent 32.2, Red Cell Distribution Width 18.7H, Platelet Count 51L, Mean Platelet Volume 8.4, Neutrophils (%) (Auto) , Lymphocytes (%) (Auto) , Monocytes (%) (Auto) , Eosinophils (%) (Auto) , Basophils (%) (Auto) , Differential Total Cells Counted 100, Neutrophils % ( Manual) 79H, Lymphocytes % (Manual) 15L, Monocytes % (Manual) 5, Eosinophils % ( Manual) 1, Basophils % (Manual) 0, Band Neutrophils 0, Platelet Estimate DecreasedL, Platelet Morphology Normal, Hypochromasia 1+, Anisocytosis 2+, Macrocytosis 1+, Sodium Level 128L, Potassium Level 4.5, Chloride Level 94L, Carbon Dioxide Level 21, Anion Gap 13, Blood Urea Nitrogen 39H, Creatinine 1.8H , Estimat Glomerular Filtration Rate 46.2, Glucose Level 104, Uric Acid 9.4H, Calcium Level 8.1L, Phosphorus Level 3.3, Magnesium Level 1.8, Total Bilirubin 2.2H, Direct Bilirubin 1.3H, Gamma Glutamyl Transpeptidase 41, Aspartate Amino Transf (AST/SGOT) 84H, Alanine Aminotransferase (ALT/SGPT) 31, Alkaline Phosphatase 185H, C-Reactive Protein, Quantitative 2.1H, Pro-B-Type Natriuretic Peptide 446H, Total Protein 6.1L, Albumin 1.5L, Globulin 4.6, Albumin/Globulin Ratio 0.3L 10/11/16 10:20: Prothrombin Time 18.7H, Prothromb Time International Ratio 1.8H Current Medications Medications (Trade) Dose Ordered Sig/Carolynn Route PRN Reason Start Time Stop Time Status Last Admin Dose Admin Acetaminophen (Tylenol) 650 mg Q4H PRN ORAL For Pain 1-3 10/09/16 20:45 11/08/16 20:44 Acetaminophen/ Hydrocodone Bitart ([place] 5/325) 1 tab Q4H PRN ORAL For Pain 4-10 10/09/16 20:45 10/16/16 20:44 10/11/16 04:59 Bisacodyl (Dulcolax) 10 mg DAILYPRN PRN RECTAL Constipation 10/09/16 20:45 11/08/16 20:44 Chlorhexidine Gluconate (Tania-Hex 2%) 1 applic DAILY TOPIC 10/11/16 10:00 11/10/16 09:59 10/11/16 09:32 Docusate Sodium (Colace) 100 mg TWICE A DAY ORAL 10/10/16 09:00 11/09/16 08:59 10/11/16 08:34 Ergocalciferol (Drisdol) 50,000 intlu MoTh ORAL 10/10/16 21:00 11/09/16 20:59 10/10/16 21:04 Finasteride (Proscar) 5 mg DAILY ORAL 10/10/16 09:00 11/09/16 08:59 10/11/16 08:41 Fluconazole (Diflucan) 100 mg DAILY ORAL 10/11/16 09:00 10/18/16 08:59 10/11/16 09:32 Ketorolac Tromethamine (Toradol 30mg) 15 mg BID PRN IV pain 4-10 if norco ineffective 10/11/16 11:45 10/16/16 11:44 Lactulose (Cephulac) 10 gm BID ORAL 10/10/16 09:00 11/09/16 08:59 10/11/16 08:33 Levofloxacin (Levaquin) 50 ml @ 50 mls/hr Q24H IVPB 10/10/16 11:00 10/17/16 10:59 10/11/16 12:06 Magnesium Hydroxide (Mom) 30 ml QHS ORAL 10/09/16 21:00 11/08/16 20:59 10/10/16 21:01 Midodrine (Pro-Amatine) 10 mg THREE TIMES A DAY ORAL 10/11/16 13:00 11/10/16 12:59 10/11/16 12:06 Multivitamins Therapeutic (Therapeutic Multivitamin) 1 ea DAILY ORAL 10/10/16 09:00 11/09/16 08:59 10/11/16 08:34 Olanzapine (ZyPREXA) 2.5 mg BEDTIME ORAL 10/10/16 21:00 11/09/16 20:59 10/10/16 21:01 Pantoprazole (Protonix) 40 mg EVERY 12 HOURS ORAL 10/09/16 22:00 11/08/16 21:59 10/11/16 08:34 Rifaximin (Xifaxan) 550 mg TWICE A DAY ORAL 10/10/16 09:00 10/17/16 08:59 10/11/16 08:34 Sennosides (Senokot) 8.6 mg BEDTIME ORAL 10/09/16 21:00 11/08/16 20:59 10/10/16 21:02 Tamsulosin HCl (Flomax) 0.4 mg BID ORAL 10/10/16 09:00 11/09/16 08:59 10/11/16 08:34 Zinc Sulfate 220 mg 220 mg DAILY ORAL 10/10/16 09:00 11/09/16 08:59 10/11/16 08:34 Yesenia Bailey NP ([place]) October 11, 2016 12:48
[2016-10-11] MEDS ORDERED: Midodrine 10mg tab ORAL SCH (13:00)
[2016-10-11] MEDS: Ketorolac 30mg Inj IV PRN (15:21)
[2016-10-11] MEDS ORDERED: Tubing IV Secondary IV ONE (15:29)
[2016-10-11] MEDS ORDERED: NS 275ml ONE (15:29)
[2016-10-11] MEDS ORDERED: Norco 5mg/325mg tab ORAL PRN (16:45)
[2016-10-11] MEDS: Midodrine 10mg tab ORAL SCH (17:30)
--- NOTE | 2016-10-11 20:12 | Wound Care Consultation ---
Wound Assessment Wound Assessment #1: Wound Present on Admission: Yes New Wound: No Status Change of Wound: No Wound Location Body Site Modif: left Wound Location Body Site: heel Wound Type: pressure ulcer Angela Test: Does not Angela Pressure Ulcer Stage: III Wound Thickness: Full Thickness Wound Length: 6.5 Wound Width: 7.0 Wound Depth: 0.[address]/Red: 90 Percent of Wound Bed Yellow/Wh: 10 Wound Drainage Description: Serosanguineous Wound Drainage Amount: Scant Wound Drainage Odor: None/Absent Tissue Surrounding Wound: Intact Wound General Appearance: Reddened, Draining Wound Assessment #2: Wound Number: #2 Wound Present on Admission: Yes New Wound: No Status Change of Wound: No Wound Location Body Site: perineal area Wound Type: chemical burn Angela Test: Does not Angela Percent of Wound [place]/Red: 100 Wound Drainage Amount: None Wound Drainage Odor: None/Absent Tissue Surrounding Wound: Erythemic Wound General Appearance: Reddened Wound Comment #1 Left hip surgical incision with brandie #2 Left heel III pressure ulcer. #3 Chemical burn on perineal area Recommendation -Left heel stage III pressure ulcer Cleanse with saline, pat dry, apply hydrogel to wound bed, apply calcium alginate, cover with 4x4, wrap with Kerlix daily and PRN soiled/dislodged -F/u with MD for surgical incision treatment -Heel protector on both heels -Offload both heels -Turn and reposition -Optimize nutrition -Keep clean and dry -Low air loss mattress -Assess and f/u accordingly for any changes BURAK REYES RN October 11, 2016 20:12
[2016-10-11] MEDS: Milk of Magnesia 30ml Ud ORAL SCH (21:13)
[2016-10-11] MEDS: OLANZapine 2.5mg tab ORAL SCH (21:14)
[2016-10-12] VITALS (7 sets, daily range): BP systolic 85–122; BP diastolic 43–64
[2016-10-12 05:46] LABS: MEAN CORPUSCULAR HEMOGLOBIN 33.1 PG (27.0-31.0); MEAN CORPUSCULAR VOLUME 104 FL (80-99); MEAN PLATELET VOLUME 8.5 FL (6.5-10.1); PLATELET COUNT 38 K/UL (150-450); RED BLOOD COUNT 2.35 M/UL (4.70-6.10); RED CELL DISTRIBUTION WIDTH 18.9 % (11.6-14.8); WHITE BLOOD COUNT 3.4 K/UL (4.8-10.8)
[2016-10-12 06:05] LABS: ALBUMIN/GLOBULIN RATIO 0.3 (1.0-2.7); CALCIUM 8.1 mg/dL (8.6-10.2); GLOMERULAR FILTRATION RATE 40.8 mL/min (>60); POTASSIUM 4.6 mEQ/L (3.4-4.9); TOTAL PROTEIN 5.7 g/dL (6.6-8.7)
[2016-10-12 06:27] LABS: BILIRUBIN,DIRECT 1.2 mg/dL (0.1-0.3)
[2016-10-12] MEDS: Tamsulosin 0.4mg cap ORAL SCH ×2 (08:09→17:26)
[2016-10-12] MEDS: Zinc Sulfate 220mg cap ORAL SCH (08:10)
[2016-10-12] MEDS: Fluconazole 100mg tab ORAL SCH (08:10)
[2016-10-12] MEDS: Multivitamin w/Minerals tab ORAL SCH (08:10)
[2016-10-12] MEDS: Docusate 100mg cap ORAL SCH ×2 (08:10→17:26)
[2016-10-12] MEDS: Dyna-Hex 2% Top Sol 8oz TOPIC SCH (08:11)
[2016-10-12] MEDS: Lactulose 20gm/30ml UDC ORAL SCH ×2 (08:11→17:26)
[2016-10-12] MEDS: Rifaximin 550mg tab ORAL SCH ×2 (08:12→17:26)
[2016-10-12] MEDS: Midodrine 10mg tab ORAL SCH ×3 (08:12→17:26)
--- NOTE | 2016-10-12 08:41 | Pulmonology Progress Note ---
Assessment/Plan Assessment/Plan ASSESSMENT abdominal pain recurrent ascites alcoholic liver cirrhosis chronic hepatic encephalopathy end stage liver disease elevated tumor markers (CEA, AFP) anasarca acute on chronic renal failure possible hepatorenal syndrome coagulopathy (secondary to alcoholic liver cirrhosis). Hypotension hepatitis C elevated LFT possible yeast UTI hx of ETOH abuse thrombocytopenia anemia hyponatremia dementia psychosis PLAN OF CARE RUFUS paracentesis pending O2 HHN prn, currently on O2 5L via NC venous Duplex BLE negative GI follows ammonia WNL continue lactulose and Xifaxan PPI s/p vit K prior EGD with evidence of portal hypertensive gastropathy,, biopsy unremarkable, distant esophageal varices grade 1-2 s any stigmata renal parameters at baseline nephro follows trial of Albumin and Lasix avoid nephrotic closely monitor renal parameters and lytes renal US possible hepatorenal syndrome ID follows, urine cx + yeast, antifungal recent paracentesis no evidence of SBE monitor HH transfuse prn monitor BP, on Midodrine no Heparin 2 to thrombocytopenia overall prognosis poor consider palliative care case discussed and evaluated by supervising physician Subjective Allergies: Coded Allergies: No Known Allergies (Unverified , 10/06/16) Subjective in RUFUS more awake sitter at the bedside Objective Last 24 Hour Vital Signs Date Time Temp Pulse Resp B/P Pulse Ox O2 Delivery O2 Flow Rate FiO2 10/12/16 07:24 97.2 104 22 105/64 100 Nasal Cannula 5.0 10/12/16 05:15 97.3 96 20 110/55 100 Nasal Cannula 4.0 10/12/16 04:00 97.0 110 20 85/50 100 Nasal Cannula 4.0 10/12/16 04:00 88 10/12/16 00:00 96.6 93 19 109/55 100 Nasal Cannula 4.0 10/12/16 00:00 88 10/11/16 20:00 97.4 91 20 100/60 100 Nasal Cannula 4.0 10/11/16 20:00 88 10/11/16 16:12 91 10/11/16 16:01 98.2 93 20 112/58 99 Nasal Cannula 4.0 10/11/16 13:52 97.6 98 20 115/62 100 Nasal Cannula 4.0 10/11/16 11:46 98.0 90 20 104/60 95 Nasal Cannula 4.0 Intake and Output 10/11/16 10/12/16 19:00 07:00 Intake Total 360 ml 220 ml Output Total 500 ml 600 ml Balance -140 ml -380 ml Intake Oral 360 ml 220 ml Output Urine Total 500 ml 600 ml # Voids 1 # Bowel Movements 2 15 Objective General Appearance: no acute distress, awake HEENT: normocephalic, atraumatic Respiratory/Chest: decreased breath sounds Cardiovascular: normal rate, regular rhythm Abdomen: normal bowel sounds, other - abdomen distended, mild diffused tenderness Extremities: other - +3 edema BLE Neurologic/Psychiatric: abnormal gait, awake Musculoskeletal: atrophy - BLE Microbiology Date/Time Source Procedure Growth Status 10/09/16 14:40 Blood Blood Culture - Preliminary NO GROWTH AFTER 48 HOURS Resulted 10/09/16 14:40 Blood Blood Culture - Preliminary NO GROWTH AFTER 48 HOURS Resulted 10/09/16 17:42 Nasal Nares MRSA Culture - Final NO METHICILLIN RESISTANT STAPH AUREUS... Complete 10/09/16 14:45 Urine,Clean Catch Urine Culture - Preliminary YEAST Resulted Laboratory Tests 10/11/16 10:20: Prothrombin Time 18.7H, Prothromb Time International Ratio 1.8H 10/12/16 04:40: White Blood Count 3.4L, Red Blood Count 2.35L, Hemoglobin 7.8L, Hematocrit 24.4L , Mean Corpuscular Volume 104H, Mean Corpuscular Hemoglobin 33.1H, Mean Corpuscular Hemoglobin Concent 32.0, Red Cell Distribution Width 18.9H, Platelet Count 38L, Mean Platelet Volume 8.5, Neutrophils (%) (Auto) , Lymphocytes (%) (Auto) , Monocytes (%) (Auto) , Eosinophils (%) (Auto) , Basophils (%) (Auto) , Neutrophils % (Manual) [Pending], Lymphocytes % (Manual) [Pending], Platelet Estimate [Pending], Platelet Morphology [Pending], Sodium Level 132L, Potassium Level 4.6, Chloride Level 96L, Carbon Dioxide Level 22, Anion Gap 14, Blood Urea Nitrogen 41H, Creatinine 2.0H, Estimat Glomerular Filtration Rate 40.8, Glucose Level 104, Calcium Level 8.1L, Total Bilirubin 2.1H, Direct Bilirubin 1.2H, Aspartate Amino Transf (AST/SGOT) 81H, Alanine Aminotransferase (ALT/SGPT) 31, Alkaline Phosphatase 162H, Total Protein 5.7L, Albumin 1.5L, Globulin 4.2, Albumin/Globulin Ratio 0.3L Current Medications Medications (Trade) Dose Ordered Sig/Carolynn Route PRN Reason Start Time Stop Time Status Last Admin Dose Admin Acetaminophen (Tylenol) 650 mg Q4H PRN ORAL For Pain 1-3 10/11/16 16:45 11/10/16 16:44 Acetaminophen/ Hydrocodone Bitart ([place] 5/325) 1 tab Q4H PRN ORAL For Pain 4-10 10/11/16 16:45 10/18/16 16:44 Bisacodyl (Dulcolax) 10 mg DAILYPRN PRN RECTAL Constipation 10/11/16 20:45 11/10/16 20:44 Chlorhexidine Gluconate (Tania-Hex 2%) 1 applic DAILY TOPIC 10/12/16 09:00 11/11/16 08:59 10/12/16 08:11 Docusate Sodium (Colace) 100 mg TWICE A DAY ORAL 10/11/16 18:00 11/10/16 17:59 10/12/16 08:10 Ergocalciferol (Drisdol) 50,000 intlu MoTh ORAL 10/14/16 21:00 11/13/16 20:59 Finasteride (Proscar) 5 mg DAILY ORAL 10/12/16 09:00 11/11/16 08:59 10/12/16 08:16 Fluconazole (Diflucan) 100 mg DAILY ORAL 10/12/16 09:00 10/19/16 08:59 10/12/16 08:10 Ketorolac Tromethamine (Toradol 30mg) 15 mg BID PRN IV pain 4-10 if norco ineffective 10/11/16 18:00 10/16/16 17:59 10/11/16 15:21 Lactulose (Cephulac) 10 gm BID ORAL 10/11/16 18:00 11/10/16 17:59 10/12/16 08:11 Magnesium Hydroxide (Mom) 30 ml QHS ORAL 10/11/16 21:00 11/10/16 20:59 10/11/16 21:13 Midodrine (Pro-Amatine) 10 mg THREE TIMES A DAY ORAL 10/11/16 18:00 11/10/16 17:59 10/12/16 08:12 Multivitamins Therapeutic (Therapeutic Multivitamin) 1 ea DAILY ORAL 10/12/16 09:00 11/11/16 08:59 10/12/16 08:10 Olanzapine (ZyPREXA) 2.5 mg BEDTIME ORAL 10/11/16 21:00 11/10/16 20:59 10/11/16 21:14 Pantoprazole (Protonix) 40 mg EVERY 12 HOURS ORAL 10/11/16 21:00 11/10/16 20:59 10/12/16 08:10 Rifaximin (Xifaxan) 550 mg TWICE A DAY ORAL 10/11/16 18:00 10/18/16 17:59 10/12/16 08:12 Sennosides (Senokot) 8.6 mg BEDTIME ORAL 10/11/16 21:00 11/10/16 20:59 10/11/16 21:14 Tamsulosin HCl (Flomax) 0.4 mg BID ORAL 10/11/16 18:00 11/10/16 17:59 10/12/16 08:09 Zinc Sulfate (Zinc Sulfate) 220 mg DAILY ORAL 10/12/16 09:00 11/11/16 08:59 10/12/16 08:10 Leo (Maci)Yesenia NP October 12, 2016 08:41
[2016-10-12] MEDS ORDERED: DuoNeb 0.5-3(2.5)mg/3ml neb HHN PRN (08:45)
--- NOTE | 2016-10-12 09:12 | Diagnostic Imaging Report ---
Indications: Acute renal failure Technique: Transabdominal real-time grayscale and duplex Doppler imaging of the kidneys, retroperitoneum, and urinary bladder was performed Findings: Comparison: CT abdomen pelvis 10/09/16 Right kidney measures 13 cm in length. Normal cortical thickness. Mildly increased cortical echogenicity. 5 mm echogenic nodular focus in lower pole.. No additional focal lesions, hydronephrosis, or obvious perinephric abnormalities. Left kidney measures 11.4 cm in length. Normal cortical thickness. Mildly increased cortical echogenicity. 5.5 cm circumscribed anechoic mass adjacent to but outside lower pole. Separate 5 mm echogenic nodular focus in lower pole.. No additional focal lesions, hydronephrosis, or obvious perinephric abnormalities. The intrahepatic portion of inferior vena cava is patent and normal caliber. Moderate ascites, small nodular echogenic liver incidentally noted. The urinary bladder is collapsed around Carter catheter.. IMPRESSION: Bilateral normal size kidneys with increased parenchymal echogenicity compatible with medical renal disease, nonspecific Bilateral nonobstructive nephrolithiasis 5.5 cm cystic-appearing structure adjacent to lower pole of left kidney. This may represent the left psoas hematoma seen on CT scan. Liver findings compatible with cirrhosis Moderate ascites, nonspecific, may be secondary to portal hypertension
[2016-10-12 09:24] LABS: MEAN CORPUSCULAR HEMOGLOBIN 33.2 PG (27.0-31.0); MEAN CORPUSCULAR HGB CONC 31.6 G/DL (32.0-36.0); MEAN CORPUSCULAR VOLUME 105 FL (80-99); MEAN PLATELET VOLUME 6.8 FL (6.5-10.1); PLATELET COUNT 48 K/UL (150-450); RED BLOOD COUNT 2.76 M/UL (4.70-6.10); RED CELL DISTRIBUTION WIDTH 18.5 % (11.6-14.8); WHITE BLOOD COUNT 4.9 K/UL (4.8-10.8)
[2016-10-12 09:45] LABS: ANISOCYTOSIS 1+; BAND NEUTROPHILS % (MANUAL) 0 % (0-8); BASOPHILS % (MANUAL) 0 % (0-2); EOSINOPHILS % (MANUAL) 2 % (0-3); LYMPHOCYTES % (MANUAL) 20 % (20-45); NEUTROPHILS % (MANUAL) 71 % (45-75); PLATELET ESTIMATE DECREASED; PLATELET MORPHOLOGY NORMAL; TOTAL CELLS COUNTED 100
[2016-10-12 09:46] LABS: HYPOCHROMASIA 1+; MACROCYTES 1+
[2016-10-12 09:48] LABS: ANISOCYTOSIS 1+; BAND NEUTROPHILS % (MANUAL) 0 % (0-8); BASOPHILS % (MANUAL) 0 % (0-2); EOSINOPHILS % (MANUAL) 0 % (0-3); HYPOCHROMASIA 1+; LYMPHOCYTES % (MANUAL) 6 % (20-45); MACROCYTES 1+; NEUTROPHILS % (MANUAL) 82 % (45-75); PLATELET ESTIMATE DECREASED; PLATELET MORPHOLOGY NORMAL; TOTAL CELLS COUNTED 100
--- NOTE | 2016-10-12 11:02 | General Progress Note ---
Assessment/Plan Problem List: (1) Gallstones ICD Codes: K80.20 - Calculus of gallbladder without cholecystitis without obstruction SNOMED: 340716957 (2) Anasarca ICD Codes: R60.1 - Generalized edema SNOMED: 802282979, 247487891 (3) hep c (4) Encephalopathy ICD Codes: G93.40 - Encephalopathy, unspecified SNOMED: 18931500, 587974333 (5) History of alcoholism ICD Codes: F10.21 - Alcohol dependence, in remission SNOMED: 954284673 (6) Coagulopathy ICD Codes: D68.9 - Coagulation defect, unspecified SNOMED: 07751163 (7) End-stage liver disease ICD Codes: K72.90 - Hepatic failure, unspecified without coma SNOMED: 325289964 (8) LFT elevation ICD Codes: R94.5 - Abnormal results of liver function studies SNOMED: 923383355 (9) Anemia ICD Codes: D64.9 - Anemia, unspecified SNOMED: 602036237 (10) Ascites ICD Codes: R18.8 - Other ascites SNOMED: 178863886 Qualifiers: Qualified Codes: R18.8 - Other ascites (11) Thrombocytopenia ICD Codes: D69.6 - Thrombocytopenia, unspecified SNOMED: 014472109 (12) Elevated CEA ICD Codes: R97.0 - Elevated carcinoembryonic antigen [CEA] SNOMED: 99419027, 369615066 Assessment/Plan albumin lactulose and xifaxan ppi stool ob fu labs prn paracentesis AFP Subjective ROS Limited/Unobtainable: Yes Allergies: Coded Allergies: No Known Allergies (Unverified , 10/06/16) Subjective no event Objective Last 24 Hour Vital Signs Date Time Temp Pulse Resp B/P Pulse Ox O2 Delivery O2 Flow Rate FiO2 10/12/16 08:00 103 10/12/16 07:24 97.2 104 22 105/64 100 Nasal Cannula 5.0 10/12/16 05:15 97.3 96 20 110/55 100 Nasal Cannula 4.0 10/12/16 04:00 97.0 110 20 85/50 100 Nasal Cannula 4.0 10/12/16 04:00 88 10/12/16 00:00 96.6 93 19 109/55 100 Nasal Cannula 4.0 10/12/16 00:00 88 10/11/16 20:00 97.4 91 20 100/60 100 Nasal Cannula 4.0 10/11/16 20:00 88 10/11/16 16:12 91 10/11/16 16:01 98.2 93 20 112/58 99 Nasal Cannula 4.0 10/11/16 13:52 97.6 98 20 115/62 100 Nasal Cannula 4.0 10/11/16 11:46 98.0 90 20 104/60 95 Nasal Cannula 4.0 Intake and Output 10/11/16 10/12/16 19:00 07:00 Intake Total 360 ml 220 ml Output Total 500 ml 600 ml Balance -140 ml -380 ml Intake Oral 360 ml 220 ml Output Urine Total 500 ml 600 ml # Voids 1 # Bowel Movements 2 15 Laboratory Tests 10/12/16 04:40: White Blood Count 3.4L, Red Blood Count 2.35L, Hemoglobin 7.8L, Hematocrit 24.4L , Mean Corpuscular Volume 104H, Mean Corpuscular Hemoglobin 33.1H, Mean Corpuscular Hemoglobin Concent 32.0, Red Cell Distribution Width 18.9H, Platelet Count 38L, Mean Platelet Volume 8.5, Neutrophils (%) (Auto) , Lymphocytes (%) (Auto) , Monocytes (%) (Auto) , Eosinophils (%) (Auto) , Basophils (%) (Auto) , Differential Total Cells Counted 100, Neutrophils % ( Manual) 71, Lymphocytes % (Manual) 20, Monocytes % (Manual) 7, Eosinophils % ( Manual) 2, Basophils % (Manual) 0, Band Neutrophils 0, Platelet Estimate DecreasedL, Platelet Morphology Normal, Hypochromasia 1+, Anisocytosis 1+, Macrocytosis 1+, Sodium Level 132L, Potassium Level 4.6, Chloride Level 96L, Carbon Dioxide Level 22, Anion Gap 14, Blood Urea Nitrogen 41H, Creatinine 2.0H , Estimat Glomerular Filtration Rate 40.8, Glucose Level 104, Calcium Level 8.1L , Total Bilirubin 2.1H, Direct Bilirubin 1.2H, Aspartate Amino Transf (AST/SGOT ) 81H, Alanine Aminotransferase (ALT/SGPT) 31, Alkaline Phosphatase 162H, Total Protein 5.7L, Albumin 1.5L, Globulin 4.2, Albumin/Globulin Ratio 0.3L 10/12/16 08:45: White Blood Count 4.9, Red Blood Count 2.76L, Hemoglobin 9.2L, Hematocrit 29.0L , Mean Corpuscular Volume 105H, Mean Corpuscular Hemoglobin 33.2H, Mean Corpuscular Hemoglobin Concent 31.6L, Red Cell Distribution Width 18.5H, Platelet Count 48L, Mean Platelet Volume 6.8, Neutrophils (%) (Auto) , Lymphocytes (%) (Auto) , Monocytes (%) (Auto) , Eosinophils (%) (Auto) , Basophils (%) (Auto) , Differential Total Cells Counted 100, Neutrophils % ( Manual) 82H, Lymphocytes % (Manual) 6L, Monocytes % (Manual) 12H, Eosinophils % (Manual) 0, Basophils % (Manual) 0, Band Neutrophils 0, Platelet Estimate DecreasedL, Platelet Morphology Normal, Hypochromasia 1+, Anisocytosis 1+, Macrocytosis 1+ Height (Feet): 5 Height (Inches): 9.00 Weight (Pounds): 160 General Appearance: alert EENT: normal ENT inspection Neck: supple Cardiovascular: normal rate Respiratory/Chest: decreased breath sounds Abdomen: normal bowel sounds, non tender, soft Edema: 3+ Leg (L), 3+ Leg (R), 3+ Pedal (L), 3+ Pedal (R) THAI SEAMAN October 12, 2016 11:02
--- NOTE | 2016-10-12 13:42 | General Progress Note ---
Assessment/Plan Status: unchanged Assessment/Plan 1. Abdominal pain secondary to recurrent Ascites expansion, infection!? 2. Anasarca, multifactorial 3. s/p Status post mechanical fall. 2. S/P Left periprosthetic femoral fracture and second surgery in hospital 3. Alcoholic liver cirrhosis. 4. Elevated transaminase. 5. 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 6. Elevated tumor markers (CEA, AFP/alpha-fetoprotein). 7. Chronic hepatic encephalopathy. 8. Hypertension. 9. Dementia. 10. Psychosis. 11. History of hemiarthroplasty, left hip, recent. 12. Hepatitis C. 13. History of alcohol abuse. 14. Acute on chronic Anemia 15. Thrombocytopenia, secondary to alcohol abuse. 16. HypoNatremia Plan: [facility]iology services Notes are reviewed will monitor H&H and proceed with Paracentesis Poor Prognosis Discussed the care with the sister; NATHANIEL. She requested Full code Fluid management per Nephro POLST is filled out, Subjective ROS Limited/Unobtainable: Yes Allergies: Coded Allergies: No Known Allergies (Unverified , 10/06/16) Objective Last 24 Hour Vital Signs Date Time Temp Pulse Resp B/P Pulse Ox O2 Delivery O2 Flow Rate FiO2 10/12/16 12:00 97.5 97 21 122/62 97 Nasal Cannula 5.0 10/12/16 12:00 96 10/12/16 08:00 103 10/12/16 07:24 97.2 104 22 105/64 100 Nasal Cannula 5.0 10/12/16 05:15 97.3 96 20 110/55 100 Nasal Cannula 4.0 10/12/16 04:00 97.0 110 20 85/50 100 Nasal Cannula 4.0 10/12/16 04:00 88 10/12/16 00:00 96.6 93 19 109/55 100 Nasal Cannula 4.0 10/12/16 00:00 88 10/11/16 20:00 97.4 91 20 100/60 100 Nasal Cannula 4.0 10/11/16 20:00 88 10/11/16 16:12 91 10/11/16 16:01 98.2 93 20 112/58 99 Nasal Cannula 4.0 10/11/16 13:52 97.6 98 20 115/62 100 Nasal Cannula 4.0 Intake and Output 10/11/16 10/12/16 19:00 07:00 Intake Total 360 ml 220 ml Output Total 500 ml 600 ml Balance -140 ml -380 ml Intake Oral 360 ml 220 ml Output Urine Total 500 ml 600 ml # Voids 1 # Bowel Movements 2 15 Laboratory Tests 10/12/16 04:40: White Blood Count 3.4L, Red Blood Count 2.35L, Hemoglobin 7.8L, Hematocrit 24.4L , Mean Corpuscular Volume 104H, Mean Corpuscular Hemoglobin 33.1H, Mean Corpuscular Hemoglobin Concent 32.0, Red Cell Distribution Width 18.9H, Platelet Count 38L, Mean Platelet Volume 8.5, Neutrophils (%) (Auto) , Lymphocytes (%) (Auto) , Monocytes (%) (Auto) , Eosinophils (%) (Auto) , Basophils (%) (Auto) , Differential Total Cells Counted 100, Neutrophils % ( Manual) 71, Lymphocytes % (Manual) 20, Monocytes % (Manual) 7, Eosinophils % ( Manual) 2, Basophils % (Manual) 0, Band Neutrophils 0, Platelet Estimate DecreasedL, Platelet Morphology Normal, Hypochromasia 1+, Anisocytosis 1+, Macrocytosis 1+, Sodium Level 132L, Potassium Level 4.6, Chloride Level 96L, Carbon Dioxide Level 22, Anion Gap 14, Blood Urea Nitrogen 41H, Creatinine 2.0H , Estimat Glomerular Filtration Rate 40.8, Glucose Level 104, Calcium Level 8.1L , Total Bilirubin 2.1H, Direct Bilirubin 1.2H, Aspartate Amino Transf (AST/SGOT ) 81H, Alanine Aminotransferase (ALT/SGPT) 31, Alkaline Phosphatase 162H, Total Protein 5.7L, Albumin 1.5L, Globulin 4.2, Albumin/Globulin Ratio 0.3L 10/12/16 08:45: White Blood Count 4.9, Red Blood Count 2.76L, Hemoglobin 9.2L, Hematocrit 29.0L , Mean Corpuscular Volume 105H, Mean Corpuscular Hemoglobin 33.2H, Mean Corpuscular Hemoglobin Concent 31.6L, Red Cell Distribution Width 18.5H, Platelet Count 48L, Mean Platelet Volume 6.8, Neutrophils (%) (Auto) , Lymphocytes (%) (Auto) , Monocytes (%) (Auto) , Eosinophils (%) (Auto) , Basophils (%) (Auto) , Differential Total Cells Counted 100, Neutrophils % ( Manual) 82H, Lymphocytes % (Manual) 6L, Monocytes % (Manual) 12H, Eosinophils % (Manual) 0, Basophils % (Manual) 0, Band Neutrophils 0, Platelet Estimate DecreasedL, Platelet Morphology Normal, Hypochromasia 1+, Anisocytosis 1+, Macrocytosis 1+ Height (Feet): 5 Height (Inches): 9.00 Weight (Pounds): 160 General Appearance: no apparent distress EENT: PERRL/EOMI Neck: supple Cardiovascular: normal rate Respiratory/Chest: lungs clear Abdomen: soft, distended, other - Diffuse severe ascitis Edema: 3+ Leg (R), 3+ Pedal (L), 3+ Pedal (R) 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 at base line, AOX2 Shanita Oden MD October 12, 2016 13:42
--- NOTE | 2016-10-12 13:47 | General Progress Note ---
Assessment/Plan Status: unchanged Status Narrative Cr 2 Na 132 Assessment/Plan Acute renal failure- Severe Anemia h/o HyperKalemia- resolved Proteinuria UTI High INR others: 1. s/p Status post mechanical fall. 2. Left periprosthetic femoral fracture. 3. Alcoholic liver cirrhosis. 4. s/p Elevated transaminase. 5. 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 6. Elevated tumor markers (CEA, AFP/alpha-fetoprotein). 7. Acute hepatic encephalopathy. 8. Hypertension. 9. Dementia. 10. Psychosis. 11. History of hemiarthroplasty, left hip, recent. 12. Hepatitis C. 13. History of alcohol abuse. 14. Anemia of chronic disease. 15. Thrombocytopenia, secondary to alcohol abuse. Plan; Transfuse as needed Midodrine for low BP hold mind altering meds- antibiotics - avoid nephrotoxics urine studies monitor renal parameters Tap Ascitis PRN consider comfort care- prognosis dismal- per orders Subjective ROS Limited/Unobtainable: No Constitutional: Reports: malaise, weakness Allergies: Coded Allergies: No Known Allergies (Unverified , 10/06/16) Objective Last 24 Hour Vital Signs Date Time Temp Pulse Resp B/P Pulse Ox O2 Delivery O2 Flow Rate FiO2 10/12/16 12:00 97.5 97 21 122/62 97 Nasal Cannula 5.0 10/12/16 12:00 96 10/12/16 08:00 103 10/12/16 07:24 97.2 104 22 105/64 100 Nasal Cannula 5.0 10/12/16 05:15 97.3 96 20 110/55 100 Nasal Cannula 4.0 10/12/16 04:00 97.0 110 20 85/50 100 Nasal Cannula 4.0 10/12/16 04:00 88 10/12/16 00:00 96.6 93 19 109/55 100 Nasal Cannula 4.0 10/12/16 00:00 88 10/11/16 20:00 97.4 91 20 100/60 100 Nasal Cannula 4.0 10/11/16 20:00 88 10/11/16 16:12 91 10/11/16 16:01 98.2 93 20 112/58 99 Nasal Cannula 4.0 10/11/16 13:52 97.6 98 20 115/62 100 Nasal Cannula 4.0 Intake and Output 10/11/16 10/12/16 19:00 07:00 Intake Total 360 ml 220 ml Output Total 500 ml 600 ml Balance -140 ml -380 ml Intake Oral 360 ml 220 ml Output Urine Total 500 ml 600 ml # Voids 1 # Bowel Movements 2 15 Laboratory Tests 10/12/16 04:40: White Blood Count 3.4L, Red Blood Count 2.35L, Hemoglobin 7.8L, Hematocrit 24.4L , Mean Corpuscular Volume 104H, Mean Corpuscular Hemoglobin 33.1H, Mean Corpuscular Hemoglobin Concent 32.0, Red Cell Distribution Width 18.9H, Platelet Count 38L, Mean Platelet Volume 8.5, Neutrophils (%) (Auto) , Lymphocytes (%) (Auto) , Monocytes (%) (Auto) , Eosinophils (%) (Auto) , Basophils (%) (Auto) , Differential Total Cells Counted 100, Neutrophils % ( Manual) 71, Lymphocytes % (Manual) 20, Monocytes % (Manual) 7, Eosinophils % ( Manual) 2, Basophils % (Manual) 0, Band Neutrophils 0, Platelet Estimate DecreasedL, Platelet Morphology Normal, Hypochromasia 1+, Anisocytosis 1+, Macrocytosis 1+, Sodium Level 132L, Potassium Level 4.6, Chloride Level 96L, Carbon Dioxide Level 22, Anion Gap 14, Blood Urea Nitrogen 41H, Creatinine 2.0H , Estimat Glomerular Filtration Rate 40.8, Glucose Level 104, Calcium Level 8.1L , Total Bilirubin 2.1H, Direct Bilirubin 1.2H, Aspartate Amino Transf (AST/SGOT ) 81H, Alanine Aminotransferase (ALT/SGPT) 31, Alkaline Phosphatase 162H, Total Protein 5.7L, Albumin 1.5L, Globulin 4.2, Albumin/Globulin Ratio 0.3L 10/12/16 08:45: White Blood Count 4.9, Red Blood Count 2.76L, Hemoglobin 9.2L, Hematocrit 29.0L , Mean Corpuscular Volume 105H, Mean Corpuscular Hemoglobin 33.2H, Mean Corpuscular Hemoglobin Concent 31.6L, Red Cell Distribution Width 18.5H, Platelet Count 48L, Mean Platelet Volume 6.8, Neutrophils (%) (Auto) , Lymphocytes (%) (Auto) , Monocytes (%) (Auto) , Eosinophils (%) (Auto) , Basophils (%) (Auto) , Differential Total Cells Counted 100, Neutrophils % ( Manual) 82H, Lymphocytes % (Manual) 6L, Monocytes % (Manual) 12H, Eosinophils % (Manual) 0, Basophils % (Manual) 0, Band Neutrophils 0, Platelet Estimate DecreasedL, Platelet Morphology Normal, Hypochromasia 1+, Anisocytosis 1+, Macrocytosis 1+ Height (Feet): 5 Height (Inches): 9.00 Weight (Pounds): 160 General Appearance: no apparent distress, lethargic, confused Neck: limited range of motion Cardiovascular: tachycardia Respiratory/Chest: decreased breath sounds Abdomen: distended Edema: 3+ Arm (L), 3+ Arm (R), 3+ Leg (L), 3+ Leg (R), 3+ Pedal (L), 3+ Pedal ( R), 3+ Generalized Objective other PE not changed PRINCESS PALACIO October 12, 2016 13:47
[2016-10-12] MEDS: Milk of Magnesia 30ml Ud ORAL SCH (21:49)
[2016-10-12] MEDS: OLANZapine 2.5mg tab ORAL SCH (21:49)
--- NOTE | 2016-10-12 23:53 | Cardiology Progress Note ---
Assessment/Plan Assessment/Plan 1. Hx of junctional rhythm, responded to dopamine gtt, now in sinus rhythm, LVEF at 65%, continue hemodynamic observation, on midodrine. 2. History of hypertension, now hypotensive on midodrine. May consider increasing dose of midodrine if persistent. Subjective Subjective Sinus rhythm at 90. No cardiac events. Objective Last 24 Hour Vital Signs Date Time Temp Pulse Resp B/P Pulse Ox O2 Delivery O2 Flow Rate FiO2 10/12/16 20:00 89 10/12/16 20:00 97.7 90 20 90/60 100 Nasal Cannula 5.0 10/12/16 16:00 97.2 90 21 92/43 100 Nasal Cannula 5.0 10/12/16 15:37 91 10/12/16 12:00 97.5 97 21 122/62 97 Nasal Cannula 5.0 10/12/16 12:00 96 10/12/16 08:00 103 10/12/16 07:24 97.2 104 22 105/64 100 Nasal Cannula 5.0 10/12/16 05:15 97.3 96 20 110/55 100 Nasal Cannula 4.0 10/12/16 04:00 97.0 110 20 85/50 100 Nasal Cannula 4.0 10/12/16 04:00 88 10/12/16 00:00 96.6 93 19 109/55 100 Nasal Cannula 4.0 10/12/16 00:00 88 Intake and Output 10/11/16 10/12/16 19:00 07:00 Intake Total 360 ml 220 ml Output Total 500 ml 600 ml Balance -140 ml -380 ml Intake Oral 360 ml 220 ml Output Urine Total 500 ml 600 ml # Voids 1 # Bowel Movements 2 15 2D Echo: LVEF 65%, Mild LVH, Grade I LVDD, Mod MR, RVSP 29 mmHg Laboratory Tests Test 10/12/16 04:40 10/12/16 08:45 White Blood Count 3.4 K/UL (4.8-10.8) L 4.9 K/UL (4.8-10.8) Red Blood Count 2.35 M/UL (4.70-6.10) L 2.76 M/UL (4.70-6.10) L Hemoglobin 7.8 G/DL (14.2-18.0) L 9.2 G/DL (14.2-18.0) L Hematocrit 24.4 % (42.0-52.0) L 29.0 % (42.0-52.0) L Mean Corpuscular Volume 104 FL (80-99) H 105 FL (80-99) H Mean Corpuscular Hemoglobin 33.1 PG (27.0-31.0) H 33.2 PG (27.0-31.0) H Mean Corpuscular Hemoglobin Concent 32.0 G/DL (32.0-36.0) 31.6 G/DL (32.0-36.0) L Red Cell Distribution Width 18.9 % (11.6-14.8) H 18.5 % (11.6-14.8) H Platelet Count 38 K/UL (150-450) L 48 K/UL (150-450) L Mean Platelet Volume 8.5 FL (6.5-10.1) 6.8 FL (6.5-10.1) Neutrophils (%) (Auto) % (45.0-75.0) % (45.0-75.0) Lymphocytes (%) (Auto) % (20.0-45.0) % (20.0-45.0) Monocytes (%) (Auto) % (1.0-10.0) % (1.0-10.0) Eosinophils (%) (Auto) % (0.0-3.0) % (0.0-3.0) Basophils (%) (Auto) % (0.0-2.0) % (0.0-2.0) Differential Total Cells Counted 100 100 Neutrophils % (Manual) 71 % (45-75) 82 % (45-75) H Lymphocytes % (Manual) 20 % (20-45) 6 % (20-45) L Monocytes % (Manual) 7 % (1-10) 12 % (1-10) H Eosinophils % (Manual) 2 % (0-3) 0 % (0-3) Basophils % (Manual) 0 % (0-2) 0 % (0-2) Band Neutrophils 0 % (0-8) 0 % (0-8) Platelet Estimate Decreased L Decreased L Platelet Morphology Normal Normal Hypochromasia 1+ 1+ Anisocytosis 1+ 1+ Macrocytosis 1+ 1+ Sodium Level 132 mEQ/L (135-145) L Potassium Level 4.6 mEQ/L (3.4-4.9) Chloride Level 96 mEQ/L (98-107) L Carbon Dioxide Level 22 mEQ/L (20-30) Anion Gap 14 (5-15) Blood Urea Nitrogen 41 mg/dL (7-23) H Creatinine 2.0 mg/dL (0.7-1.2) H Estimat Glomerular Filtration Rate 40.8 mL/min (>60) Glucose Level 104 mg/dL (74-106) Calcium Level 8.1 mg/dL (8.6-10.2) L Total Bilirubin 2.1 mg/dL (0.0-1.2) H Direct Bilirubin 1.2 mg/dL (0.1-0.3) H Aspartate Amino Transf (AST/SGOT) 81 U/L (5-40) H Alanine Aminotransferase (ALT/SGPT) 31 U/L (3-41) Alkaline Phosphatase 162 U/L (40-129) H Total Protein 5.7 g/dL (6.6-8.7) L Albumin 1.5 g/dL (3.5-5.2) L Globulin 4.2 g/dL Albumin/Globulin Ratio 0.3 (1.0-2.7) L Objective GENERAL: The patient is a very unfortunate 66-year-old gentleman, alert and awake, in no apparent respiratory distress. HEENT: Atraumatic and normocephalic. Anicteric. Pupils are equal, round, and reactive to light and accommodation. Extraocular muscles intact. NECK: JVP is 5 cm, but no carotid bruit. Carotid upstrokes 2+ bilaterally. CARDIOVASCULAR: Normal S1 and S2. Regular rate and rhythm. A 2/6 mid systolic murmur left sternal border. PMI is at fourth intercostal space in the midclavicular line. LUNGS: Diminished breath sounds at both bases. ABDOMEN: Distended with ascites. Positive shifting dullness. EXTREMITIES: There is 1+ edema bilaterally. ASHLEY URIBE October 12, 2016 23:53
[2016-10-13] VITALS (7 sets, daily range): BP systolic 85–130; BP diastolic 47–79
[2016-10-13] MEDS: Ketorolac 30mg Inj IV PRN ×2 (01:09→17:53)
[2016-10-13 05:38] LABS: MEAN CORPUSCULAR HEMOGLOBIN 33.8 PG (27.0-31.0); MEAN CORPUSCULAR HGB CONC 32.2 G/DL (32.0-36.0); MEAN CORPUSCULAR VOLUME 105 FL (80-99); MEAN PLATELET VOLUME 7.3 FL (6.5-10.1); PLATELET COUNT 44 K/UL (150-450); RED BLOOD COUNT 2.37 M/UL (4.70-6.10); RED CELL DISTRIBUTION WIDTH 18.9 % (11.6-14.8); WHITE BLOOD COUNT 3.6 K/UL (4.8-10.8)
[2016-10-13 05:50] LABS: INR 1.9 (0.9-1.1); PROTHROMBIN TIME 19.2 SEC (9.30-11.50)
[2016-10-13 06:33] LABS: ALBUMIN/GLOBULIN RATIO 0.4 (1.0-2.7); CALCIUM 8.2 mg/dL (8.6-10.2); GLOMERULAR FILTRATION RATE 40.8 mL/min (>60); POTASSIUM 4.7 mEQ/L (3.4-4.9); TOTAL PROTEIN 5.9 g/dL (6.6-8.7)
[2016-10-13 06:47] LABS: BILIRUBIN,DIRECT 1.3 mg/dL (0.1-0.3)
--- NOTE | 2016-10-13 07:48 | Infectious Diseases Prog Note ---
Assessment/Plan Assessment/Plan A: 1. Cirrhosis. 2. Hepatitis C. 3. History of depression. 4. History of hypertension and bradycardia in the past. 5. History of dementia. 6. History of alcohol abuse. 7. History of anemia. 8. History of left hip surgery four months ago. 9. History of ascites with the recent paracentesis, but did not show any evidence of SBP 10. Funguria P; continue Fluconazole Subjective ROS Limited/Unobtainable: Yes Constitutional: Reports: no symptoms Respiratory: Reports: no symptoms Gastrointestinal/Abdominal: Reports: no symptoms Musculoskeletal: Reports: swelling Allergies: Coded Allergies: No Known Allergies (Unverified , 10/06/16) Objective Vital Signs Last 24 Hour Vital Signs Date Time Temp Pulse Resp B/P Pulse Ox O2 Delivery O2 Flow Rate FiO2 10/13/16 07:44 94 18 Nasal Cannula 2.0 10/13/16 07:44 100 Nasal Cannula 2.0 10/13/16 06:02 101/56 10/13/16 04:00 91 10/13/16 04:00 97.7 94 20 85/52 100 Nasal Cannula 2.0 10/13/16 03:58 91 18 Nasal Cannula 2.0 10/13/16 00:00 97.9 88 22 98/57 99 Nasal Cannula 5.0 10/13/16 00:00 86 10/12/16 20:00 89 10/12/16 20:00 97.7 90 20 90/60 100 Nasal Cannula 5.0 10/12/16 19:00 Nasal Cannula 2.0 28 10/12/16 19:00 100 Nasal Cannula 2.0 10/12/16 16:00 97.2 90 21 92/43 100 Nasal Cannula 5.0 10/12/16 15:37 91 10/12/16 12:00 97.5 97 21 122/62 97 Nasal Cannula 5.0 10/12/16 12:00 96 10/12/16 08:00 103 Height (Feet): 5 Height (Inches): 9.00 Weight (Pounds): 160 General Appearance: no acute distress HEENT: mucous membranes moist Respiratory/Chest: lungs clear Cardiovascular: normal rate Abdomen: soft, non tender Extremities: other - edema of legs Neurologic/Psychiatric: alert, responsive Laboratory Tests Test 10/12/16 08:45 10/13/16 04:00 White Blood Count 4.9 K/UL (4.8-10.8) 3.6 K/UL (4.8-10.8) L Red Blood Count 2.76 M/UL (4.70-6.10) L 2.37 M/UL (4.70-6.10) L Hemoglobin 9.2 G/DL (14.2-18.0) L 8.0 G/DL (14.2-18.0) L Hematocrit 29.0 % (42.0-52.0) L 24.9 % (42.0-52.0) L Mean Corpuscular Volume 105 FL (80-99) H 105 FL (80-99) H Mean Corpuscular Hemoglobin 33.2 PG (27.0-31.0) H 33.8 PG (27.0-31.0) H Mean Corpuscular Hemoglobin Concent 31.6 G/DL (32.0-36.0) L 32.2 G/DL (32.0-36.0) Red Cell Distribution Width 18.5 % (11.6-14.8) H 18.9 % (11.6-14.8) H Platelet Count 48 K/UL (150-450) L 44 K/UL (150-450) L Mean Platelet Volume 6.8 FL (6.5-10.1) 7.3 FL (6.5-10.1) Neutrophils (%) (Auto) % (45.0-75.0) % (45.0-75.0) Lymphocytes (%) (Auto) % (20.0-45.0) % (20.0-45.0) Monocytes (%) (Auto) % (1.0-10.0) % (1.0-10.0) Eosinophils (%) (Auto) % (0.0-3.0) % (0.0-3.0) Basophils (%) (Auto) % (0.0-2.0) % (0.0-2.0) Differential Total Cells Counted 100 Neutrophils % (Manual) 82 % (45-75) H Pending Lymphocytes % (Manual) 6 % (20-45) L Pending Monocytes % (Manual) 12 % (1-10) H Eosinophils % (Manual) 0 % (0-3) Basophils % (Manual) 0 % (0-2) Band Neutrophils 0 % (0-8) Platelet Estimate Decreased L Pending Platelet Morphology Normal Pending Hypochromasia 1+ Anisocytosis 1+ Macrocytosis 1+ Prothrombin Time 19.2 SEC (9.30-11.50) H Prothromb Time International Ratio 1.9 (0.9-1.1) H Sodium Level 133 mEQ/L (135-145) L Potassium Level 4.7 mEQ/L (3.4-4.9) Chloride Level 98 mEQ/L (98-107) Carbon Dioxide Level 20 mEQ/L (20-30) Anion Gap 15 (5-15) Blood Urea Nitrogen 42 mg/dL (7-23) H Creatinine 2.0 mg/dL (0.7-1.2) H Estimat Glomerular Filtration Rate 40.8 mL/min (>60) Glucose Level 105 mg/dL (74-106) Calcium Level 8.2 mg/dL (8.6-10.2) L Total Bilirubin 2.2 mg/dL (0.0-1.2) H Direct Bilirubin 1.3 mg/dL (0.1-0.3) H Aspartate Amino Transf (AST/SGOT) 81 U/L (5-40) H Alanine Aminotransferase (ALT/SGPT) 29 U/L (3-41) Alkaline Phosphatase 169 U/L (40-129) H Total Protein 5.9 g/dL (6.6-8.7) L Albumin 1.8 g/dL (3.5-5.2) L Globulin 4.1 g/dL Albumin/Globulin Ratio 0.4 (1.0-2.7) L Alpha Fetoprotein Pending Current Medications Medications (Trade) Dose Ordered Sig/Carolynn Route PRN Reason Start Time Stop Time Status Last Admin Dose Admin Acetaminophen (Tylenol) 650 mg Q4H PRN ORAL For Pain 1-3 10/11/16 16:45 11/10/16 16:44 Acetaminophen/ Hydrocodone Bitart ([place] 5/325) 1 tab Q4H PRN ORAL For Pain 4-10 10/11/16 16:45 10/18/16 16:44 Albuterol/ Ipratropium (DuoNeb 0.5-3(2.5)mg/3ml) 3 ml Q4H PRN HHN Shortness of Breath 10/12/16 08:45 10/17/16 08:44 Bisacodyl (Dulcolax) 10 mg DAILYPRN PRN RECTAL Constipation 10/11/16 20:45 11/10/16 20:44 Chlorhexidine Gluconate (Tania-Hex 2%) 1 applic DAILY TOPIC 10/12/16 09:00 11/11/16 08:59 10/12/16 08:11 Docusate Sodium (Colace) 100 mg TWICE A DAY ORAL 10/11/16 18:00 11/10/16 17:59 10/12/16 17:26 Ergocalciferol (Drisdol) 50,000 intlu MoTh ORAL 10/14/16 21:00 11/13/16 20:59 Finasteride (Proscar) 5 mg DAILY ORAL 10/12/16 09:00 11/11/16 08:59 10/12/16 08:16 Fluconazole (Diflucan) 100 mg DAILY ORAL 10/12/16 09:00 10/19/16 08:59 10/12/16 08:10 Ketorolac Tromethamine (Toradol 30mg) 15 mg BID PRN IV pain 4-10 if norco ineffective 10/11/16 18:00 10/16/16 17:59 10/13/16 01:09 Lactulose (Cephulac) 10 gm BID ORAL 10/11/16 18:00 11/10/16 17:59 10/12/16 17:26 Magnesium Hydroxide (Mom) 30 ml QHS ORAL 10/11/16 21:00 11/10/16 20:59 10/12/16 21:49 Midodrine (Pro-Amatine) 10 mg THREE TIMES A DAY ORAL 10/11/16 18:00 11/10/16 17:59 10/12/16 17:26 Multivitamins Therapeutic (Therapeutic Multivitamin) 1 ea DAILY ORAL 10/12/16 09:00 11/11/16 08:59 10/12/16 08:10 Olanzapine (ZyPREXA) 2.5 mg BEDTIME ORAL 10/11/16 21:00 11/10/16 20:59 10/12/16 21:49 Pantoprazole (Protonix) 40 mg EVERY 12 HOURS ORAL 10/11/16 21:00 11/10/16 20:59 10/12/16 21:49 Rifaximin (Xifaxan) 550 mg TWICE A DAY ORAL 10/11/16 18:00 10/18/16 17:59 10/12/16 17:26 Sennosides (Senokot) 8.6 mg BEDTIME ORAL 10/11/16 21:00 11/10/16 20:59 10/12/16 21:49 Tamsulosin HCl (Flomax) 0.4 mg BID ORAL 10/11/16 18:00 11/10/16 17:59 10/12/16 17:26 Zinc Sulfate (Zinc Sulfate) 220 mg DAILY ORAL 10/12/16 09:00 11/11/16 08:59 10/12/16 08:10 YOLANDE MANCIA October 13, 2016 07:48
--- NOTE | 2016-10-13 08:00 | Pulmonology Progress Note ---
Assessment/Plan Assessment/Plan ASSESSMENT abdominal pain recurrent ascites alcoholic liver cirrhosis chronic hepatic encephalopathy end stage liver disease elevated tumor markers (CEA, AFP) anasarca acute on chronic renal failure ( more chronic component) coagulopathy (secondary to alcoholic liver cirrhosis). Hypotension hepatitis C elevated LFT possible yeast UTI hx of ETOH abuse thrombocytopenia anemia hyponatremia dementia psychosis PLAN OF CARE RUFUS paracentesis pending O2 HHN prn, currently on O2 via NC venous Duplex BLE negative GI follows ammonia WNL continue lactulose and Xifaxan PPI s/p vit K AFP pending prior EGD with evidence of portal hypertensive gastropathy,, biopsy unremarkable, distant esophageal varices grade 1-2 s any stigmata renal parameters at baseline nephro follows renal US c/w medical renal disease Bilateral nonobstructive nephrolithiasis 5.5 cm cystic-appearing structure adjacent to lower pole of left kidney. This may represent the left psoas hematoma seen on CT scan. Liver findings compatible with cirrhosis Moderate ascites, nonspecific, may be secondary to portal hypertension trial of Albumin and Lasix avoid nephrotic closely monitor renal parameters and lytes ID follows, urine cx + yeast, antifungal recent paracentesis no evidence of SBE monitor HH transfuse prn monitor BP, on Midodrine no Heparin 2 to thrombocytopenia HH trending down, stool OB overall prognosis poor consider palliative care case discussed and evaluated by supervising physician Subjective Allergies: Coded Allergies: No Known Allergies (Unverified , 10/06/16) Subjective in RUFUS more awake sitter at the bedside no signs of respiratory distress HH trending down Objective Last 24 Hour Vital Signs Date Time Temp Pulse Resp B/P Pulse Ox O2 Delivery O2 Flow Rate FiO2 10/13/16 07:45 Nasal Cannula 2.0 28 10/13/16 07:44 94 18 Nasal Cannula 2.0 10/13/16 07:44 100 Nasal Cannula 2.0 10/13/16 06:02 101/56 10/13/16 04:00 91 10/13/16 04:00 97.7 94 20 85/52 100 Nasal Cannula 2.0 10/13/16 03:58 91 18 Nasal Cannula 2.0 10/13/16 00:00 97.9 88 22 98/57 99 Nasal Cannula 5.0 10/13/16 00:00 86 10/12/16 20:00 89 10/12/16 20:00 97.7 90 20 90/60 100 Nasal Cannula 5.0 10/12/16 19:00 Nasal Cannula 2.0 28 10/12/16 19:00 100 Nasal Cannula 2.0 10/12/16 16:00 97.2 90 21 92/43 100 Nasal Cannula 5.0 10/12/16 15:37 91 10/12/16 12:00 97.5 97 21 122/62 97 Nasal Cannula 5.0 10/12/16 12:00 96 10/12/16 08:00 103 Intake and Output 10/12/16 10/13/16 19:00 07:00 Intake Total 738 ml 100 ml Output Total 400 ml 350 ml Balance 338 ml -250 ml Intake Oral 638 ml 100 ml IV Total 100 ml Output Urine Total 400 ml 350 ml # Bowel Movements 2 6 Objective General Appearance: no acute distress, awake HEENT: normocephalic, atraumatic Respiratory/Chest: decreased breath sounds at bases Cardiovascular: normal rate, regular rhythm Abdomen: normal bowel sounds, abdomen distended, mild diffused tenderness, no guarding, no rebound Extremities: other - +3 edema BLE Neurologic/Psychiatric: abnormal gait, awake Musculoskeletal: atrophy BLE Laboratory Tests 10/12/16 08:45: White Blood Count 4.9, Red Blood Count 2.76L, Hemoglobin 9.2L, Hematocrit 29.0L , Mean Corpuscular Volume 105H, Mean Corpuscular Hemoglobin 33.2H, Mean Corpuscular Hemoglobin Concent 31.6L, Red Cell Distribution Width 18.5H, Platelet Count 48L, Mean Platelet Volume 6.8, Neutrophils (%) (Auto) , Lymphocytes (%) (Auto) , Monocytes (%) (Auto) , Eosinophils (%) (Auto) , Basophils (%) (Auto) , Differential Total Cells Counted 100, Neutrophils % ( Manual) 82H, Lymphocytes % (Manual) 6L, Monocytes % (Manual) 12H, Eosinophils % (Manual) 0, Basophils % (Manual) 0, Band Neutrophils 0, Platelet Estimate DecreasedL, Platelet Morphology Normal, Hypochromasia 1+, Anisocytosis 1+, Macrocytosis 1+ 10/13/16 04:00: White Blood Count 3.6L, Red Blood Count 2.37L, Hemoglobin 8.0L, Hematocrit 24.9L , Mean Corpuscular Volume 105H, Mean Corpuscular Hemoglobin 33.8H, Mean Corpuscular Hemoglobin Concent 32.2, Red Cell Distribution Width 18.9H, Platelet Count 44L, Mean Platelet Volume 7.3, Neutrophils (%) (Auto) , Lymphocytes (%) (Auto) , Monocytes (%) (Auto) , Eosinophils (%) (Auto) , Basophils (%) (Auto) , Neutrophils % (Manual) [Pending], Lymphocytes % (Manual) [Pending], Platelet Estimate [Pending], Platelet Morphology [Pending], Prothrombin Time 19.2H, Prothromb Time International Ratio 1.9H, Sodium Level 133L, Potassium Level 4.7, Chloride Level 98, Carbon Dioxide Level 20, Anion Gap 15, Blood Urea Nitrogen 42H, Creatinine 2.0H, Estimat Glomerular Filtration Rate 40.8, Glucose Level 105, Calcium Level 8.2L, Total Bilirubin 2.2H, Direct Bilirubin 1.3H, Aspartate Amino Transf (AST/SGOT) 81H, Alanine Aminotransferase (ALT/SGPT) 29, Alkaline Phosphatase 169H, Total Protein 5.9L, Albumin 1.8L, Globulin 4.1, Albumin/Globulin Ratio 0.4L, Alpha Fetoprotein [Pending] Current Medications Medications (Trade) Dose Ordered Sig/Carolynn Route PRN Reason Start Time Stop Time Status Last Admin Dose Admin Acetaminophen (Tylenol) 650 mg Q4H PRN ORAL For Pain 1-3 10/11/16 16:45 11/10/16 16:44 Acetaminophen/ Hydrocodone Bitart ([place] 5/325) 1 tab Q4H PRN ORAL For Pain 4-10 10/11/16 16:45 10/18/16 16:44 Albuterol/ Ipratropium (DuoNeb 0.5-3(2.5)mg/3ml) 3 ml Q4H PRN HHN Shortness of Breath 10/12/16 08:45 10/17/16 08:44 Bisacodyl (Dulcolax) 10 mg DAILYPRN PRN RECTAL Constipation 10/11/16 20:45 11/10/16 20:44 Chlorhexidine Gluconate (Tania-Hex 2%) 1 applic DAILY TOPIC 10/12/16 09:00 11/11/16 08:59 10/12/16 08:11 Docusate Sodium (Colace) 100 mg TWICE A DAY ORAL 10/11/16 18:00 11/10/16 17:59 10/12/16 17:26 Ergocalciferol (Drisdol) 50,000 intlu MoTh ORAL 10/14/16 21:00 11/13/16 20:59 Finasteride (Proscar) 5 mg DAILY ORAL 10/12/16 09:00 11/11/16 08:59 10/12/16 08:16 Fluconazole (Diflucan) 100 mg DAILY ORAL 10/12/16 09:00 10/19/16 08:59 10/12/16 08:10 Ketorolac Tromethamine (Toradol 30mg) 15 mg BID PRN IV pain 4-10 if norco ineffective 10/11/16 18:00 10/16/16 17:59 10/13/16 01:09 Lactulose (Cephulac) 10 gm BID ORAL 10/11/16 18:00 11/10/16 17:59 10/12/16 17:26 Magnesium Hydroxide (Mom) 30 ml QHS ORAL 10/11/16 21:00 11/10/16 20:59 10/12/16 21:49 Midodrine (Pro-Amatine) 10 mg THREE TIMES A DAY ORAL 10/11/16 18:00 11/10/16 17:59 10/12/16 17:26 Multivitamins Therapeutic (Therapeutic Multivitamin) 1 ea DAILY ORAL 10/12/16 09:00 11/11/16 08:59 10/12/16 08:10 Olanzapine (ZyPREXA) 2.5 mg BEDTIME ORAL 10/11/16 21:00 11/10/16 20:59 10/12/16 21:49 Pantoprazole (Protonix) 40 mg EVERY 12 HOURS ORAL 10/11/16 21:00 11/10/16 20:59 10/12/16 21:49 Rifaximin (Xifaxan) 550 mg TWICE A DAY ORAL 10/11/16 18:00 10/18/16 17:59 10/12/16 17:26 Sennosides (Senokot) 8.6 mg BEDTIME ORAL 10/11/16 21:00 11/10/16 20:59 10/12/16 21:49 Tamsulosin HCl (Flomax) 0.4 mg BID ORAL 10/11/16 18:00 11/10/16 17:59 10/12/16 17:26 Zinc Sulfate (Zinc Sulfate) 220 mg DAILY ORAL 10/12/16 09:00 11/11/16 08:59 10/12/16 08:10 Leo CoyYesenia nettles NP October 13, 2016 08:00
[2016-10-13 08:05] LABS: ANISOCYTOSIS 1+; BAND NEUTROPHILS % (MANUAL) 1 % (0-8); BASOPHILS % (MANUAL) 0 % (0-2); EOSINOPHILS % (MANUAL) 5 % (0-3); HYPOCHROMASIA 1+; LYMPHOCYTES % (MANUAL) 14 % (20-45); MACROCYTES 1+; NEUTROPHILS % (MANUAL) 74 % (45-75); PLATELET ESTIMATE DECREASED; PLATELET MORPHOLOGY NORMAL; TOTAL CELLS COUNTED 100
--- NOTE | 2016-10-13 08:34 | General Progress Note ---
Assessment/Plan Problem List: (1) Gallstones ICD Codes: K80.20 - Calculus of gallbladder without cholecystitis without obstruction SNOMED: 713477955 (2) Anasarca ICD Codes: R60.1 - Generalized edema SNOMED: 769913863, 776391558 (3) hep c (4) Encephalopathy ICD Codes: G93.40 - Encephalopathy, unspecified SNOMED: 15881659, 234871205 (5) History of alcoholism ICD Codes: F10.21 - Alcohol dependence, in remission SNOMED: 558857597 (6) Coagulopathy ICD Codes: D68.9 - Coagulation defect, unspecified SNOMED: 17415360 (7) End-stage liver disease ICD Codes: K72.90 - Hepatic failure, unspecified without coma SNOMED: 227809371 (8) LFT elevation ICD Codes: R94.5 - Abnormal results of liver function studies SNOMED: 554190173 (9) Anemia ICD Codes: D64.9 - Anemia, unspecified SNOMED: 544950012 (10) Ascites ICD Codes: R18.8 - Other ascites SNOMED: 419935444 Qualifiers: Qualified Codes: R18.8 - Other ascites (11) Thrombocytopenia ICD Codes: D69.6 - Thrombocytopenia, unspecified SNOMED: 157732941 (12) Elevated CEA ICD Codes: R97.0 - Elevated carcinoembryonic antigen [CEA] SNOMED: 52741662, 494716873 Assessment/Plan lactulose and xifaxan ppi stool ob fu labs prn paracentesis AFP Subjective ROS Limited/Unobtainable: No Allergies: Coded Allergies: No Known Allergies (Unverified , 10/06/16) Subjective no event Objective Last 24 Hour Vital Signs Date Time Temp Pulse Resp B/P Pulse Ox O2 Delivery O2 Flow Rate FiO2 10/13/16 08:00 97.4 86 18 108/47 100 Nasal Cannula 4.0 10/13/16 07:45 Nasal Cannula 2.0 28 10/13/16 07:44 94 18 Nasal Cannula 2.0 10/13/16 07:44 100 Nasal Cannula 2.0 10/13/16 06:02 101/56 10/13/16 04:00 91 10/13/16 04:00 97.7 94 20 85/52 100 Nasal Cannula 2.0 10/13/16 03:58 91 18 Nasal Cannula 2.0 10/13/16 00:00 97.9 88 22 98/57 99 Nasal Cannula 5.0 10/13/16 00:00 86 10/12/16 20:00 89 10/12/16 20:00 97.7 90 20 90/60 100 Nasal Cannula 5.0 10/12/16 19:00 Nasal Cannula 2.0 28 10/12/16 19:00 100 Nasal Cannula 2.0 10/12/16 16:00 97.2 90 21 92/43 100 Nasal Cannula 5.0 10/12/16 15:37 91 10/12/16 12:00 97.5 97 21 122/62 97 Nasal Cannula 5.0 10/12/16 12:00 96 Intake and Output 10/12/16 10/13/16 19:00 07:00 Intake Total 738 ml 100 ml Output Total 400 ml 350 ml Balance 338 ml -250 ml Intake Oral 638 ml 100 ml IV Total 100 ml Output Urine Total 400 ml 350 ml # Bowel Movements 2 6 Laboratory Tests 10/12/16 08:45: White Blood Count 4.9, Red Blood Count 2.76L, Hemoglobin 9.2L, Hematocrit 29.0L , Mean Corpuscular Volume 105H, Mean Corpuscular Hemoglobin 33.2H, Mean Corpuscular Hemoglobin Concent 31.6L, Red Cell Distribution Width 18.5H, Platelet Count 48L, Mean Platelet Volume 6.8, Neutrophils (%) (Auto) , Lymphocytes (%) (Auto) , Monocytes (%) (Auto) , Eosinophils (%) (Auto) , Basophils (%) (Auto) , Differential Total Cells Counted 100, Neutrophils % ( Manual) 82H, Lymphocytes % (Manual) 6L, Monocytes % (Manual) 12H, Eosinophils % (Manual) 0, Basophils % (Manual) 0, Band Neutrophils 0, Platelet Estimate DecreasedL, Platelet Morphology Normal, Hypochromasia 1+, Anisocytosis 1+, Macrocytosis 1+ 10/13/16 04:00: White Blood Count 3.6L, Red Blood Count 2.37L, Hemoglobin 8.0L, Hematocrit 24.9L , Mean Corpuscular Volume 105H, Mean Corpuscular Hemoglobin 33.8H, Mean Corpuscular Hemoglobin Concent 32.2, Red Cell Distribution Width 18.9H, Platelet Count 44L, Mean Platelet Volume 7.3, Neutrophils (%) (Auto) , Lymphocytes (%) (Auto) , Monocytes (%) (Auto) , Eosinophils (%) (Auto) , Basophils (%) (Auto) , Differential Total Cells Counted 100, Neutrophils % ( Manual) 74, Lymphocytes % (Manual) 14L, Monocytes % (Manual) 6, Eosinophils % ( Manual) 5H, Basophils % (Manual) 0, Band Neutrophils 1, Platelet Estimate DecreasedL, Platelet Morphology Normal, Hypochromasia 1+, Anisocytosis 1+, Macrocytosis 1+, Prothrombin Time 19.2H, Prothromb Time International Ratio 1.9H , Sodium Level 133L, Potassium Level 4.7, Chloride Level 98, Carbon Dioxide Level 20, Anion Gap 15, Blood Urea Nitrogen 42H, Creatinine 2.0H, Estimat Glomerular Filtration Rate 40.8, Glucose Level 105, Calcium Level 8.2L, Total Bilirubin 2.2H, Direct Bilirubin 1.3H, Aspartate Amino Transf (AST/SGOT) 81H, Alanine Aminotransferase (ALT/SGPT) 29, Alkaline Phosphatase 169H, Total Protein 5.9L, Albumin 1.8L, Globulin 4.1, Albumin/Globulin Ratio 0.4L, Alpha Fetoprotein [Pending] Height (Feet): 5 Height (Inches): 9.00 Weight (Pounds): 160 General Appearance: lethargic EENT: normal ENT inspection Neck: supple Cardiovascular: normal rate Respiratory/Chest: decreased breath sounds Abdomen: normal bowel sounds, non tender, soft Extremities: non-tender Edema: 3+ Leg (L), 3+ Leg (R) THAI SEAMAN October 13, 2016 08:34
[2016-10-13] MEDS: Docusate 100mg cap ORAL SCH ×2 (09:00→17:44)
[2016-10-13] MEDS: Lactulose 20gm/30ml UDC ORAL SCH ×4 (09:00→18:00)
--- NOTE | 2016-10-13 09:15 | Consultation ---
DATE OF CONSULTATION: 10/10/2016 CARDIOLOGY CONSULTATION CONSULTING PHYSICIAN: Wilner Mcnair M.D. REFERRING PHYSICIAN: Shanita Oden M.D. REASON FOR CONSULTATION: Management of bilateral lower extremity edema. Management of hypotension. HISTORY OF PRESENT ILLNESS: The patient is a very unfortunate gentleman, who is known to me from previous admission to this facility, who most recently underwent open reduction and internal fixation of left hip at [facility]. A history of a junctional rhythm on early this month when he presented to this hospital and resides in the intensive care unit, responded well to dopamine therapy, history of hypotension for which he was on midodrine, and history of liver cirrhosis due to hepatitis C infection. He presents to the hospital with increasing edema, increasing abdominal girth, and drainage from the abdomen. The patient has history of end-stage liver disease with associated anasarca. On last admission, he had thoracentesis and also was placed on combination of Lasix and Aldactone. At this time, the patient is a poor historian. He has underlying dementia or encephalopathy due to chronic liver disease. At the time of arrival to the emergency department, he any chest pain or shortness of breath. Initial blood pressure was 101/58 and heart rate of 94. PAST MEDICAL HISTORY: Hepatic encephalopathy due to cirrhosis, hepatitis C virus infection, anemia, gastroesophageal reflux disease, depression, bipolar disorder, status post left hemiarthroplasty of hip, underwent revision of the fracture around the hardware at [facility]. PAST SURGICAL HISTORY: As mentioned above, hemiarthroplasty of the left hip followed by revision of the fracture around the hardware just about a month ago at [facility]. MEDICATIONS: List of medication includes acetaminophen 650 q.4 hours p.r.n. pain, Pro-Stat liquid 30 mL twice daily, ascorbic acid 500 mg once daily, 10 mg XL daily p.r.n. constipation, cranberry 450 mg p.o. daily, Colace 100 mg p.o. twice daily, vitamin D 50,000 units orally Friday and , ferrous sulfate 325 mg twice daily, Proscar 5 mg p.o. daily, [place] 5/325 one tablet q.4 h. p.r.n. pain, lactulose 15 mL oral b.i.d., milk of magnesia 30 mL oral at bedtime, midodrine 2.5 mg 3 times daily, vitamin one tablet daily, Fleet enema 230 mL rectal every two days p.r.n. constipation, Protonix 40 mg p.o. q.12 hours, Xifaxan 550 mg twice daily, senna two tablets p.o. at bedtime, Zosyn 0.4 mg p.o. twice daily, and zinc sulfate 220 mg daily. SOCIAL HISTORY: History of alcohol abuse in the past. Denies any alcohol or illicit drug use. REVIEW OF SYSTEMS: A 12-system review done essentially negative except what mentioned in the history of present illness. PHYSICAL EXAMINATION: VITAL SIGNS: Blood pressure at the time of arrival to the hospital was 101/58, pulse of 94, respirations 16, temperature 97.5 degrees Fahrenheit, and O2 saturation of 100% on room air. GENERAL: The patient is a very unfortunate 66-year-old male, who appears to be incoherent and in no apparent respiratory distress. HEENT: Atraumatic and normocephalic. Anicteric. Pupils are equal, round, and reactive to light and accommodation. Extraocular muscles intact. NECK: JVP is less than 5 cm. No carotid bruits. Carotid upstroke is 2+ bilaterally. CVS: Normal S1 and S2. Regular rate and rhythm. No murmurs, gallops, or rubs. PMI is at fourth intercostal space in the midclavicular line. LUNGS: Clear to auscultation bilaterally. ABDOMEN: Soft and nontender. There is distention with shifting dullness. EXTREMITIES: A 2+ bilateral lower extremity edema. LABORATORY FINDINGS: WBC 5.0, hemoglobin 9.0, hematocrit of 28.4, and platelet count 246,000. Chemistry, sodium 129, potassium 4.7, chloride 95, bicarbonate 19, BUN of 39, creatinine 1.8, glucose 122, and calcium is 8.1. Troponin I less than 0.3. Total bilirubin is 2.4 and direct is 1.3. AST 83 and ALT 32. INR is 1.8. Chest x-ray shows mild interstitial edema. A PICC line in place. ECG shows normal sinus rhythm with no premature ventricular contraction or ectopy. ASSESSMENT AND PLAN: 1. Hypotension. This patient requires albumin administration due to hypoalbuminemia due to chronic liver disease. We will continue on midodrine. Currently, off Lasix and Aldactone. 2. History of a junctional rhythm on last admission, currently sinus rhythm. 3. History of normal left ventricular systolic function with left ventricular ejection fraction of about 65% back on 09/25/2016. 4. History of thrombocytopenia due to chronic liver disease. 5. Bilateral lower extremity edema most likely due to hypoalbuminemia due to decreased oncotic pressure. 6. We will continue to monitor the patient in this hospitalization. I would like to thank, Dr. Oden, for allowing me to participate in the care of this patient. Wilner Mcnair M.D. DR: JESUS JOB#: [id number] CC:
[2016-10-13] MEDS: Rifaximin 550mg tab ORAL SCH ×2 (09:16→17:44)
[2016-10-13] MEDS: Zinc Sulfate 220mg cap ORAL SCH (09:17)
[2016-10-13] MEDS: Multivitamin w/Minerals tab ORAL SCH (09:17)
[2016-10-13] MEDS: Fluconazole 100mg tab ORAL SCH (09:18)
[2016-10-13] MEDS: Midodrine 10mg tab ORAL SCH ×3 (09:18→17:44)
[2016-10-13] MEDS: Tamsulosin 0.4mg cap ORAL SCH ×2 (09:18→17:44)
[2016-10-13] MEDS: Dyna-Hex 2% Top Sol 8oz TOPIC SCH (09:19)
--- NOTE | 2016-10-13 10:53 | General Progress Note ---
Assessment/Plan Status: unchanged Status Narrative Cr 2 Assessment/Plan Acute renal failure- Severe Anemia h/o HyperKalemia- resolved Proteinuria UTI High INR others: 1. s/p Status post mechanical fall. 2. Left periprosthetic femoral fracture. 3. Alcoholic liver cirrhosis. 4. s/p Elevated transaminase. 5. 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 6. Elevated tumor markers (CEA, AFP/alpha-fetoprotein). 7. Acute hepatic encephalopathy. 8. Hypertension. 9. Dementia. 10. Psychosis. 11. History of hemiarthroplasty, left hip, recent. 12. Hepatitis C. 13. History of alcohol abuse. 14. Anemia of chronic disease. 15. Thrombocytopenia, secondary to alcohol abuse. Plan; Transfuse as needed Midodrine for low BP hold mind altering meds- antibiotics - avoid nephrotoxics urine studies monitor renal parameters Tap Ascitis PRN consider comfort care- prognosis dismal- per orders Subjective ROS Limited/Unobtainable: No Constitutional: Reports: malaise, weakness Allergies: Coded Allergies: No Known Allergies (Unverified , 10/06/16) Objective Last 24 Hour Vital Signs Date Time Temp Pulse Resp B/P Pulse Ox O2 Delivery O2 Flow Rate FiO2 10/13/16 08:52 87 10/13/16 08:00 97.4 86 18 108/47 100 Nasal Cannula 4.0 10/13/16 07:45 Nasal Cannula 2.0 28 10/13/16 07:44 94 18 Nasal Cannula 2.0 10/13/16 07:44 100 Nasal Cannula 2.0 10/13/16 06:02 101/56 10/13/16 04:00 91 10/13/16 04:00 97.7 94 20 85/52 100 Nasal Cannula 2.0 10/13/16 03:58 91 18 Nasal Cannula 2.0 10/13/16 00:00 97.9 88 22 98/57 99 Nasal Cannula 5.0 10/13/16 00:00 86 10/12/16 20:00 89 10/12/16 20:00 97.7 90 20 90/60 100 Nasal Cannula 5.0 10/12/16 19:00 Nasal Cannula 2.0 28 10/12/16 19:00 100 Nasal Cannula 2.0 10/12/16 16:00 97.2 90 21 92/43 100 Nasal Cannula 5.0 10/12/16 15:37 91 10/12/16 12:00 97.5 97 21 122/62 97 Nasal Cannula 5.0 10/12/16 12:00 96 Intake and Output 10/12/16 10/13/16 19:00 07:00 Intake Total 738 ml 100 ml Output Total 400 ml 350 ml Balance 338 ml -250 ml Intake Oral 638 ml 100 ml IV Total 100 ml Output Urine Total 400 ml 350 ml # Bowel Movements 2 6 Laboratory Tests 10/13/16 04:00: White Blood Count 3.6L, Red Blood Count 2.37L, Hemoglobin 8.0L, Hematocrit 24.9L , Mean Corpuscular Volume 105H, Mean Corpuscular Hemoglobin 33.8H, Mean Corpuscular Hemoglobin Concent 32.2, Red Cell Distribution Width 18.9H, Platelet Count 44L, Mean Platelet Volume 7.3, Neutrophils (%) (Auto) , Lymphocytes (%) (Auto) , Monocytes (%) (Auto) , Eosinophils (%) (Auto) , Basophils (%) (Auto) , Differential Total Cells Counted 100, Neutrophils % ( Manual) 74, Lymphocytes % (Manual) 14L, Monocytes % (Manual) 6, Eosinophils % ( Manual) 5H, Basophils % (Manual) 0, Band Neutrophils 1, Platelet Estimate DecreasedL, Platelet Morphology Normal, Hypochromasia 1+, Anisocytosis 1+, Macrocytosis 1+, Prothrombin Time 19.2H, Prothromb Time International Ratio 1.9H , Sodium Level 133L, Potassium Level 4.7, Chloride Level 98, Carbon Dioxide Level 20, Anion Gap 15, Blood Urea Nitrogen 42H, Creatinine 2.0H, Estimat Glomerular Filtration Rate 40.8, Glucose Level 105, Calcium Level 8.2L, Total Bilirubin 2.2H, Direct Bilirubin 1.3H, Aspartate Amino Transf (AST/SGOT) 81H, Alanine Aminotransferase (ALT/SGPT) 29, Alkaline Phosphatase 169H, Total Protein 5.9L, Albumin 1.8L, Globulin 4.1, Albumin/Globulin Ratio 0.4L, Alpha Fetoprotein [Pending] Height (Feet): 5 Height (Inches): 9.00 Weight (Pounds): 160 General Appearance: no apparent distress Objective other PE not changed PRINCESS PALACIO October 13, 2016 10:53
--- NOTE | 2016-10-13 19:32 | General Progress Note ---
Assessment/Plan Status: unchanged Assessment/Plan 1. Abdominal pain secondary to recurrent Ascites expansion, infection!? 2. Anasarca, multifactorial 3. s/p Status post mechanical fall. 2. S/P Left periprosthetic femoral fracture and second surgery in hospital 3. Alcoholic liver cirrhosis. 4. Elevated transaminase. 5. 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 6. Elevated tumor markers (CEA, AFP/alpha-fetoprotein). 7. Chronic hepatic encephalopathy. 8. Hypertension. 9. Dementia. 10. Psychosis. 11. History of hemiarthroplasty, left hip, recent. 12. Hepatitis C. 13. History of alcohol abuse. 14. Acute on chronic Anemia 15. Thrombocytopenia, secondary to alcohol abuse. 16. HypoNatremia Plan: Nephro GI Cardiology services Notes are reviewed will monitor H&H and proceed with Paracentesis Poor Prognosis Discussed the care with the sister; NATHANIEL. She requested Full code Fluid management per Nephro POLST is filled out, Subjective ROS Limited/Unobtainable: Yes Allergies: Coded Allergies: No Known Allergies (Unverified , 10/06/16) Objective Last 24 Hour Vital Signs Date Time Temp Pulse Resp B/P Pulse Ox O2 Delivery O2 Flow Rate FiO2 10/13/16 18:27 97.1 92 20 130/79 100 Nasal Cannula 4.0 10/13/16 12:00 90 10/13/16 12:00 97.6 88 20 114/63 100 Nasal Cannula 4.0 10/13/16 08:52 87 10/13/16 08:00 97.4 86 18 108/47 100 Nasal Cannula 4.0 10/13/16 07:45 Nasal Cannula 2.0 28 10/13/16 07:44 94 18 Nasal Cannula 2.0 10/13/16 07:44 100 Nasal Cannula 2.0 10/13/16 06:02 101/56 10/13/16 04:00 91 10/13/16 04:00 97.7 94 20 85/52 100 Nasal Cannula 2.0 10/13/16 03:58 91 18 Nasal Cannula 2.0 10/13/16 00:00 97.9 88 22 98/57 99 Nasal Cannula 5.0 10/13/16 00:00 86 10/12/16 20:00 89 10/12/16 20:00 97.7 90 20 90/60 100 Nasal Cannula 5.0 Intake and Output 10/12/16 10/13/16 19:00 07:00 Intake Total 738 ml 100 ml Output Total 400 ml 350 ml Balance 338 ml -250 ml Intake Oral 638 ml 100 ml IV Total 100 ml Output Urine Total 400 ml 350 ml # Bowel Movements 2 6 Laboratory Tests 10/13/16 04:00: White Blood Count 3.6L, Red Blood Count 2.37L, Hemoglobin 8.0L, Hematocrit 24.9L , Mean Corpuscular Volume 105H, Mean Corpuscular Hemoglobin 33.8H, Mean Corpuscular Hemoglobin Concent 32.2, Red Cell Distribution Width 18.9H, Platelet Count 44L, Mean Platelet Volume 7.3, Neutrophils (%) (Auto) , Lymphocytes (%) (Auto) , Monocytes (%) (Auto) , Eosinophils (%) (Auto) , Basophils (%) (Auto) , Differential Total Cells Counted 100, Neutrophils % ( Manual) 74, Lymphocytes % (Manual) 14L, Monocytes % (Manual) 6, Eosinophils % ( Manual) 5H, Basophils % (Manual) 0, Band Neutrophils 1, Platelet Estimate DecreasedL, Platelet Morphology Normal, Hypochromasia 1+, Anisocytosis 1+, Macrocytosis 1+, Prothrombin Time 19.2H, Prothromb Time International Ratio 1.9H , Sodium Level 133L, Potassium Level 4.7, Chloride Level 98, Carbon Dioxide Level 20, Anion Gap 15, Blood Urea Nitrogen 42H, Creatinine 2.0H, Estimat Glomerular Filtration Rate 40.8, Glucose Level 105, Calcium Level 8.2L, Total Bilirubin 2.2H, Direct Bilirubin 1.3H, Aspartate Amino Transf (AST/SGOT) 81H, Alanine Aminotransferase (ALT/SGPT) 29, Alkaline Phosphatase 169H, Total Protein 5.9L, Albumin 1.8L, Globulin 4.1, Albumin/Globulin Ratio 0.4L, Alpha Fetoprotein [Pending] Height (Feet): 5 Height (Inches): 9.00 Weight (Pounds): 160 General Appearance: no apparent distress EENT: PERRL/EOMI Neck: supple Cardiovascular: normal rate Respiratory/Chest: lungs clear Abdomen: distended, other - diffuse ascitis Extremities: swelling Edema: 3+ Leg (R), 3+ Pedal (L), 3+ Pedal (R), 3+ Generalized Neurologic: disoriented, other - demented at base line Shanita Oden MD October 13, 2016 19:32
[2016-10-13] MEDS: Milk of Magnesia 30ml Ud ORAL SCH ×2 (20:28→21:00)
[2016-10-13] MEDS: OLANZapine 2.5mg tab ORAL SCH ×2 (20:29→21:00)
--- NOTE | 2016-10-13 21:32 | Cardiology Progress Note ---
Assessment/Plan Assessment/Plan 1. Bilateral lower extremity edema, due to hypoalbuminemia, due to liver cirrhosis, not on any diuretics due to EDITH. LVEF at 65% 2. Hx of junctional rhythm, responded to dopamine gtt, now in sinus rhythm. 3. History of hypertension, now hypotensive on midodrine. May consider increasing dose of midodrine if persistent. Subjective Subjective Sinus rhythm at 95. No cardiac events. Sitting at the edge of the bed. Appears confused. Objective Last 24 Hour Vital Signs Date Time Temp Pulse Resp B/P Pulse Ox O2 Delivery O2 Flow Rate FiO2 10/13/16 18:27 97.1 92 20 130/79 100 Nasal Cannula 4.0 10/13/16 12:00 90 10/13/16 12:00 97.6 88 20 114/63 100 Nasal Cannula 4.0 10/13/16 08:52 87 10/13/16 08:00 97.4 86 18 108/47 100 Nasal Cannula 4.0 10/13/16 07:45 Nasal Cannula 2.0 28 10/13/16 07:44 94 18 Nasal Cannula 2.0 10/13/16 07:44 100 Nasal Cannula 2.0 10/13/16 06:02 101/56 10/13/16 04:00 91 10/13/16 04:00 97.7 94 20 85/52 100 Nasal Cannula 2.0 10/13/16 03:58 91 18 Nasal Cannula 2.0 10/13/16 00:00 97.9 88 22 98/57 99 Nasal Cannula 5.0 10/13/16 00:00 86 Intake and Output 10/12/16 10/13/16 19:00 07:00 Intake Total 738 ml 100 ml Output Total 400 ml 350 ml Balance 338 ml -250 ml Intake Oral 638 ml 100 ml IV Total 100 ml Output Urine Total 400 ml 350 ml # Bowel Movements 2 6 2D Echo: LVEF 65%, Mild LVH, Grade I LVDD, Mod MR, RVSP 29 mmHg Laboratory Tests Test 10/13/16 04:00 White Blood Count 3.6 K/UL (4.8-10.8) L Red Blood Count 2.37 M/UL (4.70-6.10) L Hemoglobin 8.0 G/DL (14.2-18.0) L Hematocrit 24.9 % (42.0-52.0) L Mean Corpuscular Volume 105 FL (80-99) H Mean Corpuscular Hemoglobin 33.8 PG (27.0-31.0) H Mean Corpuscular Hemoglobin Concent 32.2 G/DL (32.0-36.0) Red Cell Distribution Width 18.9 % (11.6-14.8) H Platelet Count 44 K/UL (150-450) L Mean Platelet Volume 7.3 FL (6.5-10.1) Neutrophils (%) (Auto) % (45.0-75.0) Lymphocytes (%) (Auto) % (20.0-45.0) Monocytes (%) (Auto) % (1.0-10.0) Eosinophils (%) (Auto) % (0.0-3.0) Basophils (%) (Auto) % (0.0-2.0) Differential Total Cells Counted 100 Neutrophils % (Manual) 74 % (45-75) Lymphocytes % (Manual) 14 % (20-45) L Monocytes % (Manual) 6 % (1-10) Eosinophils % (Manual) 5 % (0-3) H Basophils % (Manual) 0 % (0-2) Band Neutrophils 1 % (0-8) Platelet Estimate Decreased L Platelet Morphology Normal Hypochromasia 1+ Anisocytosis 1+ Macrocytosis 1+ Prothrombin Time 19.2 SEC (9.30-11.50) H Prothromb Time International Ratio 1.9 (0.9-1.1) H Sodium Level 133 mEQ/L (135-145) L Potassium Level 4.7 mEQ/L (3.4-4.9) Chloride Level 98 mEQ/L (98-107) Carbon Dioxide Level 20 mEQ/L (20-30) Anion Gap 15 (5-15) Blood Urea Nitrogen 42 mg/dL (7-23) H Creatinine 2.0 mg/dL (0.7-1.2) H Estimat Glomerular Filtration Rate 40.8 mL/min (>60) Glucose Level 105 mg/dL (74-106) Calcium Level 8.2 mg/dL (8.6-10.2) L Total Bilirubin 2.2 mg/dL (0.0-1.2) H Direct Bilirubin 1.3 mg/dL (0.1-0.3) H Aspartate Amino Transf (AST/SGOT) 81 U/L (5-40) H Alanine Aminotransferase (ALT/SGPT) 29 U/L (3-41) Alkaline Phosphatase 169 U/L (40-129) H Total Protein 5.9 g/dL (6.6-8.7) L Albumin 1.8 g/dL (3.5-5.2) L Globulin 4.1 g/dL Albumin/Globulin Ratio 0.4 (1.0-2.7) L Alpha Fetoprotein Pending Objective GENERAL: The patient is a very unfortunate 66-year-old gentleman, alert and awake, in no apparent respiratory distress. HEENT: Atraumatic and normocephalic. Anicteric. Pupils are equal, round, and reactive to light and accommodation. Extraocular muscles intact. NECK: JVP is 5 cm, but no carotid bruit. Carotid upstrokes 2+ bilaterally. CARDIOVASCULAR: Normal S1 and S2. Regular rate and rhythm. A 2/6 mid systolic murmur left sternal border. PMI is at fourth intercostal space in the midclavicular line. LUNGS: Diminished breath sounds at both bases. ABDOMEN: Distended with ascites. Positive shifting dullness. EXTREMITIES: There is 3+ edema bilaterally. ASHLEY URIBE October 13, 2016 21:32
[2016-10-14 03:46] VITALS: BP 108/75
[2016-10-14 06:11] LABS: CALCIUM 8.1 mg/dL (8.6-10.2); CREATININE 2.3 mg/dL (0.7-1.2); GLOMERULAR FILTRATION RATE 34.8 mL/min (>60); POTASSIUM 4.5 mEQ/L (3.4-4.9)
[2016-10-14] MEDS: Tamsulosin 0.4mg cap ORAL SCH ×2 (09:00→18:00)
[2016-10-14] MEDS: Multivitamin w/Minerals tab ORAL SCH (09:00)
[2016-10-14] MEDS: Dyna-Hex 2% Top Sol 8oz TOPIC SCH (09:00)
[2016-10-14] MEDS: Zinc Sulfate 220mg cap ORAL SCH (09:00)
[2016-10-14] MEDS: Docusate 100mg cap ORAL SCH ×2 (09:00→18:00)
[2016-10-14] MEDS: Lactulose 20gm/30ml UDC ORAL SCH ×2 (09:00→18:00)
[2016-10-14] MEDS: Rifaximin 550mg tab ORAL SCH ×2 (09:00→18:00)
[2016-10-14] MEDS: Midodrine 10mg tab ORAL SCH ×3 (09:00→18:00)
[2016-10-14] MEDS: Fluconazole 100mg tab ORAL SCH (09:00)
--- NOTE | 2016-10-14 10:15 | General Progress Note ---
Assessment/Plan Status: unchanged Assessment/Plan 1. Abdominal pain secondary to recurrent Ascites expansion, infection!? 2. Anasarca, multifactorial 3. s/p Status post mechanical fall. 2. S/P Left periprosthetic femoral fracture and second surgery in hospital 3. Alcoholic liver cirrhosis. 4. Elevated transaminase. 5. 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 6. Elevated tumor markers (CEA, AFP/alpha-fetoprotein). 7. Chronic hepatic encephalopathy. 8. Hypertension. 9. Dementia. 10. Psychosis. 11. History of hemiarthroplasty, left hip, recent. 12. Hepatitis C. 13. History of alcohol abuse. 14. Acute on chronic Anemia 15. Thrombocytopenia, secondary to alcohol abuse. 16. HypoNatremia Plan: Nephro GI Notes are reviewed Poor Prognosis Discussed the care with the sister; ( Reported that she is his DPOA- needs verification). She requested Full code POLST is filled out, Medically stable for outpatient followup patient is Not Medically capable to make decisions Case discussed with Test Engineering Manager. Subjective ROS Limited/Unobtainable: Yes Allergies: Coded Allergies: No Known Allergies (Unverified , 10/06/16) Objective Last 24 Hour Vital Signs Date Time Temp Pulse Resp B/P Pulse Ox O2 Delivery O2 Flow Rate FiO2 10/14/16 09:22 84 18 Nasal Cannula 2.0 10/14/16 09:21 Nasal Cannula 2.0 28 10/14/16 09:21 99 Nasal Cannula 2.0 28 10/14/16 08:00 82 10/14/16 04:20 85 10/14/16 03:46 98.7 92 21 108/75 98 Nasal Cannula 4.0 10/14/16 00:11 79 10/13/16 23:49 97.1 86 20 101/65 Nasal Cannula 4.0 10/13/16 19:41 74 10/13/16 19:41 74 10/13/16 19:00 99 Nasal Cannula 2.0 10/13/16 19:00 92 18 Nasal Cannula 2.0 10/13/16 19:00 Nasal Cannula 2.0 28 10/13/16 18:27 97.1 92 20 130/79 100 Nasal Cannula 4.0 10/13/16 12:00 90 10/13/16 12:00 97.6 88 20 114/63 100 Nasal Cannula 4.0 Intake and Output 10/13/16 10/14/16 19:00 07:00 Intake Total 690 ml 50 ml Output Total 470 ml 400 ml Balance 220 ml -350 ml Intake Oral 690 ml 50 ml Output Urine Total 470 ml 400 ml Laboratory Tests 10/14/16 05:00: Sodium Level 132L, Potassium Level 4.5, Chloride Level 97L, Carbon Dioxide Level 21, Anion Gap 14, Blood Urea Nitrogen 44H, Creatinine 2.3H, Estimat Glomerular Filtration Rate 34.8, Glucose Level 112H, Calcium Level 8.1L Height (Feet): 5 Height (Inches): 9.00 Weight (Pounds): 160 General Appearance: no apparent distress EENT: PERRL/EOMI Neck: supple Cardiovascular: normal rate Respiratory/Chest: lungs clear Abdomen: other - Distended. Sever Ascitis, Edema: 3+ Leg (R), 3+ Pedal (L), 3+ Pedal (R), 3+ Generalized Neurologic: disoriented, other - AOx2, demented at baseline Shanita Oden MD October 14, 2016 10:15
--- NOTE | 2016-10-14 11:05 | Pulmonology Progress Note ---
Assessment/Plan Problems: (1) Acute hepatic encephalopathy (2) Anasarca (3) Coagulopathy (4) Thrombocytopenia (5) Elevated CEA (6) hep c (7) End-stage liver disease Assessment/Plan start lasix drip pr refusing paracentesis needs to be "DNR" family meeting about plan of care. Subjective ROS Limited/Unobtainable: No Interval Events: pt refusing all procedures Allergies: Coded Allergies: No Known Allergies (Unverified , 10/06/16) Objective Last 24 Hour Vital Signs Date Time Temp Pulse Resp B/P Pulse Ox O2 Delivery O2 Flow Rate FiO2 10/14/16 09:22 84 18 Nasal Cannula 2.0 10/14/16 09:21 Nasal Cannula 2.0 28 10/14/16 09:21 99 Nasal Cannula 2.0 28 10/14/16 08:00 82 10/14/16 04:20 85 10/14/16 03:46 98.7 92 21 108/75 98 Nasal Cannula 4.0 10/14/16 00:11 79 10/13/16 23:49 97.1 86 20 101/65 Nasal Cannula 4.0 10/13/16 19:41 74 10/13/16 19:41 74 10/13/16 19:00 99 Nasal Cannula 2.0 10/13/16 19:00 92 18 Nasal Cannula 2.0 10/13/16 19:00 Nasal Cannula 2.0 28 10/13/16 18:27 97.1 92 20 130/79 100 Nasal Cannula 4.0 10/13/16 12:00 90 10/13/16 12:00 97.6 88 20 114/63 100 Nasal Cannula 4.0 Intake and Output 10/13/16 10/14/16 19:00 07:00 Intake Total 690 ml 50 ml Output Total 470 ml 400 ml Balance 220 ml -350 ml Intake Oral 690 ml 50 ml Output Urine Total 470 ml 400 ml General Appearance: WD/WN HEENT: normocephalic, atraumatic Respiratory/Chest: chest wall non-tender, lungs clear Cardiovascular: normal peripheral pulses, normal rate Abdomen: normal bowel sounds, soft, non tender Genitourinary: normal external genitalia Extremities: no cyanosis Skin: no rash, no lesions Neurologic/Psychiatric: packaging clerk II-XII grossly normal, no motor/sensory deficits Lymphatic: no neck adenopathy Laboratory Tests 10/14/16 05:00: Sodium Level 132L, Potassium Level 4.5, Chloride Level 97L, Carbon Dioxide Level 21, Anion Gap 14, Blood Urea Nitrogen 44H, Creatinine 2.3H, Estimat Glomerular Filtration Rate 34.8, Glucose Level 112H, Calcium Level 8.1L Current Medications Medications (Trade) Dose Ordered Sig/Carolynn Route PRN Reason Start Time Stop Time Status Last Admin Dose Admin Acetaminophen (Tylenol) 650 mg Q4H PRN ORAL For Pain 1-3 10/11/16 16:45 11/10/16 16:44 Acetaminophen/ Hydrocodone Bitart ([place] 5/325) 1 tab Q4H PRN ORAL For Pain 4-10 10/11/16 16:45 10/18/16 16:44 Albuterol/ Ipratropium 3 ml 3 ml Q4H PRN HHN Shortness of Breath 10/12/16 08:45 10/17/16 08:44 Bisacodyl (Dulcolax) 10 mg DAILYPRN PRN RECTAL Constipation 10/11/16 20:45 11/10/16 20:44 Chlorhexidine Gluconate (Tania-Hex 2%) 1 applic DAILY TOPIC 10/12/16 09:00 11/11/16 08:59 10/13/16 09:19 Docusate Sodium (Colace) 100 mg TWICE A DAY ORAL 10/11/16 18:00 11/10/16 17:59 10/13/16 17:44 Ergocalciferol (Drisdol) 50,000 intlu MoTh ORAL 10/14/16 21:00 11/13/16 20:59 Finasteride (Proscar) 5 mg DAILY ORAL 10/12/16 09:00 11/11/16 08:59 10/13/16 09:18 Fluconazole (Diflucan) 100 mg DAILY ORAL 10/12/16 09:00 10/19/16 08:59 10/13/16 09:18 Furosemide/ Dextrose (Lasix/D5W) 110 ml @ 11 mls/hr Q10H IV 10/14/16 12:00 11/13/16 11:59 Lactulose (Cephulac) 10 gm BID ORAL 10/11/16 18:00 11/10/16 17:59 10/12/16 17:26 Midodrine (Pro-Amatine) 10 mg THREE TIMES A DAY ORAL 10/11/16 18:00 11/10/16 17:59 10/13/16 17:44 Olanzapine (ZyPREXA) 2.5 mg BEDTIME ORAL 10/11/16 21:00 11/10/16 20:59 10/12/16 21:49 Pantoprazole (Protonix) 40 mg EVERY 12 HOURS ORAL 10/11/16 21:00 11/10/16 20:59 10/13/16 09:18 Rifaximin (Xifaxan) 550 mg TWICE A DAY ORAL 10/11/16 18:00 10/18/16 17:59 10/13/16 17:44 Tamsulosin HCl (Flomax) 0.4 mg BID ORAL 10/11/16 18:00 11/10/16 17:59 10/13/16 17:44 CIRA KOCH October 14, 2016 11:05
--- NOTE | 2016-10-14 11:12 | Infectious Diseases Prog Note ---
Assessment/Plan Assessment/Plan A: ? yeast UTI , most likely colonizer No evid of sepsis at this time - afebrile without leukocytosis SP recent Paracentesis w no evidence of SPB Hepatitis C antibody + HIV : neg Depression Hx of recent Hypotension due to bradycardia Dementia Alcohol abuse Anemia History of left hip surgery 5 months ago - No evidence of surgical site infection at this time CT of the pelvis, left hip : hemiarthroplasty, fracture of intertrochanteric region of the femur, soft tissue swelling, hematoma, and ascites NKDA Full Code PLAN: DC fluconazole d# 4 and Monitor the patient off of antibiotics Monitor CBC Monitor BMP Monitor cultures urine Subjective Allergies: Coded Allergies: No Known Allergies (Unverified , 10/06/16) Subjective pt refusing meds Objective Vital Signs Last 24 Hour Vital Signs Date Time Temp Pulse Resp B/P Pulse Ox O2 Delivery O2 Flow Rate FiO2 10/14/16 09:22 84 18 Nasal Cannula 2.0 10/14/16 09:21 Nasal Cannula 2.0 28 10/14/16 09:21 99 Nasal Cannula 2.0 28 10/14/16 08:00 82 10/14/16 04:20 85 10/14/16 03:46 98.7 92 21 108/75 98 Nasal Cannula 4.0 10/14/16 00:11 79 10/13/16 23:49 97.1 86 20 101/65 Nasal Cannula 4.0 10/13/16 19:41 74 10/13/16 19:41 74 10/13/16 19:00 99 Nasal Cannula 2.0 10/13/16 19:00 92 18 Nasal Cannula 2.0 10/13/16 19:00 Nasal Cannula 2.0 28 10/13/16 18:27 97.1 92 20 130/79 100 Nasal Cannula 4.0 10/13/16 12:00 90 10/13/16 12:00 97.6 88 20 114/63 100 Nasal Cannula 4.0 Height (Feet): 5 Height (Inches): 9.00 Weight (Pounds): 160 HEENT: PERRL Cardiovascular: regular rhythm Abdomen: no organomegaly Laboratory Tests Test 10/14/16 05:00 Sodium Level 132 mEQ/L (135-145) L Potassium Level 4.5 mEQ/L (3.4-4.9) Chloride Level 97 mEQ/L (98-107) L Carbon Dioxide Level 21 mEQ/L (20-30) Anion Gap 14 (5-15) Blood Urea Nitrogen 44 mg/dL (7-23) H Creatinine 2.3 mg/dL (0.7-1.2) H Estimat Glomerular Filtration Rate 34.8 mL/min (>60) Glucose Level 112 mg/dL (74-106) H Calcium Level 8.1 mg/dL (8.6-10.2) L Current Medications Medications (Trade) Dose Ordered Sig/Carolynn Route PRN Reason Start Time Stop Time Status Last Admin Dose Admin Acetaminophen (Tylenol) 650 mg Q4H PRN ORAL For Pain 1-3 10/11/16 16:45 11/10/16 16:44 Acetaminophen/ Hydrocodone Bitart ([place] 5/325) 1 tab Q4H PRN ORAL For Pain 4-10 10/11/16 16:45 10/18/16 16:44 Albuterol/ Ipratropium 3 ml 3 ml Q4H PRN HHN Shortness of Breath 10/12/16 08:45 10/17/16 08:44 Bisacodyl (Dulcolax) 10 mg DAILYPRN PRN RECTAL Constipation 10/11/16 20:45 11/10/16 20:44 Chlorhexidine Gluconate (Tania-Hex 2%) 1 applic DAILY TOPIC 10/12/16 09:00 11/11/16 08:59 10/13/16 09:19 Docusate Sodium (Colace) 100 mg TWICE A DAY ORAL 10/11/16 18:00 11/10/16 17:59 10/13/16 17:44 Ergocalciferol (Drisdol) 50,000 intlu MoTh ORAL 10/14/16 21:00 11/13/16 20:59 Finasteride (Proscar) 5 mg DAILY ORAL 10/12/16 09:00 11/11/16 08:59 10/13/16 09:18 Fluconazole (Diflucan) 100 mg DAILY ORAL 10/12/16 09:00 10/19/16 08:59 10/13/16 09:18 Furosemide/ Dextrose (Lasix/D5W) 110 ml @ 11 mls/hr Q10H IV 10/14/16 12:00 11/13/16 11:59 Lactulose (Cephulac) 10 gm BID ORAL 10/11/16 18:00 11/10/16 17:59 10/12/16 17:26 Midodrine (Pro-Amatine) 10 mg THREE TIMES A DAY ORAL 10/11/16 18:00 11/10/16 17:59 10/13/16 17:44 Olanzapine (ZyPREXA) 2.5 mg BEDTIME ORAL 10/11/16 21:00 11/10/16 20:59 10/12/16 21:49 Pantoprazole (Protonix) 40 mg EVERY 12 HOURS ORAL 10/11/16 21:00 11/10/16 20:59 10/13/16 09:18 Rifaximin (Xifaxan) 550 mg TWICE A DAY ORAL 10/11/16 18:00 10/18/16 17:59 10/13/16 17:44 Tamsulosin HCl (Flomax) 0.4 mg BID ORAL 10/11/16 18:00 11/10/16 17:59 10/13/16 17:44 CHAY DOMINGO M.D. October 14, 2016 11:12
--- NOTE | 2016-10-14 11:17 | General Progress Note ---
Assessment/Plan Status: unchanged, deteriorating Status Narrative Cr higher Assessment/Plan Acute renal failure- Severe Anemia h/o HyperKalemia- resolved Proteinuria UTI High INR others: 1. s/p Status post mechanical fall. 2. Left periprosthetic femoral fracture. 3. Alcoholic liver cirrhosis. 4. s/p Elevated transaminase. 5. 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 6. Elevated tumor markers (CEA, AFP/alpha-fetoprotein). 7. Acute hepatic encephalopathy. 8. Hypertension. 9. Dementia. 10. Psychosis. 11. History of hemiarthroplasty, left hip, recent. 12. Hepatitis C. 13. History of alcohol abuse. 14. Anemia of chronic disease. 15. Thrombocytopenia, secondary to alcohol abuse. Plan; remains full code- May lead to dialysis ! Transfuse as needed Midodrine for low BP hold mind altering meds- antibiotics - avoid nephrotoxics urine studies monitor renal parameters Tap Ascitis PRN consider comfort care- prognosis dismal- per orders Subjective ROS Limited/Unobtainable: No Constitutional: Reports: malaise, weakness Allergies: Coded Allergies: No Known Allergies (Unverified , 10/06/16) Objective Last 24 Hour Vital Signs Date Time Temp Pulse Resp B/P Pulse Ox O2 Delivery O2 Flow Rate FiO2 10/14/16 09:22 84 18 Nasal Cannula 2.0 10/14/16 09:21 Nasal Cannula 2.0 28 10/14/16 09:21 99 Nasal Cannula 2.0 28 10/14/16 08:00 82 10/14/16 04:20 85 10/14/16 03:46 98.7 92 21 108/75 98 Nasal Cannula 4.0 10/14/16 00:11 79 10/13/16 23:49 97.1 86 20 101/65 Nasal Cannula 4.0 10/13/16 19:41 74 10/13/16 19:41 74 10/13/16 19:00 99 Nasal Cannula 2.0 10/13/16 19:00 92 18 Nasal Cannula 2.0 10/13/16 19:00 Nasal Cannula 2.0 28 10/13/16 18:27 97.1 92 20 130/79 100 Nasal Cannula 4.0 10/13/16 12:00 90 10/13/16 12:00 97.6 88 20 114/63 100 Nasal Cannula 4.0 Intake and Output 10/13/16 10/14/16 19:00 07:00 Intake Total 690 ml 50 ml Output Total 470 ml 400 ml Balance 220 ml -350 ml Intake Oral 690 ml 50 ml Output Urine Total 470 ml 400 ml Laboratory Tests 10/14/16 05:00: Sodium Level 132L, Potassium Level 4.5, Chloride Level 97L, Carbon Dioxide Level 21, Anion Gap 14, Blood Urea Nitrogen 44H, Creatinine 2.3H, Estimat Glomerular Filtration Rate 34.8, Glucose Level 112H, Calcium Level 8.1L Height (Feet): 5 Height (Inches): 9.00 Weight (Pounds): 160 General Appearance: lethargic, confused, mild distress Respiratory/Chest: decreased breath sounds Abdomen: distended Edema: 2+ Arm (L), 2+ Arm (R), 2+ Leg (L), 2+ Leg (R), 2+ Pedal (L), 2+ Pedal ( R), 2+ Generalized Objective other PE not changed PRINCESS PALACIO October 14, 2016 11:17
--- NOTE | 2016-10-14 12:32 | GI Progress Note ---
Assessment/Plan Problems: (1) Elevated CEA ICD Codes: R97.0 - Elevated carcinoembryonic antigen [CEA] SNOMED: 92529893, 661972335 (2) Thrombocytopenia ICD Codes: D69.6 - Thrombocytopenia, unspecified SNOMED: 688073708 (3) Ascites ICD Codes: R18.8 - Other ascites SNOMED: 283427392 Qualifiers: Qualified Codes: R18.8 - Other ascites (4) Anemia ICD Codes: D64.9 - Anemia, unspecified SNOMED: 621528461 (5) End-stage liver disease ICD Codes: K72.90 - Hepatic failure, unspecified without coma SNOMED: 385557331 Status: unchanged Status Narrative Discussed with Dr. Bojorquez. Assessment/Plan S/P EGD - FINDINGS: 1. Severe portal hypertensive gastropathy. Status post biopsy. >> unremarkable 2. Distal esophageal varices grade I/II without any stigmata. Hep C positive elevated CEA >> 9.6 r/o SBP >> negative on last admission paracentesis today normal ammonia >> cont lactulose + Xifaxan monitor H&H, transfuse prn OB stool uncollected ppi dc propranolol prn paracentesis AFP fu labs PT evaluation poor prognosis Subjective Subjective refusing care, wants to see his own MD. Objective Last 24 Hour Vital Signs Date Time Temp Pulse Resp B/P Pulse Ox O2 Delivery O2 Flow Rate FiO2 10/14/16 11:44 82 10/14/16 09:22 84 18 Nasal Cannula 2.0 10/14/16 09:21 Nasal Cannula 2.0 28 10/14/16 09:21 99 Nasal Cannula 2.0 28 10/14/16 08:00 82 10/14/16 04:20 85 10/14/16 03:46 98.7 92 21 108/75 98 Nasal Cannula 4.0 10/14/16 00:11 79 10/13/16 23:49 97.1 86 20 101/65 Nasal Cannula 4.0 10/13/16 19:41 74 10/13/16 19:41 74 10/13/16 19:00 99 Nasal Cannula 2.0 10/13/16 19:00 92 18 Nasal Cannula 2.0 10/13/16 19:00 Nasal Cannula 2.0 28 10/13/16 18:27 97.1 92 20 130/79 100 Nasal Cannula 4.0 Intake and Output 10/13/16 10/14/16 19:00 07:00 Intake Total 690 ml 50 ml Output Total 470 ml 400 ml Balance 220 ml -350 ml Intake Oral 690 ml 50 ml Output Urine Total 470 ml 400 ml Laboratory Tests Test 10/14/16 05:00 Sodium Level 132 mEQ/L (135-145) L Potassium Level 4.5 mEQ/L (3.4-4.9) Chloride Level 97 mEQ/L (98-107) L Carbon Dioxide Level 21 mEQ/L (20-30) Anion Gap 14 (5-15) Blood Urea Nitrogen 44 mg/dL (7-23) H Creatinine 2.3 mg/dL (0.7-1.2) H Estimat Glomerular Filtration Rate 34.8 mL/min (>60) Glucose Level 112 mg/dL (74-106) H Calcium Level 8.1 mg/dL (8.6-10.2) L Height (Feet): 5 Height (Inches): 9.00 Weight (Pounds): 160 General Appearance: no apparent distress, alert Cardiovascular: normal rate Respiratory/Chest: other - 2LNC Abdominal Exam: distended, ascites Bren Palacios N.P. October 14, 2016 12:32
[2016-10-14 15:54] VITALS: BP 106/59
--- NOTE | 2016-10-14 19:12 | Cardiology Report ---
APPROVED REPORT EKG Measurement Heart [id number] Sinus rhythm with marked sinus arrhythmia with 1st degree AV block Nonspecific T wave abnormality Abnormal ECG
[2016-10-14 20:00] VITALS: BP 120/80
[2016-10-14] MEDS: Vitamin D 50,000 units cap ORAL SCH (21:00)
[2016-10-14] MEDS: OLANZapine 2.5mg tab ORAL SCH (21:00)
--- NOTE | 2016-10-14 22:11 | Cardiology Progress Note ---
Assessment/Plan Assessment/Plan 1. Bilateral lower extremity edema, diuretics on hold marcelino to EDITH. LVEF at 65% 2. Hx of junctional rhythm. 3. Hypotension due to low oncotic pressure, continue midodrine. Subjective Subjective Sinus rhythm at 98. No cardiac events. Objective Last 24 Hour Vital Signs Date Time Temp Pulse Resp B/P Pulse Ox O2 Delivery O2 Flow Rate FiO2 10/14/16 20:00 97.4 98 20 120/80 100 Room Air 10/14/16 16:02 82 10/14/16 15:54 97.1 98 20 106/59 100 Nasal Cannula 4.0 10/14/16 11:44 82 10/14/16 09:22 84 18 Nasal Cannula 2.0 10/14/16 09:21 Nasal Cannula 2.0 28 10/14/16 09:21 99 Nasal Cannula 2.0 28 10/14/16 08:00 82 10/14/16 04:20 85 10/14/16 03:46 98.7 92 21 108/75 98 Nasal Cannula 4.0 10/14/16 00:11 79 10/13/16 23:49 97.1 86 20 101/65 Nasal Cannula 4.0 Intake and Output 10/13/16 10/14/16 19:00 07:00 Intake Total 690 ml 50 ml Output Total 470 ml 400 ml Balance 220 ml -350 ml Intake Oral 690 ml 50 ml Output Urine Total 470 ml 400 ml 2D Echo: LVEF 65%, Mild LVH, Grade I LVDD, Mod MR, RVSP 29 mmHg Laboratory Tests Test 10/14/16 05:00 10/14/16 17:00 Sodium Level 132 mEQ/L (135-145) L Potassium Level 4.5 mEQ/L (3.4-4.9) Chloride Level 97 mEQ/L (98-107) L Carbon Dioxide Level 21 mEQ/L (20-30) Anion Gap 14 (5-15) Blood Urea Nitrogen 44 mg/dL (7-23) H Creatinine 2.3 mg/dL (0.7-1.2) H Estimat Glomerular Filtration Rate 34.8 mL/min (>60) Glucose Level 112 mg/dL (74-106) H Calcium Level 8.1 mg/dL (8.6-10.2) L Stool Occult Blood Pending Objective HEENT: Atraumatic and normocephalic. Anicteric. Pupils are equal, round, and reactive to light and accommodation. Extraocular muscles intact. NECK: JVP is 5 cm, but no carotid bruit. Carotid upstrokes 2+ bilaterally. CARDIOVASCULAR: Normal S1 and S2. Regular rate and rhythm. A 2/6 mid systolic murmur left sternal border. PMI is at fourth intercostal space in the midclavicular line. LUNGS: Diminished breath sounds at both bases. ABDOMEN: Distended with ascites. Positive shifting dullness. EXTREMITIES: There is 3+ edema bilaterally. ASHLEY URIBE October 14, 2016 22:11
[2016-10-15] VITALS: BP 134/95
[2016-10-15 04:00] VITALS: BP 144/90
[2016-10-15 05:30] LABS: MEAN CORPUSCULAR HEMOGLOBIN 32.8 PG (27.0-31.0); MEAN CORPUSCULAR HGB CONC 32.1 G/DL (32.0-36.0); MEAN CORPUSCULAR VOLUME 102 FL (80-99); MEAN PLATELET VOLUME 6.1 FL (6.5-10.1); PLATELET COUNT 50 K/UL (150-450); RED BLOOD COUNT 2.67 M/UL (4.70-6.10); WHITE BLOOD COUNT 6.6 K/UL (4.8-10.8)
[2016-10-15 05:47] LABS: INR 1.8 (0.9-1.1); PROTHROMBIN TIME 18.5 SEC (9.30-11.50)
[2016-10-15 06:01] LABS: MAGNESIUM 1.6 mg/dL (1.7-2.5); PHOSPHORUS 3.3 mg/dL (2.5-4.8)
[2016-10-15 06:11] LABS: CRP QUANT 1.9 mg/dL (< 0.5); URIC ACID 10.9 mg/dL (3.0-7.5)
[2016-10-15 06:13] LABS: ALBUMIN/GLOBULIN RATIO 0.3 (1.0-2.7); CREATININE 2.1 mg/dL (0.7-1.2); GLOMERULAR FILTRATION RATE 38.7 mL/min (>60); POTASSIUM 4.2 mEQ/L (3.4-4.9); TOTAL PROTEIN 6.7 g/dL (6.6-8.7)
[2016-10-15 08:00] VITALS: BP 114/77
[2016-10-15 08:14] LABS: BILIRUBIN,DIRECT 1.2 mg/dL (0.1-0.3)
[2016-10-15] MEDS: Vitamin D 50,000 units cap ORAL SCH (08:27)
[2016-10-15] MEDS: Tamsulosin 0.4mg cap ORAL SCH ×2 (08:28→18:14)
[2016-10-15] MEDS: Midodrine 10mg tab ORAL SCH ×3 (08:30→18:14)
[2016-10-15] MEDS: Rifaximin 550mg tab ORAL SCH ×2 (08:30→18:14)
[2016-10-15] MEDS: Dyna-Hex 2% Top Sol 8oz TOPIC SCH (08:32)
[2016-10-15] MEDS: Lactulose 20gm/30ml UDC ORAL SCH ×2 (08:34→18:14)
[2016-10-15] MEDS: Docusate 100mg cap ORAL SCH ×2 (08:34→18:14)
--- NOTE | 2016-10-15 09:05 | General Progress Note ---
Assessment/Plan Status: unchanged Assessment/Plan 1. Abdominal pain secondary to recurrent Ascites expansion, infection!? 2. Anasarca, multifactorial 3. s/p Status post mechanical fall. 2. S/P Left periprosthetic femoral fracture and second surgery in hospital 3. Alcoholic liver cirrhosis. 4. Elevated transaminase. 5. 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 6. Elevated tumor markers (CEA, AFP/alpha-fetoprotein). 7. Chronic hepatic encephalopathy. 8. Hypertension. 9. Dementia. 10. Psychosis. 11. History of hemiarthroplasty, left hip, recent. 12. Hepatitis C. 13. History of alcohol abuse. 14. Acute on chronic Anemia 15. Thrombocytopenia, secondary to alcohol abuse. 16. HypoNatremia 17. GIB: based on positive OB 18. Refusal of care/treatment Plan: Nephro GI Notes are reviewed Poor Prognosis Discussed the care with the sister; ( Reported that she is his DPOA- needs verification). She requested Full code POLST is filled out, Continue Refusal of Medication/treatment Medically stable for outpatient followup Case discussed with [employer]. Subjective ROS Limited/Unobtainable: Yes Allergies: Coded Allergies: No Known Allergies (Unverified , 10/06/16) Objective Last 24 Hour Vital Signs Date Time Temp Pulse Resp B/P Pulse Ox O2 Delivery O2 Flow Rate FiO2 10/15/16 08:00 98.1 95 22 114/77 100 Nasal Cannula 2.0 10/15/16 07:51 78 10/15/16 04:05 97.3 10/15/16 04:00 97.7 98 20 144/90 99 Nasal Cannula 4.0 10/15/16 04:00 91 10/15/16 00:00 97 10/15/16 00:00 97.3 106 20 134/95 99 Room Air 10/14/16 20:00 108 10/14/16 20:00 97.4 98 20 120/80 100 Room Air 10/14/16 19:30 80 20 Nasal Cannula 2.0 28 10/14/16 19:30 99 Nasal Cannula 2.0 28 10/14/16 19:30 Nasal Cannula 2.0 28 10/14/16 16:02 82 10/14/16 15:54 97.1 98 20 106/59 100 Nasal Cannula 4.0 10/14/16 11:44 82 10/14/16 09:22 84 18 Nasal Cannula 2.0 10/14/16 09:21 Nasal Cannula 2.0 28 10/14/16 09:21 99 Nasal Cannula 2.0 28 Intake and Output 10/14/16 10/15/16 19:00 07:00 Intake Total 575 ml 99 ml Output Total 700 ml 800 ml Balance -125 ml -701 ml Intake Oral 520 ml IV Total 55 ml 99 ml Output Urine Total 700 ml 800 ml # Bowel Movements 1 1 Laboratory Tests 10/14/16 17:00: Stool Occult Blood Positive 10/15/16 04:30: White Blood Count 6.6, Red Blood Count 2.67L, Hemoglobin 8.7L, Hematocrit 27.3L , Mean Corpuscular Volume 102H, Mean Corpuscular Hemoglobin 32.8H, Mean Corpuscular Hemoglobin Concent 32.1, Red Cell Distribution Width 18.0H, Platelet Count 50L, Mean Platelet Volume 6.1L, Neutrophils (%) (Auto) , Lymphocytes (%) (Auto) , Monocytes (%) (Auto) , Eosinophils (%) (Auto) , Basophils (%) (Auto) , Neutrophils % (Manual) [Pending], Lymphocytes % (Manual) [Pending], Platelet Estimate [Pending], Platelet Morphology [Pending], Prothrombin Time 18.5H, Prothromb Time International Ratio 1.8H, Activated Partial Thromboplast Time 38H, Sodium Level 135, Potassium Level 4.2, Chloride Level 99, Carbon Dioxide Level 21, Anion Gap 15, Blood Urea Nitrogen 45H, Creatinine 2.1H, Estimat Glomerular Filtration Rate 38.7, Glucose Level 133H, Uric Acid 10.9H, Calcium Level 8.0L, Phosphorus Level 3.3, Magnesium Level 1.6L , Total Bilirubin 2.6H, Direct Bilirubin 1.2H, Gamma Glutamyl Transpeptidase 56 , Aspartate Amino Transf (AST/SGOT) 89H, Alanine Aminotransferase (ALT/SGPT) 33 , Alkaline Phosphatase 200H, C-Reactive Protein, Quantitative 1.9H, Pro-B-Type Natriuretic Peptide 514H, Total Protein 6.7, Albumin 1.8L, Globulin 4.9, Albumin /Globulin Ratio 0.3L Height (Feet): 5 Height (Inches): 9.00 Weight (Pounds): 160 General Appearance: no apparent distress EENT: PERRL/EOMI Neck: supple Cardiovascular: normal rate Respiratory/Chest: lungs clear Abdomen: distended, other - marked ascitis Edema: 3+ Leg (L), 3+ Leg (R), 3+ Pedal (L), 3+ Pedal (R) Neurologic: 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
--- NOTE | 2016-10-15 09:15 | Diagnostic Imaging Report ---
Indication: Abdominal distention, ascites Technique: Limited sonography of the peritoneal space in anticipation for paracentesis Comparison: 09/25/2016 Findings: Moderate amount of ascites fluid is demonstrated. However, paracentesis was not performed, per patient request Impression: Moderate ascites
[2016-10-15 10:33] LABS: BAND NEUTROPHILS % (MANUAL) 0 % (0-8); BASOPHILS % (MANUAL) 1 % (0-2); EOSINOPHILS % (MANUAL) 0 % (0-3); LYMPHOCYTES % (MANUAL) 10 % (20-45); NEUTROPHILS % (MANUAL) 81 % (45-75); PLATELET ESTIMATE DECREASED; PLATELET MORPHOLOGY NORMAL; TOTAL CELLS COUNTED 100
[2016-10-15 10:34] LABS: ANISOCYTOSIS 1+; HYPOCHROMASIA 1+; MACROCYTES 1+
--- NOTE | 2016-10-15 10:38 | General Progress Note ---
Assessment/Plan Status: unchanged Status Narrative Cr 2.1 from 2.3 Assessment/Plan Acute renal failure- Severe Anemia h/o HyperKalemia- resolved Proteinuria UTI High INR others: 1. s/p Status post mechanical fall. 2. Left periprosthetic femoral fracture. 3. Alcoholic liver cirrhosis. 4. s/p Elevated transaminase. 5. 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 6. Elevated tumor markers (CEA, AFP/alpha-fetoprotein). 7. Acute hepatic encephalopathy. 8. Hypertension. 9. Dementia. 10. Psychosis. 11. History of hemiarthroplasty, left hip, recent. 12. Hepatitis C. 13. History of alcohol abuse. 14. Anemia of chronic disease. 15. Thrombocytopenia, secondary to alcohol abuse. Plan; remains full code- May lead to dialysis ! Transfuse as needed Midodrine for low BP hold mind altering meds- antibiotics - avoid nephrotoxics urine studies monitor renal parameters Tap Ascitis PRN consider comfort care- prognosis dismal- per orders Subjective ROS Limited/Unobtainable: No Constitutional: Reports: malaise, weakness Allergies: Coded Allergies: No Known Allergies (Unverified , 10/06/16) Objective Last 24 Hour Vital Signs Date Time Temp Pulse Resp B/P Pulse Ox O2 Delivery O2 Flow Rate FiO2 10/15/16 08:00 98.1 95 22 114/77 100 Nasal Cannula 2.0 10/15/16 07:51 78 10/15/16 07:00 Nasal Cannula 3.0 32 10/15/16 07:00 95 20 Nasal Cannula 3.0 32 10/15/16 07:00 100 Nasal Cannula 3.0 32 10/15/16 04:05 97.3 10/15/16 04:00 97.7 98 20 144/90 99 Nasal Cannula 4.0 10/15/16 04:00 91 10/15/16 00:00 97 10/15/16 00:00 97.3 106 20 134/95 99 Room Air 10/14/16 20:00 108 10/14/16 20:00 97.4 98 20 120/80 100 Room Air 10/14/16 19:30 80 20 Nasal Cannula 2.0 28 10/14/16 19:30 99 Nasal Cannula 2.0 28 10/14/16 19:30 Nasal Cannula 2.0 28 10/14/16 16:02 82 10/14/16 15:54 97.1 98 20 106/59 100 Nasal Cannula 4.0 10/14/16 11:44 82 Intake and Output 10/14/16 10/15/16 19:00 07:00 Intake Total 575 ml 99 ml Output Total 700 ml 800 ml Balance -125 ml -701 ml Intake Oral 520 ml IV Total 55 ml 99 ml Output Urine Total 700 ml 800 ml # Bowel Movements 1 1 Laboratory Tests 10/14/16 17:00: Stool Occult Blood Positive 10/15/16 04:30: White Blood Count 6.6, Red Blood Count 2.67L, Hemoglobin 8.7L, Hematocrit 27.3L , Mean Corpuscular Volume 102H, Mean Corpuscular Hemoglobin 32.8H, Mean Corpuscular Hemoglobin Concent 32.1, Red Cell Distribution Width 18.0H, Platelet Count 50L, Mean Platelet Volume 6.1L, Neutrophils (%) (Auto) , Lymphocytes (%) (Auto) , Monocytes (%) (Auto) , Eosinophils (%) (Auto) , Basophils (%) (Auto) , Differential Total Cells Counted 100, Neutrophils % ( Manual) 81H, Lymphocytes % (Manual) 10L, Monocytes % (Manual) 8, Eosinophils % ( Manual) 0, Basophils % (Manual) 1, Band Neutrophils 0, Platelet Estimate DecreasedL, Platelet Morphology Normal, Hypochromasia 1+, Anisocytosis 1+, Macrocytosis 1+, Prothrombin Time 18.5H, Prothromb Time International Ratio 1.8H , Activated Partial Thromboplast Time 38H, Sodium Level 135, Potassium Level 4.2 , Chloride Level 99, Carbon Dioxide Level 21, Anion Gap 15, Blood Urea Nitrogen 45H, Creatinine 2.1H, Estimat Glomerular Filtration Rate 38.7, Glucose Level 133H, Uric Acid 10.9H, Calcium Level 8.0L, Phosphorus Level 3.3, Magnesium Level 1.6L, Total Bilirubin 2.6H, Direct Bilirubin 1.2H, Gamma Glutamyl Transpeptidase 56, Aspartate Amino Transf (AST/SGOT) 89H, Alanine Aminotransferase (ALT/SGPT) 33, Alkaline Phosphatase 200H, C-Reactive Protein, Quantitative 1.9H, Pro-B-Type Natriuretic Peptide 514H, Total Protein 6.7, Albumin 1.8L, Globulin 4.9, Albumin/Globulin Ratio 0.3L Height (Feet): 5 Height (Inches): 9.00 Weight (Pounds): 160 General Appearance: no apparent distress Cardiovascular: tachycardia Respiratory/Chest: decreased breath sounds Abdomen: distended Edema: 3+ Arm (L), 3+ Arm (R), 3+ Leg (L), 3+ Leg (R), 3+ Pedal (L), 3+ Pedal ( R), 3+ Generalized Objective other PE not changed PRINCESS PALACIO October 15, 2016 10:38
--- NOTE | 2016-10-15 10:47 | Infectious Diseases Prog Note ---
Assessment/Plan Assessment/Plan A: ? yeast UTI , most likely colonizer No evid of sepsis at this time - afebrile without leukocytosis SP recent Paracentesis w no evidence of SPB Hepatitis C antibody + HIV : neg Depression Hx of recent Hypotension due to bradycardia Dementia Alcohol abuse Anemia History of left hip surgery 5 months ago - No evidence of surgical site infection at this time CT of the pelvis, left hip : hemiarthroplasty, fracture of intertrochanteric region of the femur, soft tissue swelling, hematoma, and ascites NKDA Full Code PLAN: Monitor the patient off of antibiotics SP Fluconazole d# 4 Monitor CBC Monitor BMP Monitor cultures urine Subjective Constitutional: Denies: anorexia, chills, drenching sweats, fatigue, fever, no symptoms, other Allergies: Coded Allergies: No Known Allergies (Unverified , 10/06/16) Objective Vital Signs Last 24 Hour Vital Signs Date Time Temp Pulse Resp B/P Pulse Ox O2 Delivery O2 Flow Rate FiO2 10/15/16 08:00 98.1 95 22 114/77 100 Nasal Cannula 2.0 10/15/16 07:51 78 10/15/16 07:00 Nasal Cannula 3.0 32 10/15/16 07:00 95 20 Nasal Cannula 3.0 32 10/15/16 07:00 100 Nasal Cannula 3.0 32 10/15/16 04:05 97.3 10/15/16 04:00 97.7 98 20 144/90 99 Nasal Cannula 4.0 10/15/16 04:00 91 10/15/16 00:00 97 10/15/16 00:00 97.3 106 20 134/95 99 Room Air 10/14/16 20:00 108 10/14/16 20:00 97.4 98 20 120/80 100 Room Air 10/14/16 19:30 80 20 Nasal Cannula 2.0 28 10/14/16 19:30 99 Nasal Cannula 2.0 28 10/14/16 19:30 Nasal Cannula 2.0 28 10/14/16 16:02 82 10/14/16 15:54 97.1 98 20 106/59 100 Nasal Cannula 4.0 10/14/16 11:44 82 Height (Feet): 5 Height (Inches): 9.00 Weight (Pounds): 160 HEENT: mucous membranes moist Respiratory/Chest: normal breath sounds Cardiovascular: regular rhythm Abdomen: soft, non tender Laboratory Tests Test 10/14/16 17:00 10/15/16 04:30 Stool Occult Blood Positive (NEGATIVE) White Blood Count 6.6 K/UL (4.8-10.8) Red Blood Count 2.67 M/UL (4.70-6.10) L Hemoglobin 8.7 G/DL (14.2-18.0) L Hematocrit 27.3 % (42.0-52.0) L Mean Corpuscular Volume 102 FL (80-99) H Mean Corpuscular Hemoglobin 32.8 PG (27.0-31.0) H Mean Corpuscular Hemoglobin Concent 32.1 G/DL (32.0-36.0) Red Cell Distribution Width 18.0 % (11.6-14.8) H Platelet Count 50 K/UL (150-450) L Mean Platelet Volume 6.1 FL (6.5-10.1) L Neutrophils (%) (Auto) % (45.0-75.0) Lymphocytes (%) (Auto) % (20.0-45.0) Monocytes (%) (Auto) % (1.0-10.0) Eosinophils (%) (Auto) % (0.0-3.0) Basophils (%) (Auto) % (0.0-2.0) Differential Total Cells Counted 100 Neutrophils % (Manual) 81 % (45-75) H Lymphocytes % (Manual) 10 % (20-45) L Monocytes % (Manual) 8 % (1-10) Eosinophils % (Manual) 0 % (0-3) Basophils % (Manual) 1 % (0-2) Band Neutrophils 0 % (0-8) Platelet Estimate Decreased L Platelet Morphology Normal Hypochromasia 1+ Anisocytosis 1+ Macrocytosis 1+ Prothrombin Time 18.5 SEC (9.30-11.50) H Prothromb Time International Ratio 1.8 (0.9-1.1) H Activated Partial Thromboplast Time 38 SEC (23-33) H Sodium Level 135 mEQ/L (135-145) Potassium Level 4.2 mEQ/L (3.4-4.9) Chloride Level 99 mEQ/L (98-107) Carbon Dioxide Level 21 mEQ/L (20-30) Anion Gap 15 (5-15) Blood Urea Nitrogen 45 mg/dL (7-23) H Creatinine 2.1 mg/dL (0.7-1.2) H Estimat Glomerular Filtration Rate 38.7 mL/min (>60) Glucose Level 133 mg/dL (74-106) H Uric Acid 10.9 mg/dL (3.0-7.5) H Calcium Level 8.0 mg/dL (8.6-10.2) L Phosphorus Level 3.3 mg/dL (2.5-4.8) Magnesium Level 1.6 mg/dL (1.7-2.5) L Total Bilirubin 2.6 mg/dL (0.0-1.2) H Direct Bilirubin 1.2 mg/dL (0.1-0.3) H Gamma Glutamyl Transpeptidase 56 U/L (8-61) Aspartate Amino Transf (AST/SGOT) 89 U/L (5-40) H Alanine Aminotransferase (ALT/SGPT) 33 U/L (3-41) Alkaline Phosphatase 200 U/L (40-129) H C-Reactive Protein, Quantitative 1.9 mg/dL (< 0.5) H Pro-B-Type Natriuretic Peptide 514 pg/mL (0-125) H Total Protein 6.7 g/dL (6.6-8.7) Albumin 1.8 g/dL (3.5-5.2) L Globulin 4.9 g/dL Albumin/Globulin Ratio 0.3 (1.0-2.7) L Current Medications Medications (Trade) Dose Ordered Sig/Carolynn Route PRN Reason Start Time Stop Time Status Last Admin Dose Admin Acetaminophen (Tylenol) 650 mg Q4H PRN ORAL For Pain 1-3 10/11/16 16:45 11/10/16 16:44 Acetaminophen/ Hydrocodone Bitart ([place] 5/325) 1 tab Q4H PRN ORAL For Pain 4-10 10/11/16 16:45 10/18/16 16:44 10/15/16 03:06 Albuterol/ Ipratropium 3 ml 3 ml Q4H PRN HHN Shortness of Breath 10/12/16 08:45 10/17/16 08:44 Bisacodyl (Dulcolax) 10 mg DAILYPRN PRN RECTAL Constipation 10/11/16 20:45 11/10/16 20:44 Chlorhexidine Gluconate (Tania-Hex 2%) 1 applic DAILY TOPIC 10/12/16 09:00 11/11/16 08:59 10/15/16 08:32 Docusate Sodium (Colace) 100 mg TWICE A DAY ORAL 10/11/16 18:00 11/10/16 17:59 10/15/16 08:34 Ergocalciferol (Drisdol) 50,000 intlu MoTh ORAL 10/14/16 21:00 11/13/16 20:59 10/15/16 08:27 Finasteride (Proscar) 5 mg DAILY ORAL 10/12/16 09:00 11/11/16 08:59 10/15/16 08:28 Furosemide/ Dextrose (Lasix/D5W) 110 ml @ 11 mls/hr Q10H IV 10/14/16 12:00 11/13/16 11:59 10/15/16 07:19 Lactulose (Cephulac) 10 gm BID ORAL 10/11/16 18:00 11/10/16 17:59 10/15/16 08:34 Midodrine (Pro-Amatine) 10 mg THREE TIMES A DAY ORAL 10/11/16 18:00 11/10/16 17:59 10/15/16 08:30 Olanzapine (ZyPREXA) 2.5 mg BEDTIME ORAL 10/11/16 21:00 11/10/16 20:59 10/12/16 21:49 Pantoprazole (Protonix) 40 mg EVERY 12 HOURS ORAL 10/11/16 21:00 11/10/16 20:59 10/15/16 08:27 Rifaximin (Xifaxan) 550 mg TWICE A DAY ORAL 10/11/16 18:00 10/18/16 17:59 10/15/16 08:30 Tamsulosin HCl (Flomax) 0.4 mg BID ORAL 10/11/16 18:00 11/10/16 17:59 10/15/16 08:28 CHAY DOMINGO M.D. October 15, 2016 10:47
[2016-10-15 11:35] VITALS: BP 113/83
--- NOTE | 2016-10-15 13:08 | GI Progress Note ---
Assessment/Plan Problems: (1) Elevated CEA ICD Codes: R97.0 - Elevated carcinoembryonic antigen [CEA] SNOMED: 58431748, 975378711 (2) Thrombocytopenia ICD Codes: D69.6 - Thrombocytopenia, unspecified SNOMED: 028412102 (3) Ascites ICD Codes: R18.8 - Other ascites SNOMED: 221662982 Qualifiers: Qualified Codes: R18.8 - Other ascites (4) Anemia ICD Codes: D64.9 - Anemia, unspecified SNOMED: 684735718 (5) End-stage liver disease ICD Codes: K72.90 - Hepatic failure, unspecified without coma SNOMED: 597593072 Status: stable, unchanged Status Narrative Discussed with Dr. Bojorquez. Assessment/Plan S/P EGD - FINDINGS: 1. Severe portal hypertensive gastropathy. Status post biopsy. >> unremarkable 2. Distal esophageal varices grade I/II without any stigmata. Hep C positive elevated CEA >> 9.6 r/o SBP >> negative on last admission normal ammonia >> cont lactulose + Xifaxan OB positive 10/14/16 AFP WNL monitor H&H, transfuse prn ppi dc propranolol prn paracentesis fu labs PT evaluation poor prognosis Subjective Subjective agreeing to care today abdominal distention and discomfort Objective Last 24 Hour Vital Signs Date Time Temp Pulse Resp B/P Pulse Ox O2 Delivery O2 Flow Rate FiO2 10/15/16 11:35 98.1 92 20 113/83 100 Nasal Cannula 3.0 10/15/16 11:17 78 10/15/16 08:00 98.1 95 22 114/77 100 Nasal Cannula 2.0 10/15/16 07:51 78 10/15/16 07:00 Nasal Cannula 3.0 32 10/15/16 07:00 95 20 Nasal Cannula 3.0 32 10/15/16 07:00 100 Nasal Cannula 3.0 32 10/15/16 04:05 97.3 10/15/16 04:00 97.7 98 20 144/90 99 Nasal Cannula 4.0 10/15/16 04:00 91 10/15/16 00:00 97 10/15/16 00:00 97.3 106 20 134/95 99 Room Air 10/14/16 20:00 108 10/14/16 20:00 97.4 98 20 120/80 100 Room Air 10/14/16 19:30 80 20 Nasal Cannula 2.0 28 10/14/16 19:30 99 Nasal Cannula 2.0 28 10/14/16 19:30 Nasal Cannula 2.0 28 10/14/16 16:02 82 10/14/16 15:54 97.1 98 20 106/59 100 Nasal Cannula 4.0 Intake and Output 10/14/16 10/15/16 19:00 07:00 Intake Total 575 ml 99 ml Output Total 700 ml 800 ml Balance -125 ml -701 ml Intake Oral 520 ml IV Total 55 ml 99 ml Output Urine Total 700 ml 800 ml # Bowel Movements 1 1 Laboratory Tests Test 10/14/16 17:00 10/15/16 04:30 Stool Occult Blood Positive (NEGATIVE) White Blood Count 6.6 K/UL (4.8-10.8) Red Blood Count 2.67 M/UL (4.70-6.10) L Hemoglobin 8.7 G/DL (14.2-18.0) L Hematocrit 27.3 % (42.0-52.0) L Mean Corpuscular Volume 102 FL (80-99) H Mean Corpuscular Hemoglobin 32.8 PG (27.0-31.0) H Mean Corpuscular Hemoglobin Concent 32.1 G/DL (32.0-36.0) Red Cell Distribution Width 18.0 % (11.6-14.8) H Platelet Count 50 K/UL (150-450) L Mean Platelet Volume 6.1 FL (6.5-10.1) L Neutrophils (%) (Auto) % (45.0-75.0) Lymphocytes (%) (Auto) % (20.0-45.0) Monocytes (%) (Auto) % (1.0-10.0) Eosinophils (%) (Auto) % (0.0-3.0) Basophils (%) (Auto) % (0.0-2.0) Differential Total Cells Counted 100 Neutrophils % (Manual) 81 % (45-75) H Lymphocytes % (Manual) 10 % (20-45) L Monocytes % (Manual) 8 % (1-10) Eosinophils % (Manual) 0 % (0-3) Basophils % (Manual) 1 % (0-2) Band Neutrophils 0 % (0-8) Platelet Estimate Decreased L Platelet Morphology Normal Hypochromasia 1+ Anisocytosis 1+ Macrocytosis 1+ Prothrombin Time 18.5 SEC (9.30-11.50) H Prothromb Time International Ratio 1.8 (0.9-1.1) H Activated Partial Thromboplast Time 38 SEC (23-33) H Sodium Level 135 mEQ/L (135-145) Potassium Level 4.2 mEQ/L (3.4-4.9) Chloride Level 99 mEQ/L (98-107) Carbon Dioxide Level 21 mEQ/L (20-30) Anion Gap 15 (5-15) Blood Urea Nitrogen 45 mg/dL (7-23) H Creatinine 2.1 mg/dL (0.7-1.2) H Estimat Glomerular Filtration Rate 38.7 mL/min (>60) Glucose Level 133 mg/dL (74-106) H Uric Acid 10.9 mg/dL (3.0-7.5) H Calcium Level 8.0 mg/dL (8.6-10.2) L Phosphorus Level 3.3 mg/dL (2.5-4.8) Magnesium Level 1.6 mg/dL (1.7-2.5) L Total Bilirubin 2.6 mg/dL (0.0-1.2) H Direct Bilirubin 1.2 mg/dL (0.1-0.3) H Gamma Glutamyl Transpeptidase 56 U/L (8-61) Aspartate Amino Transf (AST/SGOT) 89 U/L (5-40) H Alanine Aminotransferase (ALT/SGPT) 33 U/L (3-41) Alkaline Phosphatase 200 U/L (40-129) H C-Reactive Protein, Quantitative 1.9 mg/dL (< 0.5) H Pro-B-Type Natriuretic Peptide 514 pg/mL (0-125) H Total Protein 6.7 g/dL (6.6-8.7) Albumin 1.8 g/dL (3.5-5.2) L Globulin 4.9 g/dL Albumin/Globulin Ratio 0.3 (1.0-2.7) L Height (Feet): 5 Height (Inches): 9.00 Weight (Pounds): 160 General Appearance: no apparent distress, alert Cardiovascular: normal rate Respiratory/Chest: normal breath sounds Abdominal Exam: distended, ascites Palacios,Bren Norris N.P. October 15, 2016 13:08
[2016-10-15 15:58] VITALS: BP 107/64
[2016-10-15 20:00] VITALS: BP 111/70
[2016-10-15] MEDS: OLANZapine 2.5mg tab ORAL SCH (21:03)
--- NOTE | 2016-10-15 22:21 | Cardiology Progress Note ---
Assessment/Plan Assessment/Plan 1. Bilateral lower extremity edema due to end stage liver disease. 2. Hx of junctional rhythm. 3. Hypotension due to low oncotic pressure, continue midodrine. Subjective Subjective Sinus rhythm at 91. No cardiac events. Objective Last 24 Hour Vital Signs Date Time Temp Pulse Resp B/P Pulse Ox O2 Delivery O2 Flow Rate FiO2 10/15/16 20:08 Nasal Cannula 3.0 32 10/15/16 20:07 91 20 Nasal Cannula 3.0 32 10/15/16 20:07 100 Nasal Cannula 3.0 32 10/15/16 20:00 98.0 95 22 111/70 100 Nasal Cannula 3.0 10/15/16 16:00 78 10/15/16 15:58 97.7 92 21 107/64 100 Nasal Cannula 3.0 10/15/16 11:35 98.1 92 20 113/83 100 Nasal Cannula 3.0 10/15/16 11:17 78 10/15/16 08:00 98.1 95 22 114/77 100 Nasal Cannula 2.0 10/15/16 07:51 78 10/15/16 07:00 Nasal Cannula 3.0 32 10/15/16 07:00 95 20 Nasal Cannula 3.0 32 10/15/16 07:00 100 Nasal Cannula 3.0 32 10/15/16 04:05 97.3 10/15/16 04:00 97.7 98 20 144/90 99 Nasal Cannula 4.0 10/15/16 04:00 91 10/15/16 00:00 97 10/15/16 00:00 97.3 106 20 134/95 99 Room Air Intake and Output 10/14/16 10/15/16 19:00 07:00 Intake Total 575 ml 99 ml Output Total 700 ml 800 ml Balance -125 ml -701 ml Intake Oral 520 ml IV Total 55 ml 99 ml Output Urine Total 700 ml 800 ml # Bowel Movements 1 1 2D Echo: LVEF 65%, Mild LVH, Grade I LVDD, Mod MR, RVSP 29 mmHg Laboratory Tests Test 10/15/16 04:30 White Blood Count 6.6 K/UL (4.8-10.8) Red Blood Count 2.67 M/UL (4.70-6.10) L Hemoglobin 8.7 G/DL (14.2-18.0) L Hematocrit 27.3 % (42.0-52.0) L Mean Corpuscular Volume 102 FL (80-99) H Mean Corpuscular Hemoglobin 32.8 PG (27.0-31.0) H Mean Corpuscular Hemoglobin Concent 32.1 G/DL (32.0-36.0) Red Cell Distribution Width 18.0 % (11.6-14.8) H Platelet Count 50 K/UL (150-450) L Mean Platelet Volume 6.1 FL (6.5-10.1) L Neutrophils (%) (Auto) % (45.0-75.0) Lymphocytes (%) (Auto) % (20.0-45.0) Monocytes (%) (Auto) % (1.0-10.0) Eosinophils (%) (Auto) % (0.0-3.0) Basophils (%) (Auto) % (0.0-2.0) Differential Total Cells Counted 100 Neutrophils % (Manual) 81 % (45-75) H Lymphocytes % (Manual) 10 % (20-45) L Monocytes % (Manual) 8 % (1-10) Eosinophils % (Manual) 0 % (0-3) Basophils % (Manual) 1 % (0-2) Band Neutrophils 0 % (0-8) Platelet Estimate Decreased L Platelet Morphology Normal Hypochromasia 1+ Anisocytosis 1+ Macrocytosis 1+ Prothrombin Time 18.5 SEC (9.30-11.50) H Prothromb Time International Ratio 1.8 (0.9-1.1) H Activated Partial Thromboplast Time 38 SEC (23-33) H Sodium Level 135 mEQ/L (135-145) Potassium Level 4.2 mEQ/L (3.4-4.9) Chloride Level 99 mEQ/L (98-107) Carbon Dioxide Level 21 mEQ/L (20-30) Anion Gap 15 (5-15) Blood Urea Nitrogen 45 mg/dL (7-23) H Creatinine 2.1 mg/dL (0.7-1.2) H Estimat Glomerular Filtration Rate 38.7 mL/min (>60) Glucose Level 133 mg/dL (74-106) H Uric Acid 10.9 mg/dL (3.0-7.5) H Calcium Level 8.0 mg/dL (8.6-10.2) L Phosphorus Level 3.3 mg/dL (2.5-4.8) Magnesium Level 1.6 mg/dL (1.7-2.5) L Total Bilirubin 2.6 mg/dL (0.0-1.2) H Direct Bilirubin 1.2 mg/dL (0.1-0.3) H Gamma Glutamyl Transpeptidase 56 U/L (8-61) Aspartate Amino Transf (AST/SGOT) 89 U/L (5-40) H Alanine Aminotransferase (ALT/SGPT) 33 U/L (3-41) Alkaline Phosphatase 200 U/L (40-129) H C-Reactive Protein, Quantitative 1.9 mg/dL (< 0.5) H Pro-B-Type Natriuretic Peptide 514 pg/mL (0-125) H Total Protein 6.7 g/dL (6.6-8.7) Albumin 1.8 g/dL (3.5-5.2) L Globulin 4.9 g/dL Albumin/Globulin Ratio 0.3 (1.0-2.7) L Objective HEENT: Atraumatic and normocephalic. Anicteric. Pupils are equal, round, and reactive to light and accommodation. Extraocular muscles intact. NECK: JVP is 5 cm, but no carotid bruit. Carotid upstrokes 2+ bilaterally. CARDIOVASCULAR: Normal S1 and S2. Regular rate and rhythm. A 2/6 mid systolic murmur left sternal border. PMI is at fourth intercostal space in the midclavicular line. LUNGS: Diminished breath sounds at both bases. ABDOMEN: Distended with ascites. Positive shifting dullness. EXTREMITIES: There is 3+ edema bilaterally. ASHLEY URIBE October 15, 2016 22:21
--- NOTE | 2016-10-15 23:35 | Pulmonology Progress Note ---
Assessment/Plan Problems: (1) Acute hepatic encephalopathy (2) Anasarca (3) Coagulopathy (4) Thrombocytopenia (5) Elevated CEA (6) hep c (7) End-stage liver disease Assessment/Plan pr refusing paracentesis needs to be "DNR" family meeting about plan of care. pt refusing all care Subjective ROS Limited/Unobtainable: No Constitutional: Reports: no symptoms HEENT: Repors: no symptoms Respiratory: Reports: no symptoms Cardiovascular: Reports: no symptoms Allergies: Coded Allergies: No Known Allergies (Unverified , 10/06/16) Objective Last 24 Hour Vital Signs Date Time Temp Pulse Resp B/P Pulse Ox O2 Delivery O2 Flow Rate FiO2 10/15/16 20:08 Nasal Cannula 3.0 32 10/15/16 20:07 91 20 Nasal Cannula 3.0 32 10/15/16 20:07 100 Nasal Cannula 3.0 32 10/15/16 20:00 98.0 95 22 111/70 100 Nasal Cannula 3.0 10/15/16 20:00 92 10/15/16 16:00 78 10/15/16 15:58 97.7 92 21 107/64 100 Nasal Cannula 3.0 10/15/16 11:35 98.1 92 20 113/83 100 Nasal Cannula 3.0 10/15/16 11:17 78 10/15/16 08:00 98.1 95 22 114/77 100 Nasal Cannula 2.0 10/15/16 07:51 78 10/15/16 07:00 Nasal Cannula 3.0 32 10/15/16 07:00 95 20 Nasal Cannula 3.0 32 10/15/16 07:00 100 Nasal Cannula 3.0 32 10/15/16 04:05 97.3 10/15/16 04:00 97.7 98 20 144/90 99 Nasal Cannula 4.0 10/15/16 04:00 91 10/15/16 00:00 97 10/15/16 00:00 97.3 106 20 134/95 99 Room Air Intake and Output 10/14/16 10/15/16 19:00 07:00 Intake Total 575 ml 99 ml Output Total 700 ml 800 ml Balance -125 ml -701 ml Intake Oral 520 ml IV Total 55 ml 99 ml Output Urine Total 700 ml 800 ml # Bowel Movements 1 1 General Appearance: WD/WN, cachetic HEENT: normocephalic, atraumatic Respiratory/Chest: chest wall non-tender, lungs clear Cardiovascular: normal peripheral pulses, normal rate Abdomen: normal bowel sounds, distended Genitourinary: normal external genitalia Extremities: no cyanosis Skin: no lesions, no ulcers Laboratory Tests 10/15/16 04:30: White Blood Count 6.6, Red Blood Count 2.67L, Hemoglobin 8.7L, Hematocrit 27.3L , Mean Corpuscular Volume 102H, Mean Corpuscular Hemoglobin 32.8H, Mean Corpuscular Hemoglobin Concent 32.1, Red Cell Distribution Width 18.0H, Platelet Count 50L, Mean Platelet Volume 6.1L, Neutrophils (%) (Auto) , Lymphocytes (%) (Auto) , Monocytes (%) (Auto) , Eosinophils (%) (Auto) , Basophils (%) (Auto) , Differential Total Cells Counted 100, Neutrophils % ( Manual) 81H, Lymphocytes % (Manual) 10L, Monocytes % (Manual) 8, Eosinophils % ( Manual) 0, Basophils % (Manual) 1, Band Neutrophils 0, Platelet Estimate DecreasedL, Platelet Morphology Normal, Hypochromasia 1+, Anisocytosis 1+, Macrocytosis 1+, Prothrombin Time 18.5H, Prothromb Time International Ratio 1.8H , Activated Partial Thromboplast Time 38H, Sodium Level 135, Potassium Level 4.2 , Chloride Level 99, Carbon Dioxide Level 21, Anion Gap 15, Blood Urea Nitrogen 45H, Creatinine 2.1H, Estimat Glomerular Filtration Rate 38.7, Glucose Level 133H, Uric Acid 10.9H, Calcium Level 8.0L, Phosphorus Level 3.3, Magnesium Level 1.6L, Total Bilirubin 2.6H, Direct Bilirubin 1.2H, Gamma Glutamyl Transpeptidase 56, Aspartate Amino Transf (AST/SGOT) 89H, Alanine Aminotransferase (ALT/SGPT) 33, Alkaline Phosphatase 200H, C-Reactive Protein, Quantitative 1.9H, Pro-B-Type Natriuretic Peptide 514H, Total Protein 6.7, Albumin 1.8L, Globulin 4.9, Albumin/Globulin Ratio 0.3L Current Medications Medications (Trade) Dose Ordered Sig/Carolynn Route PRN Reason Start Time Stop Time Status Last Admin Dose Admin Acetaminophen (Tylenol) 650 mg Q4H PRN ORAL For Pain 1-3 10/11/16 16:45 11/10/16 16:44 Acetaminophen/ Hydrocodone Bitart ([place] 5/325) 1 tab Q4H PRN ORAL For Pain 4-10 10/11/16 16:45 10/18/16 16:44 10/15/16 03:06 Albuterol/ Ipratropium 3 ml 3 ml Q4H PRN HHN Shortness of Breath 10/12/16 08:45 10/17/16 08:44 Bisacodyl (Dulcolax) 10 mg DAILYPRN PRN RECTAL Constipation 10/11/16 20:45 11/10/16 20:44 Chlorhexidine Gluconate (Tania-Hex 2%) 1 applic DAILY TOPIC 10/12/16 09:00 11/11/16 08:59 10/15/16 08:32 Docusate Sodium (Colace) 100 mg TWICE A DAY ORAL 10/11/16 18:00 11/10/16 17:59 10/15/16 18:14 Ergocalciferol (Drisdol) 50,000 intlu MoTh ORAL 10/14/16 21:00 11/13/16 20:59 10/15/16 08:27 Finasteride (Proscar) 5 mg DAILY ORAL 10/12/16 09:00 11/11/16 08:59 10/15/16 08:28 Furosemide/ Dextrose (Lasix/D5W) 110 ml @ 11 mls/hr Q10H IV 10/14/16 12:00 11/13/16 11:59 10/15/16 18:11 Lactulose (Cephulac) 10 gm BID ORAL 10/11/16 18:00 11/10/16 17:59 10/15/16 18:14 Midodrine (Pro-Amatine) 10 mg THREE TIMES A DAY ORAL 10/11/16 18:00 11/10/16 17:59 10/15/16 18:14 Olanzapine (ZyPREXA) 2.5 mg BEDTIME ORAL 10/11/16 21:00 11/10/16 20:59 10/15/16 21:03 Pantoprazole (Protonix) 40 mg EVERY 12 HOURS ORAL 10/11/16 21:00 11/10/16 20:59 10/15/16 21:03 Rifaximin (Xifaxan) 550 mg TWICE A DAY ORAL 10/11/16 18:00 10/18/16 17:59 10/15/16 18:14 Tamsulosin HCl (Flomax) 0.4 mg BID ORAL 10/11/16 18:00 11/10/16 17:59 10/15/16 18:14 CIRA KOCH October 15, 2016 23:35
[2016-10-16] VITALS: BP 127/86
[2016-10-16 04:00] VITALS: BP 106/62
[2016-10-16 05:30] LABS: MEAN CORPUSCULAR HEMOGLOBIN 33.1 PG (27.0-31.0); MEAN CORPUSCULAR HGB CONC 32.6 G/DL (32.0-36.0); MEAN CORPUSCULAR VOLUME 101 FL (80-99); MEAN PLATELET VOLUME 6.2 FL (6.5-10.1); PLATELET COUNT 39 K/UL (150-450); RED BLOOD COUNT 2.46 M/UL (4.70-6.10); RED CELL DISTRIBUTION WIDTH 17.6 % (11.6-14.8); WHITE BLOOD COUNT 5.2 K/UL (4.8-10.8)
[2016-10-16 05:55] LABS: CALCIUM 7.9 mg/dL (8.6-10.2); CREATININE 2.1 mg/dL (0.7-1.2); GLOMERULAR FILTRATION RATE 38.7 mL/min (>60); MAGNESIUM 1.5 mg/dL (1.7-2.5); PHOSPHORUS 3.7 mg/dL (2.5-4.8); POTASSIUM 3.4 mEQ/L (3.4-4.9)
[2016-10-16 07:56] LABS: ANISOCYTOSIS 1+; BAND NEUTROPHILS % (MANUAL) 0 % (0-8); BASOPHILS % (MANUAL) 0 % (0-2); EOSINOPHILS % (MANUAL) 1 % (0-3); HYPOCHROMASIA 3+; LYMPHOCYTES % (MANUAL) 8 % (20-45); MACROCYTES 1+; NEUTROPHILS % (MANUAL) 85 % (45-75); PLATELET ESTIMATE DECREASED; PLATELET MORPHOLOGY NORMAL; TOTAL CELLS COUNTED 100
[2016-10-16 08:00] VITALS: BP 117/72
[2016-10-16] MEDS: Docusate 100mg cap ORAL SCH (09:00)
[2016-10-16] MEDS: Midodrine 10mg tab ORAL SCH ×2 (09:00→13:00)
[2016-10-16] MEDS: Tamsulosin 0.4mg cap ORAL SCH (09:00)
[2016-10-16] MEDS: Rifaximin 550mg tab ORAL SCH (09:00)
[2016-10-16] MEDS: Lactulose 20gm/30ml UDC ORAL SCH (09:00)
[2016-10-16] MEDS: Dyna-Hex 2% Top Sol 8oz TOPIC SCH (09:00)
--- NOTE | 2016-10-16 09:00 | General Progress Note ---
Assessment/Plan Status: unchanged Assessment/Plan 1. Abdominal pain secondary to recurrent Ascites expansion, infection!? 2. Anasarca, multifactorial 3. s/p Status post mechanical fall. 2. S/P Left periprosthetic femoral fracture and second surgery in hospital 3. Alcoholic liver cirrhosis. 4. Elevated transaminase. 5. 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 6. Elevated tumor markers (CEA, AFP/alpha-fetoprotein). 7. Chronic hepatic encephalopathy. 8. Hypertension. 9. Dementia. 10. Psychosis. 11. History of hemiarthroplasty, left hip, recent. 12. Hepatitis C. 13. History of alcohol abuse. 14. Acute on chronic Anemia 15. Thrombocytopenia, secondary to alcohol abuse. 16. HypoNatremia 17. GIB: based on positive OB 18. Refusal of care/treatment Plan: Nephro GI Notes are reviewed Poor Prognosis Discussed the care with the sister; ( Reported that she is his DPOA- needs verification). She requested Full code POLST is filled out, Continue Refusal of Medication/treatment including paracentesis Medically stable for outpatient followup either home or back to [facility] Subjective ROS Limited/Unobtainable: Yes Allergies: Coded Allergies: No Known Allergies (Unverified , 10/06/16) Objective Last 24 Hour Vital Signs Date Time Temp Pulse Resp B/P Pulse Ox O2 Delivery O2 Flow Rate FiO2 10/16/16 08:00 98.2 105 19 117/72 96 Room Air 10/16/16 04:00 98.2 98 20 106/62 98 Nasal Cannula 2.0 10/16/16 04:00 96 10/16/16 00:00 97.7 98 20 127/86 100 Room Air 10/16/16 00:00 99 10/15/16 20:08 Nasal Cannula 3.0 32 10/15/16 20:07 91 20 Nasal Cannula 3.0 32 10/15/16 20:07 100 Nasal Cannula 3.0 32 10/15/16 20:00 98.0 95 22 111/70 100 Nasal Cannula 3.0 10/15/16 20:00 92 10/15/16 16:00 78 10/15/16 15:58 97.7 92 21 107/64 100 Nasal Cannula 3.0 10/15/16 11:35 98.1 92 20 113/83 100 Nasal Cannula 3.0 10/15/16 11:17 78 Intake and Output 10/15/16 10/16/16 19:00 07:00 Intake Total 795 ml 221 ml Output Total 850 ml 600 ml Balance -55 ml -379 ml Intake Oral 674 ml 100 ml IV Total 121 ml 121 ml Output Urine Total 850 ml 600 ml # Bowel Movements 1 Laboratory Tests 10/16/16 04:30: White Blood Count 5.2, Red Blood Count 2.46L, Hemoglobin 8.1L, Hematocrit 24.9L , Mean Corpuscular Volume 101H, Mean Corpuscular Hemoglobin 33.1H, Mean Corpuscular Hemoglobin Concent 32.6, Red Cell Distribution Width 17.6H, Platelet Count 39L, Mean Platelet Volume 6.2L, Neutrophils (%) (Auto) , Lymphocytes (%) (Auto) , Monocytes (%) (Auto) , Eosinophils (%) (Auto) , Basophils (%) (Auto) , Differential Total Cells Counted 100, Neutrophils % ( Manual) 85H, Lymphocytes % (Manual) 8L, Monocytes % (Manual) 6, Eosinophils % ( Manual) 1, Basophils % (Manual) 0, Band Neutrophils 0, Platelet Estimate DecreasedL, Platelet Morphology Normal, Hypochromasia 3+, Anisocytosis 1+, Macrocytosis 1+, Sodium Level 134L, Potassium Level 3.4, Chloride Level 98, Carbon Dioxide Level 22, Anion Gap 14, Blood Urea Nitrogen 46H, Creatinine 2.1H , Estimat Glomerular Filtration Rate 38.7, Glucose Level 127H, Calcium Level 7.9L, Phosphorus Level 3.7, Magnesium Level 1.5L Height (Feet): 5 Height (Inches): 9.00 Weight (Pounds): 160 General Appearance: no apparent distress EENT: PERRL/EOMI Neck: supple Cardiovascular: normal rate Respiratory/Chest: lungs clear Abdomen: other - ascitis-severe, no tenderness Extremities: non-tender Edema: 3+ Leg (L), 3+ Leg (R), 3+ Pedal (L), 3+ Pedal (R) Edema: severe edema Neurologic: disoriented, other - Dementia Shanita Oden MD October 16, 2016 09:00
--- NOTE | 2016-10-16 11:16 | GI Progress Note ---
Assessment/Plan Problems: (1) Elevated CEA ICD Codes: R97.0 - Elevated carcinoembryonic antigen [CEA] SNOMED: 32022545, 744128907 (2) Thrombocytopenia ICD Codes: D69.6 - Thrombocytopenia, unspecified SNOMED: 192956960 (3) Ascites ICD Codes: R18.8 - Other ascites SNOMED: 975613179 Qualifiers: Qualified Codes: R18.8 - Other ascites (4) Anemia ICD Codes: D64.9 - Anemia, unspecified SNOMED: 162849578 (5) End-stage liver disease ICD Codes: K72.90 - Hepatic failure, unspecified without coma SNOMED: 518180710 Status: unchanged Status Narrative Discussed with Dr. Bojorquez. Assessment/Plan S/P EGD - FINDINGS: 1. Severe portal hypertensive gastropathy. Status post biopsy. >> unremarkable 2. Distal esophageal varices grade I/II without any stigmata. Hep C positive elevated CEA >> 9.6 r/o SBP >> negative on last admission normal ammonia >> cont lactulose + Xifaxan OB positive 10/14/16 AFP WNL monitor H&H, transfuse prn ppi dc propranolol prn paracentesis fu labs PT evaluation poor prognosis Subjective Subjective agreeing to care today abdominal distention and discomfort Objective Last 24 Hour Vital Signs Date Time Temp Pulse Resp B/P Pulse Ox O2 Delivery O2 Flow Rate FiO2 10/16/16 08:00 109 10/16/16 08:00 98.2 105 19 117/72 96 Room Air 10/16/16 04:00 98.2 98 20 106/62 98 Nasal Cannula 2.0 10/16/16 04:00 96 10/16/16 00:00 97.7 98 20 127/86 100 Room Air 10/16/16 00:00 99 10/15/16 20:08 Nasal Cannula 3.0 32 10/15/16 20:07 91 20 Nasal Cannula 3.0 32 10/15/16 20:07 100 Nasal Cannula 3.0 32 10/15/16 20:00 98.0 95 22 111/70 100 Nasal Cannula 3.0 10/15/16 20:00 92 10/15/16 16:00 78 10/15/16 15:58 97.7 92 21 107/64 100 Nasal Cannula 3.0 10/15/16 11:35 98.1 92 20 113/83 100 Nasal Cannula 3.0 10/15/16 11:17 78 Intake and Output 10/15/16 10/16/16 19:00 07:00 Intake Total 795 ml 221 ml Output Total 850 ml 600 ml Balance -55 ml -379 ml Intake Oral 674 ml 100 ml IV Total 121 ml 121 ml Output Urine Total 850 ml 600 ml # Bowel Movements 1 Laboratory Tests Test 10/16/16 04:30 White Blood Count 5.2 K/UL (4.8-10.8) Red Blood Count 2.46 M/UL (4.70-6.10) L Hemoglobin 8.1 G/DL (14.2-18.0) L Hematocrit 24.9 % (42.0-52.0) L Mean Corpuscular Volume 101 FL (80-99) H Mean Corpuscular Hemoglobin 33.1 PG (27.0-31.0) H Mean Corpuscular Hemoglobin Concent 32.6 G/DL (32.0-36.0) Red Cell Distribution Width 17.6 % (11.6-14.8) H Platelet Count 39 K/UL (150-450) L Mean Platelet Volume 6.2 FL (6.5-10.1) L Neutrophils (%) (Auto) % (45.0-75.0) Lymphocytes (%) (Auto) % (20.0-45.0) Monocytes (%) (Auto) % (1.0-10.0) Eosinophils (%) (Auto) % (0.0-3.0) Basophils (%) (Auto) % (0.0-2.0) Differential Total Cells Counted 100 Neutrophils % (Manual) 85 % (45-75) H Lymphocytes % (Manual) 8 % (20-45) L Monocytes % (Manual) 6 % (1-10) Eosinophils % (Manual) 1 % (0-3) Basophils % (Manual) 0 % (0-2) Band Neutrophils 0 % (0-8) Platelet Estimate Decreased L Platelet Morphology Normal Hypochromasia 3+ Anisocytosis 1+ Macrocytosis 1+ Sodium Level 134 mEQ/L (135-145) L Potassium Level 3.4 mEQ/L (3.4-4.9) Chloride Level 98 mEQ/L (98-107) Carbon Dioxide Level 22 mEQ/L (20-30) Anion Gap 14 (5-15) Blood Urea Nitrogen 46 mg/dL (7-23) H Creatinine 2.1 mg/dL (0.7-1.2) H Estimat Glomerular Filtration Rate 38.7 mL/min (>60) Glucose Level 127 mg/dL (74-106) H Calcium Level 7.9 mg/dL (8.6-10.2) L Phosphorus Level 3.7 mg/dL (2.5-4.8) Magnesium Level 1.5 mg/dL (1.7-2.5) L Height (Feet): 5 Height (Inches): 9.00 Weight (Pounds): 160 General Appearance: no apparent distress, alert, thin Cardiovascular: normal rate Respiratory/Chest: normal breath sounds Abdominal Exam: distended, ascites Bren Palacios N.P. October 16, 2016 11:16
[2016-10-16 12:00] VITALS: BP 113/72
--- NOTE | 2016-10-16 12:24 | Pulmonology Progress Note ---
Assessment/Plan Problems: (1) Acute hepatic encephalopathy (2) Anasarca (3) Coagulopathy (4) Thrombocytopenia (5) Elevated CEA (6) hep c (7) End-stage liver disease Assessment/Plan pr refusing paracentesis needs to be "DNR" family meeting about plan of care. pt refusing all care family meeting for plan of care Subjective ROS Limited/Unobtainable: No Constitutional: Reports: no symptoms HEENT: Repors: no symptoms Allergies: Coded Allergies: No Known Allergies (Unverified , 10/06/16) Objective Last 24 Hour Vital Signs Date Time Temp Pulse Resp B/P Pulse Ox O2 Delivery O2 Flow Rate FiO2 10/16/16 12:00 98.3 94 19 113/72 98 Room Air 10/16/16 08:00 109 10/16/16 08:00 98.2 105 19 117/72 96 Room Air 10/16/16 04:00 98.2 98 20 106/62 98 Nasal Cannula 2.0 10/16/16 04:00 96 10/16/16 00:00 97.7 98 20 127/86 100 Room Air 10/16/16 00:00 99 10/15/16 20:08 Nasal Cannula 3.0 32 10/15/16 20:07 91 20 Nasal Cannula 3.0 32 10/15/16 20:07 100 Nasal Cannula 3.0 32 10/15/16 20:00 98.0 95 22 111/70 100 Nasal Cannula 3.0 10/15/16 20:00 92 10/15/16 16:00 78 10/15/16 15:58 97.7 92 21 107/64 100 Nasal Cannula 3.0 Intake and Output 10/15/16 10/16/16 19:00 07:00 Intake Total 795 ml 221 ml Output Total 850 ml 600 ml Balance -55 ml -379 ml Intake Oral 674 ml 100 ml IV Total 121 ml 121 ml Output Urine Total 850 ml 600 ml # Bowel Movements 1 General Appearance: WD/WN HEENT: atraumatic, PERRL Respiratory/Chest: chest wall non-tender, lungs clear Cardiovascular: normal peripheral pulses, regular rhythm Abdomen: normal bowel sounds, no organomegaly, distended Genitourinary: normal external genitalia Extremities: no cyanosis Skin: no rash, no ulcers 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 Lymphatic: no neck adenopathy Laboratory Tests 10/16/16 04:30: White Blood Count 5.2, Red Blood Count 2.46L, Hemoglobin 8.1L, Hematocrit 24.9L , Mean Corpuscular Volume 101H, Mean Corpuscular Hemoglobin 33.1H, Mean Corpuscular Hemoglobin Concent 32.6, Red Cell Distribution Width 17.6H, Platelet Count 39L, Mean Platelet Volume 6.2L, Neutrophils (%) (Auto) , Lymphocytes (%) (Auto) , Monocytes (%) (Auto) , Eosinophils (%) (Auto) , Basophils (%) (Auto) , Differential Total Cells Counted 100, Neutrophils % ( Manual) 85H, Lymphocytes % (Manual) 8L, Monocytes % (Manual) 6, Eosinophils % ( Manual) 1, Basophils % (Manual) 0, Band Neutrophils 0, Platelet Estimate DecreasedL, Platelet Morphology Normal, Hypochromasia 3+, Anisocytosis 1+, Macrocytosis 1+, Sodium Level 134L, Potassium Level 3.4, Chloride Level 98, Carbon Dioxide Level 22, Anion Gap 14, Blood Urea Nitrogen 46H, Creatinine 2.1H , Estimat Glomerular Filtration Rate 38.7, Glucose Level 127H, Calcium Level 7.9L, Phosphorus Level 3.7, Magnesium Level 1.5L Current Medications Medications (Trade) Dose Ordered Sig/Carolynn Route PRN Reason Start Time Stop Time Status Last Admin Dose Admin Acetaminophen (Tylenol) 650 mg Q4H PRN ORAL For Pain 1-3 10/11/16 16:45 11/10/16 16:44 Acetaminophen/ Hydrocodone Bitart (Moville 5/325) 1 tab Q4H PRN ORAL For Pain 4-10 10/11/16 16:45 10/18/16 16:44 10/15/16 03:06 Albuterol/ Ipratropium 3 ml 3 ml Q4H PRN HHN Shortness of Breath 10/12/16 08:45 10/17/16 08:44 Bisacodyl (Dulcolax) 10 mg DAILYPRN PRN RECTAL Constipation 10/11/16 20:45 11/10/16 20:44 Chlorhexidine Gluconate (Tania-Hex 2%) 1 applic DAILY TOPIC 10/12/16 09:00 11/11/16 08:59 10/16/16 09:00 Docusate Sodium (Colace) 100 mg TWICE A DAY ORAL 10/11/16 18:00 11/10/16 17:59 10/15/16 18:14 Ergocalciferol (Drisdol) 50,000 intlu MoTh ORAL 10/14/16 21:00 11/13/16 20:59 10/15/16 08:27 Finasteride (Proscar) 5 mg DAILY ORAL 10/12/16 09:00 11/11/16 08:59 10/15/16 08:28 Furosemide/ Dextrose (Lasix/D5W) 110 ml @ 11 mls/hr Q10H IV 10/14/16 12:00 11/13/16 11:59 10/16/16 03:47 Lactulose (Cephulac) 10 gm BID ORAL 10/11/16 18:00 11/10/16 17:59 10/15/16 18:14 Midodrine (Pro-Amatine) 10 mg THREE TIMES A DAY ORAL 10/11/16 18:00 11/10/16 17:59 10/15/16 18:14 Olanzapine (ZyPREXA) 2.5 mg BEDTIME ORAL 10/11/16 21:00 11/10/16 20:59 10/15/16 21:03 Pantoprazole (Protonix) 40 mg EVERY 12 HOURS ORAL 10/11/16 21:00 11/10/16 20:59 10/15/16 21:03 Rifaximin (Xifaxan) 550 mg TWICE A DAY ORAL 10/11/16 18:00 10/18/16 17:59 10/15/16 18:14 Tamsulosin HCl (Flomax) 0.4 mg BID ORAL 10/11/16 18:00 11/10/16 17:59 10/15/16 18:14 CIRA KOCH October 16, 2016 12:23
--- NOTE | 2016-10-16 13:37 | General Progress Note ---
Assessment/Plan Status: unchanged Status Narrative Cr 2.1 stable Assessment/Plan Acute renal failure- Severe Anemia h/o HyperKalemia- resolved Proteinuria UTI High INR others: 1. s/p Status post mechanical fall. 2. Left periprosthetic femoral fracture. 3. Alcoholic liver cirrhosis. 4. s/p Elevated transaminase. 5. 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 6. Elevated tumor markers (CEA, AFP/alpha-fetoprotein). 7. Acute hepatic encephalopathy. 8. Hypertension. 9. Dementia. 10. Psychosis. 11. History of hemiarthroplasty, left hip, recent. 12. Hepatitis C. 13. History of alcohol abuse. 14. Anemia of chronic disease. 15. Thrombocytopenia, secondary to alcohol abuse. Plan; remains full code- mag supplement Transfuse as needed Midodrine for low BP hold mind altering meds- antibiotics - avoid nephrotoxics urine studies monitor renal parameters Tap Ascitis PRN consider comfort care- prognosis dismal- per orders Subjective ROS Limited/Unobtainable: No Constitutional: Reports: malaise Allergies: Coded Allergies: No Known Allergies (Unverified , 10/06/16) Objective Last 24 Hour Vital Signs Date Time Temp Pulse Resp B/P Pulse Ox O2 Delivery O2 Flow Rate FiO2 10/16/16 12:00 109 10/16/16 12:00 98.3 94 19 113/72 98 Room Air 10/16/16 08:00 109 10/16/16 08:00 98.2 105 19 117/72 96 Room Air 10/16/16 04:00 98.2 98 20 106/62 98 Nasal Cannula 2.0 10/16/16 04:00 96 10/16/16 00:00 97.7 98 20 127/86 100 Room Air 10/16/16 00:00 99 10/15/16 20:08 Nasal Cannula 3.0 32 10/15/16 20:07 91 20 Nasal Cannula 3.0 32 10/15/16 20:07 100 Nasal Cannula 3.0 32 10/15/16 20:00 98.0 95 22 111/70 100 Nasal Cannula 3.0 10/15/16 20:00 92 10/15/16 16:00 78 10/15/16 15:58 97.7 92 21 107/64 100 Nasal Cannula 3.0 Intake and Output 10/15/16 10/16/16 19:00 07:00 Intake Total 795 ml 221 ml Output Total 850 ml 600 ml Balance -55 ml -379 ml Intake Oral 674 ml 100 ml IV Total 121 ml 121 ml Output Urine Total 850 ml 600 ml # Bowel Movements 1 Laboratory Tests 10/16/16 04:30: White Blood Count 5.2, Red Blood Count 2.46L, Hemoglobin 8.1L, Hematocrit 24.9L , Mean Corpuscular Volume 101H, Mean Corpuscular Hemoglobin 33.1H, Mean Corpuscular Hemoglobin Concent 32.6, Red Cell Distribution Width 17.6H, Platelet Count 39L, Mean Platelet Volume 6.2L, Neutrophils (%) (Auto) , Lymphocytes (%) (Auto) , Monocytes (%) (Auto) , Eosinophils (%) (Auto) , Basophils (%) (Auto) , Differential Total Cells Counted 100, Neutrophils % ( Manual) 85H, Lymphocytes % (Manual) 8L, Monocytes % (Manual) 6, Eosinophils % ( Manual) 1, Basophils % (Manual) 0, Band Neutrophils 0, Platelet Estimate DecreasedL, Platelet Morphology Normal, Hypochromasia 3+, Anisocytosis 1+, Macrocytosis 1+, Sodium Level 134L, Potassium Level 3.4, Chloride Level 98, Carbon Dioxide Level 22, Anion Gap 14, Blood Urea Nitrogen 46H, Creatinine 2.1H , Estimat Glomerular Filtration Rate 38.7, Glucose Level 127H, Calcium Level 7.9L, Phosphorus Level 3.7, Magnesium Level 1.5L Height (Feet): 5 Height (Inches): 9.00 Weight (Pounds): 160 General Appearance: no apparent distress Objective other PE not changed PRINCESS PALACIO October 16, 2016 13:37
--- NOTE | 2016-10-16 18:26 | Diagnostic Imaging Report ---
APPROVED REPORT CPT Code: 36727 Present Symptoms Comments: Swelling BILATERAL: Imaging reveals a patent deep venous system bilaterally. There is no evidence of thrombus within the femoral, popliteal or tibial segments. The greater saphenous veins are also within normal limits. Doppler indicates normal spontaneous flow within these segments.
--- NOTE | 2016-10-16 19:34 | Cardiology Progress Note ---
Assessment/Plan Assessment/Plan 1. Bilateral lower extremity edema due to end stage liver disease. 2. Hx of junctional rhythm in the previous admission, resolved in SR/ST 3. Hypotension due to low oncotic pressure, continue midodrine. 4. Normal LV systolic function. Subjective Subjective Sinus rhythm at 95. Still with lower extremity edema, no CP or SOB. Refusing paracentesis Awaiting family decision regarding DNR Objective Last 24 Hour Vital Signs Date Time Temp Pulse Resp B/P Pulse Ox O2 Delivery O2 Flow Rate FiO2 10/16/16 12:00 109 10/16/16 12:00 98.3 94 19 113/72 98 Room Air 10/16/16 08:00 109 10/16/16 08:00 98.2 105 19 117/72 96 Room Air 10/16/16 07:16 94 20 Nasal Cannula 3.0 10/16/16 07:16 Nasal Cannula 3.0 10/16/16 07:16 100 Nasal Cannula 3.0 10/16/16 04:00 98.2 98 20 106/62 98 Nasal Cannula 2.0 10/16/16 04:00 96 10/16/16 00:00 97.7 98 20 127/86 100 Room Air 10/16/16 00:00 99 10/15/16 20:08 Nasal Cannula 3.0 32 10/15/16 20:07 91 20 Nasal Cannula 3.0 32 10/15/16 20:07 100 Nasal Cannula 3.0 32 10/15/16 20:00 98.0 95 22 111/70 100 Nasal Cannula 3.0 10/15/16 20:00 92 Intake and Output 10/15/16 10/16/16 19:00 07:00 Intake Total 795 ml 221 ml Output Total 850 ml 600 ml Balance -55 ml -379 ml Intake Oral 674 ml 100 ml IV Total 121 ml 121 ml Output Urine Total 850 ml 600 ml # Bowel Movements 1 2D Echo: LVEF 65%, Mild LVH, Grade I LVDD, Mod MR, RVSP 29 mmHg Laboratory Tests Test 10/16/16 04:30 White Blood Count 5.2 K/UL (4.8-10.8) Red Blood Count 2.46 M/UL (4.70-6.10) L Hemoglobin 8.1 G/DL (14.2-18.0) L Hematocrit 24.9 % (42.0-52.0) L Mean Corpuscular Volume 101 FL (80-99) H Mean Corpuscular Hemoglobin 33.1 PG (27.0-31.0) H Mean Corpuscular Hemoglobin Concent 32.6 G/DL (32.0-36.0) Red Cell Distribution Width 17.6 % (11.6-14.8) H Platelet Count 39 K/UL (150-450) L Mean Platelet Volume 6.2 FL (6.5-10.1) L Neutrophils (%) (Auto) % (45.0-75.0) Lymphocytes (%) (Auto) % (20.0-45.0) Monocytes (%) (Auto) % (1.0-10.0) Eosinophils (%) (Auto) % (0.0-3.0) Basophils (%) (Auto) % (0.0-2.0) Differential Total Cells Counted 100 Neutrophils % (Manual) 85 % (45-75) H Lymphocytes % (Manual) 8 % (20-45) L Monocytes % (Manual) 6 % (1-10) Eosinophils % (Manual) 1 % (0-3) Basophils % (Manual) 0 % (0-2) Band Neutrophils 0 % (0-8) Platelet Estimate Decreased L Platelet Morphology Normal Hypochromasia 3+ Anisocytosis 1+ Macrocytosis 1+ Sodium Level 134 mEQ/L (135-145) L Potassium Level 3.4 mEQ/L (3.4-4.9) Chloride Level 98 mEQ/L (98-107) Carbon Dioxide Level 22 mEQ/L (20-30) Anion Gap 14 (5-15) Blood Urea Nitrogen 46 mg/dL (7-23) H Creatinine 2.1 mg/dL (0.7-1.2) H Estimat Glomerular Filtration Rate 38.7 mL/min (>60) Glucose Level 127 mg/dL (74-106) H Calcium Level 7.9 mg/dL (8.6-10.2) L Phosphorus Level 3.7 mg/dL (2.5-4.8) Magnesium Level 1.5 mg/dL (1.7-2.5) L Objective HEENT: Atraumatic and normocephalic. Anicteric. Pupils are equal, round, and reactive to light and accommodation. Extraocular muscles intact, confused. NECK: JVP is 5 cm, but no carotid bruit. Carotid upstrokes 2+ bilaterally. CARDIOVASCULAR: Normal S1 and S2. Regular rate and rhythm. A 2/6 mid systolic murmur left sternal border. PMI is at fourth intercostal space in the midclavicular line. LUNGS: Diminished breath sounds at both bases. ABDOMEN: Distended with ascites. Positive shifting dullness. EXTREMITIES: There is 3+ edema bilaterally. ASHLEY URIBE October 16, 2016 19:34
--- NOTE | 2016-10-18 12:11 | Discharge Summary ---
Discharge Summary Hospital Course Date of Admission October 09, 2016 at 15:39 Date of Discharge October 16, 2016 at 13:46 Admitting Diagnosis fluid overload,acities HPI Channing Freed is a 66 year old male who was admitted on October 09, 2016 at 15:39 for Fluid Overload, Acities Hospital Course [id number] Discharge Discharge Disposition Patient was discharged to SNF/Subacute Facility(03) Discharge Diagnoses: Tiesha Holloway NP October 18, 2016 12:11
== END 2016-10-16 13:46 | DRG 432 ==
LOC: EDBEDREQ 14:34 → EMR 14:54 → 4W 15:39 → EDBEDREQ 17:04 → 4W 18:54 → 2W 10-11 13:44
DX: K70.31 Alcoholic cirrhosis of liver with ascites (principal); E43 Unspecified severe protein-calorie malnutrition; K70.40 Alcoholic hepatic failure without coma; N17.9 Acute kidney failure, unspecified; D68.4 Acquired coagulation factor deficiency; K76.6 Portal hypertension; D69.59 Other secondary thrombocytopenia; E87.1 Hypo-osmolality and hyponatremia; F03.90 Unspecified dementia, unspecified severity, without behavioral disturbance, psychotic disturbance, mood disturbance, and anxiety; F05 Delirium due to known physiological condition; I95.9 Hypotension, unspecified; K72.10 Chronic hepatic failure without coma; K31.89 Other diseases of stomach and duodenum; F10.10 Alcohol abuse, uncomplicated; Z68.22 Body mass index [BMI] 22.0-22.9, adult; I10 Essential (primary) hypertension; B19.20 Unspecified viral hepatitis C without hepatic coma; R97.0 Elevated carcinoembryonic antigen [CEA]; F32.9 Major depressive disorder, single episode, unspecified; D63.8 Anemia in other chronic diseases classified elsewhere; F31.9 Bipolar disorder, unspecified; K21.9 Gastro-esophageal reflux disease without esophagitis; E88.09 Other disorders of plasma-protein metabolism, not elsewhere classified; Z91.81 History of falling; F29 Unspecified psychosis not due to a substance or known physiological condition; Z96.642 Presence of left artificial hip joint
CPT/HCPCS: 36415; 71010; 74176; 76705; 76775; 80048; 80053; 81003; 82105; 82140; 82248; 82270; 82977; 83605; 83690; 83735; 83880; 84100; 84484; 84550; 85007; 85025; 85610; 85730; 86140; 86850; 86900; 86901; 86920; 87040; 87081; 87086; 93005; 93970; 94664; 94760; 96374; 96375; J2405; J3430